=== PATIENT | male | born 1955 | race Caucasian/White ===

== ENCOUNTER 2019-02-28 06:03 | Inpatient (IN) | payer MEDICARE ==
[2019-02-25 14:13] LABS: BASOPHILS # (AUTO) 0.1 (0.0-0.1); BASOPHILS % 1.4 % (0.0-1.0); EOSINOPHILS # (AUTO) 0.3 (0.0-0.4); EOSINOPHILS % 4.5 % (0.0-6.0); HEMATOCRIT 47.1 % (38.2-49.6); HEMOGLOBIN 15.1 g/dL (14.0-18.0); LYMPHOCYTES # (AUTO) 0.9 (1.0-3.2); LYMPHOCYTES % 14.5 % (18.0-39.1); MEAN CORPUSCULAR HGB CONC 32.1 g/dL (31-35); MEAN CORPUSCULAR VOLUME 99.8 fL (81-99); MONOCYTES # (AUTO) 0.6 (0.2-0.8); MONOCYTES % 8.6 % (4.4-11.3); NEUTROPHILS # (AUTO) 4.6 (2.1-6.9); NEUTROPHILS % 70.5 % (38.7-80.0); PLATELET COUNT 136 x10e3/uL (140-360); RED BLOOD COUNT 4.72 x10e6/uL (4.3-5.7); RED CELL DISTRIBUTION WIDTH 15.8 % (11.7-14.4)
[2019-02-25 14:33] LABS: INR 1.03
[2019-02-25 14:34] LABS: PARTIAL THROMBOPLASTIN TIME 30.2 seconds (23.8-35.5)
[2019-02-25 14:41] LABS: ALBUMIN 3.8 g/dL (3.5-5.0); ALBUMIN/GLOBULIN RATIO 0.8 (0.8-2.0); ANION GAP 17.2 mmol/L (8-16); CALCIUM 9.4 mg/dL (8.4-10.2); CREATININE, SERUM 5.4 mg/dL (0.72-1.25); POTASSIUM 4.2 mmol/L (3.5-5.1)
--- NOTE | 2019-02-25 15:17 | Diagnostic Imaging Report ---
EXAMINATION: CHEST 2 VIEWS INDICATION: Pre-operative COMPARISON: None FINDINGS: TUBES and LINES: Left IJ tunneled hemodialysis catheter terminates in the right atrium. LUNGS: The lungs are well-inflated. There are postoperative findings of the left lung with surgical clips overlying areas of interstitial scarring at the left upper lung zone. No focal consolidation or pulmonary edema. PLEURA: Small left pleural effusion. No right pleural effusion. No pneumothorax. HEART AND MEDIASTINUM: The cardiomediastinal silhouette is normal in size and contour. BONES AND SOFT TISSUES: No acute fracture or dislocation. UPPER ABDOMEN: No free air under the diaphragm. Surgical clips overlie the left mid abdomen. IMPRESSION: Postoperative changes of the left lung. Small left pleural effusion. No focal consolidation or pulmonary edema. Signed by: Diana Sanchez MD on 02/25/2019 3:14 PM
--- NOTE | 2019-02-25 16:40 | NUR ---
JUAN VENEGAS RN WITH DR. LAWRENCE'S OFFICE NOTIFIED OF SMALL LEFT PLEURAL EFFUSION CHEST X-RAY RESULT.
[~2019-02-28] VITALS: Ht 175.3 cm; Wt 59.4 kg
[2019-02-28] VITALS (9 sets, daily range): BP systolic 140–189; BP diastolic 67–121
[~2019-02-28 06:03] MED LIST: CARVEDILOL12.5 MG PO; HYDRALAZINE HCL25 MG PO; LISINOPRIL10 MG PO; LYRICA75 MG PO; MELOXICAM7.5 MG PO; METOPROLOL TART25 MG PO; NIFEDIPINE ER30 M1 PO; VITAMIN D350000 UNIT PO
--- OUTSIDE RECORDS SUMMARY | 2019-02-28 06:11 | XMS REPORT | Continuity of Care Document ---
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 Name Role Phone [employer] Information Sensor[employer] Unavailable Unavailable Problems Problem Status Onset Date Classification Date Reported Comments Source UNK Active 01/03/2019 [facility] Pain in right elbow 06/15/2018 12/26/2018 OP[facility] [place]aman[place] M25.521 - PAIN IN RIGHT ELBOW Active 06/08/2018 [facility] [place] OTHER Active 02/15/2018 [facility] VOLUME OVERLOAD Active 02/15/2018 [facility] M62.81 MUSCLE WEAKNESS 02/11/2018 Diagnosis 02/16/2018 [facility] L97.929 NON-PRESSURE CHRONIC ULCER OF UNSPECIFIED PART OF LEFT LOWER LEG WITH UNSPECIFIED SEVERITY 02/09/2018 Diagnosis 02/16/2018 SNF: [facility] [place] [facility] M86.672 OTHER CHRONIC OSTEOMYELITIS, LEFT ANKLE AND FOOT 02/09/2018 Diagnosis 02/16/2018 [facility] E46 UNSPECIFIED PROTEIN-[place]OR[place] MALNUTRITION 02/09/2018 Diagnosis 02/16/2018 [facility] E88.9 METABOLIC DISORDER, UNSPECIFIED 02/09/2018 Diagnosis 02/16/2018 SNF: [facility] AMS Active 02/02/2018 [facility] Acinetobacter1, 2 Active 01/04/2018 Problem 12/26/2018 wound, 01/04/2018 Problem added by Discern Expert. REY Ansari,[facility] VRE5, 6 Active 01/04/2018 Problem 12/26/2018 wound, 01/04/2018 Problem added by Discern Expert[facility] Enterobacter3, 4 Active 01/03/2018 Problem 12/26/2018 wound, 01/03/2018 Problem added by Discern Expert. REY Ansari [place] DIZZINESS Active 01/01/2018 [facility] NEAR SYNCOPE Active 01/01/2018 [facility] ABNORMAL LABS Active 12/12/2017 [facility] CELLULITIS, HYPERKALEMIA Active 12/12/2017 [facility] R27.8 OTHER LACK OF COORDINATION 11/24/2017 Diagnosis 02/16/2018 SNF: [facility] R26.89 OTHER ABNORMALITIES OF GAIT AND MOBILITY 11/24/2017 Diagnosis 02/16/2018 SNF: [facility] Z89.412 ACQUIRED ABSENCE OF LEFT GREAT TOE 11/24/2017 Diagnosis 02/16/2018 SNF: [facility] D63.1 ANEMIA IN CHRONIC KIDNEY DISEASE 11/24/2017 Diagnosis 02/16/2018 SNF: [facility] N04.9 NEPHROTIC SYNDROME WITH UNSPECIFIED MORPHOLOGIC CHANGES 11/24/2017 Diagnosis 02/16/2018 SNF: [facility] L03.115 CELLULITIS OF RIGHT LOWER LIMB 11/24/2017 Diagnosis 02/16/2018 SN[facility]: [facility] M86.172 OTHER ACUTE OSTEOMYELITIS, LEFT ANKLE AND FOOT 11/24/2017 Diagnosis 02/16/2018 SNF: [facility] E08.8 DIABETES MELLITUS DUE TO UNDERLYING CONDITION WITH UNSPECIFIED COMPLICATIONS 09/27/2017 Diagnosis 02/16/2018 SN[facility]: [facility] I73.9 PERIPHERAL VASCULAR DISEASE, UNSPECIFIED 09/27/2017 Diagnosis 02/16/2018 SN[facility]: [facility] I10 ESSENTIAL HYPERTENSION 09/27/2017 Diagnosis 02/16/2018 SN[facility]: [facility] I50.20 UNSPECIFIED SYSTOLIC HEART FAILURE 09/27/2017 Diagnosis 02/16/2018 SN[facility]: [facility] Z99.2 DEPENDENCE ON RENAL DIALYSIS 09/27/2017 Diagnosis 02/16/2018 SN[facility]: [facility] I25.10 ATHEROSCLEROTIC HEART DISEASE OF [place] CORONARY ARTERY WITHOUT ANGINA PECTORIS 09/27/2017 Diagnosis 02/16/2018 SN[facility]: [facility] E11.319 TYPE 2 DIABETES MELLITUS WITH UNSPECIFIED DIABETIC RETINOPATHY WITHOUT MACULAR EDEMA 09/27/2017 Diagnosis 02/16/2018 SN[facility]: [facility] E78.5 HYPERLIPIDEMIA, UNSPECIFIED 09/27/2017 Diagnosis 02/16/2018 SN[facility]: [facility] E13.621 OTHER SPECIFIED DIABETES MELLITUS WITH FOOT ULCER 09/27/2017 Diagnosis 02/16/2018 SNF: [facility] N18.6 END STAGE RENAL DISEASE 09/27/2017 Diagnosis 02/16/2018 SNF: [facility] E11.40 TYPE 2 DIABETES MELLITUS WITH DIABETIC NEUROPATHY, UNSPECIFIED 09/27/2017 Diagnosis 02/16/2018 SNF: [facility] I96 GANGRENE, NOT ELSEWHERE CLASSIFIED 09/27/2017 Diagnosis 02/16/2018 SNF: [facility] A41.9 SEPSIS, UNSPECIFIED ORGANISM 09/27/2017 Diagnosis 12/01/2017 SNF: [facility] Carotid artery disease Active 07/09/2017 Problem 01/19/2018 [facility] History of renal cell cancer Active 07/06/2017 Problem 01/19/2018 [facility] Acute on chronic combined systolic and diastolic CHF, NYHA class 3 Active 07/05/2017 Problem 01/19/2018 [facility] Actinic keratosis Active 01/26/2017 Problem 01/19/2018 [facility] Diabetic toe ulcer Active 04/29/2016 Problem 01/19/2018 [facility] Tinnitus Active 04/29/2016 Problem 01/19/2018 [facility] 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 dysfunction, NYHA class 3 and CKD stage 4 Active 04/28/2016 Problem 01/19/2018 [facility] History of CVA Active 04/25/2016 Problem 01/19/2018 [facility] WEAKNESS Active 04/03/2016 [facility] TIA, HYPERTENSION Active 04/03/2016 [facility] Type 2 diabetes, uncontrolled, with ulcer of toe Active 11/09/2015 Problem 01/19/2018 [facility] 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 Active 08/13/2015 Problem 01/19/2018 [facility] Hyperlipidemia Active 07/16/2015 Problem 01/19/2018 [facility] H/O: urethral stricture Active 07/23/2010 Problem 01/19/2018 [facility] HTN Active 07/23/2010 Problem 01/19/2018 [facility] Syncope and collapse 02/01/2018 [facility] Diabetes Active Problem 12/26/2018 REY Ansari, [place] H/O: stroke Resolved Problem 12/26/2018 REY Ansari,[facility] Hypertension Active Problem 12/26/2018 REY Harrella,[facility] Cancer of kidney Active Problem 12/26/2018 JESICAD Clayton,[facility] Primary cancer of skin of chest Active Problem 12/26/2018 JESICABud SeamanClayton,[facility] Severe protein-calorie malnutrition Active Problem 12/26/2018 REY Anasri,[facility] Autonomic orthostatic hypotension Active Problem 01/19/2018 [facility] Moderate nonproliferative diabetic retinopathy of both eyes associated with type 2 diabetes mellitus Active Problem 01/19/2018 [facility] Right upper extremity numbness Active Problem 01/19/2018 [facility] Proteinuria Active Problem 01/19/2018 [facility] Vitamin D deficiency Active Problem 01/19/2018 [facility] Acute kidney injury superimposed on chronic kidney disease Active Problem 01/19/2018 [facility] Impaired mobility and activities of daily living Active Problem 01/19/2018 [facility] Non compliance w medication regimen Active Problem 01/19/2018 [facility] Stenosis, cervical spine Active Problem 01/19/2018 [facility] CKD stage 3, GFR 30-59 ml/min Active Problem 01/19/2018 [facility] Urinary obstruction Active Problem 01/19/2018 [facility] TRANSIENT CEREBRAL ISCHEMIC ATTACK, UNSP Active [facility] CELLULITIS, UNSPECIFIED Active [facility] HYPERKALEMIA Active [facility] SYNCOPE AND COLLAPSE Active [facility] ALTERED MENTAL STATUS, UNSPECIFIED Active [facility] FLUID OVERLOAD, UNSPECIFIED Active [facility] Medications Medication Details Route Status Patient Instructions Ordering Provider Order Date Source Docusate 100 mg, 1 cap, Route: PO, Drug form: CAP, BID, Dosing Weight 62.273, kg, Start date: 02/16/18 9:00:00 CDT, Duration: 30 day, Stop date: 03/17/18 17:00:00 CDTNotes: (Same as: Colace) (Do Not Crush) Inactive 02/16/2018 [facility] Acetaminophen 325 MG / Hydrocodone Bitartrate 5 MG Oral Tablet 1 tab, Route: PO, Drug Form: TAB, Dosing Weight 62.273, kg, Q4H, PRN Pain Score 4-6, Start date: 02/15/18 23:51:00 CDT, Duration: 30 day, Stop date: 03/17/18 23:50:00 CDTNotes: (Same as: Lolo 325/5) Do not exceed 4gm/day of acetaminophen. No Longer Active 02/16/2018 [facility] Acetaminophen 650 mg, 2 tab, Route: PO, Drug form: TAB, Q4H, Dosing Weight 62.273, kg, PRN Pain 1-3/Temp > 100.4 F, Start date: 02/15/18 23:51:00 CDT, Duration: 30 day, Stop date: 03/17/18 23:50:00 CDTNotes: Do not exceed 4 gm/day. (Same as: Tylenol) No Longer Active 02/16/2018 [facility] Ondansetron 4 mg, 2 mL, Route: IVP, Drug form: INJ, Q6H, Dosing Weight 62.273, kg, PRN Nausea & Vomiting, Start date: 02/15/18 23:51:00 CDT, Duration: 30 day, Stop date: 03/17/18 23:50:00 CDTNotes: (Same as: Zofran) MEDICATION WASTE Product Size: 4 mg Product Wasted: ___ mg No Longer Active 02/16/2018 [facility] Kayexalate 30 gm, 120 mL, Route: PO, Drug form: SUSP, ONCE, Dosing Weight 62.273, kg, Start date: 02/15/18 23:35:00 CDT, Stop date: 02/15/18 23:35:00 CDTNotes: (sodium polystyrene sulfonate 15 gm/60 ml JUSTIN) Sh aguila well before use. (Same as: Kayexalate, SPS) Inactive 02/16/2018 [facility] NIFEdipine 90 mg oral tablet, extended release 90 mg=1 tab, PO, Daily, 0 Refill(s) Active 02/16/2018 [facility] metoprolol tartrate 25 mg oral tablet 25 mg=1 tab, PO, BID, 0 Refill(s) Active 02/16/2018 [facility] Atorvastatin Calcium Tablet 40 MG Give 1 tablet by mouth at bedtime for HLD Oral Active 02/11/2018 SNF: [facility] HydrALAZINE HCl Tablet 50 MG Give 1.5 tablet by mouth three times a day for HTN total 75 ng, hold for SBP less than 110 Oral Active 02/10/2018 SNF: [facility] NIFEdipine ER Osmotic Release Tablet Extended Release 24 Hour 90 MG Give 1 tablet by mouth one time a day for HTN hold for SBP less than 110 Oral Active 02/10/2018 SNF: [facility] Angelito [facility] [place] [facility] Metoprolol Tartrate Tablet 25 MG Give 1 tablet by mouth two times a day for HTN hold for SBP less than 110 or pulse less 60 Oral Active 02/10/2018 SNF: [facility] Aspirin Tablet 81 MG Give 1 tablet by mouth one time a day for prophylactic Oral Active 02/10/2018 [facility] Lis[facility] Tablet 20 MG Give 1.5 tablet by mouth one time a day for HTN hold for SBP less than 110 Oral Active 02/10/2018 SNF: [facility] Nitro[facility] Tablet Sublingual 0.4 MG Give 1 tablet sublingually every 5 minutes as needed for chest pain Sublingual Active 02/10/2018 SNF: [facility] lidocaine 1% 5 mL, Route: IV, Drug Form: INJ, Dosing Weight 58.267, kg, ONCE, Start date: 02/09/18 18:34:00 CDT, Stop date: 02/09/18 18:34:00 CDTNotes: Preservative free. (Same as: Xylocaine MPF) Inactive 02/09/2018 [facility] Lidocaine Hydrochloride 10 MG/ML Injectable Solution 5 mL, Route: IV, Drug Form: INJ, Dosing Weight 58.267, kg, ONCE, Start date: 02/09/18 17:53:00 CDT, Stop date: 02/09/18 17:53:00 CDTNotes: Preservative free. (Same as: Xylocaine MPF) Inactive 02/09/2018 [facility] lidocaine 2% 200 mg, 10 mL, Route: IV, Drug Form: INJ, Dosing Weight 58.267, kg, ONCE, Start date: 02/09/18 17:28:00 CDT, Stop date: 02/09/18 17:28:00 CDTNotes: Syringe (Same as: Xylocaine) Inactive 02/09/2018 [facility] Lidocaine Hydrochloride 10 MG/ML Injectable Solution 2 mL, Route: INTRADERM, Drug Form: INJ, Dosing Weight 58.267, kg, ONCE, Start date: 02/09/18 16:08:00 CDT, Stop date: 02/09/18 16:08:00 CDTNotes: Preservative free. (Same as: Xylocaine MPF) Inactive 02/09/2018 [facility] lisinopril 20 mg oral tablet 30 mg=1.5 tab, PO, Daily, 0 Refill(s) Active 02/09/2018 [facility] Hydralazine Hydrochloride 50 MG Oral Tablet 75 mg=1.5 tab, PO, TID, 0 Refill(s) Active 02/09/2018 [facility] Lisinopril 30 mg, 1.5 tab, Route: PO, Drug form: TAB, Daily, Dosing Weight 58.267, kg, Start date: 02/09/18 9:00:00 CDT, Duration: 30 day, Stop date: 03/10/18 9:00:00 CDTNotes: (Same as: Prinivil, Zestril) Inactive 02/09/2018 [facility] Lisinopril 10 mg, 2 tab, Route: PO, Drug form: TAB, ONCE, Dosing Weight 58.267, kg, Start date: 02/08/18 22:49:00 CDT, Stop date: 02/08/18 22:49:00 CDTNotes: (Same as: Prinivil, Zestril) Inactive 02/09/2018 [facility] Hydralazine Hydrochloride 50 MG Oral Tablet 75 mg, 1.5 tab, Route: PO, Drug form: TAB, TID, Dosing Weight 58.267, kg, Start date: 02/08/18 9:00:00 CDT, Duration: 30 day, Stop date: 03/09/18 17:00:00 CDTNotes: (Same as: Apresoline) May interfere w/enteral feedings Take With Food No Longer Active 02/08/2018 [facility] heparin sodium, porcine 2500 UNT/ML Injectable Solution 5,000 unit, 1 mL, Route: SUB-Q, Drug form: INJ, Q8Hnow, Dosing Weight 58.267, kg, Start date: 02/07/18 21:00:00 CDT, Duration: 30 day, Stop date: 03/09/18 13:00:00 CDTNotes: porcine heparin No Longer Active 02/08/2018 [facility] Labetalol 10 mg, 2 mL, Route: IV, Drug form: INJ, ONCE, Dosing Weight 58.267, kg, Start date: 02/07/18 5:09:00 CDT, Stop date: 02/07/18 5:09:00 CDTNotes: (Same as: Normodyne, Trandate) Push over 2 minutes Give bolus over 2-3 minutes. Inactive 02/07/2018 [facility] Hydralazine 20 mg, 1 mL, Route: IV, Drug form: INJ, ONCE, Dosing Weight 58.267, kg, Start date: 02/07/18 2:46:00 CDT, Stop date: 02/07/18 2:46:00 CDTNotes: (Same as: Apresoline) Push over 5 minutes Inactive 02/07/2018 [facility] *RN* - Restore Hydrogel in CPD *RN* - Restore Hydrogel in CPD, attn, Drug form: MISC, Route: MISC, QSHIFT, 02/07/18 0:00:00 CDT, Duration: 30 day, Stop date: 03/08/18 16:00:00 CDT No Longer Active 02/07/2018 [facility] Restore Hydrogel topical gel 1 appl, Route: TOP, Dosing Weight 58.267, kg, BID, Start date: 02/06/18 17:00:00 CDT, Duration: 30 day, Stop date: 03/08/18 9:00:00 CDT No Longer Active 02/06/2018 [facility] vancomycin + Sodium Chloride 0.9% IV 100 mL 500 mg, Route: IVPB, Q-M-W-F, Start date: 02/05/18 21:00:00 CDT, Duration: 30 day, Stop date: 03/07/18 9:00:00 CDT, ABX Indication: Bone/Joint InfectionNotes: TIME CRITICAL MEDICATION (Same As: Vancocin) For adult patients only: Round to nearest 250 mg per Medical Staff approval No Longer Active 02/06/2018 [facility] Amikin + Sodium Chloride 0.9% IV 100 mL 300 mg, 1.2 mL, Route: IVPB, Drug form: INJ, Q-M-W-F, Start date: 02/05/18 20:00:00 CDT, Duration: 30 day, Stop date: 03/05/18 17:00:00 CDTNotes: TIME CRITICAL MEDICATION (Same as: Amikin) For adult patients only: Round to nearest 50 mg per Medical Staff approval MEDICATION WASTE Product Size: 1000 mg Product Wasted: ___ mg No Longer Active 02/06/2018 [facility] Calcium Gluconate 3 gm, 30 mL, Route: IVPB, PRN, Dosing Weight 58.267, kg, PRN Abnormal Lab Result, For NON-ICU Patients Only., Start date: 02/05/18 18:19:00 CDT, Duration: 30 day, Stop date: 03/07/18 18:18:00 CDTNotes: WASTE: F/P - Sink; E - Municipal Trash Bin No Longer Active 02/05/2018 [facility] Magnesium Oxide 800 mg, 2 tab, Route: PO, Drug form: TAB, PRN, Dosing Weight 58.267, kg, PRN Abnormal Lab Result, For NON-ICU Patients Only., Start date: 02/05/18 18:19:00 CDT, Duration: 30 day, Stop date: 03/07/18 18:18:00 CDTNotes: (Same as: Mag-Ox 400) Magnesium oxide 240fb=677ly elemental magnesium Dose=____mg magnesium oxide (___mg elemental magnesium) No Longer Active 02/05/2018 [facility] Magnesium Sulfate 1 gm, 100 mL, Route: IVPB, Drug form: INJ, PRN, Dosing Weight 58.267, kg, PRN Abnormal Lab Result, For NON-ICU Patients Only., Start date: 02/05/18 18:19:00 CDT, Duration: 30 day, Stop date: 03/07/18 18:18:00 CDTNotes: WASTE: F/P - Sink; E - Municipal Trash Bin No Longer Active 02/05/2018 [facility] sodium phosphate 30 mmol, 10 mL, Route: IVPB, PRN, Dosing Weight 58.267, kg, PRN Abnormal Lab Result, For NON-ICU Patients Only., Start date: 02/05/18 18:19:00 CDT, Duration: 30 day, Stop date: 03/07/18 18:18:00 CDT No Longer Active 02/05/2018 [facility] potassium phosphate 15 mmol, 5 mL, Route: IVPB, PRN, Dosing Weight 58.267, kg, PRN Abnormal Lab Result, For NON-ICU Patients Only., Start date: 02/05/18 18:19:00 CDT, Duration: 30 day, Stop date: 03/07/18 18:18:00 CDTNotes: (Same as: K Phosphate.) 1 mMol phoshate has 1.47 mEq potassium Infuse over 4 hours No Longer Active 02/05/2018 [facility] Potassium Chloride 10 mEq, 5 mL, Route: IVPB, PRN, Dosing Weight 58.267, kg, PRN Abnormal Lab Result, For NON-ICU Patients Only, Start date: 02/05/18 18:19:00 CDT, Duration: 30 day, Stop date: 03/07/18 18:18:00 CDTNotes: MUST be Diluted before use (Same as: KCl) MEDICATION WASTE Product Size: 40 mEq Product Wasted: ___ mEq No Longer Active 02/05/2018 [facility] potassium phosphate-sodium phosphate 250 mg-280 mg-160 mg oral powder for reconstitution 2 pkt, Route: PO, Drug Form: PDR/REC, Dosing Weight 58.267, kg, PRN, PRN Abnormal Lab Result, For NON-ICU Patients Only, Start date: 02/05/18 18:19:00 CDT, Duration: 30 day, Stop date: 03/07/18 18:18:00 CDTNotes: (Same as: Phos-NaK) Each 1.5 gm pkt has 250mg phosphorous. Mix w/2.5oz water and stir. No Longer Active 02/05/2018 [facility] epoetin ruddy 10,000 unit, 1 mL, Route: SUB-Q, Drug form: INJ, Q-M-W-F, Start date: 02/05/18 17:00:00 CDT, Duration: 30 day, Stop date: 03/05/18 17:00:00 CDTNotes: (Same as: Procrit) epoetin ruddy 45739 unit/1 ml VL. For dialysis use only. (Procrit) WASTE: F/P - Red; E -Red MEDICATION WASTE Product Size: 53212 unit Product Wasted: ___ unit No Longer Active 02/05/2018 [facility] NIFEdipine 90 mg oral tablet, extended release 90 mg, 1 tab, Route: PO, Drug form: ERTAB, Daily, Dosing Weight 58.267, kg, Start date: 02/05/18 9:00:00 CDT, Duration: 30 day, Stop date: 03/06/18 9:00:00 CDTNotes: (Same as: Adalat CC,Procardia XL) "Do Not Crush" "Avoid grapefruit and grapefruit juice" No Longer Active 02/05/2018 [facility] Amikacin 250 mg, Route: IV, Dosing Weight 58.267, kg, Q-M-W-F, Start date: 02/05/18 9:00:00 CDT, Duration: 14 day, Stop date: 02/16/18 9:00:00 CDT, Pharmacy to dose No Longer Active 02/05/2018 [facility] cadexomer iodine 0.009 MG/MG Topical Gel [Iodosorb] 1 appl, Route: TOP, Daily, Drug form: GEL, Start date: 02/05/18 9:00:00 CDT, Duration: 30 day, Stop date: 03/06/18 9:00:00 CDTNotes: Same as; Iodosorb FOR EXTERNAL USE ONLY Non-Formulary Drug No Longer Active 02/05/2018 [facility] Lopressor 25 mg, 1 tab, Route: PO, Drug form: TAB, Q12H, Dosing Weight 58.267, kg, Start date: 02/04/18 21:00:00 CDT, Duration: 30 day, Stop date: 03/06/18 9:00:00 CDTNotes: (Same as: Lopressor) No Longer Active 02/05/2018 [facility] atorvastatin 40 mg, 1 tab, Route: PO, Drug form: TAB, Bedtime, Dosing Weight 58.267, kg, Start date: 02/04/18 21:00:00 CDT, Duration: 30 day, Stop date: 03/05/18 21:00:00 CDTNotes: (Same as: Lipitor) No Longer Active 02/05/2018 [facility] Hydralazine 10 mg, 0.5 mL, Route: IV, Drug form: INJ, Q4H, Dosing Weight 58.267, kg, PRN Hypertension, Start date: 02/04/18 18:29:00 CDT, Duration: 30 day, Stop date: 03/06/18 18:28:00 CDTNotes: (Same as: Apresoline) Push over 5 minutes No Longer Active 02/04/2018 [facility] Hydralazine Hydrochloride 50 MG Oral Tablet 50 mg, 1 tab, Route: PO, Drug form: TAB, TID, Dosing Weight 58.267, kg, Start date: 02/04/18 17:00:00 CDT, Duration: 30 day, Stop date: 03/06/18 13:00:00 CDTNotes: (Same as: Apresoline) May interfere w/enteral feedings Take With Food No Longer Active 02/04/2018 [facility] Aspirin 81 MG Enteric Coated Tablet 81 mg, 1 tab, Route: PO, Drug form: ECTAB, Daily, Dosing Weight 58.267, kg, Start date: 02/04/18 14:30:00 CDT, Duration: 30 day, Stop date: 03/06/18 9:00:00 CDTNotes: Do not crush or chew. (Same As: Ecotrin) No Longer Active 02/04/2018 [facility] Lisinopril 20 mg, 1 tab, Route: PO, Drug form: TAB, Daily, Dosing Weight 58.267, kg, Start date: 02/04/18 14:30:00 CDT, Duration: 30 day, Stop date: 03/06/18 9:00:00 CDTNotes: (Same as: Prinivil, Zestril) No Longer Active 02/04/2018 [facility] Nitroglycerin 0.4 MG Sublingual Tablet [Nitrostat] 0.4 mg, 1 tab, Route: SL, Drug form: TAB, Q5Min, Dosing Weight 58.267, kg, PRN Chest Pain, Start date: 02/04/18 13:58:00 CDT, Duration: 30 day, Stop date: 03/06/18 13:57:00 CDTNotes: (Same as:Nitroquick, Nitrostat) "Do Not Crush" Sublingual tablet No Longer Active 02/04/2018 [facility] Hydralazine 10 mg, 0.5 mL, Route: IVP, Drug form: INJ, ONCE, Dosing Weight 58.267, kg, Start date: 02/04/18 6:22:00 CDT, Stop date: 02/04/18 6:22:00 CDTNotes: (Same as: Apresoline) Push over 5 minutes Inactive 02/04/2018 [facility] Hydralazine 10 mg, 0.5 mL, Route: IVP, Drug form: INJ, Q4H, Dosing Weight 58.267, kg, PRN Elevated BP, Start date: 02/04/18 0:26:00 CDT, Duration: 30 day, Stop date: 03/06/18 0:25:00 CDTNotes: (Same as: Dylon wills) Push over 5 minutes Inactive 02/04/2018 [facility] Amikin + Sodium Chloride 0.9% IV 100 mL 450 mg, 9 mL, Route: IV, Drug form: INJ, ONCE, Start date: 02/03/18 17:00:00 CDT, Stop date: 02/03/18 17:00:00 CDTNotes: TIME CRITICAL MEDICATION (Same as: Amikin) For adult patients only: Round to nearest 50 mg per Medical Staff approval Inactive 02/03/2018 [facility] linezolid 600 mg, 300 mL, Route: IVPB, Drug form: SOLN, [id number], Dosing Weight 58.267, kg, Start date: 02/03/18 15:00:00 CDT, Duration: 14 day, Stop date: 02/17/18 6:00:00 CDT, ABX Indication: Bone/Joint Infec tionNotes: (Same as: Zyvox) No Longer Active 02/03/2018 [facility] Unasyn 3 gm, Route: IVPB, [id number], Dosing Weight 58.267, kg, Start date: 02/03/18 15:00:00 CDT, Duration: 30 day, Stop date: 03/05/18 3:00:00 CDTNotes: Dosing based on Ampicillin component (Same as: Unasyn) No Longer Active 02/03/2018 [facility] Aranesp 100 microgram, Route: SUB-Q, Drug form: SOLN, Q7D, Dosing Weight 58.267, kg, Start date: 02/03/18 12:00:00 CDT, Duration: 30 day, Stop date: 03/03/18 9:00:00 CDT Inactive 02/03/2018 [facility] vancomycin + Dextrose 5% in Water IV 250 mL 1 gm, Route: IVPB, Drug form: INJ, ONCE, Start date: 02/03/18 8:00:00 CDT, Stop date: 02/03/18 8:00:00 CDT, ABX Indication: Bone/Joint InfectionNotes: TIME CRITICAL MEDICATION (Same As: Vancocin) Infusion rate 2001 mg: infuse over 2.5 hours For adult patients only: Round to nearest 250 mg per Medical Staff approval MEDICATION WASTE Product Size: 1000 mg Product Wasted: ___ mg Inactive 02/03/2018 [facility] Zosyn + Sodium Chloride 0.9% IV 100 mL 3.375 gm, Route: IVPB, [id number], Dosing Weight 58.267, kg, Start date: 02/03/18 5:30:00 CDT, Duration: 7 day, Stop date: 02/09/18 21:30:00 CDT, ABX Indication: Bone/Joint InfectionNotes: (Same as: Zosyn) Dosing based on Piperacillin component MEDICATION WASTE Product Size: 3375 mg Product Wasted: ___ mg Inactive 02/03/2018 [facility] Vancomycin 1 ea, Route: MISC, ONCALL, Dosing Weight 58.267, kg, Start date: 02/03/18 5:00:00 CDT, Duration: 7 day, Stop date: 02/10/18 4:59:00 CDT, Pharmacy to dose, ABX Indication: Bone/Joint Infection Inactive 02/03/2018 [facility] Zosyn 3.375 gm, Route: IVPB, [id number], Dosing Weight 58.267, kg, Start date: 02/03/18 5:00:00 CDT, Stop date: 02/09/18 21:00:00 CDT, ABX Indication: Bone/Joint InfectionNotes: (Same as: Zosyn) Dosing based on P iperacillin component MEDICATION WASTE Product Size: 3375 mg Product Wasted: ___ mg Inactive 02/03/2018 [facility] Ondansetron 4 mg, 2 mL, Route: IVP, Drug form: INJ, Q6H, Dosing Weight 58.267, kg, PRN Nausea & Vomiting, Start date: 02/02/18 19:52:00 CDT, Duration: 30 day, Stop date: 03/04/18 19:51:00 CDTNotes: (Same as: Zofran) MEDICATION WASTE Product Size: 4 mg Product Wasted: ___ mg No Longer Active 02/03/2018 [facility] Morphine 6 mg, 3 mL, Route: PO, Drug form: SOLN, Q4H, Dosing Weight 58.267, kg, PRN Pain Score 7-10, Start date: 02/02/18 19:52:00 CDT, Stop date: 03/04/18 19:51:00 CDTNotes: (Same as:MORPhine Sulfate) No Longer Active 02/03/2018 [facility] Acetaminophen 650 mg, 2 tab, Route: PO, Drug form: TAB, Q4H, Dosing Weight 58.267, kg, PRN Pain 1-3/Temp > 100.4 F, Start date: 02/02/18 19:52:00 CDT, Duration: 30 day, Stop date: 03/04/18 19:51:00 CDTNotes: Do not exceed 4 gm/day. (Same as: Tylenol) No Longer Active 02/03/2018 [facility] Acetaminophen 325 MG / Hydrocodone Bitartrate 5 MG Oral Tablet 1 tab, Route: PO, Drug Form: TAB, Dosing Weight 58.267, kg, Q4H, PRN Pain Score 4-6, Start date: 02/02/18 19:52:00 CDT, Duration: 30 day, Stop date: 03/04/18 19:51:00 CDTNotes: (Same as: Lolo 325/5) Do not exceed 4gm/day of acetaminophen. No Longer Active 02/03/2018 [facility] Nitroglycerin 0.4 MG Sublingual Tablet [Nitrostat] 0.4 mg=1 tab, SL, Q5Min, PRN Chest Pain, # 25 tab, 0 Refill(s), Pharmacy: [facility]/pharmacy #[id number] Active 01/29/2018 [facility] NIFEdipine 90 mg oral tablet, extended release 90 mg=1 tab, PO, Daily, # 30 tab, 0 Refill(s), Pharmacy: [facility]/pharmacy #[id number] Active 01/29/2018 [facility] Hydralazine 10 mg, 0.5 mL, Route: IVP, Drug form: INJ, Q4H, Dosing Weight 56.449, kg, PRN Hypertension, Start date: 01/26/18 16:56:00 CDT, Duration: 30 day, Stop date: 02/25/18 16:55:00 CDTNotes: (Same as: Hiram glover) Push over 5 minutes No Longer Active 01/26/2018 [facility] Nifedical XL 90 mg, 1 tab, Route: PO, Drug form: ERTAB, Daily, Dosing Weight 56.449, kg, Start date: 01/26/18 9:00:00 CDT, Stop date: 02/24/18 9:00:00 CDTNotes: (Same as: Adalat CC,Procardia XL) "Do Not Crush" "Avoid grapefruit and grapefruit juice" No Longer Active 01/26/2018 [facility] Clonidine 0.1 mg, Route: PO, Drug form: TAB, Q8H, Dosing Weight 56.449, kg, PRN Elevated BP, Start date: 01/25/18 17:18:00 CDT, Duration: 30 day, Stop date: 02/24/18 17:17:00 CDT Inactive 01/25/2018 [facility] Gibson packet 1 pkt, Route: PO, Drug Form: PWDR, Dosing Weight 56.449, kg, BID-Before Meals, Start date: 01/25/18 16:30:00 CDT, Duration: 14 day, Stop date: 02/08/18 7:30:00 CDTNotes: (Same as: Gibson Rico) No Longer Active 01/25/2018 [facility] PHOS-NaK 1 pkt, Route: PO, Drug Form: PDR/REC, Dosing Weight 56.449, kg, QID-Before Meals, Start date: 01/23/18 11:30:00 CDT, Duration: 1 day, Stop date: 01/24/18 7:30:00 CDTNotes: (Same as: Phos-NaK) Each 1.5 gm pkt has 250mg phosphorous. Mix w/2.5oz water and stir. No Longer Active 01/23/2018 [facility] Amlodipine 5 mg, 1 tab, Route: PO, Drug form: TAB, Daily, Dosing Weight 56.449, kg, Start date: 01/23/18 9:45:00 CDT, Duration: 30 day, Stop date: 02/22/18 9:00:00 CDTNotes: (Same as: Norvasc) No Longer Active 01/23/2018 [facility] Calcitriol 0.25 microgram, 1 cap, Route: PO, Drug form: CAP, Daily, Dosing Weight 56.449, kg, Start date: 01/23/18 9:00:00 CDT, Duration: 30 day, Stop date: 02/21/18 9:00:00 CDTNotes: (Same As: Rocaltrol) No Longer Active 01/23/2018 [facility] Folic Acid 1 mg, 1 tab, Route: PO, Drug form: TAB, Daily, Dosing Weight 56.449, kg, Start date: 01/23/18 9:00:00 CDT, Duration: 30 day, Stop date: 02/21/18 9:00:00 CDTNotes: (Same as: Folvite) No Longer Active 01/23/2018 [facility] Magnesium Sulfate 2 gm, 50 mL, Route: IVPB, Drug form: INJ, ONCE, Dosing Weight 56.449, kg, Start date: 01/22/18 17:23:00 CDT, Stop date: 01/22/18 17:23:00 CDTNotes: WASTE: F/P - Sink; E - Municipal Trash Bin Inactive 01/22/2018 [facility] potassium chloride + Sodium Chloride 0.9% IV 95 mL 10 mEq, 5 mL, Route: IVPB, Q1H, Start date: 01/21/18 11:00:00 CDT, Duration: 3 doses or times, Stop date: 01/21/18 13:00:00 CDTNotes: MUST be Diluted before use (Same as: KCl) MEDICATION WASTE Product Size: 40 mEq Product Wasted: ___ mEq Inactive 01/21/2018 [facility] Potassium Chloride 30 mEq, Route: IV, ONCE, Dosing Weight 56.449, kg, Start date: 01/21/18 9:47:00 CDT, Stop date: 01/21/18 9:47:00 CDT Inactive 01/21/2018 [facility] epoetin ruddy 10,000 unit, 1 mL, Route: SUB-Q, Drug form: INJ, Q-M-W-F, Start date: 01/20/18 17:00:00 CDT, Stop date: 02/16/18 17:00:00 CDTNotes: (Same as: Procrit) epoetin ruddy 94571 unit/1 ml VL. For dialysis use only. (Procrit) WASTE: F/P - Red; E -Red MEDICATION WASTE Product Size: 86106 unit Product Wasted: ___ unit No Longer Active 01/20/2018 [facility] darbepoetin ruddy 200 microgram, Route: SUB-Q, Drug form: SOLN, Q7D, Dosing Weight 56.449, kg, Start date: 01/20/18 10:00:00 CDT, Duration: 30 day, Stop date: 02/17/18 9:00:00 CDT Inactive 01/20/2018 [facility] potassium chloride 20 mEq oral tablet, extended release 20 mEq, 1 tab, Route: PO, Drug form: ERTAB, ONCE, Dosing Weight 56.449, kg, Start date: 01/20/18 9:54:00 CDT, Stop date: 01/20/18 9:54:00 CDTNotes: (Same as: K- Dur 20) "Do Not Crush" For patients unable to swallow tablet, dissolve in one half glass of water. Allow about 2 minutes for the tablets to disintegrate. Stir before giving to prepare slurry and administer. Please exclude Patient’s with feeding tube less than 14 Welsh (Dobhoff, J-tube etc) and pediatric and patients. With food and full glass of water Inactive 01/20/2018 [facility] Vitamin B12 500 microgram, 1 tab, Route: PO, Drug form: TAB, Daily, Dosing Weight 56.449, kg, Start date: 01/20/18 9:00:00 CDT, Duration: 30 day, Stop date: 02/18/18 9:00:00 CDTNotes: (Same As: Vitamin B12) No Longer Active 01/20/2018 [facility] Ergocalciferol 50,000 IntlUnit, 1 cap, Route: PO, Drug form: CAP, Daily, Dosing Weight 56.449, kg, Start date: 01/20/18 9:00:00 CDT, Duration: 3 day, Stop date: 01/22/18 9:00:00 CDTNotes: (Same as: Vitamin D) "Do Not Crush" No Longer Active 01/20/2018 [facility] Amikacin 250 mg, 1 mL, Route: IV, Drug form: INJ, Q-M-W-F, Dosing Weight 56.449, kg, Start date: 01/19/18 17:00:00 CDT, Stop date: 01/31/18 17:00:00 CDTNotes: TIME CRITICAL MEDICATION (Same as: Amikin) For adul t patients only: Round to nearest 50 mg per Medical Staff approval MEDICATION WASTE Product Size: 500 mg Product Wasted: ___ mg No Longer Active 01/19/2018 [facility] Thiamine 100 mg, 1 mL, Route: IVP, Drug form: INJ, Daily, Dosing Weight 56.449, kg, Start date: 01/19/18 16:00:00 CDT, Duration: 30 day, Stop date: 02/18/18 9:00:00 CDTNotes: (Same As: Vitamin B1) No Longer Active 01/19/2018 [facility] Nitroglycerin 0.4 MG Sublingual Tablet [Nitrostat] 0.4 mg, 1 tab, Route: SL, Drug form: TAB, Q5Min, Dosing Weight 56.449, kg, PRN Chest Pain, Start date: 01/19/18 12:03:00 CDT, Duration: 3 doses or times, Stop date: Limited # of timesNotes: (Same as:Nitroquick, Nitrostat) "Do Not Crush" Sublingual tablet No Longer Active 01/19/2018 [facility] Terbutaline 0.25 mg, 0.25 mL, Route: SUB-Q, Drug form: INJ, Q6H, Dosing Weight 56.449, kg, PRN Bradycardia, Start date: 01/19/18 12:03:00 CDT, Duration: 30 day, Stop date: 02/18/18 12:02:00 CDTNotes: DO NOT USE IN [employer] ARE[place] (Same As: Brethine) No Longer Active 01/19/2018 [facility] Lopressor 2.5 mg, 2.5 mL, Route: IVP, Drug form: INJ, Q3H, Dosing Weight 56.449, kg, PRN Tachycardia, Start date: 01/19/18 12:03:00 CDT, Duration: 30 day, Stop date: 02/18/18 12:02:00 CDTNotes: (Same as: Lopressor) Push over 2 minutes No Longer Active 01/19/2018 [facility] Morphine 6 mg, 3 mL, Route: PO, Drug form: SOLN, Q4H, Dosing Weight 56.449, kg, PRN Chest Pain, Start date: 01/19/18 12:03:00 CDT, Stop date: 02/18/18 12:02:00 CDTNotes: (Same as:MORPhine Sulfate) No Longer Active 01/19/2018 [facility] Hydralazine 10 mg, 0.5 mL, Route: IV, Drug form: INJ, Q4H, Dosing Weight 56.449, kg, PRN Hypertension, Start date: 01/19/18 12:03:00 CDT, Duration: 30 day, Stop date: 02/18/18 12:02:00 CDTNotes: (Same as: Apresoline) Push over 5 minutes No Longer Active 01/19/2018 [facility] ePHEDrine (ANES) Route: IV, Drug form: INJ, ONCE, Stop date: 01/19/18 10:47:00 CDT Inactive 01/19/2018 [facility] propofol (ANES) Route: IV, Drug form: INJ, ONCE, Stop date: 01/19/18 10:47:00 CDT Inactive 01/19/2018 [facility] norepinephrine (ANES) Route: IV, Drug form: INJ, ONCE, Stop date: 01/19/18 10:47:00 CDT Inactive 01/19/2018 [facility] atropine (ANES) Route: IV, Drug form: INJ, ONCE, Stop date: 01/19/18 10:47:00 CDT Inactive 01/19/2018 [facility] glycopyrrolate (ANES) Route: IV, Drug form: INJ, ONCE, Stop date: 01/19/18 10:47:00 CDT Inactive 01/19/2018 [facility] lidocaine (ANES) Route: IV, Drug form: INJ, ONCE, Stop date: 01/19/18 10:47:00 CDT Inactive 01/19/2018 [facility] midazolam (ANES) Route: IV, Drug form: SOLN, ONCE, Stop date: 01/19/18 10:47:00 CDT Inactive 01/19/2018 [facility] famotidine (ANES) Route: IV, Drug form: INJ, ONCE, Stop date: 01/19/18 10:47:00 CDT Inactive 01/19/2018 [facility] fentaNYL (ANES) Route: IV, Drug form: INJ, ONCE, Stop date: 01/19/18 10:47:00 CDT Inactive 01/19/2018 [facility] Sodium Chloride 0.9% IV 500 mL 500 mL, Rate: 25 ml/hr, Infuse over: 20 hr, Route: IV, Dosing Weight 56.449 kg, Total Volume: 500, Start date: 01/19/18 9:55:00 CDT, Duration: 30 day, Stop date: 02/18/18 9:54:00 CDT, 1.66, m2 Inactive 01/19/2018 [facility] Sodium Chloride 0.9% IV (ANES) 500 mL Route: IV, Total Volume: 500, Start date: 01/19/18 9:41:00 CDT, Stop date: 01/19/18 10:41:00 CDT Inactive 01/19/2018 [facility] Unasyn 3 gm, Route: IVPB, [id number], Dosing Weight 56.449, kg, Start date: 01/18/18 17:00:00 CDT, Duration: 30 day, Stop date: 02/17/18 11:00:00 CDTNotes: Dosing based on Ampicillin component (Same as: Unasyn) No Longer Active 01/18/2018 [facility] Amikacin 400 mg, 1.6 mL, Route: IV, Drug form: INJ, ONCE, Dosing Weight 56.449, kg, Start date: 01/18/18 16:00:00 CDT, Stop date: 01/18/18 16:00:00 CDTNotes: TIME CRITICAL MEDICATION (Same as: Amikin) For ad ult patients only: Round to nearest 50 mg per Medical Staff approval MEDICATION WASTE Product Size: 1000 mg Product Wasted: ___ mg No Longer Active 01/18/2018 [facility] Amikacin 1 ea, Route: MISC, Dosing Weight 56.449, kg, ONCALL, Start date: 01/18/18 15:00:00 CDT, Duration: 1 doses or times, Pharmacy to dose Inactive 01/18/2018 [facility] Dextrose 5% in Water IV 1,000 mL 1,000 mL, Rate: 60 ml/hr, Infuse over: 16.7 hr, Route: IV, Dosing Weight 56.449 kg, Total Volume: 1,000, Start date: 01/18/18 11:41:00 CDT, Duration: 30 day, Stop date: 02/17/18 11:40:00 CDT, 1.66, m2 No Longer Active 01/18/2018 [facility] Geodon 10 mg, Route: IM, Q6H, Dosing Weight 56.449, kg, Start date: 01/18/18 0:00:00 CDT, Duration: 30 day, Stop date: 02/16/18 18:00:00 CDT No Longer Active 01/18/2018 [facility] Geodon 10 mg, Route: IM, Drug form: PDR/INJ, Q6H, Dosing Weight 56.449, kg, PRN Agitation, Start date: 01/17/18 20:19:00 CDT, Duration: 30 day, Stop date: 02/16/18 20:18:00 CDTNotes: Reconstitute with 1.2 ml of sterile water. Final concentration=20 mg/1ml. Maximum 40 mg/24 hours (Same As: Linda). MEDICATION WASTE Product Size: 20 mg Product Wasted: ___ mg No Longer Active 01/18/2018 [facility] Sodium Chloride 0.9% (titrate) 250 mL 250 mL, Rate: To prime line and flush remaining blood products., Dosing Weight 56.449, kg, Route: IV, Total Volume: 250, Priority: Routine, Start Date: 01/17/18 11:38:00 CDT, Duration: 2 day, Stop date: 01/19/18 11:37:00 CDT, Replace Every: 24 hr No Longer Active 01/17/2018 [facility] calcium acetate 667 MG Oral Tablet 2,001 mg, 3 cap, Route: PO, Drug form: CAP, TID-Meals, Dosing Weight 56.449, kg, Start date: 01/14/18 17:00:00 CDT, Duration: 30 day, Stop date: 02/13/18 12:00:00 CDTNotes: Same as Phoslo Gel Cap No Longer Active 01/14/2018 [facility] Risperidone 0.25 mg, 1 tab, Route: PO, Drug form: TAB, BID, Dosing Weight 56.449, kg, Start date: 01/13/18 9:00:00 CDT, Duration: 30 day, Stop date: 02/11/18 17:00:00 CDTNotes: (Same as: Risperdal) No Longer Active 01/13/2018 [facility] Risperidone 0.5 mg, 1 tab, Route: PO, Drug form: TAB, Q6H, Dosing Weight 56.449, kg, PRN Agitation, Start date: 01/13/18 6:23:00 CDT, Duration: 30 day, Stop date: 02/12/18 6:22:00 CDTNotes: (Same as: Risperdal) No Longer Active 01/13/2018 [facility] Ativan 1 mg, 0.5 mL, Route: IV, Drug form: INJ, ONCE, Dosing Weight 56.449, kg, Priority: Routine, Start date: 01/12/18 21:17:00 CDT, Stop date: 01/12/18 21:17:00 CDTNotes: (Same as: Ativan) Inactive 01/13/2018 [facility] Dextrose 5% in Water IV 1,000 mL 1,000 mL, Rate: 40 ml/hr, Infuse over: 25 hr, Route: IV, Dosing Weight 56.449 kg, Total Volume: 1,000, Start date: 01/12/18 17:07:00 CDT, Duration: 30 day, Stop date: 02/11/18 17:06:00 CDT, 1.66, m2 No Longer Active 01/12/2018 [facility] Hydralazine Hydrochloride 25 MG Oral Tablet 37.5 mg, 1.5 tab, Route: PO, Drug form: TAB, Q8H, Dosing Weight 56.449, kg, Start date: 01/12/18 16:00:00 CDT, Stop date: 02/11/18 8:00:00 CDTNotes: (Same as: Apresoline) May interfere w/enteral feedings Take With Food. No Longer Active 01/12/2018 [facility] Seroquel 25 mg, 1 tab, Route: PO, Drug form: TAB, Q6H, Dosing Weight 56.449, kg, PRN Agitation, Start date: 01/11/18 23:41:00 CDT, Duration: 30 day, Stop date: 02/10/18 23:40:00 CDTNotes: (Same as: SEROquel) No Longer Active 01/12/2018 [facility] Acetaminophen 325 MG / Hydrocodone Bitartrate 10 MG Oral Tablet 1 tab, Route: PO, Drug Form: TAB, Dosing Weight 56.449, kg, Q4H, PRN Pain Score 7-10, Start date: 01/09/18 15:51:00 CDT, Stop date: 02/08/18 15:50:00 CDTNotes: Do not exceed 4gm/day of acetaminophen. (Same as: Lolo 325/10) No Longer Active 01/09/2018 [facility] Acetaminophen 325 MG / Hydrocodone Bitartrate 5 MG Oral Tablet 1 tab, Route: PO, Drug Form: TAB, Dosing Weight 56.449, kg, Q4H, PRN Pain Score 4-6, Start date: 01/09/18 15:51:00 CDT, Stop date: 02/08/18 15:50:00 CDTNotes: (Same as: Lolo 325/5) Do not exceed 4gm/day of acetaminophen. No Longer Active 01/09/2018 [facility] Promethazine 6.25 mg, Route: IVPB, ONCE, Dosing Weight 56.449, kg, PRN Nausea & Vomiting, Start date: 01/09/18 15:11:00 CDT Inactive 01/09/2018 [facility] Ondansetron 4 mg, Route: IVP, ONCE, Dosing Weight 56.449, kg, PRN Nausea & Vomiting, Start date: 01/09/18 15:11:00 CDT Inactive 01/09/2018 [facility] Diphenhydramine 12.5 mg, Route: IVP, Drug form: INJ, Q6H, Dosing Weight 56.449, kg, PRN Itching, Start date: 01/09/18 15:11:00 CDT, Duration: 30 day, Stop date: 02/08/18 15:10:00 CDT Inactive 01/09/2018 [facility] Meperidine 12.5 mg, Route: IVP, Q30Min, Dosing Weight 56.449, kg, PRN Other -See Comment, For shivering, Start date: 01/09/18 15:11:00 CDT, Duration: 2 doses or times, Stop date: Limited # of times Inactive 01/09/2018 [facility] Fentanyl 25 microgram, Route: IVP, Q5Min, Dosing Weight 56.449, kg, PRN Pain Score 4-6, Priority: Routine, Start date: 01/09/18 15:11:00 CDT, Duration: 4 doses or times, Stop date: Limited # of times Inactive 01/09/2018 [facility] Albuterol 0.83 MG/ML Inhalant Solution 2.49 mg, Route: NEB, Q20Min, Dosing Weight 56.449, kg, PRN Wheezing, Priority: STAT, Start date: 01/09/18 15:11:00 CDT, Duration: 30 day, Stop date: 02/08/18 15:10:00 CDT Inactive 01/09/2018 [facility] Naloxone 0.4 mg, Route: IVP, Q2MIN, Dosing Weight 56.449, kg, PRN Narcotic Reversal, Start date: 01/09/18 15:11:00 CDT, Duration: 8 doses or times, Stop date: Limited # of times Inactive 01/09/2018 [facility] Flumazenil 0.2 mg, Route: IVP, PRN, Dosing Weight 56.449, kg, PRN Benzodiazepine Reversal, Initial dose, Start date: 01/09/18 15:11:00 CDT, Duration: 30 day, Stop date: 02/08/18 15:10:00 CDT Inactive 01/09/2018 [facility] Calcium Chloride 0.0014 MEQ/ML / Potassium Chloride 0.004 MEQ/ML / Sodium Chloride 0.103 MEQ/ML / Sodium Lactate 0.028 MEQ/ML Injectable Solution 1,000 mL, Rate: 125 ml/hr, Infuse over: 8 hr, Route: IV, Dosing Weight 56.449 kg, Total Volume: 1,000, Start date: 01/09/18 15:11:00 CDT, Duration: 30 day, Stop date: 02/08/18 15:10:00 CDT, 1.66, m2 Inactive 01/09/2018 [facility] esmolol 10 mg, Route: IVP, Q5Min, Dosing Weight 56.449, kg, PRN Other -See Comment, Start date: 01/09/18 15:11:00 CDT, Duration: 5 doses or times, Stop date: Limited # of times Inactive 01/09/2018 [facility] Hydralazine 10 mg, Route: IVP, Q20Min, Dosing Weight 56.449, kg, PRN Elevated BP, Start date: 01/09/18 15:11:00 CDT, Duration: 2 doses or times, Stop date: Limited # of times Inactive 01/09/2018 [facility] Labetalol 10 mg, Route: IVP, Q5Min, Dosing Weight 56.449, kg, PRN Elevated BP, Start date: 01/09/18 15:11:00 CDT, Duration: 5 doses or times, Stop date: Limited # of times Inactive 01/09/2018 [facility] phenylephrine (ANES) Route: IV, Drug form: INJ, ONCE, Stop date: 01/09/18 14:42:00 CDT Inactive 01/09/2018 [facility] fentaNYL (ANES) Route: IV, Drug form: INJ, ONCE, Stop date: 01/09/18 14:27:00 CDT Inactive 01/09/2018 [facility] propofol (ANES) Route: IV, Drug form: INJ, ONCE, Stop date: 01/09/18 14:27:00 CDT Inactive 01/09/2018 [facility] ePHEDrine (ANES) Route: IV, Drug form: INJ, ONCE, Stop date: 01/09/18 14:27:00 CDT Inactive 01/09/2018 [facility] ceFAZolin (ANES) Route: IV, Drug form: INJ, ONCE, Stop date: 01/09/18 14:27:00 CDT Inactive 01/09/2018 [facility] lidocaine (ANES) Route: IV, Drug form: INJ, ONCE, Stop date: 01/09/18 14:27:00 CDT Inactive 01/09/2018 [facility] midazolam (ANES) Route: IV, Drug form: SOLN, ONCE, Stop date: 01/09/18 14:22:00 CDT Inactive 01/09/2018 [facility] Sodium Chloride 0.9% IV (ANES) 500 mL Route: IV, Total Volume: 500, Start date: 01/09/18 13:36:00 CDT, Stop date: 01/09/18 14:36:00 CDT Inactive 01/09/2018 [facility] Sodium Chloride 0.9% (Bolus) IV 500 mL, Route: IV, ONCE, Dosing Weight 56.449 kg, Start date: 01/09/18 11:50:00 CDT, Stop date: 01/09/18 11:50:00 CDT, Bolus Inactive 01/09/2018 [facility] Amlodipine 10 mg, 2 tab, Route: PO, Drug form: TAB, Daily, Dosing Weight 56.449, kg, Start date: 01/08/18 9:00:00 CDT, Duration: 30 day, Stop date: 02/06/18 9:00:00 CDTNotes: (Same as: Stevensonvasc) No Longer Active 01/08/2018 [facility] colistimethate + Sodium Chloride 0.9% IV 100 mL 85 mg, Route: IVPB, [id number], Start date: 01/07/18 20:00:00 CDT, Duration: 30 day, Stop date: 02/05/18 20:00:00 CDT, ABX Indication: Bone/Joint InfectionNotes: (Same As: Coly-Mycin) No Longer Active 01/08/2018 [facility] Amlodipine 5 mg, 1 tab, Route: PO, Drug form: TAB, ONCE, Dosing Weight 56.449, kg, Start date: 01/07/18 19:08:00 CDT, Stop date: 01/07/18 19:08:00 CDTNotes: (Same as: Harishc) Inactive 01/08/2018 [facility] Benadryl 12.5 mg, 0.5 tab, Route: PO, Drug form: TAB, ONCE, Dosing Weight 56.449, kg, PRN Allergic reaction, Start date: 01/07/18 14:31:00 CDT No Longer Active 01/07/2018 [facility] meropenem + Sodium Chloride 0.9% IV 100 mL 500 mg, Route: IVPB, [id number], Start date: 01/06/18 20:00:00 CDT, Duration: 30 day, Stop date: 02/04/18 21:00:00 CDT, ABX Indication: Bone/Joint InfectionNotes: Same as Merrem MEDICATION WASTE Product Size: 500 mg Product Wasted: ___ mg No Longer Active 01/07/2018 [facility] colistimethate + Sodium Chloride 0.9% IV 100 mL 280 mg, Route: IVPB, ONCE, Start date: 01/06/18 19:30:00 CDT, Stop date: 01/06/18 19:30:00 CDT, ABX Indication: Bone/Joint InfectionNotes: (Same As: Coly-Mycin) Inactive 01/07/2018 [facility] colistimethate 150 mg, Route: IVPB, [id number], Dosing Weight 56.449, kg, Start date: 01/06/18 18:00:00 CDT, Duration: 20 day, Stop date: 01/25/18 18:00:00 CDT, ABX Indication: Bone/Joint Infection Inactive 01/06/2018 [facility] meropenem 1,000 mg, Route: IV, Q24H, Dosing Weight 56.449, kg, Start date: 01/06/18 18:00:00 CDT, Duration: 30 day, Stop date: 02/04/18 18:00:00 CDT, ABX Indication: Bone/Joint Infection Inactive 01/06/2018 [facility] NS 500 mL 500 mL, Rate: 50 ml/hr, Infuse over: 10 hr, Route: IV, Dosing Weight 56.449 kg, Total Volume: 500, Start date: 01/06/18 13:31:00 CDT, Duration: 10 hr, Stop date: 01/06/18 23:30:00 CDT, 1.66, m2 Inactive 01/06/2018 [facility] vancomycin + Sodium Chloride 0.9% IV 100 mL 500 mg, Route: IVPB, Q-M-W-F, Start date: 01/05/18 17:00:00 CDT, Duration: 30 day, Stop date: 02/02/18 17:00:00 CDT, ABX Indication: Bone/Joint InfectionNotes: TIME CRITICAL MEDICATION (Same As: Vancocin) For adult patients only: Round to nearest 250 mg per Medical Staff approval Inactive 01/05/2018 [facility] Restore Hydrogel topical gel 1 appl, Route: TOP, Dosing Weight 56.449, kg, BID, Start date: 01/05/18 17:00:00 CDT, Duration: 30 day, Stop date: 02/04/18 9:00:00 CDT No Longer Active 01/05/2018 [facility] Dextrose 50% Syringe 25 gm, 50 mL, Route: IVP, Drug Form: INJ, Dosing Weight 56.449, kg, PRN, PRN Blood Glucose Results, Start date: 01/04/18 22:03:00 CDT, Duration: 30 day, Stop date: 02/03/18 22:02:00 CDT No Longer Active 01/05/2018 [facility] Glucagon 1 mg, Route: IM, Drug form: PDR/INJ, PRN, Dosing Weight 56.449, kg, PRN Blood Glucose Results, Start date: 01/04/18 22:03:00 CDT, Duration: 30 day, Stop date: 02/03/18 22:02:00 CDT No Longer Active 01/05/2018 [facility] Insulin Lispro 9 unit, 0.09 mL, Route: SUB-Q, Drug form: SOLN, TID-Before Meals, Dosing Weight 56.449, kg, PRN Blood Glucose Results, Start date: 01/04/18 22:03:00 CDT, Duration: 30 day, Stop date: 02/03/18 22:02:0 0 CDTNotes: (Same as: Humalog ) Roll in palms of hands gently; Do not shake `vigorously. "Single Patient Use Only " WASTE: F/P - Black; E - Municipal Trash Bin Stable for 28 days at room temperature. Expires in days from Date No Longer Active 01/05/2018 [facility] Gibson packet 1 pkt, Route: PO, Drug Form: PWDR, Dosing Weight 56.449, kg, BID-Before Meals, Start date: 01/04/18 16:30:00 CDT, Duration: 14 day, Stop date: 01/18/18 7:30:00 CDTNotes: (Same as: [place]) No Longer Active 01/04/2018 [facility] phenylephrine (ANES) Route: IV, Drug form: INJ, ONCE, Stop date: 01/04/18 10:20:00 CDT Inactive 01/04[facility]2018 [facility] [facility] scopolamine (ANES) Route: Transdermal, Drug form: ERFILM, ONCE, Stop date: 01/04/18 10:05:00 CDT Inactive 01/04/2018 [facility] propofol (ANES) Route: IV, Drug form: INJ, ONCE, Stop date: 01/04/18 9:55:00 CDT Inactive 01/04/2018 [facility] fentaNYL (ANES) Route: IV, Drug form: INJ, ONCE, Stop date: 01/04/18 9:55:00 CDT Inactive 01/04/2018 [facility] midazolam (ANES) Route: IV, Drug form: SOLN, ONCE, Stop date: 01/04/18 9:55:00 CDT Inactive 01/04/2018 [facility] NS 500 mL 500 mL, Rate: 25 ml/hr, Infuse over: 20 hr, Route: IV, Dosing Weight 56.449 kg, Total Volume: 500, Start date: 01/04/18 9:36:00 CDT, Duration: 30 day, Stop date: 02/03/18 9:35:00 CDT, 1.66, m2 No Longer Active 01/04/2018 [facility] Sodium Chloride 0.9% IV (ANES) 500 mL Route: IV, Total Volume: 500, Start date: 01/04/18 9:08:00 CDT, Stop date: 01/04/18 10:08:00 CDT Inactive 01/04/2018 [facility] heparin 5,000 unit, 1 mL, Route: SUB-Q, Drug form: INJ, Q8H, Dosing Weight 56.449, kg, Start date: 01/04/18 0:00:00 CDT, Duration: 30 day, Stop date: 02/02/18 16:00:00 CDTNotes: porcine heparin No Longer Active 01/04/2018 [facility] Aspirin 81 MG Enteric Coated Tablet 81 mg, 1 tab, Route: PO, Drug form: ECTAB, Daily, Dosing Weight 56.449, kg, Start date: 01/03/18 17:25:00 CDT, Duration: 30 day, Stop date: 03/04/18 9:00:00 CDTNotes: Do not crush or chew. (Same As: Ecotrin) No Longer Active 01/03/2018 [facility] vancomycin + Dextrose 5% in Water IV 250 mL 750 mg, Route: IVPB, ONCE, Start date: 01/03/18 17:00:00 CDT, Stop date: 01/03/18 17:00:00 CDT, ABX Indication: Bone/Joint InfectionNotes: TIME CRITICAL MEDICATION (Same As: Vancocin) Infusion rate 2001 mg: infuse over 2.5 hours For adult patients only: Round to nearest 250 mg per Medical Staff approval MEDICATION WASTE Product Size: 1000 mg Product Wasted: ___ mg Inactive 01/03/2018 [facility] Zosyn 3.375 gm, Route: IVPB, Drug form: PDR/INJ, [id number], Dosing Weight 56.449, kg, CrCl Inactive 01/03/2018 [facility] Vancomycin 1 ea, Route: MISC, ONCALL, Dosing Weight 56.449, kg, Start date: 01/03/18 13:00:00 CDT, Duration: 30 day, Stop date: 02/02/18 12:59:00 CDT, Pharmacy to dose, ABX Indication: Skin/Soft Tissue Infection Inactive 01/03/2018 [facility] Amlodipine 5 mg, 1 tab, Route: PO, Drug form: TAB, Daily, Dosing Weight 56.449, kg, Start date: 01/03/18 12:30:00 CDT, Duration: 30 day, Stop date: 02/02/18 9:00:00 CDTNotes: (Same as: Norvasc) No Longer Active 01/03/2018 [facility] Lisinopril 40 mg, 2 tab, Route: PO, Drug form: TAB, Daily, Dosing Weight 56.449, kg, Start date: 01/03/18 9:00:00 CDT, Duration: 30 day, Stop date: 03/03/18 9:00:00 CDTNotes: (Same as: Prinivil, Zestril) No Longer Active 01/03/2018 [facility] metoprolol tartrate 25 mg, 1 tab, Route: PO, Drug form: TAB, Q12H, Dosing Weight 56.449, kg, Start date: 01/02/18 21:00:00 CDT, Duration: 30 day, Stop date: 02/01/18 9:00:00 CDTNotes: (Same as: Lopressor) No Longer Active 01/03/2018 [facility] atorvastatin 40 mg, 1 tab, Route: PO, Drug form: TAB, Bedtime, Dosing Weight 56.449, kg, Start date: 01/02/18 21:00:00 CDT, Duration: 30 day, Stop date: 03/02/18 21:00:00 CDTNotes: (Same as: Lipitor) No Longer Active 01/03/2018 [facility] Hydralazine Hydrochloride 50 MG Oral Tablet 50 mg, 1 tab, Route: PO, Drug form: TAB, TID, Dosing Weight 56.449, kg, Start date: 01/02/18 17:26:00 CDT, Duration: 30 day, Stop date: 02/01/18 17:00:00 CDTNotes: (Same as: Apresoline) May interfere w/enteral feedings Take With Food No Longer Active 01/02/2018 [facility] Insulin Lispro 3 unit, 0.03 mL, Route: SUB-Q, Drug form: SOLN, Bedtime, Dosing Weight 56.449, kg, PRN Blood Glucose Results, Start date: 01/02/18 17:10:00 CDT, Duration: 30 day, Stop date: 03/03/18 17:09:00 CDTNotes: (Same as: Humalog ) Roll in palms of hands gently; Do not shake `vigorously. "Single Patient Use Only " WASTE: F/P - Black; E - [facility]ash [facility] Stable for 28 days at room temperature. Expires in days from Date No Longer Active 01/02/2018 [facility] Dextrose 50% Syringe 12.5 gm, 25 mL, Route: IVP, Drug Form: INJ, Dosing Weight 56.449, kg, PRN, PRN Blood Glucose Results, Start date: 01/02/18 17:10:00 CDT, Duration: 30 day, Stop date: 02/01/18 17:09:00 CDT No Longer Active 01/02/2018 [facility] Glucagon 1 mg, Route: IM, Drug form: PDR/INJ, PRN, Dosing Weight 56.449, kg, PRN Blood Glucose Results, Start date: 01/02/18 17:10:00 CDT, Duration: 30 day, Stop date: 02/01/18 17:09:00 CDT No Longer Active 01/02/2018 [facility] Acetaminophen 650 mg, 2 tab, Route: PO, Drug form: TAB, Q4H, Dosing Weight 59.659, kg, PRN Pain 1-3/Temp > 100.4 F, Start date: 01/02/18 4:25:00 CDT, Duration: 30 day, Stop date: 03/03/18 4:24:00 CDTNotes: Do not exceed 4 gm/day. (Same as: Tylenol) No Longer Active 01/02/2018 [facility] Ondansetron 4 mg, 1 tab, Route: PO, Drug form: TAB, Q6H, Dosing Weight 59.659, kg, PRN Nausea & Vomiting, Start date: 01/02/18 4:25:00 CDT, Duration: 30 day, Stop date: 03/03/18 4:24:00 CDTNotes: (Same as: Zofran) No Longer Active 01/02/2018 [facility] Meclizine 50 mg, 2 tab, Route: PO, Drug form: TAB, ONCE, Dosing Weight 59.659, kg, Priority: STAT, Start date: 01/02/18 2:18:00 CDT, Stop date: 01/02/18 2:18:00 CDTNotes: (Same as: Antivert) Inactive 01/02/2018 [facility] Saline Flush 0.9% 10 mL, Route: IVP, Drug Form: INJ, Dosing Weight 59.659, kg, PRN, PRN Line Flush, Start date: 01/02/18 1:37:00 CDT, Duration: 30 day, Stop date: 02/01/18 1:36:00 CDTNotes: (Same as: BD Posiflush) Inactive 01/02/2018 [facility] NS (Bolus) IV 500 mL, 500 ml/hr, Infuse Over: 1 hr, Route: IV, 500, Drug form: INJ, ONCE, Priority: STAT, Dosing Weight 59.659 kg, Start date: 01/02/18 1:34:00 CDT, Stop date: 01/02/18 1:34:00 CDT Inactive 01/02/2018 [facility] Saline Flush 0.9% 10 mL, Route: IVP, Drug Form: INJ, Dosing Weight 59.659, kg, PRN, PRN Line Flush, Start date: 01/02/18 1:33:00 CDT, Duration: 30 day, Stop date: 02/01/18 1:32:00 CDTNotes: (Same as: BD Posiflush) Inactive 01/02/2018 [facility] Hydralazine Hydrochloride 50 MG Oral Tablet 50 mg=1 tab, PO, TID, Hold if SBP is less than 110 mmhg, # 90 tab, 3 Refill(s), [id number]2017 [facility] metoprolol tartrate 25 mg oral tablet 25 mg=1 tab, PO, BID, # 60 tab, 0 Refill(s), [id number] 12/21/2017 [facility] lisinopril 20 mg oral tablet 20 mg=1 tab, PO, Daily, # 30 tab, 0 Refill(s), [id number] 12/21/2017 [facility] Levofloxacin 500 MG Oral Tablet [Levaquin] 500 mg=1 tab, PO, Q48H, X 14 day, # 7 tab, 0 Refill(s), [id number] 12[facility]21/2017 [facility] Metronidazole 500 MG Oral Tablet 500 mg=1 tab, PO, ABXQ8H, X 14 day, # 42 tab, 0 Refill(s), [id number] 12/21/2017 [facility] Cathflo Activase 2 mg injection 2 mg, 2 mL, Route: INJ, Drug form: INJ, ONCE, Dosing Weight 59.659, kg, Start date: 12/21/17 9:30:00 CDT, Stop date: 12/21/17 9:30:00 CDT, Occluded CVAD >/=7 FrenchNotes: "Syringe for catheter clearance or interventional radiology use. Reconstitute each vial of Cathflo Activase with 2.2 ml Sterile Water resulting in a 1 mg/ml solution. (Same as: Activase) MEDICATION WASTE Product Size: 2 mg Product Wasted: ___ mg Inactive 12/21/2017 [facility] Cathflo Activase 2 mg injection 2 mg, 2 mL, Route: DIALYSIS, Drug form: INJ, ONCE, Dosing Weight 59.659, kg, Start date: 12/21/17 9:23:00 CDT, Stop date: 12/21/17 9:23:00 CDTNotes: "Syringe for catheter clearance or interventional radiology use. Reconstitute each vial of Cathflo Activase with 2.2 ml Sterile Water resulting in a 1 mg/ml solution. (Same as: Activase) MEDICATION WASTE Product Size: 2 mg Product Wasted: ___ mg Inactive 12/21/2017 [facility] vancomycin + Sodium Chloride 0.9% IV 250 mL 1,000 mg, Route: IVPB, Q-, Start date: 12/19/17 17:00:00 CDT, Duration: 30 day, Stop date: 01/16/18 17:00:00 CDT, ABX Indication: Skin/Soft Tissue InfectionNotes: TIME CRITICAL MEDICATION (Same As: Vancocin) Infusion rate 2001 mg: infuse over 2.5 hours For adult patients only: Round to nearest 250 mg per Medical Staff approval MEDICATION WASTE Product Size: 1000 mg Product Wasted: ___ mg Inactive 12/19/2017 [facility] Gibson packet 1 pkt, Route: PO, Drug Form: PWDR, Dosing Weight 59.659, kg, BID-Before Meals, Start date: 12/19/17 16:30:00 CDT, Duration: 14 day, Stop date: 01/02/18 7:30:00 CDTNotes: (Same as: Gibson Floyd) No Longer Active 12/19/2017 [facility] Flagyl 500 mg, 1 tab, Route: PO, Drug form: TAB, ABXQ8H, Dosing Weight 59.659, kg, Start date: 12/19/17 15:00:00 CDT, Duration: 14 day, Stop date: 01/02/18 7:00:00 CDT, ABX Indication: Skin/Soft Tissue Infecti onNotes: (Same as: Flagyl) Take with food/ avoid alcohol No Longer Active 12/19/2017 [facility] Glucagon 1 mg, Route: IM, PRN, Dosing Weight 59.659, kg, PRN Blood Glucose Results, Start date: 12/18/17 21:14:00 CDT, Duration: 30 day, Stop date: 01/17/18 21:13:00 CDT Inactive 12/19/2017 [facility] Dextrose 50% Syringe 50 mL, Route: IVP, Dosing Weight 59.659, kg, PRN, PRN Blood Glucose Results, Start date: 12/18/17 21:14:00 CDT, Duration: 30 day, Stop date: 01/17/18 21:13:00 CDT Inactive 12/19/2017 [facility] Insulin Lispro 4 unit, 0.04 mL, Route: SUB-Q, Drug form: SOLN, Bedtime, Dosing Weight 59.659, kg, PRN Blood Glucose Results, Start date: 12/18/17 21:14:00 CDT, Duration: 30 day, Stop date: 01/17/18 21:13:00 CDTNotes: (Same as: Humalog ) Roll in palms of hands gently; Do not shake `vigorously. "Single Patient Use Only " WASTE: F/P - Black; E - [facility] Trash Bin Stable for 28 days at room temperature. Expires in days from Date No Longer Active 12/19/2017 [facility] ondansetron (ANES) Route: IV, Drug form: INJ, ONCE, Stop date: 12/18/17 15:56:00 CDT Inactive 12/18/2017 [facility] midazolam (ANES) Route: IV, Drug form: SOLN, ONCE, Stop date: 12/18/17 15:56:00 CDT Inactive 12/18/2017 [facility] lidocaine (ANES) Route: IV, Drug form: INJ, ONCE, Stop date: 12/18/17 15:56:00 CDT Inactive 12/18/2017 [facility] fentaNYL (ANES) Route: IV, Drug form: INJ, ONCE, Stop date: 12/18/17 15:56:00 CDT Inactive 12/18/2017 [facility] propofol (ANES) Route: IV, Drug form: INJ, ONCE, Stop date: 12/18/17 15:56:00 CDT Inactive 12/18/2017 [facility] sodium chloride (ANES) 10 mL Route: IV, Drug Form: INJ, Start date: 12/18/17 15:06:00 CDT, Stop date: 12/18/17 16:06:00 CDT Inactive 12/18/2017 [facility] Albuterol 0.833 MG/ML / Ipratropium [place] 0.167 MG/ML Inhalant Solution 3 mL, Route: NEB, Dosing Weight 59.659, kg, ONCE, STAT, Start date: 12/18/17 15:06:00 CDT, Stop date: 12/18/17 15:06:00 CDT Inactive 12/18/2017 [facility] Sodium Chloride 0.9% IV 500 mL 500 mL, Rate: 25 ml/hr, Infuse over: 20 hr, Route: IV, Dosing Weight 59.659 kg, Total Volume: 500, Start date: 12/18/17 15:06:00 CDT, Duration: 30 day, Stop date: 01/17/18 15:05:00 CDT, 1.72, m2 Inactive 12/18/2017 [facility] vancomycin + Dextrose 5% in Water IV 250 mL 750 mg, Route: IVPB, Q--Sa, Start date: 12/16/17 17:00:00 CDT, Duration: 30 day, Stop date: 01/13/18 17:00:00 CDT, ABX Indication: Bone/Joint InfectionNotes: TIME CRITICAL MEDICATION (Same As: Vancocin) Infusion rate 2001 mg: infuse over 2.5 hours For adult patients only: Round to nearest 250 mg per Medical Staff approval MEDICATION WASTE Product Size: 1000 mg Product Wasted: ___ mg No Longer Active 12/16/2017 [facility] Ondansetron 4 mg, Route: IVP, ONCE, Dosing Weight 59.659, kg, PRN Nausea & Vomiting, Start date: 12/15/17 11:50:00 CDT Inactive 12/15/2017 [facility] Naloxone 0.4 mg, Route: IVP, Q2MIN, Dosing Weight 59.659, kg, PRN Narcotic Reversal, Start date: 12/15/17 11:50:00 CDT, Duration: 8 doses or times, Stop date: Limited # of times Inactive 12/15/2017 [facility] Oxycodone 5 mg, Route: PO, Drug form: TAB, Q4H, Dosing Weight 59.659, kg, PRN Pain Score 4-6, Start date: 12/15/17 11:50:00 CDT, Duration: 30 day, Stop date: 01/14/18 11:49:00 CDT Inactive 12/15/2017 [facility] Metoprolol 1 mg, Route: IVP, Q5Min, Dosing Weight 59.659, kg, PRN Other -See Comment, Start date: 12/15/17 11:50:00 CDT, Duration: 5 doses or times, Stop date: Limited # of times Inactive 12/15/2017 [facility] Flumazenil 0.2 mg, Route: IVP, PRN, Dosing Weight 59.659, kg, PRN Benzodiazepine Reversal, Initial dose, Start date: 12/15/17 11:50:00 CDT, Duration: 30 day, Stop date: 01/14/18 11:49:00 CDT Inactive 12/15/2017 [facility] Fentanyl 25 microgram, Route: IVP, Q5Min, Dosing Weight 59.659, kg, PRN Pain Score 4-6, Priority: Routine, Start date: 12/15/17 11:50:00 CDT, Duration: 4 doses or times, Stop date: Limited # of times Inactive 12/15/2017 [facility] protamine (ANES) Route: IV, Drug form: INJ, ONCE, Stop date: 12/15/17 11:36:00 CDT Inactive 12/15/2017 [facility] normal saline 0.9% IV 1,000 mL 1,000 mL, Rate: 100 ml/hr, Infuse over: 10 hr, Route: IV, Dosing Weight 59.659 kg, Total Volume: 1,000, Start date: 12/15/17 11:31:00 CDT, Duration: 30 day, Stop date: 01/14/18 11:30:00 CDT, 1.72, m2 No Longer Active 12/15/2017 [facility] Hydromorphone 2 mg, 1 tab, Route: PO, Drug form: TAB, Q4H, Dosing Weight 59.659, kg, PRN Pain Score 7-10, Start date: 12/15/17 11:31:00 CDT, Stop date: 01/14/18 11:30:00 CDTNotes: (Same as: Dilaudid) No Longer Active 12/15/2017 [facility] Acetaminophen 325 MG / Hydrocodone Bitartrate 5 MG Oral Tablet 1 tab, Route: PO, Drug Form: TAB, Dosing Weight 59.659, kg, Q4H, PRN Pain Score 4-6, Start date: 12/15/17 11:31:00 CDT, Duration: 30 day, Stop date: 01/14/18 11:30:00 CDTNotes: (Same as: Lolo 325/5) Do not exceed 4gm/day of acetaminophen. No Longer Active 12/15/2017 [facility] Acetaminophen 325 MG / Hydrocodone Bitartrate 10 MG Oral Tablet 2 tab, Route: PO, Drug Form: TAB, Dosing Weight 59.659, kg, Q4H, PRN Pain Score 7-10, Start date: 12/15/17 11:31:00 CDT, Duration: 30 day, Stop date: 01/14/18 11:30:00 CDTNotes: Do not exceed 4gm/day of acetaminophen. (Same as: Lolo 325/10) No Longer Active 12/15/2017 [facility] Calcium Chloride 0.0014 MEQ/ML / Potassium Chloride 0.004 MEQ/ML / Sodium Chloride 0.103 MEQ/ML / Sodium Lactate 0.028 MEQ/ML Injectable Solution 1,000 mL, Rate: 100 ml/hr, Infuse over: 10 hr, Route: IV, Dosing Weight 59.659 kg, Total Volume: 1,000, Start date: 12/15/17 11:31:00 CDT, Duration: 30 day, Stop date: 01/14/18 11:30:00 CDT, 1.72, m2 No Longer Active 12/15/2017 [facility] ondansetron (ANES) Route: IV, Drug form: INJ, ONCE, Stop date: 12/15/17 11:30:00 CDT Inactive 12/15/2017 [facility] metoclopramide (ANES) Route: IV, Drug form: INJ, ONCE, Stop date: 12/15/17 11:25:00 CDT Inactive 12/15/2017 [facility] midazolam (ANES) Route: IV, Drug form: SOLN, ONCE, Stop date: 12/15/17 11:25:00 CDT Inactive 12/15/2017 [facility] fentaNYL (ANES) Route: IV, Drug form: INJ, ONCE, Stop date: 12/15/17 11:25:00 CDT Inactive 12/15/2017 [facility] 72 HR Scopolamine 0.0139 MG/HR Transdermal Patch 1 patch, Route: TOP, Drug Form: ERFILM, Dosing Weight 59.659, kg, ONCE, Start date: 12/15/17 11:01:00 CDT, Stop date: 12/15/17 11:01:00 CDT Inactive 12/15/2017 [facility] Sodium Chloride 0.9% IV 500 mL 500 mL, Rate: 25 ml/hr, Infuse over: 20 hr, Route: IV, Dosing Weight 59.659 kg, Total Volume: 500, Start date: 12/15/17 10:46:00 CDT, Duration: 1 day, Stop date: 12/16/17 10:45:00 CDT, 1.72, m2 No Longer Active 12/15/2017 [facility] Sodium Chloride 0.9% IV (ANES) 500 mL Route: IV, Total Volume: 500, Start date: 12/15/17 10:40:00 CDT, Stop date: 12/15/17 11:40:00 CDT Inactive 12/15/2017 [facility] cadexomer iodine 0.009 MG/MG Topical Gel [Iodosorb] 1 appl, Route: TOP, Daily, Drug form: GEL, Start date: 12/14/17 9:00:00 CDT, Duration: 30 day, Stop date: 01/12/18 9:00:00 CDTNotes: Same as; Iodosorb FOR EXTERNAL USE ONLY Non-Formulary Drug No Longer Active 12/14/2017 [facility] Sodium Chloride 0.9% (titrate) 250 mL 250 mL, Rate: To prime line and flush remaining blood products., Dosing Weight 59.659, kg, Route: IV, Total Volume: 250, Priority: Routine, Start Date: 12/14/17 7:13:00 CDT, Duration: 1 day, Stop date: 12/15/17 7:12:00 CDT, Replace Every: 24 hr No Longer Active 12/14/2017 [facility] cefepime 1 gm, Route: IVPB, [id number], Dosing Weight 59.659, kg, (CrCl 10 - 29 ml/min), Start date: 12/13/17 23:00:00 CDT, Duration: 10 day, Stop date: 12/22/17 23:00:00 CDT, ABX Indication: Bone/Joint InfectionNotes: (Same As: Maxipime) MEDICATION WASTE Product Size: 1000 mg Product Wasted: ___ mg No Longer Active 12/14/2017 [facility] Clindamycin 900 mg, 50 mL, Route: IVPB, Drug form: INJ, [id number], Dosing Weight 59.659, kg, Start date: 12/13/17 23:00:00 CDT, Duration: 14 day, Stop date: 12/27/17 12:00:00 CDT, ABX Indication: Skin/Soft Tissue I nfection No Longer Active 12/14/2017 [facility] Maxipime + sterile water 10 mL 1 gm, Route: IV, ONCE, Start date: 12/13/17 22:21:00 CDT, Stop date: 12/13/17 22:21:00 CDT, ABX Indication: Bone/Joint InfectionNotes: (Same As: Maxipime) MEDICATION WASTE Product Size: 1000 mg Product Wasted: ___ mg No Longer Active 12/14/2017 [facility] vancomycin + Sodium Chloride 0.9% IV 100 mL 500 mg, Route: IVPB, Q-, Start date: 12/13/17 17:00:00 CDT, Stop date: 01/11/18 17:00:00 CDT, ABX Indication: Skin/Soft Tissue InfectionNotes: TIME CRITICAL MEDICATION (Same As: Vancocin) For adult patients only: Round to nearest 250 mg per Medical Staff approval No Longer Active 12/13/2017 [facility] Epogen 10,000 unit, 1 mL, Route: IV, Drug form: INJ, Q-Sa, Dosing Weight 59.659, kg, Start date: 12/13/17 17:00:00 CDT, Stop date: 01/11/18 17:00:00 CDTNotes: (Same as: Procrit) epoetin ruddy 95551 unit/1 ml VL. For dialysis use only. (Procrit) WASTE: F/P - Red; E -Red MEDICATION WASTE Product Size: 20453 unit Product Wasted: ___ unit No Longer Active 12/13/2017 [facility] Lisinopril 20 mg, 1 tab, Route: PO, Drug form: TAB, Daily, Dosing Weight 61.364, kg, Start date: 12/13/17 9:00:00 CDT, Duration: 30 day, Stop date: 01/11/18 9:00:00 CDTNotes: (Same as: Prinivil, Zestril) No Longer Active 12/13/2017 [facility] Zosyn 3.375 gm, Route: IVPB, [id number], Dosing Weight 61.364, kg, CrCl Notes: (Same as: Zosyn) Dosing based on Piperacillin component MEDICATION WASTE Product Size: 3375 mg Product Wasted: ___ mg Inactive 12/13/2017 [facility] heparin 5,000 unit, 1 mL, Route: SUB-Q, Drug form: INJ, Q8H, Dosing Weight 61.364, kg, Start date: 12/13/17 0:00:00 CDT, Duration: 30 day, Stop date: 01/11/18 16:00:00 CDTNotes: porcine heparin No Longer Active 12/13/2017 [facility] Vancomycin 1 ea, Route: MISC, ONCALL, Dosing Weight 61.364, kg, Start date: 12/12/17 23:00:00 CDT, Duration: 7 day, Stop date: 12/19/17 22:59:00 CDT, Pharmacy to dose, ABX Indication: Skin/Soft Tissue Infection Inactive 12/13/2017 [facility] vancomycin + Dextrose 5% in Water IV 250 mL 750 mg, Route: IVPB, ONCE, Start date: 12/12/17 23:00:00 CDT, Stop date: 12/12/17 23:00:00 CDT, ABX Indication: Skin/Soft Tissue InfectionNotes: TIME CRITICAL MEDICATION (Same As: Vancocin) Infusion rate 2001 mg: infuse over 2.5 hours For adult patients only: Round to nearest 250 mg per Medical Staff approval MEDICATION WASTE Product Size: 1000 mg Product Wasted: ___ mg No Longer Active 12/13/2017 [facility] Insulin Lispro 4 unit, 0.04 mL, Route: SUB-Q, Drug form: SOLN, TID-Before Meals, Dosing Weight 61.364, kg, PRN Blood Glucose Results, Start date: 12/12/17 22:10:00 CDT, Duration: 30 day, Stop date: 01/11/18 22:09:0 0 CDTNotes: (Same as: Humalog ) Roll in palms of hands gently; Do not shake `vigorously. "Single Patient Use Only " WASTE: F/P - Black; E - [facility] Trash Bin Stable for 28 days at room temperature. Expires in days from Date No Longer Active 12/13/2017 [facility] Glucagon 1 mg, Route: IM, Drug form: PDR/INJ, PRN, Dosing Weight 61.364, kg, PRN Blood Glucose Results, Start date: 12/12/17 22:10:00 CDT, Duration: 30 day, Stop date: 01/11/18 22:09:00 CDT No Longer Active 12/13/2017 [facility] Dextrose 50% Syringe 12.5 gm, 25 mL, Route: IVP, Drug Form: INJ, Dosing Weight 61.364, kg, PRN, PRN Blood Glucose Results, Start date: 12/12/17 22:10:00 CDT, Duration: 30 day, Stop date: 01/11/18 22:09:00 CDT No Longer Active 12/13/2017 [facility] metoprolol tartrate 25 mg, 1 tab, Route: PO, Drug form: TAB, Q12H, Dosing Weight 61.364, kg, Priority: NOW, Start date: 12/12/17 22:08:00 CDT, Duration: 30 day, Stop date: 01/11/18 21:00:00 CDTNotes: (Same as: Lopressor) No Longer Active 12/13/2017 [facility] Vasotec 2.5 mg, 2 mL, Route: IVP, Drug form: INJ, Q6H, Dosing Weight 61.364, kg, PRN Hypertension, Start date: 12/12/17 22:07:00 CDT, Duration: 30 day, Stop date: 01/11/18 22:06:00 CDTNotes: (Same as: Vasotec-IV) No Longer Active 12/13/2017 [facility] Hydralazine 10 mg, 0.5 mL, Route: IV, Drug form: INJ, Q4H, Dosing Weight 61.364, kg, PRN Hypertension, Start date: 12/12/17 22:07:00 CDT, Duration: 30 day, Stop date: 01/11/18 22:06:00 CDTNotes: (Same as: Apresoline) Push over 5 minutes No Longer Active 12/13/2017 [facility] mannitol 25% intravenous solution 12.5 gm, 50 mL, Route: IV, Drug form: INJ, ONCALL, Start date: 12/12/17 22:00:00 CDT, Duration: 12 hr, Stop date: 12/13/17 9:59:00 CDTNotes: (Same as: Osmitrol) Infuse through 5 micron or smaller filter WASTE: F/P - Sink; E - [facility] Trash Bin Inactive 12/13/2017 [facility] Mannitol 25 gm, Route: IVPB, ONCE, Dosing Weight 61.364, kg, Start date: 12/12/17 21:18:00 CDT, Stop date: 12/12/17 21:18:00 CDT Inactive 12/13/2017 [facility] Dextrose 50% Syringe 25 gm, 50 mL, Route: IVP, Drug Form: INJ, Dosing Weight 61.364, kg, ONCE, STAT, Start date: 12/12/17 19:06:00 CDT, Stop date: 12/12/17 19:06:00 CDT Inactive 12/13/2017 [facility] Insulin regular 5 unit, 0.05 mL, Route: IVP, Drug form: INJ, ONCE, Dosing Weight 61.364, kg, Priority: STAT, Start date: 12/12/17 19:06:00 CDT, Stop date: 12/12/17 19:06:00 CDTNotes: (Same as: Humulin R and NovoLIN R) WASTE: F/P - Black; E - Municipal Trash Bin (Do not shake) Inactive 12/13/2017 [facility] Calcium Gluconate 1 gm, 10 mL, Route: IVPB, ONCE, Dosing Weight 61.364, kg, Priority: STAT, Start date: 12/12/17 19:06:00 CDT, Stop date: 12/12/17 19:06:00 CDTNotes: WASTE: F/P - Sink; E - [facility] Trash Bin Inactive 12/13/2017 [facility] Furosemide 40 mg, 4 mL, Route: IVP, Drug form: INJ, ONCE, Dosing Weight 61.364, kg, Priority: STAT, Start date: 12/12/17 19:06:00 CDT, Stop date: 12/12/17 19:06:00 CDTNotes: (Same as: Lasix) MEDICATION WASTE Product Size: 40 mg Product Wasted: ___ mg Inactive 12/13/2017 [facility] Albuterol 0.83 MG/ML Inhalant Solution 20 mg, Route: NEB, ONCE, Dosing Weight 61.364, kg, Priority: STAT, Start date: 12/12/17 19:06:00 CDT, Stop date: 12/12/17 19:06:00 CDT Inactive 12/13/2017 [facility] Sodium Bicarbonate 50 mEq, 50 mL, Route: IVP, Drug form: INJ, ONCE, Dosing Weight 61.364, kg, Priority: STAT, Start date: 12/12/17 19:06:00 CDT, Stop date: 12/12/17 19:06:00 CDTNotes: (sodium bicarb 8.4% (1 mEq/ml) 50 ml syringe) Inactive 12/13/2017 [facility] Sodium polystyrene sulfonate 15 gm, 60 mL, Route: PO, Drug form: SUSP, ONCE, Dosing Weight 61.364, kg, Priority: STAT, Start date: 12/12/17 19:06:00 CDT, Stop date: 12/12/17 19:06:00 CDTNotes: (sodium polystyrene sulfonate 15 gm/60 ml JUSTIN) Shake well before use. (Same as: Kayexalate, SPS) Inactive 12/13/2017 [facility] Saline Flush 0.9% 10 mL, Route: IVP, Drug Form: INJ, Dosing Weight 61.364, kg, PRN, PRN Line Flush, Start date: 12/12/17 19:06:00 CDT, Duration: 30 day, Stop date: 01/11/18 19:05:00 CDTNotes: (Same as: BD Posiflush) No Longer Active 12/13/2017 [facility] Zosyn 3.375 gm, Route: IVPB, ONCE, Dosing Weight 61.364, kg, Priority: STAT, Start date: 12/12/17 18:46:00 CDT, Stop date: 12/12/17 18:46:00 CDT, ABX Indication: Skin/Soft Tissue InfectionNotes: (Same as: Zosyn) Dosing based on Piperacillin component MEDICATION WASTE Product Size: 3375 mg Product Wasted: ___ mg Inactive 12/12/2017 [facility] Vancomycin 1,000 mg, Route: IVPB, ONCE, Dosing Weight 61.364, kg, Priority: STAT, Start date: 12/12/17 18:46:00 CDT, Stop date: 12/12/17 18:46:00 CDT, ABX Indication: Skin/Soft Tissue InfectionNotes: TIME CRITICAL MEDICATION (Same As: Vancocin) Infusion rate 2001 mg: infuse over 2.5 hours For adult patients only: Round to nearest 250 mg per Medical Staff approval MEDICATION WASTE Product Size: 1000 mg Product Wasted: ___ mg Inactive 12/12/2017 [facility] Hydralazine 20 mg, 1 mL, Route: IVP, Drug form: INJ, ONCE, Dosing Weight 61.364, kg, Priority: STAT, Start date: 12/12/17 18:46:00 CDT, Stop date: 12/12/17 18:46:00 CDTNotes: (Same as: Apresoline) Push over 5 minutes Inactive 12/12/2017 [facility] Nifediac CC Tablet Extended Release 24 Hour 60 MG Give 1 tablet by mouth one time a day for htn hold for sbp less than 110 and or HR less than 60 Oral Active 11/25/2017 [facility] Iron Tablet 325 (65 Fe) MG Give 1 tablet by mouth one time a day for anemia Oral Active 11/25/2017 [facility] Losartan Potassium Tablet 50 MG Give 1 tablet by mouth one time a day for htn hold for SBP less than 110 and or HR less than 60 Oral Active 11/25/2017 [facility] Aspirin Tablet 81 MG Give 1 tablet by mouth one time a day for afib Oral Active 11/25/2017 [facility] Plavix Tablet 75 MG Give 1 tablet by mouth one time a day for afib Oral Active 11/25/2017 [facility] Pepcid Tablet 20 MG Give 1 tablet by mouth one time a day for gerd Oral Active 11/25/2017 [facility] Lasix Tablet 40 MG Give 1 tablet by mouth two times a day for edema Oral Active 11/25/2017 [facility] Levemir FlexPen Solution Pen-injector 100 UNIT/ML Inject 10 unit subcutaneously two times a day for dm Subcutaneous Active 11/25/2017 [facility] Atorvastatin Calcium Tablet 40 MG Give 1 tablet by mouth at bedtime for hld Oral Active 11/25/2017 [facility] Coreg Tablet 12.5 MG Give 1 tablet by mouth every 12 hours for htn hold for SBP less than 110 and or HR less than 60 Oral Active 11/25/2017 [facility] Zyvox Tablet 600 MG Give 1 tablet by mouth every 12 hours for gangrene Oral Active 11/25/2017 [facility] HydrALAZINE HCl Tablet 25 MG Give 1 tablet by mouth every 6 hours for htn Hold for SBP less than 110 and or HR less than 60 Oral Active 11/24/2017 [facility] Magnesium Oxide Tablet 400 MG Give 1 tablet by mouth two times a day for supplement Oral Active 11/24/2017 [facility] LORazepam Tablet 0.5 MG Give 1 tablet by mouth two times a day for anxiety hold for sedation Oral Active 11/24/2017 [facility] Sevelamer HCl Tablet 800 MG Give 1 tablet by mouth three times a day for supplement Oral Active 11/24/2017 [facility] Heparin Sodium (Porcine) Solution 5000 UNIT/ML Inject 1 ml subcutaneously every 8 hours for prophylactic Injection Active 11/24/2017 [facility] NovoLOG Mix 70/30 FlexPen Suspension Pen-injector (70-30) 100 UNIT/ML Inject as per sliding scale: if 200 - 250=2 unit; 251 - 300=4 unit; 301 - 350=6 unit; 351 - 400=8 unit, subcutaneously four times a day for dm Subcutaneous Active 11/24/2017 [facility] CloNIDine HCl Tablet 0.1 MG Give 1 tablet by mouth every 6 hours as needed for htn Give for SBP greater than 160 Oral Active 11/24/2017 [facility] Lolo Tablet 10-325 MG Give 1 tablet by mouth every 6 hours as needed for pain Oral Active 11/24/2017 [facility] Vancomycin HCl Solution Use 750 mg intravenously one time a day every Mon, Wed, Fri for sepsis until 10/09/2017 23:59 Give MWF, check trough after third dose Intravenous Active 10/06/2017 [facility] Levemir FlexPen Solution Pen-injector 100 UNIT/ML Inject 8 unit subcutaneously every 12 hours for DM Subcutaneous Active 10/03/2017 [facility] Aspirin EC Tablet Delayed Release 81 MG Give 1 tablet by mouth one time a day for Preventative Oral Active 09/29/2017 [facility] Vancomycin HCl Solution Use 750 mg intravenously one time a day every Mon, Wed, Fri for sepsis for 8 Days Give MWF, check trough after third dose Intravenous Active 09/29/2017 [facility] Polyethylene Glycol 3350 Kit Give 17 gram by mouth one time a day for constipation Oral Active 09/28/2017 [facility] Famotidine Tablet 20 MG Give 1 tablet by mouth one time a day for GERD Oral Active 09/28/2017 [facility] Amiodarone HCl Tablet 400 MG Give 1 tablet by mouth one time a day for afib Oral Active 09/28/2017 [facility] Furosemide Tablet 20 MG Give 1 tablet by mouth one time a day for CHF Oral Active 09/28/2017 [facility] Ferrous Sulfate Tablet 325 (65 Fe) MG Give 1 tablet by mouth one time a day for supplement Oral Active 09/28/2017 [facility] Aspirin Tablet 81 MG Give 1 tablet by mouth one time a day for prophylactic DE Oral Inactive 09/28/2017 [facility] Cadexomer Iodine Gel 0.9 % Apply to Bilateral feet topically one time a day for wounds External Active 09/28/2017 [facility] Silver Sulfadiazine Cream 1 % Apply to bilat feet topically one time a day for wounds External Active 09/28/2017 [facility] Sevelamer HCl Tablet 800 MG Give 1 tablet by mouth three times a day for dialysis give with meals Oral Active 09/28/2017 [facility] HydrALAZINE HCl Tablet 50 MG Give 1 tablet by mouth every 8 hours for HTN Hold if SBP is less than 110 and HR less than 60 Oral Active 09/28/2017 [facility] Senna-Docusate Sodium Tablet 8.6-50 MG Give 1 tablet by mouth at bedtime for constipation Oral Active 09/28/2017 [facility] NovoLOG FlexPen Solution Pen-injector 100 UNIT/ML Inject as per sliding scale: if 70 - 150=0 units s/q; 151 - 200=2 units s/q; 201 - 250=4 units s/q; 251 - 300=6 units s/q; 301 - 350=8 units s/q; 351 - 400=10 units s/q; 401 - 450=12 units s/q and call M.D., subcutaneously before meals and at bedtime for DM Subcutaneous Active 09/28/2017 [facility] Atorvastatin Calcium Tablet 40 MG Give 1 tablet by mouth at bedtime for HLD Oral Active 09/28/2017 [facility] Nifedical XL Tablet Extended Release 24 Hour 30 MG Give 1 tablet by mouth every 12 hours for HTN Hold if SBP is less than 110 and HR less than 60 Oral Active 09/28/2017 [facility] Carvedilol Tablet 12.5 MG Give 1 tablet by mouth every 12 hours for HTN Hold if SBP is less than 110 and HR less than 60 Oral Active 09/28/2017 [facility] Levemir FlexPen Solution Pen-injector 100 UNIT/ML Inject 6 unit subcutaneously every 12 hours for DM Subcutaneous Active 09/28/2017 [facility] Heparin Sodium (Porcine) Solution 5000 UNIT/ML Inject 1 ml subcutaneously every 12 hours for blood thinner for 7 Days Injection Active 09/28/2017 [facility] Piperacillin Sod-Tazobactam So Solution Reconstituted 3.375 (3-0.375) GM Use 1 vial intravenously every 12 hours for sepsis for 8 Days Intravenous Active 09/28/2017 [facility] Blood-Glucose Meter Precision Xtra Glucometer Use as directed.. Active 07/12/2017 [facility] Blood Sugar Diagnostic Strips Precision Xtra Test Strips Use 2 times weekly (once per day on Mon,Thurs) to test blood sugar. Active 07/12/2017 [facility] Lancets 28 Gauge Use 2 times weekly as directed. Active 07/12/2017 [facility] Aspirin 81 Mg Chewable Tablet Chew and swallow 1 tablet by mouth daily. Active 07/12/2017 [facility] Atorvastatin 40 Mg Tablet Take 2 tablets by mouth at bedtime nightly. Oral Active 07/12/2017 [facility] Hydralazine 25 Mg Tablet Take 1 tablet by mouth 3 times daily. Oral Active 07/12/2017 [facility] Tamsulosin 0.4 Mg Capsule Take 1 capsule by mouth daily for 30 days. Oral No Longer Active 07/12/2017 [facility] Isosorbide Mononitrate Er 30 Mg Tablet,Extended Release 24 Hr Take 1 tablet by mouth every morning for 30 days. Oral No Longer Active 07/12/2017 [facility] Ferrous Sulfate 325 Mg (65 Mg Iron) Tablet Take 1 tablet by mouth daily for 30 days. Oral No Longer Active 07/12/2017 [facility] Ascorbic Acid (Vitamin C) 250 Mg Tablet Take 1 tablet by mouth daily for 30 days. Oral No Longer Active 07/12/2017 [facility] Carvedilol 25 Mg Tablet Take 1 tablet by mouth 2 times daily for 30 days. Oral No Longer Active 07/12/2017 [facility] Bumetanide 1 Mg Tablet Take 1 tablet by mouth 2 times daily. Oral Active 07/12/2017 [facility] Furosemide 40 Mg Tablet Lasix 40 Mg Tablet Take 1 tablet by mouth daily for 7 days. Oral Inactive 05/31/2017 [facility] Clotrimazole 1 % Topical Solution Apply 1-2 drops to affected nails 2 times a day. Use a nail file to keep nails thin. Treatment may take up to 1 year. Active 04/18/2017 [facility] Benzonatate 100 Mg Capsule Tessalon Perles 100 Mg Capsule Take 1 capsule by mouth 3 times daily as needed for up to 7 days for Cough. Oral No Longer Active 03/27/2017 [facility] Atorvastatin 40 Mg Tablet Take 1 tablet by mouth at bedtime nightly. Oral No Longer Active 02/21/2017 [facility] insulin NPH (NOVOLIN N, HUMULIN N) 100 unit/mL injection Inject 10 units in the morning and 20 units in the evening. Active 02/21/2017 [facility] Insulin Syringe-Needle U-100 1/2 Ml 30 Gauge X 5/16" Ultra Comfort Insulin Syringe 1/2 Ml 30 Gauge X 5/16" Use to inject medication 2 times daily. Use a new syringe each time. Subcutaneous Active 02/21/2017 [facility] Novolog Flexpen U-100 Insulin Aspart 100 Unit/Ml Subcutaneous Twice daily under skin if sugars 201-250 - Inject 2 units ; if sugars 251- 300 - Inject 4 unit; if sugars 301-350 - Inject 6 units; If sugars 351-500 - inject 8 units; >500 call clinic. No Longer Active 01/26/2017 [facility] insulin detemir (LEVEMIR FLEXTOUCH) 100 unit/mL (3 mL) Pen Inject 5 Units under the skin daily for 184 days. Subcutaneous No Longer Active 01/26/2017 [facility] pen needle, diabetic (NOVOFINE) 30 gauge x 1/3" needles Inject under the skin 4 times daily Use as directed. Subcutaneous Inactive 01/26/2017 [facility] Hydralazine 25 Mg Tablet Take 3 tablets by mouth 3 times daily. Oral No Longer Active 01/26/2017 [facility] Carvedilol 25 Mg Tablet Coreg 25 Mg Tablet Take 1 tablet by mouth 2 times daily (with meals) Oral No Longer Active 01/26/2017 [facility] Ondansetron Hcl 4 Mg Tablet Zofran 4 Mg Tablet Take 1 tablet by mouth every 8 hours as needed for up to 7 days for Nausea. Oral No Longer Active 01/26/2017 [facility] Dexilant 30 Mg Capsule, Delayed Release Take 1 capsule by mouth daily. Oral Active 01/26/2017 [facility] Carvedilol 25 Mg Tablet Coreg 25 Mg Tablet Take 1 tablet by mouth 2 times daily (with meals) for 90 days. Oral No Longer Active 12/16/2016 [facility] esomeprazole (NEXIUM) 40 mg packet Take 1 Packet by mouth every morning (before breakfast). Oral No Longer Active 11/24/2016 [facility] Hydralazine 25 Mg Tablet Take 2 tablets by mouth 4 times daily. Oral No Longer Active 11/24/2016 [facility] insulin NPH (NOVOLIN N, HUMULIN N) 100 unit/mL injection Inject 12 Units under the skin every morning for 90 days. Subcutaneous No Longer Active 11/24/2016 [facility] Tramadol 50 Mg Tablet Take 1 tablet by mouth 4 times daily as needed for Pain. Oral No Longer Active 11/24/2016 [facility] Amlodipine 10 Mg Tablet Norvasc 10 Mg Tablet Take 1 tablet by mouth daily. Oral No Longer Active 11/24/2016 [facility] Aspirin 81 Mg Chewable Tablet Chew and swallow 1 tablet by mouth daily. No Longer Active 11/24/2016 [facility] Atorvastatin 40 Mg Tablet Take 1 tablet by mouth at bedtime nightly. Oral No Longer Active 11/24/2016 [facility] Blood Sugar Diagnostic Strips Use 3 times daily (before meals). Active 11/24/2016 [facility] Insulin Syringe-Needle U-100 1/2 Ml 28 Gauge Use as Directed.. No Longer Active 11/24/2016 [facility] Lancets 28 Gauge by MISCELLANEOUS route 3 times daily. Active 11/24/2016 [facility] Blood-Glucose Meter Use as directed.. Active 11/24/2016 [facility] Cholecalciferol (Vitamin D3) 1,000 Unit Tablet Take 2 tablets by mouth daily. Oral Active 11/24/2016 [facility] atorvastatin 40 mg oral tablet 40 mg=1 tab, PO, Bedtime, # 30 tab, 0 Refill(s) Active 04/05/2016 [facility] Aspirin 81 MG Enteric Coated Tablet 81 mg=1 tab, PO, Daily, # 30 tab, 0 Refill(s) Active 04/05/2016 [facility] lisinopril 20 mg oral tablet 20 mg=1 tab, PO, Daily, # 30 tab, 0 Refill(s) Active 04/05/2016 [facility] metoprolol tartrate 25 mg oral tablet 25 mg=1 tab, PO, BID, # 60 tab, 0 Refill(s) Active 04/05/2016 [facility] metoprolol tartrate 25 mg oral tablet 25 mg=1 tab, PO, BID, # 180 tab, 0 Refill(s) Inactive 04/05/2016 [facility] lisinopril 20 mg oral tablet 20 mg=1 tab, PO, Daily, # 30 tab, 0 Refill(s) Inactive 04/05/2016 [facility] atorvastatin 40 mg, 1 tab, Route: PO, Drug form: TAB, Bedtime, Dosing Weight 68.636, kg, Start date: 04/04/16 21:00:00 CDT, Duration: 30 day, Stop date: 05/03/16 21:00:00 CDTNotes: (Same as: Lipitor) No Longer Active 04/05/2016 [facility] Lopressor 25 mg, 1 tab, Route: PO, Drug form: TAB, Q12H, Dosing Weight 68.636, kg, Start date: 04/04/16 21:00:00 CDT, Duration: 30 day, Stop date: 05/04/16 9:00:00 CDTNotes: (Same as: Lopressor) No Longer Active 04/05/2016 [facility] Clonidine 0.1 mg, 1 tab, Route: PO, Drug form: TAB, Q8H, Dosing Weight 68.636, kg, PRN Hypertension, Start date: 04/04/16 16:27:00 CDT, Duration: 30 day, Stop date: 05/04/16 16:26:00 CDTNotes: (Same As: Catapres) No Longer Active 04/04/2016 [facility] Saline Flush 0.9% 10 ml, Route: IVP, Drug Form: INJ, Dosing Weight 69.545, kg, Q12H, Start date: 04/04/16 9:00:00 CDT, Duration: 30 day, Stop date: 05/03/16 21:00:00 CDTNotes: (Same as: BD Posiflush) No Longer Active 04/04/2016 [facility] Aspirin 81 MG Enteric Coated Tablet 81 mg, 1 tab, Route: PO, Drug form: ECTAB, Daily, Dosing Weight 69.545, kg, Start date: 04/04/16 9:00:00 CDT, Duration: 30 day, Stop date: 05/03/16 9:00:00 CDTNotes: Do not crush or chew. (Same As: Ecotrin) No Longer Active 04/04/2016 [facility] Famotidine 20 mg, 1 tab, Route: PO, Drug form: TAB, Q12H, Dosing Weight 69.545, kg, Start date: 04/04/16 9:00:00 CDT, Duration: 30 day, Stop date: 05/03/16 21:00:00 CDTNotes: (Same as: Pepcid) No Longer Active 04/04/2016 [facility] Insulin, Aspart, Human 8 unit, 0.08 mL, Route: SUB-Q, Drug form: SOLN, TID-Before Meals, Dosing Weight 69.545, kg, PRN Blood Glucose Results, Start date: 04/04/16 1:15:00 CDT, Duration: 30 day, Stop date: 05/04/16 1:14:00 CDTNotes: Roll in palms of hands gently; Do not shake vigorously. (Same as: NovoLOG) "single patient use only" WASTE: F/P - Black; E - Municipal Trash Bin Stable for 28 days at room temperature. Expires in days from Date No Longer Active 04/04/2016 [facility] Glucagon 1 mg, Route: IM, Drug form: PDR/INJ, PRN, Dosing Weight 69.545, kg, PRN Blood Glucose Results, Start date: 04/04/16 1:15:00 CDT, Duration: 30 day, Stop date: 05/04/16 1:14:00 CDT No Longer Active 04/04/2016 [facility] Dextrose 50% Syringe 25 gm, 50 mL, Route: IVP, Drug Form: INJ, Dosing Weight 69.545, kg, PRN, PRN Blood Glucose Results, Start date: 04/04/16 1:15:00 CDT, Duration: 30 day, Stop date: 05/04/16 1:14:00 CDT No Longer Active 04/04/2016 [facility] Saline Flush 0.9% 10 ml, Route: IVP, Drug Form: INJ, Dosing Weight 69.545, kg, PRN, PRN Line Flush, Start date: 04/04/16 1:15:00 CDT, Duration: 30 day, Stop date: 05/04/16 1:14:00 CDTNotes: (Same as: BD Posiflush) No Longer Active 04/04/2016 [facility] Labetalol 10 mg, 2 mL, Route: IVP, Drug form: INJ, Q10Min, Dosing Weight 69.545, kg, PRN Hypertension, For SBP > 180 mmHg and/or DBP > 105 mmHg, Priority: Routine, Start date: 04/04/16 1:15:00 CDT, Duration: 30 day, Stop date: 05/04/16 1:14:00 CDTNotes: (Same as: Normodyne, Trandate) Push over 2 minutes Give bolus over 2-3 minutes. No Longer Active 04/04/2016 [facility] Morphine 2 mg, 1 mL, Route: IVP, Drug form: INJ, Q6H, Dosing Weight 69.545, kg, PRN Pain Score 6-10, Start date: 04/04/16 1:15:00 CDT, Duration: 30 day, Stop date: 05/04/16 1:14:00 CDTNotes: (Same as:MORPhine Sulfate) No Longer Active 04/04/2016 [facility] Aspirin 324 mg, Route: CHEW, Drug form: CHEWTAB, ONCE, Dosing Weight 69.545, kg, Priority: STAT, Start date: 04/04/16 0:04:00 CDT, Stop date: 04/04/16 0:04:00 CDT Inactive 04/04/2016 [facility] Nitroglycerin 0.02 MG/MG Topical Ointment 0.5 inch, Route: TOP, Drug Form: OINT, Dosing Weight 69.545, kg, ONCE, STAT, Start date: 04/03/16 22:30:00 CDT, Stop date: 04/03/16 22:30:00 CDTNotes: 1 gram is approximately 1 inch of nitroglycerin ointment (20 mg NTG per gram) (Same as:Nitro-Bid) Inactive 04/04/2016 [facility] Hydralazine 20 mg, 1 mL, Route: IVP, Drug form: INJ, ONCE, Dosing Weight 69.545, kg, Priority: STAT, Start date: 04/03/16 19:39:00 CDT, Stop date: 04/03/16 19:39:00 CDTNotes: (Same as: Apresoline) Push over 5 minutes Inactive 04/04/2016 [facility] Saline Flush 0.9% 10 mL, Route: IVP, Drug Form: INJ, Dosing Weight 69.545, kg, PRN, PRN Line Flush, Start date: 04/03/16 19:39:00 CDT, Duration: 30 day, Stop date: 05/03/16 19:38:00 CDTNotes: (Same as: BD Posiflush) No Longer Active 04/04/2016 [facility] Allergies, Adverse Reactions, Alerts Substance Category Reaction Severity Reaction type Status Date Reported Comments Source No Known Medication Allergies Assertion Drug allergy REY Ansari Immunizations Immunization Date Given Site Status Last Updated Comments Source tuberculin skin test; purified protein derivative solution, intradermal 02/10/2018 [facility]: [facility] influenza, high dose seasonal, preservative-free 09/28/2017 Not Given SNF: [facility] pneumococcal conjugate vaccine, 13 valent 09/28/2017 Not Given SNF: [facility] tuberculin skin test; purified protein derivative solution, intradermal 09/27/2017 [facility]: [facility] Influenza Vaccine 07/12/2017 Not Given Deferred: Patient Refused [facility] Herpes Zoster Vaccine In Clinic 02/21/2017 [facility] PNEUMOCOCCAL 23-VALPS VACCINE 25 MCG/0.5 ML INJECTION 10/03/2016 [facility] Pneumococcal 13-valent conj 0.5 mL injection 08/13/2015 Not Given Deferred: Patient already had this immunization - [facility] Tetanus Toxoid <Unspecified> 02/21/2014 [facility] PPV 23 (Pneumococcal Polysaccharide 23 Valent) 02/28/2012 [facility] TDap (Tetanus Toxoid, Reduced Diphtheria Toxoid And Acellular Pertussis, Absorbed) 02/28/2012 [facility] Results Order Name Results Value Reference Range Date Interpretation Comments Source IMMUNOLOGY Hep Bs Ag Negative *NA* (02/16/18 7:40 AM) Negative 02/16/2018 [facility] CHEM PANEL eGFR 9 02/16/2018 Result Comment: The eGFR is calculated using the CKD-EPI formula. In most young, healthy individuals the eGFR will be >90 mL/min/1.73m2. The eGFR declines with age. An eGFR of 60-89 may be normal in some populations, particularly the elderly, for whom the CKD-EPI formula has not been extensively validated. Use of the eGFR is not recommended in the following populations:

Individuals with unstable creatinine concentrations, including patients and those with serious co-morbid conditions.

Patients with extremes in muscle mass or diet.

The data above are obtained from the National Kidney Disease Education Program (NKDEP) which additionally recommends that when the eGFR is used in patients with extremes of body mass index for purposes of drug dosing, the eGFR should be multiplied by the estimated BMI. [facility] CHEM PANEL Albumin Lvl 2.3 3.5 - 5.0 02/16/2018 [facility] CHEM PANEL Bili Total 0.3 0.2 - 1.3 02/16/2018 [facility] CHEM PANEL Alk Phos 120 39 - 136 02/16/2018 [facility] CHEM PANEL AST 20 0 - 37 02/16/2018 [facility] CHEM PANEL ALT 17 0 - 65 02/16/2018 [facility] CHEM PANEL Creatinine Lvl 6.32 0.50 - 1.40 02/16/2018 [facility] CHEM PANEL Sodium Lvl 146 135 - 145 02/16/2018 [facility] CHEM PANEL Potassium Lvl 5.6 3.5 - 5.1 02/16/2018 [facility] CHEM PANEL Chloride Lvl 110 95 - 109 02/16/2018 [facility] CHEM PANEL CO2 27 24 - 32 02/16/2018 [facility] CHEM PANEL Calcium Lvl 8.6 8.5 - 10.5 02/16/2018 [facility] CHEM PANEL Total Protein 6.5 6.4 - 8.4 02/16/2018 [facility] CHEM PANEL BUN 40 7 - 22 02/16/2018 [facility] CHEM PANEL Glucose Lvl 183 70 - 99 02/16/2018 [facility] CHEM PANEL B/C Ratio 6 6 - 25 02/16/2018 [facility] CHEM PANEL AGAP 14.6 10.0 - 20.0 02/16/2018 [facility] CHEM PANEL A/G Ratio 0.5 0.7 - 1.6 02/16/2018 [facility] CHEM PANEL Globulin 4.2 2.7 - 4.2 02/16/2018 [facility] [facility] HEM[facility]Y MCH 29.3 27.0 - 31.0 02/16/2018 [facility] HEMATOLOGY MCV 91.2 80.0 - 94.0 02/16/2018 [facility] HEMATOLOGY Platelet 210 133 - 450 02/16/2018 [facility] HEMATOLOGY RDW 20.9 11.5 - 14.5 02/16/2018 [facility] HEMATOLOGY MCHC 32.1 32.0 - 36.0 02/16/2018 [facility] HEMATOLOGY WBC 11.0 3.7 - 10.4 02/16/2018 [facility] HEMATOLOGY MPV 8.9 7.4 - 10.4 02/16/2018 [facility] HEMATOLOGY RBC 2.92 4.70 - 6.10 02/16/2018 [facility] HEMATOLOGY Hct 26.7 42.0 - 54.0 02/16/2018 [facility] HEMATOLOGY Hgb 8.6 14.0 - 18.0 02/16/2018 [facility] HEMATOLOGY Lymphocytes # 1.3 1.0 - 5.5 02/16/2018 [facility] HEMATOLOGY Basophils # 0.2 0.0 - 0.2 02/16/2018 [facility] HEMATOLOGY Eosinophils # 0.9 0.0 - 0.5 02/16/2018 [facility] HEMATOLOGY Monocytes # 1.6 0.0 - 0.8 02/16/2018 [facility] HEMATOLOGY Monocytes 14.4 2.0 - 12.0 02/16/2018 [facility] HEMATOLOGY Basophils 1.7 0.0 - 1.0 02/16/2018 [facility] HEMATOLOGY Eosinophils 8.0 0.0 - 4.0 02/16/2018 [facility] Segs-Bands # 7.0 1.5 - 8.1 02/16/2018 [facility] Lymphocytes 11.9 20.0 - 40.0 02/16/2018 [facility] Segs 64.0 45.0 - 75.0 02/16/2018 [facility] CARDIAC ENZYMES BNP 1652 <=100 pg/mL 02/15/2018 [facility] CHEM PANEL Magnesium Lvl 2.3 1.8 - 2.4 02/15/2018 [facility] CHEM PANEL Phosphorus 5.6 2.5 - 4.5 02/15/2018 [facility] CHEM PANEL eGFR 9 02/15/2018 Result Comment: The eGFR is calculated using the CKD-EPI formula. In most young, healthy individuals the eGFR will be >90 mL/min/1.73m2. The eGFR declines with age. An eGFR of 60-89 may be normal in some populations, particularly the elderly, for whom the CKD-EPI formula has not been extensively validated. Use of the eGFR is not recommended in the following populations:

Individuals with unstable creatinine concentrations, including patients and those with serious co-morbid conditions.

Patients with extremes in muscle mass or diet.

The data above are obtained from the National Kidney Disease Education Program (NKDEP) which additionally recommends that when the eGFR is used in patients with extremes of body mass index for purposes of drug dosing, the eGFR should be multiplied by the estimated BMI. [facility] CHEM PANEL CO2 26 24 - 32 02/15/2018 [facility] CHEM PANEL Calcium Lvl 8.7 8.5 - 10.5 02/15/2018 [facility] CHEM PANEL Albumin Lvl 2.6 3.5 - 5.0 02/15/2018 [facility] CHEM PANEL ALT 15 0 - 65 02/15/2018 [facility] CHEM PANEL Total Protein 7.2 6.4 - 8.4 02/15/2018 [facility] CHEM PANEL AST 23 0 - 37 02/15/2018 [facility] CHEM PANEL Alk Phos 146 39 - 136 02/15/2018 [facility] CHEM PANEL Bili Total 0.3 0.2 - 1.3 02/15/2018 [facility] CHEM PANEL Potassium Lvl 5.5 3.5 - 5.1 02/15/2018 [facility] CHEM PANEL Chloride Lvl 107 95 - 109 02/15/2018 [facility] CHEM PANEL Glucose Lvl 157 70 - 99 02/15/2018 [facility] CHEM PANEL BUN 39 7 - 22 02/15/2018 [facility] CHEM PANEL Creatinine Lvl 6.36 0.50 - 1.40 02/15/2018 [facility] CHEM PANEL Sodium Lvl 142 135 - 145 02/15/2018 [facility] CHEM PANEL B/C Ratio 6 6 - 25 02/15/2018 [facility] CHEM PANEL A/G Ratio 0.6 0.7 - 1.6 02/15/2018 [facility] CHEM PANEL AGAP 14.5 10.0 - 20.0 02/15/2018 [facility] CHEM PANEL Globulin 4.6 2.7 - 4.2 02/15/2018 [facility] HEMATOLOGY Eosinophils 5.6 0.0 - 4.0 02/15/2018 [facility] HEMATOLOGY Basophils 1.6 0.0 - 1.0 02/15/2018 [facility] HEMATOLOGY Eosinophils # 0.7 0.0 - 0.5 02/15/2018 [facility] HEMATOLOGY Basophils # 0.2 0.0 - 0.2 02/15/2018 [facility] HEMATOLOGY Lymphocytes # 1.9 1.0 - 5.5 02/15/2018 [facility] HEMATOLOGY Monocytes # 1.7 0.0 - 0.8 02/15/2018 [facility] HEMATOLOGY Monocytes 12.9 2.0 - 12.0 02/15/2018 [facility] HEMATOLOGY Lymphocytes 14.1 20.0 - 40.0 02/15/2018 [facility] HEMATOLOGY Segs-Bands # 8.7 1.5 - 8.1 02/15/2018 [facility] Segs 65.8 45.0 - 75.0 02/15/2018 [facility] MCHC 32.3 32.0 - 36.0 02/15/2018 [facility] MPV 8.9 7.4 - 10.4 02/15/2018 [facility] RDW 20.9 11.5 - 14.5 02/15/2018 [facility] Platelet 231 133 - 450 02/15/2018 [facility] Hct 28.8 42.0 - 54.0 02/15/2018 [facility] Hgb 9.3 14.0 - 18.0 02/15/2018 [facility] RBC 3.14 4.70 - 6.10 02/15/2018 [facility] MCV 91.8 80.0 - 94.0 02/15/2018 [facility] MCH 29.7 27.0 - 31.0 02/15/2018 [facility] WBC 13.2 3.7 - 10.4 02/15/2018 [facility] Blood sugar Blood sugar 148 02/13/2018 [facility]: [facility] TOXICOLOGY Amikacin Lvl 10.6 02/09/2018 [facility] ELECTROLYTES AGAP 13.6 10.0 - 20.0 02/09/2018 [facility] ELECTROLYTES CO2 28 24 - 32 02/09/2018 [facility] ELECTROLYTES Chloride Lvl 107 95 - 109 02/09/2018 [facility] ELECTROLYTES Calcium Lvl 8.2 8.5 - 10.5 02/09/2018 [facility] ELECTROLYTES Sodium Lvl 145 135 - 145 02/09/2018 [facility] ELECTROLYTES Creatinine Lvl 3.84 0.50 - 1.40 02/09/2018 [facility] ELECTROLYTES BUN 13 7 - 22 02/09/2018 [facility] ELECTROLYTES Potassium Lvl 3.6 3.5 - 5.1 02/09/2018 [facility] ELECTROLYTES Glucose Lvl 88 70 - 99 02/09/2018 [facility] ELECTROLYTES eGFR 16 02/09/2018 Result Comment: The eGFR is calculated using the CKD-EPI formula. In most young, healthy individuals the eGFR will be >90 mL/min/1.73m2. The eGFR declines with age. An eGFR of 60-89 may be normal in some populations, particularly the elderly, for whom the CKD-EPI formula has not been extensively validated. Use of the eGFR is not recommended in the following populations:

Individuals with unstable creatinine concentrations, including patients and those with serious co-morbid conditions.

Patients with extremes in muscle mass or diet.

The data above are obtained from the National Kidney Disease Education Program (NKDEP) which additionally recommends that when the eGFR is used in patients with extremes of body mass index for purposes of drug dosing, the eGFR should be multiplied by the estimated BMI. [facility] CHEM PANEL eGFR 21 02/08/2018 Result Comment: The eGFR is calculated using the CKD-EPI formula. In most young, healthy individuals the eGFR will be >90 mL/min/1.73m2. The eGFR declines with age. An eGFR of 60-89 may be normal in some populations, particularly the elderly, for whom the CKD-EPI formula has not been extensively validated. Use of the eGFR is not recommended in the following populations:

Individuals with unstable creatinine concentrations, including patients and those with serious co-morbid conditions.

Patients with extremes in muscle mass or diet.

The data above are obtained from the National Kidney Disease Education Program (NKDEP) which additionally recommends that when the eGFR is used in patients with extremes of body mass index for purposes of drug dosing, the eGFR should be multiplied by the estimated BMI. [facility] CHEM PANEL Sodium Lvl 141 135 - 145 02/08/2018 [facility] CHEM PANEL CO2 29 24 - 32 02/08/2018 [facility] CHEM PANEL BUN 7 7 - 22 02/08/2018 [facility] CHEM PANEL Glucose Lvl 117 70 - 99 02/08/2018 [facility] CHEM PANEL Calcium Lvl 8.6 8.5 - 10.5 02/08/2018 [facility] CHEM PANEL AGAP 9.6 10.0 - 20.0 02/08/2018 [facility] CHEM PANEL Potassium Lvl 3.6 3.5 - 5.1 02/08/2018 [facility] CHEM PANEL Creatinine Lvl 3.06 0.50 - 1.40 02/08/2018 [facility] CHEM PANEL Chloride Lvl 106 95 - 109 02/08/2018 [facility] HEMATOLOGY Lymphocytes # 1.9 1.0 - 5.5 02/08/2018 [facility] HEMATOLOGY Segs-Bands # 8.7 1.5 - 8.1 02/08/2018 [facility] HEMATOLOGY Basophils 1.0 0.0 - 1.0 02/08/2018 [facility] Basophils # 0.1 0.0 - 0.2 02/08/2018 [facility] HEMATOLOGY Monocytes # 1.8 0.0 - 0.8 02/08/2018 [facility] Eosinophils # 0.6 0.0 - 0.5 02/08/2018 [facility] Eosinophils 4.6 0.0 - 4.0 02/08/2018 [facility] Monocytes 13.3 2.0 - 12.0 02/08/2018 [facility] Segs 66.4 45.0 - 75.0 02/08/2018 [facility] Lymphocytes 14.7 20.0 - 40.0 02/08/2018 [facility] Hct 28.8 42.0 - 54.0 02/08/2018 [facility] MCV 90.2 80.0 - 94.0 02/08/2018 [facility] MCHC 31.6 32.0 - 36.0 02/08/2018 [facility] RDW 21.9 11.5 - 14.5 02/08/2018 [facility] MCH 28.5 27.0 - 31.0 02/08/2018 [facility] Platelet 177 133 - 450 02/08/2018 [facility] MPV 9.5 7.4 - 10.4 02/08/2018 [facility] WBC 13.1 3.7 - 10.4 02/08/2018 [facility] RBC 3.19 4.70 - 6.10 02/08/2018 [facility] Hgb 9.1 14.0 - 18.0 02/08/2018 [facility] CHEM PANEL Glucose Lvl 84 70 - 99 02/07/2018 [facility] CHEM PANEL eGFR 45 02/07/2018 Result Comment: The eGFR is calculated using the CKD-EPI formula. In most young, healthy individuals the eGFR will be >90 mL/min/1.73m2. The eGFR declines with age. An eGFR of 60-89 may be normal in some populations, particularly the elderly, for whom the CKD-EPI formula has not been extensively validated. Use of the eGFR is not recommended in the following populations:

Individuals with unstable creatinine concentrations, including patients and those with serious co-morbid conditions.

Patients with extremes in muscle mass or diet.

The data above are obtained from the National Kidney Disease Education Program (NKDEP) which additionally recommends that when the eGFR is used in patients with extremes of body mass index for purposes of drug dosing, the eGFR should be multiplied by the estimated BMI. [facility] CHEM PANEL CO2 30 24 - 32 02/07/2018 [facility] CHEM PANEL BUN 5 7 - 22 02/07/2018 [facility] CHEM PANEL Calcium Lvl 7.7 8.5 - 10.5 02/07/2018 [facility] CHEM PANEL Creatinine Lvl 1.61 0.50 - 1.40 02/07/2018 [facility] CHEM PANEL Sodium Lvl 144 135 - 145 02/07/2018 [facility] CHEM PANEL Potassium Lvl 3.8 3.5 - 5.1 02/07/2018 [facility] CHEM PANEL Chloride Lvl 106 95 - 109 02/07/2018 [facility] CHEM PANEL AGAP 11.8 10.0 - 20.0 02/07/2018 [facility] TOXICOLOGY Amikacin Lvl 4.6 02/07/2018 [facility] IMMUNOLOGY Hep Bs Ag Negative *NA* (02/05/18 6:37 AM) Negative 02/05/2018 [facility] TOXICOLOGY Amikacin Lvl 11.4 02/05/2018 [facility] Gram Stain Report No Wbc'S Or Organisms Seen 02/05/2018 [facility] Culture: Wound/Abscess w/Gram Stain No Growth 02/05/2018 [facility] RDW 20.8 11.5 - 14.5 02/04/2018 [facility] Platelet 145 133 - 450 02/04/2018 [facility] MPV 9.3 7.4 - 10.4 02/04/2018 [facility] Hct 28.4 42.0 - 54.0 02/04/2018 [facility] MCV 88.4 80.0 - 94.0 02/04/2018 [facility] MCH 28.4 27.0 - 31.0 02/04/2018 [facility] MCHC 32.1 32.0 - 36.0 02/04/2018 [facility] WBC 19.7 3.7 - 10.4 02/04/2018 [facility] RBC 3.21 4.70 - 6.10 02/04/2018 [facility] Hgb 9.1 14.0 - 18.0 02/04/2018 [facility] Lymphocytes # 1.9 1.0 - 5.5 02/04/2018 [facility] HEMATOLOGY Eosinophils 3.9 0.0 - 4.0 02/04/2018 [facility] HEMATOLOGY Basophils 1.2 0.0 - 1.0 02/04/2018 [facility] HEMATOLOGY Segs-Bands # 15.0 1.5 - 8.1 02/04/2018 [facility] HEMATOLOGY Monocytes # 1.8 0.0 - 0.8 02/04/2018 [facility] HEMATOLOGY Eosinophils # 0.8 0.0 - 0.5 02/04/2018 [facility] HEMATOLOGY Basophils # 0.2 0.0 - 0.2 02/04/2018 [facility] Anisocyte 1+ *ABN* (02/04/18 4:49 AM) None Seen 02/04/2018 [facility] Lymphocytes 9.6 20.0 - 40.0 02/04/2018 [facility] Segs 76.3 45.0 - 75.0 02/04/2018 [facility] Monocytes 9.0 2.0 - 12.0 02/04/2018 [facility] Plt Morph Normal (02/04/18 4:49 AM) 02/04/2018 [facility] RBC Morph See Note (02/04/18 4:49 AM) 02/04/2018 [facility] HEMATOLOGY Sed Rate 68 0 - 15 02/03/2018 [facility] IMMUNOLOGY C-REACTIVE PROTEIN 19.1 <=2.9 mg/L 02/03/2018 [facility] CHEM PANEL ALT 8 0 - 65 02/03/2018 [facility] CHEM PANEL Albumin Lvl 2.3 3.5 - 5.0 02/03/2018 [facility] CHEM PANEL AST 13 0 - 37 02/03/2018 [facility] CHEM PANEL Total Protein 6.7 6.4 - 8.4 02/03/2018 [facility] CHEM PANEL Alk Phos 100 39 - 136 02/03/2018 [facility] CHEM PANEL Bili Total 0.2 0.2 - 1.3 02/03/2018 [facility] CHEM PANEL A/G Ratio 0.5 0.7 - 1.6 02/03/2018 [facility] CHEM PANEL B/C Ratio 4 6 - 25 02/03/2018 [facility] CHEM PANEL Globulin 4.4 2.7 - 4.2 02/03/2018 [facility] MCHC 32.2 32.0 - 36.0 02/03/2018 [facility] HEMATOLOGY Platelet 100 133 - 450 02/03/2018 [facility] MPV 10.0 7.4 - 10.4 02/03/2018 [facility] RDW 16.7 11.5 - 14.5 02/03/2018 [facility] MCH 28.8 27.0 - 31.0 02/03/2018 [facility] WBC 19.2 3.7 - 10.4 02/03/2018 [facility] RBC 2.99 4.70 - 6.10 02/03/2018 [facility] Hgb 8.6 14.0 - 18.0 02/03/2018 [facility] Hct 26.7 42.0 - 54.0 02/03/2018 [facility] MCV 89.2 80.0 - 94.0 02/03/2018 [facility] Monocytes # 1.3 0.0 - 0.8 02/03/2018 [facility] Lymphocytes # 1.2 1.0 - 5.5 02/03/2018 [facility] Segs-Bands # 16.6 1.5 - 8.1 02/03/2018 [facility] Basophils 0.4 0.0 - 1.0 02/03/2018 [facility] Eosinophils 0.1 0.0 - 4.0 02/03/2018 [facility] Monocytes 6.9 2.0 - 12.0 02/03/2018 [facility] Lymphocytes 6.1 20.0 - 40.0 02/03/2018 [facility] Segs 86.5 45.0 - 75.0 02/03/2018 [facility] Basophils # 0.1 0.0 - 0.2 02/03/2018 [facility] CHEM PANEL Phosphorus 3.8 2.5 - 4.5 01/29/2018 [facility] CHEM PANEL Magnesium Lvl 1.9 1.8 - 2.4 01/29/2018 [facility] CHEM PANEL eGFR 16 01/29/2018 Result Comment: The eGFR is calculated using the CKD-EPI formula. In most young, healthy individuals the eGFR will be >90 mL/min/1.73m2. The eGFR declines with age. An eGFR of 60-89 may be normal in some populations, particularly the elderly, for whom the CKD-EPI formula has not been extensively validated. Use of the eGFR is not recommended in the following populations:

Individuals with unstable creatinine concentrations, including patients and those with serious co-morbid conditions.

Patients with extremes in muscle mass or diet.

The data above are obtained from the National Kidney Disease Education Program (NKDEP) which additionally recommends that when the eGFR is used in patients with extremes of body mass index for purposes of drug dosing, the eGFR should be multiplied by the estimated BMI. [facility] CHEM PANEL Chloride Lvl 97 95 - 109 01/29/2018 [facility] CHEM PANEL Calcium Lvl 11.5 8.5 - 10.5 01/29/2018 [facility] CHEM PANEL CO2 28 24 - 32 01/29/2018 [facility] CHEM PANEL BUN 19 7 - 22 01/29/2018 [facility] CHEM PANEL Sodium Lvl 132 135 - 145 01/29/2018 [facility] CHEM PANEL Glucose Lvl 101 70 - 99 01/29/2018 [facility] CHEM PANEL Creatinine Lvl 3.88 0.50 - 1.40 01/29/2018 [facility] CHEM PANEL Potassium Lvl 3.7 3.5 - 5.1 01/29/2018 [facility] CHEM PANEL AGAP 10.7 10.0 - 20.0 01/29/2018 [facility] HEMATOLOGY Basophils # 0.1 0.0 - 0.2 01/29/2018 [facility] HEMATOLOGY Eosinophils # 1.2 0.0 - 0.5 01/29/2018 [facility] Monocytes # 1.8 0.0 - 0.8 01/29/2018 [facility] Lymphocytes # 1.7 1.0 - 5.5 01/29/2018 [facility] Segs-Bands # 9.8 1.5 - 8.1 01/29/2018 [facility] Eosinophils 8.1 0.0 - 4.0 01/29/2018 [facility] Basophils 1.0 0.0 - 1.0 01/29/2018 [facility] Monocytes 12.3 2.0 - 12.0 01/29/2018 [facility] Lymphocytes 11.8 20.0 - 40.0 01/29/2018 [facility] Segs 66.8 45.0 - 75.0 01/29/2018 [facility] Platelet 129 133 - 450 01/29/2018 [facility] RDW 15.9 11.5 - 14.5 01/29/2018 [facility] MPV 10.2 7.4 - 10.4 01/29/2018 [facility] MCHC 32.5 32.0 - 36.0 01/29/2018 [facility] HEMATOLOGY Hgb 9.3 14.0 - 18.0 01/29/2018 [facility] HEMATOLOGY MCH 28.1 27.0 - 31.0 01/29/2018 [facility] HEMATOLOGY MCV 86.4 80.0 - 94.0 01/29/2018 [facility] HEMATOLOGY Hct 28.7 42.0 - 54.0 01/29/2018 [facility] HEMATOLOGY RBC 3.33 4.70 - 6.10 01/29/2018 [facility] HEMATOLOGY WBC 14.7 3.7 - 10.4 01/29/2018 [facility] TOXICOLOGY Amikacin Lvl 7.0 01/29/2018 [facility] MPV 10.0 7.4 - 10.4 01/27/2018 [facility] RDW 15.9 11.5 - 14.5 01/27/2018 [facility] Platelet 92 133 - 450 01/27/2018 [facility] MCV 86.9 80.0 - 94.0 01/27/2018 [facility] MCHC 33.5 32.0 - 36.0 01/27/2018 [facility] RBC 3.17 4.70 - 6.10 01/27/2018 [facility] Hgb 9.2 14.0 - 18.0 01/27/2018 [facility] MCH 29.1 27.0 - 31.0 01/27/2018 [facility] WBC 11.0 3.7 - 10.4 01/27/2018 [facility] Hct 27.5 42.0 - 54.0 01/27/2018 [facility] Monocytes 13.6 2.0 - 12.0 01/27/2018 [facility] HEMATOLOGY Eosinophils 12.3 0.0 - 4.0 01/27/2018 [facility] HEMATOLOGY Monocytes # 1.5 0.0 - 0.8 01/27/2018 [facility] HEMATOLOGY Eosinophils # 1.4 0.0 - 0.5 01/27/2018 [facility] HEMATOLOGY Basophils # 0.1 0.0 - 0.2 01/27/2018 [facility] Lymphocytes 15.2 20.0 - 40.0 01/27/2018 [facility] HEMATOLOGY Segs 57.6 45.0 - 75.0 01/27/2018 [facility] Segs-Bands # 6.3 1.5 - 8.1 01/27/2018 [facility] Basophils 1.3 0.0 - 1.0 01/27/2018 [facility] HEMATOLOGY Lymphocytes # 1.7 1.0 - 5.5 01/27/2018 [facility] CHEM PANEL eGFR 27 01/25/2018 Result Comment: The eGFR is calculated using the CKD-EPI formula. In most young, healthy individuals the eGFR will be >90 mL/min/1.73m2. The eGFR declines with age. An eGFR of 60-89 may be normal in some populations, particularly the elderly, for whom the CKD-EPI formula has not been extensively validated. Use of the eGFR is not recommended in the following populations:

Individuals with unstable creatinine concentrations, including patients and those with serious co-morbid conditions.

Patients with extremes in muscle mass or diet.

The data above are obtained from the National Kidney Disease Education Program (NKDEP) which additionally recommends that when the eGFR is used in patients with extremes of body mass index for purposes of drug dosing, the eGFR should be multiplied by the estimated BMI. [facility] CHEM PANEL Chloride Lvl 100 95 - 109 01/25/2018 [facility] CHEM PANEL CO2 30 24 - 32 01/25/2018 [facility] CHEM PANEL Calcium Lvl 10.4 8.5 - 10.5 01/25/2018 [facility] CHEM PANEL BUN 5 7 - 22 01/25/2018 [facility] CHEM PANEL Creatinine Lvl 2.44 0.50 - 1.40 01/25/2018 [facility] CHEM PANEL Glucose Lvl 87 70 - 99 01/25/2018 [facility] CHEM PANEL Sodium Lvl 135 135 - 145 01/25/2018 [facility] CHEM PANEL Potassium Lvl 3.3 3.5 - 5.1 01/25/2018 [facility] CHEM PANEL AGAP 8.3 10.0 - 20.0 01/25/2018 [facility] HEMATOLOGY Segs 61.1 45.0 - 75.0 01/25/2018 [facility] HEMATOLOGY Lymphocytes 14.9 20.0 - 40.0 01/25/2018 [facility] HEMATOLOGY Eosinophils # 1.3 0.0 - 0.5 01/25/2018 [facility] HEMATOLOGY Basophils # 0.1 0.0 - 0.2 01/25/2018 [facility] HEMATOLOGY Monocytes 11.0 2.0 - 12.0 01/25/2018 [facility] HEMATOLOGY Basophils 1.1 0.0 - 1.0 01/25/2018 [facility] HEMATOLOGY Eosinophils 11.9 0.0 - 4.0 01/25/2018 [facility] Segs-Bands # 6.9 1.5 - 8.1 01/25/2018 [facility] Monocytes # 1.2 0.0 - 0.8 01/25/2018 [facility] Lymphocytes # 1.7 1.0 - 5.5 01/25/2018 [facility] RBC Morph Normal (01/25/18 6:52 AM) 01/25/2018 [facility] Plt Morph Normal (01/25/18 6:52 AM) 01/25/2018 [facility] MPV 9.6 7.4 - 10.4 01/25/2018 [facility] Platelet 89 133 - 450 01/25/2018 [facility] Hgb 9.1 14.0 - 18.0 01/25/2018 [facility] RBC 3.23 4.70 - 6.10 01/25/2018 [facility] WBC 11.2 3.7 - 10.4 01/25/2018 [facility] MCH 28.1 27.0 - 31.0 01/25/2018 [facility] RDW 15.9 11.5 - 14.5 01/25/2018 [facility] MCHC 32.8 32.0 - 36.0 01/25/2018 [facility] MCV 85.7 80.0 - 94.0 01/25/2018 [facility] Hct 27.7 42.0 - 54.0 01/25/2018 [facility] CHEM PANEL Phosphorus 1.3 2.5 - 4.5 01/24/2018 [facility] CHEM PANEL Magnesium Lvl 1.9 1.8 - 2.4 01/24/2018 [facility] CHEM PANEL eGFR 56 01/24/2018 Result Comment: The eGFR is calculated using the CKD-EPI formula. In most young, healthy individuals the eGFR will be >90 mL/min/1.73m2. The eGFR declines with age. An eGFR of 60-89 may be normal in some populations, particularly the elderly, for whom the CKD-EPI formula has not been extensively validated. Use of the eGFR is not recommended in the following populations:

Individuals with unstable creatinine concentrations, including patients and those with serious co-morbid conditions.

Patients with extremes in muscle mass or diet.

The data above are obtained from the National Kidney Disease Education Program (NKDEP) which additionally recommends that when the eGFR is used in patients with extremes of body mass index for purposes of drug dosing, the eGFR should be multiplied by the estimated BMI. [facility] CHEM PANEL Chloride Lvl 104 95 - 109 01/24/2018 [facility] CHEM PANEL CO2 30 24 - 32 01/24/2018 [facility] CHEM PANEL BUN 2 7 - 22 01/24/2018 [facility] CHEM PANEL Sodium Lvl 142 135 - 145 01/24/2018 [facility] CHEM PANEL Creatinine Lvl 1.35 0.50 - 1.40 01/24/2018 [facility] CHEM PANEL Potassium Lvl 3.0 3.5 - 5.1 01/24/2018 Result Comment: Critical Result(s) called to georgina johnson 01/24/2018 06:30 byjw. Read back OK. [facility] CHEM PANEL Glucose Lvl 87 70 - 99 01/24/2018 [facility] CHEM PANEL AGAP 11.0 10.0 - 20.0 01/24/2018 [facility] CHEM PANEL Calcium Lvl 9.4 8.5 - 10.5 01/24/2018 [facility] CHEM PANEL Albumin Lvl 2.2 3.5 - 5.0 01/23/2018 [facility] CHEM PANEL Phosphorus 1.6 2.5 - 4.5 01/23/2018 [facility] CHEM PANEL Magnesium Lvl 1.7 1.8 - 2.4 01/22/2018 [facility] CHEM PANEL Alk Phos 108 39 - 136 01/22/2018 [facility] CHEM PANEL Bili Total 0.4 0.2 - 1.3 01/22/2018 [facility] CHEM PANEL A/G Ratio 0.6 0.7 - 1.6 01/22/2018 [facility] CHEM PANEL ALT 11 0 - 65 01/22/2018 [facility] CHEM PANEL AST 17 0 - 37 01/22/2018 [facility] CHEM PANEL Globulin 3.6 2.7 - 4.2 01/22/2018 [facility] CHEM PANEL B/C Ratio 4 6 - 25 01/22/2018 [facility] CHEM PANEL Total Protein 5.9 6.4 - 8.4 01/22/2018 [facility] CHEM PANEL Albumin Lvl 2.3 3.5 - 5.0 01/22/2018 [facility] CHEM PANEL Lipase Lvl 39 73 - 393 01/22/2018 [facility] PARATHYROID PROFILE PTH Intact 9.0 18.4 - 80.1 01/22/2018 [facility] TOXICOLOGY Amikacin Lvl 5.9 01/22/2018 [facility] HEMATOLOGY Bands 14.0 0.0 - 11.0 01/21/2018 [facility] HEMATOLOGY Plt Morph Normal (01/21/18 1:32 PM) 01/21/2018 [facility] HEMATOLOGY RBC Morph Normal (01/21/18 1:32 PM) 01/21/2018 [facility] ANEMIA STUDY Folate Lvl 3.3 >=3.0 ng/mL 01/21/2018 [facility] ANEMIA STUDY Vitamin B12 Lvl >2000 254 - 1320 01/21/2018 [facility] ANEMIA STUDY Iron 41 45 - 160 01/21/2018 [facility] ANEMIA STUDY TIBC 166 228 - 428 01/21/2018 [facility] ANEMIA STUDY % Satur Fe 25 12 - 57 01/21/2018 [facility] ANEMIA STUDY UIBC 125 110 - 370 01/21/2018 [facility] ANEMIA STUDY Ferritin Lvl 589 22 - 275 01/21/2018 [facility] CHEM PANEL B/C Ratio 3 6 - 25 01/21/2018 [facility] CHEM PANEL Total Protein 6.1 6.4 - 8.4 01/21/2018 [facility] CHEM PANEL Bili Total 0.9 0.2 - 1.3 01/21/2018 [facility] CHEM PANEL Alk Phos 93 39 - 136 01/21/2018 [facility] CHEM PANEL Globulin 3.7 2.7 - 4.2 01/21/2018 [facility] CHEM PANEL Albumin Lvl 2.4 3.5 - 5.0 01/21/2018 [facility] CHEM PANEL AST 17 0 - 37 01/21/2018 [facility] CHEM PANEL ALT 8 0 - 65 01/21/2018 [facility] CHEM PANEL A/G Ratio 0.6 0.7 - 1.6 01/21/2018 [facility] CHEM PANEL Lipase Lvl 31 73 - 393 01/21/2018 [facility] HEMATOLOGY Fibrinogen Lvl 404 230 - 510 01/21/2018 [facility] HEMATOLOGY Retic Auto 0.7 0.5 - 1.5 01/21/2018 [facility] HEMATOLOGY Heparin Ab(GARRISON) Negative 1 (01/20/18 3:50 PM) Negative 01/20/2018 Result Comment: This assay detects heparin antibodies of IgG isotype. Antibodies of other isotypes have been reported to cause heparin-induced thrombocytopenia. Therefore, if there is a strong clinical suspicion of HIT, additional study with a serotonin release assay is recommented. [facility] HEMATOLOGY Pat Od Value 0.209 01/20/2018 [facility] HEMATOLOGY Pos CO Value 0.400 01/20/2018 [facility] IMMUNOLOGY Haptoglobin 132 16 - 200 01/20/2018 [facility] BLOOD BANK RESULTS RBC product Product available 1 (01/20/18 6:59 AM) 01/20/2018 Result Comment: 01/20/2018 07:52 [id number]
Called to Jose E Daniels at 01/20/2018 07:46 by Ross Meredith. [facility] ANEMIA STUDY TRANSFERRIN 72 212 - 360 01/20/2018 [facility] CHEM PANEL Lipase Lvl 41 73 - 393 01/20/2018 [facility] CHEM PANEL Bili Total 0.3 0.2 - 1.3 01/20/2018 [facility] CHEM PANEL Bili Direct 0.1 0.0 - 0.3 01/20/2018 [facility] CHEM PANEL Globulin 3.2 2.7 - 4.2 01/20/2018 [facility] CHEM PANEL A/G Ratio 0.8 0.7 - 1.6 01/20/2018 [facility] CHEM PANEL Bili Indirect 0.2 0.0 - 1.0 01/20/2018 [facility] CHEM PANEL Total Protein 5.7 6.4 - 8.4 01/20/2018 [facility] CHEM PANEL ALT 9 0 - 65 01/20/2018 [facility] CHEM PANEL AST 19 0 - 37 01/20/2018 [facility] CHEM PANEL Alk Phos 69 39 - 136 01/20/2018 [facility] CARDIAC ENZYMES BNP 815 <=100 pg/mL 01/19/2018 [facility] CHEM PANEL Amylase Lvl 14 25 - 115 01/19/2018 [facility] CHEM PANEL Uric Acid 3.0 3.8 - 8.0 01/19/2018 [facility] CHEM PANEL Vitamin D, 25-OH, Total 9.4 30.0 - 100.0 01/19/2018 [facility] CHEM PANEL VITAMIN B1 (THIAMINE) WHOLE BLOOD 79.2 66.5 - 200.0 01/19/2018 Result Comment:
This test was developed and its performance characteristics
determined by [facility]. It has not been cleared or
approved by the Food and Drug Administration.
Performed At: [facility]
[address] [place] [address] [phone]
Jennifer Vinson MD Ph:[phone] [facility] HEMATOLOGY Sed Rate 81 0 - 15 01/19/2018 [facility] IMMUNOLOGY Homocyst Tot 9.2 3.7 - 13.9 01/19/2018 [facility] IMMUNOLOGY Hep Bs Ag Negative *NA* (01/19/18 1:38 PM) Negative 01/19/2018 [facility] LIPIDS HDL 18 >=61 mg/dL 01/19/2018 [facility] LIPIDS Chol 84 <=199 mg/dL 01/19/2018 [facility] LIPIDS Trig 108 <=149 mg/dL 01/19/2018 [facility] LIPIDS CHD Risk 4.67 4.00 - 7.30 01/19/2018 [facility] LIPIDS LDL (Calculated) 44 <=99 mg/dL 01/19/2018 [facility] LIPIDS VLDL 22 01/19/2018 [facility] SPECIAL CHEMISTRY Hgb A1C 5.9 <=5.6 % 01/19/2018 [facility] BLOOD BANK RESULTS Antibody Scrn Negative (01/17/18 3:39 PM) 01/17/2018 [facility] BLOOD BANK RESULTS ABO/Rh O POS 01/17/2018 [facility] BLOOD BANK RESULTS RBC product Product available (01/17/18 11:38 AM) 01/17/2018 [facility] ANEMIA STUDY Ferritin Lvl 520 22 - 275 01/15/2018 [facility] CARDIAC ENZYMES Total CK 57 12 - 191 01/15/2018 [facility] CARDIAC ENZYMES Troponin-I <0.02 0.00 - 0.40 01/15/2018 [facility] CARDIAC ENZYMES CK MB Index 2.5 0.0 - 2.5 01/15/2018 [facility] CARDIAC ENZYMES CK MB 1.9 0.5 - 3.6 01/15/2018 [facility] CARDIAC ENZYMES Total CK 77 12 - 191 01/15/2018 [facility] CARDIAC ENZYMES Troponin-I 0.02 0.00 - 0.40 01/15/2018 [facility] BLOOD BANK RESULTS Antibody Scrn Negative (01/08/18 5:14 PM) 01/08/2018 [facility] BLOOD BANK RESULTS ABO/Rh O POS 01/08/2018 [facility] HEMATOLOGY INR 1.07 0.85 - 1.17 01/08/2018 [facility] HEMATOLOGY PT 13.9 12.0 - 14.7 01/08/2018 [facility] HEMATOLOGY Plt Morph Normal (01/08/18 4:02 AM) 01/08/2018 [facility] HEMATOLOGY RBC Morph Normal (01/08/18 4:02 AM) 01/08/2018 [facility] Culture: Anaerobic No Anaerobes Isolated 01/04/2018 [facility] Gram Stain Report Rare WBC's No Organisms Seen 01/04/2018 [facility] Culture: Wound/Abscess w/Gram Stain Few Enterobacter cloacae Few Acinetobacter baumannii Refer To Culture # [id number] collected 01-03-18 For Identification And Susceptibility Results 01/04/2018 [facility] Culture: Anaerobic No Anaerobes Isolated 01/04/2018 [facility] Gram Stain Report No Wbc'S Or Organisms Seen 01/04/2018 [facility] Culture: Wound/Abscess w/Gram Stain Many Enterobacter cloacae Many Acinetobacter baumannii Refer To Culture # [id number] collected 01-03-18 For Identification And Susceptibility Results 01/04/2018 [facility] SPECIAL CHEMISTRY Hgb A1C 6.9 <=5.6 % 01/04/2018 [facility] AMPICILLIN:SUSC:PT:ISOLATE:ORDQN:FERNANDO Gram Stain Report No Wbc'S Or Organisms Seen 01/04/2018 [facility] AMPICILLIN:SUSC:PT:ISOLATE:ORDQN:FERNANDO Culture: Wound/Abscess w/Gram Stain Rare Enterobacter cloacae Rare Acinetobacter baumannii Refer To Culture # [id number] collected: 01/03/2018 For Susceptibility Results . Rare Vancomycin Resistant Enterococcus Few Staphylococcus Species, Not S. aureus 01/04/2018 [facility] AMPICILLIN:SUSC:PT:ISOLATE:ORDQN:FERNANDO Vancomycin Resistant Enterococcus Vancomycin Resistant Enterococcus 01/04/2018 [facility] LEVOFLOXACIN:SUSC:PT:ISOLATE:ORDQN:FERNANDO Gram Stain Report No Wbc'S Or Organisms Seen 01/04/2018 [facility] LEVOFLOXACIN:SUSC:PT:ISOLATE:ORDQN:FERNANDO Culture: Wound/Abscess w/Gram Stain Many Acinetobacter baumannii , Multi-drug Resistant Organism Moderate Enterobacter cloacae , Multi-drug Resistant Organism 01/04/2018 [facility] LEVOFLOXACIN:SUSC:PT:ISOLATE:ORDQN:FERNANDO Enterobacter cloacae Enterobacter cloacae 01/04/2018 [facility] LEVOFLOXACIN:SUSC:PT:ISOLATE:ORDQN:FERNANDO Acinetobacter baumannii Acinetobacter baumannii 01/04/2018 [facility] IMMUNOLOGY Hep Bs Ag Negative *NA* (01/03/18 9:10 AM) Negative 01/03/2018 [facility] CHEM PANEL B/C Ratio 8 6 - 25 01/03/2018 [facility] CARDIAC ENZYMES CK MB Index 8.4 0.0 - 2.5 01/02/2018 [facility] CARDIAC ENZYMES CK MB Index 9.3 0.0 - 2.5 01/02/2018 [facility] CARDIAC ENZYMES Troponin-I <0.02 0.00 - 0.40 01/02/2018 [facility] CARDIAC ENZYMES CK MB 5.0 0.5 - 3.6 01/02/2018 [facility] CARDIAC ENZYMES Total CK 54 12 - 191 01/02/2018 [facility] CARDIAC ENZYMES BNP 1078 <=100 pg/mL 01/02/2018 [facility] CARDIAC ENZYMES CK MB 4.9 0.5 - 3.6 01/02/2018 [facility] CARDIAC ENZYMES Troponin-I <0.02 0.00 - 0.40 01/02/2018 [facility] CARDIAC ENZYMES Total CK 58 12 - 191 01/02/2018 [facility] CHEM PANEL Lactic Acid Lvl 1.2 0.5 - 2.2 01/02/2018 [facility] HEMATOLOGY PTT 33.7 22.9 - 35.8 01/02/2018 [facility] HEMATOLOGY INR 1.11 0.85 - 1.17 01/02/2018 [facility] HEMATOLOGY PT 14.3 12.0 - 14.7 01/02/2018 [facility] ELECTROLYTES AGAP 13.1 10.0 - 20.0 12/21/2017 [facility] ELECTROLYTES Creatinine Lvl 4.75 0.50 - 1.40 12/21/2017 [facility] ELECTROLYTES BUN 53 7 - 22 12/21/2017 [facility] ELECTROLYTES Glucose Lvl 156 70 - 99 12/21/2017 [facility] ELECTROLYTES Sodium Lvl 133 135 - 145 12/21/2017 [facility] ELECTROLYTES Potassium Lvl 4.1 3.5 - 5.1 12/21/2017 [facility] ELECTROLYTES eGFR 12 12/21/2017 Result Comment: The eGFR is calculated using the CKD-EPI formula. In most young, healthy individuals the eGFR will be >90 mL/min/1.73m2. The eGFR declines with age. An eGFR of 60-89 may be normal in some populations, particularly the elderly, for whom the CKD-EPI formula has not been extensively validated. Use of the eGFR is not recommended in the following populations:

Individuals with unstable creatinine concentrations, including patients and those with serious co-morbid conditions.

Patients with extremes in muscle mass or diet.

The data above are obtained from the National Kidney Disease Education Program (NKDEP) which additionally recommends that when the eGFR is used in patients with extremes of body mass index for purposes of drug dosing, the eGFR should be multiplied by the estimated BMI. [facility] ELECTROLYTES Calcium Lvl 8.1 8.5 - 10.5 12/21/2017 [facility] ELECTROLYTES CO2 27 24 - 32 12/21/2017 [facility] ELECTROLYTES Chloride Lvl 97 95 - 109 12/21/2017 [facility] HEMATOLOGY Basophils # 0.1 0.0 - 0.2 12/21/2017 [facility] HEMATOLOGY Monocytes # 2.5 0.0 - 0.8 12/21/2017 [facility] HEMATOLOGY Segs-Bands # 9.2 1.5 - 8.1 12/21/2017 [facility] HEMATOLOGY Basophils 0.8 0.0 - 1.0 12/21/2017 [facility] HEMATOLOGY Segs 66.2 45.0 - 75.0 12/21/2017 [facility] Lymphocytes 11.9 20.0 - 40.0 12/21/2017 [facility] HEMATOLOGY Eosinophils 2.8 0.0 - 4.0 12/21/2017 [facility] Monocytes 18.3 2.0 - 12.0 12/21/2017 [facility] Eosinophils # 0.4 0.0 - 0.5 12/21/2017 [facility] Lymphocytes # 1.7 1.0 - 5.5 12/21/2017 [facility] MCHC 32.7 32.0 - 36.0 12/21/2017 [facility] RDW 16.1 11.5 - 14.5 12/21/2017 [facility] MCV 87.1 80.0 - 94.0 12/21/2017 [facility] Hct 31.0 42.0 - 54.0 12/21/2017 [facility] Platelet 215 133 - 450 12/21/2017 [facility] MCH 28.5 27.0 - 31.0 12/21/2017 [facility] MPV 8.4 7.4 - 10.4 12/21/2017 [facility] WBC 13.9 3.7 - 10.4 12/21/2017 [facility] Hgb 10.1 14.0 - 18.0 12/21/2017 [facility] RBC 3.55 4.70 - 6.10 12/21/2017 [facility] RDW 15.2 11.5 - 14.5 12/20/2017 [facility] Platelet 218 133 - 450 12/20/2017 [facility] MPV 8.3 7.4 - 10.4 12/20/2017 [facility] Hgb 10.2 14.0 - 18.0 12/20/2017 [facility] Hct 30.9 42.0 - 54.0 12/20/2017 [facility] MCH 28.5 27.0 - 31.0 12/20/2017 [facility] MCHC 32.9 32.0 - 36.0 12/20/2017 [facility] MCV 86.7 80.0 - 94.0 12/20/2017 [facility] WBC 17.7 3.7 - 10.4 12/20/2017 [facility] RBC 3.56 4.70 - 6.10 12/20/2017 [facility] HEMATOLOGY Eosinophils # 0.3 0.0 - 0.5 12/20/2017 [facility] HEMATOLOGY Basophils # 0.1 0.0 - 0.2 12/20/2017 [facility] HEMATOLOGY Monocytes 17.5 2.0 - 12.0 12/20/2017 [facility] HEMATOLOGY Segs 71.8 45.0 - 75.0 12/20/2017 [facility] Lymphocytes 8.1 20.0 - 40.0 12/20/2017 [facility] Eosinophils 1.9 0.0 - 4.0 12/20/2017 [facility] HEMATOLOGY Basophils 0.7 0.0 - 1.0 12/20/2017 [facility] Monocytes # 3.1 0.0 - 0.8 12/20/2017 [facility] Segs-Bands # 12.7 1.5 - 8.1 12/20/2017 [facility] Lymphocytes # 1.4 1.0 - 5.5 12/20/2017 [facility] ELECTROLYTES AGAP 13.2 10.0 - 20.0 12/19/2017 [facility] ELECTROLYTES eGFR 17 12/19/2017 Result Comment: The eGFR is calculated using the CKD-EPI formula. In most young, healthy individuals the eGFR will be >90 mL/min/1.73m2. The eGFR declines with age. An eGFR of 60-89 may be normal in some populations, particularly the elderly, for whom the CKD-EPI formula has not been extensively validated. Use of the eGFR is not recommended in the following populations:

Individuals with unstable creatinine concentrations, including patients and those with serious co-morbid conditions.

Patients with extremes in muscle mass or diet.

The data above are obtained from the National Kidney Disease Education Program (NKDEP) which additionally recommends that when the eGFR is used in patients with extremes of body mass index for purposes of drug dosing, the eGFR should be multiplied by the estimated BMI. [facility] ELECTROLYTES Calcium Lvl 7.7 8.5 - 10.5 12/19/2017 [facility] ELECTROLYTES CO2 29 24 - 32 12/19/2017 [facility] ELECTROLYTES BUN 23 7 - 22 12/19/2017 [facility] ELECTROLYTES Glucose Lvl 117 70 - 99 12/19/2017 [facility] ELECTROLYTES Creatinine Lvl 3.69 0.50 - 1.40 12/19/2017 [facility] ELECTROLYTES Chloride Lvl 98 95 - 109 12/19/2017 [facility] ELECTROLYTES Sodium Lvl 137 135 - 145 12/19/2017 [facility] ELECTROLYTES Potassium Lvl 3.2 3.5 - 5.1 12/19/2017 [facility] HEMATOLOGY Eosinophils 2.0 0.0 - 4.0 12/19/2017 [facility] HEMATOLOGY Segs-Bands # 12.8 1.5 - 8.1 12/19/2017 [facility] HEMATOLOGY Basophils 0.7 0.0 - 1.0 12/19/2017 [facility] HEMATOLOGY Eosinophils # 0.3 0.0 - 0.5 12/19/2017 [facility] Monocytes # 1.5 0.0 - 0.8 12/19/2017 [facility] Lymphocytes # 0.7 1.0 - 5.5 12/19/2017 [facility] Basophils # 0.1 0.0 - 0.2 12/19/2017 [facility] HEMATOLOGY Segs 82.8 45.0 - 75.0 12/19/2017 [facility] Lymphocytes 4.8 20.0 - 40.0 12/19/2017 [facility] HEMATOLOGY Monocytes 9.7 2.0 - 12.0 12/19/2017 [facility] Platelet 215 133 - 450 12/19/2017 [facility] RDW 15.5 11.5 - 14.5 12/19/2017 [facility] MPV 8.1 7.4 - 10.4 12/19/2017 [facility] RBC 3.17 4.70 - 6.10 12/19/2017 [facility] HEMATOLOGY WBC 15.5 3.7 - 10.4 12/19/2017 [facility] HEMATOLOGY MCHC 33.5 32.0 - 36.0 12/19/2017 [facility] HEMATOLOGY MCH 29.1 27.0 - 31.0 12/19/2017 [facility] HEMATOLOGY Hgb 9.2 14.0 - 18.0 12/19/2017 [facility] HEMATOLOGY Hct 27.5 42.0 - 54.0 12/19/2017 [facility] HEMATOLOGY MCV 86.8 80.0 - 94.0 12/19/2017 [facility] ELECTROLYTES Potassium Lvl 3.7 3.5 - 5.1 12/18/2017 [facility] TOXICOLOGY Vanco Lvl 16.3 12/18/2017 [facility] CHEM PANEL Magnesium Lvl 2.1 1.8 - 2.4 12/17/2017 [facility] CHEM PANEL eGFR 17 12/17/2017 Result Comment: The eGFR is calculated using the CKD-EPI formula. In most young, healthy individuals the eGFR will be >90 mL/min/1.73m2. The eGFR declines with age. An eGFR of 60-89 may be normal in some populations, particularly the elderly, for whom the CKD-EPI formula has not been extensively validated. Use of the eGFR is not recommended in the following populations:

Individuals with unstable creatinine concentrations, including patients and those with serious co-morbid conditions.

Patients with extremes in muscle mass or diet.

The data above are obtained from the National Kidney Disease Education Program (NKDEP) which additionally recommends that when the eGFR is used in patients with extremes of body mass index for purposes of drug dosing, the eGFR should be multiplied by the estimated BMI. [facility] CHEM PANEL Glucose Lvl 189 70 - 99 12/17/2017 [facility] CHEM PANEL Creatinine Lvl 3.53 0.50 - 1.40 12/17/2017 [facility] CHEM PANEL Sodium Lvl 134 135 - 145 12/17/2017 [facility] CHEM PANEL BUN 19 7 - 22 12/17/2017 [facility] CHEM PANEL CO2 28 24 - 32 12/17/2017 [facility] CHEM PANEL Chloride Lvl 98 95 - 109 12/17/2017 [facility] CHEM PANEL Calcium Lvl 7.5 8.5 - 10.5 12/17/2017 [facility] CHEM PANEL AGAP 12.1 10.0 - 20.0 12/17/2017 [facility] CHEM PANEL Magnesium Lvl 2.0 1.8 - 2.4 12/15/2017 [facility] CHEM PANEL Bili Total 0.7 0.2 - 1.3 12/15/2017 [facility] CHEM PANEL Alk Phos 105 39 - 136 12/15/2017 [facility] CHEM PANEL AST 7 0 - 37 12/15/2017 [facility] CHEM PANEL ALT 10 0 - 65 12/15/2017 [facility] CHEM PANEL Globulin 4.6 2.7 - 4.2 12/15/2017 [facility] CHEM PANEL A/G Ratio 0.5 0.7 - 1.6 12/15/2017 [facility] CHEM PANEL B/C Ratio 7 6 - 25 12/15/2017 [facility] CHEM PANEL Albumin Lvl 2.2 3.5 - 5.0 12/15/2017 [facility] CHEM PANEL Total Protein 6.8 6.4 - 8.4 12/15/2017 [facility] TOXICOLOGY Vanco Lvl 12.6 12/15/2017 [facility] ENDOCRINOLOGY S Preg Negative *NA* (12/14/17 4:55 PM) Negative 12/14/2017 [facility] HEMATOLOGY INR 1.15 0.85 - 1.17 12/14/2017 [facility] HEMATOLOGY PT 14.7 12.0 - 14.7 12/14/2017 [facility] HEMATOLOGY PTT 32.9 22.9 - 35.8 12/14/2017 [facility] BLOOD BANK RESULTS Antibody Scrn Negative (12/14/17 9:05 AM) 12/14/2017 [facility] BLOOD BANK RESULTS ABO/Rh O POS 12/14/2017 [facility] BLOOD BANK RESULTS RBC product Product available 1 (12/14/17 7:12 AM) 12/14/2017 Result Comment: 12/14/2017 11:11 [id number]
Spoke to Ross Murphy. 12/14/2017 11:11 MORSE [facility] CHEM PANEL Albumin Lvl 2.0 3.5 - 5.0 12/14/2017 [facility] CHEM PANEL B/C Ratio 9 6 - 25 12/14/2017 [facility] CHEM PANEL Total Protein 6.2 6.4 - 8.4 12/14/2017 [facility] CHEM PANEL Bili Total 0.4 0.2 - 1.3 12/14/2017 [facility] CHEM PANEL ALT 11 0 - 65 12/14/2017 [facility] CHEM PANEL AST 6 0 - 37 12/14/2017 [facility] CHEM PANEL A/G Ratio 0.5 0.7 - 1.6 12/14/2017 [facility] CHEM PANEL Alk Phos 95 39 - 136 12/14/2017 [facility] CHEM PANEL Globulin 4.2 2.7 - 4.2 12/14/2017 [facility] CHEM PANEL Phosphorus 3.8 2.5 - 4.5 12/13/2017 [facility] CHEM PANEL Magnesium Lvl 1.6 1.8 - 2.4 12/13/2017 [facility] CHEM PANEL ALT 13 0 - 65 12/13/2017 [facility] CHEM PANEL Alk Phos 98 39 - 136 12/13/2017 [facility] CHEM PANEL Bili Total 0.5 0.2 - 1.3 12/13/2017 [facility] CHEM PANEL AST 10 0 - 37 12/13/2017 [facility] CHEM PANEL Total Protein 6.5 6.4 - 8.4 12/13/2017 [facility] CHEM PANEL B/C Ratio 10 6 - 25 12/13/2017 [facility] CHEM PANEL Globulin 4.2 2.7 - 4.2 12/13/2017 [facility] CHEM PANEL Albumin Lvl 2.3 3.5 - 5.0 12/13/2017 [facility] CHEM PANEL A/G Ratio 0.5 0.7 - 1.6 12/13/2017 [facility] IMMUNOLOGY Hep Bs Ag Negative *NA* (12/12/17 11:30 PM) Negative 12/13/2017 [facility] CHEM PANEL Lactic Acid Lvl 1.2 0.5 - 2.2 12/12/2017 [facility] CARDIAC ENZYMES Troponin-I <0.02 0.00 - 0.40 12/12/2017 [facility] CARDIAC ENZYMES Total CK 81 12 - 191 12/12/2017 [facility] CARDIAC ENZYMES BNP 1591 <=100 pg/mL 12/12/2017 [facility] CHEM PANEL Phosphorus 6.6 2.5 - 4.5 12/12/2017 [facility] CHEM PANEL Bili Indirect 0.3 0.0 - 1.0 12/12/2017 [facility] CHEM PANEL Bili Direct 0.2 0.0 - 0.3 12/12/2017 [facility] HEMATOLOGY INR 1.17 0.85 - 1.17 12/12/2017 [facility] HEMATOLOGY PT 15.0 12.0 - 14.7 12/12/2017 [facility] HEMATOLOGY PTT 33.7 22.9 - 35.8 12/12/2017 [facility] Blood sugar Blood sugar 170 11/30/2017 [facility]: [facility] - [facility] Blood sugar Blood sugar 170 11/30/2017 [facility]: [facility] Blood sugar Blood sugar 99 11/30/2017 [facility]: [facility] Blood sugar Blood sugar 99 11/30/2017 [facility]: [facility] Blood sugar Blood sugar 135 11/30/2017 [facility]: [facility] Blood sugar Blood sugar 135 11/30/2017 [facility]: [facility] Blood sugar Blood sugar 243 11/29/2017 [facility]: [facility] Blood sugar Blood sugar 243 11/29/2017 [facility]: [facility] [place] Blood sugar Blood sugar 156 11/29/2017 [facility]: [facility] [place] Blood sugar Blood sugar 156 11/29/2017 [facility]: [facility] [place] Blood sugar Blood sugar 180 11/29/2017 [facility]: [facility] [place] Blood sugar Blood sugar 180 11/29/2017 [facility]: [facility] [place] Blood sugar Blood sugar 141 11/28/2017 [facility]: [facility] [place] Blood sugar Blood sugar 141 11/28/2017 [facility]: [facility] [place] Blood sugar Blood sugar 79 11/28/2017 [facility]: [facility] [place] Blood sugar Blood sugar 79 11/28/2017 [facility]: [facility] Blood sugar Blood sugar 190 11/27/2017 [facility]: [facility] [place] Blood sugar Blood sugar 190 11/27/2017 [facility]: [facility] Blood sugar Blood sugar 108 11/27/2017 [facility]: [facility] Blood sugar Blood sugar 108 11/27/2017 [facility]: [facility] [place] Blood sugar Blood sugar 139 11/27/2017 [facility]: [facility] [place] Blood sugar Blood sugar 139 11/27/2017 [facility]: [facility] [place] Blood sugar Blood sugar 134 11/26/2017 [facility]: [facility] Blood sugar Blood sugar 134 11/26/2017 [facility]: [facility] [place] Blood sugar Blood sugar 134 11/26/2017 [facility]: [facility] [place] Blood sugar Blood sugar 134 11/26/2017 [facility]: [facility] [place] Blood sugar Blood sugar 115 11/26/2017 [facility]: [facility] [place] Blood sugar Blood sugar 115 11/26/2017 [facility]: [facility] [place] Blood sugar Blood sugar 167 11/26/2017 [facility]: [facility] [place] Blood sugar Blood sugar 167 11/26/2017 [facility]: [facility] [place] Blood sugar Blood sugar 154 11/25/2017 [facility]: [facility] [place] Blood sugar Blood sugar 154 11/25/2017 [facility]: [facility] [place] Blood sugar Blood sugar 107 11/25/2017 [facility]: [facility] [place] Blood sugar Blood sugar 107 11/25/2017 [facility]: [facility] [place] Blood sugar Blood sugar 132 11/25/2017 [facility]: [facility] [place] Blood sugar Blood sugar 132 11/25/2017 [facility]: [facility] [place] Blood sugar Blood sugar 170 11/25/2017 [facility]: [facility] [place] Blood sugar Blood sugar 150 11/25/2017 [facility]: [facility] [place] Blood sugar Blood sugar 170 11/25/2017 [facility]: [facility] [place] Blood sugar Blood sugar 150 11/25/2017 [facility]: [facility] [place] Blood sugar Blood sugar 123 11/24/2017 [facility]: [facility] [place] Blood sugar Blood sugar 123 11/24/2017 [facility]: [facility] [place] Blood sugar Blood sugar 220 10/11/2017 [facility]: [facility] [place] Blood sugar Blood sugar 103 10/11/2017 [facility]: [facility] [place] Blood sugar Blood sugar 94 10/11/2017 [facility]: [facility] [place] Blood sugar Blood sugar 259 10/11/2017 [facility]: [facility] [place] Blood sugar Blood sugar 259 10/11/2017 [facility]: [facility] [place] Blood sugar Blood sugar 174 10/10/2017 [facility]: [facility] [place] Blood sugar Blood sugar 193 10/10/2017 [facility]: [facility] [place] Blood sugar Blood sugar 209 10/10/2017 [facility]: [facility] [place] Blood sugar Blood sugar 209 10/10/2017 [facility]: [facility] [place] Blood sugar Blood sugar 218 10/09/2017 [facility]: [facility] [place] Blood sugar Blood sugar 197 10/09/2017 [facility]: [facility] [place] Blood sugar Blood sugar 143 10/09/2017 [facility]: [facility] [place] Blood sugar Blood sugar 143 10/09/2017 [facility]: [facility] [place] Blood sugar Blood sugar 109 10/09/2017 [facility]: [facility] [place] Blood sugar Blood sugar 109 10/09/2017 [facility]: [facility] [place] Blood sugar Blood sugar 166 10/08/2017 SN[facility]: [facility] [place] Blood sugar Blood sugar 153 10/08/2017 [facility]: [facility] [place] Blood sugar Blood sugar 122 10/08/2017 SN[facility]: [facility] [place] Blood sugar Blood sugar 122 10/08/2017 [facility]: [facility] [place] Blood sugar Blood sugar 117 10/07/2017 [facility]: [facility] [place] Blood sugar Blood sugar 143 10/07/2017 [facility]: [facility] [place] Blood sugar Blood sugar 211 10/07/2017 [facility]: [facility] [place] Blood sugar Blood sugar 211 10/07/2017 [facility]: [facility] [place] Blood sugar Blood sugar 294 10/06/2017 [facility]: [facility] [place] Blood sugar Blood sugar 194 10/06/2017 [facility]: [facility] [place] Blood sugar Blood sugar 110 10/06/2017 [facility]: [facility] [place] Blood sugar Blood sugar 110 10/06/2017 [facility]: [facility] [place] Blood sugar Blood sugar 150 10/06/2017 [facility]: [facility] [place] Blood sugar Blood sugar 99 10/06/2017 [facility]: [facility] [place] Blood sugar Blood sugar 99 10/06/2017 [facility]: [facility] [place] Blood sugar Blood sugar 167 10/05/2017 [facility]: [facility] [place] Blood sugar Blood sugar 167 10/05/2017 [facility]: [facility] [place] Blood sugar Blood sugar 189 10/05/2017 [facility]: [facility] [place] Blood sugar Blood sugar 189 10/05/2017 [facility]: [facility] [place] Blood sugar Blood sugar 252 10/04/2017 [facility]: [facility] [place] Blood sugar Blood sugar 141 10/04/2017 [facility]: [facility] [place] Blood sugar Blood sugar 219 10/04/2017 [facility]: [facility] [place] Blood sugar Blood sugar 219 10/04/2017 [facility]: [facility] [place] Blood sugar Blood sugar 161 10/04/2017 [facility]: [facility] [place] Blood sugar Blood sugar 167 10/04/2017 [facility]: [facility] [place] Blood sugar Blood sugar 73 10/03/2017 SN[facility]: [facility] [place] Blood sugar Blood sugar 209 10/03/2017 [facility]: [facility] [place] Blood sugar Blood sugar 209 10/03/2017 [facility]: [facility] [place] Blood sugar Blood sugar 272 10/03/2017 [facility]: [facility] [place] Blood sugar Blood sugar 272 10/03/2017 [facility]: [facility] [place] Blood sugar Blood sugar 243 10/02/2017 [facility]: [facility] [place] Blood sugar Blood sugar 213 10/02/2017 [facility]: [facility] [place] Blood sugar Blood sugar 241 10/02/2017 [facility]: [facility] [place] Blood sugar Blood sugar 198 10/02/2017 [facility]: [facility] [place] Blood sugar Blood sugar 175 10/01/2017 [facility]: [facility] [place] Blood sugar Blood sugar 122 10/01/2017 [facility]: [facility] [place] Blood sugar Blood sugar 99 10/01/2017 [facility]: [facility] [place] Blood sugar Blood sugar 218 10/01/2017 [facility]: [facility] [place] Blood sugar Blood sugar 94 09/30/2017 [facility]: [facility] Blood sugar Blood sugar 145 09/30/2017 [facility]: [facility] Blood sugar Blood sugar 222 09/30/2017 [facility]: [facility] Blood sugar Blood sugar 173 09/29/2017 [facility]: [facility] Blood sugar Blood sugar 143 09/29/2017 [facility]: [facility] Blood sugar Blood sugar 174 09/29/2017 [facility]: [facility] Blood sugar Blood sugar 111 09/28/2017 [facility]: [facility] Blood sugar Blood sugar 215 09/28/2017 [facility]: [facility] GLUCOSE POC Glucose POC 118 74 - 106 07/12/2017 High [facility] GLUCOSE POC Lab Interpretation Abnormal 07/12/2017 [facility] BASIC METABOLIC PANEL CO2 27 21 - 32 07/12/2017 [facility] BASIC METABOLIC PANEL Chloride 103 98 - 107 07/12/2017 [facility] BASIC METABOLIC PANEL Potassium 4.1 3.5 - 5.1 07/12/2017 [facility] BASIC METABOLIC PANEL Sodium 139 136 - 145 07/12/2017 [facility] BASIC METABOLIC PANEL Glucose 131 70 - 99 07/12/2017 High [facility] BASIC METABOLIC PANEL Urea Nitrogen 81 7 - 18 07/12/2017 High [facility] BASIC METABOLIC PANEL Creatinine 3.91 0.6 - 1.3 07/12/2017 High [facility] BASIC METABOLIC PANEL Anion Gap 9 07/12/2017 [facility] BASIC METABOLIC PANEL Calcium 8.0 8.5 - 10.2 07/12/2017 Low [facility] BASIC METABOLIC PANEL GFR, Estimated 16 mL/min/1.73 m2 07/12/2017 [facility] BASIC METABOLIC PANEL GFR, Estim, Afr-Am 19 mL/min/1.73 m2 07/12/2017 [facility] BASIC METABOLIC PANEL Lab Interpretation Abnormal 07/12/2017 [facility] CBC/DIFF WBC 9.9 4.5 - 12 07/11/2017 [facility] CBC/DIFF RBC 3.82 M/uL 4.60 - 6.20 07/11/2017 Low [facility] CBC/DIFF Hemoglobin 11.3 14 - 18 07/11/2017 Low [facility] CBC/DIFF Hematocrit 36.6 40 - 54 07/11/2017 [facility] CBC/DIFF MCV 96 82 - 92 07/11/[address] [facility] CBC/DIFF MCH 29.6 27 - 31 07/11/2017 [facility] CBC/DIFF MCHC 30.9 32 - 36 07/11/2017 [facility] CBC/DIFF RDW 47.1 35.1 - 43.9 07/11/[address] [facility] CBC/DIFF Platelet 179 150 - 400 07/11/2017 [facility] CBC/DIFF Mean Platelet Volume 11.2 9.4 - 12.4 07/11/2017 [facility] CBC/DIFF Percent NRBC 0.0 07/11/2017 [facility] CBC/DIFF Absolute NRBC 0.00 07/11/2017 [facility] CBC/DIFF Neutrophil 70.9 34 - 67.9 07/11/[address] [facility] CBC/DIFF Lymphocyte 11.8 21.8 - 50 07/11/2017 [facility] CBC/DIFF Monocyte 14.9 5.3 - 12 07/11/[address] [facility] CBC/DIFF Eosinophil 1.6 0.8 - 5 07/11/2017 [facility] CBC/DIFF Basophil 0.3 0.2 - 1.2 07/11/2017 [facility] CBC/DIFF Pct Immat Gran 0.5 0.0 - 0.5 07/11/2017 [facility] CBC/DIFF Neutrophil, Abs 7.03 1.78 - 5.36 07/11/[address] [facility] CBC/DIFF Lymphocyte, Abs 1.17 1.32 - 3.57 07/11/2017 [facility] CBC/DIFF Monocyte, Abs 1.48 0.3 - 0.82 07/11/[address] [facility] CBC/DIFF Eosinophil, Abs 0.16 0.04 - 0.54 07/11/2017 [facility] CBC/DIFF Basophil, Abs 0.03 0.01 - 0.08 07/11/2017 [facility] CBC/DIFF Absol Immat Gran 0.05 0 - 0.03 07/11/[address] [facility] CBC/DIFF Lab Interpretation Abnormal 07/11/2017 [facility] COMPREHENSIVE METABOLIC PANEL(DBIL NOT INCLUDED) Albumin 2.4 3.4 - 5 07/11/2017 [facility] COMPREHENSIVE METABOLIC PANEL(DBIL NOT INCLUDED) Calcium 7.8 8.5 - 10.2 07/11/2017 [facility] COMPREHENSIVE METABOLIC PANEL(DBIL NOT INCLUDED) CO2 30 21 - 32 07/11/2017 [facility] COMPREHENSIVE METABOLIC PANEL(DBIL NOT INCLUDED) Chloride 102 98 - 107 07/11/2017 [facility] COMPREHENSIVE METABOLIC PANEL(DBIL NOT INCLUDED) Creatinine 4.05 0.6 - 1.3 07/11/2017 High [facility] COMPREHENSIVE METABOLIC PANEL(DBIL NOT INCLUDED) Glucose 108 70 - 99 07/11/2017 High [facility] COMPREHENSIVE METABOLIC PANEL(DBIL NOT INCLUDED) Alk Phos 112 45 - 117 07/11/2017 [facility] COMPREHENSIVE METABOLIC PANEL(DBIL NOT INCLUDED) Potassium 4.8 3.5 - 5.1 07/11/2017 [facility] COMPREHENSIVE METABOLIC PANEL(DBIL NOT INCLUDED) Sodium 138 136 - 145 07/11/2017 [facility] COMPREHENSIVE METABOLIC PANEL(DBIL NOT INCLUDED) ALT 24 12 - 78 07/11/2017 [facility] COMPREHENSIVE METABOLIC PANEL(DBIL NOT INCLUDED) AST 19 15 - 37 07/11/2017 [facility] COMPREHENSIVE METABOLIC PANEL(DBIL NOT INCLUDED) Urea Nitrogen 66 7 - 18 07/11/2017 High [facility] COMPREHENSIVE METABOLIC PANEL(DBIL NOT INCLUDED) T Bilirubin 0.4 0.2 - 1 07/11/2017 [facility] COMPREHENSIVE METABOLIC PANEL(DBIL NOT INCLUDED) T Protein 5.5 6.4 - 8.2 07/11/2017 Low [facility] COMPREHENSIVE METABOLIC PANEL(DBIL NOT INCLUDED) GFR, Estimated 15 mL/min/1.73 m2 07/11/2017 [facility] COMPREHENSIVE METABOLIC PANEL(DBIL NOT INCLUDED) GFR, Estim, Afr-Am 18 mL/min/1.73 m2 07/11/2017 [facility] COMPREHENSIVE METABOLIC PANEL(DBIL NOT INCLUDED) Anion Gap 6 07/11/2017 [facility] COMPREHENSIVE METABOLIC PANEL(DBIL NOT INCLUDED) Lab Interpretation Abnormal 07/11/2017 [facility] CRP, HIGH SENS CRP, high sens 0.835 0 - 0.3 07/11/[address] [facility] CRP, HIGH SENS Lab Interpretation Abnormal 07/11/2017 [facility] MAGNESIUM Magnesium 2.2 1.8 - 2.4 07/11/2017 [facility] PHOSPHORUS Phosphorus 5.1 2.5 - 4.9 07/11/[address] [facility] PHOSPHORUS Lab Interpretation Abnormal 07/11/2017 [facility] SED RATE Sed Rate 31 mm/Hr <20 07/11/[address] [facility] SED RATE Lab Interpretation Abnormal 07/11/2017 [facility] INTACT PTH Intact PTH 140.50 8.7 - 77.1 07/10/[address] [facility] INTACT PTH Lab Interpretation Abnormal 07/10/2017 [facility] LIVER PROFILE T Protein 5.1 6.4 - 8.2 07/10/2017 Low [facility] LIVER PROFILE Albumin 2.3 3.4 - 5 07/10/2017 Low [facility] LIVER PROFILE T Bilirubin 0.4 0.2 - 1 07/10/2017 [facility] LIVER PROFILE Alk Phos 116 45 - 117 07/10/2017 [facility] LIVER PROFILE AST 15 15 - 37 07/10/2017 [facility] LIVER PROFILE ALT 24 12 - 78 07/10/2017 [facility] LIVER PROFILE D Bilirubin 0.1 0 - 0.2 07/10/2017 [facility] LIVER PROFILE Lab Interpretation Abnormal 07/10/2017 [facility] PT/INR/PTT PT 14.2 Seconds 11.8 - 15.0 07/10/2017 [facility] PT/INR/PTT INR 1.1 SUGGESTED THERAPEUTIC RANGES: INR 2.0-3.0 for MODERATE INTENSITY ANTICOAGULATION INR 2.5-3.5 for HIGH INTENSITY ANTICOAGULATION 07/10/2017 [facility] PT/INR/PTT PTT 35.2 Seconds 23.6 - 36.4 07/10/2017 [facility] VIT D, 25-HYDROXY Vit D, 25-Hydroxy 11.4 30 - 100 07/10/2017 Low Vitamin D deficiency has been defined by the [employer] and
Endocrine Society guideline as a level of serum 25-OH Vitamin D less than 20
ng/mL. The Endocrine Society further defines Vitamin D insufficiency as a
level between 21 and 29 ng/mL and sufficiency as a level between 30 and 100
ng/mL.

[facility] VIT D, 25-HYDROXY Lab Interpretation Abnormal 07/10/2017 [facility] RETIC COUNT Retic Count 1.1 0.5 - 1.8 07/10/2017 [facility] RETIC COUNT Immature Retic 7.7 2.3 - 13.4 07/10/2017 [facility] RETIC COUNT Ret Hgb Equivalent 34.00 30.8 - 36.6 07/10/2017 [facility] RETIC COUNT Absolute Retic 0.04 M/uL 0.03 - 0.10 07/10/2017 [facility] ELECTROPH, 24HR UR Volume 900 07/09/2017 [facility] ELECTROPH, 24HR UR Protein, Ur 2.29 g/day 07/09/2017 [facility] ELECTROPH, 24HR UR Comment Electronically signed out by: Jamila Mujica,PhD./[id number] (note) Interpretation:Marked proteinuria, no Bence Ohara protein. 07/09/2017 [facility] T PROT, TIMED UR T Prot (Period) 24 hrs 07/09/2017 [facility] T PROT, TIMED UR T Prot (Volume) 900 07/09/2017 [facility] T PROT, TIMED UR T Prot, Ur 2.539 07/09/2017 [facility] T PROT, TIMED UR T Prot(Calculated) 2285.1 mg/24 Hr 07/09/2017 [facility] FERRITIN Ferritin 51.20 26 - 388 07/09/2017 [facility] IRON PROFILE Iron 37 65 - 175 07/09/2017 Low [facility] IRON PROFILE TIBC 246 250 - 450 07/09/2017 Low [facility] IRON PROFILE % Iron Sat 15 07/09/2017 [facility] IRON PROFILE Lab Interpretation Abnormal 07/09/2017 [facility] T PROT/CREA RATIO,UR Creatinine, Ur 47.1 07/08/2017 [facility] T PROT/CREA RATIO,UR T Prot, Ur 2.314 07/08/2017 [facility] T PROT/CREA RATIO,UR T Prot/Crea Ratio,Ur 4.91 0.0 - 0.5 07/08/2017 High [facility] T PROT/CREA RATIO,UR Lab Interpretation Abnormal 07/08/2017 [facility] KARI KARI Screen Negative NEG 07/08/2017 [facility] COMPLEMENT C3 Complement C3 134.0 90 - 180 07/08/2017 [facility] COMPLEMENT C4 Complement C4 27.2 10 - 40 07/08/2017 [facility] ELECTROPH, BLD Protein 5.0 07/08/2017 [facility] ELECTROPH, BLD Comment Electronically signed out by: Jamila Mujica,PhD./[id number] (note) INTERPRETATION: There is a decrease in albumin and serum protein levels. This suggests hemodilution, generalized malnutrition, and a protein losing state or a redistribution of body water. 07/08/2017 [facility] FREE KAPPA & LAMBDA LIGHT CHAINS, SERUM Free [place] Lt Ch 80.6 Reference range: 3.3 to 19.4 Unit: mg/L 07/08/2017 High [facility] FREE KAPPA & LAMBDA LIGHT CHAINS, SERUM Free Lambda Lt Ch 45.4 Reference range: 5.7 to 26.3 Unit: mg/L 07/08/[address] [facility] FREE KAPPA & LAMBDA LIGHT CHAINS, SERUM [place]/Lambda Ratio 1.78 Reference range: 0.26 to 1.65 07/08/2017 High [facility] FREE KAPPA & LAMBDA LIGHT CHAINS, SERUM Lab Interpretation Abnormal 07/08/2017 [facility] HIV-1/HIV-2 ROUTINE SCREENING HIV-1/HIV-2 Negative NEG 07/08/2017 [facility] NEUTROPHILE AB MPO-ANCA (note) MPO: < 9.0 Test performed atLab [facility] MPO Reference Interval: 0.0 - 9.0 U/ml IU/mL 07/08/2017 [facility] NEUTROPHILE AB PR3-ANCA (note) PR3: <3.5 Test performedatLab [facility] PR3 Reference Interval 0.0 - 3.5 U/ ml IU/mL 07/08/2017 [facility] DUPLEX DOPPLER ABD/PEL VASCULAR STUDY, COMPLETE <p>IMPRESSION:</p><p>1.Mildly increased bilateral renal resistive indices, right greater</p><p>than left, with no increased velocities to suggest renal arterial</p><p>stenosis.</p><p>2.Increased echogenicity of the kidneys can be seen with medical renal</p><p>disease.</p><p>3.Bilateral moderate pleural effusions are present.</p><p> </p><p> </p><p> </p><p>Dictated By: Joseph Burleson MD, 07/07/2017 10:48 AM</p><p> </p><p>I have reviewed the study and agree with the findings in this report.</p><p> </p><p>Signed By: Meghann Peres MD, 07/07/2017 11:02 AM</p><p> </p> IMPRESSION:1.Mildly increased bilateral renal resistive indices, right greaterthan left, with no increased velocities to suggest renal arterialstenosis.2.Increased echogenicity of the kidneys can be seen with medical renaldisease.3.Bilateral moderate pleural effusions are present. Dictated By: Joseph Burleson MD, 07/07/2017 10:48 AM I have reviewed the study and agree with the findings in this report. Signed By: Meghann Peres MD, 07/07/2017 11:02 AM 07/07/2017 [facility] DUPLEX DOPPLER ABD/PEL VASCULAR STUDY, COMPLETE <p>EXAM: US RENAL WITH DOPPLER</p><p> </p><p>DATE: 07/07/2017 9:59 AM</p><p> </p><p& amp;gt;INDICATION: evaluate kidneys in setting of worsening function. </p><p> </p><p>ADDITIONAL INFORMATION: Status post left upper pole partial n ephrectomy.</p><p> </p><p>COMPARISON: Renal ultrasound 11/23/2016, CT abdomen pelvis 07/06/2017</p><p> </p><p>TECHNIQUE: Multiplanar grayscale, color Doppler and spectral Doppler</p><p>ultrasound of the kidneysand urinary bladder.</p><p> </p><p>FINDINGS:</p><p> </p><p>Right kidney:</p><p>Size: 11.5 x 4.4 x 6.7 cm.</p><p>Hydronephrosis: None.</p><p>Echogenicity: Mildly hyperechoic.</p><p>Calculi: None.</p><p>Cysts/Masses: None.</p><p> </p><p>Left kidney:</p><p>Size: 10.0 x 5.4 x 5.0 cm.</p><p>Hydronephrosis: None.</p><p>Echogenicity: Mildly hyperechoic.</p><p>Calculi: None.</p><p>Cysts/Masses: None.</p><p> </p><p>Bladder: Normal.</p><p> </p><p>Right Main Renal Artery: Patent. No elevated velocities. RI 0.82 </p><p>Right RA:Aorta Ratio: Normal. </p><p> </p><p>Right Intrarenal/Arcuate Arteries: Patent. Mild parvus et tardus.</p><p>Right Superior RI: 0.8 </p><p>Right Middle RI: 0.8 </p><p>Right Inferior RI: 0.7 </p><p> </p><p>Left Main Renal Artery: Patent. No elevated velocities. RI 0.84</p><p>Left RA:Aorta Ratio: Normal. </p><p> </p><p>Left Intrarenal/Arcuate Arteries: Patent. Mild parvus et tardus.</p><p>Left Superior RI: 0.72 </p><p>Left Middle RI: 0.74 </p><p>Left Inferior RI: 0.74 </p><p> </p><p>Main Renal Veins: Patent.</p><p> </p><p>Free fluid: Moderate bilateral pleural effusions are present</p><p> </p><p>Other: None.</p><p> </p> EXAM: US RENAL WITH DOPPLER DATE: 07/07/2017 9:59 AM INDICATION: evaluate kidneys in setting of worsening function. ADDITIONAL INFORMATION: Status post left upper pole partial nephrectomy. COMPARISON: Renal ultrasound 11/23/2016, CT abdomen pelvis 07/06/2017 TECHNIQUE: Multiplanar grayscale, color Doppler and spectral Dopplerultrasound of the kidneysand urinary bladder. FINDINGS: Right kidney:Size: 11.5 x 4.4 x 6.7 cm.Hydronephrosis: None.Echogenicity: Mildly hyperechoic.Calculi: None.Cysts/Masses: None. Left kidney:Size: 10.0 x 5.4 x 5.0 cm.Hydronephrosis: None.Echogenicity: Mildly hyperechoic.Calculi: None.Cysts/Masses: None. Bladder: Normal. Right Main Renal Artery: Patent. No elevated velocities. RI 0.82Right RA:Aorta Ratio: Normal. Right Intrarenal/Arcuate Arteries: Patent. Mild parvus et tardus.Right Superior RI: 0.8 Right Middle RI: 0.8 Right Inferior RI: 0.7 Left Main Renal Artery: Patent. No elevated velocities. RI 0.84Left RA:Aorta Ratio: Normal. Left Intrarenal/Arcuate Arteries: Patent. Mild parvus et tardus.Left Superior RI: 0.72 Left Middle RI: 0.74 Left Inferior RI: 0.74 Main Renal Veins: Patent. Free fluid: Moderate bilateral pleural effusions are present Other: None. 07/07/2017 [facility] DUPLEX DOPPLER ABD/PEL VASCULAR STUDY, COMPLETE <p styleCode="header">Interface, Rad/Mammog In - 07/07/2017 11:06 AM [employer]</p><p><span>EXAM: US RENAL WITH DOPPLER</span>

<span>DATE: 07/07/2017 9:59 AM</span>
<span> </span>
<span>INDICATION: evaluate kidneys in setting of worsening function. </span>
<span> </span>
<span>ADDITIONAL INFORMATION: Status post left upper pole partial nephrectomy.</span>

<span>COMPARISON: Renal ultrasound 11/23/2016, CT abdomen pelvis 07/06/2017</span>
<span> </span>
<span>TECHNIQUE: Multiplanar grayscale, color Doppler and spectral Doppler</span>
<span>ultrasound of the kidneys and urinary bladder.</span>

<span>FINDINGS:</span>

<span>Right kidney:</span>
<span>Size: 11.5 x 4.4 x 6.7 cm.</span><br/&g t;<span>Hydronephrosis: None.</span>
<span>Echogenicity: Mildly hyperechoic.</span>
<span>Calculi: None.</span>
<span>Cysts/Masses: None.</span>

<span>Left kidney:</span>
<span>Size: 10.0 x 5.4 x 5.0 cm.</span>
<span>Hydronephrosis: None.</span>
<span&gt ;Echogenicity: Mildly hyperechoic.</span>
<span>Calculi: None.</span>
<span>Cysts/Masses: None.</span>

<span>Bladder: Normal.</span>

<span>Right Main Renal Artery: Patent. No elevated velocities. RI 0.82</span>
<span>Right RA:Aorta Ratio: Normal. </span>

<span>Right Intrarenal/Arcuate Arteries: Patent. Mild parvus et tardus.</span>
<span>Right Superior RI: 0.8 </span>
<span>Right Middle RI: 0.8 </span>
<span>Right Inferior RI: 0.7 </span>

<span>Left Main Renal Artery: Patent. No elevated velocities. RI 0.84</span>
<span>Left RA:Aorta Ratio: Normal. </span>

<span>Left Intrarenal/Arcuate Arteries: Patent. Mild parvus et tardus.</span>
<span>Left Superior RI: 0.72 </span>
<span>Left Middle RI: 0.74 </span>
<span>Left Inferior RI: 0.74 </span>

<span>Main Renal Veins: Patent.</span>

<span>Free fluid: Moderate bilateral pleural effusions are present</span>
< br/><span>Other: None.</span>

<span>IMPRESSION</span>
<span>IMPRESSION :</span>
<span>1. Mildly increased bilateral renal resistive indices, right greater</span>
<span>than left, with no increased velocities to suggest renal arterial</span>
<span>stenosis.</span>
<span>2. Increased echoge nicity of the kidneys can be seen with medical renal</span>
<span>disease.</span>
<span>3. Bilateral moderate pleural effusions are present.</span>

<span>Dictated By: Joseph Burleson MD, 07/07/2017 10:48 AM</span>

<span>I have reviewed the study and agree with the findings in this report.</span>
<br/& gt;<span>Signed By: Meghann Peres MD, 07/07/2017 11:02 AM</span>
</p> Interface, Rad/Mammog In - 07/07/2017 11:06 AM CSTEXAM: US RENAL WITH DOPPLER DATE: 07/07/2017 9:59 AM INDICATION: evaluate kidneys in setting of worsening function. ADDITIONAL INFORMATION: Status post left upper pole partial nephrectomy. COMPARISON: Renal ultrasound 11/23/2016, CT abdomen pelvis 07/06/2017 TECHNIQUE: Multiplanar grayscale, color Doppler and spectral Doppler ultrasound of the kidneys and urinary bladder. FINDINGS: Right kidney: Size: 11.5 x 4.4 x 6.7 cm. Hydronephrosis: None. Echogenicity: Mildly hyperechoic. Calculi: None. Cysts/Masses: None. Left kidney: Size: 10.0 x 5.4 x 5.0 cm. Hydronephrosis: None. Echogenicity: Mildly hyperechoic. Calculi: None. Cysts/Masses: None. Bladder: Normal. Right Main Renal Artery: Patent. No elevated velocities. RI 0.82 Right RA:Aorta Ratio: Normal. Right Intrarenal/Arcuate Arteries: Patent. Mild parvus et tardus. Right Superior RI: 0.8 Right Middle RI: 0.8 Right Inferior RI: 0.7 Left Main Renal Artery: Patent. No elevated velocities. RI 0.84 Left RA:Aorta Ratio: Normal. Left Intrarenal/Arcuate Arteries: Patent. Mild parvus et tardus. Left Superior RI: 0.72 Left Middle RI: 0.74 Left Inferior RI: 0.74 Main Renal Veins: Patent. Free fluid: Moderate bilateral pleural effusions are present Other: None. IMPRESSION IMPRESSION: 1. Mildly increased bilateral renal resistive indices, right greater than left, with no increased velocities to suggest renal arterial stenosis. 2. Increased echogenicity of the kidneys can be seen with medical renal disease. 3. Bilateral moderate pleural effusions are present. Dictated By: Joseph Burleson MD, 07/07/2017 10:48 AM I have reviewed the study and agree with the findings in this report. Signed By: Meghann Peres MD, 07/07/2017 11:02 AM 07/07/2017 [facility] FREE T4 Free T4 1.02 0.89 - 1.76 07/06/2017 [facility] TSH TSH 3.16 uIU/mL 0.36 - 3.74 07/06/2017 [facility] TRANSTHORACIC ECHO (TTE) TRANSTHORACIC ECHO (TTE) Transthoracic Echo Report DINESH DIAZ Age:62 Gender: M :1955 Exam Date: 07/05/2017 07:14 Exam Location: [facility] Echo Ordering Phys: DENI OTOOLE V Referring Phys:[id number] Reading Phys:Mateo Deras MD Fellow Phys: Fellow Phys: Information Technology Account Manager: Tegan Morris Reason For Exam: Indications:pleural effusion, BLE edema, compliant on bp-meds/lasix ICD-9 Codes: Exam Type: Transthoracic Echo Procedure CPT:84962 Addtional CPT: Ht (in): 69 BSA: 1.93HR: 80 Rhythm: Sinus rhythm Wt (lb): 168BP: 207/ 119 Technical Quality: Adequate History: MEASUREMENTS(Male / Female) Normal Values 2D ECHO LV Diastolic Diameter PLAX5.3 cm4.2 - 5.9 / 3.9 - 5.3 cm LV Systolic Diameter PLAX 4.4 cm2.1 - 4.0 cm LV Fractional Shortening PLAX 16.8 %25 - 46% IVS Diastolic Thickness 1.2 cm IVS Systolic Thickness1.5 cm LVPW Diastolic Thickness1.1 cm LVPW Systolic Thickness 1.5 cm LV Relative Wall Thickness0.45 LVOT Diameter 2.2 cm Aortic Root Diameter3.7 cm LV Diastolic Volume MOD BP148 cm 67 - 155 / 56 - 104 cm LV Systolic Volume MOD BP 105 cm 22 - 58 / 19 - 49 cm LV Ejection Fraction MOD BP 29.4 %>=55% LV Stroke Volume MOD BP 43.5 cm LV Cardiac Output MOD BP5029 cm/min LV Cardiac Index MOD BP 1799 cm/minm LA Volume 68.5 cm18 - 58 / 22 - 52 cm DOPPLER AV Peak Ypynoezi233 cm/s AV Peak Gradient7.9 mmHg AV Mean Phmiikkv98.7 cm/s AV Mean Gradient4 mmHg AV Velocity Time Integral 26.7 cm LVOT Peak Uucylnim729 cm/s LVOT Peak Gradient4.7 mmHg LVOT Mean Osvglfnj84.1 cm/s LVOT Mean Gradient2 mmHg LVOT Velocity Time Integral 18.9 cm LVOT Stroke Jajwfb51.4 cm AV Area Cont Eq vti 2.6 cm AV Area Cont Eq pk2.9 cm Mitral E Point Velocity 118 cm/s Mitral A Point Velocity 84 cm/s Mitral E to A Ratio 1.4 MV Deceleration [place] 711 cm/s MV Deceleration Frbx094 ms PV Peak Alyysoes48.7 cm/s PV Peak Gradient1.9 mmHg LV E' Lateral Velocity6.1 cm/s Mitral E to LV E' Lateral Ratio 19.4 LV E' Septal Velocity 5.7 cm/s Mitral E to LV E' Septal Ratio20.8 FINDINGS Left Ventricle Mild left ventricular dilatation. Left ventricular wall thickness mildly increased with eccentric left ventricular hypertrophy. LV mass index 127 g/m2. Severely reduced global left ventricular systolic function. Left ventricular ejection fraction is 25-29%. Severe global hypokinesis. Impaired relaxation, increased LV filling pressures (grade 2 diastolic dysfunction). Right Ventricle The right ventricle is normal in size and systolic function. TAPSE=2.5 cm. Right Atrium The right atrium is normal in size. Left Atrium The left atrium is mildly dilated. EVELIN=35 ml/m2. IAS Mitral Valve Apical tethering of the mitral valve leaflets, consistent with secondary (functional) regurgitation, no significant stenosis or prolapse. There is mild mitral regurgitation. Aortic Valve Aortic valve is trileaflet, mildly thickened, opens well. There is no aortic stenosis. There is no aortic regurgitation. Tricuspid Valve Structurally normal tricuspid valve without significant stenosis. There is trace tricuspid regurgitation.Insufficient TR jet to estimate pulmonary artery systolic pressure. Pulmonic Valve Pulmonic valve not well visualized. No significant stenosis. There is trace pulmonic regurgitation. Pericardium There is a trivial pericardial effusion.Large left pleural effusion and ascites is noted. Aorta Normal aortic root for body surface area. IVC The inferior vena cava is normal in size with less than than 50% respiratory change in dimension, consistent with RA pressure 5-10 mmHg. CONCLUSIONS Mild left ventricular dilatation, evidence of eccentric left ventricular hypertrophy. Severely reduced global left ventricular systolic function, ejection fraction is 25-29% with global hypokinesis. Impaired relaxation, increased LV filling pressures (grade 2 diastolic dysfunction). The right ventricle is normal in size and systolic function. The left atrium is mildly dilated. There is mild mitral regurgitation, likely secondary (functional). Aortic valve is trileaflet, mildly thickened, opens well, without significant stenosis or regurgitation. Insufficient TR jet to estimate pulmonary artery systolic pressure. There is a trivial pericardial effusion, large left pleural effusion and ascites is noted. No other significant abnormalities noted. Compared to the prior study dated04/27/2016, there is a significant decrease of systolic function, LV filling pressures are increased, pleural effusion and ascites are noted. Of note, there is no evidence of aortic root dilatation in the present study. Mateo Deras MD (Electronically Signed) Final Date:05 July 2017 10:05 2D ECHO LV Diastolic Diameter PLAX5.3 cm4.2 - 5.9 / 3.9 - 5.3 cm LV Systolic Diameter PLAX 4.4 cm2.1 - 4.0 cm LV Fractional Shortening PLAX 16.8 %25 - 46% IVS Diastolic Thickness 1.2 cm IVS Systolic Thickness1.5 cm LVPW Diastolic Thickness1.1 cm LVPW Systolic Thickness 1.5 cm LV Relative Wall Thickness0.45 LVOT Diameter 2.2 cm Aortic Root Diameter3.7 cm LV Diastolic Volume MOD BP148 cm 67 - 155 / 56 - 104 cm LV Systolic Volume MOD BP 105 cm 22 - 58 / 19 - 49 cm LV Ejection Fraction MOD BP 29.4 %>=55% LV Stroke Volume MOD BP 43.5 cm LV Cardiac Output MOD DU7913 cm/min LV Cardiac Index MOD BP 1799 cm/minm LA Volume 68.5 cm18 - 58 / 22 - 52 cm DOPPLER AV Peak Upafddbi210 cm/s AV Peak Gradient7.9 mmHg AV Mean Yynmibjv13.7 cm/s AV Mean Gradient4 mmHg AV Velocity Time Integral 26.7 cm LVOT Peak Vgsokbty372 cm/s LVOT Peak Gradient4.7 mmHg LVOT Mean Ymudcedf58.1 cm/s LVOT Mean Gradient2 mmHg LVOT Velocity Time Integral 18.9 cm LVOT Stroke Eooagg63.4 cm AV Area Cont Eq vti 2.6 cm AV Area Cont Eq pk2.9 cm Mitral E Point Velocity 118 cm/s Mitral A Point Velocity 84 cm/s Mitral E to A Ratio 1.4 MV Deceleration [place] 711 cm/s MV Deceleration Pjex213 ms PV Peak Djtwdviv25.7 cm/s PV Peak Gradient1.9 mmHg LV E' Lateral Velocity6.1 cm/s Mitral E to LV E' Lateral Ratio 19.4 LV E' Septal Velocity 5.7 cm/s Mitral E to LV E' Septal Ratio20.8 07/05/2017 [facility] FOLIC ACID Folic Acid 8.3 5.39 - 24 07/05/2017 [facility] HEMOGLOBIN A1C Hemoglobin A1c 8.5 4.3 - 6.1 07/05/2017 High [facility] HEMOGLOBIN A1C Est Average Gluc 197.3 07/05/2017 [facility] HEMOGLOBIN A1C Lab Interpretation Abnormal 07/05/2017 [facility] HEPATITIS PANEL HCV IgG Negative NEG 07/05/2017 [facility] HEPATITIS PANEL HBsAg Negative NEG 07/05/2017 [facility] HEPATITIS PANEL HAV, IgM Negative NEG 07/05/2017 [facility] HEPATITIS PANEL HBcAb, IgM Negative NEG 07/05/2017 [facility] VITAMIN B12 Vitamin B12 732 211 - 911 07/05/2017 [facility] DUPLEX DOPPLER LOWER EXTREMITY VENOUS, BILATERAL <p>IMPRESSION:</p><p>1.No deep venous thrombosis (DVT) of the right or left lower</p><p>extremity.</p><p>2.Bilateral lower extremity superficial soft tissue edema.</p><p> </p><p>This EPIC radiology report is a preliminary resident dictation until</p><p>finalized by an attending.Changes to this preliminary report may occur</p><p>in an additional preliminary or finalized version.</p><p> </p><p>Dictated By: Steven Elliott MD, 07/05/2017 3:56 AM</p><p> </p><p>I have reviewed the study and agree with the findings in this report.</p><p> </p><p>Signed By: Mervin Mendoza MD, 07/05/2017 4:30 AM</p><p> </p> IMPRESSION:1.No deep venous thrombosis (DVT) of the right or left lowerextremity.2.Bilateral lower extremity superficial soft tissue edema. This [facility] radiology report is a preliminary resident dictation untilfinalized by an attending.Changes to this preliminary report may occurin an additional preliminary or finalized version. Dictated By: Steven Elliott MD, 07/05/2017 3:56 AM I have reviewed the study and agree with the findings in this report. Signed By: Mervin Mendoza MD, 07/05/2017 4:30 AM 07/05/2017 [facility] DUPLEX DOPPLER LOWER EXTREMITY VENOUS, BILATERAL <p>EXAM: US BILATERAL LOWER EXTREMITY VENOUS DOPPLER</p><p> </p><p>DATE: 07/05/2017 3:41 AM</p><p> </p><p>INDICATION: Bilateral lower extremity edema, left greater than right. </p><p> </p><p>COMPARISON: None.</p><p> </p><p>TECHNIQUE: Multiplanar grayscale, color Doppler and spectral Doppler</p><p>ultrasound of the bilateral lower extremity veins. </p><p> </p><p>FINDINGS: </p><p> </p><p>Right Thigh Veins:</p><p>Common Femoral: Patent. </p><p>Femoral (SFV): Patent. </p><p>Popliteal: Patent. </p><p>Proximal Greater Saphenous: Patent. </p><p>Deep Femoral Veins: Patent. </p><p> </p><p>Left Thigh Veins:</p><p&gt ;Common Femoral: Patent. </p><p>Femoral (SFV): Patent. </p><p>Popliteal: Patent. </p><p>Proximal Greater Saphenous: Patent. </p><p>Deep Femoral Veins: Patent. </p><p> </p><p>Other: Bilateral lower extremity superficial soft tissue edema .</p><p> </p> EXAM: US BILATERAL LOWER EXTREMITY VENOUS DOPPLER DATE: 07/05/2017 3:41 AM INDICATION: Bilateral lower extremity edema, left greater than right. COMPARISON: None. TECHNIQUE: Multiplanar grayscale, color Doppler and spectral Dopplerultrasound of the bilateral lower extremity veins. FINDINGS: Right Thigh Veins:Common Femoral: Patent. Femoral (SFV): Patent. Popliteal: Patent. Proximal Greater Saphenous: Patent. Deep Femoral Veins: Patent. Left Thigh Veins:Common Femoral: Patent. Femoral (SFV): Patent. Popliteal: Patent. Proximal Greater Saphenous: Patent. Deep Femoral Veins: Patent. Other: Bilateral lower extremity superficial soft tissue edema. 07/05/2017 [facility] DUPLEX DOPPLER LOWER EXTREMITY VENOUS, BILATERAL <p styleCode="header">Interface, Rad/Mammog In - 07/05/2017 4:34 AM REFUGE WORKER</p><p><span>EXAM: US BILATERAL LOWER EXTREMITY VENOUS DOPPLER</span>

<span>DATE: 07/05/2017 3:41 AM</span>
<span> </span>
<span>INDICATION: Bilateral lower extremity edema, left greater than right. </span>

<span>COMPARISON: None.< /span>
<span> </span>
<span>TECHNIQUE: Multiplanar grayscale, color Doppler and spectral Doppler</span>
<span>ultrasound of the bilateral lower extremity veins. </span>

<span>FINDINGS: </span>

<span>Right Thigh Veins:</span>
<span>Common Femoral: Patent. </span>
<span>Femoral (SFV): Patent. </span>
<span>Popliteal: Patent. </span>
<span>Proximal Greater Saphenous: Patent. </span>
<span>Deep Femoral Veins: Patent. </span>

<span>Left Thigh Veins:</span>
<span>Common Femoral: Patent. </span>
<span>Femoral (SFV): Patent. </span>
<span>Popliteal: Patent. </span>
<span>Proximal Greater Saphenous: Patent. </span>
<span>Deep F emoral Veins: Patent. </span>

<span>Other: Bilateral lower extremity superficial soft tissue edema.</span><br/&g t;
<span>IMPRESSION</span>
<span>IMPRESSION:</span>
<span>1. No deep venous thrombosis (DVT) of the right or left lower</span>
<span>extremity.</span>
<span>2. Bilateral lower extremity superficial soft tissue edema.</span>

<span>This [facility] radiology report is a preliminary resident dictation until</span>
<span>finalized by an attending. Changes to this preliminary report may occur</span>
<span>in an additional preliminary or finalized version.</span>

<span>Dictated By: Steven Elliott MD, 07/05/2017 3:56 AM</span>

<span>I have reviewed the study and agree with the findings in this report.</span>

<span>Signed By: Mervin Mendoza MD, 07/05/2017 4:30 AM</span>
</p> Jason, Rad/Mammog In - 07/05/2017 4:34 AM CSTEXAM: US BILATERAL LOWER EXTREMITY VENOUS DOPPLER DATE: 07/05/2017 3:41 AM INDICATION: Bilateral lower extremity edema, left greater than right. COMPARISON: None. TECHNIQUE: Multiplanar grayscale, color Doppler and spectral Doppler ultrasound of the bilateral lower extremity veins. FINDINGS: Right Thigh Veins: Common Femoral: Patent. Femoral (SFV): Patent. Popliteal: Patent. Proximal Greater Saphenous: Patent. Deep Femoral Veins: Patent. Left Thigh Veins: Common Femoral: Patent. Femoral (SFV): Patent. Popliteal: Patent. Proximal Greater Saphenous: Patent. Deep Femoral Veins: Patent. Other: Bilateral lower extremity superficial soft tissue edema. IMPRESSION IMPRESSION: 1. No deep venous thrombosis (DVT) of the right or left lower extremity. 2. Bilateral lower extremity superficial soft tissue edema. This [facility] radiology report is a preliminary resident dictation until finalized by an attending. Changes to this preliminary report may occur in an additional preliminary or finalized version. Dictated By: Steven Elliott MD, 07/05/2017 3:56 AM I have reviewed the study and agree with the findings in this report. Signed By: Mervin Mendoza MD, 07/05/2017 4:30 AM 07/05/2017 [facility] 12 LEAD EKG 12 LEAD EKG FOR CHP [facility] Test Date:2017-07-04 Pat Name: DINESH DIAZDepartment: : Gender: MTechnician: [id number] :1955 Requested By: Order Number:Winston EVANS: Ruben Grant Measurements IntervalsAxis Rate: 78 P:15 ME: 160QRS:25 QRSD: 112T:203 QT: 379 QTc:434 Interpretive Statements SINUS RHYTHM MODERATE INTRAVENTRICULAR CONDUCTION DELAY POSSIBLE ANTEROSEPTAL INFARCTION, INDETERMINATE AGE NONSPECIFIC T WAVE ABNORMALITY POOR R WAVE PROGRESSION ABNORMAL ECG Electronically Signed On 07-05-17 19:07:02 REFUGE WORKER by Ruben Grant 07/04/2017 [facility] POC CO2 POC 23 21 - 32 07/04/2017 Physician Notified [facility] POC Chloride POC 107 98 - 107 07/04/2017 [facility] POC Potassium POC 4.6 3.5 - 5.1 07/04/2017 [facility] POC Sodium POC 142 136 - 145 07/04/2017 [facility] POC Glucose POC 310 74 - 106 07/04/2017 [facility] POC Urea Nitrogen POC 41 7 - 18 07/04/2017 [facility] POC Creatinine POC 3.4 0.6 - 1.3 07/04/2017 [facility] POC Calcium Ionized POC 1.09 1.15 - 1.29 07/04/2017 Low [facility] POC Hemoglobin POC 14.6 14 - 18 07/04/2017 [facility] POC Hematocrit POC 43.0 40 - 54 07/04/2017 [facility] POC GFR, Estimated 18 mL/min/1.73 m2 07/04/2017 [facility] POC GFR, Estim, Afr-Am 22 mL/min/1.73 m2 07/04/2017 [facility] POC Lab Interpretation Abnormal 07/04/2017 [facility] TROPONIN I POC Troponin POC 0.04 0 - 0.08 07/04/2017 [facility] B NATRIURETIC PEPT B Natriuretic Pept 4625 0 - 100 07/04/2017 High [facility] B NATRIURETIC PEPT Lab Interpretation Abnormal 07/04/2017 [facility] UA CHEMISTRIES Color Yellow 07/04/2017 [facility] UA CHEMISTRIES Clarity Clear 07/04/2017 [facility] UA CHEMISTRIES Spec [place] 1.021 1.001 - 1.035 07/04/2017 [facility] UA CHEMISTRIES pH 6.0 5 - 8 07/04/2017 [facility] UA CHEMISTRIES Protein 3+ NEG 07/04/2017 Abnormal [facility] UA CHEMISTRIES Glucose 3+ NEG 07/04/2017 Abnormal [facility] UA CHEMISTRIES Ketone Negative NEG 07/04/2017 [facility] UA CHEMISTRIES Bilirubin Negative NEG 07/04/2017 [facility] UA CHEMISTRIES Nitrate Negative NEG 07/04/2017 [facility] UA CHEMISTRIES Urobilinogen <1.0 0.2 - 1 07/04/2017 [facility] UA CHEMISTRIES Leukocyte Negative NEG 07/04/2017 [facility] UA CHEMISTRIES Blood 1+ NEG 07/04/2017 Abnormal [facility] UA CHEMISTRIES RBC 9 /HPF 0 - 4 07/04/2017 High [facility] UA CHEMISTRIES WBC 8 /HPF 0 - 5 07/04/2017 High [facility] UA CHEMISTRIES Bacteria Few 07/04/2017 [facility] UA CHEMISTRIES Hyaline Cast 3 /LPF 07/04/2017 [facility] UA CHEMISTRIES Granular Cast 1 /LPF 07/04/2017 [facility] UA CHEMISTRIES Lab Interpretation Abnormal 07/04/2017 [facility] DIABETIC FOOT EXAM <p>Nena Gongora, NADINE 03/27/2017 10:20 AM</p><p>Diabetic Foot Exam was performed at 03/27/2017 10:09 AM.Right foot </p><p>sensation is reduced, right foot pulses are normal, right foot appearance </p><p>is abnormal (large callous lateral plantar surface ).Left foot sensation </p><p>is reduced,left foot pulses are normal,left foot appearance is normal. </p><p> </p><p> </p><p> </p> Nena Gongora NP 03/27/2017 10:20 AMDiabetic Foot Exam was performed at 03/27/2017 10:09 AM.Right foot sensation is reduced, right foot pulses are normal, right foot appearance is abnormal (large callous lateral plantar surface ).Left foot sensation is reduced,left foot pulses are normal,left foot appearance is normal. 03/27/2017 [facility] POC GROUP A STREP SCREEN Group A Strep POC neg Neg 03/27/2017 [facility] POC GROUP A STREP SCREEN GAS (Contr) pass Pass 03/27/2017 [facility] CHEM PANEL eGFR 46 04/05/2016 Result Comment: The eGFR is calculated using the CKD-EPI formula. In most young, healthy individuals the eGFR will be >90 mL/min/1.73m2. The eGFR declines with age. An eGFR of 60-89 may be normal in some populations, particularly the elderly, for whom the CKD-EPI formula has not been extensively validated. Use of the eGFR is not recommended in the following populations:

Individuals with unstable creatinine concentrations, including patients and those with serious co-morbid conditions.

Patients with extremes in muscle mass or diet.

The data above are obtained from the National Kidney Disease Education Program (NKDEP) which additionally recommends that when the eGFR is used in patients with extremes of body mass index for purposes of drug dosing, the eGFR should be multiplied by the estimated BMI. [facility] CHEM PANEL Glucose Lvl 270 70 - 99 04/05/2016 [facility] CHEM PANEL Creatinine Lvl 1.61 0.50 - 1.40 04/05/2016 [facility] CHEM PANEL BUN 33 7 - 22 04/05/2016 [facility] CHEM PANEL Calcium Lvl 8.3 8.5 - 10.5 04/05/2016 [facility] CHEM PANEL Chloride Lvl 104 95 - 109 04/05/2016 [facility] CHEM PANEL Potassium Lvl 4.3 3.5 - 5.1 04/05/2016 [facility] CHEM PANEL AGAP 11.3 10.0 - 20.0 04/05/2016 [facility] CHEM PANEL CO2 27 24 - 32 04/05/2016 [facility] CHEM PANEL Sodium Lvl 138 135 - 145 04/05/2016 [facility] HEMATOLOGY Basophils # 0.1 0.0 - 0.2 04/05/2016 [facility] HEMATOLOGY Eosinophils # 0.2 0.0 - 0.5 04/05/2016 [facility] HEMATOLOGY Segs 60.6 45.0 - 75.0 04/05/2016 [facility] HEMATOLOGY Lymphocytes 25.1 20.0 - 40.0 04/05/2016 [facility] HEMATOLOGY Monocytes 10.0 2.0 - 12.0 04/05/2016 [facility] HEMATOLOGY Eosinophils 3.6 0.0 - 4.0 04/05/2016 [facility] HEMATOLOGY Basophils 0.7 0.0 - 1.0 04/05/2016 [facility] HEMATOLOGY Segs-Bands # 4.2 1.5 - 8.1 04/05/2016 [facility] HEMATOLOGY Lymphocytes # 1.7 1.0 - 5.5 04/05/2016 [facility] HEMATOLOGY Monocytes # 0.7 0.0 - 0.8 04/05/2016 [facility] HEMATOLOGY MCHC 33.2 32.0 - 36.0 04/05/2016 [facility] HEMATOLOGY RDW 13.8 11.5 - 14.5 04/05/2016 [facility] HEMATOLOGY Platelet 187 133 - 450 04/05/2016 [facility] HEMATOLOGY MCV 85.7 80.0 - 94.0 04/05/2016 [facility] HEMATOLOGY MCH 28.4 27.0 - 31.0 04/05/2016 [facility] HEMATOLOGY MPV 7.8 7.4 - 10.4 04/05/2016 [facility] HEMATOLOGY WBC 7.0 3.7 - 10.4 04/05/2016 [facility] HEMATOLOGY Hgb 12.0 14.0 - 18.0 04/05/2016 [facility] HEMATOLOGY RBC 4.22 4.70 - 6.10 04/05/2016 [facility] HEMATOLOGY Hct 36.2 42.0 - 54.0 04/05/2016 [facility] CHEM PANEL Globulin 3.3 2.7 - 4.2 04/04/2016 [facility] CHEM PANEL A/G Ratio 1.0 0.7 - 1.6 04/04/2016 [facility] CHEM PANEL B/C Ratio 19 6 - 25 04/04/2016 [facility] CHEM PANEL AGAP 12.0 10.0 - 20.0 04/04/2016 [facility] CHEM PANEL eGFR 49 04/04/2016 Result Comment: The eGFR is calculated using the CKD-EPI formula. In most young, healthy individuals the eGFR will be >90 mL/min/1.73m2. The eGFR declines with age. An eGFR of 60-89 may be normal in some populations, particularly the elderly, for whom the CKD-EPI formula has not been extensively validated. Use of the eGFR is not recommended in the following populations:

Individuals with unstable creatinine concentrations, including patients and those with serious co-morbid conditions.

Patients with extremes in muscle mass or diet.

The data above are obtained from the National Kidney Disease Education Program (NKDEP) which additionally recommends that when the eGFR is used in patients with extremes of body mass index for purposes of drug dosing, the eGFR should be multiplied by the estimated BMI. [facility] CHEM PANEL Glucose Lvl 106 70 - 99 04/04/2016 [facility] CHEM PANEL BUN 29 7 - 22 04/04/2016 [facility] CHEM PANEL Creatinine Lvl 1.52 0.50 - 1.40 04/04/2016 [facility] CHEM PANEL Sodium Lvl 139 135 - 145 04/04/2016 [facility] CHEM PANEL Potassium Lvl 4.0 3.5 - 5.1 04/04/2016 [facility] CHEM PANEL Chloride Lvl 105 95 - 109 04/04/2016 [facility] CHEM PANEL CO2 26 24 - 32 04/04/2016 [facility] CHEM PANEL Calcium Lvl 8.8 8.5 - 10.5 04/04/2016 [facility] CHEM PANEL Total Protein 6.6 6.4 - 8.4 04/04/2016 [facility] CHEM PANEL ALT 14 0 - 65 04/04/2016 [facility] CHEM PANEL Albumin Lvl 3.3 3.5 - 5.0 04/04/2016 [facility] CHEM PANEL AST 12 0 - 37 04/04/2016 [facility] CHEM PANEL Alk Phos 69 39 - 136 04/04/2016 [facility] CHEM PANEL Bili Total 0.4 0.2 - 1.3 04/04/2016 [facility] HEMATOLOGY WBC 10.5 3.7 - 10.4 04/04/2016 [facility] HEMATOLOGY MPV 7.3 7.4 - 10.4 04/04/2016 [facility] HEMATOLOGY Platelet 210 133 - 450 04/04/2016 [facility] HEMATOLOGY MCHC 33.7 32.0 - 36.0 04/04/2016 [facility] HEMATOLOGY RDW 13.7 11.5 - 14.5 04/04/2016 [facility] HEMATOLOGY MCV 84.2 80.0 - 94.0 04/04/2016 [facility] HEMATOLOGY Hgb 12.2 14.0 - 18.0 04/04/2016 [facility] HEMATOLOGY Hct 36.2 42.0 - 54.0 04/04/2016 [facility] HEMATOLOGY MCH 28.4 27.0 - 31.0 04/04/2016 [facility] HEMATOLOGY RBC 4.30 4.70 - 6.10 04/04/2016 [facility] HEMATOLOGY Lymphocytes 18.8 20.0 - 40.0 04/04/2016 [facility] HEMATOLOGY Segs 72.2 45.0 - 75.0 04/04/2016 [facility] HEMATOLOGY Monocytes 6.9 2.0 - 12.0 04/04/2016 [facility] HEMATOLOGY Lymphocytes # 2.0 1.0 - 5.5 04/04/2016 [facility] HEMATOLOGY Eosinophils # 0.2 0.0 - 0.5 04/04/2016 [facility] HEMATOLOGY Segs-Bands # 7.6 1.5 - 8.1 04/04/2016 [facility] HEMATOLOGY Monocytes # 0.7 0.0 - 0.8 04/04/2016 [facility] HEMATOLOGY Basophils 0.3 0.0 - 1.0 04/04/2016 [facility] HEMATOLOGY Eosinophils 1.8 0.0 - 4.0 04/04/2016 [facility] LIPIDS CHD Risk 6.65 4.00 - 7.30 04/04/2016 [facility] LIPIDS VLDL 51 04/04/2016 [facility] LIPIDS LDL (Calculated) 124 <=99 mg/dL 04/04/2016 [facility] LIPIDS HDL 31 >=61 mg/dL 04/04/2016 [facility] LIPIDS Trig 254 <=149 mg/dL 04/04/2016 [facility] LIPIDS Chol 206 <=199 mg/dL 04/04/2016 [facility] SPECIAL CHEMISTRY Hgb A1C 7.6 <=5.6 % 04/04/2016 [facility] DRUG SCREEN UDS Note See Note *NA* (04/03/16 10:57 PM) 04/04/2016 [facility] DRUG SCREEN U Opiate Scr Negative *NA* (04/03/16 10:57 PM) Negative 04/04/2016 [facility] DRUG SCREEN U Cannab Scr Negative *NA* (04/03/16 10:57 PM) Negative 04/04/2016 [facility] DRUG SCREEN U Cocaine Scr Negative *NA* (04/03/16 10:57 PM) Negative 04/04/2016 [facility] DRUG SCREEN U Benzodia Scr Negative *NA* (04/03/16 10:57 PM) Negative 04/04/2016 [facility] DRUG SCREEN U Phencyc Scr Negative *NA* (04/03/16 10:57 PM) Negative 04/04/2016 [facility] DRUG SCREEN U Brittney Scr Negative *NA* (04/03/16 10:57 PM) Negative 04/04/2016 [facility] DRUG SCREEN U Amph Scr Negative *NA* (04/03/16 10:57 PM) Negative 04/04/2016 [facility] URINE AND STOOL UA Urobilinogen <=1.0 mg/dL 0.1 - 1.0 04/04/2016 [facility] URINE AND STOOL UA Blood Negative (04/03/16 10:57 PM) Negative 04/04/2016 [facility] URINE AND STOOL UA Leuk Est Negative (04/03/16 10:57 PM) Negative 04/04/2016 [facility] URINE AND STOOL UA Nitrite Negative (04/03/16 10:57 PM) Negative 04/04/2016 [facility] URINE AND STOOL UA WBC 1 0 - 5 04/04/2016 [facility] URINE AND STOOL UA Sq Epi Occasional /LPF Few /LPF 04/04/2016 [facility] URINE AND STOOL UA Hyal Cast 2 0 - 2 04/04/2016 [facility] URINE AND STOOL UA RBC 6 0 - 2 04/04/2016 [facility] URINE AND STOOL UA Ketones Negative mg/dL Negative mg/dL 04/04/2016 [facility] URINE AND STOOL UA Bili Negative *NA* (04/03/16 10:57 PM) Negative 04/04/2016 [facility] URINE AND STOOL UA Glucose 150 mg/dL Negative mg/dL 04/04/2016 [facility] URINE AND STOOL UA Color Ltyellow 04/04/2016 [facility] URINE AND STOOL UA Turbidity Clear (04/03/16 10:57 PM) Clear 04/04/2016 [facility] URINE AND STOOL UA Spec Grav 1.017 <=1.030 04/04/2016 [facility] URINE AND STOOL UA Protein 100 mg/dL Negative mg/dL 04/04/2016 [facility] URINE AND STOOL UA pH 6.0 5.0 - 8.0 04/04/2016 [facility] CARDIAC ENZYMES Troponin-I <0.02 0.00 - 0.40 04/04/2016 [facility] CARDIAC ENZYMES CK MB 3.3 0.5 - 3.6 04/04/2016 [facility] CARDIAC ENZYMES Total CK 74 12 - 191 04/04/2016 [facility] CARDIAC ENZYMES CK MB Index 4.5 0.0 - 2.5 04/04/2016 [facility] CHEM PANEL eGFR 45 04/04/2016 Result Comment: The eGFR is calculated using the CKD-EPI formula. In most young, healthy individuals the eGFR will be >90 mL/min/1.73m2. The eGFR declines with age. An eGFR of 60-89 may be normal in some populations, particularly the elderly, for whom the CKD-EPI formula has not been extensively validated. Use of the eGFR is not recommended in the following populations:

Individuals with unstable creatinine concentrations, including patients and those with serious co-morbid conditions.

Patients with extremes in muscle mass or diet.

The data above are obtained from the National Kidney Disease Education Program (NKDEP) which additionally recommends that when the eGFR is used in patients with extremes of body mass index for purposes of drug dosing, the eGFR should be multiplied by the estimated BMI. [facility] CHEM PANEL Total Protein 6.9 6.4 - 8.4 04/04/2016 [facility] CHEM PANEL AGAP 12.2 10.0 - 20.0 04/04/2016 [facility] CHEM PANEL A/G Ratio 1.0 0.7 - 1.6 04/04/2016 [facility] CHEM PANEL B/C Ratio 20 6 - 25 04/04/2016 [facility] CHEM PANEL Globulin 3.5 2.7 - 4.2 04/04/2016 [facility] CHEM PANEL Bili Total 0.5 0.2 - 1.3 04/04/2016 [facility] CHEM PANEL Albumin Lvl 3.4 3.5 - 5.0 04/04/2016 [facility] CHEM PANEL ALT 15 0 - 65 04/04/2016 [facility] CHEM PANEL Alk Phos 75 39 - 136 04/04/2016 [facility] CHEM PANEL AST 10 0 - 37 04/04/2016 [facility] CHEM PANEL Calcium Lvl 8.5 8.5 - 10.5 04/04/2016 [facility] CHEM PANEL Chloride Lvl 105 95 - 109 04/04/2016 [facility] CHEM PANEL CO2 26 24 - 32 04/04/2016 [facility] CHEM PANEL Sodium Lvl 139 135 - 145 04/04/2016 [facility] CHEM PANEL Potassium Lvl 4.2 3.5 - 5.1 04/04/2016 [facility] CHEM PANEL BUN 32 7 - 22 04/04/2016 [facility] CHEM PANEL Creatinine Lvl 1.63 0.50 - 1.40 04/04/2016 [facility] CHEM PANEL Glucose Lvl 129 70 - 99 04/04/2016 [facility] HEMATOLOGY PTT 26.6 22.9 - 35.8 04/04/2016 [facility] HEMATOLOGY INR 0.99 0.85 - 1.17 04/04/2016 [facility] HEMATOLOGY PT 13.4 12.0 - 14.7 04/04/2016 [facility] MCH 28.3 27.0 - 31.0 04/04/2016 [facility] HEMATOLOGY MCHC 33.6 32.0 - 36.0 04/04/2016 [facility] HEMATOLOGY RDW 13.4 11.5 - 14.5 04/04/2016 [facility] HEMATOLOGY MPV 7.4 7.4 - 10.4 04/04/2016 [facility] HEMATOLOGY Platelet 195 133 - 450 04/04/2016 [facility] HEMATOLOGY WBC 13.0 3.7 - 10.4 04/04/2016 [facility] HEMATOLOGY RBC 4.37 4.70 - 6.10 04/04/2016 [facility] HEMATOLOGY Hgb 12.4 14.0 - 18.0 04/04/2016 [facility] HEMATOLOGY Hct 36.8 42.0 - 54.0 04/04/2016 [facility] HEMATOLOGY MCV 84.3 80.0 - 94.0 04/04/2016 [facility] HEMATOLOGY Eosinophils # 0.3 0.0 - 0.5 04/04/2016 [facility] HEMATOLOGY Monocytes # 0.8 0.0 - 0.8 04/04/2016 [facility] HEMATOLOGY Basophils # 0.1 0.0 - 0.2 04/04/2016 [facility] HEMATOLOGY Lymphocytes # 1.5 1.0 - 5.5 04/04/2016 [facility] HEMATOLOGY Lymphocytes 11.7 20.0 - 40.0 04/04/2016 [facility] HEMATOLOGY Eosinophils 2.2 0.0 - 4.0 04/04/2016 [facility] HEMATOLOGY Monocytes 6.4 2.0 - 12.0 04/04/2016 [facility] Segs-Bands # 10.3 1.5 - 8.1 04/04/2016 [facility] HEMATOLOGY Basophils 0.4 0.0 - 1.0 04/04/2016 [facility] HEMATOLOGY Segs 79.3 45.0 - 75.0 04/04/2016 [facility] Pathology Reports No Data Provided for This Section Diagnostic Reports Report Value Date Source Elbow 3 views DX HISTORY: - M25.521 Pain in right elbow TECHNIQUE: AP, lateral, and oblique views of the right elbow. COMPARISON: None available. FINDINGS: Normal mineralization and anatomic alignment of the bones without fracture or dislocation. [id number] osteoarthritic degenerative changes are present with at least one ossific body seen. There is no joint space effusion. Atherosclerotic vascular calcification is present. IMPRESSION: Degenerative change as above. No acute osseous injury. [id number] 06/08/2018 [facility] Chest 1view DX EXAM: XR CHEST 1 VIEW DATE: 02/15/2018 6:06 PM CDT INDICATION: - sob COMPARISON: 01/19/2018 TECHNIQUE: AP chest. FINDINGS: Lines, tubes and hardware: Left IJ central line is again seen with tip overlying the right atrium. Lungs and pleura: The right lung is again clear. There is interval haziness throughout the left lung with moderate left-sided pleural effusion. Surgical clips are again seen in the left axilla Heart and mediastinum: The heart size is normal for technique. The mediastinal contours are normal. Pulmonary vascularity is normal. IMPRESSION: Interval development of hazy opacity throughout the left lung with layering moderate effusion. Underlying infectious process cannot be completely excluded. SL: [id number] 02/15/2018 [facility] Foot 3 views bilateral DX Bilateral feet 2 views each: There has been interval amputation of the left 5th digit through the mid metatarsal shaft since 01/02/2018, and further amputation through the proximal shaft of the previously amputated left 1st metatarsal. Bandages overlying the operative sites are noted. Soft tissue ulcers are seen in the right heel and lateral to the right 5th MP joint. I could not rule out a small linear foreign body in the subcutaneous soft tissues of the right heel, versus artifact related to an overlying bandage. No fractures or acute osteomyelitis are demonstrated in either foot. Small vessel arterial calcifications are again noted. [id number] 02/05/2018 [facility] Chest 1view DX Patient Name: DINESH DIAZ : 1955 Age: 62 years, Male MR: [id number] Study: Chest 1view DX 01/19/2018 10:37 AM CDT Examination: Chest, AP. Indication: Line placement. Clinical information: - line placement. Comparison: Portable chest 01/09/2018 Findings: Lines/tubes: Left internal jugular tunneled central venous catheter is present with the tip projecting over the expected region of the right atrium. Right subclavian line is present with the tip projecting over the expected region of the superior vena cava. Heart: Normal cardiac silhouette. Vessels: The pulmonary vasculature is within normal limits. Atherosclerotic calcifications of the aortic arch. Mediastinum: No mediastinal or hilar mass or lymphadenopathy. Lungs: No parenchymal mass. No focal consolidation. Pleura: No pleural effusion. No pneumothorax. Soft tissues: Surgical clips project over the left shoulder. No axillary mass or lymphadenopathy. Bones: No acute osseous abnormality. Degenerative changes of the thoracic spine. IMPRESSION: No acute radiographic abnormality. SL: [id number] 01/19/2018 [facility] Chest 1 v for Placement DX Patient Name: DINESH DIAZ : 1955; Age: 62 years Male MR: [id number] Study: Chest 1 v for Placement DX Order Time: 01/09/2018 3:13 PM CDT Clinical Indication: Line Placement - Chest 1 view for line placement. COMPARISON: January 02, 2018 FINDINGS: Views: 1 SUPPORT LINES: Left central line tip is in the superior vena cava right atrial junction. LUNGS: There is normal lung volume. There are no suspicious interstitial/airspace opacities. There are no pleural effusions. There is no pneumothorax. The pulmonary vasculature is normal. Left upper hemithorax theodore. Left upper quadrant theodore. MEDIASTINUM: The cardiac silhouette is normal. The trachea is midline. BONES: There are no clinically significant osseous abnormalities noted. IMPRESSION: No radiographic evidence of acute pulmonary disease. SL: [id number] 01/09/2018 [facility] Foot 3 views bilateral DX PROCEDURE: Bilateral feet, 3 views each Clinical Indication: - ulcers. Bilateral foot ulcers Comparison: 12/12/2017 FINDINGS: LEFT: 3 views of the left foot were obtained utilizing portable equipment.. The images are judged to be of reasonable diagnostic quality. Soft tissue defect medial forefoot contiguous with surgical margin of the first metatarsal. Permeative bone loss is evident. Advanced bone destruction of the distal fifth metatarsal with overlying soft tissue loss. Additional permeative bone loss of the fifth toe phalanges not excluded. Interval amputation of the second toe. The second metatarsal head appears smooth. Extensive vascular calcifications noted. No subcutaneous gas. RIGHT: No fracture, dislocation or other acute skeletal abnormality. Moderate degenerative change of the first metatarsophalangeal joint. Slight mottled appearance of soft tissues lateral plantar forefoot. No subcutaneous gas. Extensive vascular calcifications. IMPRESSION: 1. LEFT: Active osteomyelitis surgical margin first metatarsal and distal fifth metatarsal. 2. RIGHT: Soft tissue ulcer/swelling lateral forefoot. No radiographic evidence for active osteomyelitis. SL: [id number] 01/02/2018 [facility] Brain wo contrast CT ADDENDUM: I have reviewed the head CT and agree with the previously described findings and impression. Clinical Indication: Dizziness and nausea with hypotension Comparison: 04/03/2016 TECHNIQUE: CT images were obtained from the foramen magnum to the vertex without the use of intravenous contrast on a multidetector CT. Coronal and sagittal reconstructions were obtained. CT radiation dose DLP: 901.26 mGy-cm FINDINGS: BRAIN PARENCHYMA: There are normal xavier-white interfaces, sulci and gyri. There are no focal mass lesions on this noncontrast head CT. There is no mass effect, midline shift or edema. There are no intra-axial or extra-axial fluid collections, intraventricular or intraparenchymal hemorrhage. The pineal, sellar, brainstem, cerebellum and skull base regions appear unremarkable. VENTRICLES: The lateral ventricles, third and fourth ventricles appear unremarkable. The basilar cisterns are normal. ORBITS, MASTOIDS AND PARANASAL SINUSES: The visualized orbits are unremarkable. The paranasal sinuses are unremarkable. The mastoid air cells are clear. SKULL: There are no osseous abnormalities. There is no soft tissue swelling noted. If there is further concern for intracranial pathology or acute stroke, MRI of the brain may be performed for complete assessment. IMPRESSION: Unremarkable noncontrast head CT with no mass, hemorrhage or subacute stroke. SL: [id number] 01/02/2018 [facility] Chest 1view DX Clinical Indication: - dizzy Comparison: 12/12/2017 FINDINGS: Single frontal radiograph of the chest is performed. Left-sided internal jugular dialysis catheter is unchanged in position. Heart size is within normal limits. Mediastinal contours are unremarkable. Lungs are clear without infiltrate or mass. No pleural effusion or pneumothorax. Left axillary region surgical clips. Partially visualized cervical spine fusion hardware. IMPRESSION: 1. No radiographic evidence for acute process in the chest. SL: [id number] 01/02/2018 [facility] CVC insert non-tunnel age 5+ yrs VR CENTRAL LINE PLACEMENT: HISTORY: Gangrene of the right foot. Central venous access is needed for antibiotics. The patient has an existing left jugular dialysis PermCath. PROCEDURE: Preliminary ultrasound of the right internal jugular vein showed the vessel to be occluded distally, however the jugulosubclavian confluence below the occlusion was patent with normal valvular motion demonstrated. A large patent and compressible right external jugular vein draining into the confluence was also demonstrated. Using maximum barrier sterile Seldinger technique, local anesthetic and ultrasound guidance, the right jugulosubclavian confluence was accessed with a micropuncture set. A J-guidewire was then placed following which the micropuncture sheath was removed and a 7 Welsh triple lumen central line placed and positioned under fluoroscopy with its tip at the cavoatrial junction. The catheter ports were then aspirated with good blood return, flushed and capped. The catheter hub was then fastened to the skin with a StatLoc device. The patient tolerated the procedure well without complications and was transferred back to his hospital room in stable condition. Spot imaging of the guidance procedures was done.The fluoroscopic time was 0.3 minutes (1 mGy). 12/19/2017 [facility] Ext Lower Arterial bilat w pressure US Please refer to heart lab report, located under Vascular in [facility]ARE4. 12/14/2017 [facility] Foot series DX Study: Right foot, 3 views Clinical Indication: - open right foot ulcer with infection, evaluate osteo; Comparison: None FINDINGS: Soft tissue gas is noted within the 2nd digit. There is destruction of the distal portion of the 2nd digit proximal phalanx with apparent subluxation at the proximal interphalangeal joint. There is also partial destruction of the 5th metatarsal head and possibly the base of the 5th proximal phalanx with an adjacent soft tissue ulcer. The great toe and right toe metatarsal have previously been amputated. The soft tissues are quite edematous. Extensive vascular calcifications are noted. SL: [id number] 12/12/2017 [facility] Chest 1view DX Clinical Indication: - dyspnea. Comparison: Chest radiograph 04/03/2016 Findings: Frontal view of the chest was obtained. Leads overlie the chest. Left tunneled line tip projects over the SVC. Electrocardiogram leads overlie the chest. The cardiac silhouette is at the upper limits of normal in size. There is no lobar consolidation, effusion or edema. No pneumothorax. No acute osseous abnormality. IMPRESSION: No acute cardiopulmonary abnormality. SL: [id number] 12/12/2017 [facility] XRAY CHEST 2 VIEWS IMPRESSION: Moderate left pleural effusion with left basilar atelectatic changes.Interval resolution of the previously seen small right pleural effusion. Signed By: Meghann Peres MD, 07/09/2017 1 1:13 AM EXAM: XR CHEST 2 VIEWS DATE: 07/09/2017 10:59 AM . INDICATION: decreased breath sounds LLL; f/u effusion COMPARISON: 07/04/2017 TECHNIQUE:PAand lateral chest radiographs DISCUSSION: There is moderate left pleural effusion with left basilar atelectaticchanges. No right pleural effusion. Upper lungs are clear. Surgicalclips in the left axillary and upper chest region. No pneumothorax. Thecardiomediastinal silhouette is grossly unremarkable. Interface, Rad/Mammog In - 07/09/2017 11:18 AM [employer] EXAM: XR CHEST 2 VIEWS DATE: 07/09/2017 10:59 AM . INDICATION: decreased breath sounds LLL; f/u effusion COMPARISON: 07/04/2017 TECHNIQUE: PA and lateral chest radiographs DISCUSSION: There is moderate left pleural effusion with left basilar atelectatic changes. No right pleural effusion. Upper lungs are clear. Surgical clips in the left axillary and upper chest region. No pneumothorax. The cardiomediastinal silhouette is grossly unremarkable. IMPRESSION IMPRESSION: Moderate left pleural effusion with left basilar atelectatic changes. Interval resolution of the previously seen small right pleural effusion. Signed By: Meghann Peres MD, 07/09/2017 11:13 AM 07/09/2017 [facility] U/S RENAL IMPRESSION:1.Mildly increased bilateral renal resistive indices, right greaterthan left, with no increased velocities to suggest renal arterialstenosis.2.Increased echogenicity of the kidneys can be seen with medical renaldisease.3.Bilateral moderate pleural effusions are present. Dictated By: Joseph Burleson MD, 07/07/2017 10:48 AM I have reviewed the study and agree with the findings in this report. Signed By: Meghann Peres MD, 07/07/2017 11:02 AM EXAM: US RENAL WITH DOPPLER DATE: 07/07/2017 9:59 AM INDICATION: evaluate kidneys in setting of worsening function. ADDITIONAL INFORMATION: Status post left upper pole partial nephrectomy. COMPARISON: Renal ultrasound 11/23/2016, CT abdomen pelvis 07/06/2017 TECHNIQUE: Multiplanar grayscale, color Doppler and spectral Dopplerultrasound of the kidneysand urinary bladder. FINDINGS: Right kidney:Size: 11.5 x 4.4 x 6.7 cm.Hydronephrosis: None.Echogenicity: Mildly hyperechoic.Calculi: None.Cysts/Masses: None. Left kidney:Size: 10.0 x 5.4 x 5.0 cm.Hydronephrosis: None.Echogenicity: Mildly hyperechoic.Calculi: None.Cysts/Masses: None. Bladder: Normal. Right Main Renal Artery: Patent. No elevated velocities. RI 0.82Right RA:Aorta Ratio: Normal. Right Intrarenal/Arcuate Arteries: Patent. Mild parvus et tardus.Right Superior RI: 0.8 Right Middle RI: 0.8 Right Inferior RI: 0.7 Left Main Renal Artery: Patent. No elevated velocities. RI 0.84Left RA:Aorta Ratio: Normal. Left Intrarenal/Arcuate Arteries: Patent. Mild parvus et tardus.Left Superior RI: 0.72 Left Middle RI: 0.74 Left Inferior RI: 0.74 Main Renal Veins: Patent. Free fluid: Moderate bilateral pleural effusions are present Other: None. Interface, Rad/Mammog In - 07/07/2017 11:06 AM CSTEXAM: US RENAL WITH DOPPLER DATE: 07/07/2017 9:59 AM INDICATION: evaluate kidneys in setting of worsening function. ADDITIONAL INFORMATION: Status post left upper pole partial nephrectomy. COMPARISON: Renal ultrasound 11/23/2016, CT abdomen pelvis 07/06/2017 TECHNIQUE: Multiplanar grayscale, color Doppler and spectral Doppler ultrasound of the kidneys and urinary bladder. FINDINGS: Right kidney: Size: 11.5 x 4.4 x 6.7 cm. Hydronephrosis: None. Echogenicity: Mildly hyperechoic. Calculi: None. Cysts/Masses: None. Left kidney: Size: 10.0 x 5.4 x 5.0 cm. Hydronephrosis: None. Echogenicity: Mildly hyperechoic. Calculi: None. Cysts/Masses: None. Bladder: Normal. Right Main Renal Artery: Patent. No elevated velocities. RI 0.82 Right RA:Aorta Ratio: Normal. Right Intrarenal/Arcuate Arteries: Patent. Mild parvus et tardus. Right Superior RI: 0.8 Right Middle RI: 0.8 Right Inferior RI: 0.7 Left Main Renal Artery: Patent. No elevated velocities. RI 0.84 Left RA:Aorta Ratio: Normal. Left Intrarenal/Arcuate Arteries: Patent. Mild parvus et tardus. Left Superior RI: 0.72 Left Middle RI: 0.74 Left Inferior RI: 0.74 Main Renal Veins: Patent. Free fluid: Moderate bilateral pleural effusions are present Other: None. IMPRESSION IMPRESSION: 1. Mildly increased bilateral renal resistive indices, right greater than left, with no increased velocities to suggest renal arterial stenosis. 2. Increased echogenicity of the kidneys can be seen with medical renal disease. 3. Bilateral moderate pleural effusions are present. Dictated By: Joseph Burleson MD, 07/07/2017 10:48 AM I have reviewed the study and agree with the findings in this report. Signed By: Meghann Peres MD, 07/07/2017 11:02 AM 07/07/2017 [facility] COMPUTED TOMOGRAPHY ABDOMEN AND PELVIS WITHOUT CONTRAST Addendum by Home Hernández MD on 07/07/2017 9:20 AMADDENDUM: Please note the patient has developed new splenichypodensities since the prior study, which likely represent multifocalinfarcts. Signed By: Home Hernández M.D., 07/07/2017 9:20 AM IMPRESSION: 1.No acute abdominal or pelvic abnormality.2.Moderate distention of the urinary bladder with wall thickening andtrabeculation/diverticula suggesting sequelae of chronic outletobstruction. Decompression may be indicated.3.Moderately distended fluid-filled stomach may relate togastroparesis.4.Moderate bilateral pleural effusions and anasarca suggestive ofvolume overload.5.Stable post surgical changes of partial left nephrectomy.6.Stable nonspecific sclerotic foci in the skeleton.7.Cardiomegaly and extensive coronary artery and aorticatherosclerotic disease. Signed By: Home Hernández M.D., 07/07/2017 9:11 AM EXAM:CT ABDOMEN AND PELVIS WITHOUT CONTRAST DATE: 07/06/2017 4:14 PM INDICATION: hx of RCC s/p L partial nephrectomy in setting of decliningrenal function. ADDITIONAL INFORMATION: None. TECHNIQUE:CT abdomen and pelvis performed without IV contrast.Multiplanar sagittal and coronal reformats were performed. COMPARISON: CT 01/27/2017 DISCUSSION:Please note that evaluation of solid organs and vasculature is limitedwithout intravenous contrast. Visualized lower thorax: Moderate bilateral pleural effusions withbasilar atelectatic changes. There is mild cardiomegaly with extensivecoronary artery calcification. Liver: Normal density and contour.No obvious hepatic masses allowing forlimitations without intravenous contrast.. Biliary system:No evidence of biliary ductal dilation.The common bileduct is not dilated. Gallbladder: Grossly unremarkable. Adrenals:Normal. Spleen:Multifocal new areas of hypoattenuation in the superior and midaspect of the spleen suggestive of splenic infarcts. Pancreas:Mildly atrophic without other focal abnormality. Stomach and duodenum:Stomach is moderately distended with fluid. Noduodenal diverticula. Kidneys:No obvious mass or hydronephrosis.Postoperative changes ofpartial left nephrectomy are unchanged. Bladder:Moderately distended with wall thickening and trabeculationsuggesting chronic bladder outlet obstruction. Pelvis: Prostate is atrophic.No pelvic lymphadenopathy. GI tract:Normal caliber without evidence of obstruction.The appendixhas a normal appearance. Lymph nodes:No adenopathy is seen. V essels:Moderate aortoiliac atherosclerotic change. Peritoneum/retroperitoneum:No free air or ascites. No organized fluidcollections. Soft tissues:Anasarca. Regional skeleton:No osseous destructive lesions. Stable 1.6 cmsclerotic focus in the left ilium. Additional smaller sclerotic foci inthe skeleton also appear unchanged. Interface, Rad/Mammog In - 07/07/2017 9:15 AM CSTEXAM: CT ABDOMEN AND PELVIS WITHOUT CONTRAST DATE: 07/06/2017 4:14 PM INDICATION: hx of RCC s/p L partial nephrectomy in setting of declining renal function. ADDITIONAL INFORMATION: None. TECHNIQUE: CT abdomen and pelvis performed without IV contrast. Multiplanar sagittal and coronal reformats were performed. COMPARISON: CT 01/27/2017 DISCUSSION: Please note that evaluation of solid organs and vasculature is limited without intravenous contrast. Visualized lower thorax: Moderate bilateral pleural effusions with basilar atelectatic changes. There is mild cardiomegaly with extensive coronary artery calcification. Liver: Normal density and contour.No obvious hepatic masses allowing for limitations without intravenous contrast.. Biliary system:No evidence of biliary ductal dilation.The common bile duct is not dilated. Gallbladder: Grossly unremarkable. Adrenals: Normal. Spleen: Multifocal new areas of hypoattenuation in the superior and mid aspect of the spleen suggestive of splenic infarcts. Pancreas: Mildly atrophic without other focal abnormality. Stomach and duodenum:Stomach is moderately distended with fluid. No duodenal diverticula. Kidneys: No obvious mass or hydronephrosis. Postoperative changes of partial left nephrectomy are unchanged. Bladder:Moderately distended with wall thickening and trabeculation suggesting chronic bladder outlet obstruction. Pelvis: Prostate is atrophic.No pelvic lymphadenopathy. GI tract: Normal caliber without evidence of obstruction.The appendix has a normal appearance. Lymph nodes: No adenopathy is seen. Vessels: Moderate aortoiliac atherosclerotic change. Peritoneum/retroperitoneum:No free air or ascites. No organized fluid collections. Soft tissues: Anasarca. Regional skeleton: No osseous destructive lesions. Stable 1.6 cm sclerotic focus in the left ilium. Additional smaller sclerotic foci in the skeleton also appear unchanged. IMPRESSION IMPRESSION: 1. No acute abdominal or pelvic abnormality. 2. Moderate distention of the urinary bladder with wall thickening and trabeculation/diverticula suggesting sequelae of chronic outlet obstruction. Decompression may be indicated. 3. Moderately distended fluid-filled stomach may relate to gastroparesis. 4. Moderate bilateral pleural effusions and anasarca suggestive of volume overload. 5. Stable post surgical changes of partial left nephrectomy. 6. Stable nonspecific sclerotic foci in the skeleton. 7. Cardiomegaly and extensive coronary artery and aortic atherosclerotic disease. Signed By: Home Hernández M.D., 07/07/2017 9:11 AM 07/06/2017 [facility] XRAY SPINE CER 2-3 AP- LAT- ODONTOID IMPRESSION:1. Status post posterior cervical fusion with 2 rods and interpedicularscrews from C3 to C6. 2. No evidence of hardware failure or loosening. Dictated By: Go David MD, 02/06/2017 8:51 AM I have reviewed the study and agree with the findings in this report. Signed By: Jose Garvin MD, 02/06/2017 9:47 AM XRAY SPINE CER 2-3 AP- LAT- ODONTOID - 3 view(s) HISTORY:s/p C 3-6 posterior cervical fusion, decompression COMPARISON: Cervical spine x-ray on 11/10/2016 DISCUSSION: Bone:On the lateral view, the skull base to C7 is visualized.Straightening of the normal cervical lordosisSurgical fixation of C3-C6. No evidence of hardware loosening orfailure. Multiple surgical clips in the left lateral neck.Visualized portions of the odontoid process are unremarkable. Discs:The disc spaces are well maintained. Joints:Moderate to severe degenerative changes of the right- sided uncovertebraljoints. Interface, Rad/Mammog In - 02/06/2017 9:52 AM CDT XRAY SPINE CER 2-3 AP- LAT- ODONTOID - 3 view(s) HISTORY: s/p C 3-6 posterior cervical fusion, decompression COMPARISON: Cervical spine x-ray on 11/10/2016 DISCUSSION: Bone: On the lateral view, the skull base to C7 is visualized. Straightening of the normal cervical lordosis Surgical fixation of C3-C6. No evidence of hardware loosening or failure. Multiple surgical clips in the left lateral neck. Visualized portions of the odontoid process are unremarkable. Discs: The disc spaces are well maintained. Joints: Moderate to severe degenerative changes of the right-sided uncovertebral joints. IMPRESSION: 1. Status post posterior cervical fusion with 2 rods and interpedicular screws from C3 to C6. 2. No evidence of hardware failure or loosening. Dictated By: Go David MD, 02/06/2017 8:51 AM I have reviewed the study and agree with the findings in this report. Signed By: Jose Garvin MD, 02/06/2017 9:47 AM 02/03/2017 [facility] Carotid artery Doppler bilat US EXAM: Ultrasound carotid HISTORY: Acute cerebral accident COMPARISON: None TECHNIQUE: Xavier-scale, color Doppler and spectral Doppler of the carotid arteries was performed. Any reported ICA stenoses indirectly reference the distal internal carotid diameter as the denominator for the stenosis measurement, utilizing consensus panel criteria. FINDINGS: RIGHT: Plaque along the common carotid artery, carotid bulb and proximal internal carotid artery. ICA PSV 131 cm/sec CCA PSV 110 cm/sec ICA/CCA ratio 1.6 Vertebral flow is antegrade. External carotid artery is patent. LEFT: Plaque along the common carotid artery, carotid bulb and proximal internal carotid artery. ICA PSV 56 cm/sec CCA PSV 83 cm/sec ICA/CCA ratio 0.7 Vertebral flow is antegrade. External carotid artery is patent. IMPRESSION: 1. 50-69% stenosis of the proximal right internal carotid artery. 2. Patent left carotid arteries without hemodynamically significant stenosis seen. SL: USPARE-PC 04/04/2016 [facility] Brain wo contrast MRI Patient Name: DINESH DIAZ : 1955; Age: 60 years Male MR: [id number] Study: Brain wo contrast MRI 04/04/2016 1:15 AM CDT Clinical Indication: Weakness. right sided arm and leg weakness. COMPARISON: Computed axial tomography scan 04/03/2016. TECHNIQUE: MRI of the brain is performed without gadolinium contrast. Multiplanar T1, T2, FLAIR and diffusion weighted imaging are submitted. Full and complete exam was performed. FINDINGS: BRAIN PARENCHYMA: There is mild generalized cortical atrophy. Moderate nonspecific periventricular white matter foci of increased T2 and FLAIR signal are seen, likely related to small vessel disease. There is no mass effect or midline shift. There are no extra-axial fluid collections. The corpus callosum appears normal. There is no diffusion weighted imaging or ADC map abnormality to suggest acute/subacute ischemia. There is no magnetic susceptibility to suggest recent or remote intracranial hemorrhage. FLAIR signal abnormality limits assessment for hemorrhage. Small area of susceptibility artifact in the left medial temporal lobe seen best in a area of blooming on series 9 image 12. CEREBELLOPONTINE REGIONS AND SKULL BASE: The cerebellopontine angles appear normal. The skull base, craniocervical junction, and brainstem are normal. The optic chiasm is normal. The sella and pineal regions are normal. VENTRICLES: The ventricles are normal in size and configuration. The basilar cisterns are normal. VESSELS: The expected intracranial flow voids are present. ORBITS, VISUALIZED PARANASAL SINUSES AND MASTOIDS: The visualized orbits are normal. Mild ethmoid sinus, frontal sinus, maxillary sinus mucosal thickening. The mastoid air cells are clear. IMPRESSION: 1. No acute intracranial abnormality without acute stroke, acute hemorrhage or mass. 2. Generalized brain parenchymal atrophy with associated nonspecific periventricular white matter disease changes/small vessel disease. 3. Small area of susceptibility artifact in the left medial temporal lobe may represent a focus of chronic hemorrhage or cavernous angioma. 3 to four-month follow-up magnetic resonance imaging with gadolinium is recommended to document stability. SL: [id number] 04/04/2016 [facility] Brain wo contrast CT I have reviewed this examination and I concur. Patient Name: DINESH DIAZ : 1955; Age: 60 years y/o Male MR: [id number] Study: Brain wo contrast CT 04/03/2016 8:37 PM CDT Clinical Indication: Weakness; Comparison: None TECHNIQUE: CT images were obtained from the foramen magnum to the vertex without the use of intravenous contrast on a multidetector CT. Coronal and sagittal reconstructions were obtained. FINDINGS: BRAIN PARENCHYMA: There are normal xavier-white interfaces. No evidence for subarachnoid, intraparenchymal or intraventricular hemorrhage. No significant extra-axial fluid collection, mass effect or shift. No evidence for an acute infarction. No mass lesions identified about the brain. VENTRICLES: Ventricles and sulci are within normal limits for the patient's age. ORBITS, MASTOIDS AND PARANASAL SINUSES: The visualized orbits and paranasal sinuses are unremarkable. The mastoid air cells are clear. SKULL: There are no osseous abnormalities. If there is further concern for intracranial pathology or acute stroke, MRI of the brain may be performed for complete assessment. IMPRESSION: Unremarkable noncontrast head CT. SL: KAYCEE 04/03/2016 [facility] Chest 1view DX Patient Name: DINESH DIAZ : 1955; Age: 60 years y/o Male MR: [id number] Study: Chest 1view DX 04/03/2016 7:39 PM CDT Ordering Physician: Clinical Indication: Chest pain; Comparison: None 1 view chest Lungs are clear. Cardiomediastinal silhouette normal. There is no pleural effusion or pneumothorax. No osseous abnormalities. IMPRESSION: No acute finding. SL: KAYCEE 04/03/2016 [facility] Consultation Notes No Data Provided for This Section Discharge Summaries No Data Provided for This Section History and Physicals No Data Provided for This Section Vital Signs Vital Sign Value Date Comments Source Systolic (mm Hg) 169 02/16/2018 [facility] Diastolic (mm Hg) 68 02/16/2018 [facility] Temperature Oral (F) 97.5 F 02/16/2018 [facility] Heart Rate 73 02/16/2018 [facility] Respitory Rate 18 02/16/2018 [facility] Systolic (mm Hg) 110 02/16/2018 [facility] Diastolic (mm Hg) 94 02/16/2018 [facility] Respitory Rate 17 02/16/2018 [facility] Temperature Oral (F) 98.5 F 02/16/2018 [facility] Heart Rate 75 02/16/2018 [facility] Temperature Oral (F) 97.6 F 02/16/2018 [facility] Systolic (mm Hg) 145 02/16/2018 [facility] Diastolic (mm Hg) 82 02/16/2018 [facility] Respitory Rate 16 02/16/2018 [facility] Heart Rate 62 02/16/2018 [facility] BMI Calculated 20.27 02/16/2018 [facility] Height 175.26 cm 02/16/2018 [facility] Weight 62.273 02/16/2018 [facility] Systolic (mm Hg) 127 02/16/2018 SNF: [facility] Diastolic (mm Hg) 79 02/16/2018 SNF: [facility] Systolic (mm Hg) 125 02/15/2018 SNF: [facility] Diastolic (mm Hg) 80 02/15/2018 SNF: [facility] Heart Rate 64 {beats}/min 02/15/2018 SNF: [facility] Systolic (mm Hg) 122 02/15/2018 SNF: [facility] Diastolic (mm Hg) 88 02/15/2018 SNF: [facility] Systolic (mm Hg) 118 02/15/2018 [facility] Diastolic (mm Hg) 83 02/15/2018 [facility]: [facility] Systolic (mm Hg) 128 02/15/2018 [facility]: [facility] Diastolic (mm Hg) 60 02/15/2018 [facility]: [facility] Heart Rate 83 {beats}/min 02/15/2018 [facility]F: [facility] Respitory Rate 20 02/14/2018 [facility]: [facility] Systolic (mm Hg) 122 02/14/2018 [facility]: [facility] Diastolic (mm Hg) 65 02/14/2018 SNF: [facility] Temperature Oral (F) 96.9 F 02/14/2018 SNF: [facility] Heart Rate 76 {beats}/min 02/14/2018 [facility]: [facility] Systolic (mm Hg) 121 02/14/2018 [facility]: [facility] Diastolic (mm Hg) 67 02/14/2018 [facility]: [facility] Heart Rate 67 {beats}/min 02/14/2018 [facility]: [facility] Systolic (mm Hg) 115 02/14/2018 [facility]: [facility] Diastolic (mm Hg) 80 02/14/2018 [facility]: [facility] Systolic (mm Hg) 118 02/14/2018 [facility]: [facility] Diastolic (mm Hg) 85 02/14/2018 [facility]: [facility] Systolic (mm Hg) 134 02/14/2018 [facility]: [facility] Diastolic (mm Hg) 65 02/14/2018 [facility]: [facility] Systolic (mm Hg) 175 02/13/2018 SN[facility]: [facility] Diastolic (mm Hg) 60 02/13/2018 SNF: [facility] Heart Rate 73 {beats}/min 02/13/2018 [facility]: [facility] Systolic (mm Hg) 175 02/13/2018 [facility]: [facility] Diastolic (mm Hg) 60 02/13/2018 [facility]: [facility] Weight 125.6 02/13/2018 [facility]: [facility] Height 69 02/13/2018 [facility]: [facility] Heart Rate 67 {beats}/min 02/13/2018 [facility]: [facility] Systolic (mm Hg) 162 02/13/2018 [facility]: [facility] Diastolic (mm Hg) 91 02/13/2018 [facility]: [facility] Heart Rate 66 {beats}/min 02/12/2018 [facility]: [facility] Systolic (mm Hg) 158 02/12/2018 [facility]: [facility] Diastolic (mm Hg) 84 02/12/2018 [facility]: [facility] Respitory Rate 20 02/12/2018 [facility]: [facility] Systolic (mm Hg) 127 02/12/2018 [facility]: [facility] Diastolic (mm Hg) 79 02/12/2018 [facility]: [facility] Temperature Oral (F) 98.7 F 02/12/2018 [facility]: [facility] Heart Rate 87 {beats}/min 02/12/2018 [facility]: [facility] Respitory Rate 18 02/12/2018 SNF: [facility] Temperature Oral (F) 98.8 F 02/12/2018 [facility]: [facility] Systolic (mm Hg) 121 02/12/2018 [facility]: [facility] Diastolic (mm Hg) 60 02/12/2018 [facility]: [facility] Heart Rate 76 {beats}/min 02/12/2018 [facility]: [facility] Systolic (mm Hg) 122 02/11/2018 [facility]: [facility] Diastolic (mm Hg) 74 02/11/2018 [facility]: [facility] Heart Rate 64 {beats}/min 02/11/2018 [facility]: [facility] Systolic (mm Hg) 122 02/11/2018 [facility]: [facility] Diastolic (mm Hg) 74 02/11/2018 [facility]: [facility] Systolic (mm Hg) 155 02/11/2018 [facility]: [facility] Diastolic (mm Hg) 87 02/11/2018 [facility]: [facility] Heart Rate 64 {beats}/min 02/11/2018 [facility]: [facility] Systolic (mm Hg) 150 02/11/2018 [facility]: [facility] Diastolic (mm Hg) 89 02/11/2018 [facility]: [facility] Systolic (mm Hg) 147 02/10/2018 [facility]: [facility] Diastolic (mm Hg) 94 02/10/2018 [facility]: [facility] Heart Rate 72 {beats}/min 02/10/2018 [facility]: [facility] Systolic (mm Hg) 143 02/10/2018 [facility]: [facility] Diastolic (mm Hg) 84 02/10/2018 [facility]: [facility] Temperature Oral (F) 98.8 F 02/10/2018 [facility]: [facility] Heart Rate 84 {beats}/min 02/10/2018 [facility]: [facility] Respitory Rate 20 02/10/2018 [facility]: [facility] Systolic (mm Hg) 139 02/10/2018 [facility]: [facility] Diastolic (mm Hg) 62 02/10/2018 [facility]: [facility] Respitory Rate 18 02/10/2018 [facility] Systolic (mm Hg) 165 02/10/2018 [facility] Diastolic (mm Hg) 75 02/10/2018 [facility] Heart Rate 70 02/10/2018 [facility] Heart Rate 75 02/10/2018 [facility] Temperature Oral (F) 97.5 F 02/10/2018 [facility] Systolic (mm Hg) 176 02/10/2018 [facility] Diastolic (mm Hg) 70 02/10/2018 [facility] Respitory Rate 18 02/10/2018 [facility] Systolic (mm Hg) 172 02/09/2018 [facility] Diastolic (mm Hg) 70 02/09/2018 [facility] Heart Rate 68 02/09/2018 [facility] Respitory Rate 18 02/09/2018 [facility] Temperature Oral (F) 98.8 F 02/09/2018 [facility] Temperature Oral (F) 98.0 F 02/09/2018 [facility] BMI Calculated 18.97 02/02/2018 [facility] Height 175.26 cm 02/02/2018 [facility] Weight 58.267 02/02/2018 [facility] Temperature Oral (F) 97.4 F 01/29/2018 [facility] Heart Rate 76 01/29/2018 [facility] Systolic (mm Hg) 181 01/29/2018 [facility] Diastolic (mm Hg) 80 01/29/2018 [facility] Respitory Rate 18 01/29/2018 [facility] Temperature Oral (F) 97.4 F 01/29/2018 [facility] Respitory Rate 19 01/29/2018 [facility] Heart Rate 74 01/29/2018 [facility] Systolic (mm Hg) 167 01/29/2018 [facility] Diastolic (mm Hg) 70 01/29/2018 [facility] Heart Rate 64 01/29/2018 [facility] Systolic (mm Hg) 105 01/29/2018 [facility] Diastolic (mm Hg) 55 01/29/2018 [facility] Respitory Rate 18 01/29/2018 [facility] Temperature Oral (F) 97.8 F 01/29/2018 [facility] Height 175.26 cm 01/03/2018 [facility] BMI Calculated 18.38 01/02/2018 [facility] Height 175.26 cm 01/02/2018 [facility] Weight 56.449 01/02/2018 [facility] Systolic (mm Hg) 170 12/21/2017 [facility] Diastolic (mm Hg) 85 12/21/2017 [facility] Respitory Rate 18 12/21/2017 [facility] Heart Rate 70 12/21/2017 [facility] Temperature Oral (F) 97.7 F 12/21/2017 [facility] Temperature Oral (F) 98.6 F 12/21/2017 [facility] Heart Rate 69 12/21/2017 [facility] Systolic (mm Hg) 172 12/21/2017 [facility] Diastolic (mm Hg) 86 12/21/2017 [facility] Respitory Rate 18 12/21/2017 [facility] Heart Rate 65 12/21/2017 [facility] Systolic (mm Hg) 170 12/21/2017 [facility] Diastolic (mm Hg) 80 12/21/2017 [facility] Respitory Rate 18 12/21/2017 [facility] Temperature Oral (F) 98.4 F 12/21/2017 [facility] BMI Calculated 18.87 12/13/2017 [facility] Height 177.8 cm 12/13/2017 [facility] Weight 59.659 12/13/2017 [facility] Weight 61.364 12/12/2017 [facility] Height 177.8 cm 12/12/2017 [facility] BMI Calculated 19.41 12/12/2017 [facility] Systolic (mm Hg) 144 11/30/2017 SNF: [facility] Diastolic (mm Hg) 74 11/30/2017 [facility]F: [facility] Heart Rate 63 {beats}/min 11/30/2017 [facility]: [facility] Systolic (mm Hg) 149 11/30/2017 [facility]: [facility] Diastolic (mm Hg) 84 11/30/2017 [facility]: [facility] Heart Rate 66 {beats}/min 11/30/2017 [facility]: [facility] Systolic (mm Hg) 138 11/29/2017 [facility]: [facility] Diastolic (mm Hg) 72 11/29/2017 [facility]: [facility] Heart Rate 61 {beats}/min 11/29/2017 [facility]: [facility] Systolic (mm Hg) 144 11/28/2017 [facility]: [facility] Diastolic (mm Hg) 68 11/28/2017 [facility]: [facility] Heart Rate 60 {beats}/min 11/28/2017 [facility]: [facility] Respitory Rate 20 11/28/2017 [facility]: [facility] Systolic (mm Hg) 152 11/28/2017 [facility]: [facility] Diastolic (mm Hg) 76 11/28/2017 [facility]: [facility] Temperature Oral (F) 97.6 F 11/28/2017 [facility]: [facility] Heart Rate 74 {beats}/min 11/28/2017 [facility]: [facility] Respitory Rate 20 11/28/2017 [facility]: [facility] Systolic (mm Hg) 152 11/28/2017 [facility]: [facility] Diastolic (mm Hg) 76 11/28/2017 [facility]: [facility] Temperature Oral (F) 97.6 F 11/28/2017 [facility]: [facility] Heart Rate 74 {beats}/min 11/28/2017 [facility]: [facility] Systolic (mm Hg) 181 11/28/2017 SN[facility]: [facility] Diastolic (mm Hg) 93 11/28/2017 [facility]: [facility] Heart Rate 72 {beats}/min 11/28/2017 [facility]: [facility] Systolic (mm Hg) 208 11/27/2017 SN[facility]: [facility] Diastolic (mm Hg) 82 11/27/2017 SN[facility]: [facility] Heart Rate 80 {beats}/min 11/27/2017 [facility]: [facility] Systolic (mm Hg) 146 11/27/2017 [facility]: [facility] Diastolic (mm Hg) 76 11/27/2017 [facility]: [facility] Heart Rate 65 {beats}/min 11/27/2017 [facility]: [facility] Systolic (mm Hg) 160 11/26/2017 [facility]: [facility] Diastolic (mm Hg) 78 11/26/2017 [facility]: [facility] Heart Rate 63 {beats}/min 11/26/2017 [facility]: [facility] Systolic (mm Hg) 132 11/26/2017 [facility]: [facility] Diastolic (mm Hg) 78 11/26/2017 [facility]: [facility] Heart Rate 70 {beats}/min 11/26/2017 [facility]: [facility] Systolic (mm Hg) 158 11/25/2017 SN[facility]: [facility] Diastolic (mm Hg) 78 11/25/2017 [facility]: [facility] Heart Rate 68 {beats}/min 11/25/2017 [facility]: [facility] Respitory Rate 18 11/25/2017 [facility]: [facility] Systolic (mm Hg) 121 11/25/2017 [facility]: [facility] Diastolic (mm Hg) 65 11/25/2017 [facility] [facility] [place] Temperature Oral (F) 98.8 F 11/25/2017 [facility]: [facility] [place] Heart Rate 77 {beats}/min 11/25/2017 [facility]: [facility] [place] Respitory Rate 20 11/25/2017 SN[facility]: [facility] [place] Systolic (mm Hg) 143 11/25/2017 SN[facility]: [facility] [place] Diastolic (mm Hg) 76 11/25/2017 SN[facility]: [facility] [place] Temperature Oral (F) 97.7 F 11/25/2017 SN[facility]: [facility] [place] Heart Rate 80 {beats}/min 11/25/2017 [facility]: [facility] [place] Systolic (mm Hg) 177 11/25/2017 [facility]: [facility] [place] Diastolic (mm Hg) 73 11/25/2017 [facility]: [facility] [place] Heart Rate 79 {beats}/min 11/25/2017 [facility]: [facility] [place] Weight 127 11/24/2017 [facility]: [facility] [place] Systolic (mm Hg) 136 10/11/2017 [facility]: [facility] [place] Diastolic (mm Hg) 66 10/11/2017 [facility]: [facility] [place] Heart Rate 64 {beats}/min 10/11/2017 [facility]: [facility] [place] Systolic (mm Hg) 143 10/11/2017 [facility]: [facility] [place] Diastolic (mm Hg) 67 10/11/2017 SN[facility]: [facility] [place] Temperature Oral (F) 98.8 F 10/11/2017 SN[facility]: [facility] [place] Heart Rate 67 {beats}/min 10/11/2017 [facility]: [facility] [place] Systolic (mm Hg) 141 10/11/2017 SN[facility]: [facility] [place] Diastolic (mm Hg) 62 10/11/2017 [facility]: [facility] [place] Heart Rate 60 {beats}/min 10/11/2017 [facility]: [facility] [place] Systolic (mm Hg) 130 10/10/2017 [facility]: [facility] [place] Diastolic (mm Hg) 64 10/10/2017 [facility]: [facility] [place] Heart Rate 66 {beats}/min 10/10/2017 [facility]: [facility] [place] Systolic (mm Hg) 143 10/10/2017 [facility]: [facility] [place] Diastolic (mm Hg) 69 10/10/2017 [facility]: [facility] [place] Heart Rate 60 {beats}/min 10/10/2017 [facility]: [facility] [place] Systolic (mm Hg) 127 10/09/2017 SN[facility]: [facility] [place] Diastolic (mm Hg) 60 10/09/2017 [facility]: [facility] [place] Heart Rate 62 {beats}/min 10/09/2017 [facility]: [facility] [place] Systolic (mm Hg) 123 10/09/2017 [facility]: [facility] [place] Diastolic (mm Hg) 74 10/09/2017 [facility]: [facility] [place] Heart Rate 69 {beats}/min 10/09/2017 [facility]: [facility] [place] Systolic (mm Hg) 160 10/08/2017 SN[facility]: [facility] [place] Diastolic (mm Hg) 70 10/08/2017 [facility]: [facility] [place] Heart Rate 60 {beats}/min 10/08/2017 [facility]: [facility] [place] Systolic (mm Hg) 142 10/07/2017 SN[facility]: [facility] [place] Diastolic (mm Hg) 80 10/07/2017 [facility]: [facility] [place] Temperature Oral (F) 98.4 F 10/07/2017 [facility]: [facility] [place] Heart Rate 65 {beats}/min 10/07/2017 [facility]: [facility] [place] Systolic (mm Hg) 160 10/07/2017 SN[facility]: [facility] [place] Diastolic (mm Hg) 84 10/07/2017 [facility]: [facility] [place] Heart Rate 60 {beats}/min 10/07/2017 [facility]: [facility] [place] Systolic (mm Hg) 160 10/07/2017 [facility]: [facility] [place] Diastolic (mm Hg) 73 10/07/2017 [facility]: [facility] [place] Heart Rate 60 {beats}/min 10/07/2017 [facility]: [facility] [place] Respitory Rate 18 10/06/2017 [facility]: [facility] [place] Systolic (mm Hg) 132 10/06/2017 [facility]: [facility] [place] Diastolic (mm Hg) 76 10/06/2017 [facility]: [facility] [place] Temperature Oral (F) 98.7 F 10/06/2017 [facility]: [facility] [place] Heart Rate 76 {beats}/min 10/06/2017 [facility]: [facility] [place] Respitory Rate 18 10/05/2017 [facility]: [facility] [place] Temperature Oral (F) 98.3 F 10/05/2017 [facility]: [facility] [place] Systolic (mm Hg) 143 10/05/2017 [facility]: [facility] [place] Diastolic (mm Hg) 60 10/05/2017 [facility]: [facility] [place] Heart Rate 60 {beats}/min 10/05/2017 [facility]: [facility] [place] Heart Rate 60 {beats}/min 10/05/2017 [facility]: [facility] [place] Systolic (mm Hg) 153 10/05/2017 [facility]: [facility] [place] Diastolic (mm Hg) 74 10/05/2017 [facility]: [facility] [place] Heart Rate 64 {beats}/min 10/05/2017 [facility]: [facility] [place] Weight 137.3 10/04/2017 SN[facility]: [facility] [place] Height 69 10/04/2017 [facility]: [facility] [place] Systolic (mm Hg) 170 10/04/2017 [facility]: [facility] [place] Diastolic (mm Hg) 70 10/04/2017 [facility]: [facility] [place] Heart Rate 62 {beats}/min 10/04/2017 [facility]: [facility] [place] Respitory Rate 18 10/03/2017 [facility]: [facility] [place] Systolic (mm Hg) 116 10/03/2017 [facility]: [facility] [place] Diastolic (mm Hg) 52 10/03/2017 SN[facility]: [facility] [place] Temperature Oral (F) 98.7 F 10/03/2017 SN[facility]: [facility] [place] Heart Rate 62 {beats}/min 10/03/2017 [facility]: [facility] [place] Heart Rate 58 {beats}/min 10/03/2017 [facility]: [facility] [place] Systolic (mm Hg) 155 10/03/2017 [facility]: [facility] [place] Diastolic (mm Hg) 67 10/03/2017 [facility]: [facility] [place] Heart Rate 61 {beats}/min 10/03/2017 [facility]: [facility] [place] Systolic (mm Hg) 118 10/02/2017 [facility]: [facility] [place] Diastolic (mm Hg) 96 10/02/2017 [facility]: [facility] [place] Heart Rate 60 {beats}/min 10/02/2017 [facility]: [facility] [place] Systolic (mm Hg) 123 10/01/2017 SN[facility]: [facility] [place] Diastolic (mm Hg) 6 10/01/2017 [facility]: [facility] [place] Heart Rate 60 {beats}/min 10/01/2017 SN[facility]: [facility] [place] Systolic (mm Hg) 130 09/30/2017 SN[facility]: [facility] [place] Diastolic (mm Hg) 58 09/30/2017 [facility]: [facility] [place] Temperature Oral (F) 98.4 F 09/30/2017 SN[facility]: [facility] [place] Temperature Oral (F) 98.3 F 09/30/2017 [facility]: [facility] [place] Systolic (mm Hg) 125 09/30/2017 SN[facility]: [facility] [place] Diastolic (mm Hg) 60 09/30/2017 SN[facility]: [facility] [place] Heart Rate 60 {beats}/min 09/30/2017 [facility]: [facility] [place] Heart Rate 60 {beats}/min 09/30/2017 [facility]: [facility] [place] Systolic (mm Hg) 125 09/30/2017 [facility]: [facility] [place] Diastolic (mm Hg) 60 09/30/2017 [facility]: [facility] [place] Heart Rate 60 {beats}/min 09/30/2017 SN[facility]: [facility] [place] Systolic (mm Hg) 136 09/29/2017 SN[facility]: [facility] [place] Diastolic (mm Hg) 60 09/29/2017 [facility]: [facility] [place] Heart Rate 54 {beats}/min 09/29/2017 [facility]: [facility] [place] Systolic (mm Hg) 198 09/29/2017 [facility]: [facility] [place] Diastolic (mm Hg) 78 09/29/2017 [facility]: [facility] [place] Heart Rate 60 {beats}/min 09/29/2017 [facility]: [facility] [place] Weight 137.3 09/28/2017 [facility]: [facility] [place] Height 69 09/28/2017 SN[facility]: [facility] [place] Respitory Rate 18 09/28/2017 SN[facility]: [facility] [place] Temperature Oral (F) 99.1 F 09/28/2017 SN[facility]: [facility] [place] Heart Rate 60 {beats}/min 09/28/2017 [facility]: [facility] [place] Systolic (mm Hg) 181 09/28/2017 [facility]: [facility] [place] Diastolic (mm Hg) 74 09/28/2017 [facility]: [facility] [place] Heart Rate 60 {beats}/min 09/28/2017 [facility]: [facility] [place] Systolic (mm Hg) 139 09/27/2017 SN[facility]: [facility] [place] Diastolic (mm Hg) 78 09/27/2017 [facility]: [facility] [place] Temperature Oral (F) 98.1 F 09/27/2017 SN[facility]: [facility] [place] Heart Rate 56 {beats}/min 09/27/2017 SN[facility]: [facility] [place] Respitory Rate 18 09/27/2017 [facility]: [facility] [place] Height 69 09/07/2017 SN[facility]: [facility] [place] Weight 137.3 09/07/2017 SN[facility]: [facility] [place] Systolic (mm Hg) 133 07/12/2017 [facility] Diastolic (mm Hg) 81 07/12/2017 [facility] Heart Rate 57 07/12/2017 [facility] Temperature Oral (F) 36.56 Zhanna 07/12/2017 [facility] Respitory Rate 20 07/12/2017 [facility] Weight 73.392 07/12/2017 [facility] BMI Calculated 23.89 07/12/2017 [facility] Height 175.3 cm 07/05/2017 [facility] Systolic (mm Hg) 160 04/05/2016 [facility] Diastolic (mm Hg) 91 04/05/2016 [facility] Systolic (mm Hg) 183 04/05/2016 [facility] Diastolic (mm Hg) 80 04/05/2016 [facility] Temperature Oral (F) 97.4 F 04/05/2016 [facility] Heart Rate 54 04/05/2016 [facility] Respitory Rate 16 04/05/2016 [facility] Respitory Rate 16 04/05/2016 [facility] Heart Rate 60 04/05/2016 [facility] Respitory Rate 16 04/05/2016 [facility] Systolic (mm Hg) 174 04/05/2016 [facility] Diastolic (mm Hg) 91 04/05/2016 [facility] Temperature Oral (F) 97.8 F 04/05/2016 [facility] Temperature Oral (F) 97.4 F 04/05/2016 [facility] Heart Rate 57 04/05/2016 [facility] Weight 68.636 04/04/2016 [facility] Height 175.26 cm 04/04/2016 [facility] BMI Calculated 22.35 04/04/2016 [facility] Weight 69.545 04/04/2016 [facility] BMI Calculated 22.32 04/04/2016 [facility] Height 176.53 cm 04/04/2016 [facility] Encounters Location Location Details Encounter Type Encounter Number Reason For Visit Attending Provider ADM Date DC Date Status Source [facility] Inpatient [id number] Ирина Traoremakeda 04/04/2016 04/05/2016 [facility] [place] [facility] [id number] 01/26/2017 [facility] [place] Office Visit [id number] Inadequately controlled diabetes mellitus Retinopathy Essential hypertension CKD (chronic kidney disease) stage 3, GFR 30-59 ml/min Anemia, unspecified Screening for colorectal cancer Nausea and vomiting, intractability of vomiting not specified, unspecified vomiting type Gastroesophageal reflux disease, esophagitis presence not specified Actinic keratosis Mason Laws MD 01/26/2017 01/26/2017 [facility] [place] [facility] Visit [id number] 01/27/[address] [facility] [address] Scan [facility] Encounter [id number] Nausea and vomiting, intractability of vomiting not specified, unspecified vomiting type Mason Laws MD 01/27/2017 01/28/2017 [facility] Ophthalmology/Optometry [place] Office Visit [id number] Moderate nonproliferative diabetic retinopathy of both eyes associated with type 2 diabetes mellitus, macular edema presence unspecified Hypertensive retinopathy, bilateral Combined forms of age-related cataract of both eyes Refractive error Lien Simmons OD 01/30/2017 01/30/2017 [facility] Neurosurgery Clinic Office Visit [id number] S/P cervical spinal fusion Alberto Madrid MD 02/03/2017 02/03/2017 [facility] Diagnostic Radiology Hospital Encounter [id number] S/P cervical spinal fusion Mason Laws MD 02/03/2017 02/04/2017 [facility] [place] [facility] Visit [id number] 02/21/2017 [facility] [place] Office Visit [id number] Thalamic infarct, acute Essential hypertension CKD (chronic kidney disease) stage 3, GFR 30-59 ml/min Papillary adenocarcinoma of left kidney Encounter to discuss test results Type 2 diabetes mellitus with complication, with long-term current use of insulin Screening for colon cancer Immunization due Anemia of chronic disease PVD (peripheral vascular disease) Foot ulcer due to secondary DM Dupuytren's contracture of both hands Tessie Arias MD 02/21/2017 02/21/2017 [facility] Physical Medicine & Rehab ([id number]) Office Visit [id number] Risa Carter MD 03/03/2017 03/03/2017 [facility] Dental [place] Office Visit [id number] Visit for dental examination Radha Salas DDS 03/03/2017 03/03/2017 [facility] Same Day Same Day [id number] Cough Shortness of breath Acute pharyngitis, unspecified etiology Type 2 diabetes mellitus with complication, with long-term current use of insulin Nena Gongora NP 03/27/2017 03/27/2017 [facility] Emergency Center ([id number]) [facility] Emergency [id number] Cough Pleural effusion Prabhakar Diop MD 03/27/2017 03/27/2017 [facility] [place] [facility] Visit [id number] 04/18/2017 [facility] Podiatry [place] Office Visit [id number] Callus Onychomycosis Diabetes mellitus type 2 with neurological manifestations Mason Laws MD 04/18/2017 04/18/2017 [facility] GI LAB Service [facility] Telephone [id number] Callie Sheppard 05/09/2017 [facility] Ophthalmology Office Visit [id number] Moderate nonproliferative diabetic retinopathy of both eyes associated with type 2 diabetes mellitus, macular edema presence unspecified Combined forms of age-related cataract of both eyes Rita East Physician 05/10/2017 05/10/2017 [facility] Ophthalmology Nurse Only [id number] Haily Ahumada 05/10/2017 05/10/2017 [facility] [place] Clinical Case Mgt [id number] Ligia Parada RN 05/25/2017 [facility] Emergency Center ([id number]) [facility] Emergency [id number] SOB (shortness of breath) CKD (chronic kidney disease) stage 3, GFR 30-59 ml/min Elif Taylor MD 05/31/2017 05/31/2017 [facility] [place] [facility] Visit [id number] 06/01/2017 [facility] Neurosurgery Clinic Office Visit [id number] Alberto Madrid MD 06/02/2017 06/02/[address] Obs [facility] Hospital Encounter [id number] CKD (chronic kidney disease) stage 3, GFR 30-59 ml/min History of renal cell cancer Acute on chronic combined systolic and diastolic CHF, NYHA class 3 SOB (shortness of breath) Squamous cell carcinoma of skin of trunk Thalamic infarct, acute Type 2 diabetes, uncontrolled, with cellulitis of foot Essential hypertension H/O: urethral stricture 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 Tahmina Villeda Fellow() 07/04/2017 07/12/2017 [facility] [place] Telephone [id number] Domenica Ren 07/13/2017 [facility] [place] Telephone [id number] Madeline Talley 07/14/2017 [facility] [place] [facility] Visit [id number] 07/14/2017 [facility] [place] [facility] Visit [id number] 08/01/2017 [facility] [place] [facility] Visit [id number] 08/02/2017 [facility] [place] [facility] Visit [id number] 08/03/2017 [facility] [place] [facility] Visit [id number] 08/04/2017 [facility] Neurosurgery Clinic Office Visit [id number] Alberto Madrid MD 08/11/2017 08/11/2017 [facility]iology [facility] [place] Office Visit [id number] Mateo Deras MD 10/03/2017 10/03/2017 [facility] Inpatient [id number] Zachary Greenwood 12/12/2017 12/22/2017 [facility] Inpatient [id number] Alcira Nwoha 01/02/2018 01/30/2018 [facility] Inpatient [id number] Nikky Fernandez 02/02/2018 02/10/2018 [facility] Observation [id number] Thomas Krunal 02/15/2018 02/17/2018 [facility] [place] [facility] [id number] Ayush Park 06/08/2018 06/09/2018 [facility] [place] Procedures Procedure Code Date Perfomer Comments Source Insertion of renal artery stent<sup>1</sup> [id number] left neck [place] Partial excision of kidney [id number] [facility] Insertion of renal artery stent<sup>1</sup> [id number] left neck [facility] Partial excision of kidney [id number] [facility] Assessment and Plan Assessment and Plan Date Source Extracted from:Title: [facility] Hospitalist Service Discharge Summary Author: Gorge Goetz MD Date: 02/16/18 [facility] Hospitalist Service Discharge Summary PATIENT NAME:DINESH DIAZ ATTENDING: GORGE DURBIN JR, MD ADMISSION DATE: 02/15/2018 15:57 DISCHARGE DATE:02/16/2018 17:05 DISCHARGE DIAGNOSIS: Fluid overload, unspecified (E87.70) CONSULTING PHYSICIANS/SERVICES: Mk Walters MD Office: Service: Nephrology DISCHARGE CONDITION: Fair HISTORY OF PRESENT ILLNESS: Please see admission history and physical for presenting details HOSPITAL COURSE: The patient was admitted to the hospital from fdc facility as following his last discharge from the hospitalhe was supposed to receive hemodialysis [facility] however he was discharged from that facility. The nursing facility made attempts to secure hemodialysis at other facilities however this was not possible therefore he was admitted for hemodialysis. He underwent hemodialysis while in the hospital and was doing well thereafter. Social work was able to secure a chair time for dialysis, however this would not be until 02/21/18 in [place]. The patient was specifically instructed to avoid foods rich in potassium and not intake excessive hydration. He was eager to be discharged and in agreement with the plan. He was specifically instructed that in the event he felt unwell, short of breath, developed palpitations or chest pain, that he should seek immediate medical attention. I saw and examined the patient on day of discharge. The patient was discharged in fair condition, with appropriate followup and appropriate medications. DISCHARGE INSTRUCTIONS: Please notify your physician if any of the following occur: Bleeding, Fever, Nausea, Pain, Shortness of breath, Signs of infection, Swelling Activity: Activity as tolerated, No strenuous activity DISCHARGE DIET: Home Diet: Diet Renal 80,2,2,1 (pro, sod, pot, phos) DISCHARGE MEDICATIONS: PLEASE SEE R FOR DETAILS PERTAINING TO DISCHARGE MEDICATIONS DISCHARGE FOLLOWUP: Outpatient [facility], Appointment is scheduled, within: Monday02/21/18, reason: Continued hemodialysis A total of 34 minutes was spent planning discharge which included bedside counseling. Extracted from:Title: Clinical Document Author: Mk Walters MD Date: 02/16/18 Nephrology Note Mk Walters MD [facility] Subjective: Patient seen and examine don HD. Doing well. No new complains. Vitals Tmp(F) Pulse BP RR SpO2 FIO2 02/16 11:50 97.5 73 169/68 18 96 --- 02/16 11:09 98.5 75 110/94 17 97 --- 02/16 10:59 97.6 --- ----- -- --- --- 02/16 06:40 98.7 62 145/82 16 --- --- 02/16 03:25 97.8 64 157/76 18 97 --- 24 Hr Tmax: 98.7F (37.06c) at 02/16 06:40 Vital Signs are the last 5 in the past 48 hours. I&O Record In Out Bal 02/16 24hr Tot 0 1300 -1300 07/12 24hr Tot 120 0 120 Labs (Last four charted values) WBC H 11.0 (FEB 16) H 13.2 (FEB 15) Hgb L 8.6 (FEB 16) L 9.3 (FEB 15) Hct L 26.7 (FEB 16) L 28.8 (FEB 15) Plt 210 (FEB 16) 231 (FEB 15) Na H 146 (FEB 16) 142 (FEB 15) K H 5.6 (FEB 16) H 5.5 (FEB 15) CO2 27 (FEB 16) 26 (FEB 15) Cl H 110 (FEB 16) 107 (FEB 15) Cr H 6.32 (FEB 16) H 6.36 (FEB 15) BUN H 40 (FEB 16) H 39 (FEB 15) Glucose Random H 183 (FEB 16) H 157 (FEB 15) Mg 2.3 (FEB 15) Phos H 5.6 (FEB 15) Ca 8.6 (FEB 16) 8.7 (FEB 15) Scheduled Meds (1): 02/16/18 docusate 100 mg PO BID Unscheduled Meds: None Examination: HEENT; Unremarkable Neck: No Jugular Distension. Chest: CTA Cardiovascular: Regular rate and rhythem, Normal heart sounds and no murmurs. Abdomen: Soft, Non tender non distended. BS Normoactive. Extremeties: No edema. Leg ulcers are healing well. WHITE SPOOLER: Non focal. Assessment: Anemia ESRD DM2 PAD Infected foot ulcers Metabolic bone disease Hyperkalemia. Encephalopathy. Now resolved. Plan: - HD on MWF schedule but missed the dialysis. - Seen on HD. Tolerating well. Extracted from:Title: General Admission H&P * Author: Thomas Hector MD Date: 02/15/18 Impression and Plan Patient is 62-year-old male history of diabetes previous CVA and end-stage renal disease who presents after missing 2 dialysis sessions. 1. End-stage renal disease patient is in need of hemodialysis will consult nephrology to evaluate patient We will consult case management to arrange for outpatient hemodialysis as he lost his previous chair time 2. Hypertension we will resume his previous home therapy 3. Hyperlipidemia we will resume his Lipitor 4. Moderate protein calorie malnutrition albumin level is 2.6 will have dietary evaluate patient 5. Hyperkalemia potassium is 5.5 will give patient 1 dose of Kayexalate he will also receive hemodialysis on tomorrow 6. Diabetes mellitus we will resume his previous home therapy will place him on insulin MPP 7. Will place in observation status 02/17/2018 [place] Extracted from:Title: Clinical Document Author: Nikky Fernandez MD Date: 02/09/18 Discharge Summary Name: Dinesh Diaz Admission Date: 02/02/18 Discharge Date: 02/09/18 Diagnoses: Left foot gangrene, cellulitis, OM Bilateral necrotic foot ulcerations peripheral arterial disease ESRD DM 2 acute encephalopathy Procedures: Hemodialysis HPI: 62-year-old male patient who has multiple medical issues. He has been admitted on many occasions on account of left lower extremity osteomyelitis, status post amputation of a couple of toes. He has a history of a chronic left lower extremity nonhealing wound, end-stage renal disease on dialysis, is diabetic, hypertensive and also malnourished. He came into the emergency room and he was admitted for continuity of care. He was recently admitted and discharged on 01/30/2018. At that time, he was evaluated for an episode of near syncope and he was found to have osteomyelitis with gangrene of the toe on the left foot. ID was consulted. The patient was put on antibiotics; however, he was discharged back to the fdc facility and this patient has been readmitted because of issues with care. -- per Dr. Duenas [facility] course: # Bilateral foot necrotic ulcers and cellulitis vs OM - hx of cultures with enterobacter, acinetobacter, VRE - ID Dr. Stevenson - podiatry Dr. Alvarez - blood and wound cx - negative Patient received 5 days of amikacin, unasyn, and zyvox while inhouse. After repeat review on patient's antibiotics during previous admission, patient completed a full 21 course of antibiotics and did not require antibiotics on discharge. PT/OT recommended SNF and he was discharged to [facility]. # ESRD, anemia of chronic disease - Dr. Walters - HD MWF - continued epo with HD # HTN - increased hydralazine to 75 mg TID and lisinopril to 30 mg Qd - continued lopressor and nifedipine # PVD s/p angiogram and left toe amputations in 12/2017 - continued asa/statin Discharge condition: stable Physical Exam Gen: awake,NAD HEENT: NC/AT, EOMI, oropharynx clear Pulm: CTAB, no wheezing or crackles Cardiac: RRR, no m/r/g Abd: +BS, soft, NT, ND Ext: wound dressings c/d/i bilaterally, 3 toe amputations left foot, no edema of legs Neuro: no focal deficits Skin: No rashes or lesions Discharge therapy: Medications: see med rec Diet: renal Activity: as tolerates Follow up: Dr. Stevenson (ID), Dr. Alvarez (podiatry), PCP within 1-2 weeks Nikky Fernandez MD [facility] Hospitalist Extracted from:Title: Progress Note * Author: Nikky Fernandez MD Date: 02/08/18 Impression and Plan # Bilateral foot necrotic ulcers and cellulitis vs OM - hx of cultures with enterobacter, acinetobacter, VRE - ID Dr. Stevenson - podiatry Dr. Alvarez - wound care following - blood and wound cx - ngtd - PT/OT - pending SNF placement - per SW, SNF will accept with IV zyvox - per ID, now will only need 2 more days of IV abx after review of prior admission abx. Will f/u with SW # ESRD, anemia of chronic disease - Dr. Walters - HD MWF - continue epo # HTN - increased hydralazine to 75 mg TID - continue lopressor, and nifedipine - will increase lisinopril as BP still uncontrolled # PVD s/p angiogram and left toe amputations in 12/2017 - continue asa/statin DVT ppx: heparin Code: full Nikky Fernandez MD [facility] Hospitalist Extracted from:Title: Podiatry Consult Author: Reyna Palomo DPM Date: 02/03/18 Impression and Plan pressure ulcer right heel chronic foot ulcer right great toe PVD will order 3 views xrays b/l foot will also order wound cultures right foot start application of iodosorb gel and protective dressing to b/l foot wound offload heel with protective boots IV abx per ID pain control we will continue to follow Thank you for Consult Dr. Alvarez will resume care on Monday02/10/2018 [facility] Extracted from:Title: Clinical Document Author: Ludwig Jefferson MD Date: 01/29/18 Psychiatry Progress Note. LDUWIG JEFFERSON M.D. Board Certified in Adult and Geriatric Psychiatry. Patient seen, Events noted. SUBJECTIVE : Feels better OBJECTIVE : He is alert,awake, calm and cooperative, he denies s.e of meds. He is not agitated or combative. Allergies: NKDA Labs (Last four charted values) WBC H 14.7 (RAYMUNDO 25) H 11.0 (RAYMUNDO 23) H 11.2 (RAYMUNDO 21) H 13.7 (RAYMUNDO 20) Hgb L 9.3 (RAYMUNDO 25) L 9.2 (RAYMUNDO 23) L 9.1 (RAYMUNDO 21) L 9.4 (RAYMUNDO 20) Hct L 28.7 (RAYMUNDO 25) L 27.5 (RAYMUNDO 23) L 27.7 (RAYMUNDO 21) L 28.5 (RAYMUNDO 20) Plt L 129 (RAYMUNDO 25) L 92 (RAYMUNDO 23) L 89 (RAYMUNDO 21) L 82 (RAYMUNDO 20) Na L 132 (RAYMUNDO 25) 135 (RAYMUNDO 21) 142 (RAYMUNDO 20) 140 (RAYMUNDO 19) K 3.7 (RAYMUNDO 25) L 3.3 (RAYMUNDO 21) C 3.0 (RAYMUNDO 20) 3.6 (RAYMUNDO 19) CO2 28 (RAYMUNDO 25) 30 (RAYMUNDO 21) 30 (RAYMUNDO 20) 27 (RAYMUNDO 19) Cl 97 (RAYMUNDO 25) 100 (RAYMUNDO 21) 104 (RAYMUNDO 20) 105 (RAYMUNDO 19) Cr H 3.88 (RAYMUNDO 25) H 2.44 (RAYMUNDO 21) 1.35 (RAYMUNDO 20) H 2.15 (RAYMUNDO 19) BUN 19 (RAYMUNDO 25) L 5 (RAYMUNDO 21) L 2 (RAYMUNDO 20) L 5 (RAYMUNDO 19) Glucose Random H 101 (RAYMUNDO 25) 87 (RAYMUNDO 21) 87 (RAYMUNDO 20) 98 (RAYMUNDO 19) Mg 1.9 (RAYMUNDO 25) 1.9 (RAYMUNDO 20) L 1.7 (RAYMUNDO 18) 1.9 (RAYMUNDO 15) Phos 3.8 (RAYMUNDO 25) C 1.3 (RAYMUNDO 20) L 1.6 (RAYMUNDO 19) 4.3 (RAYMUNDO 15) Ca H 11.5 (JAN 25) 10.4 (RAYMUNDO 21) 9.4 (RAYMUNDO 20) 9.5 (RAYMUNDO 19) PT 13.9 (JAN 08) 14.3 (JANUARY 02) INR 1.07 (JAN 08) 1.11 (JANUARY 02) PTT 33.7 (JANUARY 02) Troponin <0.02 (JAN 11) 0.02 (JAN 14) <0.02 (JANUARY 02) <0.02 (JANUARY 02) CK MB 1.9 (JAN 14) H 5.0 (JANUARY 02) H 4.9 (JANUARY 02) Total CK 57 (JAN 15) 77 (JAN 14) 58 (JANUARY 02) 54 (JANUARY 02) MENTAL STATUS EXAM: He is alert, awake, cooperative, mood better, 0 x 3. ASSESSMENT: Delirium due to multiple etiologies, likely causes infectious/metabolic. IMPROVING. PLAN: He is doing better, making progress. OK to d/c from psychiatric stand point N 01/30/2018 Gregorio Extracted from:Title: Clinical Document Author: Mk Walters MD Date: 12/21/17 Nephrology Note Mk Walters MD FACP FASN Subjective: Patient seen and examined. Doing well. On HD. Vitals Tmp(F) Pulse BP RR SpO2 FIO2 12/21 08:29 98.1 67 181/80 18 96 --- 12/21 02:49 98.5 65 197/86 -- 97 --- 12/20 23:16 98.9 66 186/79 -- 96 --- 12/20 20:33 98.9 69 193/85 -- 95 --- 12/20 15:51 98.8 67 196/89 18 --- --- 24 Hr Tmax: 98.9F (37.17c) at 12/20 23:16 Vital Signs are the last 5 in the past 48 hours. I&O Record In Out Bal 12/20 24hr Tot 1302 [id number] 12/19 24hr Tot 611 [id number] Labs (Last four charted values) WBC H 13.9 (DECEMBER 21) H 17.7 (DECEMBER 20) H 15.5 (DECEMBER 19) H 15.6 (DECEMBER 17) Hgb L 10.1 (DECEMBER 21) L 10.2 (DECEMBER 20) L 9.2 (DECEMBER 19) L 9.9 (DECEMBER 17) Hct L 31.0 (DECEMBER 21) L 30.9 (DECEMBER 20) L 27.5 (DECEMBER 19) L 29.6 (DECEMBER 17) Plt 215 (DECEMBER 21) 218 (DECEMBER 20) 215 (DECEMBER 19) 277 (DECEMBER 17) Na L 133 (DECEMBER 21) 137 (DECEMBER 19) L 134 (DECEMBER 17) L 132 (DECEMBER 16) K 4.1 (DECEMBER 21) L 3.2 (DECEMBER 19) 3.7 (DECEMBER 18) 4.1 (DECEMBER 17) CO2 27 (DECEMBER 21) 29 (DECEMBER 19) 28 (DECEMBER 17) 29 (DECEMBER 16) Cl 97 (DECEMBER 21) 98 (DECEMBER 19) 98 (DECEMBER 17) 97 (DECEMBER 16) Cr H 4.75 (DECEMBER 21) H 3.69 (DECEMBER 19) H 3.53 (DECEMBER 17) H 4.49 (DECEMBER 16) BUN H 53 (DECEMBER 21) H 23 (DECEMBER 19) 19 (DECEMBER 17) H 31 (DECEMBER 16) Glucose Random H 156 (DECEMBER 21) H 117 (DECEMBER 19) H 189 (DECEMBER 17) H 182 (DECEMBER 16) Mg 2.1 (DECEMBER 17) 2.0 (DECEMBER 15) L 1.6 (DECEMBER 13) 2.0 (DECEMBER 12) Phos 3.8 (DECEMBER 13) H 6.6 (DECEMBER 12) Ca L 8.1 (DECEMBER 21) L 7.7 (DECEMBER 19) L 7.5 (DECEMBER 17) L 7.5 (DECEMBER 16) PT 14.7 (DECEMBER 14) H 15.0 (DECEMBER 12) INR 1.15 (DECEMBER 14) 1.17 (DECEMBER 12) PTT 32.9 (DECEMBER 14) 33.7 (DECEMBER 12) Troponin <0.02 (DECEMBER 12) Total CK 81 (DECEMBER 12) Scheduled Meds (8): 12/14/17 cadexomer-iodine topical (Iodosorb 0.9% topical gel) 1 appl TOP Daily 12/13/17 cefepime + Sodium Chloride 0.9% IV 100 mL 1 gm IVPB [id number] 25 ml/hr 12/13/17 epoetin ruddy (Epogen (ESRD)) 10,000 unit IV Q---Sa 12/13/17 heparin 5,000 unit SUB-Q Q8H 12/13/17 lisinopril 20 mg PO Daily 12/12/17 metoprolol (metoprolol tartrate) 25 mg PO Q12H 12/19/17 metroNIDAZOLE (Flagyl) 500 mg PO ABXQ8H 12/19/17 nutritional supplement (Gibson packet) 1 pkt PO BID-Before Meals Unscheduled Meds: None Examination: HEENT; Unremarkable Neck: No Jugular Distension. Chest: CTA Cardiovascular: Regular rate and rhythem, Normal heart sounds and no murmurs. Abdomen: Soft, Non tender non distended. BS Normoactive. Extremeties: No edema. Has left 2nd toe removed. WHITE SPOOLER: Non focal. Assessment: 1. ESRD On HD on TTS schedule. 2. Hyperkalemia: Resolved. 3. Non compliance to dialysis treatment and medication. 4. PAD 5. Gangrene of the toes. Second big toe removed. 6. Cellulitis. Now the sepsis is improving and the white coumt is improving. Plan: Continue IV antibiotics and placement to a dialysis unit and a fdc. Will follow. Patient seen in the dialysis unit. Addendum by Mk Walters MD on 12/21/2017 09:29 Patient has poor flow in the catheter. Will instill CathFlow and try to dialyze him. Will also get Dr. Cheatham to get a tunnelled catheter. Extracted from:Title: Clinical Document Author: Jay Cheatham MD Date: 12/15/17 PATIENT ENCOUNTER: [id number] DATE OF : 1955 DATE OF SURGERY: 12/15/2017 PREOPERATIVE DIAGNOSIS: Peripheral arterial disease with bilateral forefoot gangrene POSTOPERATIVE DIAGNOSIS: Peripheral arterial disease with bilateral forefoot gangrene PROCEDURES: 1. Ultrasound guided right common femoral artery access 2. Abdominal aortic angiogram 3. Selective left lower extremity angiogram with catheter placed in left external iliac artery 4. Drug-coated balloon angioplasty of left popliteal artery 5. Right lower extremity angiogram 6. Closure of femoral access site using Angio-Seal SURGEON: Dr. Jay Cheatham. ASSISTING SURGEON: Dr. Xavier Tompkins ANESTHESIA: Local with monitored anesthesia care ESTIMATED BLOOD LOSS: 100 ML. INDICATIONS FOR PROCEDURE: This is a 62 years old male who has end-stage renal disease and advanced gangrene bilateral forefeet. Angiogram and revascularization is indicated. The risks benefits and options were discussed with patient in detail who appropriately consented to proceed with angiogram and revascularization if possible. PROCEDURE IN DETAIL: Informed consent was obtained. Patient was transferred to the operating room. Patient was was made comfortable in a supine position Monitored anesthesia care was provided. Following the routine sterile preparation of both groins, the right groin was anesthetized by using 2% lidocaine. The femoral artery was then accessed under ultrasound guidance and a 5 Welsh arterial sheath was placed. Omni Flush catheter was then placed in the abdominal aorta and abdominal aortic angiogram was obtained. Subsequently Omni Flush catheter was placed in the left common iliac artery and then left external iliac artery, left iliac artery angiogram was obtained. Left lower extremity selective runoff was then obtained by obtaining femoral artery angiogram popliteal artery angiogram and tibial artery angiogram and pedal angiogram via the catheter placed in the left external iliac artery. The right lower extremity angiogram runoff was obtained through the sheath in a retrograde fashion. Diagnostic abdominal aortic angiogram findings: 1. The infrarenal abdominal aorta is patent 2. Right renal artery is patent 3. Left renal artery is patent 4. Right Common iliac artery is patent 5. Right External iliac artery is patent 6. Right Internal iliac artery is patent 7. Left Common iliac artery is patent 8. Left External iliac artery is patent 9. Left Internal iliac is patent Right lower extremity angiogram: 1. The right common femoral artery is patent 2. The right profunda femoris artery is patent 3. The right superficial femoral artery has calcification but is patent. 4. The right popliteal artery is patent 5. The right anterior tibial artery is occluded 6. The right posterior tibial artery is patent and the dominant runoff. There is mild stenosis in the proximal posterior tibial artery 7. The right peroneal artery is patent 8. The right dorsalis pedis artery is occluded 9. The right plantar artery is patent Left lower extremity angiogram: 1. The left common femoral artery is patent 2. The left profunda femoris arteries patent 3. The left superficial femoral artery is patent 4. The left popliteal artery is patent in P1 P2 and P3. Above the knee popliteal artery has 70% stenosis 5. The left anterior tibial artery is patent, there is a previously placed left anterior tibial artery stent which is patent 6. The left posterior tibial artery occludes in the mid calf 7. The left peroneal artery is patent 8. The left dorsalis pedis is patent but has multifocal stenoses 9. The left plantar artery is occluded Intervention: Based on the angiogram revascularization of left lower extremity by balloon angioplasty of the left popliteal artery is indicated. Therefore, systemic heparin was administered. A 6 Welsh arterial sheath was placed in the right femoral artery (destination sheath). Predilation left using a 5 x 60 balloon was performed in the [id number] popliteal artery. The balloon angioplasty resulted in resolution of 70% stenosis to residual 30% stenosis. Post angioplasty popliteal artery was treated with 5x120 mm DCB for 3 mins. Extracted from:Title: Clinical Document Author: Jay Cheatham MD Date: 12/14/17 VASCULAR SURGERY CONSULT NOTE Jay Cheatham MD FACS DATE OF CONSULT: 12/14/2017 DATE OF : 1955 REFERRING PHYSICIAN:Dr Julien REASON FOR THE CONSULT: Bilateral lower extremity gangrene and peripheral arterial disease HISTORY OF PRESENT ILLNES This is a 62 years old patient was noncompliant and has end-stage renal disease. He has missed his hemodialysis also. Patient developed gangrene in both of his lower extremities and his been treated at [facility]. He reports that his last angiogram was in September and does not remember the findings are intervention of this procedure. He reports that his gangrene has worsened since that time. He denies fever chills nausea vomiting. REVIEW OF SYSTEM: RESPIRATORY: No cough, no dyspnea CARDIOVASCULAR: No chest pain or pressure. No palpitations GASTROINTESTINAL: No dysphagia, odynophagia, bright blood per rectum, heartburn, diarrhea or constipation. No nausea, vomiting, or hemetemesis MUSCULOSKELETAL: No myalgias, arthralgias, joint swelling. NEUROLOGICAL: No vertigo or disturbance of balance or coordination.No motor or sensory complaints. No headache.No amaurosis fugax, no TIAs GENITOURINARY: No dysuria, urgency or urinary frequency. No incontinence. ALLERGIES: Allergies (1) Active Reaction NKDA None documented MEDICATION LIST: Scheduled Meds (8): 12/14/17 cadexomer-iodine topical (Iodosorb 0.9% topical gel) 1 appl TOP Daily 12/13/17 cefepime + Sodium Chloride 0.9% IV 100 mL 1 gm IVPB [id number] 25 ml/hr 12/13/17 clindamycin 900 mg IVPB ABXQ8H 100 ml/hr 12/13/17 epoetin ruddy (Epogen (ESRD)) 10,000 unit IV Q---12/13/17 heparin 5,000 unit SUB-Q Q8H 12/13/17 lisinopril 20 mg PO Daily 12/12/17 metoprolol (metoprolol tartrate) 25 mg PO Q12H 05/09/18 vancomycin + Sodium Chloride 0.9% IV 100 mL 500 mg IVPB Q-- 100 ml/hr PAST MEDICAL HISTORY H/O: stroke PAST SURGICAL HISTORY: Insertion of renal artery stent Partial excision of kidney SOCIAL HISTORY: Alcohol Details: Current, Type Beer. Last use: yesterday.; Comment(s): 4 beers a week Tobacco Details: Use: Never smoker. Tobacco smoke exposure: None. Did the Patient Smoke Cigarettes Anytime During the Last 365 Days? No. Cessation Counseling Provided? No. Substance Abuse Details: Use: None. PHYSICAL EXAM: Vitals Tmp(F) Pulse BP RR SpO2 FIO2 12/14 15:57 98.3 --- 176/73 18 96 --- 12/14 13:28 98.3 --- 171/73 20 98 --- 12/14 13:05 97.5 70 165/79 18 --- --- 12/14 08:45 97.3 73 163/86 19 --- --- 12/14 08:15 98.7 76 147/76 20 98 --- 24 Hr Tmax: 98.8F (37.11c) at 12/13 20:26 Vital Signs are the last 5 in the past 48 hours. HEAD AND NECK: Normocephalic atraumatic EYES: Extraocular muscles intact CHEST: Clear to auscultation CARDIAC: Regular rate rhythm ABDOMEN: Soft nontender VASCULAR EXAM: Palpable femoral pulses FOOT: Gangrene of right great toe and medial lateral aspect of the foot and also the calcaneum, gangrene of left first and second toe and lateral foot LABORATORY DATA: Labs (Last four charted values) WBC H 14.1 (DECEMBER 14) H 18.3 (DECEMBER 13) H 18.2 (DECEMBER 12) Hgb L 7.2 (DECEMBER 14) L 7.6 (DECEMBER 13) L 8.4 (DECEMBER 12) Hct L 21.7 (DECEMBER 14) L 23.5 (DECEMBER 13) L 25.9 (DECEMBER 12) Plt 323 (DECEMBER 14) 332 (DECEMBER 13) 408 (DECEMBER 12) Na 135 (DECEMBER 14) 139 (DECEMBER 13) L 134 (DECEMBER 13) L 131 (DECEMBER 12) K 3.8 (DECEMBER 14) 3.8 (DECEMBER 13) C 3.0 (DECEMBER 13) C >10.0 (DECEMBER 12) CO2 31 (DECEMBER 14) 31 (DECEMBER 13) 29 (DECEMBER 13) L 16 (DECEMBER 12) Cl 96 (DECEMBER 14) 98 (DECEMBER 13) 98 (DECEMBER 13) 102 (DECEMBER 12) Cr H 5.09 (DECEMBER 14) H 4.03 (DECEMBER 13) H 3.50 (DECEMBER 13) H 8.02 (DECEMBER 12) BUN H 46 (DECEMBER 14) H 38 (DECEMBER 13) H 34 (DECEMBER 13) H 103 (DECEMBER 12) Glucose Random H 121 (DECEMBER 14) H 132 (DECEMBER 13) H 192 (DECEMBER 13) 97 (DECEMBER 12) Mg L 1.6 (DECEMBER 13) 2.0 (DECEMBER 12) Phos 3.8 (DECEMBER 13) H 6.6 (DECEMBER 12) Ca L 7.4 (DECEMBER 14) L 8.0 (DECEMBER 13) L 7.6 (DECEMBER 13) C <5.0 (DECEMBER 12) PT H 15.0 (DECEMBER 12) INR 1.17 (DECEMBER 12) PTT 33.7 (DECEMBER 12) Troponin <0.02 (DECEMBER 12) Total CK 81 (DECEMBER 12) RADIOLOGIC AND VASCULAR IMAGING: Arterial Doppler study revealed noncompressible vessels at the ankle and waveforms suggestive of moderate arterial insufficiency. Right toe pressure is adequate at 150 to left toe pressure could not be obtained. ASSESSMENT AND PLAN: 62 years old noncompliant patient who has end-stage renal disease and hyperkalemia he also presents with extensive gangrene. The arterial Doppler study do not suggest severe or critical limb ischemia however presence of this extensive gangrene and presence of calcified vessels may lead to falsely negative arterial Doppler study. I discussed with him and we will proceed with angiogram to evaluate the perfusion prior to proceeding with proximal foot amputations. Extracted from:Title: Hyperkalemia Author: Alfreda Meier DO Date: 12/12/17 Critical Care Medicine Chief complaint: Hyperkalemia History of present illness: 62 y.o male with a h/o ESRd on HD, HTN, and DM presnted to the ER for a wound check. He recently had an amputation of his left large toe at [place]. He states that he has not been on antibiotics or wound care recently. He felt too sick to drive to dialysis in the last week and a half. His schedule is usually M/W/F. Found to be hypertensive with a potassium of 10 in the ER. Medical managament of hyperkalemia has been initiated. Nephro plans for stat HD. IV abx have been started. Past medical history: ESRD, HTN, DM Past family history: Father: Stroke; Type 1 diabetes mellitus Mother: Fainting Surgical history: Insertion of renal artery stent Partial excision of kidney Social history: Alcohol Details: Current, Type Beer. Last use: yesterday.; Comment(s): 4 beers a week Tobacco Details: Use: Never smoker. Tobacco smoke exposure: None. Did the Patient Smoke Cigarettes Anytime During the Last 365 Days? No. Cessation Counseling Provided? No. Substance Abuse Details: Use: None. Medications: Medication List Active Medications Ordered mannitol: 12.5 gm, 50 mL, 50 ml/hr, IV, ONCALL. mannitol: 12.5 gm, 50 mL, 50 ml/hr, IV, ONCALL. sodium chloride: 10 mL, IVP, PRN, PRN: Line Flush. vancomycin + Dextrose 5% in Water IV 250 mL: 1,000 mg, 250 ml/hr, IVPB, ONCE. Prescribed aspirin: 81 mg, 1 tab, PO, Daily, 30 tab, 0 Refill(s). atorvastatin: 40 mg, 1 tab, PO, Bedtime, 30 tab, 0 Refill(s). lisinopril: 20 mg, 1 tab, PO, Daily, 30 tab, 0 Refill(s). metoprolol: 25 mg, 1 tab, PO, BID, 60 tab, 0 Refill(s). Medications Inactivated in the Last 72 Hours albuterol: 20 mg, NEB, ONCE. albuterol: 19.92 mg, 24 mL, PYXIS, ONCE. calcium gluconate: 1 gm, 50 mL, PYXIS, ONCE. calcium gluconate + Sodium Chloride 0.9% IV 50 mL: 1 gm, 10 mL, 120 ml/hr, IVPB, ONCE. Dextrose 50% in Water IV: 25 gm, 50 mL, IVP, ONCE. Dextrose 50% in Water IV: 50 gm, 100 mL, PYXIS, ONCE. furosemide: 40 mg, 4 mL, IVP, ONCE. furosemide: 40 mg, 4 mL, PYXIS, ONCE. heparin: 10,000 unit, 10 mL, PYXIS, ONCE. hydrALAZINE: 20 mg, 1 mL, IVP, ONCE. hydrALAZINE: 20 mg, 1 mL, PYXIS, ONCE. Insulin regular: 5 unit, 0.05 mL, IVP, ONCE. Insulin regular: 100 unit, 1 mL, PYXIS, ONCE. mannitol: 25 gm, 100 mL, PYXIS, ONCE. mannitol: 25 gm, IVPB, ONCE. piperacillin-tazobactam: 3.375 gm, PYXIS, ONCE. piperacillin-tazobactam + Sodium Chloride 0.9% IV 100 mL: 3.375 gm, 200 ml/hr, IVPB, ONCE. sodium bicarbonate: 50 mEq, 50 mL, IVP, ONCE. sodium bicarbonate: 50 mEq, 50 mL, PYXIS, ONCE. Sodium Chloride 0.9% IV: 100 mL, PYXIS, ONCE. sodium polystyrene sulfonate: 15 gm, 60 mL, PO, ONCE. sodium polystyrene sulfonate: 15 gm, 60 mL, PYXIS, ONCE. Review of systems: General: No fevers chills, weight loss, weakness. HEENT: No blurring of vision, sore throat, nasal congestion, epistaxis, tinnitus. Cardiovascular: No palpitations, chest pain, syncope/near syncope, dyspnea on exertion, paroxysmal nocturnal dyspnea Respiratory: No shortness of breath, cough, pain with respiration, hemoptysis Gastrointestinal: Normal appetite, no hematemesis, vomiting, bloody stool, abdominal pain, diarrhea Genitourinary: No frequency, urgency, nocturia, hematuria or dysuria. Musculoskeletal: No arthralgias or myalgias. Dermatology: No swelling, bruising, contusions,abrasions, lymphangitis. Infected surgical wound left foot Neurology: Dizzy No headache, neck pain, numbness or tingling of the extremities. or weakness. Endocrine: No history of thyroid, diabetes or adrenal problems. Hematologic: No bleeding, petechiae,bruising. Allergy: No asthma, urticaria. Psychiatric: No confusion or depression Physical Exam Vitals Tmp(F) Pulse BP RR SpO2 FIO2 12/12 21:22 ---- 106 130/94 17 98 --- 12/12 20:30 ---- 105 136/66 12 97 --- 12/12 19:37 98.2 82 204/96 18 98 --- 12/12 19:28 ---- --- ----- 16 98 21% 12/12 18:40 ---- 87 201/99 15 100 --- 24 Hr Tmax: 98.2F (36.78c) at 12/12 19:37 Vital Signs are the last 5 in the past 48 hours. Gen: mild distress HEENT: protecting airway Neuro: alert and oriented, nonlateralizing, no motor or sensory deficits Cardio: S1S2 reg, no murmurs Pulm: CTAB Abd: soft, normal bowel sounds Derm: purulent drainage L foot Ext: no edema, no cyanosis, no limb ischemia Labs (Last four charted values) WBC H 18.2 (DECEMBER 12) Hgb L 8.4 (DECEMBER 12) Hct L 25.9 (DECEMBER 12) Plt 408 (DECEMBER 12) Na L 131 (DECEMBER 12) K C >10.0 (DECEMBER 12) CO2 L 16 (DECEMBER 12) Cl 102 (DECEMBER 12) Cr H 8.02 (DECEMBER 12) BUN H 103 (DECEMBER 12) Glucose Random 97 (DECEMBER 12) Mg 2.0 (DECEMBER 12) Phos H 6.6 (DECEMBER 12) Ca C <5.0 (DECEMBER 12) PT H 15.0 (DECEMBER 12) INR 1.17 (DECEMBER 12) PTT 33.7 (DECEMBER 12) Troponin <0.02 (DECEMBER 12) Total CK 81 (DECEMBER 12) Impression: 1. Hyperkalemia 2. Metabolic acidosis 3. Infected stump L foot 4. ESRD on HD 5. Accelerated HTN 6. DM Plan: - ICU care - stat HD - prn IV push antihypertensives - cont abx - podiatry consultation - xray foot to r/u osteomyelitis - BS goal < 200 - prophylactic measures CCM time exclusive of procedures is: 34 min Time was spent in reviewing, laboratory and radiographic data, in direct management of patient at bedside as well as coordination. Requires critical care due to the acute impairment of vital organ systems and a high probability of imminent and life threatening deterioration. 12/22/2017 [facility] Extracted from:Title: Clinical Document Author: Lynda Espinosa MD Date: 04/05/16 Progress Note - Daily [facility] Completed: Mar, 12:13 by Lynda Espinosa MD RM: 228 - 1P, SE C2C DINESH DIAZ 60y (: 1955) M Attending: Ирина Lo MD Service: Internal Medicine Reason for Admission: TIA, HYPERTENSION Working DRG: None Documented Code status: None Specified=FULL CODE Current diet: Isolation: None Documented Allergies: NKDA SUBJECTIVE He feels well. No weakness, numbness, slurred speech, vision change, headache, chest pain, dizziness, shortness of breath, nausea, or chest pain. OBJECTIVE 24hr Labs 04/05 0818 Glucose POC 228 H 04/05 0423 Glucose Lvl 270 H BUN 33 H Creatinine Lvl 1.61 H Sodium Lvl 138 Potassium Lvl 4.3 Chloride Lvl 104 CO2 27 AGAP 11.3 Calcium Lvl 8.3 L eGFR 46 WBC 7.0 RBC 4.22 L Hgb 12.0 L Hct 36.2 L MCV 85.7 MCH 28.4 MCHC 33.2 RDW 13.8 Platelet 187 MPV 7.8 Segs 60.6 Monocytes 10.0 Lymphocytes 25.1 Eosinophils 3.6 Basophils 0.7 Segs-Bands # 4.2 Lymphocytes # 1.7 Monocytes # 0.7 Eosinophils # 0.2 Basophils # 0.1 04/04 2118 Glucose POC 219 H 04/04 1738 Glucose POC 191 H 04/04 1257 Glucose POC 174 H Brizuela still necessary (Yes/No): Line still necessary (Yes/No): Vitals Tmp(F) Pulse BP RR SpO2 FIO2 04/05 09:40 ---- --- ----- 16 100 21% 04/05 08:14 97.8 60 174/91 16 99 --- 04/05 03:34 97.4 57 161/75 18 97 --- 04/05 00:34 ---- 62 164/96 18 --- --- 08/29 23:16 98.2 65 189/89 18 97 --- 24 Hr Tmax: 98.2F (36.78c) at 04/04 23:16 Vital Signs are the last 5 in the past 48 hours. Date Wt(kg) Wt(lb) Ht(cm) Ht(in) Method 04/04 68.64 151.00 175.26 69.00 Measured 04/03 (initial) 69.55 153.00 Estimated 04/03 176.53 69.50 Stated I&O Record In Out Bal 04/05 24hr Tot 10 0 10 04/04 24hr Tot 20 0 20 Medications (17) Active Scheduled Meds (5): 04/04/16 aspirin (aspirin 81 mg tablet, enteric coated) 81 mg PO Daily 04/04/16 atorvastatin 40 mg PO Bedtime 04/04/16 famotidine 20 mg PO Q12H 04/04/16 metoprolol (Lopressor) 25 mg PO Q12H 04/04/16 sodium chloride (Saline Flush 0.9%) 10 ml IVP Q12H Unscheduled Meds: None PRN Meds (12): 04/04/16 Dextrose 50% in Water IV (Dextrose 50% Syringe) 12.5 gm IVP PRN 04/04/16 Dextrose 50% in Water IV (Dextrose 50% Syringe) 25 gm IVP PRN 04/04/16 cloNIDine 0.1 mg PO Q8H 04/04/16 glucagon 1 mg IM PRN 04/04/16 insulin aspart 2 unit SUB-Q TID-Before Meals 04/04/16 insulin aspart 4 unit SUB-Q TID-Before Meals 04/04/16 insulin aspart 6 unit SUB-Q TID-Before Meals 04/04/16 insulin aspart 8 unit SUB-Q TID-Before Meals 04/04/16 insulin aspart 10 unit SUB-Q TID-Before Meals 04/04/16 labetalol 10 mg IVP Q10Min 04/04/16 morphine Sulfate 2 mg IVP Q6H 04/04/16 sodium chloride (Saline Flush 0.9%) 10 ml IVP PRN One Time Meds: None Continuous Infusions: None EXAM GEN - NAD HEENT - NC/AT. MMM. OP clear Ext - no c/c/e Skin - no rash Neuro: Mental status: Alert and oriented x3. Language intact. Follows all commands CN: PERRL, EOMI, no droop, facial sensation is normal Motor: 5/5 throughout Sensory: intact to LTx4 Cerebellar: intact ftn, hts Abnormal movements: none Assessment 1. TIA 2. DMT2 - uncontrolled 3. HTN - uncontrolled 4. HLD 5. Cavernous angioma 6. CKD Plan continue aspirin and statin discussed importance of dietary modification and BP control no therapy needs follow up echo - if no major abnormlaities, he can be discharged from the neuro standpoint with close neuro follow up in 2 weeks 04/05/2016 [facility] Plan of Care Plan of Care Date Source DM MICROALBUMIN URINE SCRN (YEARLY) 07/11/2018 [facility] DM HGBA1C (YEARLY) 07/05/2018 [facility] DM RETINAL EXAM (YEARLY) 05/10/2018 [facility] DM FOOT EXAM (YEARLY) 03/27/2018 [facility] COLORECTAL CANCER SCRN ANNUAL (FIT/FOBT) AGE 50 TO 75 2005 [facility] Social History Social History Date Source Smoking StatusStart DateEnd Date Unknown if ever smoked 02/16/2018 7:55:15 02/04/2018 SNF: [facility] Tobacco UseTypesPacks/DayYears UsedDate Never Smoker Smokeless Tobacco: Never Used Tobacco Cessation: Counseling Given: Yes Alcohol UseDrinks/Weekoz/WeekComments Yes 10 Cans of beer 5.0 6 pack of beer a week Sex Assigned at BirthDate Recorded Not on file 07/07/2017 [facility] Social History TypeResponse Substance Abuse Use: None. Alcohol Past, Type Beer. Last use: yesterday.1 Smoking Status Never smoker; Exposure to Tobacco Smoke None; Cigarette Smoking Last 365 Days No; Reg Smoking Cessation Counseling No entered on: 02/15/18 14 beers a week 04/04/2016 [facility] Social [facility] TypeResponse Substance Abuse Use: None. Alcohol Past, Type Beer. Last use: yesterday.1 Smoking Status Never smoker; Exposure to Tobacco Smoke None; Cigarette Smoking Last 365 Days No; Reg Smoking Cessation Counseling No entered on: 02/15/18 14 beers a week 04/04/2016 [facility] Family History Value Date Source Medical HistoryRelationNameComments Diabetes Father Arthritis Mother Diabetes Mother Heart Mother Hypertension Mother Alcohol/Drug Sister RelationNameStatusComments Father Mother Sister 01/19/2018 [facility] Advance Directives Order Name Results Value Date Source Advance Directives Advance Directives Cardiopulmonary Resuscitation 02/15/2018 SN[facility]: [facility] Advance Directives Advance Directives Cardiopulmonary Resuscitation 12/01/2017 SNF: [facility] Jennifer Opdyke [facility] Advance Directives Advance Directives Cardiopulmonary Resuscitation 11/30/2017 SNF: [facility] Functional Status No Data Provided for This Section
--- OUTSIDE RECORDS SUMMARY | 2019-02-28 06:12 | XMS REPORT | Summary of Care ---
Author Author [facility] Organization [facility] Address Unknown Phone Unavailable Encounter HQ Richard(FIN) [id number] Date(s): 01/02/18 - 01/29/18 [facility] [address] [place] [address]- [phone] Encounter Diagnosis Syncope and collapse (Final) - Discharge Disposition: Home or Self Care Attending Physician: Alcira Plummer MD Admitting Physician: Alcira Plummer MD Vital Signs 1 2 3 Most recent to oldest [Reference Range]: 175.26 cm (01/03/18 9:29 AM) 175.26 cm (01/02/18 5:28 AM) Height 58.295 kg (01/28/18 5:00 AM) 61.318 kg (01/22/18 4:27 AM) 60.909 kg (01/21/18 1:45 PM) Current Weight 97.4 DegF (01/29/18 3:15 PM) 97.4 DegF (01/29/18 11:44 AM) 97.8 DegF (01/29/18 7:30 AM) Temperature Oral [96.4-99.1 DegF] 181/80 mmHg *HI* (01/29/18 3:15 PM) 167/70 mmHg *HI* (01/29/18 11:44 AM) 105/55 mmHg (01/29/18 11:15 AM) Blood Pressure [90-140/60-90 mmHg] 18 BRMIN (01/29/18 3:15 PM) 19 BRMIN (01/29/18 11:44 AM) 18 BRMIN (01/29/18 11:15 AM) Respiratory Rate [14-20 BRMIN] 76 bpm (01/29/18 3:15 PM) 74 bpm (01/29/18 11:44 AM) 64 bpm (01/29/18 11:15 AM) Peripheral Pulse Rate [60-100 bpm] 56.449 kg (01/02/18 5:28 AM) Weight 18.38 m2 (01/02/18 5:28 AM) Body Mass Index Problem List Condition Effective Dates Status Health Status Informant Acinetobacter(Confir 01/04/18 Active med)1, 2 Diabetes(Confirmed) Active Enterobacter(Confirm 01/03/18 Active ed)3, 4 H/O: Resolved stroke(Confirmed) Hypertension(Confirm Active ed) Cancer of Active kidney(Confirmed) Primary cancer of Active skin of chest(Confirmed) Severe Active Chronic ; protein-calorie malnutrition(Confirm ed) VRE(Confirmed)5, 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 3wound, 01/03/2018 4Problem added by Discern Expert. 5wound, 01/04/2018 6Problem added by Discern Expert. Allergies, Adverse Reactions, Alerts Substance Reaction Severity Status NKDA Active Medications acetaminophen 650 mg, 2 tab, Route: PO, Drug form: TAB, Q4H, Dosing Weight 59.659, kg, PRN Roger n 1-3/Temp > 100.4 F, Start date: 01/02/18 4:25:00 CDT, Duration: 30 day, Stop date: 03/03/18 4:24:00 CDT Notes: Do not exceed 4 gm/day. (Same as: Tylenol) Start Date: 01/02/18 Stop Date: 01/29/18 Status: Discontinued acetaminophen-hydrocodone 325 mg-10 mg oral tablet 1 tab, Route: PO, Drug Form: TAB, Dosing Weight 56.449, kg, Q4H, PRN Pain Score 7-10, Start date: 01/09/18 15:51:00 CDT, Stop date: 02/08/18 15:50:00 CDT Notes: Do not exceed 4gm/day of acetaminophen. (Same as: [place] 325/10) Start Date: 01/09/18 Stop Date: 01/29/18 Status: Discontinued acetaminophen-hydrocodone 325 mg-5 mg oral tablet 1 tab, Route: PO, Drug Form: TAB, Dosing Weight 56.449, kg, Q4H, PRN Pain Score 4-6, Start date: 01/09/18 15:51:00 CDT, Stop date: 02/08/18 15:50:00 CDT Notes: (Same as: [place] 325/5) Do not exceed 4gm/day of acetaminophen. Start Date: 01/09/18 Stop Date: 01/29/18 Status: Discontinued amikacin + Sodium Chloride 0.9% IV 100 mL 400 mg, 1.6 mL, Route: IV, Drug form: INJ, ONCE, Dosing Weight 56.449, kg, Start date: 01/18/18 16:00:00 CDT, Stop date: 01/18/18 16:00:00 CDT Notes: TIME CRITICAL MEDICATION(Same as: Amikin)For adult patients only: Round t o nearest 50 mg per Medical Staff approval MEDICATION WASTE Product Size : 1000 mgProduct Wasted: ___ mg Start Date: 01/18/18 Stop Date: 01/19/18 Status: Completed amikacin + Sodium Chloride 0.9% IV 100 mL 250 mg, 1 mL, Route: IV, Drug form: INJ, Q-M-W-F, Dosing Weight 56.449, kg, Star t date: 01/19/18 17:00:00 CDT, Stop date: 01/31/18 17:00:00 CDT Notes: TIME CRITICAL MEDICATION(Same as: Amikin)For adult patients only: Round t o nearest 50 mg per Medical Staff approval MEDICATION WASTE Product Size : 500 mgProduct Wasted: ___ mg Start Date: 01/19/18 Stop Date: 01/29/18 Status: Discontinued Amikacin Pharmacy Dosing 1 ea, Route: MISC, Dosing Weight 56.449, kg, ONCALL, Start date: 01/18/18 15:00: 00 CDT, Duration: 1 doses or times, Pharmacy to dose Start Date: 01/18/18 Stop Date: 01/18/18 Status: Discontinued amLODIPine 5 mg, 1 tab, Route: PO, Drug form: TAB, Daily, Dosing Weight 56.449, kg, Start d ate: 01/23/18 9:45:00 CDT, Duration: 30 day, Stop date: 02/22/18 9:00:00 CDT Notes: (Same as: Norvasc) Start Date: 01/23/18 Stop Date: 01/25/18 Status: Discontinued amLODIPine 5 mg, 1 tab, Route: PO, Drug form: TAB, ONCE, Dosing Weight 56.449, kg, Start da te: 01/07/18 19:08:00 CDT, Stop date: 01/07/18 19:08:00 CDT Notes: (Same as: Matt) Start Date: 01/07/18 Stop Date: 01/07/18 Status: Completed amLODIPine 10 mg, 2 tab, Route: PO, Drug form: TAB, Daily, Dosing Weight 56.449, kg, Start date: 01/08/18 9:00:00 CDT, Duration: 30 day, Stop date: 02/06/18 9:00:00 CDT Notes: (Same as: Matt) Start Date: 01/08/18 Stop Date: 01/10/18 Status: Discontinued amLODIPine 5 mg, 1 tab, Route: PO, Drug form: TAB, Daily, Dosing Weight 56.449, kg, Start d ate: 01/03/18 12:30:00 CDT, Duration: 30 day, Stop date: 02/02/18 9:00:00 CDT Notes: (Same as: Matt) Start Date: 01/03/18 Stop Date: 01/07/18 Status: Discontinued ANES albuterol 0.083% inhalation solution 2.49 mg, Route: NEB, Q20Min, Dosing Weight 56.449, kg, PRN Wheezing, Priority: S TAT, Start date: 01/09/18 15:11:00 CDT, Duration: 30 day, Stop date: 02/08/18 15 :10:00 CDT Start Date: 01/09/18 Stop Date: 01/09/18 Status: Discontinued ANES diphenhydrAMINE 12.5 mg, Route: IVP, Drug form: INJ, Q6H, Dosing Weight 56.449, kg, PRN Itching, Start date: 01/09/18 15:11:00 CDT, Duration: 30 day, Stop date: 02/08/18 15:10: 00 CDT Start Date: 01/09/18 Stop Date: 01/09/18 Status: Discontinued ANES esmolol 10 mg, Route: IVP, Q5Min, Dosing Weight 56.449, kg, PRN Other -See Comment, Star t date: 01/09/18 15:11:00 CDT, Duration: 5 doses or times, Stop date: Limited # of times Start Date: 01/09/18 Stop Date: 01/09/18 Status: Discontinued ANES fentaNYL 25 microgram, Route: IVP, Q5Min, Dosing Weight 56.449, kg, PRN Pain Score 4-6, P riority: Routine, Start date: 01/09/18 15:11:00 CDT, Duration: 4 doses or times, Stop date: Limited # of times Start Date: 01/09/18 Stop Date: 01/09/18 Status: Discontinued ANES fentaNYL 50 microgram, Route: IVP, Q5Min, Dosing Weight 56.449, kg, PRN Pain Score 7-10, Priority: Routine, Start date: 01/09/18 15:11:00 CDT, Duration: 2 doses or times , Stop date: Limited # of times Start Date: 01/09/18 Stop Date: 01/09/18 Status: Discontinued ANES flumazenil 0.2 mg, Route: IVP, PRN, Dosing Weight 56.449, kg, PRN Benzodiazepine Reversal, Initial dose, Start date: 01/09/18 15:11:00 CDT, Duration: 30 day, Stop date: 15:10:00 CDT Start Date: 01/09/18 Stop Date: 01/09/18 Status: Discontinued ANES hydrALAZINE 10 mg, Route: IVP, Q20Min, Dosing Weight 56.449, kg, PRN Elevated BP, Start date : 01/09/18 15:11:00 CDT, Duration: 2 doses or times, Stop date: Limited # of henny es Start Date: 01/09/18 Stop Date: 01/09/18 Status: Discontinued ANES labetalol 10 mg, Route: IVP, Q5Min, Dosing Weight 56.449, kg, PRN Elevated BP, Start date: 01/09/18 15:11:00 CDT, Duration: 5 doses or times, Stop date: Limited # of times Start Date: 01/09/18 Stop Date: 01/09/18 Status: Discontinued ANES meperidine 12.5 mg, Route: IVP, Q30Min, Dosing Weight 56.449, kg, PRN Other -See Comment, F or shivering, Start date: 01/09/18 15:11:00 CDT, Duration: 2 doses or times, Sto p date: Limited # of times Start Date: 01/09/18 Stop Date: 01/09/18 Status: Discontinued ANES naloxone 0.4 mg, Route: IVP, Q2MIN, Dosing Weight 56.449, kg, PRN Narcotic Reversal, Star t date: 01/09/18 15:11:00 CDT, Duration: 8 doses or times, Stop date: Limited # of times Start Date: 01/09/18 Stop Date: 01/09/18 Status: Discontinued ANES ondansetron 4 mg, Route: IVP, ONCE, Dosing Weight 56.449, kg, PRN Nausea & Vomiting, Start date: 01/09/18 15:11:00 CDT Start Date: 01/09/18 Stop Date: 01/09/18 Status: Discontinued ANES promethazine 6.25 mg, Route: IVPB, ONCE, Dosing Weight 56.449, kg, PRN Nausea & Vomiting, Start date: 01/09/18 15:11:00 CDT Start Date: 01/09/18 Stop Date: 01/09/18 Status: Discontinued aspirin 81 mg tablet, enteric coated 81 mg, 1 tab, Route: PO, Drug form: ECTAB, Daily, Dosing Weight 56.449, kg, Star t date: 01/03/18 17:25:00 CDT, Duration: 30 day, Stop date: 03/04/18 9:00:00 CDT Notes: Do not crush or chew.(Same As: Ecotrin) Start Date: 01/03/18 Stop Date: 01/29/18 Status: Discontinued Ativan 1 mg, 0.5 mL, Route: IV, Drug form: INJ, ONCE, Dosing Weight 56.449, kg, Priorit y: Routine, Start date: 01/12/18 21:17:00 CDT, Stop date: 01/12/18 21:17:00 CDT Notes: (Same as: Ativan) Start Date: 01/12/18 Stop Date: 01/12/18 Status: Completed atorvastatin 40 mg, 1 tab, Route: PO, Drug form: TAB, Bedtime, Dosing Weight 56.449, kg, Star t date: 01/02/18 21:00:00 CDT, Duration: 30 day, Stop date: 03/02/18 21:00:00 CD T Notes: (Same as: Lipitor) Start Date: 01/02/18 Stop Date: 01/29/18 Status: Discontinued atropine (ANES) Route: IV, Drug form: INJ, ONCE, Stop date: 01/19/18 10:47:00 CDT Start Date: 01/19/18 Stop Date: 01/19/18 Status: Completed Benadryl 12.5 mg, 0.5 tab, Route: PO, Drug form: TAB, ONCE, Dosing Weight 56.449, kg, PRN Allergic reaction, Start date: 01/07/18 14:31:00 CDT Start Date: 01/07/18 Stop Date: 01/29/18 Status: Discontinued calcitriol 0.25 microgram, 1 cap, Route: PO, Drug form: CAP, Daily, Dosing Weight 56.449, k g, Start date: 01/23/18 9:00:00 CDT, Duration: 30 day, Stop date: 02/21/18 9:00: 00 CDT Notes: (Same As: Rocaltrol) Start Date: 01/23/18 Stop Date: 01/29/18 Status: Discontinued calcium acetate 667 mg oral tablet 2,001 mg, 3 cap, Route: PO, Drug form: CAP, TID-Meals, Dosing Weight 56.449, kg, Start date: 01/14/18 17:00:00 CDT, Duration: 30 day, Stop date: 02/13/18 12:00: 00 CDT Notes: Same as Phoslo Gel Cap Start Date: 01/14/18 Stop Date: 01/29/18 Status: Discontinued ceFAZolin (ANES) Route: IV, Drug form: INJ, ONCE, Stop date: 01/09/18 14:27:00 CDT Start Date: 01/09/18 Stop Date: 01/09/18 Status: Completed cloNIDine 0.1 mg, Route: PO, Drug form: TAB, Q8H, Dosing Weight 56.449, kg, PRN Elevated B P, Start date: 01/25/18 17:18:00 CDT, Duration: 30 day, Stop date: 02/24/18 17:1 7:00 CDT Start Date: 01/25/18 Stop Date: 01/25/18 Status: Discontinued colistimethate 150 mg, Route: IVPB, [id number], Dosing Weight 56.449, kg, Start date: 01/06/18 18: 00:00 CDT, Duration: 20 day, Stop date: 01/25/18 18:00:00 CDT, ABX Indication: B one/Joint Infection Start Date: 01/06/18 Stop Date: 01/06/18 Status: Deleted colistimethate + Sodium Chloride 0.9% IV 100 mL 85 mg, Route: IVPB, [id number], Start date: 01/07/18 20:00:00 CDT, Duration: 30 day , Stop date: 02/05/18 20:00:00 CDT, ABX Indication: Bone/Joint Infection Notes: (Same As: Coly-Mycin) Start Date: 01/07/18 Stop Date: 01/18/18 Status: Discontinued colistimethate + Sodium Chloride 0.9% IV 100 mL 280 mg, Route: IVPB, ONCE, Start date: 01/06/18 19:30:00 CDT, Stop date: 8 19:30:00 CDT, ABX Indication: Bone/Joint Infection Notes: (Same As: Coly-Mycin) Start Date: 01/06/18 Stop Date: 01/06/18 Status: Completed darbepoetin ruddy 200 microgram, Route: SUB-Q, Drug form: SOLN, Q7D, Dosing Weight 56.449, kg, Sta rt date: 01/20/18 10:00:00 CDT, Duration: 30 day, Stop date: 02/17/18 9:00:00 CD T Start Date: 01/20/18 Stop Date: 01/20/18 Status: Deleted Dextrose 5% in Water IV 1,000 mL 1,000 mL, Rate: 60 ml/hr, Infuse over: 16.7 hr, Route: IV, Dosing Weight 56.449 kg, Total Volume: 1,000, Start date: 01/18/18 11:41:00 CDT, Duration: 30 day, St op date: 02/17/18 11:40:00 CDT, 1.66, m2 Start Date: 01/18/18 Stop Date: 01/29/18 Status: Discontinued Dextrose 5% in Water IV 1,000 mL 1,000 mL, Rate: 40 ml/hr, Infuse over: 25 hr, Route: IV, Dosing Weight 56.449 kg , Total Volume: 1,000, Start date: 01/12/18 17:07:00 CDT, Duration: 30 day, Stop date: 02/11/18 17:06:00 CDT, 1.66, m2 Start Date: 01/12/18 Stop Date: 01/18/18 Status: Discontinued Dextrose 50% Syringe 12.5 gm, 25 mL, Route: IVP, Drug Form: INJ, Dosing Weight 56.449, kg, PRN, PRN B lood Glucose Results, Start date: 01/02/18 17:10:00 CDT, Duration: 30 day, Stop date: 02/01/18 17:09:00 CDT Start Date: 01/02/18 Stop Date: 01/04/18 Status: Discontinued Dextrose 50% Syringe 25 gm, 50 mL, Route: IVP, Drug Form: INJ, Dosing Weight 56.449, kg, PRN, PRN Blo od Glucose Results, Start date: 01/02/18 17:10:00 CDT, Duration: 30 day, Stop da te: 02/01/18 17:09:00 CDT Start Date: 01/02/18 Stop Date: 01/04/18 Status: Discontinued Dextrose 50% Syringe 25 gm, 50 mL, Route: IVP, Drug Form: INJ, Dosing Weight 56.449, kg, PRN, PRN Blo od Glucose Results, Start date: 01/04/18 22:03:00 CDT, Duration: 30 day, Stop da te: 02/03/18 22:02:00 CDT Start Date: 01/04/18 Stop Date: 01/29/18 Status: Discontinued Dextrose 50% Syringe 12.5 gm, 25 mL, Route: IVP, Drug Form: INJ, Dosing Weight 56.449, kg, PRN, PRN B lood Glucose Results, Start date: 01/04/18 22:03:00 CDT, Duration: 30 day, Stop date: 02/03/18 22:02:00 CDT Start Date: 01/04/18 Stop Date: 01/29/18 Status: Discontinued ePHEDrine (ANES) Route: IV, Drug form: INJ, ONCE, Stop date: 01/19/18 10:47:00 CDT Start Date: 01/19/18 Stop Date: 01/19/18 Status: Completed ePHEDrine (ANES) Route: IV, Drug form: INJ, ONCE, Stop date: 01/09/18 14:27:00 CDT Start Date: 01/09/18 Stop Date: 01/09/18 Status: Completed epoetin ruddy 10,000 unit, 1 mL, Route: SUB-Q, Drug form: INJ, Q-M-W-F, Start date: 01/20/18 1 7:00:00 CDT, Stop date: 02/16/18 17:00:00 CDT Notes: (Same as: Procrit) epoetin ruddy 16965 unit/1 ml VL.For dialysis use only. (Procrit)WASTE: F/P - Red; E -Red MEDICATION WASTE Product Size: 40330 unitProduct Wasted: ___ unit Start Date: 01/20/18 Stop Date: 01/29/18 Status: Discontinued ergocalciferol 50,000 IntlUnit, 1 cap, Route: PO, Drug form: CAP, Daily, Dosing Weight 56.449, kg, Start date: 01/20/18 9:00:00 CDT, Duration: 3 day, Stop date: 01/22/18 9:00: 00 CDT Notes: (Same as: Vitamin D) "Do Not Crush" Start Date: 01/20/18 Stop Date: 01/22/18 Status: Completed famotidine (ANES) Route: IV, Drug form: INJ, ONCE, Stop date: 01/19/18 10:47:00 CDT Start Date: 01/19/18 Stop Date: 01/19/18 Status: Completed fentaNYL (ANES) Route: IV, Drug form: INJ, ONCE, Stop date: 01/09/18 14:27:00 CDT Start Date: 01/09/18 Stop Date: 01/09/18 Status: Completed fentaNYL (ANES) Route: IV, Drug form: INJ, ONCE, Stop date: 01/19/18 10:47:00 CDT Start Date: 01/19/18 Stop Date: 01/19/18 Status: Completed fentaNYL (ANES) Route: IV, Drug form: INJ, ONCE, Stop date: 01/04/18 9:55:00 CDT Start Date: 01/04/18 Stop Date: 01/04/18 Status: Completed folic acid 1 mg, 1 tab, Route: PO, Drug form: TAB, Daily, Dosing Weight 56.449, kg, Start d ate: 01/23/18 9:00:00 CDT, Duration: 30 day, Stop date: 02/21/18 9:00:00 CDT Notes: (Same as: Folvite) Start Date: 01/23/18 Stop Date: 01/29/18 Status: Discontinued Geodon 10 mg, Route: IM, Drug form: PDR/INJ, Q6H, Dosing Weight 56.449, kg, PRN Agitati on, Start date: 01/17/18 20:19:00 CDT, Duration: 30 day, Stop date: 02/16/18 20: 18:00 CDT Notes: Reconstitute with 1.2 ml of sterile water. Final concentration=20 mg/1ml . Maximum 40 mg/24 hours (Same As: Geodon). MEDICATION WASTE Pr oduct Size: 20 mgProduct Wasted: ___ mg Start Date: 01/17/18 Stop Date: 01/29/18 Status: Discontinued Geodon 10 mg, Route: IM, Q6H, Dosing Weight 56.449, kg, Start date: 01/18/18 0:00:00 CD T, Duration: 30 day, Stop date: 02/16/18 18:00:00 CDT Start Date: 01/18/18 Stop Date: 01/17/18 Status: Canceled glucagon 1 mg, Route: IM, Drug form: PDR/INJ, PRN, Dosing Weight 56.449, kg, PRN Blood Gl ucose Results, Start date: 01/02/18 17:10:00 CDT, Duration: 30 day, Stop date: 0 02/01/18 17:09:00 CDT Start Date: 01/02/18 Stop Date: 01/04/18 Status: Discontinued glucagon 1 mg, Route: IM, Drug form: PDR/INJ, PRN, Dosing Weight 56.449, kg, PRN Blood Gl ucose Results, Start date: 01/04/18 22:03:00 CDT, Duration: 30 day, Stop date: 0 02/03/18 22:02:00 CDT Start Date: 01/04/18 Stop Date: 01/29/18 Status: Discontinued glycopyrrolate (ANES) Route: IV, Drug form: INJ, ONCE, Stop date: 01/19/18 10:47:00 CDT Start Date: 01/19/18 Stop Date: 01/19/18 Status: Completed heparin 5,000 unit, 1 mL, Route: SUB-Q, Drug form: INJ, Q8H, Dosing Weight 56.449, kg, S tart date: 01/04/18 0:00:00 CDT, Duration: 30 day, Stop date: 02/02/18 16:00:00 CDT Notes: porcine heparin Start Date: 01/04/18 Stop Date: 01/20/18 Status: Discontinued hydrALAZINE 10 mg, 0.5 mL, Route: IVP, Drug form: INJ, Q4H, Dosing Weight 56.449, kg, PRN Hy pertension, Start date: 01/26/18 16:56:00 CDT, Duration: 30 day, Stop date: 02/05 09/24 16:55:00 CDT Notes: (Same as: Apresoline)Push over 5 minutes Start Date: 01/26/18 Stop Date: 01/29/18 Status: Discontinued hydrALAZINE 10 mg, 0.5 mL, Route: IV, Drug form: INJ, Q4H, Dosing Weight 56.449, kg, PRN Hyp ertension, Start date: 01/19/18 12:03:00 CDT, Duration: 30 day, Stop date: 02/18 12:02:00 CDT Notes: (Same as: Apresoline)Push over 5 minutes Start Date: 01/19/18 Stop Date: 01/26/18 Status: Voided With Results hydrALAZINE 25 mg oral tablet 37.5 mg, 1.5 tab, Route: PO, Drug form: TAB, Q8H, Dosing Weight 56.449, kg, Star t date: 01/12/18 16:00:00 CDT, Stop date: 02/11/18 8:00:00 CDT Notes: (Same as: Apresoline) May interfere w/enteral feedings Take With Food. Start Date: 01/12/18 Stop Date: 01/29/18 Status: Discontinued hydrALAZINE 50 mg oral tablet 50 mg, 1 tab, Route: PO, Drug form: TAB, TID, Dosing Weight 56.449, kg, Start da te: 01/02/18 17:26:00 CDT, Duration: 30 day, Stop date: 02/01/18 17:00:00 CDT Notes: (Same as: Apresoline) May interfere w/enteral feedings Take With Food Start Date: 01/02/18 Stop Date: 01/10/18 Status: Discontinued insulin lispro 3 unit, 0.03 mL, Route: SUB-Q, Drug form: SOLN, Bedtime, Dosing Weight 56.449, k g, PRN Blood Glucose Results, Start date: 01/02/18 17:10:00 CDT, Duration: 30 da y, Stop date: 03/03/18 17:09:00 CDT Notes: (Same as: Humalog ) Roll in palms of hands gently; Do not shake `vigorou sly. "Single Patient Use Only " WASTE: F/P - Black; E - [facility] [employer] [address] able for 28 days at room temperature.Expires in days from Da te Start Date: 01/02/18 Stop Date: 01/29/18 Status: Discontinued insulin lispro 2 unit, 0.02 mL, Route: SUB-Q, Drug form: SOLN, Bedtime, Dosing Weight 56.449, k g, PRN Blood Glucose Results, Start date: 01/02/18 17:10:00 CDT, Duration: 30 da y, Stop date: 03/03/18 17:09:00 CDT Notes: (Same as: Humalog ) Roll in palms of hands gently; Do not shake `vigorou sly. "Single Patient Use Only " WASTE: F/P - Black; E - [facility] [address] able for 28 days at room temperature.Expires in days from Da te Start Date: 01/02/18 Stop Date: 01/29/18 Status: Discontinued insulin lispro 1 unit, 0.01 mL, Route: SUB-Q, Drug form: SOLN, Bedtime, Dosing Weight 56.449, k g, PRN Blood Glucose Results, Start date: 01/02/18 17:10:00 CDT, Duration: 30 da y, Stop date: 03/03/18 17:09:00 CDT Notes: (Same as: Humalog ) Roll in palms of hands gently; Do not shake `vigorou sly. "Single Patient Use Only " WASTE: F/P - Black; E - [facility] [address] able for 28 days at room temperature.Expires in days from Da te Start Date: 01/02/18 Stop Date: 01/29/18 Status: Discontinued insulin lispro 4 unit, 0.04 mL, Route: SUB-Q, Drug form: SOLN, Bedtime, Dosing Weight 56.449, k g, PRN Blood Glucose Results, Start date: 01/02/18 17:10:00 CDT, Duration: 30 da y, Stop date: 03/03/18 17:09:00 CDT Notes: (Same as: Humalog ) Roll in palms of hands gently; Do not shake `vigorou sly. "Single Patient Use Only " WASTE: F/P - Black; E - [facility] [address] able for 28 days at room temperature.Expires in days from Da te Start Date: 01/02/18 Stop Date: 01/29/18 Status: Discontinued insulin lispro 6 unit, 0.06 mL, Route: SUB-Q, Drug form: SOLN, TID-Before Meals, Dosing Weight 56.449, kg, PRN Blood Glucose Results, Start date: 01/02/18 17:10:00 CDT, Durati on: 30 day, Stop date: 02/01/18 17:09:00 CDT Notes: (Same as: Humalog ) Roll in palms of hands gently; Do not shake `vigorou sly. "Single Patient Use Only " WASTE: F/P - Black; E - [facility] [address] able for 28 days at room temperature.Expires in days from Da te Start Date: 01/02/18 Stop Date: 01/04/18 Status: Discontinued insulin lispro 8 unit, 0.08 mL, Route: SUB-Q, Drug form: SOLN, TID-Before Meals, Dosing Weight 56.449, kg, PRN Blood Glucose Results, Start date: 01/02/18 17:10:00 CDT, Durati on: 30 day, Stop date: 02/01/18 17:09:00 CDT Notes: (Same as: Humalog ) Roll in palms of hands gently; Do not shake `vigorou sly. "Single Patient Use Only " WASTE: F/P - Black; E - [facility] [address] able for 28 days at room temperature.Expires in days from Da te Start Date: 01/02/18 Stop Date: 01/04/18 Status: Discontinued insulin lispro 10 unit, 0.1 mL, Route: SUB-Q, Drug form: SOLN, TID-Before Meals, Dosing Weight 56.449, kg, PRN Blood Glucose Results, Start date: 01/02/18 17:10:00 CDT, Durati on: 30 day, Stop date: 02/01/18 17:09:00 CDT Notes: (Same as: Humalog ) Roll in palms of hands gently; Do not shake `vigorou sly. "Single Patient Use Only " WASTE: F/P - Black; E - [facility] [address] able for 28 days at room temperature.Expires in days from Da te Start Date: 01/02/18 Stop Date: 01/04/18 Status: Discontinued insulin lispro 2 unit, 0.02 mL, Route: SUB-Q, Drug form: SOLN, TID-Before Meals, Dosing Weight 56.449, kg, PRN Blood Glucose Results, Start date: 01/02/18 17:10:00 CDT, Durati on: 30 day, Stop date: 02/01/18 17:09:00 CDT Notes: (Same as: Humalog ) Roll in palms of hands gently; Do not shake `vigorou sly. "Single Patient Use Only " WASTE: F/P - Black; E - [facility] [address] able for 28 days at room temperature.Expires in days from Da te Start Date: 01/02/18 Stop Date: 01/04/18 Status: Discontinued insulin lispro 4 unit, 0.04 mL, Route: SUB-Q, Drug form: SOLN, TID-Before Meals, Dosing Weight 56.449, kg, PRN Blood Glucose Results, Start date: 01/02/18 17:10:00 CDT, Durati on: 30 day, Stop date: 02/01/18 17:09:00 CDT Notes: (Same as: Humalog ) Roll in palms of hands gently; Do not shake `vigorou sly. "Single Patient Use Only " WASTE: F/P - Black; E - [facility] [address] able for 28 days at room temperature.Expires in days from Da te Start Date: 01/02/18 Stop Date: 01/04/18 Status: Discontinued insulin lispro 9 unit, 0.09 mL, Route: SUB-Q, Drug form: SOLN, TID-Before Meals, Dosing Weight 56.449, kg, PRN Blood Glucose Results, Start date: 01/04/18 22:03:00 CDT, Durati on: 30 day, Stop date: 02/03/18 22:02:00 CDT Notes: (Same as: Humalog ) Roll in palms of hands gently; Do not shake `vigorou sly. "Single Patient Use Only " WASTE: F/P - Black; E - [facility] [address] able for 28 days at room temperature.Expires in days from Da te Start Date: 01/04/18 Stop Date: 01/29/18 Status: Discontinued insulin lispro 15 unit, 0.15 mL, Route: SUB-Q, Drug form: SOLN, TID-Before Meals, Dosing Weight 56.449, kg, PRN Blood Glucose Results, Start date: 01/04/18 22:03:00 CDT, Durat ion: 30 day, Stop date: 02/03/18 22:02:00 CDT Notes: (Same as: Humalog ) Roll in palms of hands gently; Do not shake `vigorou sly. "Single Patient Use Only " WASTE: F/P - Black; E - [facility] able for 28 days at room temperature.Expires in days from Da te Start Date: 01/04/18 Stop Date: 01/29/18 Status: Discontinued insulin lispro 12 unit, 0.12 mL, Route: SUB-Q, Drug form: SOLN, TID-Before Meals, Dosing Weight 56.449, kg, PRN Blood Glucose Results, Start date: 01/04/18 22:03:00 CDT, Durat ion: 30 day, Stop date: 02/03/18 22:02:00 CDT Notes: (Same as: Humalog ) Roll in palms of hands gently; Do not shake `vigorou sly. "Single Patient Use Only " WASTE: F/P - Black; E - [facility] able for 28 days at room temperature.Expires in days from Da te Start Date: 01/04/18 Stop Date: 01/29/18 Status: Discontinued insulin lispro 6 unit, 0.06 mL, Route: SUB-Q, Drug form: SOLN, TID-Before Meals, Dosing Weight 56.449, kg, PRN Blood Glucose Results, Start date: 01/04/18 22:03:00 CDT, Durati on: 30 day, Stop date: 02/03/18 22:02:00 CDT Notes: (Same as: Humalog ) Roll in palms of hands gently; Do not shake `vigorou sly. "Single Patient Use Only " WASTE: F/P - Black; E - [facility] able for 28 days at room temperature.Expires in days from Da te Start Date: 01/04/18 Stop Date: 01/29/18 Status: Discontinued insulin lispro 3 unit, 0.03 mL, Route: SUB-Q, Drug form: SOLN, TID-Before Meals, Dosing Weight 56.449, kg, PRN Blood Glucose Results, Start date: 01/04/18 22:03:00 CDT, Durati on: 30 day, Stop date: 02/03/18 22:02:00 CDT Notes: (Same as: Humalog ) Roll in palms of hands gently; Do not shake `vigorou sly. "Single Patient Use Only " WASTE: F/P - Black; E - Municipal Trash Bin St able for 28 days at room temperature.Expires in days from Da te Start Date: 01/04/18 Stop Date: 01/29/18 Status: Discontinued Gibson packet 1 pkt, Route: PO, Drug Form: PWDR, Dosing Weight 56.449, kg, BID-Before Meals, S tart date: 01/04/18 16:30:00 CDT, Duration: 14 day, Stop date: 01/18/18 7:30:00 CDT Notes: (Same as: Gibson Rico) Start Date: 01/04/18 Stop Date: 01/09/18 Status: Discontinued Gibson packet 1 pkt, Route: PO, Drug Form: PWDR, Dosing Weight 56.449, kg, BID-Before Meals, S tart date: 01/25/18 16:30:00 CDT, Duration: 14 day, Stop date: 02/08/18 7:30:00 CDT Notes: (Same as: Gibson Rico) Start Date: 01/25/18 Stop Date: 01/29/18 Status: Discontinued Lactated Ringers Injection IV 1,000 mL 1,000 mL, Rate: 125 ml/hr, Infuse over: 8 hr, Route: IV, Dosing Weight 56.449 kg , Total Volume: 1,000, Start date: 01/09/18 15:11:00 CDT, Duration: 30 day, Stop date: 02/08/18 15:10:00 CDT, 1.66, m2 Start Date: 01/09/18 Stop Date: 01/09/18 Status: Discontinued lidocaine (ANES) Route: IV, Drug form: INJ, ONCE, Stop date: 01/19/18 10:47:00 CDT Start Date: 01/19/18 Stop Date: 01/19/18 Status: Completed lidocaine (ANES) Route: IV, Drug form: INJ, ONCE, Stop date: 01/09/18 14:27:00 CDT Start Date: 01/09/18 Stop Date: 01/09/18 Status: Completed lisinopril 40 mg, 2 tab, Route: PO, Drug form: TAB, Daily, Dosing Weight 56.449, kg, Start date: 01/03/18 9:00:00 CDT, Duration: 30 day, Stop date: 03/03/18 9:00:00 CDT Notes: (Same as: Prinivil, Zestril) Start Date: 01/03/18 Stop Date: 01/29/18 Status: Discontinued Lopressor 2.5 mg, 2.5 mL, Route: IVP, Drug form: INJ, Q3H, Dosing Weight 56.449, kg, PRN T achycardia, Start date: 01/19/18 12:03:00 CDT, Duration: 30 day, Stop date: 02/04 12/22 12:02:00 CDT Notes: (Same as: Lopressor)Push over 2 minutes Start Date: 01/19/18 Stop Date: 01/29/18 Status: Discontinued magnesium sulfate 2 gm in Water 50 ml 2 gm, 50 mL, Route: IVPB, Drug form: INJ, ONCE, Dosing Weight 56.449, kg, Start date: 01/22/18 17:23:00 CDT, Stop date: 01/22/18 17:23:00 CDT Notes: WASTE: F/P - Sink; E - Municipal Trash Bin Start Date: 01/22/18 Stop Date: 01/22/18 Status: Completed meclizine 50 mg, 2 tab, Route: PO, Drug form: TAB, ONCE, Dosing Weight 59.659, kg, Priorit y: STAT, Start date: 01/02/18 2:18:00 CDT, Stop date: 01/02/18 2:18:00 CDT Notes: (Same as: Antivert) Start Date: 01/02/18 Stop Date: 01/02/18 Status: Completed meropenem 1,000 mg, Route: IV, Q24H, Dosing Weight 56.449, kg, Start date: 01/06/18 18:00: 00 CDT, Duration: 30 day, Stop date: 02/04/18 18:00:00 CDT, ABX Indication: Bone /Joint Infection Start Date: 01/06/18 Stop Date: 01/06/18 Status: Deleted meropenem + Sodium Chloride 0.9% IV 100 mL 500 mg, Route: IVPB, [id number], Start date: 01/06/18 20:00:00 CDT, Duration: 30 da y, Stop date: 02/04/18 21:00:00 CDT, ABX Indication: Bone/Joint Infection Notes: Same as Merrem MEDICATION WASTE Product Size: 500 mgProduct Wast ed: ___ mg Start Date: 01/06/18 Stop Date: 01/18/18 Status: Discontinued metoprolol tartrate 25 mg, 1 tab, Route: PO, Drug form: TAB, Q12H, Dosing Weight 56.449, kg, Start d ate: 01/02/18 21:00:00 CDT, Duration: 30 day, Stop date: 02/01/18 9:00:00 CDT Notes: (Same as: Lopressor) Start Date: 01/02/18 Stop Date: 01/25/18 Status: Voided With Results midazolam (ANES) Route: IV, Drug form: SOLN, ONCE, Stop date: 01/09/18 14:22:00 CDT Start Date: 01/09/18 Stop Date: 01/09/18 Status: Completed midazolam (ANES) Route: IV, Drug form: SOLN, ONCE, Stop date: 01/19/18 10:47:00 CDT Start Date: 01/19/18 Stop Date: 01/19/18 Status: Deleted midazolam (ANES) Route: IV, Drug form: SOLN, ONCE, Stop date: 01/04/18 9:55:00 CDT Start Date: 01/04/18 Stop Date: 01/04/18 Status: Completed morphine Sulfate 6 mg, 3 mL, Route: PO, Drug form: SOLN, Q4H, Dosing Weight 56.449, kg, PRN Chest Pain, Start date: 01/19/18 12:03:00 CDT, Stop date: 02/18/18 12:02:00 CDT Notes: (Same as:MORPhine Sulfate) Start Date: 01/19/18 Stop Date: 01/29/18 Status: Discontinued Nifedical XL 90 mg, 1 tab, Route: PO, Drug form: ERTAB, Daily, Dosing Weight 56.449, kg, Star t date: 01/26/18 9:00:00 CDT, Stop date: 02/24/18 9:00:00 CDT Notes: (Same as: Adalat CC,Procardia XL)"Do Not Crush" "Avoid grapefruit and gr apefruit juice" Start Date: 01/26/18 Stop Date: 01/29/18 Status: Discontinued NIFEdipine 90 mg oral tablet, extended release 90 mg=1 tab, PO, Daily, # 30 tab, 0 Refill(s), Pharmacy: [facility]/pharmacy #[id number] Start Date: 01/29/18 Stop Date: 02/28/18 Status: Ordered Nitrostat 0.4 mg sublingual tablet 0.4 mg, 1 tab, Route: SL, Drug form: TAB, Q5Min, Dosing Weight 56.449, kg, PRN C hest Pain, Start date: 01/19/18 12:03:00 CDT, Duration: 3 doses or times, Stop d ate: Limited # of times Notes: (Same as:Nitroquick, Nitrostat)"Do Not Crush" Sublingual tablet Start Date: 01/19/18 Stop Date: 01/29/18 Status: Discontinued Nitrostat 0.4 mg sublingual tablet 0.4 mg=1 tab, SL, Q5Min, PRN Chest Pain, # 25 tab, 0 Refill(s), Pharmacy: [facility] #[id number] Start Date: 01/29/18 Status: Ordered norepinephrine (ANES) Route: IV, Drug form: INJ, ONCE, Stop date: 01/19/18 10:47:00 CDT Start Date: 01/19/18 Stop Date: 01/19/18 Status: Completed NS (Bolus) IV 500 mL, 500 ml/hr, Infuse Over: 1 hr, Route: IV, 500, Drug form: INJ, ONCE, Prio rity: STAT, Dosing Weight 59.659 kg, Start date: 01/02/18 1:34:00 CDT, Stop date : 01/02/18 1:34:00 CDT Start Date: 01/02/18 Stop Date: 01/02/18 Status: Completed NS 500 mL 500 mL, Rate: 50 ml/hr, Infuse over: 10 hr, Route: IV, Dosing Weight 56.449 kg, Total Volume: 500, Start date: 01/06/18 13:31:00 CDT, Duration: 10 hr, Stop date : 01/06/18 23:30:00 CDT, 1.66, m2 Start Date: 01/06/18 Stop Date: 01/06/18 Status: Completed NS 500 mL 500 mL, Rate: 25 ml/hr, Infuse over: 20 hr, Route: IV, Dosing Weight 56.449 kg, Total Volume: 500, Start date: 01/04/18 9:36:00 CDT, Duration: 30 day, Stop date : 02/03/18 9:35:00 CDT, 1.66, m2 Start Date: 01/04/18 Stop Date: 01/06/18 Status: Discontinued ondansetron 4 mg, 1 tab, Route: PO, Drug form: TAB, Q6H, Dosing Weight 59.659, kg, PRN Nause a & Vomiting, Start date: 01/02/18 4:25:00 CDT, Duration: 30 day, Stop date: 03/03/18 4:24:00 CDT Notes: (Same as: Zofran) Start Date: 01/02/18 Stop Date: 01/29/18 Status: Discontinued phenylephrine (ANES) Route: IV, Drug form: INJ, ONCE, Stop date: 01/04/18 10:20:00 CDT Start Date: 01/04/18 Stop Date: 01/04/18 Status: Completed phenylephrine (ANES) Route: IV, Drug form: INJ, ONCE, Stop date: 01/09/18 14:42:00 CDT Start Date: 01/09/18 Stop Date: 01/09/18 Status: Completed PHOS-NaK 1 pkt, Route: PO, Drug Form: PDR/REC, Dosing Weight 56.449, kg, QID-Before Meals , Start date: 01/23/18 11:30:00 CDT, Duration: 1 day, Stop date: 01/24/18 7:30:0 0 CDT Notes: (Same as: Phos-NaK) Each 1.5 gm pkt has 250mg phosphorous. Mix w/2.5oz w ater and stir. Start Date: 01/23/18 Stop Date: 01/24/18 Status: Completed potassium chloride 30 mEq, Route: IV, ONCE, Dosing Weight 56.449, kg, Start date: 01/21/18 9:47:00 CDT, Stop date: 01/21/18 9:47:00 CDT Start Date: 01/21/18 Stop Date: 01/21/18 Status: Deleted potassium chloride + Sodium Chloride 0.9% IV 95 mL 10 mEq, 5 mL, Route: IVPB, Q1H, Start date: 01/21/18 11:00:00 CDT, Duration: 3 d oses or times, Stop date: 01/21/18 13:00:00 CDT Notes: MUST be Diluted before use(Same as: KCl) MEDICATION WASTE Product Size: 40 mEqProduct Wasted: ___ mEq Start Date: 01/21/18 Stop Date: 01/21/18 Status: Completed potassium chloride 20 mEq oral tablet, extended release 20 mEq, 1 tab, Route: PO, Drug form: ERTAB, ONCE, Dosing Weight 56.449, kg, Star t date: 01/20/18 9:54:00 CDT, Stop date: 01/20/18 9:54:00 CDT Notes: (Same as: K-Dur 20)"Do Not Crush"For patients unable to swallow tablet, d issolve in one half glass of water. Allow about 2 minutes for the tablets to dis integrate. Stir before giving to prepare slurry and administer.Please exclude Pa tients with feeding tube less than 14 Brazilian (Dobhoff, J-tube etc) and pediat serene and patients. With food and full glass of water Start Date: 01/20/18 Stop Date: 01/20/18 Status: Completed propofol (ANES) Route: IV, Drug form: INJ, ONCE, Stop date: 01/19/18 10:47:00 CDT Start Date: 01/19/18 Stop Date: 01/19/18 Status: Completed propofol (ANES) Route: IV, Drug form: INJ, ONCE, Stop date: 01/09/18 14:27:00 CDT Start Date: 01/09/18 Stop Date: 01/09/18 Status: Completed propofol (ANES) Route: IV, Drug form: INJ, ONCE, Stop date: 01/04/18 9:55:00 CDT Start Date: 01/04/18 Stop Date: 01/04/18 Status: Completed Restore Hydrogel topical gel 1 appl, Route: TOP, Dosing Weight 56.449, kg, BID, Start date: 01/05/18 17:00:00 CDT, Duration: 30 day, Stop date: 02/04/18 9:00:00 CDT Start Date: 01/05/18 Stop Date: 01/29/18 Status: Discontinued risperiDONE 0.5 mg, 1 tab, Route: PO, Drug form: TAB, Q6H, Dosing Weight 56.449, kg, PRN Damaris tation, Start date: 01/13/18 6:23:00 CDT, Duration: 30 day, Stop date: 02/12/18 6:22:00 CDT Notes: (Same as: Risperdal) Start Date: 01/13/18 Stop Date: 01/29/18 Status: Discontinued risperiDONE 0.25 mg, 1 tab, Route: PO, Drug form: TAB, BID, Dosing Weight 56.449, kg, Start date: 01/13/18 9:00:00 CDT, Duration: 30 day, Stop date: 02/11/18 17:00:00 CDT Notes: (Same as: Risperdal) Start Date: 01/13/18 Stop Date: 01/23/18 Status: Discontinued Saline Flush 0.9% 10 mL, Route: IVP, Drug Form: INJ, Dosing Weight 59.659, kg, PRN, PRN Line Flush , Start date: 01/02/18 1:33:00 CDT, Duration: 30 day, Stop date: 02/01/18 1:32:0 0 CDT Notes: (Same as: BD Posiflush) Start Date: 01/02/18 Stop Date: 01/02/18 Status: Discontinued Saline Flush 0.9% 10 mL, Route: IVP, Drug Form: INJ, Dosing Weight 59.659, kg, PRN, PRN Line Flush , Start date: 01/02/18 1:37:00 CDT, Duration: 30 day, Stop date: 02/01/18 1:36:0 0 CDT Notes: (Same as: BD Posiflush) Start Date: 01/02/18 Stop Date: 01/02/18 Status: Discontinued scopolamine (ANES) Route: Transdermal, Drug form: ERFILM, ONCE, Stop date: 01/04/18 10:05:00 CDT Start Date: 01/04/18 Stop Date: 01/04/18 Status: Completed SEROquel 25 mg, 1 tab, Route: PO, Drug form: TAB, Q6H, Dosing Weight 56.449, kg, PRN Agit ation, Start date: 01/11/18 23:41:00 CDT, Duration: 30 day, Stop date: 02/10/18 23:40:00 CDT Notes: (Same as: SEROquel) Start Date: 01/11/18 Stop Date: 01/13/18 Status: Discontinued Sodium Chloride 0.9% (Bolus) IV 500 mL, Route: IV, ONCE, Dosing Weight 56.449 kg, Start date: 01/09/18 11:50:00 CDT, Stop date: 01/09/18 11:50:00 CDT, Bolus Start Date: 01/09/18 Stop Date: 01/09/18 Status: Completed Sodium Chloride 0.9% (titrate) 250 mL 250 mL, Rate: To prime line and flush remaining blood products., Dosing Weight 5 6.449, kg, Route: IV, Total Volume: 250, Priority: Routine, Start Date: 01/17/18 11:38:00 CDT, Duration: 2 day, Stop date: 01/19/18 11:37:00 CDT, Replace Every: 24 hr Start Date: 01/17/18 Stop Date: 01/19/18 Status: Completed Sodium Chloride 0.9% IV (ANES) 500 mL Route: IV, Total Volume: 500, Start date: 01/19/18 9:41:00 CDT, Stop date: 01/19 10:41:00 CDT Start Date: 01/19/18 Stop Date: 01/19/18 Status: Completed Sodium Chloride 0.9% IV (ANES) 500 mL Route: IV, Total Volume: 500, Start date: 01/04/18 9:08:00 CDT, Stop date: 01/04 10:08:00 CDT Start Date: 01/04/18 Stop Date: 01/04/18 Status: Completed Sodium Chloride 0.9% IV (ANES) 500 mL Route: IV, Total Volume: 500, Start date: 01/09/18 13:36:00 CDT, Stop date: 12/22 14:36:00 CDT Start Date: 01/09/18 Stop Date: 01/09/18 Status: Completed Sodium Chloride 0.9% IV 500 mL 500 mL, Rate: 25 ml/hr, Infuse over: 20 hr, Route: IV, Dosing Weight 56.449 kg, Total Volume: 500, Start date: 01/19/18 9:55:00 CDT, Duration: 30 day, Stop date : 02/18/18 9:54:00 CDT, 1.66, m2 Start Date: 01/19/18 Stop Date: 01/19/18 Status: Discontinued terbutaline 0.25 mg, 0.25 mL, Route: SUB-Q, Drug form: INJ, Q6H, Dosing Weight 56.449, kg, P RN Bradycardia, Start date: 01/19/18 12:03:00 CDT, Duration: 30 day, Stop date: 02/18/18 12:02:00 CDT Notes: DO NOT USE IN SU[employer]VISOR [employer]IN[employer] AREA(Same As: Nita) Start Date: 01/19/18 Stop Date: 01/29/18 Status: Discontinued thiamine 100 mg, 1 mL, Route: IVP, Drug form: INJ, Daily, Dosing Weight 56.449, kg, Start date: 01/19/18 16:00:00 CDT, Duration: 30 day, Stop date: 02/18/18 9:00:00 CDT Notes: (Same As: Vitamin B1) Start Date: 01/19/18 Stop Date: 01/29/18 Status: Discontinued Unasyn + Sodium Chloride 0.9% IV 100 mL 3 gm, Route: IVPB, [id number], Dosing Weight 56.449, kg, Start date: 01/18/18 17:00 :00 CDT, Duration: 30 day, Stop date: 02/17/18 11:00:00 CDT Notes: Dosing based on Ampicillin component (Same as: Unasyn) Start Date: 01/18/18 Stop Date: 01/29/18 Status: Discontinued vancomycin + Dextrose 5% in Water IV 250 mL 750 mg, Route: IVPB, ONCE, Start date: 01/03/18 17:00:00 CDT, Stop date: 8 17:00:00 CDT, ABX Indication: Bone/Joint Infection Notes: TIME CRITICAL MEDICATION(Same As: Vancocin)Infusion rate< 1000 mg: infuse over 1 [id number] - 1500 mg: infuse over 1.5 [id number] - 2000 mg: infuse over 2 hours> 2001 mg: infuse over 2.5 hoursFor adult patients only: Round to nearest 250 mg per Medical Staff approval MEDICATION WASTE Product Size: 1000 mgProduct Wasted: ___ mg Start Date: 01/03/18 Stop Date: 01/03/18 Status: Completed vancomycin + Sodium Chloride 0.9% IV 100 mL 500 mg, Route: IVPB, [id number], Start date: 01/05/18 17:00:00 CDT, Duration: 30 da y, Stop date: 02/02/18 17:00:00 CDT, ABX Indication: Bone/Joint Infection Notes: TIME CRITICAL MEDICATION(Same As: Vancocin)For adult patients only: Round to nearest 250 mg per Medical Staff approval Start Date: 01/05/18 Stop Date: 01/05/18 Status: Discontinued Vancomycin Pharmacy Dosing 1 ea, Route: MISC, ONCALL, Dosing Weight 56.449, kg, Start date: 01/03/18 13:00: 00 CDT, Duration: 30 day, Stop date: 02/02/18 12:59:00 CDT, Pharmacy to dose, AB X Indication: Skin/Soft Tissue Infection Start Date: 01/03/18 Stop Date: 01/03/18 Status: Canceled Vitamin B12 500 microgram, 1 tab, Route: PO, Drug form: TAB, Daily, Dosing Weight 56.449, kg , Start date: 01/20/18 9:00:00 CDT, Duration: 30 day, Stop date: 02/18/18 9:00:0 0 CDT Notes: (Same As: Vitamin B12) Start Date: 01/20/18 Stop Date: 01/29/18 Status: Discontinued Zosyn 3.375 gm, Route: IVPB, Drug form: PDR/INJ, [id number], Dosing Weight 56.449, kg, Cr Cl < 20 ml/min infuse over 4 hours, Start date: 01/03/18 13:00:00 CDT, Duration: 30 day, Stop date: 02/02/18 1:00:00 CDT, ABX Indication: Skin/Soft Tissue Infection Start Date: 01/03/18 Stop Date: 01/03/18 Status: Canceled Zosyn + Sodium Chloride 0.9% IV 100 mL 3.375 mg, Route: IVPB, [id number], Dosing Weight 56.449, kg, CrCl < 20 ml/min infuse over 4 hours, Start date: 01/03/18 13:00:00 CDT, Duration: 30 day, Stop date: 02/01/18 17:00:00 CDT, ABX Indication: Skin/Soft Tissue Infection Notes: (Same as: Zosyn)Dosing based on Piperacillin component MEDICATION WA COLIN Product Size: 3375 mgProduct Wasted: ___ mg Start Date: 01/03/18 Stop Date: 01/06/18 Status: Discontinued Results BLOOD BANK RESULTS Most recent to 4 oldest [Reference Range]: ABO/Rh O POS O POS *Unknown* *Unknown* (01/17/18 3:39 PM) (01/08/18 5:14 PM) Antibody Scrn Negative Negative (01/17/18 3:39 PM) (01/08/18 5:14 PM) RBC product Product available 1 Product available (01/20/18 6:59 AM) (01/17/18 11:38 AM) 1Result Comment: 01/20/2018 07:52 [id number] Called to Jose E Daniels at 01/20/2018 07:46 by Ross Meredith. ELECTROLYTES Most recent to 1 2 3 4 oldest [Reference Range]: Sodium Lvl [135-145 132 mEq/L 135 mEq/L 142 mEq/L mEq/L] *LOW* (01/25/18 6:52 AM) (01/24/18 5:19 AM) (01/29/18 5:55 AM) Potassium Lvl 3.7 mEq/L 3.3 mEq/L 3.0 mEq/L 1 [3.5-5.1 mEq/L] (01/29/18 5:55 AM) *LOW* *CRIT* (01/25/18 6:52 AM) (01/24/18 5:19 AM) Chloride Lvl [95-109 97 mEq/L 100 mEq/L 104 mEq/L mEq/L] (01/29/18 5:55 AM) (01/25/18 6:52 AM) (01/24/18 5:19 AM) CO2 [24-32 mEq/L] 28 mEq/L 30 mEq/L 30 mEq/L (01/29/18 5:55 AM) (01/25/18 6:52 AM) (01/24/18 5:19 AM) AGAP [10.0-20.0 10.7 mEq/L 8.3 mEq/L 11.0 mEq/L mEq/L] (01/29/18 5:55 AM) *LOW* (01/24/18:19 AM) (01/25/18 6:52 AM) 1Result Comment: Critical Result(s) called to georgina jensen_ at 01/24/2018 06:30 byjw. Read back OK. CHEM PANEL Most recent to 1 2 3 4 oldest [Reference Range]: Creatinine Lvl 3.88 mg/dL 2.44 mg/dL 1.35 mg/dL [0.50-1.40 mg/dL] *HI* *HI* (01/24/18 5:19 AM) (01/29/18 5:55 AM) (01/25/18 6:52 AM) eGFR 16 mL/min/1.73m2 1 27 mL/min/1.73m2 2 56 mL/min/1.73m2 3 *NA* *NA* *NA* (01/29/18 5:55 AM) (01/25/18 6:52 AM) (01/24/18 5:19 AM) BUN [7-22 mg/dL] 19 mg/dL 5 mg/dL 2 mg/dL (01/29/18 5:55 AM) *LOW* *LOW* (01/25/18 6:52 AM) (01/24/18 5:19 AM) B/C Ratio [6-25] 4 3 8 *LOW* *LOW* (01/03/18 4:26 AM) (01/22/18 5:37 AM) (01/21/18 5:12 AM) Glucose Lvl [70-99 101 mg/dL 87 mg/dL 87 mg/dL mg/dL] *HI* (01/25/18 6:52 AM) (01/24/18 5:19 AM) (01/29/18 5:55 AM) Uric Acid [3.8-8.0 3.0 mg/dL mg/dL] *LOW* (01/19/18 1:38 PM) Total Protein 5.9 g/dL 6.1 g/dL 5.7 g/dL [6.4-8.4 g/dL] *LOW* *LOW* *LOW* (01/22/18 5:37 AM) (01/21/18 5:12 AM) (01/20/18 5:18 AM) Albumin Lvl [3.5-5.0 2.2 g/dL 2.3 g/dL 2.4 g/dL g/dL] *LOW* *LOW* *LOW* (01/23/18 4:17 AM) (01/22/18 5:37 AM) (01/21/18 5:12 AM) Globulin [2.7-4.2 3.6 g/dL 3.7 g/dL 3.2 g/dL g/dL] (01/22/18 5:37 AM) (01/21/18 5:12 AM) (01/20/18 5:18 AM) A/G Ratio [0.7-1.6] 0.6 0.6 0.8 *LOW* *LOW* (01/20/18 5:18 AM) (01/22/18 5:37 AM) (01/21/18 5:12 AM) Calcium Lvl 11.5 mg/dL 10.4 mg/dL 9.4 mg/dL [8.5-10.5 mg/dL] *HI* (01/25/18 6:52 AM) (01/24/18 5:19 AM) (01/29/18 5:55 AM) Phosphorus [2.5-4.5 3.8 mg/dL 1.3 mg/dL 1.6 mg/dL mg/dL] (01/29/18 5:55 AM) *CRIT* *LOW* (01/24/18 5:19 AM) (01/23/18 4:17 AM) Magnesium Lvl 1.9 mg/dL 1.9 mg/dL 1.7 mg/dL [1.8-2.4 mg/dL] (01/29/18 5:55 AM) (01/24/18 5:19 AM) *LOW* (01/22/18 5:37 AM) ALT [0-65 unit/L] 11 unit/L 8 unit/L 9 unit/L (01/22/18 5:37 AM) (01/21/18 5:12 AM) (01/20/18 5:18 AM) AST [0-37 unit/L] 17 unit/L 17 unit/L 19 unit/L (01/22/18 5:37 AM) (01/21/18 5:12 AM) (01/20/18 5:18 AM) Alk Phos [39-136 108 unit/L 93 unit/L 69 unit/L unit/L] (01/22/18 5:37 AM) (01/21/18 5:12 AM) (01/20/18 5:18 AM) Bili Total [0.2-1.3 0.4 mg/dL 0.9 mg/dL 0.3 mg/dL mg/dL] (01/22/18 5:37 AM) (01/21/18 5:12 AM) (01/20/18 5:18 AM) Bili Direct [0.0-0.3 0.1 mg/dL mg/dL] (01/20/18 5:18 AM) Bili Indirect 0.2 mg/dL [0.0-1.0 mg/dL] (01/20/18 5:18 AM) Amylase Lvl [25-115 14 unit/L unit/L] *LOW* (01/19/18 1:38 PM) Lipase Lvl [73-393 39 unit/L 31 unit/L 41 unit/L unit/L] *LOW* *LOW* *LOW* (01/22/18 5:37 AM) (01/21/18 5:12 AM) (01/20/18 5:18 AM) Lactic Acid Lvl 1.2 mMol/L [0.5-2.2 mMol/L] (01/02/18 1:51 AM) Vitamin B1 79.2 nMol/L 4 [66.5-200.0 nMol/L] *NA* (01/19/18 1:38 PM) Vitamin D, 25-OH, 9.4 ng/mL Total [30.0-100.0 *LOW* ng/mL] (01/19/18 1:38 PM) 1Result Comment: The eGFR is calculated using the [...] from the National Kidney Disease Education Program ( NKDEP) which additionally recommends that when the eGFR is used in patients with extremes of body mass index for purposes of drug dosing, the eGFR should be mul tiplied by the estimated BMI. 2Result Comment: The eGFR is calculated using the [...] from the National Kidney Disease Education Program ( NKDEP) which additionally recommends that when the eGFR is used in patients with extremes of body mass index for purposes of drug dosing, the eGFR should be mul tiplied by the estimated BMI. 3Result Comment: The eGFR is calculated using the [...] from the National Kidney Disease Education Program ( NKDEP) which additionally recommends that when the eGFR is used in patients with extremes of body mass index for purposes of drug dosing, the eGFR should be mul tiplied by the estimated BMI. 4Result Comment: This test was developed and its performance characteristics determined by [facility]. It has not been cleared or approved by the Food and Drug Administration. Performed At: [address] [id number] Jennifer Vinson MD Ph:[phone] CARDIAC ENZYMES Most recent to 1 2 3 4 oldest [Reference Range]: Total CK [12-191 57 unit/L 77 unit/L 54 unit/L 58 unit/L unit/L] (01/15/18 8:10 AM) (01/14/18 11:21 PM) (01/02/18 1:51 AM) (01/02/18 1:51 AM) CK MB [0.5-3.6 1.9 ng/mL 5.0 ng/mL 4.9 ng/mL ng/mL] (01/14/18 11:21 PM) *HI* *HI* (01/02/18 1:51 AM) (01/02/18 1:51 AM) CK MB Index 2.5 8.4 9.3 [0.0-2.5] (01/14/18 11:21 PM) *HI* *HI* (01/02/18 1:51 AM) (01/02/18 1:51 AM) Troponin-I <0.02 ng/mL 0.02 ng/mL <0.02 ng/mL <0.02 ng/mL [0.00-0.40 ng/mL] (01/15/18 8:10 AM) (01/14/18 11:21 PM) (01/02/18 1:51 AM) (01/02/18 1:51 AM) BNP [<=100 pg/mL] 815 pg/mL 1078 pg/mL *HI* *HI* (01/19/18 1:38 PM) (01/02/18 1:51 AM) LIPIDS Most recent to 1 2 3 4 oldest [Reference Range]: CHD Risk [4.00-7.30] 4.67 (01/19/18 1:38 PM) Chol [<=199 mg/dL] 84 mg/dL (01/19/18 1:38 PM) Trig [<=149 mg/dL] 108 mg/dL (01/19/18 1:38 PM) HDL [>=61 mg/dL] 18 mg/dL *LOW* (01/19/18 1:38 PM) LDL (Calculated) 44 mg/dL [<=99 mg/dL] (01/19/18 1:38 PM) VLDL 22 *NA* (01/19/18 1:38 PM) SPECIAL CHEMISTRY Most recent to 1 2 3 4 oldest [Reference Range]: Hgb A1C [<=5.6 %] 5.9 % 6.9 % *HI* *HI* (01/19/18 1:38 PM) (01/04/18 6:13 AM) ANEMIA STUDY Most recent to 1 2 3 4 oldest [Reference Range]: Iron [45-160 ug/dl] 41 ug/dl *LOW* (01/21/18 5:12 AM) Ferritin Lvl [22-275 589 ng/mL 520 ng/mL ng/mL] *HI* *HI* (01/21/18 5:12 AM) (01/15/18 8:10 AM) % Satur Fe [12-57 %] 25 % (01/21/18 5:12 AM) UIBC [110-370 ug/dl] 125 ug/dl (01/21/18 5:12 AM) Vitamin B12 Lvl >2000 pg/mL [254-1320 pg/mL] *HI* (01/21/18 5:12 AM) Folate Lvl [>=3.0 3.3 ng/mL ng/mL] (01/21/18 5:12 AM) TIBC [228-428 ug/dl] 166 ug/dl *LOW* (01/21/18 5:12 AM) Transferrin [212-360 72 mg/dL mg/dL] *LOW* (01/20/18 5:18 AM) PARATHYROID PROFILE Most recent to 1 2 3 4 oldest [Reference Range]: PTH Intact 9.0 pg/mL [18.4-80.1 pg/mL] *LOW* (01/22/18 5:37 AM) TOXICOLOGY Most recent to 1 2 3 4 oldest [Reference Range]: Amikacin Lvl 7.0 ug/ml 5.9 ug/ml *NA* *NA* (01/29/18 5:55 AM) (01/22/18 5:37 AM) IMMUNOLOGY Most recent to 1 3 4 oldest [Reference Range]: Haptoglobin [16-200 132 mg/dL mg/dL] (01/20/18 3:50 PM) Homocyst Tot 9.2 uMol/L [3.7-13.9 uMol/L] (01/19/18 1:38 PM) Hep Bs Ag [Negative] Negative Negative *NA* *NA* (01/19/18 1:38 PM) (01/03/18 9:10 AM) HEMATOLOGY Most recent to 1 2 3 4 oldest [Reference Range]: WBC [3.7-10.4 K/CMM] 14.7 K/CMM 11.0 K/CMM 11.2 K/CMM *HI* *HI* *HI* (01/29/18 5:55 AM) (01/27/18 5:13 AM) (01/25/18 6:52 AM) RBC [4.70-6.10 3.33 M/CMM 3.17 M/CMM 3.23 M/CMM M/CMM] *LOW* *LOW* *LOW* (01/29/18 5:55 AM) (01/27/18 5:13 AM) (01/25/18 6:52 AM) Hgb [14.0-18.0 g/dL] 9.3 g/dL 9.2 g/dL 9.1 g/dL *LOW* *LOW* *LOW* (01/29/18 5:55 AM) (01/27/18 5:13 AM) (01/25/18 6:52 AM) Hct [42.0-54.0 %] 28.7 % 27.5 % 27.7 % *LOW* *LOW* *LOW* (01/29/18 5:55 AM) (01/27/18 5:13 AM) (01/25/18 6:52 AM) MCV [80.0-94.0 fL] 86.4 fL 86.9 fL 85.7 fL (01/29/18 5:55 AM) (01/27/18 5:13 AM) (01/25/18 6:52 AM) MCH [27.0-31.0 pg] 28.1 pg 29.1 pg 28.1 pg (01/29/18 5:55 AM) (01/27/18 5:13 AM) (01/25/18 6:52 AM) MCHC [32.0-36.0 32.5 g/dL 33.5 g/dL 32.8 g/dL g/dL] (01/29/18 5:55 AM) (01/27/18 5:13 AM) (01/25/18 6:52 AM) RDW [11.5-14.5 %] 15.9 % 15.9 % 15.9 % *HI* *HI* *HI* (01/29/18 5:55 AM) (01/27/18 5:13 AM) (01/25/18 6:52 AM) MPV [7.4-10.4 fL] 10.2 fL 10.0 fL 9.6 fL (01/29/18 5:55 AM) (01/27/18 5:13 AM) (01/25/18 6:52 AM) Platelet [133-450 129 K/CMM 92 K/CMM 89 K/CMM K/CMM] *LOW* *LOW* *LOW* (01/29/18 5:55 AM) (01/27/18 5:13 AM) (01/25/18 6:52 AM) Segs [45.0-75.0 %] 66.8 % 57.6 % 61.1 % (01/29/18 5:55 AM) (01/27/18 5:13 AM) (01/25/18 6:52 AM) Bands [0.0-11.0 %] 14.0 % *HI* (01/21/18 1:32 PM) Lymphocytes 11.8 % 15.2 % 14.9 % [20.0-40.0 %] *LOW* *LOW* *LOW* (01/29/18 5:55 AM) (01/27/18 5:13 AM) (01/25/18 6:52 AM) Monocytes [2.0-12.0 12.3 % 13.6 % 11.0 % %] *HI* *HI* (01/25/18 6:52 AM) (01/29/18 5:55 AM) (01/27/18 5:13 AM) Eosinophils [0.0-4.0 8.1 % 12.3 % 11.9 % %] *HI* *HI* *HI* (01/29/18 5:55 AM) (01/27/18 5:13 AM) (01/25/18 6:52 AM) Basophils [0.0-1.0 1.0 % 1.3 % 1.1 % %] (01/29/18 5:55 AM) *HI* *HI* (01/27/18 5:13 AM) (01/25/18 6:52 AM) Segs-Bands # 9.8 K/CMM 6.3 K/CMM 6.9 K/CMM [1.5-8.1 K/CMM] *HI* (01/27/18 5:13 AM) (01/25/18 6:52 AM) (01/29/18 5:55 AM) Lymphocytes # 1.7 K/CMM 1.7 K/CMM 1.7 K/CMM [1.0-5.5 K/CMM] (01/29/18 5:55 AM) (01/27/18 5:13 AM) (01/25/18 6:52 AM) Monocytes # [0.0-0.8 1.8 K/CMM 1.5 K/CMM 1.2 K/CMM K/CMM] *HI* *HI* *HI* (01/29/18 5:55 AM) (01/27/18 5:13 AM) (01/25/18 6:52 AM) Eosinophils # 1.2 K/CMM 1.4 K/CMM 1.3 K/CMM [0.0-0.5 K/CMM] *HI* *HI* *HI* (01/29/18 5:55 AM) (01/27/18 5:13 AM) (01/25/18 6:52 AM) Basophils # [0.0-0.2 0.1 K/CMM 0.1 K/CMM 0.1 K/CMM K/CMM] (01/29/18 5:55 AM) (01/27/18 5:13 AM) (01/25/18 6:52 AM) RBC Morph Normal Normal Normal (01/25/18 6:52 AM) (01/21/18 1:32 PM) (01/08/18 4:02 AM) Plt Morph Normal Normal Normal (01/25/18 6:52 AM) (01/21/18 1:32 PM) (01/08/18 4:02 AM) Sed Rate [0-15 81 mm/hr mm/hr] *HI* (01/19/18 1:38 PM) Retic Auto [0.5-1.5 0.7 % %] (01/21/18 5:12 AM) PT [12.0-14.7 13.9 seconds 14.3 seconds seconds] (01/08/18 5:14 PM) (01/02/18 1:51 AM) INR [0.85-1.17] 1.07 1.11 (01/08/18 5:14 PM) (01/02/18 1:51 AM) Fibrinogen Lvl 404 mg/dL [230-510 mg/dL] (01/21/18 5:12 AM) PTT [22.9-35.8 33.7 seconds seconds] (01/02/18 1:51 AM) Heparin Ab(GARRISON) Negative 1 [Negative] (01/20/18 3:50 PM) Pat Od Value .209 *NA* (01/20/18 3:50 PM) Pos CO Value .400 *NA* (01/20/18 3:50 PM) 1Result Comment: This assay detects heparin antibodies of IgG isotype. Antibodies of other isotypes have been reported to cause heparin-induced thrombocytopenia. Therefore, if there is a strong clinical suspicion of HIT, additional study with a serotonin release assay is recommented. Microbiology Reports TEST: Culture: Anaerobic STATUS: Auth (Verified) BODY SITE: Left Foot SOURCE: Wound, Non Surgical COLLECTED DATE/TIME: 01/04/18 9:44 AM FINAL REPORT No Anaerobes Isolated TEST: Culture: Wound/Abscess w/Gram Stain STATUS: Auth (Verified) BODY SITE: Left Foot SOURCE: Wound, Non Surgical COLLECTED DATE/TIME: 01/04/18 9:44 AM FINAL REPORT Few Enterobacter cloacae Few Acinetobacter baumannii Refer To Culture # [id number] collected 01-03-18 For Identification And Susceptibility Results STAIN REPORT Rare WBC's No Organisms Seen TEST: Culture: Anaerobic STATUS: Auth (Verified) BODY SITE: Right Foot SOURCE: Wound, Non Surgical COLLECTED DATE/TIME: 01/04/18 9:39 AM FINAL REPORT No Anaerobes Isolated TEST: Culture: Wound/Abscess w/Gram Stain STATUS: Auth (Verified) BODY SITE: Right Foot SOURCE: Wound, Non Surgical COLLECTED DATE/TIME: 01/04/18 9:39 AM FINAL REPORT Many Enterobacter cloacae Many Acinetobacter baumannii Refer To Culture # [id number] collected 01-03-18 For Identification And Susceptibility Results STAIN REPORT No Wbc'S Or Organisms Seen TEST: Culture: Wound/Abscess w/Gram Stain STATUS: Auth (Verified) BODY SITE: Right Foot SOURCE: Wound, Non Surgical COLLECTED DATE/TIME: 01/03/18 8:53 PM FINAL REPORT Rare Enterobacter cloacae Rare Acinetobacter baumannii Refer To Culture # [id number] collected: 01/03/2018 For Susceptibility Results . Rare Vancomycin Resistant Enterococcus Few Staphylococcus Species, Not S. aureus STAIN REPORT No Wbc'S Or Organisms Seen ORGANISM:Vancomycin Resistant Enterococcus TEST: Culture: Wound/Abscess w/Gram Stain STATUS: Auth (Verified) BODY SITE: Left Foot SOURCE: Wound, Non Surgical COLLECTED DATE/TIME: 01/03/18 8:53 PM FINAL REPORT Many Acinetobacter baumannii , Multi-drug Resistant Organism Moderate Enterobacter cloacae , Multi-drug Resistant Organism STAIN REPORT No Wbc'S Or Organisms Seen ORGANISM:Acinetobacter baumannii ORGANISM:Enterobacter cloacae Immunizations No data available for this section Procedures Procedure Date Related Diagnosis Body Site Status Insertion of renal artery stent1 Completed Partial excision of kidney Completed 1left neck Social History Social History Type Response Substance Abuse Use: None. Alcohol Current, Type Beer. Last use: yesterday.1 Smoking Status Never smoker; Exposure to Tobacco Smoke None; Cigarette Smoking Last 365 Days No; Reg Smoking Cessation Counseling No entered on: 01/02/18 14 beers a week Assessment and Plan Extracted from: Title: Clinical Document Author: Ludwig Jefferson MD Date: 01/29/18 Psychiatry Progress Note. LUDWIG JEFFERSON M.D. Board Certified in Adult and Geriatric Psychiatry. Patient seen, Events noted. SUBJECTIVE : Feels better OBJECTIVE : He is alert,awake, calm and cooperative, he denies s.e of meds. He is not agitated or combative. Allergies: NKDA Labs (Last four charted values) WBC H 14.7(RAYMUNDO 25)H 11.0(RAYMUNDO 23)H 11.2(RAYMUNDO 21)H 13.7(RAYMUNDO 20) Hgb L 9.3(RAYMUNDO 25)L 9.2(RAYMUNDO 23)L 9.1(RAYMUNDO 21)L 9.4(RAYMUNDO 20) Hct L 28.7(RAYMUNDO 25)L 27.5(RAYMUNDO 23)L 27.7(RAYMUNDO 21)L 28.5(RAYMUNDO 20) Plt L 129(RAYMUNDO 25)L 92(RAYMUNDO 23)L 89(RAYMUNDO 21)L 82(RAYMUNDO 20) Na L 132(RAYMUNDO 25)135(RAYMUNDO 21)142(RAYMUNDO 20)140(RAYMUNDO 19) K 3.7(RAYMUNDO 25)L 3.3(RAYMUNDO 21)C 3.0(RAYMUNDO 20)3.6(RAYMUNDO 19) CO2 28(RAYMUNDO 25)30(RAYMUNDO 21)30(RAYMUNDO 20)27(RAYMUNDO 19) Cl 97(RAYMUNDO 25)100(RAYMUNDO 21)104(RAYMUNDO 20)105(RAYMUNDO 19) Cr H 3.88(RAYMUNDO 25)H 2.44(RAYMUNDO 21)1.35(RAYMUNDO 20)H 2.15(RAYMUNDO 19) BUN 19(RAYMUNDO 25)L 5(RAYMUNDO 21)L 2(RAYMUNDO 20)L 5(RAYMUNDO 19) Glucose Random H 101(RAYMUNDO 25)87(JAN 25)87(JAN 24)98(JAN 23) Mg 1.9(JAN 29)1.9(JAN 24)L 1.7(JAN 18)1.9(JAN 19) Phos 3.8(JAN 29)C 1.3(JAN 24)L 1.6(JAN 23)4.3(JAN 19) Ca H 11.5(JAN 29)10.4(JAN 25)9.4(JAN 24)9.5(JAN 23) PT 13.9(JAN 08)14.3(JANUARY 02) INR 1.07(JAN 08)1.11(JANUARY 02) PTT 33.7(JANUARY 02) Troponin <0.02(JAN 15)0.02(JAN 14)<0.02(JANUARY 02)<0.02(JANUARY 02) CK MB 1.9(JAN 14)H 5.0(JANUARY 02)H 4.9(JANUARY 02) Total CK 57(JAN 15)77(JAN 14)58(JANUARY 02)54(JANUARY 02) MENTAL STATUS EXAM: He is alert, awake, cooperative, mood better, 0 x 3. ASSESSMENT: Delirium due to multiple etiologies, likely causes infectious/metabolic. IMPROVING. PLAN: He is doing better, making progress. OK to d/c from psychiatric stand point N
--- OUTSIDE RECORDS SUMMARY | 2019-02-28 06:12 | XMS REPORT | Summary of Care ---
Author Author [facility] Organization [facility] Address Unknown Phone Unavailable Encounter GRACE Ramos(RADHA) [id number] Date(s): 02/02/18 - 02/09/18 [facility] [address] [place] [address]- Discharge Disposition: Usp Facility Attending Physician: Nikky Fernandez MD Admitting Physician: Nikky Fernandez MD Vital Signs 1 2 3 Most recent to oldest [Reference Range]: 175.26 cm (02/02/18 6:04 PM) Height 97.5 DegF (02/09/18 7:23 PM) 98.8 DegF (02/09/18 5:05 PM) 98.0 DegF (02/09/18 3:16 PM) Temperature Oral [96.4-99.1 DegF] 165/75 mmHg *HI* (02/09/18 8:00 PM) 176/70 mmHg *HI* (02/09/18 7:23 PM) 172/70 mmHg *HI* (02/09/18 5:05 PM) Blood Pressure [90-140/60-90 mmHg] 18 BRMIN (02/09/18 8:00 PM) 18 BRMIN (02/09/18 7:23 PM) 18 BRMIN (02/09/18 5:05 PM) Respiratory Rate [14-20 BRMIN] 70 bpm (02/09/18 8:00 PM) 75 bpm (02/09/18 7:23 PM) 68 bpm (02/09/18 5:05 PM) Peripheral Pulse Rate [60-100 bpm] 58.267 kg (02/02/18 6:04 PM) Weight 18.97 m2 (02/02/18 6:04 PM) Body Mass Index Problem List Condition Effective [...] Substance Reaction Severity Status NKDA Active Medications *RN* - Restore Hydrogel in CPD *RN* - Restore Hydrogel in CPD, attn, Drug form: MISC, Route: MISC, QSHIFT, 11/22 0:00:00 CDT, Duration: 30 day, Stop date: 03/08/18 16:00:00 CDT Start Date: 02/07/18 Stop Date: 02/08/18 Status: Discontinued acetaminophen 650 mg, 2 tab, Route: PO, Drug form: TAB, Q4H, Dosing Weight 58.267, kg, PRN Roger n 1-3/Temp > 100.4 F, Start date: 02/02/18 19:52:00 CDT, Duration: 30 day, Stop date: 03/04/18 19:51:00 CDT Notes: Do not exceed 4 gm/day. (Same as: Tylenol) Start Date: 02/02/18 Stop Date: 02/09/18 Status: Discontinued acetaminophen-hydrocodone 325 mg-5 mg oral tablet 1 tab, Route: PO, Drug Form: TAB, Dosing Weight 58.267, kg, Q4H, PRN Pain Score 4-6, Start date: 02/02/18 19:52:00 CDT, Duration: 30 day, Stop date: 03/04/18 19 :51:00 CDT Notes: (Same as: [place] 325/5) Do not exceed 4gm/day of acetaminophen. Start Date: 02/02/18 Stop Date: 02/09/18 Status: Discontinued Amikacin Pharmacy Dosing 250 mg, Route: IV, Dosing Weight 58.267, kg, Q-M-W-F, Start date: 02/05/18 9:00: 00 CDT, Duration: 14 day, Stop date: 02/16/18 9:00:00 CDT, Pharmacy to dose Start Date: 02/05/18 Stop Date: 02/03/18 Status: Deleted Amikin + Sodium Chloride 0.9% IV 100 mL 450 mg, 9 mL, Route: IV, Drug form: INJ, ONCE, Start date: 02/03/18 17:00:00 CDT , Stop date: 02/03/18 17:00:00 CDT Notes: TIME CRITICAL MEDICATION(Same as: Amikin)For adult patients only: Round t o nearest 50 mg per Medical Staff approval Start Date: 02/03/18 Stop Date: 02/03/18 Status: Completed Amikin + Sodium Chloride 0.9% IV 100 mL 300 mg, 1.2 mL, Route: IVPB, Drug form: INJ, Q-M-W-F, Start date: 02/05/18 20:00 :00 CDT, Duration: 30 day, Stop date: 03/05/18 17:00:00 CDT Notes: TIME CRITICAL MEDICATION(Same as: Amikin)For adult patients only: Round t o nearest 50 mg per Medical Staff approval MEDICATION WASTE Product Size : 1000 mgProduct Wasted: ___ mg Start Date: 02/05/18 Stop Date: 02/09/18 Status: Discontinued Aranesp 100 microgram, Route: SUB-Q, Drug form: SOLN, Q7D, Dosing Weight 58.267, kg, Sta rt date: 02/03/18 12:00:00 CDT, Duration: 30 day, Stop date: 03/03/18 9:00:00 CD T Start Date: 02/03/18 Stop Date: 02/03/18 Status: Deleted aspirin 81 mg tablet, enteric coated 81 mg, 1 tab, Route: PO, Drug form: ECTAB, Daily, Dosing Weight 58.267, kg, Star t date: 02/04/18 14:30:00 CDT, Duration: 30 day, Stop date: 03/06/18 9:00:00 CDT Notes: Do not crush or chew.(Same As: Ecotrin) Start Date: 02/04/18 Stop Date: 02/09/18 Status: Discontinued atorvastatin 40 mg, 1 tab, Route: PO, Drug form: TAB, Bedtime, Dosing Weight 58.267, kg, Star t date: 02/04/18 21:00:00 CDT, Duration: 30 day, Stop date: 03/05/18 21:00:00 CD T Notes: (Same as: Lipitor) Start Date: 02/04/18 Stop Date: 02/09/18 Status: Discontinued calcium gluconate + Sodium Chloride 0.9% IV 120 mL 3 gm, 30 mL, Route: IVPB, PRN, Dosing Weight 58.267, kg, PRN Abnormal Lab Result , For NON-ICU Patients Only., Start date: 02/05/18 18:19:00 CDT, Duration: 30 da y, Stop date: 03/07/18 18:18:00 CDT Notes: WASTE: F/P - Sink; E - Municipal Trash Bin Start Date: 02/05/18 Stop Date: 02/09/18 Status: Discontinued calcium gluconate + Sodium Chloride 0.9% IV 80 mL 2 gm, 20 mL, Route: IVPB, PRN, Dosing Weight 58.267, kg, PRN Abnormal Lab Result , For NON-ICU Patients Only., Start date: 02/05/18 18:19:00 CDT, Duration: 30 da y, Stop date: 03/07/18 18:18:00 CDT Notes: WASTE: F/P - Sink; E - Municipal Trash Bin Start Date: 02/05/18 Stop Date: 02/09/18 Status: Discontinued epoetin ruddy 10,000 unit, 1 mL, Route: SUB-Q, Drug form: INJ, Q-M-W-F, Start date: 02/05/18 1 7:00:00 CDT, Duration: 30 day, Stop date: 03/05/18 17:00:00 CDT Notes: (Same as: Procrit) epoetin ruddy 77610 unit/1 ml VL.For dialysis use only. (Procrit)WASTE: F/P - Red; E -Red MEDICATION WASTE Product Size: 74094 unitProduct Wasted: ___ unit Start Date: 02/05/18 Stop Date: 02/09/18 Status: Discontinued heparin 5000 units/mL injectable solution 5,000 unit, 1 mL, Route: SUB-Q, Drug form: INJ, Q8Hnow, Dosing Weight 58.267, kg , Start date: 02/07/18 21:00:00 CDT, Duration: 30 day, Stop date: 03/09/18 13:00 :00 CDT Notes: porcine heparin Start Date: 02/07/18 Stop Date: 02/09/18 Status: Discontinued hydrALAZINE 10 mg, 0.5 mL, Route: IV, Drug form: INJ, Q4H, Dosing Weight 58.267, kg, PRN Hyp ertension, Start date: 02/04/18 18:29:00 CDT, Duration: 30 day, Stop date: 03/06 18:28:00 CDT Notes: (Same as: Apresoline)Push over 5 minutes Start Date: 02/04/18 Stop Date: 02/09/18 Status: Discontinued hydrALAZINE 20 mg, 1 mL, Route: IV, Drug form: INJ, ONCE, Dosing Weight 58.267, kg, Start da te: 02/07/18 2:46:00 CDT, Stop date: 02/07/18 2:46:00 CDT Notes: (Same as: Apresoline)Push over 5 minutes Start Date: 02/07/18 Stop Date: 02/07/18 Status: Completed hydrALAZINE 10 mg, 0.5 mL, Route: IVP, Drug form: INJ, ONCE, Dosing Weight 58.267, kg, Start date: 02/04/18 6:22:00 CDT, Stop date: 02/04/18 6:22:00 CDT Notes: (Same as: Apresoline)Push over 5 minutes Start Date: 02/04/18 Stop Date: 02/04/18 Status: Completed hydrALAZINE 10 mg, 0.5 mL, Route: IVP, Drug form: INJ, Q4H, Dosing Weight 58.267, kg, PRN El evated BP, Start date: 02/04/18 0:26:00 CDT, Duration: 30 day, Stop date: 0:25:00 CDT Notes: (Same as: Apresoline)Push over 5 minutes Start Date: 02/04/18 Stop Date: 02/04/18 Status: Voided With Results hydrALAZINE 50 mg oral tablet 50 mg, 1 tab, Route: PO, Drug form: TAB, TID, Dosing Weight 58.267, kg, Start da te: 02/04/18 17:00:00 CDT, Duration: 30 day, Stop date: 03/06/18 13:00:00 CDT Notes: (Same as: Apresoline) May interfere w/enteral feedings Take With Food Start Date: 02/04/18 Stop Date: 02/07/18 Status: Discontinued hydrALAZINE 50 mg oral tablet 75 mg=1.5 tab, PO, TID, 0 Refill(s) Start Date: 02/09/18 Status: Ordered hydrALAZINE 50 mg oral tablet 75 mg, 1.5 tab, Route: PO, Drug form: TAB, TID, Dosing Weight 58.267, kg, Start date: 02/08/18 9:00:00 CDT, Duration: 30 day, Stop date: 03/09/18 17:00:00 CDT Notes: (Same as: Apresoline) May interfere w/enteral feedings Take With Food Start Date: 02/08/18 Stop Date: 02/09/18 Status: Discontinued Iodosorb 0.9% topical gel 1 appl, Route: TOP, Daily, Drug form: GEL, Start date: 02/05/18 9:00:00 CDT, Dur ation: 30 day, Stop date: 03/06/18 9:00:00 CDT Notes: Same as; IodosorbFOR EXTERNAL USE ONLY Non-Formulary Drug Start Date: 02/05/18 Stop Date: 02/09/18 Status: Discontinued labetalol 10 mg, 2 mL, Route: IV, Drug form: INJ, ONCE, Dosing Weight 58.267, kg, Start da te: 02/07/18 5:09:00 CDT, Stop date: 02/07/18 5:09:00 CDT Notes: (Same as: Normodyne, Trandate)Push over 2 minutes Give bolus over 2-3 mi nutes. Start Date: 02/07/18 Stop Date: 02/07/18 Status: Completed lidocaine 1% 5 mL, Route: IV, Drug Form: INJ, Dosing Weight 58.267, kg, ONCE, Start date: 01/22 17:53:00 CDT, Stop date: 02/09/18 17:53:00 CDT Notes: Preservative free. (Same as: Xylocaine MPF) Start Date: 02/09/18 Stop Date: 02/09/18 Status: Deleted lidocaine 1% 2 mL, Route: INTRADERM, Drug Form: INJ, Dosing Weight 58.267, kg, ONCE, Start da te: 02/09/18 16:08:00 CDT, Stop date: 02/09/18 16:08:00 CDT Notes: Preservative free. (Same as: Xylocaine MPF) Start Date: 02/09/18 Stop Date: 02/09/18 Status: Deleted lidocaine 1% 5 mL, Route: IV, Drug Form: INJ, Dosing Weight 58.267, kg, ONCE, Start date: 01/22 18:34:00 CDT, Stop date: 02/09/18 18:34:00 CDT Notes: Preservative free. (Same as: Xylocaine MPF) Start Date: 02/09/18 Stop Date: 02/09/18 Status: Completed lidocaine 2% 200 mg, 10 mL, Route: IV, Drug Form: INJ, Dosing Weight 58.267, kg, ONCE, Start date: 02/09/18 17:28:00 CDT, Stop date: 02/09/18 17:28:00 CDT Notes: Syringe (Same as: Xylocaine) Start Date: 02/09/18 Stop Date: 02/09/18 Status: Deleted linezolid 600 mg, 300 mL, Route: IVPB, Drug form: SOLN, [id number], Dosing Weight 58.267, kg, Start date: 02/03/18 15:00:00 CDT, Duration: 14 day, Stop date: 02/17/18 6:00:00 CDT, ABX Indication: Bone/Joint Infection Notes: (Same as: Zyvox) Start Date: 02/03/18 Stop Date: 02/09/18 Status: Discontinued lisinopril 20 mg, 1 tab, Route: PO, Drug form: TAB, Daily, Dosing Weight 58.267, kg, Start date: 02/04/18 14:30:00 CDT, Duration: 30 day, Stop date: 03/06/18 9:00:00 CDT Notes: (Same as: Tom Zestril) Start Date: 02/04/18 Stop Date: 02/08/18 Status: Discontinued lisinopril 10 mg, 2 tab, Route: PO, Drug form: TAB, ONCE, Dosing Weight 58.267, kg, Start d ate: 02/08/18 22:49:00 CDT, Stop date: 02/08/18 22:49:00 CDT Notes: (Same as: ivil Zestril) Start Date: 02/08/18 Stop Date: 02/08/18 Status: Completed lisinopril 30 mg, 1.5 tab, Route: PO, Drug form: TAB, Daily, Dosing Weight 58.267, kg, Star t date: 02/09/18 9:00:00 CDT, Duration: 30 day, Stop date: 03/10/18 9:00:00 CDT Notes: (Same as: ivil, Zestril) Start Date: 02/09/18 Stop Date: 02/09/18 Status: Discontinued lisinopril 20 mg oral tablet 30 mg=1.5 tab, PO, Daily, 0 Refill(s) Start Date: 02/09/18 Status: Ordered Lopressor 25 mg, 1 tab, Route: PO, Drug form: TAB, Q12H, Dosing Weight 58.267, kg, Start d ate: 02/04/18 21:00:00 CDT, Duration: 30 day, Stop date: 03/06/18 9:00:00 CDT Notes: (Same as: Lopressor) Start Date: 02/04/18 Stop Date: 02/09/18 Status: Discontinued magnesium oxide 800 mg, 2 tab, Route: PO, Drug form: TAB, PRN, Dosing Weight 58.267, kg, PRN Abn ormal Lab Result, For NON-ICU Patients Only., Start date: 02/05/18 18:19:00 CDT, Duration: 30 day, Stop date: 03/07/18 18:18:00 CDT Notes: (Same as: Mag-Ox 400)Magnesium oxide [id number] elemental magnesiumDose= ____mg magnesium oxide (___mg elemental magnesium) Start Date: 02/05/18 Stop Date: 02/09/18 Status: Discontinued magnesium sulfate 1 gm, 100 mL, Route: IVPB, Drug form: INJ, PRN, Dosing Weight 58.267, kg, PRN Ab normal Lab Result, For NON-ICU Patients Only., Start date: 02/05/18 18:19:00 CDT , Duration: 30 day, Stop date: 03/07/18 18:18:00 CDT Notes: WASTE: F/P - Sink; E - Municipal Trash Bin Start Date: 02/05/18 Stop Date: 02/09/18 Status: Discontinued magnesium sulfate 2 gm, 50 mL, Route: IVPB, Drug form: INJ, PRN, Dosing Weight 58.267, kg, PRN Abn ormal Lab Result, For NON-ICU Patients Only., Start date: 02/05/18 18:19:00 CDT, Duration: 30 day, Stop date: 03/07/18 18:18:00 CDT Notes: WASTE: F/P - Sink; E - Municipal Trash Bin Start Date: 02/05/18 Stop Date: 02/09/18 Status: Discontinued morphine Sulfate 6 mg, 3 mL, Route: PO, Drug form: SOLN, Q4H, Dosing Weight 58.267, kg, PRN Pain Score 7-10, Start date: 02/02/18 19:52:00 CDT, Stop date: 03/04/18 19:51:00 CDT Notes: (Same as:MORPhine Sulfate) Start Date: 02/02/18 Stop Date: 02/09/18 Status: Discontinued NIFEdipine 90 mg oral tablet, extended release 90 mg, 1 tab, Route: PO, Drug form: ERTAB, Daily, Dosing Weight 58.267, kg, Star t date: 02/05/18 9:00:00 CDT, Duration: 30 day, Stop date: 03/06/18 9:00:00 CDT Notes: (Same as: Adalat CC,Procardia XL)"Do Not Crush" "Avoid grapefruit and gr apefruit juice" Start Date: 02/05/18 Stop Date: 02/09/18 Status: Discontinued Nitrostat 0.4 mg sublingual tablet 0.4 mg, 1 tab, Route: SL, Drug form: TAB, Q5Min, Dosing Weight 58.267, kg, PRN C hest Pain, Start date: 02/04/18 13:58:00 CDT, Duration: 30 day, Stop date: 03/06 13:57:00 CDT Notes: (Same as:Nitroquick, Nitrostat)"Do Not Crush" Sublingual tablet Start Date: 02/04/18 Stop Date: 02/09/18 Status: Discontinued ondansetron 4 mg, 2 mL, Route: IVP, Drug form: INJ, Q6H, Dosing Weight 58.267, kg, PRN Nause a & Vomiting, Start date: 02/02/18 19:52:00 CDT, Duration: 30 day, Stop date: 03/04/18 19:51:00 CDT Notes: (Same as: Abena) MEDICATION WASTE Product Size: 4 mgProduct Was wero: ___ mg Start Date: 02/02/18 Stop Date: 02/09/18 Status: Discontinued potassium chloride 20 mEq, 1 tab, Route: PO, Drug form: ERTAB, PRN, Dosing Weight 58.267, kg, PRN A bnormal Lab Result, For NON-ICU Patients Only, Start date: 02/05/18 18:19:00 CDT , Duration: 30 day, Stop date: 03/07/18 18:18:00 CDT Notes: (Same as: K-Dur 20)"Do Not Crush"For patients unable to swallow tablet, d issolve in one half glass of water. Allow about 2 minutes for the tablets to dis integrate. Stir before giving to prepare slurry and administer.Please exclude Pa tients with feeding tube less than 14 Spanish (Dobhoff, J-tube etc) and pediat serene and patients. With food and full glass of water Start Date: 02/05/18 Stop Date: 02/09/18 Status: Discontinued potassium chloride 20 mEq, 15 mL, Route: NJ, Drug form: LIQ, PRN, Dosing Weight 58.267, kg, PRN Abn ormal Lab Result, For NON-ICU Patients Only, Start date: 02/05/18 18:19:00 CDT, Duration: 30 day, Stop date: 03/07/18 18:18:00 CDT Notes: (Same as: Potassium Chloride) Start Date: 02/05/18 Stop Date: 02/09/18 Status: Discontinued potassium chloride + Sodium Chloride 0.9% IV 95 mL 10 mEq, 5 mL, Route: IVPB, PRN, Dosing Weight 58.267, kg, PRN Abnormal Lab Resul t, For NON-ICU Patients Only, Start date: 02/05/18 18:19:00 CDT, Duration: 30 da y, Stop date: 03/07/18 18:18:00 CDT Notes: MUST be Diluted before use(Same as: KCl) MEDICATION WASTE Product Size: 40 mEqProduct Wasted: ___ mEq Start Date: 02/05/18 Stop Date: 02/09/18 Status: Discontinued potassium phosphate + Sodium Chloride 0.9% IV 250 mL 15 mmol, 5 mL, Route: IVPB, PRN, Dosing Weight 58.267, kg, PRN Abnormal Lab Resu lt, For NON-ICU Patients Only., Start date: 02/05/18 18:19:00 CDT, Duration: 30 day, Stop date: 03/07/18 18:18:00 CDT Notes: (Same as: K Phosphate.) 1 mMol phoshate has 1.47 mEq potassium Infuse o tabatha 4 hours Start Date: 02/05/18 Stop Date: 02/09/18 Status: Discontinued potassium phosphate + Sodium Chloride 0.9% IV 250 mL 30 mmol, 10 mL, Route: IVPB, PRN, Dosing Weight 58.267, kg, PRN Abnormal Lab Res ult, For NON-ICU Patients Only., Start date: 02/05/18 18:19:00 CDT, Duration: 30 day, Stop date: 03/07/18 18:18:00 CDT Notes: (Same as: K Phosphate.) 1 mMol phoshate has 1.47 mEq potassium Infuse o tabatha 4 hours Start Date: 02/05/18 Stop Date: 02/09/18 Status: Discontinued potassium phosphate-sodium phosphate 250 mg-280 mg-160 mg oral powder for recons titution 2 pkt, Route: PO, Drug Form: PDR/REC, Dosing Weight 58.267, kg, PRN, PRN Abnorma l Lab Result, For NON-ICU Patients Only, Start date: 02/05/18 18:19:00 CDT, Dura tion: 30 day, Stop date: 03/07/18 18:18:00 CDT Notes: (Same as: Phos-NaK) Each 1.5 gm pkt has 250mg phosphorous. Mix w/2.5oz w ater and stir. Start Date: 02/05/18 Stop Date: 02/09/18 Status: Discontinued Restore Hydrogel topical gel 1 appl, Route: TOP, Dosing Weight 58.267, kg, BID, Start date: 02/06/18 17:00:00 CDT, Duration: 30 day, Stop date: 03/08/18 9:00:00 CDT Start Date: 02/06/18 Stop Date: 02/08/18 Status: Discontinued sodium phosphate + Dextrose 5% in Water IV 250 mL 30 mmol, 10 mL, Route: IVPB, PRN, Dosing Weight 58.267, kg, PRN Abnormal Lab Res ult, For NON-ICU Patients Only., Start date: 02/05/18 18:19:00 CDT, Duration: 30 day, Stop date: 03/07/18 18:18:00 CDT Start Date: 02/05/18 Stop Date: 02/09/18 Status: Discontinued sodium phosphate + Dextrose 5% in Water IV 250 mL 15 mmol, 5 mL, Route: IVPB, PRN, Dosing Weight 58.267, kg, PRN Abnormal Lab Resu lt, For NON-ICU Patients Only., Start date: 02/05/18 18:19:00 CDT, Duration: 30 day, Stop date: 03/07/18 18:18:00 CDT Start Date: 02/05/18 Stop Date: 02/09/18 Status: Discontinued Unasyn + Sodium Chloride 0.9% IV 100 mL 3 gm, Route: IVPB, [id number], Dosing Weight 58.267, kg, Start date: 02/03/18 15:00 :00 CDT, Duration: 30 day, Stop date: 03/05/18 3:00:00 CDT Notes: Dosing based on Ampicillin component (Same as: Unasyn) Start Date: 02/03/18 Stop Date: 02/09/18 Status: Discontinued vancomycin + Dextrose 5% in Water IV 250 mL 1 gm, Route: IVPB, Drug form: INJ, ONCE, Start date: 02/03/18 8:00:00 CDT, Stop date: 02/03/18 8:00:00 CDT, ABX Indication: Bone/Joint Infection Notes: TIME CRITICAL MEDICATION(Same As: Vancocin)Infusion rate< 1000 mg: infuse over 1 [id number] - 1500 mg: infuse over 1.5 [id number] - 2000 mg: infuse over 2 hours> 2001 mg: infuse over 2.5 hoursFor adult patients only: Round to nearest 250 mg per Medical Staff approval MEDICATION WASTE Product Size: 1000 mgProduct Wasted: ___ mg Start Date: 02/03/18 Stop Date: 02/03/18 Status: Completed vancomycin + Sodium Chloride 0.9% IV 100 mL 500 mg, Route: IVPB, Q-M-W-F, Start date: 02/05/18 21:00:00 CDT, Duration: 30 da y, Stop date: 03/07/18 9:00:00 CDT, ABX Indication: Bone/Joint Infection Notes: TIME CRITICAL MEDICATION(Same As: Vancocin)For adult patients only: Round to nearest 250 mg per Medical Staff approval Start Date: 02/05/18 Stop Date: 02/03/18 Status: Canceled Vancomycin Pharmacy Dosing 1 ea, Route: MISC, ONCALL, Dosing Weight 58.267, kg, Start date: 02/03/18 5:00:0 0 CDT, Duration: 7 day, Stop date: 02/10/18 4:59:00 CDT, Pharmacy to dose, ABX I ndication: Bone/Joint Infection Start Date: 02/03/18 Stop Date: 02/03/18 Status: Completed Zosyn + Sodium Chloride 0.9% IV 100 mL 3.375 gm, Route: IVPB, [id number], Dosing Weight 58.267, kg, Start date: 02/03/18 5: 00:00 CDT, Stop date: 02/09/18 21:00:00 CDT, ABX Indication: Bone/Joint Infectio n Notes: (Same as: Zosyn)Dosing based on Piperacillin component MEDICATION WA COLIN Product Size: 3375 mgProduct Wasted: ___ mg Start Date: 02/03/18 Stop Date: 02/03/18 Status: Discontinued Zosyn + Sodium Chloride 0.9% IV 100 mL 3.375 gm, Route: IVPB, [id number], Dosing Weight 58.267, kg, Start date: 02/03/18 5: 30:00 CDT, Duration: 7 day, Stop date: 02/09/18 21:30:00 CDT, ABX Indication: Trey ne/Joint Infection Notes: (Same as: Zosyn)Dosing based on Piperacillin component MEDICATION WA COLIN Product Size: 3375 mgProduct Wasted: ___ mg Start Date: 02/03/18 Stop Date: 02/03/18 Status: Discontinued Results ELECTROLYTES 1 2 3 Most recent to oldest [Reference Range]: 145 mEq/L (02/09/18 5:29 AM) 141 mEq/L (02/08/18 6:42 AM) 144 mEq/L (02/07/18 8:59 AM) Sodium Lvl [135-145 mEq/L] 3.6 mEq/L (02/09/18 5:29 AM) 3.6 mEq/L (02/08/18 6:42 AM) 3.8 mEq/L (02/07/18 8:59 AM) Potassium Lvl [3.5-5.1 mEq/L] 107 mEq/L (02/09/18 5:29 AM) 106 mEq/L (02/08/18 6:42 AM) 106 mEq/L (02/07/18 8:59 AM) Chloride Lvl [95-109 mEq/L] 28 mEq/L (02/09/18 5:29 AM) 29 mEq/L (02/08/18 6:42 AM) 30 mEq/L (02/07/18 8:59 AM) CO2 [24-32 mEq/L] 13.6 mEq/L (02/09/18 5:29 AM) 9.6 mEq/L *LOW* (02/08/18 6:42 AM) 11.8 mEq/L (02/07/18 8:59 AM) AGAP [10.0-20.0 mEq/L] CHEM PANEL 1 2 3 Most recent to oldest [Reference Range]: 3.84 mg/dL *HI* (02/09/18 5:29 AM) 3.06 mg/dL *HI* (02/08/18 6:42 AM) 1.61 mg/dL *HI* (02/07/18 8:59 AM) Creatinine Lvl [0.50-1.40 mg/dL] 16 mL/min/1.73m2 1 *NA* (02/09/18 5:29 AM) 21 mL/min/1.73m2 2 *NA* (02/08/18 6:42 AM) 45 mL/min/1.73m2 3 *NA* (02/07/18 8:59 AM) eGFR 13 mg/dL (02/09/18 5:29 AM) 7 mg/dL (02/08/18 6:42 AM) 5 mg/dL *LOW* (02/07/18 8:59 AM) BUN [7-22 mg/dL] 4 *LOW* (02/02/18 8:03 PM) B/C Ratio [6-25] 88 mg/dL (02/09/18 5:29 AM) 117 mg/dL *HI* (02/08/18 6:42 AM) 84 mg/dL (02/07/18 8:59 AM) Glucose Lvl [70-99 mg/dL] 6.7 g/dL (02/02/18 8:03 PM) Total Protein [6.4-8.4 g/dL] 2.3 g/dL *LOW* (02/02/18 8:03 PM) Albumin Lvl [3.5-5.0 g/dL] 4.4 g/dL *HI* (02/02/18 8:03 PM) Globulin [2.7-4.2 g/dL] 0.5 *LOW* (02/02/18 8:03 PM) A/G Ratio [0.7-1.6] 8.2 mg/dL *LOW* (02/09/18 5:29 AM) 8.6 mg/dL (02/08/18 6:42 AM) 7.7 mg/dL *LOW* (02/07/18 8:59 AM) Calcium Lvl [8.5-10.5 mg/dL] 8 unit/L (02/02/18 8:03 PM) ALT [0-65 unit/L] 13 unit/L (02/02/18 8:03 PM) AST [0-37 unit/L] 100 unit/L (02/02/18 8:03 PM) Alk Phos [39-136 unit/L] 0.2 mg/dL (02/02/18 8:03 PM) Bili Total [0.2-1.3 mg/dL] 1Result Comment: The eGFR is calculated using [...] be mul tiplied by the estimated BMI. TOXICOLOGY 1 2 3 Most recent to oldest [Reference Range]: 10.6 ug/ml *NA* (02/09/18 8:40 AM) 4.6 ug/ml *NA* (02/07/18 8:59 AM) 11.4 ug/ml *NA* (02/05/18 6:37 AM) Amikacin Lvl IMMUNOLOGY 1 2 3 Most recent to oldest [Reference Range]: 19.1 mg/L *HI* (02/03/18 2:47 PM) CRP [<=2.9 mg/L] Negative *NA* (02/05/18 6:37 AM) Hep Bs Ag [Negative] HEMATOLOGY 1 2 3 Most recent to oldest [Reference Range]: 13.1 K/CMM *HI* (02/08/18 6:42 AM) 19.7 K/CMM *HI* (02/04/18 4:49 AM) 19.2 K/CMM *HI* (02/02/18 8:03 PM) WBC [3.7-10.4 K/CMM] 3.19 M/CMM *LOW* (02/08/18 6:42 AM) 3.21 M/CMM *LOW* (02/04/18 4:49 AM) 2.99 M/CMM *LOW* (02/02/18 8:03 PM) RBC [4.70-6.10 M/CMM] 9.1 g/dL *LOW* (02/08/18 6:42 AM) 9.1 g/dL *LOW* (02/04/18 4:49 AM) 8.6 g/dL *LOW* (02/02/18 8:03 PM) Hgb [14.0-18.0 g/dL] 28.8 % *LOW* (02/08/18 6:42 AM) 28.4 % *LOW* (02/04/18 4:49 AM) 26.7 % *LOW* (02/02/18 8:03 PM) Hct [42.0-54.0 %] 90.2 fL (02/08/18 6:42 AM) 88.4 fL (02/04/18 4:49 AM) 89.2 fL (02/02/18 8:03 PM) MCV [80.0-94.0 fL] 28.5 pg (02/08/18 6:42 AM) 28.4 pg (02/04/18 4:49 AM) 28.8 pg (02/02/18 8:03 PM) MCH [27.0-31.0 pg] 31.6 g/dL *LOW* (02/08/18 6:42 AM) 32.1 g/dL (02/04/18 4:49 AM) 32.2 g/dL (02/02/18 8:03 PM) MCHC [32.0-36.0 g/dL] 21.9 % *HI* (02/08/18 6:42 AM) 20.8 % *HI* (02/04/18 4:49 AM) 16.7 % *HI* (02/02/18 8:03 PM) RDW [11.5-14.5 %] 9.5 fL (02/08/18 6:42 AM) 9.3 fL (02/04/18 4:49 AM) 10.0 fL (02/02/18 8:03 PM) MPV [7.4-10.4 fL] 177 K/CMM (02/08/18 6:42 AM) 145 K/CMM (02/04/18 4:49 AM) 100 K/CMM *LOW* (02/02/18 8:03 PM) Platelet [133-450 K/CMM] 66.4 % (02/08/18 6:42 AM) 76.3 % *HI* (02/04/18 4:49 AM) 86.5 % *HI* (02/02/18 8:03 PM) Segs [45.0-75.0 %] 14.7 % *LOW* (02/08/18 6:42 AM) 9.6 % *LOW* (02/04/18 4:49 AM) 6.1 % *LOW* (02/02/18 8:03 PM) Lymphocytes [20.0-40.0 %] 13.3 % *HI* (02/08/18 6:42 AM) 9.0 % (02/04/18 4:49 AM) 6.9 % (02/02/18 8:03 PM) Monocytes [2.0-12.0 %] 4.6 % *HI* (02/08/18 6:42 AM) 3.9 % (02/04/18 4:49 AM) 0.1 % (02/02/18 8:03 PM) Eosinophils [0.0-4.0 %] 1.0 % (02/08/18 6:42 AM) 1.2 % *HI* (02/04/18 4:49 AM) 0.4 % (02/02/18 8:03 PM) Basophils [0.0-1.0 %] 8.7 K/CMM *HI* (02/08/18 6:42 AM) 15.0 K/CMM *HI* (02/04/18 4:49 AM) 16.6 K/CMM *HI* (02/02/18 8:03 PM) Segs-Bands # [1.5-8.1 K/CMM] 1.9 K/CMM (02/08/18 6:42 AM) 1.9 K/CMM (02/04/18 4:49 AM) 1.2 K/CMM (02/02/18 8:03 PM) Lymphocytes # [1.0-5.5 K/CMM] 1.8 K/CMM *HI* (02/08/18 6:42 AM) 1.8 K/CMM *HI* (02/04/18 4:49 AM) 1.3 K/CMM *HI* (02/02/18 8:03 PM) Monocytes # [0.0-0.8 K/CMM] 0.6 K/CMM *HI* (02/08/18 6:42 AM) 0.8 K/CMM *HI* (02/04/18 4:49 AM) Eosinophils # [0.0-0.5 K/CMM] 0.1 K/CMM (02/08/18 6:42 AM) 0.2 K/CMM (02/04/18 4:49 AM) 0.1 K/CMM (02/02/18 8:03 PM) Basophils # [0.0-0.2 K/CMM] See Note (02/04/18 4:49 AM) RBC Morph 1+ *ABN* (02/04/18 4:49 AM) Anisocyte [None Seen] Normal (02/04/18 4:49 AM) Plt Morph 68 mm/hr *HI* (02/03/18 2:47 PM) Sed Rate [0-15 mm/hr] Microbiology Reports TEST: Culture: Wound/Abscess w/Gram Stain STATUS: Auth (Verified) BODY SITE: Foot SOURCE: Wound, Non Surgical COLLECTED DATE/TIME: 02/05/18 6:36 AM FINAL REPORT No Growth STAIN REPORT No Wbc'S Or Organisms Seen Immunizations No data available for this section Procedures Procedure Date Related Diagnosis Body Site Status Insertion of renal artery stent1 Completed Partial excision of kidney Completed 1left neck Social History Social History Type Response Substance Abuse Use: None. Alcohol Past, Type Beer. Last use: yesterday.1 Smoking Status Never smoker; Exposure to Tobacco Smoke None; Cigarette Smoking Last 365 Days No; Reg Smoking Cessation Counseling No entered on: 02/02/18 14 beers a week Assessment and Plan Extracted from: Title: Clinical Document Author: Nikky Fernandez MD Date: [...] however, [facility] and this patient has been readmitted because of issues with care. -- per Dr. [facility] course: # Bilateral foot necrotic ulcers [...] recommended SNF and he was discharged to [facility]. # ESRD, anemia of chronic disease - [...] PCP within 1-2 weeks Nikky Fernandez MD [facility] Hospitalist Extracted from: Title: Progress Note * Author: Nikky Fernandez MD [...] ppx: heparin Code: full Nikky Fernandez MD [facility] Hospitalist Extracted from: Title: Podiatry Consult Author: Reyna Palomo DPM Date: [...] Consult Dr. Alvarez will resume care on Monday
--- OUTSIDE RECORDS SUMMARY | 2019-02-28 06:12 | XMS REPORT | Summary of Care ---
Author Author [facility] Organization [facility] Address Unknown Phone Unavailable Encounter GRACE Ramos(RADHA) [id number] Date(s): 12/12/17 - 12/21/17 [facility] [address] [place] [address]- Discharge Disposition: Home or Self Care Attending Physician: Zachary Greenwood MD Admitting Physician: Zachary Greenwood MD Vital Signs 1 2 3 Most recent to oldest [Reference Range]: 177.8 cm (12/13/17 5:44 AM) 177.8 cm (12/12/17 2:14 PM) Height 97.7 DegF (12/21/17 4:30 PM) 98.6 DegF (12/21/17 11:45 AM) 98.4 DegF (12/21/17 8:50 AM) Temperature Oral [96.4-99.1 DegF] 170/85 mmHg *HI* (12/21/17 4:30 PM) 172/86 mmHg *HI* (12/21/17 11:45 AM) 170/80 mmHg *HI* (12/21/17 8:50 AM) Blood Pressure [90-140/60-90 mmHg] 18 BRMIN (12/21/17 4:30 PM) 18 BRMIN (12/21/17 11:45 AM) 18 BRMIN (12/21/17 8:50 AM) Respiratory Rate [14-20 BRMIN] 70 bpm (12/21/17 4:30 PM) 69 bpm (12/21/17 11:45 AM) 65 bpm (12/21/17 8:50 AM) Peripheral Pulse Rate [60-100 bpm] 59.659 kg (12/13/17 5:44 AM) 61.364 kg (12/12/17 2:14 PM) Weight 18.87 m2 (12/13/17 5:44 AM) 19.41 m2 (12/12/17 2:14 PM) Body Mass Index Problem List Condition Effective Dates Status Health Status Informant Diabetes(Confirmed) Active H/O: Resolved stroke(Confirmed) Hypertension(Confirm Active ed) Cancer of Active kidney(Confirmed) Primary cancer of Active skin of chest(Confirmed) Allergies, Adverse Reactions, Alerts Substance Reaction Severity Status NKDA Active Medications acetaminophen-hydrocodone 325 mg-10 mg oral tablet 2 tab, Route: PO, Drug Form: TAB, Dosing Weight 59.659, kg, Q4H, PRN Pain Score 7-10, Start date: 12/15/17 11:31:00 CDT, Duration: 30 day, Stop date: 01/14/18 1 1:30:00 CDT Notes: Do not exceed 4gm/day of acetaminophen. (Same as: [place] 325/10) Start Date: 12/15/17 Stop Date: 12/21/17 Status: Discontinued acetaminophen-hydrocodone 325 mg-5 mg oral tablet 1 tab, Route: PO, Drug Form: TAB, Dosing Weight 59.659, kg, Q4H, PRN Pain Score 4-6, Start date: 12/15/17 11:31:00 CDT, Duration: 30 day, Stop date: 01/14/18 11 :30:00 CDT Notes: (Same as: [place] 325/5) Do not exceed 4gm/day of acetaminophen. Start Date: 12/15/17 Stop Date: 12/21/17 Status: Discontinued albuterol 0.083% inhalation solution 20 mg, Route: NEB, ONCE, Dosing Weight 61.364, kg, Priority: STAT, Start date: 0 12/12/17 19:06:00 CDT, Stop date: 12/12/17 19:06:00 CDT Start Date: 12/12/17 Stop Date: 12/12/17 Status: Completed albuterol-ipratropium 2.5-0.5 mg inhalation solution 3 mL, Route: NEB, Dosing Weight 59.659, kg, ONCE, STAT, Start date: 12/18/17 15: 06:00 CDT, Stop date: 12/18/17 15:06:00 CDT Start Date: 12/18/17 Stop Date: 12/18/17 Status: Discontinued ANES fentaNYL 25 microgram, Route: IVP, Q5Min, Dosing Weight 59.659, kg, PRN Pain Score 4-6, P riority: Routine, Start date: 12/15/17 11:50:00 CDT, Duration: 4 doses or times, Stop date: Limited # of times Start Date: 12/15/17 Stop Date: 12/15/17 Status: Discontinued ANES flumazenil 0.2 mg, Route: IVP, PRN, Dosing Weight 59.659, kg, PRN Benzodiazepine Reversal, Initial dose, Start date: 12/15/17 11:50:00 CDT, Duration: 30 day, Stop date: 11:49:00 CDT Start Date: 12/15/17 Stop Date: 12/15/17 Status: Discontinued ANES metoprolol 1 mg, Route: IVP, Q5Min, Dosing Weight 59.659, kg, PRN Other -See Comment, Start date: 12/15/17 11:50:00 CDT, Duration: 5 doses or times, Stop date: Limited # of times Start Date: 12/15/17 Stop Date: 12/15/17 Status: Discontinued ANES naloxone 0.4 mg, Route: IVP, Q2MIN, Dosing Weight 59.659, kg, PRN Narcotic Reversal, Star t date: 12/15/17 11:50:00 CDT, Duration: 8 doses or times, Stop date: Limited # of times Start Date: 12/15/17 Stop Date: 12/15/17 Status: Discontinued ANES ondansetron 4 mg, Route: IVP, ONCE, Dosing Weight 59.659, kg, PRN Nausea & Vomiting, Start date: 12/15/17 11:50:00 CDT Start Date: 12/15/17 Stop Date: 12/15/17 Status: Completed ANES oxyCODONE 5 mg, Route: PO, Drug form: TAB, Q4H, Dosing Weight 59.659, kg, PRN Pain Score 4 -6, Start date: 12/15/17 11:50:00 CDT, Duration: 30 day, Stop date: 01/14/18 11: 49:00 CDT Start Date: 12/15/17 Stop Date: 12/15/17 Status: Discontinued calcium gluconate + Sodium Chloride 0.9% IV 50 mL 1 gm, 10 mL, Route: IVPB, ONCE, Dosing Weight 61.364, kg, Priority: STAT, Start date: 12/12/17 19:06:00 CDT, Stop date: 12/12/17 19:06:00 CDT Notes: WASTE: F/P - Sink; E - Municipal Trash Bin Start Date: 12/12/17 Stop Date: 12/12/17 Status: Completed Cathflo Activase 2 mg injection 2 mg, 2 mL, Route: INJ, Drug form: INJ, ONCE, Dosing Weight 59.659, kg, Start da te: 12/21/17 9:30:00 CDT, Stop date: 12/21/17 9:30:00 CDT, Occluded CVAD >/=7 [place] Notes: "Syringe for catheter clearance or interventional radiology use.Reconstit grindstone each vial of Cathflo Activase with 2.2 ml Sterile Water resulting in a 1 mg/ ml solution. (Same as: Activase) MEDICATION WASTE Product Size: 2 mgProd uct Wasted: ___ mg Start Date: 12/21/17 Stop Date: 12/21/17 Status: Completed Cathflo Activase 2 mg injection 2 mg, 2 mL, Route: DIALYSIS, Drug form: INJ, ONCE, Dosing Weight 59.659, kg, Sta rt date: 12/21/17 9:23:00 CDT, Stop date: 12/21/17 9:23:00 CDT Notes: "Syringe for catheter clearance or interventional radiology use.Reconstit grindstone each vial of Cathflo Activase with 2.2 ml Sterile Water resulting in a 1 mg/ ml solution. (Same as: Activase) MEDICATION WASTE Product Size: 2 mgProd uct Wasted: ___ mg Start Date: 12/21/17 Stop Date: 12/21/17 Status: Completed cefepime + Sodium Chloride 0.9% IV 100 mL 1 gm, Route: IVPB, [id number], Dosing Weight 59.659, kg, (CrCl 10 - 29 ml/min), Sta rt date: 12/13/17 23:00:00 CDT, Duration: 10 day, Stop date: 12/22/17 23:00:00 C DT, ABX Indication: Bone/Joint Infection Notes: (Same As: Maxipime) MEDICATION WASTE Product Size: 1000 mgProduc t Wasted: ___ mg Start Date: 12/13/17 Stop Date: 12/21/17 Status: Discontinued clindamycin 900 mg, 50 mL, Route: IVPB, Drug form: INJ, [id number], Dosing Weight 59.659, kg, St art date: 12/13/17 23:00:00 CDT, Duration: 14 day, Stop date: 12/27/17 12:00:00 CDT, ABX Indication: Skin/Soft Tissue Infection Start Date: 12/13/17 Stop Date: 12/19/17 Status: Discontinued Dextrose 50% Syringe 50 mL, Route: IVP, Dosing Weight 59.659, kg, PRN, PRN Blood Glucose Results, Sta rt date: 12/18/17 21:14:00 CDT, Duration: 30 day, Stop date: 01/17/18 21:13:00 C DT Start Date: 12/18/17 Stop Date: 12/18/17 Status: Deleted Dextrose 50% Syringe 25 mL, Route: IVP, Dosing Weight 59.659, kg, PRN, PRN Blood Glucose Results, Sta rt date: 12/18/17 21:14:00 CDT, Duration: 30 day, Stop date: 01/17/18 21:13:00 C DT Start Date: 12/18/17 Stop Date: 12/18/17 Status: Deleted Dextrose 50% Syringe 12.5 gm, 25 mL, Route: IVP, Drug Form: INJ, Dosing Weight 61.364, kg, PRN, PRN B lood Glucose Results, Start date: 12/12/17 22:10:00 CDT, Duration: 30 day, Stop date: 01/11/18 22:09:00 CDT Start Date: 12/12/17 Stop Date: 12/21/17 Status: Discontinued Dextrose 50% Syringe 25 gm, 50 mL, Route: IVP, Drug Form: INJ, Dosing Weight 61.364, kg, PRN, PRN Blo od Glucose Results, Start date: 12/12/17 22:10:00 CDT, Duration: 30 day, Stop da te: 01/11/18 22:09:00 CDT Start Date: 12/12/17 Stop Date: 12/21/17 Status: Discontinued Dextrose 50% Syringe 25 gm, 50 mL, Route: IVP, Drug Form: INJ, Dosing Weight 61.364, kg, ONCE, STAT, Start date: 12/12/17 19:06:00 CDT, Stop date: 12/12/17 19:06:00 CDT Start Date: 12/12/17 Stop Date: 12/12/17 Status: Completed Epogen (ESRD) 10,000 unit, 1 mL, Route: IV, Drug form: INJ, Q---Sa, Dosing Weight 59.659, kg, Start date: 12/13/17 17:00:00 CDT, Stop date: 01/11/18 17:00:00 CDT Notes: (Same as: Procrit) epoetin ruddy 26956 unit/1 ml VL.For dialysis use only. (Procrit)WASTE: F/P - Red; E -Red MEDICATION WASTE Product Size: 98186 unitProduct Wasted: ___ unit Start Date: 12/13/17 Stop Date: 12/21/17 Status: Discontinued fentaNYL (ANES) Route: IV, Drug form: INJ, ONCE, Stop date: 12/15/17 11:25:00 CDT Start Date: 12/15/17 Stop Date: 12/15/17 Status: Completed fentaNYL (ANES) Route: IV, Drug form: INJ, ONCE, Stop date: 12/18/17 15:56:00 CDT Start Date: 12/18/17 Stop Date: 12/18/17 Status: Completed Flagyl 500 mg, 1 tab, Route: PO, Drug form: TAB, ABXQ8H, Dosing Weight 59.659, kg, Star t date: 12/19/17 15:00:00 CDT, Duration: 14 day, Stop date: 01/02/18 7:00:00 CDT , ABX Indication: Skin/Soft Tissue Infection Notes: (Same as: Flagyl) Take with food/ avoid alcohol Start Date: 12/19/17 Stop Date: 12/21/17 Status: Discontinued furosemide 40 mg, 4 mL, Route: IVP, Drug form: INJ, ONCE, Dosing Weight 61.364, kg, Priorit y: STAT, Start date: 12/12/17 19:06:00 CDT, Stop date: 12/12/17 19:06:00 CDT Notes: (Same as: Lasix) MEDICATION WASTE Product Size: 40 mgProduct Was wero: ___ mg Start Date: 12/12/17 Stop Date: 12/12/17 Status: Completed glucagon 1 mg, Route: IM, PRN, Dosing Weight 59.659, kg, PRN Blood Glucose Results, Start date: 12/18/17 21:14:00 CDT, Duration: 30 day, Stop date: 01/17/18 21:13:00 CDT Start Date: 12/18/17 Stop Date: 12/18/17 Status: Deleted glucagon 1 mg, Route: IM, Drug form: PDR/INJ, PRN, Dosing Weight 61.364, kg, PRN Blood Gl ucose Results, Start date: 12/12/17 22:10:00 CDT, Duration: 30 day, Stop date: 0 01/11/18 22:09:00 CDT Start Date: 12/12/17 Stop Date: 12/21/17 Status: Discontinued heparin 5,000 unit, 1 mL, Route: SUB-Q, Drug form: INJ, Q8H, Dosing Weight 61.364, kg, S tart date: 12/13/17 0:00:00 CDT, Duration: 30 day, Stop date: 01/11/18 16:00:00 CDT Notes: porcine heparin Start Date: 12/13/17 Stop Date: 12/21/17 Status: Discontinued hydrALAZINE 20 mg, 1 mL, Route: IVP, Drug form: INJ, ONCE, Dosing Weight 61.364, kg, Priorit y: STAT, Start date: 12/12/17 18:46:00 CDT, Stop date: 12/12/17 18:46:00 CDT Notes: (Same as: Apresoline)Push over 5 minutes Start Date: 12/12/17 Stop Date: 12/12/17 Status: Completed hydrALAZINE 10 mg, 0.5 mL, Route: IV, Drug form: INJ, Q4H, Dosing Weight 61.364, kg, PRN Hyp ertension, Start date: 12/12/17 22:07:00 CDT, Duration: 30 day, Stop date: 01/11 22:06:00 CDT Notes: (Same as: Apresoline)Push over 5 minutes Start Date: 12/12/17 Stop Date: 12/21/17 Status: Discontinued hydrALAZINE 50 mg oral tablet 50 mg=1 tab, PO, TID, Hold if SBP is less than 110 mmhg, # 90 tab, 3 Refill(s), Pharmacy: [facility]/pharmacy #[id number] Start Date: 12/21/17 Stop Date: 04/20/18 Status: Ordered hydromorphone 2 mg, 1 tab, Route: PO, Drug form: TAB, Q4H, Dosing Weight 59.659, kg, PRN Pain Score 7-10, Start date: 12/15/17 11:31:00 CDT, Stop date: 01/14/18 11:30:00 CDT Notes: (Same as: Dilaudid) Start Date: 12/15/17 Stop Date: 12/21/17 Status: Discontinued hydromorphone 1 mg, 0.5 tab, Route: PO, Drug form: TAB, Q4H, Dosing Weight 59.659, kg, PRN Roger n Score 4-6, Start date: 12/15/17 11:31:00 CDT, Stop date: 01/14/18 11:30:00 CDT Notes: (Same as: Dilaudid) Start Date: 12/15/17 Stop Date: 12/21/17 Status: Discontinued insulin lispro 4 unit, 0.04 mL, Route: SUB-Q, Drug form: SOLN, Bedtime, Dosing Weight 59.659, k g, PRN Blood Glucose Results, Start date: 12/18/17 21:14:00 CDT, Duration: 30 da y, Stop date: 01/17/18 21:13:00 CDT Notes: (Same as: Humalog ) Roll in palms of hands gently; Do not shake `vigorou sly. "Single Patient Use Only " WASTE: F/P - Black; E - Municipal Trash Bin St able for 28 days at room temperature.Expires in days from Da te Start Date: 12/18/17 Stop Date: 12/21/17 Status: Discontinued insulin lispro 3 unit, 0.03 mL, Route: SUB-Q, Drug form: SOLN, Bedtime, Dosing Weight 59.659, k g, PRN Blood Glucose Results, Start date: 12/18/17 21:14:00 CDT, Duration: 30 da y, Stop date: 01/17/18 21:13:00 CDT Notes: (Same as: Humalog ) Roll in palms of hands gently; Do not shake `vigorou sly. "Single Patient Use Only " WASTE: F/P - Black; E - Municipal Trash [facility] St able for 28 days at room temperature.Expires in days from Da te Start Date: 12/18/17 Stop Date: 12/21/17 Status: Discontinued insulin lispro 2 unit, 0.02 mL, Route: SUB-Q, Drug form: SOLN, Bedtime, Dosing Weight 59.659, k g, PRN Blood Glucose Results, Start date: 12/18/17 21:14:00 CDT, Duration: 30 da y, Stop date: 01/17/18 21:13:00 CDT Notes: (Same as: Humalog ) Roll in palms of hands gently; Do not shake `vigorou sly. "Single Patient Use Only " WASTE: F/P - Black; E - [facility] Trash [facility] St able for 28 days at room temperature.Expires in days from Da te Start Date: 12/18/17 Stop Date: 12/21/17 Status: Discontinued insulin lispro 1 unit, 0.01 mL, Route: SUB-Q, Drug form: SOLN, Bedtime, Dosing Weight 59.659, k g, PRN Blood Glucose Results, Start date: 12/18/17 21:14:00 CDT, Duration: 30 da y, Stop date: 01/17/18 21:13:00 CDT Notes: (Same as: Humalog ) Roll in palms of hands gently; Do not shake `vigorou sly. "Single Patient Use Only " WASTE: F/P - Black; E - [facility] Trash [facility] St able for 28 days at room temperature.Expires in days from Da te Start Date: 12/18/17 Stop Date: 12/21/17 Status: Discontinued insulin lispro 4 unit, 0.04 mL, Route: SUB-Q, Drug form: SOLN, TID-Before Meals, Dosing Weight 61.364, kg, PRN Blood Glucose Results, Start date: 12/12/17 22:10:00 CDT, Durati on: 30 day, Stop date: 01/11/18 22:09:00 CDT Notes: (Same as: Humalog ) Roll in palms of hands gently; Do not shake `vigorou sly. "Single Patient Use Only " WASTE: F/P - Black; E - [facility] Trash [facility] St able for 28 days at room temperature.Expires in days from Da te Start Date: 12/12/17 Stop Date: 12/21/17 Status: Discontinued insulin lispro 5 unit, 0.05 mL, Route: SUB-Q, Drug form: SOLN, TID-Before Meals, Dosing Weight 61.364, kg, PRN Blood Glucose Results, Start date: 12/12/17 22:10:00 CDT, Durati on: 30 day, Stop date: 01/11/18 22:09:00 CDT Notes: (Same as: Humalog ) Roll in palms of hands gently; Do not shake `vigorou sly. "Single Patient Use Only " WASTE: F/P - Black; E - [facility] Trash [facility] St able for 28 days at room temperature.Expires in days from Da te Start Date: 12/12/17 Stop Date: 12/21/17 Status: Discontinued insulin lispro 2 unit, 0.02 mL, Route: SUB-Q, Drug form: SOLN, TID-Before Meals, Dosing Weight 61.364, kg, PRN Blood Glucose Results, Start date: 12/12/17 22:10:00 CDT, Durati on: 30 day, Stop date: 01/11/18 22:09:00 CDT Notes: (Same as: Humalog ) Roll in palms of hands gently; Do not shake `vigorou sly. "Single Patient Use Only " WASTE: F/P - Black; E - Municipal Trash [address] St able for 28 days at room temperature.Expires in days from Da te Start Date: 12/12/17 Stop Date: 12/21/17 Status: Discontinued insulin lispro 3 unit, 0.03 mL, Route: SUB-Q, Drug form: SOLN, TID-Before Meals, Dosing Weight 61.364, kg, PRN Blood Glucose Results, Start date: 12/12/17 22:10:00 CDT, Durati on: 30 day, Stop date: 01/11/18 22:09:00 CDT Notes: (Same as: Humalog ) Roll in palms of hands gently; Do not shake `vigorou sly. "Single Patient Use Only " WASTE: F/P - Black; E - [facility] Tr[address] St able for 28 days at room temperature.Expires in days from Da te Start Date: 12/12/17 Stop Date: 12/21/17 Status: Discontinued insulin lispro 1 unit, 0.01 mL, Route: SUB-Q, Drug form: SOLN, TID-Before Meals, Dosing Weight 61.364, kg, PRN Blood Glucose Results, Start date: 12/12/17 22:10:00 CDT, Durati on: 30 day, Stop date: 01/11/18 22:09:00 CDT Notes: (Same as: Humalog ) Roll in palms of hands gently; Do not shake `vigorou sly. "Single Patient Use Only " WASTE: F/P - Black; E - Municipal Trash [address] St able for 28 days at room temperature.Expires in days from Da te Start Date: 12/12/17 Stop Date: 12/21/17 Status: Discontinued Insulin regular 5 unit, 0.05 mL, Route: IVP, Drug form: INJ, ONCE, Dosing Weight 61.364, kg, Mary ority: STAT, Start date: 12/12/17 19:06:00 CDT, Stop date: 12/12/17 19:06:00 CDT Notes: (Same as: Humulin R and NovoLIN R)WASTE: F/P - Black; E - Municipal Trash Bin (Do not shake) Start Date: 12/12/17 Stop Date: 12/12/17 Status: Completed Iodosorb 0.9% topical gel 1 appl, Route: TOP, Daily, Drug form: GEL, Start date: 12/14/17 9:00:00 CDT, Dur ation: 30 day, Stop date: 01/12/18 9:00:00 CDT Notes: Same as; IodosorbFOR EXTERNAL USE ONLY Non-Formulary Drug Start Date: 12/14/17 Stop Date: 12/21/17 Status: Discontinued Gibson packet 1 pkt, Route: PO, Drug Form: PWDR, Dosing Weight 59.659, kg, BID-Before Meals, S tart date: 12/19/17 16:30:00 CDT, Duration: 14 day, Stop date: 01/02/18 7:30:00 CDT Notes: (Same as: Gibson Rico) Start Date: 12/19/17 Stop Date: 12/21/17 Status: Discontinued Lactated Ringers Injection IV 1,000 mL 1,000 mL, Rate: 100 ml/hr, Infuse over: 10 hr, Route: IV, Dosing Weight 59.659 k g, Total Volume: 1,000, Start date: 12/15/17 11:31:00 CDT, Duration: 30 day, Sto p date: 01/14/18 11:30:00 CDT, 1.72, m2 Start Date: 12/15/17 Stop Date: 12/19/17 Status: Discontinued Levaquin 500 mg oral tablet 500 mg=1 tab, PO, Q48H, X 14 day, # 7 tab, 0 Refill(s), Pharmacy: [facility]/pharmacy # [id number] Start Date: 12/21/17 Stop Date: 01/04/18 Status: Ordered lidocaine (ANES) Route: IV, Drug form: INJ, ONCE, Stop date: 12/18/17 15:56:00 CDT Start Date: 12/18/17 Stop Date: 12/18/17 Status: Completed lisinopril 20 mg, 1 tab, Route: PO, Drug form: TAB, Daily, Dosing Weight 61.364, kg, Start date: 12/13/17 9:00:00 CDT, Duration: 30 day, Stop date: 01/11/18 9:00:00 CDT Notes: (Same as: Prinivil, Zestril) Start Date: 12/13/17 Stop Date: 12/21/17 Status: Discontinued lisinopril 20 mg oral tablet 20 mg=1 tab, PO, Daily, # 30 tab, 0 Refill(s), Pharmacy: [facility]/pharmacy #[id number] Start Date: 12/21/17 Status: Ordered mannitol 25 gm, Route: IVPB, ONCE, Dosing Weight 61.364, kg, Start date: 12/12/17 21:18:0 0 CDT, Stop date: 12/12/17 21:18:00 CDT Start Date: 12/12/17 Stop Date: 12/12/17 Status: Deleted mannitol 25% intravenous solution 12.5 gm, 50 mL, Route: IV, Drug form: INJ, ONCALL, Start date: 12/12/17 22:00:00 CDT, Duration: 12 hr, Stop date: 12/13/17 9:59:00 CDT Notes: (Same as: Osmitrol) Infuse through 5 micron or smaller filter WASTE: F/P - Sink; E - Municipal Trash Bin Start Date: 12/12/17 Stop Date: 12/12/17 Status: Completed mannitol 25% intravenous solution 12.5 gm, 50 mL, Route: IV, Drug form: INJ, ONCALL, Start date: 12/12/17 22:00:00 CDT, Duration: 12 hr, Stop date: 12/13/17 9:59:00 CDT Notes: (Same as: Osmitrol) Infuse through 5 micron or smaller filter WASTE: F/P - Sink; E - Municipal Trash Bin Start Date: 12/12/17 Stop Date: 12/13/17 Status: Completed Maxipime + sterile water 10 mL 1 gm, Route: IV, ONCE, Start date: 12/13/17 22:21:00 CDT, Stop date: 12/13/17 22 :21:00 CDT, ABX Indication: Bone/Joint Infection Notes: (Same As: Maxipime) MEDICATION WASTE Product Size: 1000 mgProduc t Wasted: ___ mg Start Date: 12/13/17 Stop Date: 12/14/17 Status: Completed metoclopramide (ANES) Route: IV, Drug form: INJ, ONCE, Stop date: 12/15/17 11:25:00 CDT Start Date: 12/15/17 Stop Date: 12/15/17 Status: Completed metoprolol tartrate 25 mg, 1 tab, Route: PO, Drug form: TAB, Q12H, Dosing Weight 61.364, kg, Priorit y: NOW, Start date: 12/12/17 22:08:00 CDT, Duration: 30 day, Stop date: 01/11/18 21:00:00 CDT Notes: (Same as: Lopressor) Start Date: 12/12/17 Stop Date: 12/21/17 Status: Discontinued metoprolol tartrate 25 mg oral tablet 25 mg=1 tab, PO, BID, # 60 tab, 0 Refill(s), Pharmacy: [facility]/pharmacy #[id number] Start Date: 12/21/17 Status: Ordered metroNIDAZOLE 500 mg oral tablet 500 mg=1 tab, PO, ABXQ8H, X 14 day, # 42 tab, 0 Refill(s), Pharmacy: [facility]/pharmac y #[id number] Start Date: 12/21/17 Stop Date: 01/04/18 Status: Ordered midazolam (ANES) Route: IV, Drug form: SOLN, ONCE, Stop date: 12/15/17 11:25:00 CDT Start Date: 12/15/17 Stop Date: 12/15/17 Status: Completed midazolam (ANES) Route: IV, Drug form: SOLN, ONCE, Stop date: 12/18/17 15:56:00 CDT Start Date: 12/18/17 Stop Date: 12/18/17 Status: Completed normal saline 0.9% IV 1,000 mL 1,000 mL, Rate: 100 ml/hr, Infuse over: 10 hr, Route: IV, Dosing Weight 59.659 k g, Total Volume: 1,000, Start date: 12/15/17 11:31:00 CDT, Duration: 30 day, Sto p date: 01/14/18 11:30:00 CDT, 1.72, m2 Start Date: 12/15/17 Stop Date: 12/19/17 Status: Discontinued ondansetron (ANES) Route: IV, Drug form: INJ, ONCE, Stop date: 12/18/17 15:56:00 CDT Start Date: 12/18/17 Stop Date: 12/18/17 Status: Completed ondansetron (ANES) Route: IV, Drug form: INJ, ONCE, Stop date: 12/15/17 11:30:00 CDT Start Date: 12/15/17 Stop Date: 12/15/17 Status: Completed propofol (ANES) Route: IV, Drug form: INJ, ONCE, Stop date: 12/18/17 15:56:00 CDT Start Date: 12/18/17 Stop Date: 12/18/17 Status: Completed protamine (ANES) Route: IV, Drug form: INJ, ONCE, Stop date: 12/15/17 11:36:00 CDT Start Date: 12/15/17 Stop Date: 12/15/17 Status: Completed Saline Flush 0.9% 10 mL, Route: IVP, Drug Form: INJ, Dosing Weight 61.364, kg, PRN, PRN Line Flush , Start date: 12/12/17 19:06:00 CDT, Duration: 30 day, Stop date: 01/11/18 19:05 :00 CDT Notes: (Same as: BD Posiflush) Start Date: 12/12/17 Stop Date: 12/21/17 Status: Discontinued scopolamine 1.5 mg transdermal film 1 patch, Route: TOP, Drug Form: ERFILM, Dosing Weight 59.659, kg, ONCE, Start da te: 12/15/17 11:01:00 CDT, Stop date: 12/15/17 11:01:00 CDT Start Date: 12/15/17 Stop Date: 12/15/17 Status: Completed sodium bicarbonate 50 mEq, 50 mL, Route: IVP, Drug form: INJ, ONCE, Dosing Weight 61.364, kg, Prior ity: STAT, Start date: 12/12/17 19:06:00 CDT, Stop date: 12/12/17 19:06:00 CDT Notes: (sodium bicarb 8.4% (1 mEq/ml) 50 ml syringe) Start Date: 12/12/17 Stop Date: 12/12/17 Status: Completed sodium chloride (ANES) 10 mL Route: IV, Drug Form: INJ, Start date: 12/18/17 15:06:00 CDT, Stop date: 8 16:06:00 CDT Start Date: 12/18/17 Stop Date: 12/18/17 Status: Completed Sodium Chloride 0.9% (titrate) 250 mL 250 mL, Rate: To prime line and flush remaining blood products., Dosing Weight 5 9.659, kg, Route: IV, Total Volume: 250, Priority: Routine, Start Date: 12/14/17 7:13:00 CDT, Duration: 1 day, Stop date: 12/15/17 7:12:00 CDT, Replace Every: 24 hr Start Date: 12/14/17 Stop Date: 12/15/17 Status: Completed Sodium Chloride 0.9% IV (ANES) 500 mL Route: IV, Total Volume: 500, Start date: 12/15/17 10:40:00 CDT, Stop date: 12/05 08/24 11:40:00 CDT Start Date: 12/15/17 Stop Date: 12/15/17 Status: Completed Sodium Chloride 0.9% IV 500 mL 500 mL, Rate: 25 ml/hr, Infuse over: 20 hr, Route: IV, Dosing Weight 59.659 kg, Total Volume: 500, Start date: 12/18/17 15:06:00 CDT, Duration: 30 day, Stop nghia e: 01/17/18 15:05:00 CDT, 1.72, m2 Start Date: 12/18/17 Stop Date: 12/18/17 Status: Discontinued Sodium Chloride 0.9% IV 500 mL 500 mL, Rate: 25 ml/hr, Infuse over: 20 hr, Route: IV, Dosing Weight 59.659 kg, Total Volume: 500, Start date: 12/15/17 10:46:00 CDT, Duration: 1 day, Stop date : 12/16/17 10:45:00 CDT, 1.72, m2 Start Date: 12/15/17 Stop Date: 12/16/17 Status: Completed sodium polystyrene sulfonate 15 gm, 60 mL, Route: PO, Drug form: SUSP, ONCE, Dosing Weight 61.364, kg, Priori ty: STAT, Start date: 12/12/17 19:06:00 CDT, Stop date: 12/12/17 19:06:00 CDT Notes: (sodium polystyrene sulfonate 15 gm/60 ml JUSTIN) Shake well before use. (Same as: Kayexalate, SPS) Start Date: 12/12/17 Stop Date: 12/12/17 Status: Completed vancomycin + Dextrose 5% in Water IV 250 mL 1,000 mg, Route: IVPB, ONCE, Dosing Weight 61.364, kg, Priority: STAT, Start nghia e: 12/12/17 18:46:00 CDT, Stop date: 12/12/17 18:46:00 CDT, ABX Indication: Skin /Soft Tissue Infection Notes: TIME CRITICAL MEDICATION(Same As: Vancocin)Infusion rate< 1000 mg: infuse over 1 [id number] - 1500 mg: infuse over 1.5 [id number] - 2000 mg: infuse over 2 hours> 2001 mg: infuse over 2.5 hoursFor adult patients only: Round to nearest 250 mg per Medical Staff approval MEDICATION WASTE Product Size: 1000 mgProduct Wasted: ___ mg Start Date: 12/12/17 Stop Date: 12/12/17 Status: Discontinued vancomycin + Dextrose 5% in Water IV 250 mL 750 mg, Route: IVPB, , Start date: 12/16/17 17:00:00 CDT, Duration: 30 day, Stop date: 01/13/18 17:00:00 CDT, ABX Indication: Bone/Joint Infection Notes: TIME CRITICAL MEDICATION(Same As: Vancocin)Infusion rate< 1000 mg: infuse over 1 [id number] - 1500 mg: infuse over 1.5 [id number] - 2000 mg: infuse over 2 hours> 2001 mg: infuse over 2.5 hoursFor adult patients only: Round to nearest 250 mg per Medical Staff approval MEDICATION WASTE Product Size: 1000 mgProduct Wasted: ___ mg Start Date: 12/16/17 Stop Date: 12/18/17 Status: Discontinued vancomycin + Dextrose 5% in Water IV 250 mL 750 mg, Route: IVPB, ONCE, Start date: 12/12/17 23:00:00 CDT, Stop date: 8 23:00:00 CDT, ABX Indication: Skin/Soft Tissue Infection Notes: TIME CRITICAL MEDICATION(Same As: Vancocin)Infusion rate< 1000 mg: infuse over 1 [id number] - 1500 mg: infuse over 1.5 [id number] - 2000 mg: infuse over 2 hours> 2001 mg: infuse over 2.5 hoursFor adult patients only: Round to nearest 250 mg per Medical Staff approval MEDICATION WASTE Product Size: 1000 mgProduct Wasted: ___ mg Start Date: 12/12/17 Stop Date: 12/13/17 Status: Completed vancomycin + Sodium Chloride 0.9% IV 100 mL 500 mg, Route: IVPB, , Start date: 12/13/17 17:00:00 CDT, Stop date: 01/11/18 17:00:00 CDT, ABX Indication: Skin/Soft Tissue Infection Notes: TIME CRITICAL MEDICATION(Same As: Vancocin)For adult patients only: Round to nearest 250 mg per Medical Staff approval Start Date: 12/13/17 Stop Date: 12/15/17 Status: Discontinued vancomycin + Sodium Chloride 0.9% IV 250 mL 1,000 mg, Route: IVPB, , Start date: 12/19/17 17:00:00 CDT, Duration: 30 day, Stop date: 01/16/18 17:00:00 CDT, ABX Indication: Skin/Soft Tissue Infec tion Notes: TIME CRITICAL MEDICATION(Same As: Vancocin)Infusion rate< 1000 mg: infuse over 1 [id number] - 1500 mg: infuse over 1.5 [id number] - 2000 mg: infuse over 2 hours> 2001 mg: infuse over 2.5 hoursFor adult patients only: Round to nearest 250 mg per Medical Staff approval MEDICATION WASTE Product Size: 1000 mgProduct Wasted: ___ mg Start Date: 12/19/17 Stop Date: 12/19/17 Status: Canceled Vancomycin Pharmacy Dosing 1 ea, Route: MISC, ONCALL, Dosing Weight 61.364, kg, Start date: 12/12/17 23:00: 00 CDT, Duration: 7 day, Stop date: 12/19/17 22:59:00 CDT, Pharmacy to dose, ABX Indication: Skin/Soft Tissue Infection Start Date: 12/12/17 Stop Date: 12/12/17 Status: Deleted Vasotec 2.5 mg, 2 mL, Route: IVP, Drug form: INJ, Q6H, Dosing Weight 61.364, kg, PRN Hyp ertension, Start date: 12/12/17 22:07:00 CDT, Duration: 30 day, Stop date: 01/11 22:06:00 CDT Notes: (Same as: Vasotec-IV) Start Date: 12/12/17 Stop Date: 12/21/17 Status: Discontinued Zosyn + Sodium Chloride 0.9% IV 100 mL 3.375 gm, Route: IVPB, ONCE, Dosing Weight 61.364, kg, Priority: STAT, Start nghia e: 12/12/17 18:46:00 CDT, Stop date: 12/12/17 18:46:00 CDT, ABX Indication: Skin /Soft Tissue Infection Notes: (Same as: Zosyn)Dosing based on Piperacillin component MEDICATION WA COLIN Product Size: 3375 mgProduct Wasted: ___ mg Start Date: 12/12/17 Stop Date: 12/12/17 Status: Completed Zosyn + Sodium Chloride 0.9% IV 100 mL 3.375 gm, Route: IVPB, [id number], Dosing Weight 61.364, kg, CrCl < 20 ml/min infuse over 4 hours, Start date: 12/13/17 8:00:00 CDT, Duration: 7 day, Stop date: 12/19/17 20:00:00 CDT, ABX Indication: Skin/Soft Tissue Infection Notes: (Same as: Zosyn)Dosing based on Piperacillin component MEDICATION WA COLIN Product Size: 3375 mgProduct Wasted: ___ mg Start Date: 12/13/17 Stop Date: 12/13/17 Status: Discontinued Results BLOOD BANK RESULTS 1 2 3 Most recent to oldest [Reference Range]: O POS *Unknown* (12/14/17 9:05 AM) ABO/Rh Negative (12/14/17 9:05 AM) Antibody Scrn Product available 1 (12/14/17 7:12 AM) RBC product 1Result Comment: 12/14/2017 11:11 [id number] Spoke to Ross Murphy. 12/14/2017 11:11 MORSE ELECTROLYTES 1 2 3 Most recent to oldest [Reference Range]: 133 mEq/L *LOW* (12/21/17 5:50 AM) 137 mEq/L (12/19/17 7:47 AM) 134 mEq/L *LOW* (12/17/17 6:01 AM) Sodium Lvl [135-145 mEq/L] 4.1 mEq/L (12/21/17 5:50 AM) 3.2 mEq/L *LOW* (12/19/17 7:47 AM) 3.7 mEq/L (12/18/17 7:01 AM) Potassium Lvl [3.5-5.1 mEq/L] 97 mEq/L (12/21/17 5:50 AM) 98 mEq/L (12/19/17 7:47 AM) 98 mEq/L (12/17/17 6:01 AM) Chloride Lvl [95-109 mEq/L] 27 mEq/L (12/21/17 5:50 AM) 29 mEq/L (12/19/17 7:47 AM) 28 mEq/L (12/17/17 6:01 AM) CO2 [24-32 mEq/L] 13.1 mEq/L (12/21/17 5:50 AM) 13.2 mEq/L (12/19/17 7:47 AM) 12.1 mEq/L (12/17/17 6:01 AM) AGAP [10.0-20.0 mEq/L] CHEM PANEL 1 2 3 Most recent to oldest [Reference Range]: 4.75 mg/dL *HI* (12/21/17 5:50 AM) 3.69 mg/dL *HI* (12/19/17 7:47 AM) 3.53 mg/dL *HI* (12/17/17 6:01 AM) Creatinine Lvl [0.50-1.40 mg/dL] 12 mL/min/1.73m2 1 *NA* (12/21/17 5:50 AM) 17 mL/min/1.73m2 2 *NA* (12/19/17 7:47 AM) 17 mL/min/1.73m2 3 *NA* (12/17/17 6:01 AM) eGFR 53 mg/dL *HI* (12/21/17 5:50 AM) 23 mg/dL *HI* (12/19/17 7:47 AM) 19 mg/dL (12/17/17 6:01 AM) BUN [7-22 mg/dL] 7 (12/15/17 6:54 AM) 9 (12/14/17 5:28 AM) 10 (12/13/17 3:43 AM) B/C Ratio [6-25] 156 mg/dL *HI* (12/21/17 5:50 AM) 117 mg/dL *HI* (12/19/17 7:47 AM) 189 mg/dL *HI* (12/17/17 6:01 AM) Glucose Lvl [70-99 mg/dL] 6.8 g/dL (12/15/17 6:54 AM) 6.2 g/dL *LOW* (12/14/17 5:28 AM) 6.5 g/dL (12/13/17 3:43 AM) Total Protein [6.4-8.4 g/dL] 2.2 g/dL *LOW* (12/15/17 6:54 AM) 2.0 g/dL *LOW* (12/14/17 5:28 AM) 2.3 g/dL *LOW* (12/13/17 3:43 AM) Albumin Lvl [3.5-5.0 g/dL] 4.6 g/dL *HI* (12/15/17 6:54 AM) 4.2 g/dL (12/14/17 5:28 AM) 4.2 g/dL (12/13/17 3:43 AM) Globulin [2.7-4.2 g/dL] 0.5 *LOW* (12/15/17 6:54 AM) 0.5 *LOW* (12/14/17 5:28 AM) 0.5 *LOW* (12/13/17 3:43 AM) A/G Ratio [0.7-1.6] 8.1 mg/dL *LOW* (12/21/17 5:50 AM) 7.7 mg/dL *LOW* (12/19/17 7:47 AM) 7.5 mg/dL *LOW* (12/17/17 6:01 AM) Calcium Lvl [8.5-10.5 mg/dL] 3.8 mg/dL (12/13/17 3:43 AM) 6.6 mg/dL *HI* (12/12/17 4:44 PM) Phosphorus [2.5-4.5 mg/dL] 2.1 mg/dL (12/17/17 6:01 AM) 2.0 mg/dL (12/15/17 6:54 AM) 1.6 mg/dL *LOW* (12/13/17 3:43 AM) Magnesium Lvl [1.8-2.4 mg/dL] 10 unit/L (12/15/17 6:54 AM) 11 unit/L (12/14/17 5:28 AM) 13 unit/L (12/13/17 3:43 AM) ALT [0-65 unit/L] 7 unit/L (12/15/17 6:54 AM) 6 unit/L (12/14/17 5:28 AM) 10 unit/L (12/13/17 3:43 AM) AST [0-37 unit/L] 105 unit/L (12/15/17 6:54 AM) 95 unit/L (12/14/17 5:28 AM) 98 unit/L (12/13/17 3:43 AM) Alk Phos [39-136 unit/L] 0.7 mg/dL (12/15/17 6:54 AM) 0.4 mg/dL (12/14/17 5:28 AM) 0.5 mg/dL (12/13/17 3:43 AM) Bili Total [0.2-1.3 mg/dL] 0.2 mg/dL (12/12/17 4:44 PM) Bili Direct [0.0-0.3 mg/dL] 0.3 mg/dL (12/12/17 4:44 PM) Bili Indirect [0.0-1.0 mg/dL] 1.2 mMol/L (12/12/17 6:59 PM) Lactic Acid Lvl [0.5-2.2 mMol/L] 1Result Comment: The eGFR is calculated using [...] be mul tiplied by the estimated BMI. CARDIAC ENZYMES 1 2 3 Most recent to oldest [Reference Range]: 81 unit/L (12/12/17 4:44 PM) Total CK [12-191 unit/L] <0.02 ng/mL (12/12/17 4:44 PM) Troponin-I [0.00-0.40 ng/mL] 1591 pg/mL *HI* (12/12/17 4:44 PM) BNP [<=100 pg/mL] TOXICOLOGY 1 2 3 Most recent to oldest [Reference Range]: 16.3 ug/ml *NA* (12/18/17 3:50 AM) 12.6 ug/ml *NA* (12/15/17 6:54 AM) Vanco Lvl ENDOCRINOLOGY 1 2 3 Most recent to oldest [Reference Range]: Negative *NA* (12/14/17 4:55 PM) S Preg [Negative] IMMUNOLOGY 1 2 3 Most recent to oldest [Reference Range]: Negative *NA* (12/12/17 11:30 PM) Hep Bs Ag [Negative] HEMATOLOGY 1 2 3 Most recent to oldest [Reference Range]: 13.9 K/CMM *HI* (12/21/17 5:50 AM) 17.7 K/CMM *HI* (12/20/17 5:25 AM) 15.5 K/CMM *HI* (12/19/17 7:47 AM) WBC [3.7-10.4 K/CMM] 3.55 M/CMM *LOW* (12/21/17 5:50 AM) 3.56 M/CMM *LOW* (12/20/17 5:25 AM) 3.17 M/CMM *LOW* (12/19/17 7:47 AM) RBC [4.70-6.10 M/CMM] 10.1 g/dL *LOW* (12/21/17 5:50 AM) 10.2 g/dL *LOW* (12/20/17 5:25 AM) 9.2 g/dL *LOW* (12/19/17 7:47 AM) Hgb [14.0-18.0 g/dL] 31.0 % *LOW* (12/21/17 5:50 AM) 30.9 % *LOW* (12/20/17 5:25 AM) 27.5 % *LOW* (12/19/17 7:47 AM) Hct [42.0-54.0 %] 87.1 fL (12/21/17 5:50 AM) 86.7 fL (12/20/17 5:25 AM) 86.8 fL (12/19/17 7:47 AM) MCV [80.0-94.0 fL] 28.5 pg (12/21/17 5:50 AM) 28.5 pg (12/20/17 5:25 AM) 29.1 pg (12/19/17 7:47 AM) MCH [27.0-31.0 pg] 32.7 g/dL (12/21/17 5:50 AM) 32.9 g/dL (12/20/17 5:25 AM) 33.5 g/dL (12/19/17 7:47 AM) MCHC [32.0-36.0 g/dL] 16.1 % *HI* (12/21/17 5:50 AM) 15.2 % *HI* (12/20/17 5:25 AM) 15.5 % *HI* (12/19/17 7:47 AM) RDW [11.5-14.5 %] 8.4 fL (12/21/17 5:50 AM) 8.3 fL (12/20/17 5:25 AM) 8.1 fL (12/19/17 7:47 AM) MPV [7.4-10.4 fL] 215 K/CMM (12/21/17 5:50 AM) 218 K/CMM (12/20/17 5:25 AM) 215 K/CMM (12/19/17 7:47 AM) Platelet [133-450 K/CMM] 66.2 % (12/21/17 5:50 AM) 71.8 % (12/20/17 5:25 AM) 82.8 % *HI* (12/19/17 7:47 AM) Segs [45.0-75.0 %] 11.9 % *LOW* (12/21/17 5:50 AM) 8.1 % *LOW* (12/20/17 5:25 AM) 4.8 % *LOW* (12/19/17 7:47 AM) Lymphocytes [20.0-40.0 %] 18.3 % *HI* (12/21/17 5:50 AM) 17.5 % *HI* (12/20/17 5:25 AM) 9.7 % (12/19/17 7:47 AM) Monocytes [2.0-12.0 %] 2.8 % (12/21/17 5:50 AM) 1.9 % (12/20/17 5:25 AM) 2.0 % (12/19/17 7:47 AM) Eosinophils [0.0-4.0 %] 0.8 % (12/21/17 5:50 AM) 0.7 % (12/20/17 5:25 AM) 0.7 % (12/19/17 7:47 AM) Basophils [0.0-1.0 %] 9.2 K/CMM *HI* (12/21/17 5:50 AM) 12.7 K/CMM *HI* (12/20/17 5:25 AM) 12.8 K/CMM *HI* (12/19/17 7:47 AM) Segs-Bands # [1.5-8.1 K/CMM] 1.7 K/CMM (12/21/17 5:50 AM) 1.4 K/CMM (12/20/17 5:25 AM) 0.7 K/CMM *LOW* (12/19/17 7:47 AM) Lymphocytes # [1.0-5.5 K/CMM] 2.5 K/CMM *HI* (12/21/17 5:50 AM) 3.1 K/CMM *HI* (12/20/17 5:25 AM) 1.5 K/CMM *HI* (12/19/17 7:47 AM) Monocytes # [0.0-0.8 K/CMM] 0.4 K/CMM (12/21/17 5:50 AM) 0.3 K/CMM (12/20/17 5:25 AM) 0.3 K/CMM (12/19/17 7:47 AM) Eosinophils # [0.0-0.5 K/CMM] 0.1 K/CMM (12/21/17 5:50 AM) 0.1 K/CMM (12/20/17 5:25 AM) 0.1 K/CMM (12/19/17 7:47 AM) Basophils # [0.0-0.2 K/CMM] 14.7 seconds (12/14/17 4:55 PM) 15.0 seconds *HI* (12/12/17 4:44 PM) PT [12.0-14.7 seconds] 1.15 (12/14/17 4:55 PM) 1.17 (12/12/17 4:44 PM) INR [0.85-1.17] 32.9 seconds (12/14/17 4:55 PM) 33.7 seconds (12/12/17 4:44 PM) PTT [22.9-35.8 seconds] Immunizations No data available for this section [...] Reg Smoking Cessation Counseling No entered on: 12/12/17 14 beers a week Assessment and Plan Extracted from: Title: Clinical Document Author: Mk Walters MD Date: 12/21/17 Nephrology Note Mk Walters MD FACP FASN Subjective: Patient seen and examined. Doing well. On HD. VitalsTmp(F)[id number] 12/21 08:2998.382729/396401--- 12/21 02:4998.264951/86--97--- 12/20 23:1698.704855/79--96--- 12/20 20:3398.823779/85--95--- 12/20 15:5198.967262/8918------ 24 Hr Tmax: 98.9F (37.17c) at 12/20 23:16Vital Signs are the last 5 in the past 48 hours. I&ORecordInOutBal 1624hr Tot 1302 475 826 1524hr Tot [id number] [id number] Labs (Last four charted values) WBC H 13.9(DECEMBER 21)H 17.7(DECEMBER 20)H 15.5(DECEMBER 19)H 15.6(DECEMBER 17) Hgb L 10.1(DECEMBER 21)L 10.2(DECEMBER 20)L 9.2(DECEMBER 19)L 9.9(DECEMBER 17) Hct L 31.0(DECEMBER 21)L 30.9(DECEMBER 20)L 27.5(DECEMBER 19)L 29.6(DECEMBER 17) Plt 215(DECEMBER 21)218(DECEMBER 20)215(DECEMBER 19)277(DECEMBER 17) Na L 133(DECEMBER 21)137(DECEMBER 19)L 134(DECEMBER 17)L 132(DECEMBER 16) K 4.1(DECEMBER 21)L 3.2(DECEMBER 19)3.7(DECEMBER 18)4.1(DECEMBER 17) CO2 27(DECEMBER 21)29(DECEMBER 19)28(DECEMBER 17)29(DECEMBER 16) Cl 97(DECEMBER 21)98(DECEMBER 19)98(DECEMBER 17)97(DECEMBER 16) Cr H 4.75(DECEMBER 21)H 3.69(DECEMBER 19)H 3.53(DECEMBER 17)H 4.49(DECEMBER 16) BUN H 53(DECEMBER 21)H 23(DECEMBER 19)19(DECEMBER 17)H 31(DECEMBER 16) Glucose Random H 156(DECEMBER 21)H 117(DECEMBER 19)H 189(DECEMBER 17)H 182(DECEMBER 16) Mg 2.1(DECEMBER 17)2.0(DECEMBER 15)L 1.6(DECEMBER 13)2.0(DECEMBER 12) Phos 3.8(DECEMBER 13)H 6.6(DECEMBER 12) Ca L 8.1(DECEMBER 21)L 7.7(DECEMBER 19)L 7.5(DECEMBER 17)L 7.5(DECEMBER 16) PT 14.7(DECEMBER 14)H 15.0(DECEMBER 12) INR 1.15(DECEMBER 14)1.17(DECEMBER 12) PTT 32.9(DECEMBER 14)33.7(DECEMBER 12) Troponin <0.02(DECEMBER 12) Total CK 81(DECEMBER 12) Scheduled Meds (8): 12/14/17 cadexomer-iodine topical (Iodosorb 0.9% topical gel) 1 appl TOP Daily 12/13/17 cefepime + Sodium Chloride 0.9% IV 100 mL 1 gm IVPB [id number] 25 ml/hr 12/13/17 epoetin ruddy (Epogen (ESRD)) [...] No edema. Has left 2nd toe removed. EDGER HAND: Non focal. Assessment: 1. ESRD On HD on TTS schedule. 2. Hyperkalemia: Resolved. 3. Non compliance to dialysis treatment and medication. 4. PAD 5. Gangrene of the toes. Second big toe removed. 6. Cellulitis. Now the sepsis is improving and the white coumt is improving. Plan: Continue IV antibiotics and placement to a dialysis unit and a group home. Will follow. Patient seen in the dialysis unit. Addendum Patient has poor flow in the catheter. Will instill CathFlow and try to dialyze him. Will by also get Dr. Cheatham to get a tunnelled catheter. Mk Walters MD on 12/21/2017 09:29 Extracted from: Title: Clinical Document Author: Jay Cheatham MD Date: 12/15/17 PATIENT ENCOUNTER: [id number] DATE OF : 1955 DATE OF SURGERY: [...] accessed under ultrasound guidance and a 5 [place] arterial sheath was placed. Omni Flush catheter [...] Therefore, systemic heparin was administered. A 6 [place] arterial sheath was placed in the right femoral artery (destination sheath). Predilation left using a 5 x 60 balloon was performed in the kihqv-awd-roya popliteal artery. The balloon angioplasty resulted in resolution of 70% stenosis to residual 30% stenosis. Post angioplasty popliteal artery was treated with 5x120 mm DCB for 3 mins. Extracted from: Title: Clinical Document Author: Jay Cheatham MD Date: 12/14/17 VASCULAR SURGERY CONSULT NOTE Jay Cheatham MD [facility] DATE OF CONSULT: 12/14/2017 DATE OF : 1955 REFERRING PHYSICIAN:Dr Julien REASON FOR THE CONSULT: Bilateral lower extremity gangrene and peripheral arterial disease HISTORY OF PRESENT ILLNES This is a 62 years old patient was noncompliant and has end-stage renal disease. He has missed his hemodialysis also. Patient developed gangrene in both of his lower extremities and his been treated at [facility]. He reports that his last angiogram [...] urinary frequency. No incontinence. ALLERGIES: Allergies (1) ActiveReaction NKDANone documented MEDICATION LIST: Scheduled Meds (8): 12/14/17 cadexomer-iodine topical (Iodosorb 0.9% topical gel) 1 appl TOP Daily 12/13/17 cefepime + Sodium Chloride 0.9% IV 100 mL 1 gm IVPB [id number] 25 ml/hr 12/13/17 clindamycin 900 mg IVPB [id number] 100 ml/hr 12/13/17 epoetin ruddy (Epogen (ESRD)) 10,000 unit IV Q--Sa 12/13/17 heparin 5,000 unit SUB-Q Q8H 12/13/17 lisinopril 20 mg PO Daily 12/12/17 metoprolol (metoprolol tartrate) 25 mg PO Q12H 12/13/17 vancomycin + Sodium Chloride 0.9% IV 100 mL 500 mg IVPB Q- 100 ml/hr PAST MEDICAL HISTORY H/O: stroke [...] Substance Abuse Details: Use: None. PHYSICAL EXAM: VitalsTmp(F)[id number] 12/14 15:5798.3---176/[id number]--- 12/14 13:2898.3---171/921406--- 12/14 13:0597.281084/7918------ 12/14 08:4597.011085/8619------ 12/14 08:1598.223843/234571--- 24 Hr Tmax: 98.8F (37.11c) at 12/13 20:26Vital Signs are the last 5 in the [...] Labs (Last four charted values) WBC H 14.1(DECEMBER 14)H 18.3(DECEMBER 13)H 18.2(DECEMBER 12) Hgb L 7.2(DECEMBER 14)L 7.6(DECEMBER 13)L 8.4(DECEMBER 12) Hct L 21.7(DECEMBER 14)L 23.5(DECEMBER 13)L 25.9(DECEMBER 12) Plt 323(DECEMBER 14)332(DECEMBER 13)408(DECEMBER 12) Na 135(DECEMBER 14)139(DECEMBER 13)L 134(DECEMBER 13)L 131(DECEMBER 12) K 3.8(DECEMBER 14)3.8(DECEMBER 13)C 3.0(DECEMBER 13)C >10.0(DECEMBER 12) CO2 31(DECEMBER 14)31(DECEMBER 13)29(DECEMBER 13)L 16(DECEMBER 12) Cl 96(DECEMBER 14)98(DECEMBER 13)98(DECEMBER 13)102(DECEMBER 12) Cr H 5.09(DECEMBER 14)H 4.03(DECEMBER 13)H 3.50(DECEMBER 13)H 8.02(DECEMBER 12) BUN H 46(DECEMBER 14)H 38(DECEMBER 13)H 34(DECEMBER 13)H 103(DECEMBER 12) Glucose Random H 121(DECEMBER 14)H 132(DECEMBER 13)H 192(DECEMBER 13)97(DECEMBER 12) Mg L 1.6(DECEMBER 13)2.0(DECEMBER 12) Phos 3.8(DECEMBER 13)H 6.6(DECEMBER 12) Ca L 7.4(DECEMBER 14)L 8.0(DECEMBER 13)L 7.6(DECEMBER 13)C <5.0(DECEMBER 12) PT H 15.0(DECEMBER 12) INR 1.17(DECEMBER 12) PTT 33.7(DECEMBER 12) Troponin <0.02(DECEMBER 12) Total CK 81(DECEMBER 12) RADIOLOGIC AND VASCULAR IMAGING: Arterial Doppler [...] to proceeding with proximal foot amputations. Extracted from: Title: Hyperkalemia Author: Alfreda Meier DO Date: 12/12/17 Critical Care Medicine Chief complaint: Hyperkalemia History of present illness: 62 y.o male with a h/o ESRd on HD, HTN, and DM presnted to the ER for a wound check. He recently had an amputation of his left large toe at [place]. He states that he has not been on antibiotics or wound care recently. He felt too sick to drive to dialysis in the last week and a half. His schedule is usually M/W/F. Found to be hypertensive with a potassium of 10 in the ER. Medical managament of hyper kalemia has been initiated. Nephro plans for stat [...] Psychiatric: No confusion or depression Physical Exam VitalsTmp(F)[id number] 12/12 21:22----[id number]--- 12/12 20:30----[id number]--- 12/12 19:3798.452163/960401--- 12/12 19:28 1698 21% 12/12 18:40----[id number]--- 24 Hr Tmax: 98.2F (36.78c) at 12/12 19:37Vital Signs are the last 5 in the past 48 hours. Gen: mild distress HEENT: protecting airway Neuro: alert and oriented, nonlateralizing, no motor or sensory deficits Cardio: S1S2 reg, no murmurs Pulm: CTAB Abd: soft, normal bowel sounds Derm: purulent drainage L foot Ext: no edema, no cyanosis, no limb ischemia Labs (Last four charted values) WBC H 18.2(DECEMBER 12) Hgb L 8.4(DECEMBER 12) Hct L 25.9(DECEMBER 12) Plt 408(DECEMBER 12) Na L 131(DECEMBER 12) K C >10.0(DECEMBER 12) CO2 L 16(DECEMBER 12) Cl 102(DECEMBER 12) Cr H 8.02(DECEMBER 12) BUN H 103(DECEMBER 12) Glucose Random 97(DECEMBER 12) Mg 2.0(DECEMBER 12) Phos H 6.6(DECEMBER 12) Ca C <5.0(DECEMBER 12) PT H 15.0(DECEMBER 12) INR 1.17(DECEMBER 12) PTT 33.7(DECEMBER 12) Troponin <0.02(DECEMBER 12) Total CK 81(DECEMBER 12) Impression: 1. Hyperkalemia 2. Metabolic acidosis [...]
--- OUTSIDE RECORDS SUMMARY | 2019-02-28 06:13 | XMS REPORT | Summary of Care ---
Author Author [facility] Organization [facility] Address Unknown Phone Unavailable Encounter GRACE Ramos(RADHA) [id number] Date(s): 04/03/16 - 04/05/16 [facility] [address] [place] [address]- Discharge Disposition: Home or Self Care Attending Physician: Ирина Lo MD Admitting Physician: Ирина Lo MD Vital Signs 1 2 3 Most recent to oldest [Reference Range]: 175.26 cm (04/04/16 1:19 AM) 176.53 cm (04/03/16 7:07 PM) Height 68.324 kg (04/04/16 1:26 AM) Current Weight 97.4 DegF (04/05/16 11:26 AM) 97.8 DegF (04/05/16 8:14 AM) 97.4 DegF (04/05/16 3:34 AM) Temperature Oral [96.4-99.1 DegF] 160/91 mmHg *HI* (04/05/16 1:02 PM) 183/80 mmHg *HI* (04/05/16 11:26 AM) 174/91 mmHg *HI* (04/05/16 8:14 AM) Blood Pressure [90-140/60-90 mmHg] 16 BRMIN (04/05/16 11:26 AM) 16 BRMIN (04/05/16 9:40 AM) 16 BRMIN (04/05/16 8:14 AM) Respiratory Rate [14-20 BRMIN] 54 bpm *LOW* (04/05/16 11:26 AM) 60 bpm (04/05/16 8:14 AM) 57 bpm *LOW* (04/05/16 3:34 AM) Peripheral Pulse Rate [60-100 bpm] 68.636 kg (04/04/16 1:19 AM) 69.545 kg (04/03/16 7:07 PM) Weight 22.35 m2 (04/04/16 1:19 AM) 22.32 m2 (04/03/16 7:07 PM) Body Mass Index Problem List Condition Effective Dates Status Health Status Informant Diabetes(Confirmed) Active H/O: Resolved stroke(Confirmed) Hypertension(Confirm Active ed) Cancer of Active kidney(Confirmed) Primary cancer of Active skin of chest(Confirmed) Allergies, Adverse Reactions, Alerts Substance Reaction Severity Status NKDA Active Medications aspirin 324 mg, Route: CHEW, Drug form: CHEWTAB, ONCE, Dosing Weight 69.545, kg, Priorit y: STAT, Start date: 04/04/16 0:04:00 CDT, Stop date: 04/04/16 0:04:00 CDT Start Date: 04/04/16 Stop Date: 04/04/16 Status: Completed aspirin 81 mg tablet, enteric coated 81 mg, 1 tab, Route: PO, Drug form: ECTAB, Daily, Dosing Weight 69.545, kg, Star t date: 04/04/16 9:00:00 CDT, Duration: 30 day, Stop date: 05/03/16 9:00:00 CDT Notes: Do not crush or chew.(Same As: Ecotrin) Start Date: 04/04/16 Stop Date: 04/05/16 Status: Discontinued aspirin 81 mg tablet, enteric coated 81 mg=1 tab, PO, Daily, # 30 tab, 0 Refill(s) Start Date: 04/05/16 Status: Ordered atorvastatin 40 mg, 1 tab, Route: PO, Drug form: TAB, Bedtime, Dosing Weight 68.636, kg, Star t date: 04/04/16 21:00:00 CDT, Duration: 30 day, Stop date: 05/03/16 21:00:00 CD T Notes: (Same as: Lipitor) Start Date: 04/04/16 Stop Date: 04/05/16 Status: Discontinued atorvastatin 40 mg oral tablet 40 mg=1 tab, PO, Bedtime, # 30 tab, 0 Refill(s) Start Date: 04/05/16 Status: Ordered cloNIDine 0.1 mg, 1 tab, Route: PO, Drug form: TAB, Q8H, Dosing Weight 68.636, kg, PRN Hyp ertension, Start date: 04/04/16 16:27:00 CDT, Duration: 30 day, Stop date: 05/04 16:26:00 CDT Notes: (Same As: Catapres) Start Date: 04/04/16 Stop Date: 04/05/16 Status: Discontinued Dextrose 50% Syringe 25 gm, 50 mL, Route: IVP, Drug Form: INJ, Dosing Weight 69.545, kg, PRN, PRN Blo od Glucose Results, Start date: 04/04/16 1:15:00 CDT, Duration: 30 day, Stop nghia e: 05/04/16 1:14:00 CDT Start Date: 04/04/16 Stop Date: 04/05/16 Status: Discontinued Dextrose 50% Syringe 12.5 gm, 25 mL, Route: IVP, Drug Form: INJ, Dosing Weight 69.545, kg, PRN, PRN B lood Glucose Results, Start date: 04/04/16 1:15:00 CDT, Duration: 30 day, Stop d ate: 05/04/16 1:14:00 CDT Start Date: 04/04/16 Stop Date: 04/05/16 Status: Discontinued famotidine 20 mg, 1 tab, Route: PO, Drug form: TAB, Q12H, Dosing Weight 69.545, kg, Start d ate: 04/04/16 9:00:00 CDT, Duration: 30 day, Stop date: 05/03/16 21:00:00 CDT Notes: (Same as: Pepcid) Start Date: 04/04/16 Stop Date: 04/05/16 Status: Discontinued glucagon 1 mg, Route: IM, Drug form: PDR/INJ, PRN, Dosing Weight 69.545, kg, PRN Blood Gl ucose Results, Start date: 04/04/16 1:15:00 CDT, Duration: 30 day, Stop date: 1:14:00 CDT Start Date: 04/04/16 Stop Date: 04/05/16 Status: Discontinued hydrALAZINE 20 mg, 1 mL, Route: IVP, Drug form: INJ, ONCE, Dosing Weight 69.545, kg, Priorit y: STAT, Start date: 04/03/16 19:39:00 CDT, Stop date: 04/03/16 19:39:00 CDT Notes: (Same as: Apresoline)Push over 5 minutes Start Date: 04/03/16 Stop Date: 04/03/16 Status: Completed insulin aspart 8 unit, 0.08 mL, Route: SUB-Q, Drug form: SOLN, TID-Before Meals, Dosing Weight 69.545, kg, PRN Blood Glucose Results, Start date: 04/04/16 1:15:00 CDT, Duratio n: 30 day, Stop date: 05/04/16 1:14:00 CDT Notes: Roll in palms of hands gently; Do not shake vigorously. (Same as: Paola Ko)"single patient use only"WASTE: F/P - Black; E - Municipal Trash Bin Stable f or 28 days at room temperature.Expires in days from Date Start Date: 04/04/16 Stop Date: 04/05/16 Status: Discontinued insulin aspart 6 unit, 0.06 mL, Route: SUB-Q, Drug form: SOLN, TID-Before Meals, Dosing Weight 69.545, kg, PRN Blood Glucose Results, Start date: 04/04/16 1:15:00 CDT, Duratio n: 30 day, Stop date: 05/04/16 1:14:00 CDT Notes: Roll in palms of hands gently; Do not shake vigorously. (Same as: Paola Ko)"single patient use only"WASTE: F/P - Black; E - Municipal Trash Bin Stable f or 28 days at room temperature.Expires in days from Date Start Date: 04/04/16 Stop Date: 04/05/16 Status: Discontinued insulin aspart 10 unit, 0.1 mL, Route: SUB-Q, Drug form: SOLN, TID-Before Meals, Dosing Weight 69.545, kg, PRN Blood Glucose Results, Start date: 04/04/16 1:15:00 CDT, Duratio n: 30 day, Stop date: 05/04/16 1:14:00 CDT Notes: Roll in palms of hands gently; Do not shake vigorously. (Same as: NovoCORRINA Ko)"single patient use only"WASTE: F/P - Black; E - Municipal Trash Bin Stable f or 28 days at room temperature.Expires in days from Date Start Date: 04/04/16 Stop Date: 04/05/16 Status: Discontinued insulin aspart 4 unit, 0.04 mL, Route: SUB-Q, Drug form: SOLN, TID-Before Meals, Dosing Weight 69.545, kg, PRN Blood Glucose Results, Start date: 04/04/16 1:15:00 CDT, Duratio n: 30 day, Stop date: 05/04/16 1:14:00 CDT Notes: Roll in palms of hands gently; Do not shake vigorously. (Same as: NovoCORRINA Ko)"single patient use only"WASTE: F/P - Black; E - Municipal Trash Bin Stable f or 28 days at room temperature.Expires in days from Date Start Date: 04/04/16 Stop Date: 04/05/16 Status: Discontinued insulin aspart 2 unit, 0.02 mL, Route: SUB-Q, Drug form: SOLN, TID-Before Meals, Dosing Weight 69.545, kg, PRN Blood Glucose Results, Start date: 04/04/16 1:15:00 CDT, Duratio n: 30 day, Stop date: 05/04/16 1:14:00 CDT Notes: Roll in palms of hands gently; Do not shake vigorously. (Same as: NovoCORRINA G)"single patient use only"WASTE: F/P - Black; E - Municipal Trash Bin Stable f or 28 days at room temperature.Expires in days from Date Start Date: 04/04/16 Stop Date: 04/05/16 Status: Discontinued labetalol 10 mg, 2 mL, Route: IVP, Drug form: INJ, Q10Min, Dosing Weight 69.545, kg, PRN H ypertension, For SBP > 180 mmHg and/or DBP > 105 mmHg, Priority: Routine, Start date: 04/04/16 1:15:00 CDT, Duration: 30 day, Stop date: 05/04/16 1:14:00 CDT Notes: (Same as: Normodyne, Trandate)Push over 2 minutes Give bolus over 2-3 mi nutes. Start Date: 04/04/16 Stop Date: 04/05/16 Status: Discontinued lisinopril 20 mg oral tablet 20 mg=1 tab, PO, Daily, # 30 tab, 0 Refill(s) Start Date: 04/05/16 Stop Date: 04/05/16 Status: Discontinued lisinopril 20 mg oral tablet 20 mg=1 tab, PO, Daily, # 30 tab, 0 Refill(s) Start Date: 04/05/16 Status: Ordered Lopressor 25 mg, 1 tab, Route: PO, Drug form: TAB, Q12H, Dosing Weight 68.636, kg, Start d ate: 04/04/16 21:00:00 CDT, Duration: 30 day, Stop date: 05/04/16 9:00:00 CDT Notes: (Same as: Lopressor) Start Date: 04/04/16 Stop Date: 04/05/16 Status: Discontinued metoprolol tartrate 25 mg oral tablet 25 mg=1 tab, PO, BID, # 180 tab, 0 Refill(s) Start Date: 04/05/16 Stop Date: 04/05/16 Status: Discontinued metoprolol tartrate 25 mg oral tablet 25 mg=1 tab, PO, BID, # 60 tab, 0 Refill(s) Start Date: 04/05/16 Status: Ordered morphine Sulfate 2 mg, 1 mL, Route: IVP, Drug form: INJ, Q6H, Dosing Weight 69.545, kg, PRN Pain Score 6-10, Start date: 04/04/16 1:15:00 CDT, Duration: 30 day, Stop date: 05/04 1:14:00 CDT Notes: (Same as:MORPhine Sulfate) Start Date: 04/04/16 Stop Date: 04/05/16 Status: Discontinued nitroglycerin 2% ointment 0.5 inch, Route: TOP, Drug Form: OINT, Dosing Weight 69.545, kg, ONCE, STAT, Sta rt date: 04/03/16 22:30:00 CDT, Stop date: 04/03/16 22:30:00 CDT Notes: 1 gram is approximately 1 inch of nitroglycerin ointment (20 mg NTG pe r gram) (Same as:Nitro-Bid) Start Date: 04/03/16 Stop Date: 04/03/16 Status: Completed Saline Flush 0.9% 10 ml, Route: IVP, Drug Form: INJ, Dosing Weight 69.545, kg, PRN, PRN Line Flush , Start date: 04/04/16 1:15:00 CDT, Duration: 30 day, Stop date: 05/04/16 1:14:0 0 CDT Notes: (Same as: BD Posiflush) Start Date: 04/04/16 Stop Date: 04/05/16 Status: Discontinued Saline Flush 0.9% 10 ml, Route: IVP, Drug Form: INJ, Dosing Weight 69.545, kg, Q12H, Start date: 0 04/04/16 9:00:00 CDT, Duration: 30 day, Stop date: 05/03/16 21:00:00 CDT Notes: (Same as: BD Posiflush) Start Date: 04/04/16 Stop Date: 04/05/16 Status: Discontinued Saline Flush 0.9% 10 mL, Route: IVP, Drug Form: INJ, Dosing Weight 69.545, kg, PRN, PRN Line Flush , Start date: 04/03/16 19:39:00 CDT, Duration: 30 day, Stop date: 05/03/16 19:38 :00 CDT Notes: (Same as: BD Posiflush) Start Date: 04/03/16 Stop Date: 04/04/16 Status: Discontinued Results ELECTROLYTES 1 2 3 Most recent to oldest [Reference Range]: 138 mEq/L (04/05/16 4:23 AM) 139 mEq/L (04/04/16 6:40 AM) 139 mEq/L (04/03/16 8:12 PM) Sodium Lvl [135-145 mEq/L] 4.3 mEq/L (04/05/16 4:23 AM) 4.0 mEq/L (04/04/16 6:40 AM) 4.2 mEq/L (04/03/16 8:12 PM) Potassium Lvl [3.5-5.1 mEq/L] 104 mEq/L (04/05/16 4:23 AM) 105 mEq/L (04/04/16 6:40 AM) 105 mEq/L (04/03/16 8:12 PM) Chloride Lvl [95-109 mEq/L] 27 mEq/L (04/05/16 4:23 AM) 26 mEq/L (04/04/16 6:40 AM) 26 mEq/L (04/03/16 8:12 PM) CO2 [24-32 mEq/L] 11.3 mEq/L (04/05/16 4:23 AM) 12.0 mEq/L (04/04/16 6:40 AM) 12.2 mEq/L (04/03/16 8:12 PM) AGAP [10.0-20.0 mEq/L] CHEM PANEL 1 2 3 Most recent to oldest [Reference Range]: 1.61 mg/dL *HI* (04/05/16 4:23 AM) 1.52 mg/dL *HI* (04/04/16 6:40 AM) 1.63 mg/dL *HI* (04/03/16 8:12 PM) Creatinine Lvl [0.50-1.40 mg/dL] 46 mL/min/1.73m2 1 *NA* (04/05/16 4:23 AM) 49 mL/min/1.73m2 2 *NA* (04/04/16 6:40 AM) 45 mL/min/1.73m2 3 *NA* (04/03/16 8:12 PM) eGFR 33 mg/dL *HI* (04/05/16 4:23 AM) 29 mg/dL *HI* (04/04/16 6:40 AM) 32 mg/dL *HI* (04/03/16 8:12 PM) BUN [7-22 mg/dL] 19 (04/04/16 6:40 AM) 20 (04/03/16 8:12 PM) B/C Ratio [6-25] 270 mg/dL *HI* (04/05/16 4:23 AM) 106 mg/dL *HI* (04/04/16 6:40 AM) 129 mg/dL *HI* (04/03/16 8:12 PM) Glucose Lvl [70-99 mg/dL] 6.6 g/dL (04/04/16 6:40 AM) 6.9 g/dL (04/03/16 8:12 PM) Total Protein [6.4-8.4 g/dL] 3.3 g/dL *LOW* (04/04/16 6:40 AM) 3.4 g/dL *LOW* (04/03/16 8:12 PM) Albumin Lvl [3.5-5.0 g/dL] 3.3 g/dL (04/04/16 6:40 AM) 3.5 g/dL (04/03/16 8:12 PM) Globulin [2.7-4.2 g/dL] 1.0 (04/04/16 6:40 AM) 1.0 (04/03/16 8:12 PM) A/G Ratio [0.7-1.6] 8.3 mg/dL *LOW* (04/05/16 4:23 AM) 8.8 mg/dL (04/04/16 6:40 AM) 8.5 mg/dL (04/03/16 8:12 PM) Calcium Lvl [8.5-10.5 mg/dL] 14 unit/L (04/04/16 6:40 AM) 15 unit/L (04/03/16 8:12 PM) ALT [0-65 unit/L] 12 unit/L (04/04/16 6:40 AM) 10 unit/L (04/03/16 8:12 PM) AST [0-37 unit/L] 69 unit/L (04/04/16 6:40 AM) 75 unit/L (04/03/16 8:12 PM) Alk Phos [39-136 unit/L] 0.4 mg/dL (04/04/16 6:40 AM) 0.5 mg/dL (04/03/16 8:12 PM) Bili Total [0.2-1.3 mg/dL] 1Result Comment: [...] 3 Most recent to oldest [Reference Range]: 74 unit/L (04/03/16 8:12 PM) Total CK [12-191 unit/L] 3.3 ng/mL (04/03/16 8:12 PM) CK MB [0.5-3.6 ng/mL] 4.5 *HI* (04/03/16 8:12 PM) CK MB Index [0.0-2.5] <0.02 ng/mL (04/03/16 8:12 PM) Troponin-I [0.00-0.40 ng/mL] LIPIDS 1 2 3 Most recent to oldest [Reference Range]: 6.65 (04/04/16 6:40 AM) CHD Risk [4.00-7.30] 206 mg/dL *HI* (04/04/16 6:40 AM) Chol [<=199 mg/dL] 254 mg/dL *HI* (04/04/16 6:40 AM) Trig [<=149 mg/dL] 31 mg/dL *LOW* (04/04/16 6:40 AM) HDL [>=61 mg/dL] 124 mg/dL *HI* (04/04/16 6:40 AM) LDL (Calculated) [<=99 mg/dL] 51 *NA* (04/04/16 6:40 AM) VLDL SPECIAL CHEMISTRY 1 2 3 Most recent to oldest [Reference Range]: 7.6 % *HI* (04/04/16 6:40 AM) Hgb A1C [<=5.6 %] DRUG SCREEN 1 2 3 Most recent to oldest [Reference Range]: Negative *NA* (04/03/16 10:57 PM) U Amph Scr [Negative] Negative *NA* (04/03/16 10:57 PM) U Brittney Scr [Negative] Negative *NA* (04/03/16 10:57 PM) U Benzodia Scr [Negative] Negative *NA* (04/03/16 10:57 PM) U Cocaine Scr [Negative] Negative *NA* (04/03/16 10:57 PM) U Opiate Scr [Negative] Negative *NA* (04/03/16 10:57 PM) U Phencyc Scr [Negative] Negative *NA* (04/03/16 10:57 PM) U Cannab Scr [Negative] See Note *NA* (04/03/16 10:57 PM) UDS Note URINE AND STOOL 1 2 3 Most recent to oldest [Reference Range]: Clear (04/03/16 10:57 PM) UA Turbidity [Clear] Ltyellow *NA* (04/03/16 10:57 PM) UA Color 6.0 (04/03/16 10:57 PM) UA pH [5.0-8.0] 1.017 (04/03/16 10:57 PM) UA Spec Grav [<=1.030] 150 mg/dL *ABN* (04/03/16 10:57 PM) UA Glucose [Negative mg/dL] Negative (04/03/16 10:57 PM) UA Blood [Negative] Negative mg/dL *NA* (04/03/16 10:57 PM) UA Ketones [Negative mg/dL] 100 mg/dL *ABN* (04/03/16 10:57 PM) UA Protein [Negative mg/dL] <=1.0 mg/dL *NA* (04/03/16 10:57 PM) UA Urobilinogen [0.1-1.0 mg/dL] Negative *NA* (04/03/16 10:57 PM) UA Bili [Negative] Negative (04/03/16 10:57 PM) UA Leuk Est [Negative] Negative (04/03/16 10:57 PM) UA Nitrite [Negative] 1 /HPF (04/03/16 10:57 PM) UA WBC [0-5 /HPF] 6 /HPF *HI* (04/03/16 10:57 PM) UA RBC [0-2 /HPF] Occasional /LPF *NA* (04/03/16 10:57 PM) UA Sq Epi [Few /LPF] 2 /LPF (04/03/16 10:57 PM) UA Hyal Cast [0-2 /LPF] HEMATOLOGY 1 2 3 Most recent to oldest [Reference Range]: 7.0 K/CMM (04/05/16 4:23 AM) 10.5 K/CMM *HI* (04/04/16 6:40 AM) 13.0 K/CMM *HI* (04/03/16 8:12 PM) WBC [3.7-10.4 K/CMM] 4.22 M/CMM *LOW* (04/05/16 4:23 AM) 4.30 M/CMM *LOW* (04/04/16 6:40 AM) 4.37 M/CMM *LOW* (8/28/16 8:12 PM) RBC [4.70-6.10 M/CMM] 12.0 g/dL *LOW* (04/05/16 4:23 AM) 12.2 g/dL *LOW* (04/04/16 6:40 AM) 12.4 g/dL *LOW* (04/03/16 8:12 PM) Hgb [14.0-18.0 g/dL] 36.2 % *LOW* (04/05/16 4:23 AM) 36.2 % *LOW* (04/04/16 6:40 AM) 36.8 % *LOW* (04/03/16 8:12 PM) Hct [42.0-54.0 %] 85.7 fL (04/05/16 4:23 AM) 84.2 fL (04/04/16 6:40 AM) 84.3 fL (04/03/16 8:12 PM) MCV [80.0-94.0 fL] 28.4 pg (04/05/16 4:23 AM) 28.4 pg (04/04/16 6:40 AM) 28.3 pg (04/03/16 8:12 PM) MCH [27.0-31.0 pg] 33.2 g/dL (04/05/16 4:23 AM) 33.7 g/dL (04/04/16 6:40 AM) 33.6 g/dL (04/03/16 8:12 PM) MCHC [32.0-36.0 g/dL] 13.8 % (04/05/16 4:23 AM) 13.7 % (04/04/16 6:40 AM) 13.4 % (04/03/16 8:12 PM) RDW [11.5-14.5 %] 187 K/CMM (04/05/16 4:23 AM) 210 K/CMM (04/04/16 6:40 AM) 195 K/CMM (04/03/16 8:12 PM) Platelet [133-450 K/CMM] 7.8 fL (04/05/16 4:23 AM) 7.3 fL *LOW* (04/04/16 6:40 AM) 7.4 fL (04/03/16 8:12 PM) MPV [7.4-10.4 fL] 60.6 % (04/05/16 4:23 AM) 72.2 % (04/04/16 6:40 AM) 79.3 % *HI* (04/03/16 8:12 PM) Segs [45.0-75.0 %] 25.1 % (04/05/16 4:23 AM) 18.8 % *LOW* (04/04/16 6:40 AM) 11.7 % *LOW* (04/03/16 8:12 PM) Lymphocytes [20.0-40.0 %] 10.0 % (04/05/16 4:23 AM) 6.9 % (04/04/16 6:40 AM) 6.4 % (04/03/16 8:12 PM) Monocytes [2.0-12.0 %] 3.6 % (04/05/16 4:23 AM) 1.8 % (04/04/16 6:40 AM) 2.2 % (04/03/16 8:12 PM) Eosinophils [0.0-4.0 %] 0.7 % (04/05/16 4:23 AM) 0.3 % (04/04/16 6:40 AM) 0.4 % (04/03/16 8:12 PM) Basophils [0.0-1.0 %] 4.2 K/CMM (04/05/16 4:23 AM) 7.6 K/CMM (04/04/16 6:40 AM) 10.3 K/CMM *HI* (04/03/16 8:12 PM) Segs-Bands # [1.5-8.1 K/CMM] 1.7 K/CMM (04/05/16 4:23 AM) 2.0 K/CMM (04/04/16 6:40 AM) 1.5 K/CMM (04/03/16 8:12 PM) Lymphocytes # [1.0-5.5 K/CMM] 0.7 K/CMM (04/05/16 4:23 AM) 0.7 K/CMM (04/04/16 6:40 AM) 0.8 K/CMM (04/03/16 8:12 PM) Monocytes # [0.0-0.8 K/CMM] 0.2 K/CMM (04/05/16 4:23 AM) 0.2 K/CMM (04/04/16 6:40 AM) 0.3 K/CMM (04/03/16 8:12 PM) Eosinophils # [0.0-0.5 K/CMM] 0.1 K/CMM (04/05/16 4:23 AM) 0.1 K/CMM (04/03/16 8:12 PM) Basophils # [0.0-0.2 K/CMM] 13.4 seconds (04/03/16 8:12 PM) PT [12.0-14.7 seconds] 0.99 (04/03/16 8:12 PM) INR [0.85-1.17] 26.6 seconds (04/03/16 8:12 PM) PTT [22.9-35.8 seconds] Immunizations No data available for this section Procedures Procedure Date Related Diagnosis Body Site Insertion of renal artery stent1 Partial excision of kidney 1left neck Social History Social History Type Response Substance Abuse Use: None. Alcohol Current, Type Beer. Last use: yesterday.1 Smoking Status Never smoker; Exposure to Tobacco Smoke None; Cigarette Smoking Last 365 Days No; Reg Smoking Cessation Counseling No 14 beers a week Assessment and Plan Extracted from: Title: Clinical Document Author: Lynda Espinosa MD Date: 04/05/16 Progress Note - Daily [facility] Completed: Mar, 12:13 by Lynda Espinosa MD RM: [id number] - 1P, [id number], JAMES [id number] (: 1955) M Attending: Ирина Lo MDPhone: Service: Internal Medicine Reason for Admission: TIA, HYPERTENSION Working DRG: None Documented Code status: None Specified=FULL CODECurrent diet: Isolation: None Documented Allergies: NKDA SUBJECTIVE He feels well. No weakness, numbness, slurred speech, vision change, headache, chest pain, dizziness, shortness of breath, nausea, or chest pain. OBJECTIVE 24hr Labs 04/05 0818 Glucose [id number] H 04/05 0423 Glucose Zqo408 H BUN33 H Creatinine Lvl1.61 H Sodium Kbc072 Potassium Lvl4.3 Chloride Udz491 CO227 AGAP11.3 Calcium Lvl8.3 L eGFR46 WBC7.0 RBC4.22 L Hgb12.0 L Hct36.2 L MCV85.7 MCH28.4 MCHC33.2 RDW13.8 Jphyvbwm454 MPV7.8 Segs60.6 Lvshodulq41.0 Gdlgjpmsvnh30.1 Eosinophils3.6 Basophils0.7 Segs-Bands #4.2 Lymphocytes #1.7 Monocytes #0.7 Eosinophils #0.2 Basophils #0.1 04/04 2118 Glucose MFQ373 H 04/04 1738 Glucose UUX676 H 04/04 1257 Glucose AZE479 H Brizuela still necessary (Yes/No): Line still necessary (Yes/No): VitalsTmp(F)[id number] 04/05 09:40 59240 21% 04/05 08:1497.069345/731957--- 04/05 03:3497.279773/807396--- 04/05 00:34----19403/9618------ 04/04 23:1698.173761/474330--- 24 Hr Tmax: 98.2F (36.78c) at 04/04 23:16Vital Signs are the last 5 in the past 48 hours. DateWt(kg)Wt(lb)Ht(cm)Ht(in)Method 04/04 68.64 151.39020.26 69.00Measured 04/03 (initial) 69.55 153.00Estimated 76.53 69.50Stated I&ORecordInOutBal 03/3024hr Tot 10 0 10 03/2924hr Tot 20 0 20 Medications (17) Active [...]
--- OUTSIDE RECORDS SUMMARY | 2019-02-28 06:13 | XMS REPORT | Summary of Care ---
Author Author [facility] [place] Organization [facility] [place] Address Unknown Phone Unavailable Encounter [facility] Richard(FIN) [id number] Date(s): 06/08/18 - 06/08/18 [facility] [place] [address] [place] [address] [phone] Encounter Diagnosis Pain in right elbow (Final) - 06/14/18 Discharge Disposition: Home or Self Care Attending Physician: Ayush Park MD Referring Physician: Ayush Park MD Vital Signs No data available for this section Problem List Condition Effective Dates Status Health [...] by Discern Expert. Allergies, Adverse Reactions, Alerts No Known Medication Allergies Medications No data available for this section Results No data available for this section Immunizations No data available for this section [...] entered on: 02/15/18 14 beers a week Assessment and Plan No data available for this section
--- OUTSIDE RECORDS SUMMARY | 2019-02-28 06:13 | XMS REPORT | Summary of Care ---
Author Author [facility] Organization [facility] Address Unknown Phone Unavailable Encounter GRACE Ramos(RADHA) [id number] Date(s): 02/15/18 - 02/16/18 [facility] [address] [place] [address]- [phone] Discharge Disposition: Home or Self Care Attending Physician: Thomas Hector MD Admitting Physician: Thomas Hector MD Vital Signs 1 2 3 Most recent to oldest [Reference Range]: 175.26 cm (02/15/18 9:05 PM) Height 97.5 DegF (02/16/18 11:50 AM) 98.5 DegF (02/16/18 11:09 AM) 97.6 DegF (02/16/18 10:59 AM) Temperature Oral [96.4-99.1 DegF] 169/68 mmHg *HI* (02/16/18 11:50 AM) 110/94 mmHg (02/16/18 11:09 AM) 145/82 mmHg *HI* (02/16/18 6:40 AM) Blood Pressure [90-140/60-90 mmHg] 18 BRMIN (02/16/18 11:50 AM) 17 BRMIN (02/16/18 11:09 AM) 16 BRMIN (02/16/18 6:40 AM) Respiratory Rate [14-20 BRMIN] 73 bpm (02/16/18 11:50 AM) 75 bpm (02/16/18 11:09 AM) 62 bpm (02/16/18 6:40 AM) Peripheral Pulse Rate [60-100 bpm] 62.273 kg (02/15/18 9:05 PM) Weight 20.27 m2 (02/15/18 9:05 PM) Body Mass Index Problem List Condition [...] TAB, Q4H, Dosing Weight 62.273, kg, PRN Roger n 1-3/Temp > 100.4 F, Start date: 02/15/18 23:51:00 CDT, Duration: 30 day, Stop date: 03/17/18 23:50:00 CDT Notes: Do not exceed 4 gm/day. (Same as: Tylenol) Start Date: 02/15/18 Stop Date: 02/16/18 Status: Discontinued acetaminophen-hydrocodone 325 mg-5 mg oral tablet 1 tab, Route: PO, Drug Form: TAB, Dosing Weight 62.273, kg, Q4H, PRN Pain Score 4-6, Start date: 02/15/18 23:51:00 CDT, Duration: 30 day, Stop date: 03/17/18 23 :50:00 CDT Notes: (Same as: [place] 325/5) Do not exceed 4gm/day of acetaminophen. Start Date: 02/15/18 Stop Date: 02/16/18 Status: Discontinued docusate 100 mg, 1 cap, Route: PO, Drug form: CAP, BID, Dosing Weight 62.273, kg, Start d ate: 02/16/18 9:00:00 CDT, Duration: 30 day, Stop date: 03/17/18 17:00:00 CDT Notes: (Same as: Colace) (Do Not Crush) Start Date: 02/16/18 Stop Date: 02/16/18 Status: Discontinued Kayexalate 30 gm, 120 mL, Route: PO, Drug form: SUSP, ONCE, Dosing Weight 62.273, kg, Start date: 02/15/18 23:35:00 CDT, Stop date: 02/15/18 23:35:00 CDT Notes: (sodium polystyrene sulfonate 15 gm/60 ml JUSTIN) Shake well before use. (Same as: Kayexalate, SPS) Start Date: 02/15/18 Stop Date: 02/15/18 Status: Completed metoprolol tartrate 25 mg oral tablet 25 mg=1 tab, PO, BID, 0 Refill(s) Start Date: 02/15/18 Status: Ordered NIFEdipine 90 mg oral tablet, extended release 90 mg=1 tab, PO, Daily, 0 Refill(s) Start Date: 02/15/18 Status: Ordered ondansetron 4 mg, 2 mL, Route: IVP, Drug form: INJ, Q6H, Dosing Weight 62.273, kg, PRN Nause a & Vomiting, Start date: 02/15/18 23:51:00 CDT, Duration: 30 day, Stop date: 03/17/18 23:50:00 CDT Notes: (Same as: Abena) MEDICATION WASTE Product Size: 4 mgProduct Was wero: ___ mg Start Date: 02/15/18 Stop Date: 02/16/18 Status: Discontinued Results ELECTROLYTES Most recent to 1 2 oldest [Reference Range]: Sodium Lvl [135-145 146 mEq/L 142 mEq/L mEq/L] *HI* (02/15/18 4:32 PM) (02/16/18 4:19 AM) Potassium Lvl 5.6 mEq/L 5.5 mEq/L [3.5-5.1 mEq/L] *HI* *HI* (02/16/18 4:19 AM) (02/15/18 4:32 PM) Chloride Lvl [95-109 110 mEq/L 107 mEq/L mEq/L] *HI* (02/15/18 4:32 PM) (02/16/18 4:19 AM) CO2 [24-32 mEq/L] 27 mEq/L 26 mEq/L (02/16/18 4:19 AM) (02/15/18 4:32 PM) AGAP [10.0-20.0 14.6 mEq/L 14.5 mEq/L mEq/L] (02/16/18 4:19 AM) (02/15/18 4:32 PM) CHEM PANEL Most recent to 1 2 oldest [Reference Range]: Creatinine Lvl 6.32 mg/dL 6.36 mg/dL [0.50-1.40 mg/dL] *HI* *HI* (02/16/18 4:19 AM) (02/15/18 4:32 PM) eGFR 9 mL/min/1.73m2 1 9 mL/min/1.73m2 2 *NA* *NA* (02/16/18 4:19 AM) (02/15/18 4:32 PM) BUN [7-22 mg/dL] 40 mg/dL 39 mg/dL *HI* *HI* (02/16/18 4:19 AM) (02/15/18 4:32 PM) B/C Ratio [6-25] 6 6 (02/16/18 4:19 AM) (02/15/18 4:32 PM) Glucose Lvl [70-99 183 mg/dL 157 mg/dL mg/dL] *HI* *HI* (02/16/18 4:19 AM) (02/15/18 4:32 PM) Total Protein 6.5 g/dL 7.2 g/dL [6.4-8.4 g/dL] (02/16/18 4:19 AM) (02/15/18 4:32 PM) Albumin Lvl [3.5-5.0 2.3 g/dL 2.6 g/dL g/dL] *LOW* *LOW* (02/16/18 4:19 AM) (02/15/18 4:32 PM) Globulin [2.7-4.2 4.2 g/dL 4.6 g/dL g/dL] (02/16/18 4:19 AM) *HI* (02/15/18 4:32 PM) A/G Ratio [0.7-1.6] 0.5 0.6 *LOW* *LOW* (02/16/18 4:19 AM) (02/15/18 4:32 PM) Calcium Lvl 8.6 mg/dL 8.7 mg/dL [8.5-10.5 mg/dL] (02/16/18 4:19 AM) (02/15/18 4:32 PM) Phosphorus [2.5-4.5 5.6 mg/dL mg/dL] *HI* (02/15/18 4:32 PM) Magnesium Lvl 2.3 mg/dL [1.8-2.4 mg/dL] (02/15/18 4:32 PM) ALT [0-65 unit/L] 17 unit/L 15 unit/L (02/16/18 4:19 AM) (02/15/18 4:32 PM) AST [0-37 unit/L] 20 unit/L 23 unit/L (02/16/18 4:19 AM) (02/15/18 4:32 PM) Alk Phos [39-136 120 unit/L 146 unit/L unit/L] (02/16/18 4:19 AM) *HI* (02/15/18 4:32 PM) Bili Total [0.2-1.3 0.3 mg/dL 0.3 mg/dL mg/dL] (02/16/18 4:19 AM) (02/15/18 4:32 PM) 1Result Comment: The eGFR is calculated [...] tiplied by the estimated BMI. CARDIAC ENZYMES Most recent to 1 2 oldest [Reference Range]: BNP [<=100 pg/mL] 1652 pg/mL *HI* (02/15/18 6:31 PM) IMMUNOLOGY Most recent to 1 2 oldest [Reference Range]: Hep Bs Ag [Negative] Negative *NA* (02/16/18 7:40 AM) HEMATOLOGY Most recent to 1 2 oldest [Reference Range]: WBC [3.7-10.4 K/CMM] 11.0 K/CMM 13.2 K/CMM *HI* *HI* (02/16/18 4:19 AM) (02/15/18 4:32 PM) RBC [4.70-6.10 2.92 M/CMM 3.14 M/CMM M/CMM] *LOW* *LOW* (02/16/18 4:19 AM) (02/15/18 4:32 PM) Hgb [14.0-18.0 g/dL] 8.6 g/dL 9.3 g/dL *LOW* *LOW* (02/16/18 4:19 AM) (02/15/18 4:32 PM) Hct [42.0-54.0 %] 26.7 % 28.8 % *LOW* *LOW* (02/16/18 4:19 AM) (02/15/18 4:32 PM) MCV [80.0-94.0 fL] 91.2 fL 91.8 fL (02/16/18 4:19 AM) (02/15/18 4:32 PM) MCH [27.0-31.0 pg] 29.3 pg 29.7 pg (02/16/18 4:19 AM) (02/15/18 4:32 PM) MCHC [32.0-36.0 32.1 g/dL 32.3 g/dL g/dL] (02/16/18 4:19 AM) (02/15/18 4:32 PM) RDW [11.5-14.5 %] 20.9 % 20.9 % *HI* *HI* (02/16/18 4:19 AM) (02/15/18 4:32 PM) MPV [7.4-10.4 fL] 8.9 fL 8.9 fL (02/16/18 4:19 AM) (02/15/18 4:32 PM) Platelet [133-450 210 K/CMM 231 K/CMM K/CMM] (02/16/18 4:19 AM) (02/15/18 4:32 PM) Segs [45.0-75.0 %] 64.0 % 65.8 % (02/16/18 4:19 AM) (02/15/18 4:32 PM) Lymphocytes 11.9 % 14.1 % [20.0-40.0 %] *LOW* *LOW* (02/16/18 4:19 AM) (02/15/18 4:32 PM) Monocytes [2.0-12.0 14.4 % 12.9 % %] *HI* *HI* (02/16/18 4:19 AM) (02/15/18 4:32 PM) Eosinophils [0.0-4.0 8.0 % 5.6 % %] *HI* *HI* (02/16/18 4:19 AM) (02/15/18 4:32 PM) Basophils [0.0-1.0 1.7 % 1.6 % %] *HI* *HI* (02/16/18 4:19 AM) (02/15/18 4:32 PM) Segs-Bands # 7.0 K/CMM 8.7 K/CMM [1.5-8.1 K/CMM] (02/16/18 4:19 AM) *HI* (02/15/18 4:32 PM) Lymphocytes # 1.3 K/CMM 1.9 K/CMM [1.0-5.5 K/CMM] (02/16/18 4:19 AM) (02/15/18 4:32 PM) Monocytes # [0.0-0.8 1.6 K/CMM 1.7 K/CMM K/CMM] *HI* *HI* (02/16/18 4:19 AM) (02/15/18 4:32 PM) Eosinophils # 0.9 K/CMM 0.7 K/CMM [0.0-0.5 K/CMM] *HI* *HI* (02/16/18 4:19 AM) (02/15/18 4:32 PM) Basophils # [0.0-0.2 0.2 K/CMM 0.2 K/CMM K/CMM] (02/16/18 4:19 AM) (02/15/18 4:32 PM) Immunizations No data available for this section [...] week Assessment and Plan Extracted from: Title: [facility] Author: Gorge Goetz MD Date: 02/16/18 Hospitalist Service Discharge Summary [facility] Hospitalist Service Discharge Summary PATIENT NAME:DINESH DIAZ ATTENDING: GORGE DURBIN JR, MD ADMISSION DATE: 02/15/2018 15:57 DISCHARGE DATE:02/16/2018 17:05 DISCHARGE DIAGNOSIS: Fluid overload, unspecified (E87.70) CONSULTING PHYSICIANS/SERVICES: Mk Walters MDOffice: Service: Nephrology DISCHARGE CONDITION: Fair HISTORY OF PRESENT ILLNESS: Please see admission history and physical for presenting details HOSPITAL COURSE: The patient was admitted to the hospital from care home facility as [facility] The nursing facility made attempts to secure hemodialysis at other facilities however this was not possible therefore he was admitted for hemodialysis. He underwent hemodialysis while in the hospital and was doing well thereafter. Social work was able to secure a chair time for dialysis, however this would not be until 02/21/18 in [place]. 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 Extracted from: Title: Clinical Document Author: Mk Walters MD Date: 02/16/18 Nephrology Note Mk aWlters MD FACP FASN Subjective: Patient seen and examine don HD. Doing well. No new complains. VitalsTmp(F)[id number] 02/16 11:[id number]--- 02/16 11:0998.308270/833205--- 02/16 10:5997.6 02/16 06:4098.244579/8216------ 02/16 03:2597.355821/736189--- 24 Hr Tmax: 98.7F (37.06c) at 02/16 06:40Vital Signs are the last 5 in the past 48 hours. I&ORecordInOutBal 07/1324hr Tot 0 [id number] 07/1224hr Tot 120 0 120 Labs (Last four charted values) WBC H 11.0(FEB 16)H 13.2(FEB 15) Hgb L 8.6(FEB 16)L 9.3(FEB 15) Hct L 26.7(FEB 16)L 28.8(FEB 15) Plt 210(FEB 16)231(FEB 15) Na H 146(FEB 16)142(FEB 15) K H 5.6(FEB 16)H 5.5(FEB 15) CO2 27(FEB 16)26(FEB 15) Cl H 110(FEB 16)107(FEB 15) Cr H 6.32(FEB 16)H 6.36(FEB 15) BUN H 40(FEB 16)H 39(FEB 15) Glucose Random H 183(FEB 16)H 157(FEB 15) Mg 2.3(FEB 15) Phos H 5.6(FEB 15) Ca 8.6(FEB 16)8.7(FEB 15) Scheduled Meds (1): 02/16/18 docusate 100 mg PO BID Unscheduled Meds: None Examination: HEENT; Unremarkable Neck: No Jugular Distension. Chest: CTA Cardiovascular: Regular rate and rhythem, Normal heart sounds and no murmurs. Abdomen: Soft, Non tender non distended. BS Normoactive. Extremeties: No edema. Leg ulcers are healing well. 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 Assessment: Anemia ESRD DM2 PAD Infected foot ulcers Metabolic bone disease Hyperkalemia. Encephalopathy. Now resolved. Plan: - HD on MWF schedule but missed the dialysis. - Seen on HD. Tolerating well. Extracted from: Title: General Admission H&P * Author: Thomas Hector [...]
--- OUTSIDE RECORDS SUMMARY | 2019-02-28 06:13 | XMS REPORT ---
Author Author Jenna Cardenas Organization Unknown Address [address] Phone Unavailable Care Team Providers Care [employer] Worker Name Role Phone Dr. Angel Limon Jr. Unavailable Unavailable Advance directives Directive Description Status Cardiopulmonary Resuscitation CPR Current and Verified Allergies Type Substance Reaction Status propensity to adverse reactions No active allergies found for Resident Problems Problem Effective Dates Problem Status M86.172 OTHER ACUTE OSTEOMYELITIS, LEFT ANKLE AND FOOT 11/24/2017 Active A41.9 SEPSIS, UNSPECIFIED ORGANISM 09/27/2017 Inactive L03.115 CELLULITIS OF RIGHT LOWER LIMB 11/24/2017 Active I96 GANGRENE, NOT ELSEWHERE CLASSIFIED 09/27/2017 Active Z89.412 ACQUIRED ABSENCE OF LEFT GREAT TOE 11/24/2017 Active D63.1 ANEMIA IN CHRONIC KIDNEY DISEASE 11/24/2017 Active M62.81 MUSCLE WEAKNESS (GENERALIZED) 11/25/2017 Active M62.81 MUSCLE WEAKNESS (GENERALIZED) 09/28/2017 Inactive R27.8 OTHER LACK OF COORDINATION 09/27/2017 Inactive N04.9 NEPHROTIC SYNDROME WITH UNSPECIFIED MORPHOLOGIC CHANGES 11/24/2017 Active E13.621 OTHER SPECIFIED DIABETES MELLITUS WITH FOOT ULCER 09/27/2017 Active E08.8 DIABETES MELLITUS DUE TO UNDERLYING CONDITION WITH UNSPECIFIED COMPLICATIONS 09/27/2017 Active N18.6 END STAGE RENAL DISEASE 09/27/2017 Active E11.40 TYPE 2 DIABETES MELLITUS WITH DIABETIC NEUROPATHY, UNSPECIFIED 09/27/2017 Active I10 ESSENTIAL (PRIMARY) HYPERTENSION 09/27/2017 Active Z99.2 DEPENDENCE ON RENAL DIALYSIS 09/27/2017 Active I73.9 PERIPHERAL VASCULAR DISEASE, UNSPECIFIED 09/27/2017 Active I50.20 UNSPECIFIED SYSTOLIC (CONGESTIVE) HEART FAILURE 09/27/2017 Active I25.10 ATHEROSCLEROTIC HEART DISEASE OF [place] CORONARY ARTERY WITHOUT ANGINA PECTORIS 09/27/2017 Active E11.319 TYPE 2 DIABETES MELLITUS WITH UNSPECIFIED DIABETIC RETINOPATHY WITHOUT MACULAR EDEMA 09/27/2017 Active E78.5 HYPERLIPIDEMIA, UNSPECIFIED 09/27/2017 Active Medications Medication Dose Form Route Sig Text Dates Status Magnesium Oxide Tablet 400 MG 1 tablet Tablet Oral Give 1 tablet by mouth two times a day for supplement 11/24/2017 17:00:00 Nifediac CC Tablet Extended Release 24 Hour 60 MG 1 tablet Tablet Extended Release 24 Hour Oral Give 1 tablet by mouth one time a day for htn hold for sbp less than 110 and or HR less than 60 11/25/2017 9:00:00 Atorvastatin Calcium Tablet 40 MG 1 tablet Tablet Oral Give 1 tablet by mouth at bedtime for hld 11/24/2017 21:00:00 NovoLOG Mix 70/30 FlexPen Suspension Pen-injector (70-30) 100 UNIT/ML Suspension Pen-injector Subcutaneous Inject as per sliding scale: if 200 - 250=2 unit; 251 - 300=4 unit; 301 - 350=6 unit; 351 - 400=8 unit, subcutaneously four times a day for dm 11/24/2017 16:00:00 LORazepam Tablet 0.5 MG 1 tablet Tablet Oral Give 1 tablet by mouth two times a day for anxiety hold for sedation 11/24/2017 17:00:00 11/27/2017 14:30:00 Aborted CloNIDine HCl Tablet 0.1 MG 1 tablet Tablet Oral Give 1 tablet by mouth every 6 hours as needed for htn Give for SBP greater than 160 11/24/2017 13:30:00 Iron Tablet 325 (65 Fe) MG 1 tablet Tablet Oral Give 1 tablet by mouth one time a day for anemia 11/25/2017 9:00:00 Levemir FlexPen Solution Pen-injector 100 UNIT/ML 10 unit Solution Pen-injector Subcutaneous Inject 10 unit subcutaneously two times a day for dm 11/25/2017 6:30:00 Losartan Potassium Tablet 50 MG 1 tablet Tablet Oral Give 1 tablet by mouth one time a day for htn hold for SBP less than 110 and or HR less than 60 11/25/2017 9:00:00 HydrALAZINE HCl Tablet 25 MG 1 tablet Tablet Oral Give 1 tablet by mouth every 6 hours for htn Hold for SBP less than 110 and or HR less than 60 11/24/2017 19:00:00 [place] Tablet 10-325 MG 1 tablet Tablet Oral Give 1 tablet by mouth every 6 hours as needed for pain 11/24/2017 13:15:00 Lasix Tablet 40 MG 1 tablet Tablet Oral Give 1 tablet by mouth two times a day for edema 11/25/2017 7:00:00 Coreg Tablet 12.5 MG 1 tablet Tablet Oral Give 1 tablet by mouth every 12 hours for htn hold for SBP less than 110 and or HR less than 60 11/24/2017 21:00:00 Zyvox Tablet 600 MG 1 tablet Tablet Oral Give 1 tablet by mouth every 12 hours for gangrene 11/24/2017 21:00:00 Aspirin Tablet 81 MG 1 tablet Tablet Oral Give 1 tablet by mouth one time a day for afib 11/25/2017 9:00:00 Plavix Tablet 75 MG 1 tablet Tablet Oral Give 1 tablet by mouth one time a day for afib 11/25/2017 9:00:00 Pepcid Tablet 20 MG 1 tablet Tablet Oral Give 1 tablet by mouth one time a day for gerd 11/25/2017 9:00:00 Sevelamer HCl Tablet 800 MG 1 tablet Tablet Oral Give 1 tablet by mouth three times a day for supplement 11/24/2017 17:00:00 Heparin Sodium (Porcine) Solution 5000 UNIT/ML 1 ml Solution Injection Inject 1 ml subcutaneously every 8 hours for prophylactic 11/24/2017 17:00:00 11/27/2017 14:47:00 Aborted Levemir FlexPen Solution Pen-injector 100 UNIT/ML 6 unit Solution Pen-injector Subcutaneous Inject 6 unit subcutaneously every 12 hours for DM 09/27/2017 21:00:00 10/02/2017 12:18:00 Aborted Sevelamer HCl Tablet 800 MG 1 tablet Tablet Oral Give 1 tablet by mouth three times a day for dialysis give with meals 09/28/2017 8:00:00 11/24/2017 11:45:00 Aborted Amiodarone HCl Tablet 400 MG 1 tablet Tablet Oral Give 1 tablet by mouth one time a day for afib 09/28/2017 9:00:00 11/24/2017 11:45:00 Aborted NovoLOG FlexPen Solution Pen-injector 100 UNIT/ML Solution Pen-injector Subcutaneous Inject as per sliding scale: if 70 - 150=0 units s/q; 151 - 200=2 units s/q; 201 - 250=4 units s/q; 251 - 300=6 units s/q; 301 - 350=8 units s/q; 351 - 400=10 units s/q; 401 - 450=12 units s/q and call M.D., subcutaneously before meals and at bedtime for DM 09/27/2017 21:00:00 11/24/2017 11:45:00 Aborted Atorvastatin Calcium Tablet 40 MG 1 tablet Tablet Oral Give 1 tablet by mouth at bedtime for HLD 09/27/2017 21:00:00 11/24/2017 11:45:00 Aborted Furosemide Tablet 20 MG 1 tablet Tablet Oral Give 1 tablet by mouth one time a day for CHF 09/28/2017 9:00:00 11/24/2017 11:45:00 Aborted Ferrous Sulfate Tablet 325 (65 Fe) MG 1 tablet Tablet Oral Give 1 tablet by mouth one time a day for supplement 09/28/2017 9:00:00 11/24/2017 11:45:00 Aborted Aspirin Tablet 81 MG 1 tablet Tablet Oral Give 1 tablet by mouth one time a day for prophylactic AR 09/28/2017 9:00:00 09/28/2017 9:18:00 Aborted HydrALAZINE HCl Tablet 50 MG 1 tablet Tablet Oral Give 1 tablet by mouth every 8 hours for HTN Hold if SBP is less than 110 and HR less than 60 09/28/2017 1:00:00 11/24/2017 11:45:00 Aborted Nifedical XL Tablet Extended Release 24 Hour 30 MG 1 tablet Tablet Extended Release 24 Hour Oral Give 1 tablet by mouth every 12 hours for HTN Hold if SBP is less than 110 and HR less than 60 09/27/2017 21:00:00 11/24/2017 11:45:00 Aborted Carvedilol Tablet 12.5 MG 1 tablet Tablet Oral Give 1 tablet by mouth every 12 hours for HTN Hold if SBP is less than 110 and HR less than 60 09/27/2017 21:00:00 11/24/2017 11:45:00 Aborted Cadexomer Iodine Gel 0.9 % Gel External Apply to Bilateral feet topically one time a day for wounds 09/28/2017 9:00:00 09/29/2017 12:01:00 Aborted Polyethylene Glycol 3350 Kit 17 gram Kit Oral Give 17 gram by mouth one time a day for constipation 09/28/2017 9:00:00 11/24/2017 11:45:00 Aborted Senna-Docusate Sodium Tablet 8.6-50 MG 1 tablet Tablet Oral Give 1 tablet by mouth at bedtime for constipation 09/27/2017 21:00:00 11/24/2017 11:45:00 Aborted Famotidine Tablet 20 MG 1 tablet Tablet Oral Give 1 tablet by mouth one time a day for GERD 09/28/2017 9:00:00 11/24/2017 11:45:00 Aborted Silver Sulfadiazine Cream 1 % Cream External Apply to bilat feet topically one time a day for wounds 09/28/2017 9:00:00 09/29/2017 12:00:00 Aborted Aspirin EC Tablet Delayed Release 81 MG 1 tablet Tablet Delayed Release Oral Give 1 tablet by mouth one time a day for Preventative 09/29/2017 9:00:00 11/24/2017 11:45:00 Aborted Levemir FlexPen Solution Pen-injector 100 UNIT/ML 8 unit Solution Pen-injector Subcutaneous Inject 8 unit subcutaneously every 12 hours for DM 10/02/2017 21:00:00 11/24/2017 11:45:00 Aborted Heparin Sodium (Porcine) Solution 5000 UNIT/ML 1 ml Solution Injection Inject 1 ml subcutaneously every 12 hours for blood thinner for 7 Days 09/27/2017 21:00:00 10/04/2017 8:12:00 Aborted Piperacillin Sod-Tazobactam So Solution Reconstituted 3.375 (3-0.375) GM 1 vial Solution Reconstituted Intravenous Use 1 vial intravenously every 12 hours for sepsis for 8 Days 09/27/2017 21:00:00 10/05/2017 20:59:00 Completed Vancomycin HCl Solution 750 mg Solution Intravenous Use 750 mg intravenously one time a day every Mon, Mon, Fri for sepsis for 8 Days Give MWF, check trough after third dose 09/29/2017 9:00:00 10/04/2017 21:25:00 Aborted Vancomycin HCl Solution 750 mg Solution Intravenous Use 750 mg intravenously one time a day every Mon, Wed, Fri for sepsis until 10/09/2017 23:59 Give MWF, check trough after third dose 10/06/2017 9:00:00 10/09/2017 23:59:00 Completed Results Date Test Result Interpretation Reference Range Status Notes Blood sugar 09/07/2017 Blood sugar mmol/L 09/28/2017 1:32:24 Blood sugar 215.0 mmol/L 09/28/2017 7:47:17 Blood sugar 111.0 mmol/L 09/29/2017 8:21:00 Blood sugar 174.0 mmol/L 09/29/2017 13:43:55 Blood sugar 143.0 mmol/L 09/29/2017 16:23:57 Blood sugar 173.0 mmol/L 09/29/2017 21:15:23 Blood sugar 222.0 mmol/L 09/30/2017 8:17:51 Blood sugar 145.0 mmol/L 09/30/2017 18:29:02 Blood sugar 94.0 mmol/L 09/30/2017 20:29:01 Blood sugar 218.0 mmol/L 10/01/2017 7:10:00 Blood sugar 99.0 mmol/L 10/01/2017 15:58:41 Blood sugar 122.0 mmol/L 10/01/2017 17:57:45 Blood sugar 175.0 mmol/L 10/01/2017 22:05:21 Blood sugar 198.0 mmol/L 10/02/2017 8:31:28 Blood sugar 241.0 mmol/L 10/02/2017 12:07:13 Blood sugar 213.0 mmol/L 10/02/2017 18:40:54 Blood sugar 243.0 mmol/L 10/02/2017 22:14:12 Blood sugar 272.0 mmol/L 10/02/2017 22:14:27 Blood sugar 272.0 mmol/L 10/03/2017 8:25:41 Blood sugar 209.0 mmol/L 10/03/2017 8:26:09 Blood sugar 209.0 mmol/L 10/03/2017 17:54:53 Blood sugar 73.0 mmol/L 10/03/2017 21:21:44 Blood sugar 167.0 mmol/L 10/03/2017 21:22:30 Blood sugar 161.0 mmol/L 10/04/2017 8:03:24 Blood sugar 219.0 mmol/L 10/04/2017 10:49:37 Blood sugar 219.0 mmol/L 10/04/2017 16:07:18 Blood sugar 141.0 mmol/L 10/04/2017 17:50:50 Blood sugar 252.0 mmol/L 10/04/2017 21:19:56 Blood sugar 189.0 mmol/L 10/04/2017 21:20:12 Blood sugar 189.0 mmol/L 10/05/2017 12:36:58 Blood sugar 167.0 mmol/L 10/05/2017 12:37:20 Blood sugar 167.0 mmol/L 10/05/2017 21:05:07 Blood sugar 150.0 mmol/L 10/05/2017 21:05:30 Blood sugar 99.0 mmol/L 10/05/2017 21:05:48 Blood sugar 99.0 mmol/L 10/06/2017 8:43:20 Blood sugar 110.0 mmol/L 10/06/2017 8:43:45 Blood sugar 110.0 mmol/L 10/06/2017 11:48:57 Blood sugar 194.0 mmol/L 10/06/2017 18:07:07 Blood sugar 294.0 mmol/L 10/06/2017 20:31:04 Blood sugar 211.0 mmol/L 10/06/2017 20:31:18 Blood sugar 211.0 mmol/L 10/07/2017 8:02:03 Blood sugar 143.0 mmol/L 10/07/2017 17:02:47 Blood sugar 117.0 mmol/L 10/07/2017 22:08:27 Blood sugar 122.0 mmol/L 10/07/2017 22:08:41 Blood sugar 122.0 mmol/L 10/08/2017 8:11:44 Blood sugar 153.0 mmol/L 10/08/2017 19:24:43 Blood sugar 166.0 mmol/L 10/08/2017 21:03:19 Blood sugar 109.0 mmol/L 10/08/2017 21:03:40 Blood sugar 109.0 mmol/L 10/09/2017 8:28:12 Blood sugar 143.0 mmol/L 10/09/2017 8:29:31 Blood sugar 143.0 mmol/L 10/09/2017 13:01:00 Blood sugar 197.0 mmol/L 10/09/2017 18:01:04 Blood sugar 218.0 mmol/L 10/09/2017 22:09:57 Blood sugar 209.0 mmol/L 10/09/2017 22:10:14 Blood sugar 209.0 mmol/L 10/10/2017 7:43:36 Blood sugar 193.0 mmol/L 10/10/2017 18:15:25 Blood sugar 174.0 mmol/L 10/10/2017 22:29:26 Blood sugar 259.0 mmol/L 10/10/2017 22:29:38 Blood sugar 259.0 mmol/L 10/11/2017 8:15:01 Blood sugar 94.0 mmol/L 10/11/2017 10:18:30 Blood sugar 103.0 mmol/L 10/11/2017 13:39:21 Blood sugar 220.0 mmol/L 11/24/2017 12:26:37 Blood sugar 123.0 mmol/L 11/24/2017 21:11:20 Blood sugar 170.0 mmol/L 11/24/2017 21:11:46 Blood sugar 150.0 mmol/L 11/25/2017 8:26:16 Blood sugar 132.0 mmol/L 11/25/2017 12:46:20 Blood sugar 107.0 mmol/L 11/25/2017 17:09:18 Blood sugar 154.0 mmol/L 11/25/2017 21:45:39 Blood sugar 167.0 mmol/L 11/26/2017 7:40:13 Blood sugar 115.0 mmol/L 11/26/2017 12:01:28 Blood sugar 134.0 mmol/L 11/26/2017 17:04:02 Blood sugar 134.0 mmol/L 11/26/2017 20:47:01 Blood sugar 139.0 mmol/L 11/27/2017 8:17:35 Blood sugar 108.0 mmol/L 11/27/2017 12:27:47 Blood sugar 190.0 mmol/L 11/28/2017 7:48:27 Blood sugar 79.0 mmol/L 11/28/2017 17:38:23 Blood sugar 141.0 mmol/L 11/28/2017 21:24:40 Blood sugar 180.0 mmol/L 11/29/2017 8:02:54 Blood sugar 156.0 mmol/L 11/29/2017 17:15:58 Blood sugar 243.0 mmol/L 11/29/2017 22:22:11 Blood sugar 135.0 mmol/L 11/30/2017 6:30:00 Blood sugar 99.0 mmol/L 11/30/2017 11:00:00 Blood sugar 170.0 mmol/L Vital signs Description Observation Date BODY HEIGHT (MEASURED) 69.0 [in_i] 09/07/2017 BODY WEIGHT (MEASURED) 137.3 [lb_av] 09/07/2017 INTRAVASCULAR SYSTOLIC 139.0 mm[Hg] 09/27/2017 17:20:00 INTRAVASCULAR DIASTOLIC 78.0 mm[Hg] 09/27/2017 17:20:00 BODY TEMPERATURE 98.1 [degF] 09/27/2017 17:20:00 HEART BEAT 56.0 {beats}/min 09/27/2017 17:20:00 RESPIRATION RATE 18.0 /min 09/27/2017 17:20:00 PAIN LEVEL 3.0 {score} 09/28/2017 1:32:53 PAIN LEVEL 3.0 {score} 09/28/2017 1:33:04 PAIN LEVEL 0.0 {score} 09/28/2017 6:59:53 INTRAVASCULAR SYSTOLIC 181.0 mm[Hg] 09/28/2017 10:22:02 INTRAVASCULAR DIASTOLIC 74.0 mm[Hg] 09/28/2017 10:22:02 HEART BEAT 60.0 {beats}/min 09/28/2017 10:22:02 RESPIRATION RATE 18.0 /min 09/28/2017 11:11:09 BODY TEMPERATURE 99.1 [degF] 09/28/2017 11:11:09 HEART BEAT 60.0 {beats}/min 09/28/2017 11:11:09 PAIN LEVEL 0.0 {score} 09/28/2017 11:11:41 BODY WEIGHT (MEASURED) 137.3 [lb_av] 09/28/2017 15:40:00 BODY HEIGHT (MEASURED) 69.0 [in_i] 09/28/2017 15:40:00 INTRAVASCULAR SYSTOLIC 198.0 mm[Hg] 09/28/2017 20:25:49 INTRAVASCULAR DIASTOLIC 78.0 mm[Hg] 09/28/2017 20:25:49 HEART BEAT 60.0 {beats}/min 09/28/2017 20:25:49 INTRAVASCULAR SYSTOLIC 136.0 mm[Hg] 09/29/2017 9:01:57 INTRAVASCULAR DIASTOLIC 60.0 mm[Hg] 09/29/2017 9:01:57 HEART BEAT 54.0 {beats}/min 09/29/2017 9:01:57 PAIN LEVEL 0.0 {score} 09/29/2017 10:00:07 PAIN LEVEL 0.0 {score} 09/29/2017 14:58:42 INTRAVASCULAR SYSTOLIC 125.0 mm[Hg] 09/30/2017 10:39:39 INTRAVASCULAR DIASTOLIC 60.0 mm[Hg] 09/30/2017 10:39:39 HEART BEAT 60.0 {beats}/min 09/30/2017 10:39:39 HEART BEAT 60.0 {beats}/min 09/30/2017 10:46:45 INTRAVASCULAR SYSTOLIC 125.0 mm[Hg] 09/30/2017 10:47:00 INTRAVASCULAR DIASTOLIC 60.0 mm[Hg] 09/30/2017 10:47:00 HEART BEAT 60.0 {beats}/min 09/30/2017 10:47:00 BODY TEMPERATURE 98.3 [degF] 09/30/2017 10:49:43 INTRAVASCULAR SYSTOLIC 130.0 mm[Hg] 09/30/2017 19:27:16 INTRAVASCULAR DIASTOLIC 58.0 mm[Hg] 09/30/2017 19:27:16 BODY TEMPERATURE 98.4 [degF] 09/30/2017 19:27:16 INTRAVASCULAR SYSTOLIC 123.0 mm[Hg] 10/01/2017 9:42:50 INTRAVASCULAR DIASTOLIC 6.0 mm[Hg] 10/01/2017 9:42:50 HEART BEAT 60.0 {beats}/min 10/01/2017 9:42:50 PAIN LEVEL 0.0 {score} 10/01/2017 16:37:20 PAIN LEVEL 0.0 {score} 10/02/2017 8:48:28 INTRAVASCULAR SYSTOLIC 118.0 mm[Hg] 10/02/2017 10:37:38 INTRAVASCULAR DIASTOLIC 96.0 mm[Hg] 10/02/2017 10:37:38 HEART BEAT 60.0 {beats}/min 10/02/2017 10:37:38 PAIN LEVEL 0.0 {score} 10/02/2017 12:04:37 INTRAVASCULAR SYSTOLIC 155.0 mm[Hg] 10/02/2017 21:06:58 INTRAVASCULAR DIASTOLIC 67.0 mm[Hg] 10/02/2017 21:06:58 HEART BEAT 61.0 {beats}/min 10/02/2017 21:06:58 PAIN LEVEL 0.0 {score} 10/02/2017 22:04:35 PAIN LEVEL 0.0 {score} 10/03/2017 6:38:18 HEART BEAT 58.0 {beats}/min 10/03/2017 10:19:19 RESPIRATION RATE 18.0 /min 10/03/2017 11:28:38 INTRAVASCULAR SYSTOLIC 116.0 mm[Hg] 10/03/2017 11:28:38 INTRAVASCULAR DIASTOLIC 52.0 mm[Hg] 10/03/2017 11:28:38 BODY TEMPERATURE 98.7 [degF] 10/03/2017 11:28:38 HEART BEAT 62.0 {beats}/min 10/03/2017 11:28:38 INTRAVASCULAR SYSTOLIC 170.0 mm[Hg] 10/03/2017 20:35:09 INTRAVASCULAR DIASTOLIC 70.0 mm[Hg] 10/03/2017 20:35:09 HEART BEAT 62.0 {beats}/min 10/03/2017 20:35:09 PAIN LEVEL 0.0 {score} 10/03/2017 20:57:21 PAIN LEVEL 0.0 {score} 10/04/2017 10:18:01 BODY WEIGHT (MEASURED) 137.3 [lb_av] 10/04/2017 15:39:00 BODY HEIGHT (MEASURED) 69.0 [in_i] 10/04/2017 15:39:00 PAIN LEVEL 0.0 {score} 10/04/2017 18:05:17 INTRAVASCULAR SYSTOLIC 153.0 mm[Hg] 10/04/2017 20:47:01 INTRAVASCULAR DIASTOLIC 74.0 mm[Hg] 10/04/2017 20:47:01 HEART BEAT 64.0 {beats}/min 10/04/2017 20:47:01 HEART BEAT 60.0 {beats}/min 10/05/2017 9:30:04 INTRAVASCULAR SYSTOLIC 143.0 mm[Hg] 10/05/2017 9:30:22 INTRAVASCULAR DIASTOLIC 60.0 mm[Hg] 10/05/2017 9:30:22 HEART BEAT 60.0 {beats}/min 10/05/2017 9:30:22 RESPIRATION RATE 18.0 /min 10/05/2017 12:38:12 BODY TEMPERATURE 98.3 [degF] 10/05/2017 12:38:12 PAIN LEVEL 0.0 {score} 10/05/2017 12:38:39 RESPIRATION RATE 18.0 /min 10/05/2017 21:04:39 INTRAVASCULAR SYSTOLIC 132.0 mm[Hg] 10/05/2017 21:04:39 INTRAVASCULAR DIASTOLIC 76.0 mm[Hg] 10/05/2017 21:04:39 BODY TEMPERATURE 98.7 [degF] 10/05/2017 21:04:39 HEART BEAT 76.0 {beats}/min 10/05/2017 21:04:39 PAIN LEVEL 0.0 {score} 10/05/2017 21:06:20 PAIN LEVEL 0.0 {score} 10/06/2017 17:37:59 INTRAVASCULAR SYSTOLIC 160.0 mm[Hg] 10/06/2017 20:36:04 INTRAVASCULAR DIASTOLIC 73.0 mm[Hg] 10/06/2017 20:36:04 HEART BEAT 60.0 {beats}/min 10/06/2017 20:36:04 PAIN LEVEL 0.0 {score} 10/07/2017 1:46:09 PAIN LEVEL 0.0 {score} 10/07/2017 10:19:13 PAIN LEVEL 0.0 {score} 10/07/2017 10:19:38 PAIN LEVEL 0.0 {score} 10/07/2017 10:20:14 INTRAVASCULAR SYSTOLIC 160.0 mm[Hg] 10/07/2017 10:36:57 INTRAVASCULAR DIASTOLIC 84.0 mm[Hg] 10/07/2017 10:36:57 HEART BEAT 60.0 {beats}/min 10/07/2017 10:36:57 INTRAVASCULAR SYSTOLIC 142.0 mm[Hg] 10/07/2017 19:42:27 INTRAVASCULAR DIASTOLIC 80.0 mm[Hg] 10/07/2017 19:42:27 BODY TEMPERATURE 98.4 [degF] 10/07/2017 19:42:27 HEART BEAT 65.0 {beats}/min 10/07/2017 19:42:27 INTRAVASCULAR SYSTOLIC 160.0 mm[Hg] 10/07/2017 22:12:20 INTRAVASCULAR DIASTOLIC 70.0 mm[Hg] 10/07/2017 22:12:20 HEART BEAT 60.0 {beats}/min 10/07/2017 22:12:20 PAIN LEVEL 0.0 {score} 10/08/2017 0:19:09 INTRAVASCULAR SYSTOLIC 123.0 mm[Hg] 10/08/2017 20:57:20 INTRAVASCULAR DIASTOLIC 74.0 mm[Hg] 10/08/2017 20:57:20 HEART BEAT 69.0 {beats}/min 10/08/2017 20:57:20 PAIN LEVEL 0.0 {score} 10/09/2017 8:29:55 INTRAVASCULAR SYSTOLIC 127.0 mm[Hg] 10/09/2017 10:05:45 INTRAVASCULAR DIASTOLIC 60.0 mm[Hg] 10/09/2017 10:05:45 HEART BEAT 62.0 {beats}/min 10/09/2017 10:05:45 PAIN LEVEL 0.0 {score} 10/09/2017 18:02:51 INTRAVASCULAR SYSTOLIC 143.0 mm[Hg] 10/09/2017 21:00:58 INTRAVASCULAR DIASTOLIC 69.0 mm[Hg] 10/09/2017 21:00:58 HEART BEAT 60.0 {beats}/min 10/09/2017 21:00:58 INTRAVASCULAR SYSTOLIC 130.0 mm[Hg] 10/10/2017 3:16:34 INTRAVASCULAR DIASTOLIC 64.0 mm[Hg] 10/10/2017 3:16:34 HEART BEAT 66.0 {beats}/min 10/10/2017 3:16:34 PAIN LEVEL 0.0 {score} 10/10/2017 18:21:52 INTRAVASCULAR SYSTOLIC 141.0 mm[Hg] 10/10/2017 20:45:14 INTRAVASCULAR DIASTOLIC 62.0 mm[Hg] 10/10/2017 20:45:14 HEART BEAT 60.0 {beats}/min 10/10/2017 20:45:14 INTRAVASCULAR SYSTOLIC 143.0 mm[Hg] 10/10/2017 22:29:53 INTRAVASCULAR DIASTOLIC 67.0 mm[Hg] 10/10/2017 22:29:53 BODY TEMPERATURE 98.8 [degF] 10/10/2017 22:29:53 HEART BEAT 67.0 {beats}/min 10/10/2017 22:29:53 INTRAVASCULAR SYSTOLIC 136.0 mm[Hg] 10/11/2017 2:06:06 INTRAVASCULAR DIASTOLIC 66.0 mm[Hg] 10/11/2017 2:06:06 HEART BEAT 64.0 {beats}/min 10/11/2017 2:06:06 PAIN LEVEL 0.0 {score} 10/11/2017 13:39:39 BODY WEIGHT (MEASURED) 127.0 [lb_av] 11/24/2017 12:45:00 PAIN LEVEL 0.0 {score} 11/24/2017 14:16:41 INTRAVASCULAR SYSTOLIC 177.0 mm[Hg] 11/24/2017 20:14:48 INTRAVASCULAR DIASTOLIC 73.0 mm[Hg] 11/24/2017 20:14:48 HEART BEAT 79.0 {beats}/min 11/24/2017 20:14:48 PAIN LEVEL 0.0 {score} 11/24/2017 21:12:25 RESPIRATION RATE 20.0 /min 11/24/2017 21:12:35 INTRAVASCULAR SYSTOLIC 143.0 mm[Hg] 11/24/2017 21:12:35 INTRAVASCULAR DIASTOLIC 76.0 mm[Hg] 11/24/2017 21:12:35 BODY TEMPERATURE 97.7 [degF] 11/24/2017 21:12:35 HEART BEAT 80.0 {beats}/min 11/24/2017 21:12:35 RESPIRATION RATE 18.0 /min 11/24/2017 21:13:03 INTRAVASCULAR SYSTOLIC 121.0 mm[Hg] 11/24/2017 21:13:03 INTRAVASCULAR DIASTOLIC 65.0 mm[Hg] 11/24/2017 21:13:03 BODY TEMPERATURE 98.8 [degF] 11/24/2017 21:13:03 HEART BEAT 77.0 {beats}/min 11/24/2017 21:13:03 PAIN LEVEL 0.0 {score} 11/25/2017 4:21:29 INTRAVASCULAR SYSTOLIC 158.0 mm[Hg] 11/25/2017 8:53:25 INTRAVASCULAR DIASTOLIC 78.0 mm[Hg] 11/25/2017 8:53:25 HEART BEAT 68.0 {beats}/min 11/25/2017 8:53:25 INTRAVASCULAR SYSTOLIC 132.0 mm[Hg] 11/25/2017 20:04:43 INTRAVASCULAR DIASTOLIC 78.0 mm[Hg] 11/25/2017 20:04:43 HEART BEAT 70.0 {beats}/min 11/25/2017 20:04:43 PAIN LEVEL 0.0 {score} 11/25/2017 23:46:26 INTRAVASCULAR SYSTOLIC 160.0 mm[Hg] 11/26/2017 10:07:47 INTRAVASCULAR DIASTOLIC 78.0 mm[Hg] 11/26/2017 10:07:47 HEART BEAT 63.0 {beats}/min 11/26/2017 10:07:47 INTRAVASCULAR SYSTOLIC 146.0 mm[Hg] 11/26/2017 21:34:17 INTRAVASCULAR DIASTOLIC 76.0 mm[Hg] 11/26/2017 21:34:17 HEART BEAT 65.0 {beats}/min 11/26/2017 21:34:17 PAIN LEVEL 0.0 {score} 11/27/2017 8:09:46 INTRAVASCULAR SYSTOLIC 208.0 mm[Hg] 11/27/2017 11:52:49 INTRAVASCULAR DIASTOLIC 82.0 mm[Hg] 11/27/2017 11:52:49 HEART BEAT 80.0 {beats}/min 11/27/2017 11:52:49 PAIN LEVEL 0.0 {score} 11/27/2017 15:04:56 PAIN LEVEL 0.0 {score} 11/27/2017 18:18:08 INTRAVASCULAR SYSTOLIC 181.0 mm[Hg] 11/27/2017 20:36:44 INTRAVASCULAR DIASTOLIC 93.0 mm[Hg] 11/27/2017 20:36:44 HEART BEAT 72.0 {beats}/min 11/27/2017 20:36:44 RESPIRATION RATE 20.0 /min 11/27/2017 20:52:24 INTRAVASCULAR SYSTOLIC 152.0 mm[Hg] 11/27/2017 20:52:24 INTRAVASCULAR DIASTOLIC 76.0 mm[Hg] 11/27/2017 20:52:24 BODY TEMPERATURE 97.6 [degF] 11/27/2017 20:52:24 HEART BEAT 74.0 {beats}/min 11/27/2017 20:52:24 RESPIRATION RATE 20.0 /min 11/27/2017 20:53:43 INTRAVASCULAR SYSTOLIC 152.0 mm[Hg] 11/27/2017 20:53:43 INTRAVASCULAR DIASTOLIC 76.0 mm[Hg] 11/27/2017 20:53:43 BODY TEMPERATURE 97.6 [degF] 11/27/2017 20:53:43 HEART BEAT 74.0 {beats}/min 11/27/2017 20:53:43 INTRAVASCULAR SYSTOLIC 144.0 mm[Hg] 11/28/2017 10:41:49 INTRAVASCULAR DIASTOLIC 68.0 mm[Hg] 11/28/2017 10:41:49 HEART BEAT 60.0 {beats}/min 11/28/2017 10:41:49 PAIN LEVEL 0.0 {score} 11/28/2017 17:42:01 PAIN LEVEL 0.0 {score} 11/28/2017 17:42:29 INTRAVASCULAR SYSTOLIC 138.0 mm[Hg] 11/28/2017 20:55:13 INTRAVASCULAR DIASTOLIC 72.0 mm[Hg] 11/28/2017 20:55:13 HEART BEAT 61.0 {beats}/min 11/28/2017 20:55:13 PAIN LEVEL 0.0 {score} 11/29/2017 15:02:49 PAIN LEVEL 0.0 {score} 11/29/2017 15:04:01 INTRAVASCULAR SYSTOLIC 149.0 mm[Hg] 11/29/2017 20:04:21 INTRAVASCULAR DIASTOLIC 84.0 mm[Hg] 11/29/2017 20:04:21 HEART BEAT 66.0 {beats}/min 11/29/2017 20:04:21 PAIN LEVEL 0.0 {score} 11/30/2017 5:44:54 PAIN LEVEL 0.0 {score} 11/30/2017 6:44:18 INTRAVASCULAR SYSTOLIC 144.0 mm[Hg] 11/30/2017 8:37:45 INTRAVASCULAR DIASTOLIC 74.0 mm[Hg] 11/30/2017 8:37:45 HEART BEAT 63.0 {beats}/min 11/30/2017 8:37:45 Immunizations Vaccine Date Status Reason influenza, high dose seasonal, preservative-free 09/28/2017 Refused Resident Refused pneumococcal conjugate vaccine, 13 valent 09/28/2017 Refused Resident Refused tuberculin skin test; purified protein derivative solution, intradermal 09/27/2017 17:30:00 Completed Social History Smoking Status Start Date End Date Unknown if ever smoked 12/01/2017 6:41:17
--- OUTSIDE RECORDS SUMMARY | 2019-02-28 06:14 | XMS REPORT ---
Author Author [facility] Address Unknown Phone Unavailable Care Team Providers Care Manager Coding Name Role Phone ROBERTH LAWRENCE Unavailable Unavailable Payers Payer Name Policy Type Policy Number Effective Date Expiration Date Problems This patient has no known problems. Allergies, Adverse Reactions, Alerts Allergy Name Allergy Type Status Severity Reaction(s) Onset Date Inactive Date Treating Clinician Comments No Known Allergies DA Active U 2018-03-28 00:00:00 Medications This patient has no known medications. Encounters Start Date/Time End Date/Time Encounter Type Admission Type Attending Clinicians Care Facility Care Department Encounter ID 2017-07-05 02:45:07 Inpatient [facility] [id number] 2016-11-15 14:14:00 Inpatient [facility] [id number] 2016-11-13 11:02:26 Inpatient [facility] [id number] 2016-11-12 09:23:22 Inpatient [facility] [id number] 2016-11-11 00:00:00 Inpatient [facility] [id number] 2016-11-10 17:49:09 Inpatient [facility] [id number] 2016-11-10 08:13:17 Inpatient [facility] [id number] 2016-11-10 00:00:00 Inpatient [facility] [id number] 2016-11-09 18:12:31 Inpatient [facility] [id number] 2016-11-09 16:46:32 Inpatient [facility] [id number] 2016-11-09 00:00:00 Inpatient [facility] [id number] 2019-01-22 09:00:00 2019-01-22 09:00:00 Outpatient [id number] 2017-10-03 00:00:00 2017-10-03 00:00:00 Outpatient [facility] [id number] 2017-09-27 00:00:00 2017-09-27 00:00:00 Outpatient [facility] [id number] 2017-09-11 00:00:00 2017-09-11 00:00:00 Outpatient [facility] [id number] 2017-08-30 00:00:00 2017-08-30 00:00:00 Outpatient [facility] [id number] 2017-08-11 00:00:00 2017-08-11 00:00:00 Outpatient [facility] [id number] 2017-08-11 00:00:00 2017-08-11 00:00:00 Outpatient [facility] [id number] 2017-07-28 00:00:00 2017-07-28 00:00:00 Outpatient [facility] [id number] 2017-07-21 00:00:00 2017-07-21 00:00:00 Outpatient [facility] [id number] 2017-07-09 10:58:57 2017-07-09 00:00:00 Inpatient [facility] [id number] 2017-07-07 08:07:30 2017-07-07 00:00:00 Inpatient [facility] [id number] 2017-07-06 16:04:19 2017-07-06 00:00:00 Inpatient [facility] [id number] 2017-07-05 06:37:54 2017-07-05 00:00:00 Inpatient [facility] [id number] 2017-07-04 13:48:25 2017-07-04 13:48:25 Inpatient [facility] [id number] 2017-07-04 11:30:24 2017-07-04 11:30:24 Emergency [facility] [id number] 2017-06-13 00:00:00 2017-06-13 00:00:00 Outpatient [facility] [id number] 2017-06-05 00:00:00 2017-06-05 00:00:00 Outpatient [facility] [id number] 2017-06-02 00:00:00 2017-06-02 00:00:00 Outpatient [facility] [id number] 2017-05-31 12:40:40 2017-05-31 12:40:40 Emergency [facility] [id number] 2017-05-31 11:48:46 2017-05-31 11:48:46 Emergency [facility] [id number] 2017-05-31 00:00:00 2017-05-31 00:00:00 Outpatient [facility] [id number] 2017-05-29 00:00:00 2017-05-29 00:00:00 Outpatient [facility] [id number] 2017-05-25 00:00:00 2017-05-25 00:00:00 Outpatient [facility] [id number] 2017-05-10 16:03:17 2017-05-10 16:03:17 Outpatient [facility] [id number] 2017-05-10 12:10:24 2017-05-10 12:10:24 Outpatient [facility] [id number] 2017-04-18 08:29:18 2017-04-18 08:29:18 Outpatient [facility] [id number] 2017-04-05 00:00:00 2017-04-05 00:00:00 Outpatient [facility] [id number] 2017-03-27 11:40:45 2017-03-27 11:40:45 Emergency [facility] [id number] 2017-03-27 11:24:16 2017-03-27 11:24:16 Emergency [facility] [id number] 2017-03-27 00:00:00 2017-03-27 00:00:00 Outpatient [facility] [id number] 2017-03-03 14:47:49 2017-03-03 14:47:49 Outpatient [facility] [id number] 2017-03-03 00:00:00 2017-03-03 00:00:00 Outpatient [facility] [id number] 2017-03-01 00:00:00 2017-03-01 00:00:00 Outpatient [facility] [id number] 2017-02-23 13:12:14 2017-02-23 13:12:14 Outpatient [facility] [id number] 2017-02-22 00:00:00 2017-02-22 00:00:00 Outpatient [facility] [id number] 2017-02-21 08:19:16 2017-02-21 08:19:16 Outpatient [facility] [id number] 2017-02-06 00:00:00 2017-02-06 00:00:00 Outpatient [facility] [id number] 2017-02-03 16:09:48 2017-02-03 16:09:48 Outpatient [facility] [id number] 2017-02-03 13:55:27 2017-02-03 13:55:27 Outpatient [facility] [id number] 2017-01-30 12:47:12 2017-01-30 12:47:12 Outpatient [facility] [id number] 2017-01-27 15:48:25 2017-01-27 15:48:25 Outpatient [facility] [id number] 2017-01-26 15:21:19 2017-01-26 15:21:19 Outpatient [facility] [id number] 2017-01-26 14:02:52 2017-01-26 14:02:52 Outpatient [facility] [id number] 2017-01-06 00:00:00 2017-01-06 00:00:00 Outpatient [facility] [id number] 2017-01-04 13:07:23 2017-01-04 13:07:23 Outpatient [facility] [id number] 2016-12-22 00:00:00 2016-12-22 00:00:00 Outpatient [facility] [id number] 2016-12-16 11:00:40 2016-12-16 11:00:40 Outpatient [facility] [id number] Results Test Description Test Time Test Comments Text Results Atomic Results Result Comments CHEST 2 VIEWS 2019-02-25 15:11:00 [place] [id number] Patient Name: DINESH DIAZ MR #: [id number] : 1955 Age/Sex: 63/M Req #: [id number] Adm Physician: Ordered by: ROBERTH LAWRENCE MD Report #: [id number] Location: [facility] Room/Bed: Procedure: [id number] DX/CHEST 2 VIEWS Exam Date: 02/25/19 Exam Time: 1410 REPORT STATUS: Signed EXAMINATION: CHEST 2 VIEWS INDICATION: Pre-operative COMPARISON: None FINDINGS: TUBES and LINES: Left IJ tunneled hemodialysis catheter terminates in the right atrium. LUNGS: The lungs are well-inflated. There are postoperative findings of the left lung with surgical clips overlying areas of interstitial scarring at the left upper lung zone. No focal consolidation or pulmonary edema. PLEURA: Small left pleural effusion. No right pleural effusion. No pneumothorax. HEART AND MEDIASTINUM: The cardiomediastinal silhouette is normal in size and contour. BONES AND SOFT TISSUES: No acute fracture or dislocation. UPPER ABDOMEN: No free air under the diaphragm. Surgical clips overlie the left mid abdomen. IMPRESSION: Postoperative changes of the left lung. Small left pleural effusion. No focal consolidation or pulmonary edema. Signed by: Jefferson Ward MD on 02/25/2019 3:14 PM Dictated By: JEFFERSON WARD MD Transcribed By: MARGARET SULLIVAN on 02/25/192 COPY TO: ROBERTH LAWRENCE MD - NM BONE 3 PHASE 2018-09-04 12:25:00 FAX: Reyna Park DPM [phone] [place]: St: REG FAX: Ayush Casillas MD [phone] Name: DINESH DIAZ [facility] : 1955 Age/S: 63/M [address] [facility] Unit #: [id number] Loc: [place] [address] Phys: Reyna Palomo DPM Acct: [id number] Dis Date: Status: REG CLI PHONE #: [phone] Exam Date: 09/04/2018 1115 FAX #: [phone] Reason: M86.672 EXAMS: CPT CODE: [id number] NM BONE 3 PHASE 27108 HISTORY: M86.672. Limited triple phase focal bone scan of both feet: 24.1 mCi of technetium 99m HDP. Images obtained at 3 seconds, 3 minutes and 3 hours postinjection of both feet. COMPARISON: Bilateral feet from October 30, 2017 and left side from March 28, 2018. Area of intense uptake on all 3 phases in the medial margin distal 1st metatarsal bone region. Intense uptake as well along the transmetatarsal resection on the left side. These findings suggest osteomyelitis. IMPRESSION: FINDINGS suspicious for osteomyelitis along the right distal 1st metatarsal bone region and along the transme tatarsal resection on the left side. at 5722 Reported and signed by: Zacarias Miguel M.D. CC: Reyna Palomo DPM; Ayush Park MD Technologist: ENVA MODI Trnscrd Date/Time/By: 09/04/2018 (0844) : By: [email or web address] Orig Print D/T: S: 09/04/2018 (9070) PAGE 1 Signed Report GLUBED 2018-08-23 15:29:00 GLUBED (test code=GLUBED) 136 mg/dL 74-106 Performed by certified sole leather cutting machine operator at [facility] [id number] 13:17:00 RUN DATE: 04/06/18 [place] - Lab PAGE 1 RUN TIME: 1317 Specimen Inqui ry RUN USER: INTERFACE PATIENT: DINESH DIAZ ACCT #: V [id number] LOC: [facility] U #: [id number] AGE/SX: 62/M ROOM: [facility] RE03/28/18[facility] DR: Dinesh Mensah MD : 55 BED: A DIS: STATUS: ADM IN TLOC: SPEC #: [id number] RECD: 04/03/18 STATUS: SOU RE #: [id number] DONNA: 04/03/[address] [facility] [address]: Ruth Jensen PM ENTERED: 04/03/18 SP TYPE: BONE OTHR DR: Mk Campos MD, Sarita DPMORDERED: GROSS COPIES TO: Mk Walters MD [address] [facility] [address] [place] [address] NEW FAX NO PROVIDED 2011 Ruth Jensen DPM [id number] [address] PROCEDURES: GROSS (04/06/18-1246) TISSUES: LEFT FOOT - FORE FOOT BONE BX CLINICAL HISTORY COLLECTION DATE: 04/03/18 [facility] FINAL DIAGNOSIS Left forefoot, transmetatarsal amputation: SKIN WITH ULCERATION, EXTENSIVE GANGRENOUS NECROSIS AND ABSCESS FORMATION, THIRD AND FOURTH DIGITS UNDERLYING BONE WITH NECROSIS AND ACU TE INFLAMMATION CONSISTENT WITH ACUTE OSTEOMYELITIS BONY MARGINS, NO OSTEOMYELITIS IDENTIFIED STEPHANIE/sm [place] [address] CONTINUED ON NEXT PAGE RUN DATE: 04/06/18 [facility] PAGE 2 RUN TIME: 1317 Specimen Inquiry RUN USER: INTERFACE SPEC #: [id number] PATIENT: DINESH DIAZ #[id number] (Continue d) MACROSCOPIC The specimen is received in formalin la beled with the patient's name and identified as "bone bx L foot". It consists of a left transmetatarsal amputation. The first, second, and fifth digits diallo ve been previously amputated. Sutures are present at the site. The third and fourth digits are present. The third digit is blackened and hardened. The fourth digit contains a toenail that measures 1.2 X 1.0 cm. There is a large area of ulceration that is also blackened and necrotic appearing on the bottom of the foot that measures 5.5 cm in greatest diameter. The specimen measures 6.0 cm from third distal toe digit to proximal resection margin, 8.5 cm from medial to lateral, and 3.8 cm in A/P diameter. The first, second, third, and fourth bony digit resection margins are identified. Soft tissue is submitted in cassette (1A). Underlying bone from the third metatarsal digit is submitte d in cassette (1B). The specimen will be placed in decalcification solution p rior to further sectioning. Section code: 1A- gangrenous areas from thi rd toe digit, bottom of fourth toe digit, and ulceration at the sole of the fo ot; 1B- sections of metatarsal bone from third digit for decalcification; 1C- sections of bone from the third third metatarsal bone; 1D- bony margin of four th digit en face; 1E- bony margin of third and second digit; 1F- bony margin o f 1st digit. GROSS PERFORMED AT [facility] [address] [place] [address] [phone])[phone] MICRO SCOPIC MICROSCOPIC PERFORMED AT [facility] All of the stains, i ncluding any controls performed, stain appropriately. [facility] [address] [place] [address] [phone])[phone] PERFORMING SITE Diagnosis performed at: [facility], [place] [address] [place] [address] CONTINUED ON NEXT PAGE RUN DATE: 04/06/18 [place] - Lab PAGE 3 RUN TI ME: 1317 Specimen Inquiry RUN USER : INTERFACE --SPEC #: [id number] PATIENT: DINESH DIAZ #[id number] (Continued) Signed SIGNATURE ON FILE O Opal Eddy 04/06/18 1317 END OF REPORT
--- OUTSIDE RECORDS SUMMARY | 2019-02-28 06:14 | XMS REPORT | Clinical Summary ---
Author Author [facility] Organization [facility] Address Unknown Phone Unavailable Care Team Providers Care Retail Mortgage Banker Name Role Phone Mason Laws MD PCP Allergies No Known Allergies Current Medications Prescription Sig. Disp. Refills Start End Date Status Date blood glucose test Use 3 times daily (before 100 Each 11/25/19 Active stripsIndications: Type 2 meals). 17 diabetes, uncontrolled, with ulcer of toe lancets 28 by MISCELLANEOUS route 3 100 Each 11/25/19 Active gaugeIndications: Type 2 times daily. 17 diabetes, uncontrolled, with cellulitis of foot blood glucose Use as directed.. 1 Kit 0 11/25/19 Active meterIndications: Type 2 17 diabetes, uncontrolled, with cellulitis of foot Cholecalciferol, Vitamin Take 2 tablets by mouth 60 tablet 0 11/25/19 Active D3, 1,000 unit daily. 17 TabIndications: Vitamin D deficiency pen needle, diabetic Inject under the skin 3 3 Box 6 01/27/20 Active (NOVOFINE) 30 gauge x times daily Use as 17 1/3" needlesIndications: directed. Inadequately controlled diabetes mellitus dexlansoprazole Take 1 capsule by mouth 90 capsule 1 01/27/20 Active (DEXILANT) 30 mg delayed daily. 17 release capsuleIndications: Nausea and vomiting, intractability of vomiting not specified, unspecified vomiting type, Gastroesophageal reflux disease, esophagitis presence not specified insulin NPH (NOVOLIN N, Inject 10 units in the 30 mL 02/22/20 Active HUMULIN N) 100 unit/mL morning and 20 units in 17 injectionIndications: the evening. Type 2 diabetes mellitus with complication, with long-term current use of insulin INSULIN SYRINGE 0.5mL Use to inject medication 100 Each 1 07/18/20 Active 30GX5/16" (MONOJECT 2 times daily. Use a new 17 ULTRACOMFORT INSULIN SYR syringe each time. 0.5ML 30GX5/16") syringe-needleIndications : Type 2 diabetes mellitus with complication, with long-term current use of insulin clotrimazole (LOTRIMIN) 1 Apply 1-2 drops to 30 mL 3 04/18/20 Active % external affected nails 2 times a 17 solutionIndications: day. Use a nail file to Onychomycosis keep nails thin. Treatment may take up to 1 year. blood glucose meter Use as directed.. 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 17 tabletIndications: Squamous cell carcinoma of skin of trunk atorvastatin (LIPITOR) 40 Take 2 tablets by mouth 90 tablet 1 07/12/20 Active mg tabletIndications: at bedtime nightly. 17 Type 2 diabetes, uncontrolled, with cellulitis of foot hydrALAZINE (APRESOLINE) Take 1 tablet by mouth 3 240 tablet 1 07/12/20 Active 25 mg tabletIndications: times daily. 17 Essential hypertension bumetanide (BUMEX) 1 mg Take 1 tablet by mouth 2 30 tablet 1 07/12/20 Active tabletIndications: CKD times daily. 17 (chronic kidney disease) stage 3, GFR 30-59 ml/min, Acute on chronic combined systolic and diastolic CHF, NYHA class 3 esomeprazole (NEXIUM) 40 Take 1 Packet by mouth 30 Each 0 11/25/19 01/27/20 Discontin mg packetIndications: every morning (before 17 17 ued Gastroesophageal reflux breakfast). disease, esophagitis presence not specified hydrALAZINE (APRESOLINE) Take 2 tablets by mouth 4 240 tablet 1 11/25/19 01/27/20 Discontin 25 mg tabletIndications: times daily. 17 17 ued Essential hypertension insulin NPH (NOVOLIN N, Inject 12 Units under the 20 mL 0 11/25/19 01/27/20 Discontin HUMULIN N) 100 unit/mL skin every morning for 90 17 17 ued injectionIndications: days. Type 2 diabetes, uncontrolled, with ulcer of toe insulin NPH (NOVOLIN N, Inject 7 Units under the 20 mL 0 11/25/19 01/27/20 Discontin HUMULIN N) 100 unit/mL skin every evening. 17 17 ued injectionIndications: Type 2 diabetes, uncontrolled, with ulcer of toe traMADol (ULTRAM) 50 mg Take 1 tablet by mouth 4 30 tablet 0 11/25/19 01/27/20 Discontin tabletIndications: Pain times daily as needed for 17 17 ued Pain. amLODIPine (NORVASC) 10 Take 1 tablet by mouth 30 tablet 1 11/25/19 07/12/20 Discontin mg tabletIndications: daily. 17 17 ued Essential hypertension aspirin (ASPIRIN) 81 mg Chew and swallow 1 tablet 30 tablet 1 11/25/19 07/12/20 Discontin chewable by mouth daily. 17 17 ued tabletIndications: Squamous cell carcinoma of skin of trunk atorvastatin (LIPITOR) 40 Take 1 tablet by mouth at 30 tablet 1 11/25/19 02/22/20 Discontin mg tabletIndications: bedtime nightly. 17 17 ued Thalamic infarct, acute INS SYRINGE/NEEDLE Use as Directed.. 1 Box 1 11/25/19 01/27/20 Discontin .5CC/28G 1/2 mL 28 gauge 17 17 ued syringeIndications: Cervical stenosis of spinal canal carvedilol (COREG) 25 mg Take 1 tablet by mouth 2 60 tablet 3 12/17/19 01/27/20 Discontin tabletIndications: times daily (with meals) 17 17 ued Essential hypertension for 90 days. insulin aspart (NOVOLOG Twice daily under skin 5 Pen 0 01/27/20 02/22/20 Discontin FLEXPEN) 100 unit/mL if sugars 201-250 - 17 17 ued penIndications: Inject 2 units ; if Inadequately controlled sugars 251-300 - Inject 4 diabetes mellitus unit; if sugars 301-350 - Inject 6 units; If sugars 351-500 - inject 8 units; >500 call clinic. insulin detemir (LEVEMIR Inject 5 Units under the 5 Pen 1 01/27/20 02/22/20 Discontin FLEXTOUCH) 100 unit/mL (3 skin daily for 184 days. 17 17 ued mL) PenIndications: Inadequately controlled diabetes mellitus pen needle, diabetic Inject under the skin 4 3 Box 6 01/27/20 01/27/20 Discontin (NOVOFINE) 30 gauge x times daily Use as 17 17 ued 1/3" needlesIndications: directed. Inadequately controlled diabetes mellitus hydrALAZINE (APRESOLINE) Take 3 tablets by mouth 3 240 tablet 1 01/27/20 07/12/20 Discontin 25 mg tabletIndications: times daily. 17 17 ued Essential hypertension carvedilol (COREG) 25 mg Take 1 tablet by mouth 2 180 tablet 1 01/27/20 04/26/20 tabletIndications: times daily (with meals) 17 17 Essential hypertension ondansetron (ZOFRAN) 4 mg Take 1 tablet by mouth 20 tablet 0 01/27/20 02/04/20 tabletIndications: Nausea every 8 hours as needed 17 17 and vomiting, for up to 7 days for intractability of Nausea. vomiting not specified, unspecified vomiting type atorvastatin (LIPITOR) 40 Take 1 tablet by mouth at 90 tablet 1 02/22/20 07/12/20 Discontin mg tabletIndications: bedtime nightly. 17 17 ued Thalamic infarct, acute benzonatate (TESSALON Take 1 capsule by mouth 3 20 capsule 0 03/27/20 04/03/20 PERLES) 100 mg capsule times daily as needed for 17 17 up to 7 days for Cough. furosemide (LASIX) 40 mg Take 1 tablet by mouth 7 tablet 0 05/31/20 05/31/20 Discontin tablet daily for 7 days. 17 17 ued furosemide (LASIX) 40 mg Take 1 tablet by mouth 7 tablet 0 05/31/20 05/31/20 Discontin tablet daily for 7 days. 17 17 ued furosemide (LASIX) 40 mg Take 1 tablet by mouth 7 tablet 0 05/31/20 06/08/20 tablet daily for 7 days. 17 17 tamsulosin (FLOMAX) 0.4 Take 1 capsule by mouth 30 capsule 1 07/12/20 08/11/19 mg extended release daily for 30 days. 17 18 capsuleIndications: CKD (chronic kidney disease) stage 3, GFR 30-59 ml/min, Acute on chronic combined systolic and diastolic CHF, NYHA class 3, H/O: urethral stricture isosorbide mononitrate Take 1 tablet by mouth 30 tablet 1 07/12/20 08/11/19 (IMDUR) 30 mg extended every morning for 30 17 18 release days. tabletIndications: CKD (chronic kidney disease) stage 3, GFR 30-59 ml/min, Acute on chronic combined systolic and diastolic CHF, NYHA class 3, Essential hypertension ferrous sulfate 325 mg Take 1 tablet by mouth 30 tablet 1 07/12/20 08/11/19 (65 mg iron) daily for 30 days. 17 18 tabletIndications: CKD (chronic kidney disease) stage 3, GFR 30-59 ml/min, Acute on chronic combined systolic and diastolic CHF, NYHA class 3 ascorbic acid, vitamin C, Take 1 tablet by mouth 30 tablet 1 07/12/20 08/11/19 250 mg tabletIndications: daily for 30 days. 17 18 CKD (chronic kidney disease) stage 3, GFR 30-59 ml/min, Acute on chronic combined systolic and diastolic CHF, NYHA class 3 carvedilol (COREG) 25 mg Take 1 tablet by mouth 2 60 tablet 1 07/12/20 08/11/19 tabletIndications: CKD times daily for 30 days. 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, NYHA class 3 and CKD stage 4 History of CVA (cerebrovascular accident) 04/25/2016 Type 2 diabetes, uncontrolled, with ulcer of toe 11/09/2015 Uncontrolled type 2 diabetes mellitus with microalbuminuric diabetic 08/13/2015 nephropathy Hyperlipidemia 07/16/2015 H/O: urethral stricture 07/23/2010 HTN (hypertension) 07/23/2010 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 associated with type 2 diabetes mellitus Right upper extremity numbness Proteinuria Vitamin D deficiency Acute kidney injury superimposed on chronic kidney disease Impaired mobility and activities of daily living Non compliance w medication regimen Stenosis, cervical spine CKD (chronic kidney disease) stage 3, GFR 30-59 ml/min Urinary obstruction Resolved Problems Problem Noted Date Resolved Date Anasarca 07/04/2017 07/11/2017 SOB (shortness of breath) 05/31/2017 07/11/2017 Lightheadedness 04/29/2016 07/05/2017 Thalamic infarct, sub-acute 04/27/2016 07/05/2017 Papillary adenocarcinoma of left kidney 04/25/2016 07/05/2017 Moderate nonproliferative retinopathy of both eyes, associated with type 2 08/13/2015 07/05/2017 diabetes mellitus Cellulitis of toe of left foot 08/13/2015 01/26/2017 AK (actinic keratosis) 07/16/2015 07/05/2017 TIA (transient ischemic attack) 10/14/2010 07/05/2017 Squamous cell carcinoma of skin of trunk, left chest 09/29/2010 07/05/2017 Overview: 07/15/10 Biopsy of left chest wall mass; PATH: Invasive squamous carcinoma 08/19/10 Green - [address] noted in axilla, FNA requested; could not be performed; PLAN: image directed biopsy 09/29/10 Tumor Board discussion - no preliminary US of the axilla necessary, can go directly to IR directed bx. 10/01/10 U/S of axilla performed (had been already requested)--normal appearing 1cm LN in axilla. We will defer percutaneous biopsy and plan to perform SLNBx in OR. Light headedness 07/05/2017 Orthostatic hypotension 07/05/2017 Renal cell carcinoma 07/05/2017 Cerebrovascular accident (CVA) 07/05/2017 Pain 07/09/2017 Vertigo 07/09/2017 Encounters Date Type Specialty Care Team Description 10/03/2017 Office Visit Cardiology Frank Deras, NO SHOW ENCOUNTER MD Mateo (Primary Dx) 08/11/2017 Office Visit Neurosurgery Alberto Madrid MD NO SHOW ENCOUNTER (Primary Dx) 08/04/2017 Pharmacy Visit 08/03/2017 Pharmacy Visit 08/02/2017 Pharmacy Visit 08/01/2017 Pharmacy Visit 07/14/2017 Telephone Social Work Madeline Talley Transitional Planning 07/14/2017 Pharmacy Visit 07/13/2017 Telephone Social Work Domenica Ren [facility] (chronic kidney - Encounter Fellow(MD) disease) stage 3, GFR 07/12/2017 Kp Faith MD 30-59 ml/min (Primary Thiago Mayer MD Dx); History of renal cell cancer; Acute on chronic combined systolic and diastolic CHF, NYHA class 3; SOB (shortness of breath); Squamous cell carcinoma of skin of trunk, left chest; Thalamic infarct, sub-acute; Type 2 diabetes, uncontrolled, with cellulitis of foot; Essential hypertension; H/O: urethral stricture 06/02/2017 Office Visit Neurosurgery Alberto Madrid MD NO SHOW ENCOUNTER (Primary Dx) 06/01/2017 Pharmacy Visit 05/31/2017 Emergency Emergency Medicine Elif Taylor MD SOB (shortness of breath) (Primary Dx); CKD (chronic kidney disease) stage 3, GFR 30-59 ml/min 05/25/2017 Clinical Case Social Work Ligia Parada RN Mgt 05/10/2017 Nurse Only Ophthalmology Haily Ahumada 05/10/2017 Office Visit Ophthalmology Rita East, Moderate nonproliferative Physician diabetic retinopathy of both eyes associated with type 2 diabetes mellitus, macular edema presence unspecified (Primary Dx); Combined forms of age-related cataract of both eyes 05/09/2017 Telephone Gastroenterology Callie Sheppard Colon Cancer Screening (Education on FIT completion ) 04/18/2017 Office Visit Podiatry Mason Laws MD Callus (Primary Dx); Ludivina Cooley, DPM Onychomycosis; Diabetes mellitus type 2 with neurological manifestations 04/18/2017 Pharmacy Visit 03/27/2017 Emergency Emergency Medicine Prabhakar Diop MD Cough (Primary Dx); Pleural effusion 03/27/2017 Same Day [facility] eNna Gongora NP Cough (Primary Dx); Shortness of breath; Acute pharyngitis, unspecified etiology; Type 2 diabetes mellitus with complication, with long-term current use of insulin 03/03/2017 Office Visit Dentistry Radha Salas, DDS Visit for dental SeymourNorma clemens, DDS examination (Primary Dx) 03/03/2017 Office Visit Physical Medicine and RaulRisa escamilla MD NO SHOW ENCOUNTER Rehab (Primary Dx) 02/21/2017 Office Visit [facility] Tessie Arias MD Thalamic infarct, sub-acute (Primary Dx); Essential hypertension; CKD (chronic kidney disease) stage 3, GFR 30-59 ml/min; Papillary adenocarcinoma of left kidney; Encounter to discuss test results; Type 2 diabetes mellitus with complication, with long-term current use of insulin; Screening for colon cancer; Immunization due; Anemia of chronic disease; PVD (peripheral vascular disease); Foot ulcer due to secondary DM 02/21/2017 Pharmacy Visit 02/03/2017 [facility] Radiology Mason Laws MD S/P cervical spinal Encounter fusion 02/03/2017 Office Visit Neurosurgery Alberto Madrid MD S/P cervical spinal Misty Peter NP fusion (Primary Dx) 01/30/2017 Office Visit Ophthalmology Iris, Lien, OD Moderate nonproliferative diabetic retinopathy of both eyes associated with type 2 diabetes mellitus, macular edema presence unspecified (Primary Dx); Hypertensive retinopathy, bilateral; Combined forms of age-related cataract of both eyes; Refractive error 01/27/2017 [facility] Radiology Mason Laws MD Nausea and vomiting, Encounter intractability of vomiting not specified, unspecified vomiting type 01/27/2017 Pharmacy Visit 01/26/2017 Office Visit [facility] Mason Laws MD Inadequately controlled Argenis King MD diabetes mellitus (Primary Dx); Retinopathy; Essential hypertension; CKD (chronic kidney disease) stage 3, GFR 30-59 ml/min; Anemia, unspecified; Screening for colorectal cancer; Nausea and vomiting, intractability of vomiting not specified, unspecified vomiting type; Gastroesophageal reflux disease, esophagitis presence not specified; Actinic keratosis 01/26/2017 Pharmacy Visit after 01/18/2017 Immunizations Name Dates Previously Given Next Due Herpes Zoster Vaccine In 02/21/2017 Clinic Influenza Vaccine 07/12/2017 (Deferred: Patient Refused) PNEUMOCOCCAL 23-VALPS 10/03/2016 VACCINE 25 MCG/0.5 ML INJECTION PPV 23 (Pneumococcal 02/28/2012 Polysaccharide 23 Valent) Pneumococcal 13-valent 08/13/2015 (Deferred: Patient already had this conj 0.5 mL injection immunization - [facility]) TDap (Tetanus Toxoid, 02/28/2012 Reduced Diphtheria Toxoid And Acellular Pertussis, Absorbed) Tetanus Toxoid 02/21/2014 <Unspecified> Family History Medical History Relation Name Comments Diabetes Father Arthritis Mother Diabetes Mother Heart Mother Hypertension Mother Alcohol/Drug Sister Relation Name Status Comments Father Mother Sister Social History Tobacco Use Types Packs/Day Years Used Date Never Smoker Smokeless Tobacco: Never Used Tobacco Cessation: Counseling Given: Yes Alcohol Use Drinks/Week oz/Week Comments Yes 10 Cans of 5.0 6 pack of beer a week beer Sex Assigned at Date Recorded Not on file Last Filed Vital Signs Vital Sign Reading Time Taken Blood Pressure 133/81 07/12/2017 8:25 AM NANOSCIENCE TECHNICIAN Pulse 57 07/12/2017 8:25 AM NANOSCIENCE TECHNICIAN Temperature 36.6 C (97.8 F) 07/12/2017 8:25 AM NANOSCIENCE TECHNICIAN Respiratory Rate 20 07/12/2017 8:25 AM NANOSCIENCE TECHNICIAN Oxygen Saturation 95% 07/09/2017 9:32 AM NANOSCIENCE TECHNICIAN Inhaled Oxygen - - Concentration Weight 73.4 kg (161 lb 12.8 oz) 07/12/2017 4:48 AM NANOSCIENCE TECHNICIAN Height 175.3 cm (5' 9") 07/05/2017 4:07 AM NANOSCIENCE TECHNICIAN Body Mass Index 23.89 07/12/2017 4:48 AM NANOSCIENCE TECHNICIAN Plan of Treatment Health Maintenance Due Date Last Done Comments COLORECTAL CANCER SCRN 2005 ANNUAL (FIT/FOBT) AGE 50 TO 75 DM FOOT EXAM (YEARLY) 03/27/2018 03/27/2017 DM RETINAL EXAM (YEARLY) 05/10/2018 05/10/2017, 01/30/2017, 11/01/2016, Additional history exists DM HGBA1C (YEARLY) 07/05/2018 07/05/2017, 01/26/2017, 11/16/2016, Additional history exists DM MICROALBUMIN URINE 07/11/2018 07/11/2017, 07/11/2017, 07/10/2017, SCRN (YEARLY) Additional history exists Implants Implanted Type Area Metal Sorter Device Expiration Model / Identifier Date Serial / Lot Implant Gu Stent Kwart Ureteral 6fr Stent [employer] 06/26/2018 [id number] / X 26cm [id number] - [id number] / Implanted: Qty: 1 on 10/14/2015 by [id number] Estrella Moss MD [employer] White Set Posterior: Implanted: Qty: 1 on 11/10/2016 by Neida Esteves [place], ResidentDE Cervical Dbx Putty, 10cc Posterior: MUSCULOSKELETAL 06/16/2018 [id number] / Implanted: Qty: 1 on 11/10/2016 by Spine, TRANSPLANT FOU [id number] Nyla Carrasquillo [facility] Cervical [id number] / Dbx Putty, 10cc Posterior: MUSCULOSKELETAL 05/03/2018 [id number] / Implanted: Qty: 1 on 11/10/2016 by Spine, TRANSPLANT FOU [id number] Nyla Carrasquillo [facility] Cervical [id number] / Cancellous Chips, 15cc Posterior: MUSCULOSKELETAL 04/23/2019 [id number] / Implanted: Qty: 1 on 11/10/2016 by Spine, TRANSPLANT FOU [id number] Nyla Carrasquillo [facility] Cervical [id number] / Results * GLUCOSE POC (07/12/2017 8:02 AM) Only the most recent of 37 results within the time period is included. Component Value Ref Range Glucose POC 118 (H) 74 - 106 mg/dL Specimen Performing Laboratory [facility] * BASIC METABOLIC PANEL (07/12/2017 6:06 AM) Only the most recent of 7 results within the time period is included. Component Value Ref Range CO2 27 21 - 32 mmol/L Chloride 103 98 - 107 mmol/L Potassium 4.1 3.50 - 5.10 mmol/L Sodium 139 136 - 145 mmol/L Glucose 131 (H) 70 - 99 mg/dL Urea Nitrogen 81 (H) 7 - 18 mg/dL Creatinine 3.91 (H) 0.60 - 1.30 mg/dL Anion Gap 9 Calcium 8.0 (L) 8.50 - 10.20 mg/dL GFR, Estimated 16 mL/min/1.73 m2 GFR, Estim, Afr-Am 19 mL/min/1.73 m2 Specimen Performing Laboratory Blood MISYS * COMPREHENSIVE METABOLIC PANEL(DBIL NOT INCLUDED) (07/11/2017 4:24 AM) Only the most recent of 3 results within the time period is included. Component Value Ref Range Albumin 2.4 (L) 3.4 - 5.0 g/dL Calcium 7.8 (L) 8.50 - 10.20 mg/dL CO2 30 21 - 32 mmol/L Chloride 102 98 - 107 mmol/L Creatinine 4.05 (H) 0.60 - 1.30 mg/dL Glucose 108 (H) 70 - 99 mg/dL Alk Phos 112 45 - 117 U/L Potassium 4.8 3.50 - 5.10 mmol/L Sodium 138 136 - 145 mmol/L ALT 24 12 - 78 U/L AST 19 15 - 37 U/L Urea Nitrogen 66 (H) 7 - 18 mg/dL T Bilirubin 0.4 0.2 - 1.0 mg/dL T Protein 5.5 (L) 6.4 - 8.2 g/dL GFR, Estimated 15 mL/min/1.73 m2 GFR, Estim, Afr-Am 18 mL/min/1.73 m2 Anion Gap 6 Specimen Performing Laboratory Blood MISYS * CRP, HIGH SENS (07/11/2017 4:24 AM) Component Value Ref Range CRP, high sens 0.835 (H) 0.000 - 0.300 mg/dL Specimen Performing Laboratory Blood MISYS * SED RATE (07/11/2017 4:24 AM) Component Value Ref Range Sed Rate 31 (H) <20 mm/Hr Specimen Performing Laboratory Blood [facility]IS[facility] * PHOSPHORUS (07/11/2017 4:24 AM) Only the most recent of 4 results within the time period is included. Component Value Ref Range Phosphorus 5.1 (H) 2.5 - 4.9 mg/dL Specimen Performing Laboratory Blood MISYS * MAGNESIUM (07/11/2017 4:24 AM) Only the most recent of 4 results within the time period is included. Component Value Ref Range Magnesium 2.2 1.8 - 2.4 mg/dL Specimen Performing Laboratory Blood MISYS * CBC/DIFF (07/11/2017 4:24 AM) Only the most recent of 6 results within the time period is included. Component Value Ref Range WBC 9.9 4.5 - 12.0 K/uL RBC 3.82 (L) 4.60 - 6.20 M/uL Hemoglobin 11.3 (L) 14.0 - 18.0 g/dL Hematocrit 36.6 (L) 40.0 - 54.0 % MCV 96 (H) 82 - 92 fL MCH 29.6 27.0 - 31.0 pg MCHC 30.9 (L) 32.0 - 36.0 g/dL RDW 47.1 (H) 35.1 - 43.9 fL Platelet 179 150 - 400 K/uL Mean Platelet Volume 11.2 9.4 - 12.4 fL Percent NRBC 0.0 Absolute NRBC 0.00 Neutrophil 70.9 (H) 34.0 - 67.9 % Lymphocyte 11.8 (L) 21.8 - 50.0 % Monocyte 14.9 (H) 5.3 - 12.0 % Eosinophil 1.6 0.8 - 5.0 % Basophil 0.3 0.2 - 1.2 % Pct Immat Gran 0.5 0.0 - 0.5 Neutrophil, Abs 7.03 (H) 1.78 - 5.36 K/uL Lymphocyte, Abs 1.17 (L) 1.32 - 3.57 K/uL Monocyte, Abs 1.48 (H) 0.30 - 0.82 K/uL Eosinophil, Abs 0.16 0.04 - 0.54 K/uL Basophil, Abs 0.03 0.01 - 0.08 K/uL Absol Immat Gran 0.05 (H) 0.00 - 0.03 K/uL Specimen Performing Laboratory Blood MISYS * VIT D, 25-HYDROXY (07/10/2017 10:00 AM) Component Value Ref Range Vit D, 25-Hydroxy 11.4 (L) 30 - 100 ng/mL Comment: Vitamin D deficiency has been defined by the [place] of Medicine and Endocrine Society guideline as a level of serum 25-OH Vitamin D less than 20 ng/mL. The Endocrine Society further defines Vitamin D insufficiency as a level between 21 and 29 ng/mL and sufficiency as a level between 30 and 100 ng/mL. Specimen Performing Laboratory [facility] * INTACT PTH (07/10/2017 10:00 AM) Component Value Ref Range Intact PTH 140.50 (H) 8.7 - 77.1 pg/mL Specimen Performing Laboratory Blood MISYS * PT/INR/PTT (07/10/2017 10:00 AM) Only the most recent of 2 results within the time period is included. Component Value Ref Range PT 14.2 11.8 - 15.0 Seconds INR 1.1 SUGGESTED THERAPEUTIC RANGES: INR 2.0-3.0 for MODERATE INTENSITY ANTICOAGULATION INR 2.5-3.5 for HIGH INTENSITY ANTICOAGULATION PTT 35.2 23.6 - 36.4 Seconds Specimen Performing Laboratory Blood MISYS * LIVER PROFILE (07/10/2017 10:00 AM) Only the most recent of 2 results within the time period is included. Component Value Ref Range T Protein 5.1 (L) 6.4 - 8.2 g/dL Albumin 2.3 (L) 3.4 - 5.0 g/dL T Bilirubin 0.4 0.2 - 1.0 mg/dL Alk Phos 116 45 - 117 U/L AST 15 15 - 37 U/L ALT 24 12 - 78 U/L D Bilirubin 0.1 0.0 - 0.2 mg/dL Specimen Performing Laboratory Blood MISYS * RETIC COUNT (07/10/2017 5:34 AM) Only the most recent of 2 results within the time period is included. Component Value Ref Range Retic Count 1.1 0.5 - 1.8 % Immature Retic 7.7 2.3 - 13.4 % Ret Hgb Equivalent 34.00 30.8 - 36.6 pg Absolute Retic 0.04 0.03 - 0.10 M/uL Specimen Performing Laboratory Blood MISYS * ELECTROPH, 24HR UR (07/09/2017 10:45 PM) Component Value Ref Range Volume 900 mL Protein, Ur 2.29 g/day Comment Electronically signed out by: Jamila Mujica,[id number] (note) Interpretation:Marked proteinuria, no Bence Ohara protein. Specimen Performing Laboratory Urine MIS[facility] * T PROT, TIMED UR (07/09/2017 10:45 PM) Component Value Ref Range T Prot (Period) 24 hrs T Prot (Volume) 900 mL T Prot, Ur 2.539 g/L T Prot(Calculated) 2,285.1 mg/24 [facility] Specimen Performing Laboratory MISYS * XRAY CHEST 2 VIEWS (07/09/2017 11:12 AM) Only the most recent of 5 results within the time period is included. Specimen Performing Laboratory SMS Impressions IMPRESSION: Moderate left pleural effusion with left basilar atelectatic changes. Interval resolution of the previously seen small right pleural effusion. Signed By: Meghann Peres MD, 07/09/2017 11:13 AM Narrative EXAM: XR CHEST 2 VIEWS DATE: 07/09/2017 10:59 AM . INDICATION: decreased breath sounds LLL; f/u effusion COMPARISON: 07/04/2017 TECHNIQUE:PAand lateral chest radiographs DISCUSSION: There is moderate left pleural effusion with left basilar atelectatic changes. No right pleural effusion. Upper lungs are clear. Surgical clips in the left axillary and upper chest region. No pneumothorax. The cardiomediastinal silhouette is grossly unremarkable. Procedure Note Interface, Rad/Mammog In - 07/09/2017 11:18 AM NANOSCIENCE TECHNICIAN EXAM: XR CHEST 2 VIEWS DATE: 07/09/2017 [...] By: Meghann Peres MD, 07/09/2017 11:13 AM * FERRITIN (07/09/2017 3:50 AM) Only the most recent of 2 results within the time period is included. Component Value Ref Range Ferritin 51.20 26.00 - 388.00 ng/mL Specimen Performing Laboratory MISYS * IRON PROFILE (07/09/2017 3:50 AM) Only the most recent of 2 results within the time period is included. Component Value Ref Range Iron 37 (L) 65 - 175 ug/dL TIBC 246 (L) 250 - 450 ug/dL % Iron Sat 15 % Specimen Performing Laboratory MISYS * T PROT/CREA RATIO,UR (07/08/2017 10:45 PM) Component Value Ref Range Creatinine, Ur 47.1 mg/dL T Prot, Ur 2.314 g/L T Prot/Crea Ratio,Ur 4.91 (H) 0.0 - 0.5 Specimen Performing Laboratory Urine MISYS * HIV-1/HIV-2 ROUTINE SCREENING (07/08/2017 10:30 PM) Only the most recent of 2 results within the time period is included. Component Value Ref Range HIV-1/HIV-2 Negative NEG Specimen Performing Laboratory MISYS * FREE KAPPA & LAMBDA LIGHT CHAINS, SERUM (07/08/2017 10:30 PM) Component Value Ref Range Free [place] Lt Ch 80.6 Reference range: 3.3 to 19.4 Unit: mg/L (H) Free Lambda Lt Ch 45.4 Reference range: 5.7 to 26.3 Unit: mg/L (H) [place]/Lambda Ratio 1.78 Reference range: 0.26 to 1.65 (H) Specimen Performing Laboratory Blood MISYS * NEUTROPHILE AB (07/08/2017 10:30 PM) Component Value Ref Range MPO-ANCA (note) IU/mL MPO: < 9.0 Test performed [facility] MPO Reference Interval: 0.0 - 9.0 U/ml PR3-ANCA (note) IU/mL PR3: <3.5 Test [email or web address] PR3 Reference Interval 0.0 - 3.5 U/ ml Specimen Performing Laboratory Blood MISYS * ELECTROPH, BLD (07/08/2017 10:30 PM) Component Value Ref Range Protein 5.0 g/dL Comment Electronically signed out by: Jamila Mujica,PhD./[id number] (note) INTERPRETATION: There is a decrease in albumin and serum protein levels. This suggests hemodilution, generalized malnutrition, and a protein losing state or a redistribution of body water. Specimen Performing Laboratory Blood MISYS * COMPLEMENT C4 (07/08/2017 10:30 PM) Component Value Ref Range Complement C4 27.2 10.0 - 40.0 mg/dL Specimen Performing Laboratory Blood MISYS * COMPLEMENT C3 (07/08/2017 10:30 PM) Component Value Ref Range Complement C3 134.0 90.0 - 180.0 mg/dL Specimen Performing Laboratory Blood MIS[facility] * KARI (07/08/2017 10:30 PM) Component Value Ref Range KARI Screen Negative NEG Specimen Performing Laboratory Blood M[facility] * DUPLEX DOPPLER ABD/PEL VASCULAR STUDY, COMPLETE (07/07/2017 9:59 AM) Specimen Performing Laboratory SMS Impressions IMPRESSION: 1.Mildly increased bilateral renal resistive indices, right greater than left, with no increased velocities to suggest renal arterial stenosis. 2.Increased echogenicity of the kidneys can be seen with medical renal disease. 3.Bilateral moderate pleural effusions are present. Dictated By: Joseph Burleson MD, 07/07/2017 10:48 AM I have reviewed the study and agree with the findings in this report. Signed By: Meghann Peres MD, 07/07/2017 11:02 AM Narrative EXAM: US RENAL WITH DOPPLER DATE: 07/07/2017 9:59 AM INDICATION: evaluate kidneys in setting of worsening function. ADDITIONAL INFORMATION: Status post left upper pole partial nephrectomy. COMPARISON: Renal ultrasound 11/23/2016, CT abdomen pelvis 07/06/2017 TECHNIQUE: Multiplanar grayscale, color Doppler and spectral Doppler ultrasound of the kidneysand urinary bladder. FINDINGS: Right kidney: Size: 11.5 [...] bilateral pleural effusions are present Other: None. Procedure Note Interface, Rad/Mammog In - 07/07/2017 11:06 AM NANOSCIENCE TECHNICIAN EXAM: US RENAL WITH DOPPLER DATE: 07/07/2017 [...] By: Meghann Peres MD, 07/07/2017 11:02 AM * U/S RENAL (07/07/2017 9:59 AM) Specimen Performing Laboratory SMS Impressions IMPRESSION: 1.Mildly increased bilateral renal resistive indices, right greater than left, with no increased velocities to suggest renal arterial stenosis. 2.Increased echogenicity of the kidneys can be seen with medical renal disease. 3.Bilateral moderate pleural effusions are present. Dictated By: Joseph Burleson MD, 07/07/2017 10:48 AM I have reviewed the study and agree with the findings in this report. Signed By: Meghann Peres MD, 07/07/2017 11:02 AM Narrative EXAM: US RENAL WITH DOPPLER DATE: 07/07/2017 9:59 AM INDICATION: evaluate kidneys in setting of worsening function. ADDITIONAL INFORMATION: Status post left upper pole partial nephrectomy. COMPARISON: Renal ultrasound 11/23/2016, CT abdomen pelvis 07/06/2017 TECHNIQUE: Multiplanar grayscale, color Doppler and spectral Doppler ultrasound of the kidneysand urinary bladder. FINDINGS: Right kidney: Size: 11.5 [...] bilateral pleural effusions are present Other: None. Procedure Note Interface, Rad/Mammog In - 07/07/2017 11:06 AM NANOSCIENCE TECHNICIAN EXAM: US RENAL WITH DOPPLER DATE: 07/07/2017 [...] By: Meghann Peres MD, 07/07/2017 11:02 AM * COMPUTED TOMOGRAPHY ABDOMEN AND PELVIS WITHOUT CONTRAST (07/06/2017 4:14 PM) Only the most recent of 2 results within the time period is included. Specimen Performing Laboratory SMS Addenda Addendum by Home Hernández MD on 07/07/2017 9:20 AM ADDENDUM: Please note the patient has developed new splenic hypodensities since the prior study, which likely represent multifocal infarcts. Signed By: Home Hernández M.D., 07/07/2017 9:20 AM Impressions IMPRESSION: 1.No acute abdominal or pelvic abnormality. 2.Moderate distention of the urinary bladder with wall thickening and trabeculation/diverticula suggesting sequelae of chronic outlet obstruction. Decompression may be indicated. 3.Moderately distended fluid-filled stomach may relate to gastroparesis. 4.Moderate bilateral pleural effusions and anasarca suggestive of volume overload. 5.Stable post surgical changes of partial left nephrectomy. 6.Stable nonspecific sclerotic foci in the skeleton. 7.Cardiomegaly and extensive coronary artery and aortic atherosclerotic disease. Signed By: Home Hernández M.D., 07/07/2017 9:11 AM Narrative EXAM:CT ABDOMEN AND PELVIS WITHOUT CONTRAST DATE: 07/06/2017 4:14 PM INDICATION: hx of RCC s/p L partial nephrectomy in setting of declining renal function. ADDITIONAL INFORMATION: None. TECHNIQUE:CT abdomen and pelvis performed without IV contrast. [...] duct is not dilated. Gallbladder: Grossly unremarkable. Adrenals:Normal. Spleen:Multifocal new areas of hypoattenuation in the superior and mid aspect of the spleen suggestive of splenic infarcts. Pancreas:Mildly atrophic without other focal abnormality. Stomach and duodenum:Stomach is moderately distended with fluid. No duodenal diverticula. Kidneys:No obvious mass or hydronephrosis.Postoperative changes of partial left nephrectomy are unchanged. Bladder:Moderately distended with wall thickening and trabeculation suggesting chronic bladder outlet obstruction. Pelvis: Prostate is atrophic.No pelvic lymphadenopathy. GI tract:Normal caliber without evidence of obstruction.The appendix has a normal appearance. Lymph nodes:No adenopathy is seen. Vessels:Moderate aortoiliac atherosclerotic change. Peritoneum/retroperitoneum:No free air or ascites. No organized fluid collections. Soft tissues:Anasarca. Regional skeleton:No osseous destructive lesions. Stable 1.6 cm sclerotic focus in the left ilium. Additional smaller sclerotic foci in the skeleton also appear unchanged. Procedure Note Interface, Rad/Mammog In - 07/07/2017 9:15 AM NANOSCIENCE TECHNICIAN EXAM: CT ABDOMEN AND PELVIS WITHOUT CONTRAST DATE: [...] By: Home Hernández M.D., 07/07/2017 9:11 AM * TSH (07/06/2017 4:16 AM) Component Value Ref Range TSH 3.16 0.36 - 3.74 uIU/mL Specimen Performing Laboratory Blood MISYS * FREE T4 (07/06/2017 4:16 AM) Component Value Ref Range Free T4 1.02 0.89 - 1.76 ng/dl Specimen Performing Laboratory Blood MISYS * TRANSTHORACIC ECHO (TTE) (07/05/2017 7:14 AM) Component Value Ref Range TRANSTHORACIC ECHO (TTE) Transthoracic Echo Report DINESH DIAZ Age:62 Gender: M :1955 Exam Date: 07/05/2017 07:14 Exam Location: [facility] Echo Ordering Phys: DENI OTOOLE V Referring Phys:[id number] Louise Reading Phys:Mateo Deras MD Fellow Phys: Fellow Phys: Type Casting Machine Operator: Tegan Morris Reason For Exam: Indications:pleural effusion, BLE edema, compliant on bp-meds/lasix ICD-9 Codes: Exam Type: Transthoracic Echo Procedure CPT:52003 Addtional CPT: Ht (in): 69 BSA: 1.93HR: [...] BP 43.5 cm LV Cardiac Output MOD [id number] cm/min LV Cardiac Index MOD BP 1799 cm/minm LA Volume 68.5 cm18 - 58 / 22 - 52 cm DOPPLER AV Peak Hrnellmx141 cm/s AV Peak Gradient7.9 mmHg AV Mean Sfgptybh73.7 cm/s AV Mean Gradient4 mmHg AV Velocity Time Integral 26.7 cm LVOT Peak Jfqikxcl119 cm/s LVOT Peak Gradient4.7 mmHg LVOT Mean Gowsmsdv06.1 cm/s LVOT Mean Gradient2 mmHg LVOT Velocity Time Integral 18.9 cm LVOT Stroke Frwexe55.4 cm AV Area Cont Eq vti 2.6 cm AV Area Cont Eq pk2.9 cm Mitral E Point Velocity 118 cm/s Mitral A Point Velocity 84 cm/s Mitral E to A Ratio 1.4 MV Deceleration [place] 711 cm/s MV Deceleration Gtxt711 ms PV Peak Rwvbfhdt66.7 cm/s PV Peak Gradient1.9 mmHg LV E' [...] BP 43.5 cm LV Cardiac Output MOD [id number] cm/min LV Cardiac Index MOD BP 1799 cm/minm LA Volume 68.5 cm18 - 58 / 22 - 52 cm DOPPLER AV Peak Qmkqvfbw900 cm/s AV Peak Gradient7.9 mmHg AV Mean Rrxiukan83.7 cm/s AV Mean Gradient4 mmHg AV Velocity Time Integral 26.7 cm LVOT Peak Tpptzllu116 cm/s LVOT Peak Gradient4.7 mmHg LVOT Mean Txwemuij07.1 cm/s LVOT Mean Gradient2 mmHg LVOT Velocity Time Integral 18.9 cm LVOT Stroke Ygqaxe51.4 cm AV Area Cont Eq vti 2.6 cm AV Area Cont Eq pk2.9 cm Mitral E Point Velocity 118 cm/s Mitral A Point Velocity 84 cm/s Mitral E to A Ratio 1.4 MV Deceleration [place] 711 cm/s MV Deceleration Orcu432 ms PV Peak Isysssgl64.7 cm/s PV Peak Gradient1.9 mmHg LV E' Lateral Velocity6.1 cm/s Mitral E to LV E' Lateral Ratio 19.4 LV E' Septal Velocity 5.7 cm/s Mitral E to LV E' Septal Ratio20.8 Specimen Performing Laboratory SMS * HEMOGLOBIN A1C (07/05/2017 6:02 AM) Only the most recent of 2 results within the time period is included. Component Value Ref Range Hemoglobin A1c 8.5 (H) 4.3 - 6.1 % Est Average Gluc 197.3 mg/dL Specimen Performing Laboratory Blood MISYS * FOLIC ACID (07/05/2017 6:02 AM) Component Value Ref Range Folic Acid 8.3 5.39 - 24.0 ng/mL Specimen Performing Laboratory Blood MISYS * VITAMIN B12 (07/05/2017 6:02 AM) Component Value Ref Range Vitamin B12 732 211 - 911 pg/mL Specimen Performing Laboratory Blood MISYS * HEPATITIS PANEL (07/05/2017 6:02 AM) Component Value Ref Range HCV IgG Negative NEG HBsAg Negative NEG HAV, IgM Negative NEG HBcAb, IgM Negative NEG Specimen Performing Laboratory Blood MISYS * DUPLEX DOPPLER LOWER EXTREMITY VENOUS, BILATERAL (07/05/2017 3:30 AM) Specimen Performing Laboratory SMS Impressions IMPRESSION: 1.No deep venous thrombosis (DVT) of the right or left lower extremity. 2.Bilateral lower extremity superficial soft tissue edema. This [facility] radiology report is a preliminary resident dictation until finalized by an attending.Changes to this preliminary report may occur in an additional preliminary or finalized version. Dictated By: Steven Elliott MD, 07/05/2017 3:56 AM I have reviewed the study and agree with the findings in this report. Signed By: Mervin Mendoza MD, 07/05/2017 4:30 AM Narrative EXAM: US BILATERAL LOWER EXTREMITY VENOUS DOPPLER [...] Bilateral lower extremity superficial soft tissue edema. Procedure Note Interface, Rad/Mammog In - 07/05/2017 4:34 AM NANOSCIENCE TECHNICIAN EXAM: US BILATERAL LOWER EXTREMITY VENOUS DOPPLER [...] lower extremity superficial soft tissue edema. This [facility] radiology report is a preliminary resident dictation until finalized by an attending. Changes to this preliminary report may occur in an additional preliminary or finalized version. Dictated By: Steven Elliott MD, 07/05/2017 3:56 AM I have reviewed the study and agree with the findings in this report. Signed By: Mervin Mendoza MD, 07/05/2017 4:30 AM * 12 LEAD EKG (07/04/2017 2:10 PM) Only the most recent of 3 results within the time period is included. Component Value Ref Range 12 LEAD EKG FOR [facility] Test Date:2017-07-04 Pat Name: DINESH DIAZDepartment: : Gender: DUSTIN echnician: [id number] :1955 Requested By: Order Number: Reading MD: Ruben Grant Measurements Intervals [place] Rate: 78 P:15 MN: 160QRS :25 QRSD: 112T: 203 QT: 379 QTc:434 Interpretive Statements SINUS RHYTHM MODERATE INTRAVENTRICULAR CONDUCTION DELAY POSSIBLE ANTEROSEPTAL INFARCTION, INDETERMINATE AGE NONSPECIFIC T WAVE ABNORMALITY POOR R WAVE PROGRESSION ABNORMAL ECG Electronically Signed On 07-05-17 19:07:02 NANOSCIENCE TECHNICIAN by Ruben Grant Specimen Performing Laboratory SMS * BMP POC (07/04/2017 1:19 PM) Only the most recent of 2 results within the time period is included. Component Value Ref Range CO2 POC 23Comment: Physician Notified 21 - 32 mmol/L Chloride POC 107 98 - 107 mmol/L Potassium POC 4.6 3.50 - 5.10 mmol/L Sodium POC 142 136 - 145 mmol/L Glucose POC 310 (H) 74 - 106 mg/dL Urea Nitrogen POC 41 (H) 7 - 18 mg/dL Creatinine POC 3.4 (H) 0.6 - 1.3 mg/dL Calcium Ionized POC 1.09 (L) 1.15 - 1.29 mmol/L Hemoglobin POC 14.6 14.0 - 18.0 g/dL Hematocrit POC 43.0 40.0 - 54.0 % GFR, Estimated 18 mL/min/1.73 m2 GFR, Estim, Afr-Am 22 mL/min/1.73 m2 Specimen Performing Laboratory MISYS * TROPONIN I POC (07/04/2017 1:18 PM) Component Value Ref Range Troponin POC 0.04 0.00 - 0.08 ng/mL Specimen Performing Laboratory MISYS * B NATRIURETIC PEPT (07/04/2017 1:15 PM) Component Value Ref Range B Natriuretic Pept 4,625 (H) 0 - 100 pg/mL Specimen Performing Laboratory Blood MISYS * UA CHEMISTRIES (07/04/2017 1:15 PM) Component Value Ref Range Color Yellow Clarity Clear Spec [place] 1.021 1.001 - 1.035 pH 6.0 5 - 8 Protein 3+ (A) NEG Glucose 3+ (A) NEG Ketone Negative NEG Bilirubin Negative NEG Nitrate Negative NEG Urobilinogen <1.0 0.2 - 1.0 EU/dL Leukocyte Negative NEG Blood 1+ (A) NEG RBC 9 (H) 0 - 4 /HPF WBC 8 (H) 0 - 5 /HPF Bacteria Few Hyaline Cast 3 /LPF Granular Cast 1 /LPF Specimen Performing Laboratory Urine MISYS * DIABETIC FOOT EXAM (03/27/2017 10:20 AM) Nena Snowden, NADINE 03/27/2017 10:20 AM Diabetic Foot Exam was performed at 03/27/2017 10:09 AM.Right foot sensation is reduced, right foot pulses are normal, right foot appearance is abnormal (large callous lateral plantar surface ).Left foot sensation is reduced,left foot pulses are normal,left foot appearance is normal. * POC GROUP A STREP SCREEN (03/27/2017) Component Value Ref Range Group A Strep POC neg Neg - Neg GAS (Contr) pass Pass - Pass * XRAY SPINE CER 2-3 AP- LAT- ODONTOID (02/03/2017 4:16 PM) Specimen Performing Laboratory SMS Impressions IMPRESSION: 1. Status post posterior cervical fusion with 2 rods and interpedicular screws from C3 to C6. 2. No evidence of hardware failure or loosening. Dictated By: Go David MD, 02/06/2017 8:51 AM I have reviewed the study and agree with the findings in this report. Signed By: Jose Garvin MD, 02/06/2017 9:47 AM Narrative XRAY SPINE CER 2-3 AP- LAT- ODONTOID [...] degenerative changes of the right-sided uncovertebral joints. Procedure Note Interface, Rad/Mammog In - 02/06/2017 9:52 AM [...] By: Jose Garvin MD, 02/06/2017 9:47 AM after 01/18/2017
[2019-02-28] MEDS ORDERED: MIDAZOLAM HCL 2 MG/2 ML VIAL ONE (10:28)
[2019-02-28] MEDS ORDERED: LIDOCAINE HCL 2% LOCAL 20 ML VIAL ONE (10:28)
[2019-02-28] MEDS ORDERED: FENTANYL CITRATE/PF 100MCG/2 ML INJ ONE (10:28)
[2019-02-28] MEDS ORDERED: HEPARIN SOD/SOD CHLORIDE 2,000 ML ONE (10:29)
[2019-02-28] MEDS ORDERED: SODIUM CHLORIDE 0.9% 1000ML 1,000 ML ONE (10:29)
[2019-02-28] MEDS ORDERED: IOPAMIDOL 370 MG/ML 200 ML INFUS..BTL INJ ONE (10:29)
[2019-02-28] MEDS ORDERED: LABETALOL HCL 20 ML ONE (13:35)
--- NOTE | 2019-02-28 13:41 | NUR ---
[id number] bedside report received from Delbert ZAMBRANO.[facility] DR Mendez no fix Multivessel dz low EF with heart failure.Rt Mynx closure device.Down for 2 additional hours. Md requesting admission for potential surgical evaluation. Alert oriented and appropriate, PERRLA, respirations even and unlabored to room air. Pulses x4 extremities unequal and Doppler only Pedal pulses PT/DP marked. Cap fill brisk < 3 sec. Skin warm and dry integrity appears D/I. IV 20g to left arm iv off saline lock remain intact. Left perma-cath sc dressing intact as Hd access due for Hd in am Pt presents healthy w/o s/s of infiltration or complaint to left arm iv. Abdomen soft and supple. pt offered toileting, denies need to urinate or defecate. No personal affects with patient. No Family Friend Anisha Manzo available at , Pt verbalizes understanding of POC. Dr Mendez spoke with pt twice and organizing admission. RT groin Mynx site w/o hematoma or,oozing.PPx4 with Doppler, grant/lorenzo
--- NOTE | 2019-02-28 14:13 | Operative Report ---
DATE OF PROCEDURE: 02/28/2019 SURGEON: Von Mendez MD PROCEDURE: Left heart catheterization. INDICATIONS: 1. Chronic congestive heart failure, systolic. 2. Coronary artery disease of [place] vessels. ANESTHESIA: Versed, fentanyl, and lidocaine. COMPLICATIONS: None. TECHNIQUE: The patient was draped and prepped in the usual fashion. The area was anesthetized with lidocaine. Standard Seldinger technique was used to place a 6-Prydeinig sheath into the right femoral artery without difficulty. A JL4 catheter was used to selectively engage the left coronary artery. A 3DRC catheter was used to selectively engage the right coronary artery. A pigtail catheter was used to perform a left ventriculogram. There were no complications. Mynx device was used for closure. RESULTS: 1. There is a normal left main trunk. 2. There is a large left anterior descending artery, which gave rise to a medium-sized diagonal branch, was 100% occlusion of the left anterior descending artery immediately after the origin of the diagonal branch. 3. There was a small AV circumflex artery, which gave rise to a medium-sized bifurcating obtuse marginal branch. There was 80% stenosis in the proximal AV circumflex artery and 80% stenosis in the mid AV circumflex artery. 4. There was a large dominant right coronary artery with a 90% stenosis right at the origin of the posterior descending artery. 5. The left ventriculogram demonstrated severe global left ventricular dysfunction with an ejection fraction of 15%. CONCLUSION: The patient has severe global left ventricular dysfunction with an ejection fraction of 15% and severe three-vessel coronary artery disease. Options for revascularization will be discussed with the patient and family. Von Mendez MD [facility]/MODL /[id number]
--- OUTSIDE RECORDS SUMMARY | 2019-02-28 14:29 | XMS REPORT | Continuity of Care Document ---
Author Author [facility] Address Unknown Phone Unavailable Care Team Providers Care Dance Instructor Name Role Phone Encore Alert Information Magic Leap Unavailable Unavailable Problems Problem Status Onset Date Classification Date Reported Comments Source UNK Active 01/03/2019 [facility] Pain in right elbow 06/15/2018 12/26/2018 [facility] M25.521 - PAIN IN RIGHT ELBOW Active 06/08/2018 [facility] OTHER Active 02/15/2018 [facility] VOLUME OVERLOAD Active 02/15/2018 [facility] M62.81 MUSCLE WEAKNESS 02/11/2018 Diagnosis 02/16/2018 [facility] L97.929 NON-PRESSURE CHRONIC ULCER OF UNSPECIFIED PART OF LEFT LOWER LEG WITH UNSPECIFIED SEVERITY 02/09/2018 Diagnosis 02/16/2018 [place] [facility] [place] [facility] M86.672 OTHER CHRONIC OSTEOMYELITIS, LEFT ANKLE AND FOOT 02/09/2018 Diagnosis 02/16/2018 [facility] E46 UNSPECIFIED PROTEIN-[place]OR[place] MALNUTRITION 02/09/2018 Diagnosis 02/16/2018 [facility] E88.9 METABOLIC DISORDER, UNSPECIFIED 02/09/2018 Diagnosis 02/16/2018 SNF: [facility] AMS Active 02/02/2018 [facility] Acinetobacter1, 2 Active 01/04/2018 Problem 12/26/2018 wound, 01/04/2018 Problem added by Discern Expert. REY Ansari,[facility] VRE5, 6 Active 01/04/2018 Problem 12/26/2018 wound, 01/04/2018 [facility] Enterobacter3, 4 Active 01/03/2018 Problem 12/26/2018 wound, 01/03/2018 Problem added by Discern Expert. REY Ansari [place] DIZZINESS Active 01/01/2018 [facility] NEAR SYNCOPE Active 01/01/2018 [facility] ABNORMAL LABS Active 12/12/2017 [facility] CELLULITIS, HYPERKALEMIA Active 12/12/2017 [facility] R27.8 OTHER LACK OF COORDINATION 11/24/2017 Diagnosis 02/16/2018 SN[facility]: [facility] [place] [facility] R26.89 OTHER ABNORMALITIES OF GAIT AND MOBILITY 11/24/2017 Diagnosis 02/16/2018 SNF: [facility] [place] [facility] Z89.412 ACQUIRED ABSENCE OF LEFT GREAT TOE 11/24/2017 Diagnosis 02/16/2018 SNF: [facility] [place] [facility] D63.1 ANEMIA IN CHRONIC KIDNEY DISEASE 11/24/2017 Diagnosis 02/16/2018 SNF: [facility] [place] [facility] N04.9 NEPHROTIC SYNDROME WITH UNSPECIFIED MORPHOLOGIC CHANGES 11/24/2017 Diagnosis 02/16/2018 SNF: [facility] [place] [facility] L03.115 CELLULITIS OF RIGHT LOWER LIMB 11/24/2017 Diagnosis 02/16/2018 SNF: [facility] [place] [facility] M86.172 OTHER ACUTE OSTEOMYELITIS, LEFT ANKLE AND FOOT 11/24/2017 Diagnosis 02/16/2018 SNF: [facility] [facility] E08.8 DIABETES MELLITUS DUE TO UNDERLYING CONDITION WITH UNSPECIFIED COMPLICATIONS 09/27/2017 Diagnosis 02/16/2018 SNF: [facility] [place] [facility] I73.9 PERIPHERAL VASCULAR DISEASE, UNSPECIFIED 09/27/2017 Diagnosis 02/16/2018 SNF: [facility] [facility] I10 ESSENTIAL HYPERTENSION 09/27/2017 Diagnosis 02/16/2018 SNF: [facility] [place] [facility] I50.20 UNSPECIFIED SYSTOLIC HEART FAILURE 09/27/2017 Diagnosis 02/16/2018 SNF: [facility] [place] [facility] Z99.2 DEPENDENCE ON RENAL DIALYSIS 09/27/2017 Diagnosis 02/16/2018 SN[facility]: [facility] [facility] I25.10 ATHEROSCLEROTIC HEART DISEASE OF [place] CORONARY ARTERY WITHOUT ANGINA PECTORIS 09/27/2017 Diagnosis 02/16/2018 SNF: [facility] [place] [facility] E11.319 TYPE 2 DIABETES MELLITUS WITH UNSPECIFIED DIABETIC RETINOPATHY WITHOUT MACULAR EDEMA 09/27/2017 Diagnosis 02/16/2018 SNF: [facility] [facility] E78.5 HYPERLIPIDEMIA, UNSPECIFIED 09/27/2017 Diagnosis 02/16/2018 SNF: [facility] [place] [facility] E13.621 OTHER SPECIFIED DIABETES MELLITUS WITH FOOT ULCER 09/27/2017 Diagnosis 02/16/2018 SNF: [facility] N18.6 END STAGE RENAL DISEASE 09/27/2017 Diagnosis 02/16/2018 SNF: [facility] E11.40 TYPE 2 DIABETES MELLITUS WITH DIABETIC NEUROPATHY, UNSPECIFIED 09/27/2017 Diagnosis 02/16/2018 SNF: [facility] I96 GANGRENE, NOT ELSEWHERE CLASSIFIED 09/27/2017 Diagnosis 02/16/2018 SNF: [facility] A41.9 SEPSIS, UNSPECIFIED ORGANISM 09/27/2017 Diagnosis 12/01/2017 SNF: [facility] Carotid artery disease Active 07/09/2017 Problem 01/19/2018 [facility] History of renal cell cancer Active 07/06/2017 Problem 01/19/2018 [facility] Acute on chronic combined systolic and diastolic CHF, NYHA class 3 Active 07/05/2017 Problem 01/19/2018 [facility] Actinic keratosis Active 01/26/2017 Problem 01/19/2018 [facility] Diabetic toe ulcer Active 04/29/2016 Problem 01/19/2018 [facility] Tinnitus Active 04/29/2016 Problem 01/19/2018 [facility] 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 dysfunction, NYHA class 3 and CKD stage 4 Active 04/28/2016 Problem 01/19/2018 [facility] History of CVA Active 04/25/2016 Problem 01/19/2018 [facility] WEAKNESS Active 04/03/2016 [facility] TIA, HYPERTENSION Active 04/03/2016 [facility] Type 2 diabetes, uncontrolled, with ulcer of toe Active 11/09/2015 Problem 01/19/2018 [facility] 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 Active 08/13/2015 Problem 01/19/2018 [facility] Hyperlipidemia Active 07/16/2015 Problem 01/19/2018 [facility] H/O: urethral stricture Active 07/23/2010 Problem 01/19/2018 [facility] HTN Active 07/23/2010 Problem 01/19/2018 [facility] Syncope and collapse 02/01/2018 [facility] Diabetes Active Problem 12/26/2018 REY Ansari, [place] H/O: stroke Resolved Problem 12/26/2018 REY Ansari,[facility] Hypertension Active Problem 12/26/2018 REY Harrella,[facility] Cancer of kidney Active Problem 12/26/2018 JESICAD Butler,[facility] Primary cancer of skin of chest Active Problem 12/26/2018 JESICABud SeamanButler,[facility] Severe protein-calorie malnutrition Active Problem 12/26/2018 REY Ansari,[facility] Autonomic orthostatic hypotension Active Problem 01/19/2018 [facility] Moderate nonproliferative diabetic retinopathy of both eyes associated with type 2 diabetes mellitus Active Problem 01/19/2018 [facility] Right upper extremity numbness Active Problem 01/19/2018 [facility] Proteinuria Active Problem 01/19/2018 [facility] Vitamin D deficiency Active Problem 01/19/2018 [facility] Acute kidney injury superimposed on chronic kidney disease Active Problem 01/19/2018 [facility] Impaired mobility and activities of daily living Active Problem 01/19/2018 [facility] Non compliance w medication regimen Active Problem 01/19/2018 [facility] Stenosis, cervical spine Active Problem 01/19/2018 [facility] CKD stage 3, GFR 30-59 ml/min Active Problem 01/19/2018 [facility] Urinary obstruction Active Problem 01/19/2018 [facility] TRANSIENT CEREBRAL ISCHEMIC ATTACK, UNSP Active [facility] CELLULITIS, UNSPECIFIED Active [facility] HYPERKALEMIA Active [facility] SYNCOPE AND COLLAPSE Active [facility] ALTERED MENTAL STATUS, UNSPECIFIED Active [facility] FLUID OVERLOAD, UNSPECIFIED Active [facility] Medications Medication Details Route Status Patient Instructions Ordering Provider Order Date Source Docusate 100 mg, 1 cap, Route: PO, Drug form: CAP, BID, Dosing Weight 62.273, kg, Start date: 02/16/18 9:00:00 CDT, Duration: 30 day, Stop date: 03/17/18 17:00:00 CDTNotes: (Same as: Colace) (Do Not Crush) Inactive 02/16/2018 [facility] Acetaminophen 325 MG / Hydrocodone Bitartrate 5 MG Oral Tablet 1 tab, Route: PO, Drug Form: TAB, Dosing Weight 62.273, kg, Q4H, PRN Pain Score 4-6, Start date: 02/15/18 23:51:00 CDT, Duration: 30 day, Stop date: 03/17/18 23:50:00 CDTNotes: (Same as: [place] 325/5) Do not exceed 4gm/day of acetaminophen. No Longer Active 02/16/2018 [facility] Acetaminophen 650 mg, 2 tab, Route: PO, Drug form: TAB, Q4H, Dosing Weight 62.273, kg, PRN Pain 1-3/Temp > 100.4 F, Start date: 02/15/18 23:51:00 CDT, Duration: 30 day, Stop date: 03/17/18 23:50:00 CDTNotes: Do not exceed 4 gm/day. (Same as: Tylenol) No Longer Active 02/16/2018 [facility] Ondansetron 4 mg, 2 mL, Route: IVP, Drug form: INJ, Q6H, Dosing Weight 62.273, kg, PRN Nausea & Vomiting, Start date: 02/15/18 23:51:00 CDT, Duration: 30 day, Stop date: 03/17/18 23:50:00 CDTNotes: (Same as: Zofran) MEDICATION WASTE Product Size: 4 mg Product Wasted: ___ mg No Longer Active 02/16/2018 [facility] Kayexalate 30 gm, 120 mL, Route: PO, Drug form: SUSP, ONCE, Dosing Weight 62.273, kg, Start date: 02/15/18 23:35:00 CDT, Stop date: 02/15/18 23:35:00 CDTNotes: (sodium polystyrene sulfonate 15 gm/60 ml JUSTIN) Sh aguila well before use. (Same as: Kayexalate, SPS) Inactive 02/16/2018 [facility] NIFEdipine 90 mg oral tablet, extended release 90 mg=1 tab, PO, Daily, 0 Refill(s) Active 02/16/2018 [facility] metoprolol tartrate 25 mg oral tablet 25 mg=1 tab, PO, BID, 0 Refill(s) Active 02/16/2018 [facility] Atorvastatin Calcium Tablet 40 MG Give 1 tablet by mouth at bedtime for HLD Oral Active 02/11/2018 SNF: [facility] HydrALAZINE HCl Tablet 50 MG Give 1.5 tablet by mouth three times a day for HTN total 75 ng, hold for SBP less than 110 Oral Active 02/10/2018 SNF: [facility] NIFEdipine ER Osmotic Release Tablet Extended Release 24 Hour 90 MG Give 1 tablet by mouth one time a day for HTN hold for SBP less than 110 Oral Active 02/10/2018 [place] [facility] [place] [facility] Metoprolol Tartrate Tablet 25 MG Give 1 tablet by mouth two times a day for HTN hold for SBP less than 110 or pulse less 60 Oral Active 02/10/2018 SNF: [facility] Aspirin Tablet 81 MG Give 1 tablet by mouth one time a day for prophylactic Oral Active 02/10/2018 [facility] Lisinop[facility] Tablet 20 MG Give 1.5 tablet by mouth one time a day for HTN hold for SBP less than 110 Oral Active 02/10/2018 [place] [facility] Nitroglycerin Tablet Sublingual 0.4 MG Give 1 tablet sublingually every 5 minutes as needed for chest pain Sublingual Active 02/10/2018 SNF: [facility] lidocaine 1% 5 mL, Route: IV, Drug Form: INJ, Dosing Weight 58.267, kg, ONCE, Start date: 02/09/18 18:34:00 CDT, Stop date: 02/09/18 18:34:00 CDTNotes: Preservative free. (Same as: Xylocaine MPF) Inactive 02/09/2018 [facility] Lidocaine Hydrochloride 10 MG/ML Injectable Solution 5 mL, Route: IV, Drug Form: INJ, Dosing Weight 58.267, kg, ONCE, Start date: 02/09/18 17:53:00 CDT, Stop date: 02/09/18 17:53:00 CDTNotes: Preservative free. (Same as: Xylocaine MPF) Inactive 02/09/2018 [facility] lidocaine 2% 200 mg, 10 mL, Route: IV, Drug Form: INJ, Dosing Weight 58.267, kg, ONCE, Start date: 02/09/18 17:28:00 CDT, Stop date: 02/09/18 17:28:00 CDTNotes: Syringe (Same as: Xylocaine) Inactive 02/09/2018 [facility] Lidocaine Hydrochloride 10 MG/ML Injectable Solution 2 mL, Route: INTRADERM, Drug Form: INJ, Dosing Weight 58.267, kg, ONCE, Start date: 02/09/18 16:08:00 CDT, Stop date: 02/09/18 16:08:00 CDTNotes: Preservative free. (Same as: Xylocaine MPF) Inactive 02/09/2018 [facility] lisinopril 20 mg oral tablet 30 mg=1.5 tab, PO, Daily, 0 Refill(s) Active 02/09/2018 [facility] Hydralazine Hydrochloride 50 MG Oral Tablet 75 mg=1.5 tab, PO, TID, 0 Refill(s) Active 02/09/2018 [facility] Lisinopril 30 mg, 1.5 tab, Route: PO, Drug form: TAB, Daily, Dosing Weight 58.267, kg, Start date: 02/09/18 9:00:00 CDT, Duration: 30 day, Stop date: 03/10/18 9:00:00 CDTNotes: (Same as: Prinivil, Zestril) Inactive 02/09/2018 [facility] Lisinopril 10 mg, 2 tab, Route: PO, Drug form: TAB, ONCE, Dosing Weight 58.267, kg, Start date: 02/08/18 22:49:00 CDT, Stop date: 02/08/18 22:49:00 CDTNotes: (Same as: Prinivil, Zestril) Inactive 02/09/2018 [facility] Hydralazine Hydrochloride 50 MG Oral Tablet 75 mg, 1.5 tab, Route: PO, Drug form: TAB, TID, Dosing Weight 58.267, kg, Start date: 02/08/18 9:00:00 CDT, Duration: 30 day, Stop date: 03/09/18 17:00:00 CDTNotes: (Same as: Apresoline) May interfere w/enteral feedings Take With Food No Longer Active 02/08/2018 [facility] heparin sodium, porcine 2500 UNT/ML Injectable Solution 5,000 unit, 1 mL, Route: SUB-Q, Drug form: INJ, Q8Hnow, Dosing Weight 58.267, kg, Start date: 02/07/18 21:00:00 CDT, Duration: 30 day, Stop date: 03/09/18 13:00:00 CDTNotes: porcine heparin No Longer Active 02/08/2018 [facility] Labetalol 10 mg, 2 mL, Route: IV, Drug form: INJ, ONCE, Dosing Weight 58.267, kg, Start date: 02/07/18 5:09:00 CDT, Stop date: 02/07/18 5:09:00 CDTNotes: (Same as: Normodyne, Trandate) Push over 2 minutes Give bolus over 2-3 minutes. Inactive 02/07/2018 [facility] Hydralazine 20 mg, 1 mL, Route: IV, Drug form: INJ, ONCE, Dosing Weight 58.267, kg, Start date: 02/07/18 2:46:00 CDT, Stop date: 02/07/18 2:46:00 CDTNotes: (Same as: Apresoline) Push over 5 minutes Inactive 02/07/2018 [facility] *RN* - Restore Hydrogel in CPD *RN* - Restore Hydrogel in CPD, attn, Drug form: MISC, Route: MISC, QSHIFT, 02/07/18 0:00:00 CDT, Duration: 30 day, Stop date: 03/08/18 16:00:00 CDT No Longer Active 02/07/2018 [facility] Restore Hydrogel topical gel 1 appl, Route: TOP, Dosing Weight 58.267, kg, BID, Start date: 02/06/18 17:00:00 CDT, Duration: 30 day, Stop date: 03/08/18 9:00:00 CDT No Longer Active 02/06/2018 [facility] vancomycin + Sodium Chloride 0.9% IV 100 mL 500 mg, Route: IVPB, Q-M-W-F, Start date: 02/05/18 21:00:00 CDT, Duration: 30 day, Stop date: 03/07/18 9:00:00 CDT, ABX Indication: Bone/Joint InfectionNotes: TIME CRITICAL MEDICATION (Same As: Vancocin) For adult patients only: Round to nearest 250 mg per Medical Staff approval No Longer Active 02/06/2018 [facility] Amikin + Sodium Chloride 0.9% IV [...] Wasted: ___ mg No Longer Active 02/06/2018 [facility] Calcium Gluconate 3 gm, 30 mL, Route: IVPB, PRN, Dosing Weight 58.267, kg, PRN Abnormal Lab Result, For NON-ICU Patients Only., Start date: 02/05/18 18:19:00 CDT, Duration: 30 day, Stop date: 03/07/18 18:18:00 CDTNotes: WASTE: F/P - Sink; E - Municipal Trash Bin No Longer Active 02/05/2018 [facility] Magnesium Oxide 800 mg, 2 tab, Route: PO, Drug form: TAB, PRN, Dosing Weight 58.267, kg, PRN Abnormal Lab Result, For NON-ICU Patients Only., Start date: 02/05/18 18:19:00 CDT, Duration: 30 day, Stop date: 03/07/18 18:18:00 CDTNotes: (Same as: Mag-Ox 400) Magnesium oxide [id number] elemental magnesium Dose=____mg magnesium oxide (___mg elemental magnesium) No Longer Active 02/05/2018 [facility] Magnesium Sulfate 1 gm, 100 mL, Route: IVPB, Drug form: INJ, PRN, Dosing Weight 58.267, kg, PRN Abnormal Lab Result, For NON-ICU Patients Only., Start date: 02/05/18 18:19:00 CDT, Duration: 30 day, Stop date: 03/07/18 18:18:00 CDTNotes: WASTE: F/P - Sink; E - Municipal Trash Bin No Longer Active 02/05/2018 [facility] sodium phosphate 30 mmol, 10 mL, Route: IVPB, PRN, Dosing Weight 58.267, kg, PRN Abnormal Lab Result, For NON-ICU Patients Only., Start date: 02/05/18 18:19:00 CDT, Duration: 30 day, Stop date: 03/07/18 18:18:00 CDT No Longer Active 02/05/2018 [facility] potassium phosphate 15 mmol, 5 mL, Route: IVPB, PRN, Dosing Weight 58.267, kg, PRN Abnormal Lab Result, For NON-ICU Patients Only., Start date: 02/05/18 18:19:00 CDT, Duration: 30 day, Stop date: 03/07/18 18:18:00 CDTNotes: (Same as: K Phosphate.) 1 mMol phoshate has 1.47 mEq potassium Infuse over 4 hours No Longer Active 02/05/2018 [facility] Potassium Chloride 10 mEq, 5 mL, Route: IVPB, PRN, Dosing Weight 58.267, kg, PRN Abnormal Lab Result, For NON-ICU Patients Only, Start date: 02/05/18 18:19:00 CDT, Duration: 30 day, Stop date: 03/07/18 18:18:00 CDTNotes: MUST be Diluted before use (Same as: KCl) MEDICATION WASTE Product Size: 40 mEq Product Wasted: ___ mEq No Longer Active 02/05/2018 [facility] potassium phosphate-sodium phosphate 250 mg-280 mg-160 [...] water and stir. No Longer Active 02/05/2018 [facility] epoetin ruddy 10,000 unit, 1 mL, Route: SUB-Q, Drug form: INJ, Q-M-W-F, Start date: 02/05/18 17:00:00 CDT, Duration: 30 day, Stop date: 03/05/18 17:00:00 CDTNotes: (Same as: Procrit) epoetin ruddy 02493 unit/1 ml VL. For dialysis use only. (Procrit) WASTE: F/P - Red; E -Red MEDICATION WASTE Product Size: 65278 unit Product Wasted: ___ unit No Longer Active 02/05/2018 [facility] NIFEdipine 90 mg oral tablet, extended release 90 mg, 1 tab, Route: PO, Drug form: ERTAB, Daily, Dosing Weight 58.267, kg, Start date: 02/05/18 9:00:00 CDT, Duration: 30 day, Stop date: 03/06/18 9:00:00 CDTNotes: (Same as: Adalat CC,Procardia XL) "Do Not Crush" "Avoid grapefruit and grapefruit juice" No Longer Active 02/05/2018 [facility] Amikacin 250 mg, Route: IV, Dosing Weight 58.267, kg, Q-M-W-F, Start date: 02/05/18 9:00:00 CDT, Duration: 14 day, Stop date: 02/16/18 9:00:00 CDT, Pharmacy to dose No Longer Active 02/05/2018 [facility] cadexomer iodine 0.009 MG/MG Topical Gel [Iodosorb] 1 appl, Route: TOP, Daily, Drug form: GEL, Start date: 02/05/18 9:00:00 CDT, Duration: 30 day, Stop date: 03/06/18 9:00:00 CDTNotes: Same as; Iodosorb FOR EXTERNAL USE ONLY Non-Formulary Drug No Longer Active 02/05/2018 [facility] Lopressor 25 mg, 1 tab, Route: PO, Drug form: TAB, Q12H, Dosing Weight 58.267, kg, Start date: 02/04/18 21:00:00 CDT, Duration: 30 day, Stop date: 03/06/18 9:00:00 CDTNotes: (Same as: Lopressor) No Longer Active 02/05/2018 [facility] atorvastatin 40 mg, 1 tab, Route: PO, Drug form: TAB, Bedtime, Dosing Weight 58.267, kg, Start date: 02/04/18 21:00:00 CDT, Duration: 30 day, Stop date: 03/05/18 21:00:00 CDTNotes: (Same as: Lipitor) No Longer Active 02/05/2018 [facility] Hydralazine 10 mg, 0.5 mL, Route: IV, Drug form: INJ, Q4H, Dosing Weight 58.267, kg, PRN Hypertension, Start date: 02/04/18 18:29:00 CDT, Duration: 30 day, Stop date: 03/06/18 18:28:00 CDTNotes: (Same as: Apresoline) Push over 5 minutes No Longer Active 02/04/2018 [facility] Hydralazine Hydrochloride 50 MG Oral Tablet 50 mg, 1 tab, Route: PO, Drug form: TAB, TID, Dosing Weight 58.267, kg, Start date: 02/04/18 17:00:00 CDT, Duration: 30 day, Stop date: 03/06/18 13:00:00 CDTNotes: (Same as: Apresoline) May interfere w/enteral feedings Take With Food No Longer Active 02/04/2018 [facility] Aspirin 81 MG Enteric Coated Tablet 81 mg, 1 tab, Route: PO, Drug form: ECTAB, Daily, Dosing Weight 58.267, kg, Start date: 02/04/18 14:30:00 CDT, Duration: 30 day, Stop date: 03/06/18 9:00:00 CDTNotes: Do not crush or chew. (Same As: Ecotrin) No Longer Active 02/04/2018 [facility] Lisinopril 20 mg, 1 tab, Route: PO, Drug form: TAB, Daily, Dosing Weight 58.267, kg, Start date: 02/04/18 14:30:00 CDT, Duration: 30 day, Stop date: 03/06/18 9:00:00 CDTNotes: (Same as: Prinivil, Zestril) No Longer Active 02/04/2018 [facility] Nitroglycerin 0.4 MG Sublingual Tablet [Nitrostat] 0.4 mg, 1 tab, Route: SL, Drug form: TAB, Q5Min, Dosing Weight 58.267, kg, PRN Chest Pain, Start date: 02/04/18 13:58:00 CDT, Duration: 30 day, Stop date: 03/06/18 13:57:00 CDTNotes: (Same as:Nitroquick, Nitrostat) "Do Not Crush" Sublingual tablet No Longer Active 02/04/2018 [facility] Hydralazine 10 mg, 0.5 mL, Route: IVP, Drug form: INJ, ONCE, Dosing Weight 58.267, kg, Start date: 02/04/18 6:22:00 CDT, Stop date: 02/04/18 6:22:00 CDTNotes: (Same as: Apresoline) Push over 5 minutes Inactive 02/04/2018 [facility] Hydralazine 10 mg, 0.5 mL, Route: IVP, Drug form: INJ, Q4H, Dosing Weight 58.267, kg, PRN Elevated BP, Start date: 02/04/18 0:26:00 CDT, Duration: 30 day, Stop date: 03/06/18 0:25:00 CDTNotes: (Same as: Dylon wills) Push over 5 minutes Inactive 02/04/2018 [facility] Amikin + Sodium Chloride 0.9% IV 100 mL 450 mg, 9 mL, Route: IV, Drug form: INJ, ONCE, Start date: 02/03/18 17:00:00 CDT, Stop date: 02/03/18 17:00:00 CDTNotes: TIME CRITICAL MEDICATION (Same as: Amikin) For adult patients only: Round to nearest 50 mg per Medical Staff approval Inactive 02/03/2018 [facility] linezolid 600 mg, 300 mL, Route: IVPB, Drug form: SOLN, [id number], Dosing Weight 58.267, kg, Start date: 02/03/18 15:00:00 CDT, Duration: 14 day, Stop date: 02/17/18 6:00:00 CDT, ABX Indication: Bone/Joint Infec tionNotes: (Same as: Zyvox) No Longer Active 02/03/2018 [facility] Unasyn 3 gm, Route: IVPB, [id number], Dosing Weight 58.267, kg, Start date: 02/03/18 15:00:00 CDT, Duration: 30 day, Stop date: 03/05/18 3:00:00 CDTNotes: Dosing based on Ampicillin component (Same as: Unasyn) No Longer Active 02/03/2018 [facility] Aranesp 100 microgram, Route: SUB-Q, Drug form: SOLN, Q7D, Dosing Weight 58.267, kg, Start date: 02/03/18 12:00:00 CDT, Duration: 30 day, Stop date: 03/03/18 9:00:00 CDT Inactive 02/03/2018 [facility] vancomycin + Dextrose 5% in Water [...] mg Product Wasted: ___ mg Inactive 02/03/2018 [facility] Zosyn + Sodium Chloride 0.9% IV 100 mL 3.375 gm, Route: IVPB, [id number], Dosing Weight 58.267, kg, Start date: 02/03/18 5:30:00 CDT, Duration: 7 day, Stop date: 02/09/18 21:30:00 CDT, ABX Indication: Bone/Joint InfectionNotes: (Same as: Zosyn) Dosing based on Piperacillin component MEDICATION WASTE Product Size: 3375 mg Product Wasted: ___ mg Inactive 02/03/2018 [facility] Vancomycin 1 ea, Route: MISC, ONCALL, Dosing Weight 58.267, kg, Start date: 02/03/18 5:00:00 CDT, Duration: 7 day, Stop date: 02/10/18 4:59:00 CDT, Pharmacy to dose, ABX Indication: Bone/Joint Infection Inactive 02/03/2018 [facility] Zosyn 3.375 gm, Route: IVPB, [id number], Dosing Weight 58.267, kg, Start date: 02/03/18 5:00:00 CDT, Stop date: 02/09/18 21:00:00 CDT, ABX Indication: Bone/Joint InfectionNotes: (Same as: Zosyn) Dosing based on P iperacillin component MEDICATION WASTE Product Size: 3375 mg Product Wasted: ___ mg Inactive 02/03/2018 [facility] Ondansetron 4 mg, 2 mL, Route: IVP, Drug form: INJ, Q6H, Dosing Weight 58.267, kg, PRN Nausea & Vomiting, Start date: 02/02/18 19:52:00 CDT, Duration: 30 day, Stop date: 03/04/18 19:51:00 CDTNotes: (Same as: Zofran) MEDICATION WASTE Product Size: 4 mg Product Wasted: ___ mg No Longer Active 02/03/2018 [facility] Morphine 6 mg, 3 mL, Route: PO, Drug form: SOLN, Q4H, Dosing Weight 58.267, kg, PRN Pain Score 7-10, Start date: 02/02/18 19:52:00 CDT, Stop date: 03/04/18 19:51:00 CDTNotes: (Same as:MORPhine Sulfate) No Longer Active 02/03/2018 [facility] Acetaminophen 650 mg, 2 tab, Route: PO, Drug form: TAB, Q4H, Dosing Weight 58.267, kg, PRN Pain 1-3/Temp > 100.4 F, Start date: 02/02/18 19:52:00 CDT, Duration: 30 day, Stop date: 03/04/18 19:51:00 CDTNotes: Do not exceed 4 gm/day. (Same as: Tylenol) No Longer Active 02/03/2018 [facility] Acetaminophen 325 MG / Hydrocodone Bitartrate 5 MG Oral Tablet 1 tab, Route: PO, Drug Form: TAB, Dosing Weight 58.267, kg, Q4H, PRN Pain Score 4-6, Start date: 02/02/18 19:52:00 CDT, Duration: 30 day, Stop date: 03/04/18 19:51:00 CDTNotes: (Same as: [place] 325/5) Do not exceed 4gm/day of acetaminophen. No Longer Active 02/03/2018 [facility] Nitroglycerin 0.4 MG Sublingual Tablet [Nitrostat] 0.4 mg=1 tab, SL, Q5Min, PRN Chest Pain, # 25 tab, 0 Refill(s), Pharmacy: [facility]/pharmacy #[id number] Active 01/29/2018 [facility] NIFEdipine 90 mg oral tablet, extended release 90 mg=1 tab, PO, Daily, # 30 tab, 0 Refill(s), Pharmacy: [facility]/pharmacy #[id number] Active 01/29/2018 [facility] Hydralazine 10 mg, 0.5 mL, Route: IVP, Drug form: INJ, Q4H, Dosing Weight 56.449, kg, PRN Hypertension, Start date: 01/26/18 16:56:00 CDT, Duration: 30 day, Stop date: 02/25/18 16:55:00 CDTNotes: (Same as: Hiram glover) Push over 5 minutes No Longer Active 01/26/2018 [facility] Nifedical XL 90 mg, 1 tab, Route: PO, Drug form: ERTAB, Daily, Dosing Weight 56.449, kg, Start date: 01/26/18 9:00:00 CDT, Stop date: 02/24/18 9:00:00 CDTNotes: (Same as: Adalat CC,Procardia XL) "Do Not Crush" "Avoid grapefruit and grapefruit juice" No Longer Active 01/26/2018 [facility] Clonidine 0.1 mg, Route: PO, Drug form: TAB, Q8H, Dosing Weight 56.449, kg, PRN Elevated BP, Start date: 01/25/18 17:18:00 CDT, Duration: 30 day, Stop date: 02/24/18 17:17:00 CDT Inactive 01/25/2018 [facility] Gibson packet 1 pkt, Route: PO, Drug Form: PWDR, Dosing Weight 56.449, kg, BID-Before Meals, Start date: 01/25/18 16:30:00 CDT, Duration: 14 day, Stop date: 02/08/18 7:30:00 CDTNotes: (Same as: Gibson Rico) No Longer Active 01/25/2018 [facility] PHOS-NaK 1 pkt, Route: PO, Drug Form: PDR/REC, Dosing Weight 56.449, kg, QID-Before Meals, Start date: 01/23/18 11:30:00 CDT, Duration: 1 day, Stop date: 01/24/18 7:30:00 CDTNotes: (Same as: Phos-NaK) Each 1.5 gm pkt has 250mg phosphorous. Mix w/2.5oz water and stir. No Longer Active 01/23/2018 [facility] Amlodipine 5 mg, 1 tab, Route: PO, Drug form: TAB, Daily, Dosing Weight 56.449, kg, Start date: 01/23/18 9:45:00 CDT, Duration: 30 day, Stop date: 02/22/18 9:00:00 CDTNotes: (Same as: Norvasc) No Longer Active 01/23/2018 [facility] Calcitriol 0.25 microgram, 1 cap, Route: PO, Drug form: CAP, Daily, Dosing Weight 56.449, kg, Start date: 01/23/18 9:00:00 CDT, Duration: 30 day, Stop date: 02/21/18 9:00:00 CDTNotes: (Same As: Rocaltrol) No Longer Active 01/23/2018 [facility] Folic Acid 1 mg, 1 tab, Route: PO, Drug form: TAB, Daily, Dosing Weight 56.449, kg, Start date: 01/23/18 9:00:00 CDT, Duration: 30 day, Stop date: 02/21/18 9:00:00 CDTNotes: (Same as: Folvite) No Longer Active 01/23/2018 [facility] Magnesium Sulfate 2 gm, 50 mL, Route: IVPB, Drug form: INJ, ONCE, Dosing Weight 56.449, kg, Start date: 01/22/18 17:23:00 CDT, Stop date: 01/22/18 17:23:00 CDTNotes: WASTE: F/P - Sink; E - Municipal Trash Bin Inactive 01/22/2018 [facility] potassium chloride + Sodium Chloride 0.9% IV 95 mL 10 mEq, 5 mL, Route: IVPB, Q1H, Start date: 01/21/18 11:00:00 CDT, Duration: 3 doses or times, Stop date: 01/21/18 13:00:00 CDTNotes: MUST be Diluted before use (Same as: KCl) MEDICATION WASTE Product Size: 40 mEq Product Wasted: ___ mEq Inactive 01/21/2018 [facility] Potassium Chloride 30 mEq, Route: IV, ONCE, Dosing Weight 56.449, kg, Start date: 01/21/18 9:47:00 CDT, Stop date: 01/21/18 9:47:00 CDT Inactive 01/21/2018 [facility] epoetin ruddy 10,000 unit, 1 mL, Route: SUB-Q, Drug form: INJ, Q-M-W-F, Start date: 01/20/18 17:00:00 CDT, Stop date: 02/16/18 17:00:00 CDTNotes: (Same as: Procrit) epoetin ruddy 41312 unit/1 ml VL. For dialysis use only. (Procrit) WASTE: F/P - Red; E -Red MEDICATION WASTE Product Size: 51026 unit Product Wasted: ___ unit No Longer Active 01/20/2018 [facility] darbepoetin ruddy 200 microgram, Route: SUB-Q, Drug form: SOLN, Q7D, Dosing Weight 56.449, kg, Start date: 01/20/18 10:00:00 CDT, Duration: 30 day, Stop date: 02/17/18 9:00:00 CDT Inactive 01/20/2018 [facility] potassium chloride 20 mEq oral tablet, [...] Patient’s with feeding tube less than 14 [place] (Dobhoff, J-tube etc) and pediatric and patients. With food and full glass of water Inactive 01/20/2018 [facility] Vitamin B12 500 microgram, 1 tab, Route: PO, Drug form: TAB, Daily, Dosing Weight 56.449, kg, Start date: 01/20/18 9:00:00 CDT, Duration: 30 day, Stop date: 02/18/18 9:00:00 CDTNotes: (Same As: Vitamin B12) No Longer Active 01/20/2018 [facility] Ergocalciferol 50,000 IntlUnit, 1 cap, Route: PO, Drug form: CAP, Daily, Dosing Weight 56.449, kg, Start date: 01/20/18 9:00:00 CDT, Duration: 3 day, Stop date: 01/22/18 9:00:00 CDTNotes: (Same as: Vitamin D) "Do Not Crush" No Longer Active 01/20/2018 [facility] Amikacin 250 mg, 1 mL, Route: IV, Drug form: INJ, Q-M-W-F, Dosing Weight 56.449, kg, Start date: 01/19/18 17:00:00 CDT, Stop date: 01/31/18 17:00:00 CDTNotes: TIME CRITICAL MEDICATION (Same as: Amikin) For adul t patients only: Round to nearest 50 mg per Medical Staff approval MEDICATION WASTE Product Size: 500 mg Product Wasted: ___ mg No Longer Active 01/19/2018 [facility] Thiamine 100 mg, 1 mL, Route: IVP, Drug form: INJ, Daily, Dosing Weight 56.449, kg, Start date: 01/19/18 16:00:00 CDT, Duration: 30 day, Stop date: 02/18/18 9:00:00 CDTNotes: (Same As: Vitamin B1) No Longer Active 01/19/2018 [facility] Nitroglycerin 0.4 MG Sublingual Tablet [Nitrostat] 0.4 mg, 1 tab, Route: SL, Drug form: TAB, Q5Min, Dosing Weight 56.449, kg, PRN Chest Pain, Start date: 01/19/18 12:03:00 CDT, Duration: 3 doses or times, Stop date: Limited # of timesNotes: (Same as:Nitroquick, Nitrostat) "Do Not Crush" Sublingual tablet No Longer Active 01/19/2018 [facility] Terbutaline 0.25 mg, 0.25 mL, Route: SUB-Q, Drug form: INJ, Q6H, Dosing Weight 56.449, kg, PRN Bradycardia, Start date: 01/19/18 12:03:00 CDT, Duration: 30 day, Stop date: 02/18/18 12:02:00 CDTNotes: DO NOT USE IN [employer] AREA (Same As: Brethine) No Longer Active 01/19/2018 [facility] Lopressor 2.5 mg, 2.5 mL, Route: IVP, Drug form: INJ, Q3H, Dosing Weight 56.449, kg, PRN Tachycardia, Start date: 01/19/18 12:03:00 CDT, Duration: 30 day, Stop date: 02/18/18 12:02:00 CDTNotes: (Same as: Lopressor) Push over 2 minutes No Longer Active 01/19/2018 [facility] Morphine 6 mg, 3 mL, Route: PO, Drug form: SOLN, Q4H, Dosing Weight 56.449, kg, PRN Chest Pain, Start date: 01/19/18 12:03:00 CDT, Stop date: 02/18/18 12:02:00 CDTNotes: (Same as:MORPhine Sulfate) No Longer Active 01/19/2018 [facility] Hydralazine 10 mg, 0.5 mL, Route: IV, Drug form: INJ, Q4H, Dosing Weight 56.449, kg, PRN Hypertension, Start date: 01/19/18 12:03:00 CDT, Duration: 30 day, Stop date: 02/18/18 12:02:00 CDTNotes: (Same as: Apresoline) Push over 5 minutes No Longer Active 01/19/2018 [facility] ePHEDrine (ANES) Route: IV, Drug form: INJ, ONCE, Stop date: 01/19/18 10:47:00 CDT Inactive 01/19/2018 [facility] propofol (ANES) Route: IV, Drug form: INJ, ONCE, Stop date: 01/19/18 10:47:00 CDT Inactive 01/19/2018 [facility] norepinephrine (ANES) Route: IV, Drug form: INJ, ONCE, Stop date: 01/19/18 10:47:00 CDT Inactive 01/19/2018 [facility] atropine (ANES) Route: IV, Drug form: INJ, ONCE, Stop date: 01/19/18 10:47:00 CDT Inactive 01/19/2018 [facility] glycopyrrolate (ANES) Route: IV, Drug form: INJ, ONCE, Stop date: 01/19/18 10:47:00 CDT Inactive 01/19/2018 [facility] lidocaine (ANES) Route: IV, Drug form: INJ, ONCE, Stop date: 01/19/18 10:47:00 CDT Inactive 01/19/2018 [facility] midazolam (ANES) Route: IV, Drug form: SOLN, ONCE, Stop date: 01/19/18 10:47:00 CDT Inactive 01/19/2018 [facility] famotidine (ANES) Route: IV, Drug form: INJ, ONCE, Stop date: 01/19/18 10:47:00 CDT Inactive 01/19/2018 [facility] fentaNYL (ANES) Route: IV, Drug form: INJ, ONCE, Stop date: 01/19/18 10:47:00 CDT Inactive 01/19/2018 [facility] Sodium Chloride 0.9% IV 500 mL 500 mL, Rate: 25 ml/hr, Infuse over: 20 hr, Route: IV, Dosing Weight 56.449 kg, Total Volume: 500, Start date: 01/19/18 9:55:00 CDT, Duration: 30 day, Stop date: 02/18/18 9:54:00 CDT, 1.66, m2 Inactive 01/19/2018 [facility] Sodium Chloride 0.9% IV (ANES) 500 mL Route: IV, Total Volume: 500, Start date: 01/19/18 9:41:00 CDT, Stop date: 01/19/18 10:41:00 CDT Inactive 01/19/2018 [facility] Unasyn 3 gm, Route: IVPB, [id number], Dosing Weight 56.449, kg, Start date: 01/18/18 17:00:00 CDT, Duration: 30 day, Stop date: 02/17/18 11:00:00 CDTNotes: Dosing based on Ampicillin component (Same as: Unasyn) No Longer Active 01/18/2018 [facility] Amikacin 400 mg, 1.6 mL, Route: IV, Drug form: INJ, ONCE, Dosing Weight 56.449, kg, Start date: 01/18/18 16:00:00 CDT, Stop date: 01/18/18 16:00:00 CDTNotes: TIME CRITICAL MEDICATION (Same as: Amikin) For ad ult patients only: Round to nearest 50 mg per Medical Staff approval MEDICATION WASTE Product Size: 1000 mg Product Wasted: ___ mg No Longer Active 01/18/2018 [facility] Amikacin 1 ea, Route: MISC, Dosing Weight 56.449, kg, ONCALL, Start date: 01/18/18 15:00:00 CDT, Duration: 1 doses or times, Pharmacy to dose Inactive 01/18/2018 [facility] Dextrose 5% in Water IV 1,000 mL 1,000 mL, Rate: 60 ml/hr, Infuse over: 16.7 hr, Route: IV, Dosing Weight 56.449 kg, Total Volume: 1,000, Start date: 01/18/18 11:41:00 CDT, Duration: 30 day, Stop date: 02/17/18 11:40:00 CDT, 1.66, m2 No Longer Active 01/18/2018 [facility] Geodon 10 mg, Route: IM, Q6H, Dosing Weight 56.449, kg, Start date: 01/18/18 0:00:00 CDT, Duration: 30 day, Stop date: 02/16/18 18:00:00 CDT No Longer Active 01/18/2018 [facility] Geodon 10 mg, Route: IM, Drug form: PDR/INJ, Q6H, Dosing Weight 56.449, kg, PRN Agitation, Start date: 01/17/18 20:19:00 CDT, Duration: 30 day, Stop date: 02/16/18 20:18:00 CDTNotes: Reconstitute with 1.2 ml of sterile water. Final concentration=20 mg/1ml. Maximum 40 mg/24 hours (Same As: Linad). MEDICATION WASTE Product Size: 20 mg Product Wasted: ___ mg No Longer Active 01/18/2018 [facility] Sodium Chloride 0.9% (titrate) 250 mL 250 mL, Rate: To prime line and flush remaining blood products., Dosing Weight 56.449, kg, Route: IV, Total Volume: 250, Priority: Routine, Start Date: 01/17/18 11:38:00 CDT, Duration: 2 day, Stop date: 01/19/18 11:37:00 CDT, Replace Every: 24 hr No Longer Active 01/17/2018 [facility] calcium acetate 667 MG Oral Tablet 2,001 mg, 3 cap, Route: PO, Drug form: CAP, TID-Meals, Dosing Weight 56.449, kg, Start date: 01/14/18 17:00:00 CDT, Duration: 30 day, Stop date: 02/13/18 12:00:00 CDTNotes: Same as Phoslo Gel Cap No Longer Active 01/14/2018 [facility] Risperidone 0.25 mg, 1 tab, Route: [...] (Same as: Risperdal) No Longer Active 01/13/2018 [facility] Ativan 1 mg, 0.5 mL, Route: IV, Drug form: INJ, ONCE, Dosing Weight 56.449, kg, Priority: Routine, Start date: 01/12/18 21:17:00 CDT, Stop date: 01/12/18 21:17:00 CDTNotes: (Same as: Ativan) Inactive 01/13/2018 [facility] Dextrose 5% in Water IV 1,000 mL 1,000 mL, Rate: 40 ml/hr, Infuse over: 25 hr, Route: IV, Dosing Weight 56.449 kg, Total Volume: 1,000, Start date: 01/12/18 17:07:00 CDT, Duration: 30 day, Stop date: 02/11/18 17:06:00 CDT, 1.66, m2 No Longer Active 01/12/2018 [facility] Hydralazine Hydrochloride 25 MG Oral Tablet 37.5 mg, 1.5 tab, Route: PO, Drug form: TAB, Q8H, Dosing Weight 56.449, kg, Start date: 01/12/18 16:00:00 CDT, Stop date: 02/11/18 8:00:00 CDTNotes: (Same as: Apresoline) May interfere w/enteral feedings Take With Food. No Longer Active 01/12/2018 [facility] Seroquel 25 mg, 1 tab, Route: PO, Drug form: TAB, Q6H, Dosing Weight 56.449, kg, PRN Agitation, Start date: 01/11/18 23:41:00 CDT, Duration: 30 day, Stop date: 02/10/18 23:40:00 CDTNotes: (Same as: SEROquel) No Longer Active 01/12/2018 [facility] Acetaminophen 325 MG / Hydrocodone Bitartrate 10 MG Oral Tablet 1 tab, Route: PO, Drug Form: TAB, Dosing Weight 56.449, kg, Q4H, PRN Pain Score 7-10, Start date: 01/09/18 15:51:00 CDT, Stop date: 02/08/18 15:50:00 CDTNotes: Do not exceed 4gm/day of acetaminophen. (Same as: [place] 325/10) No Longer Active 01/09/2018 [facility] Acetaminophen 325 MG / Hydrocodone Bitartrate 5 MG Oral Tablet 1 tab, Route: PO, Drug Form: TAB, Dosing Weight 56.449, kg, Q4H, PRN Pain Score 4-6, Start date: 01/09/18 15:51:00 CDT, Stop date: 02/08/18 15:50:00 CDTNotes: (Same as: [place] 325/5) Do not exceed 4gm/day of acetaminophen. No Longer Active 01/09/2018 [facility] Promethazine 6.25 mg, Route: IVPB, ONCE, Dosing Weight 56.449, kg, PRN Nausea & Vomiting, Start date: 01/09/18 15:11:00 CDT Inactive 01/09/2018 [facility] Ondansetron 4 mg, Route: IVP, ONCE, Dosing Weight 56.449, kg, PRN Nausea & Vomiting, Start date: 01/09/18 15:11:00 CDT Inactive 01/09/2018 [facility] Diphenhydramine 12.5 mg, Route: IVP, Drug form: INJ, Q6H, Dosing Weight 56.449, kg, PRN Itching, Start date: 01/09/18 15:11:00 CDT, Duration: 30 day, Stop date: 02/08/18 15:10:00 CDT Inactive 01/09/2018 [facility] Meperidine 12.5 mg, Route: IVP, Q30Min, Dosing Weight 56.449, kg, PRN Other -See Comment, For shivering, Start date: 01/09/18 15:11:00 CDT, Duration: 2 doses or times, Stop date: Limited # of times Inactive 01/09/2018 [facility] Fentanyl 25 microgram, Route: IVP, Q5Min, Dosing Weight 56.449, kg, PRN Pain Score 4-6, Priority: Routine, Start date: 01/09/18 15:11:00 CDT, Duration: 4 doses or times, Stop date: Limited # of times Inactive 01/09/2018 [facility] Albuterol 0.83 MG/ML Inhalant Solution 2.49 mg, Route: NEB, Q20Min, Dosing Weight 56.449, kg, PRN Wheezing, Priority: STAT, Start date: 01/09/18 15:11:00 CDT, Duration: 30 day, Stop date: 02/08/18 15:10:00 CDT Inactive 01/09/2018 [facility] Naloxone 0.4 mg, Route: IVP, Q2MIN, Dosing Weight 56.449, kg, PRN Narcotic Reversal, Start date: 01/09/18 15:11:00 CDT, Duration: 8 doses or times, Stop date: Limited # of times Inactive 01/09/2018 [facility] Flumazenil 0.2 mg, Route: IVP, PRN, Dosing Weight 56.449, kg, PRN Benzodiazepine Reversal, Initial dose, Start date: 01/09/18 15:11:00 CDT, Duration: 30 day, Stop date: 02/08/18 15:10:00 CDT Inactive 01/09/2018 [facility] Calcium Chloride 0.0014 MEQ/ML / Potassium Chloride 0.004 MEQ/ML / Sodium Chloride 0.103 MEQ/ML / Sodium Lactate 0.028 MEQ/ML Injectable Solution 1,000 mL, Rate: 125 ml/hr, Infuse over: 8 hr, Route: IV, Dosing Weight 56.449 kg, Total Volume: 1,000, Start date: 01/09/18 15:11:00 CDT, Duration: 30 day, Stop date: 02/08/18 15:10:00 CDT, 1.66, m2 Inactive 01/09/2018 [facility] esmolol 10 mg, Route: IVP, Q5Min, Dosing Weight 56.449, kg, PRN Other -See Comment, Start date: 01/09/18 15:11:00 CDT, Duration: 5 doses or times, Stop date: Limited # of times Inactive 01/09/2018 [facility] Hydralazine 10 mg, Route: IVP, Q20Min, Dosing Weight 56.449, kg, PRN Elevated BP, Start date: 01/09/18 15:11:00 CDT, Duration: 2 doses or times, Stop date: Limited # of times Inactive 01/09/2018 [facility] Labetalol 10 mg, Route: IVP, Q5Min, Dosing Weight 56.449, kg, PRN Elevated BP, Start date: 01/09/18 15:11:00 CDT, Duration: 5 doses or times, Stop date: Limited # of times Inactive 01/09/2018 [facility] phenylephrine (ANES) Route: IV, Drug form: INJ, ONCE, Stop date: 01/09/18 14:42:00 CDT Inactive 01/09/2018 [facility] fentaNYL (ANES) Route: IV, Drug form: INJ, ONCE, Stop date: 01/09/18 14:27:00 CDT Inactive 01/09/2018 [facility] propofol (ANES) Route: IV, Drug form: INJ, ONCE, Stop date: 01/09/18 14:27:00 CDT Inactive 01/09/2018 [facility] ePHEDrine (ANES) Route: IV, Drug form: INJ, ONCE, Stop date: 01/09/18 14:27:00 CDT Inactive 01/09/2018 [facility] ceFAZolin (ANES) Route: IV, Drug form: INJ, ONCE, Stop date: 01/09/18 14:27:00 CDT Inactive 01/09/2018 [facility] lidocaine (ANES) Route: IV, Drug form: INJ, ONCE, Stop date: 01/09/18 14:27:00 CDT Inactive 01/09/2018 [facility] midazolam (ANES) Route: IV, Drug form: SOLN, ONCE, Stop date: 01/09/18 14:22:00 CDT Inactive 01/09/2018 [facility] Sodium Chloride 0.9% IV (ANES) 500 mL Route: IV, Total Volume: 500, Start date: 01/09/18 13:36:00 CDT, Stop date: 01/09/18 14:36:00 CDT Inactive 01/09/2018 [facility] Sodium Chloride 0.9% (Bolus) IV 500 mL, Route: IV, ONCE, Dosing Weight 56.449 kg, Start date: 01/09/18 11:50:00 CDT, Stop date: 01/09/18 11:50:00 CDT, Bolus Inactive 01/09/2018 [facility] Amlodipine 10 mg, 2 tab, Route: PO, Drug form: TAB, Daily, Dosing Weight 56.449, kg, Start date: 01/08/18 9:00:00 CDT, Duration: 30 day, Stop date: 02/06/18 9:00:00 CDTNotes: (Same as: Stevensonvasc) No Longer Active 01/08/2018 [facility] colistimethate + Sodium Chloride 0.9% IV 100 mL 85 mg, Route: IVPB, [id number], Start date: 01/07/18 20:00:00 CDT, Duration: 30 day, Stop date: 02/05/18 20:00:00 CDT, ABX Indication: Bone/Joint InfectionNotes: (Same As: Coly-Mycin) No Longer Active 01/08/2018 [facility] Amlodipine 5 mg, 1 tab, Route: PO, Drug form: TAB, ONCE, Dosing Weight 56.449, kg, Start date: 01/07/18 19:08:00 CDT, Stop date: 01/07/18 19:08:00 CDTNotes: (Same as: Harishc) Inactive 01/08/2018 [facility] Benadryl 12.5 mg, 0.5 tab, Route: PO, Drug form: TAB, ONCE, Dosing Weight 56.449, kg, PRN Allergic reaction, Start date: 01/07/18 14:31:00 CDT No Longer Active 01/07/2018 [facility] meropenem + Sodium Chloride 0.9% IV 100 mL 500 mg, Route: IVPB, [id number], Start date: 01/06/18 20:00:00 CDT, Duration: 30 day, Stop date: 02/04/18 21:00:00 CDT, ABX Indication: Bone/Joint InfectionNotes: Same as Merrem MEDICATION WASTE Product Size: 500 mg Product Wasted: ___ mg No Longer Active 01/07/2018 [facility] colistimethate + Sodium Chloride 0.9% IV 100 mL 280 mg, Route: IVPB, ONCE, Start date: 01/06/18 19:30:00 CDT, Stop date: 01/06/18 19:30:00 CDT, ABX Indication: Bone/Joint InfectionNotes: (Same As: Coly-Mycin) Inactive 01/07/2018 [facility] colistimethate 150 mg, Route: IVPB, [id number], Dosing Weight 56.449, kg, Start date: 01/06/18 18:00:00 CDT, Duration: 20 day, Stop date: 01/25/18 18:00:00 CDT, ABX Indication: Bone/Joint Infection Inactive 01/06/2018 [facility] meropenem 1,000 mg, Route: IV, Q24H, Dosing Weight 56.449, kg, Start date: 01/06/18 18:00:00 CDT, Duration: 30 day, Stop date: 02/04/18 18:00:00 CDT, ABX Indication: Bone/Joint Infection Inactive 01/06/2018 [facility] NS 500 mL 500 mL, Rate: 50 ml/hr, Infuse over: 10 hr, Route: IV, Dosing Weight 56.449 kg, Total Volume: 500, Start date: 01/06/18 13:31:00 CDT, Duration: 10 hr, Stop date: 01/06/18 23:30:00 CDT, 1.66, m2 Inactive 01/06/2018 [facility] vancomycin + Sodium Chloride 0.9% IV 100 mL 500 mg, Route: IVPB, Q-M-W-F, Start date: 01/05/18 17:00:00 CDT, Duration: 30 day, Stop date: 02/02/18 17:00:00 CDT, ABX Indication: Bone/Joint InfectionNotes: TIME CRITICAL MEDICATION (Same As: Vancocin) For adult patients only: Round to nearest 250 mg per Medical Staff approval Inactive 01/05/2018 [facility] Restore Hydrogel topical gel 1 appl, Route: TOP, Dosing Weight 56.449, kg, BID, Start date: 01/05/18 17:00:00 CDT, Duration: 30 day, Stop date: 02/04/18 9:00:00 CDT No Longer Active 01/05/2018 [facility] Dextrose 50% Syringe 25 gm, 50 mL, Route: IVP, Drug Form: INJ, Dosing Weight 56.449, kg, PRN, PRN Blood Glucose Results, Start date: 01/04/18 22:03:00 CDT, Duration: 30 day, Stop date: 02/03/18 22:02:00 CDT No Longer Active 01/05/2018 [facility] Glucagon 1 mg, Route: IM, Drug form: PDR/INJ, PRN, Dosing Weight 56.449, kg, PRN Blood Glucose Results, Start date: 01/04/18 22:03:00 CDT, Duration: 30 day, Stop date: 02/03/18 22:02:00 CDT No Longer Active 01/05/2018 [facility] Insulin Lispro 9 unit, 0.09 mL, [...] days from Date No Longer Active 01/05/2018 [facility] Gibson packet 1 pkt, Route: PO, Drug Form: PWDR, Dosing Weight 56.449, kg, BID-Before Meals, Start date: 01/04/18 16:30:00 CDT, Duration: 14 day, Stop date: 01/18/18 7:30:00 CDTNotes: (Same as: Gibson Rico) No Longer Active 01/04/2018 [facility] phenylephrine (ANES) Route: IV, Drug form: INJ, ONCE, Stop date: 01/04/18 10:20:00 CDT Inactive 01/04/2018 [facility] scopolamine (ANES) Route: Transdermal, Drug form: ERFILM, ONCE, Stop date: 01/04/18 10:05:00 CDT Inactive 01/04/2018 [facility] propofol (ANES) Route: IV, Drug form: INJ, ONCE, Stop date: 01/04/18 9:55:00 CDT Inactive 01/04/2018 [facility] fentaNYL (ANES) Route: IV, Drug form: INJ, ONCE, Stop date: 01/04/18 9:55:00 CDT Inactive 01/04/2018 [facility] midazolam (ANES) Route: IV, Drug form: SOLN, ONCE, Stop date: 01/04/18 9:55:00 CDT Inactive 01/04/2018 [facility] NS 500 mL 500 mL, Rate: 25 ml/hr, Infuse over: 20 hr, Route: IV, Dosing Weight 56.449 kg, Total Volume: 500, Start date: 01/04/18 9:36:00 CDT, Duration: 30 day, Stop date: 02/03/18 9:35:00 CDT, 1.66, m2 No Longer Active 01/04/2018 [facility] Sodium Chloride 0.9% IV (ANES) 500 mL Route: IV, Total Volume: 500, Start date: 01/04/18 9:08:00 CDT, Stop date: 01/04/18 10:08:00 CDT Inactive 01/04/2018 [facility] heparin 5,000 unit, 1 mL, Route: SUB-Q, Drug form: INJ, Q8H, Dosing Weight 56.449, kg, Start date: 01/04/18 0:00:00 CDT, Duration: 30 day, Stop date: 02/02/18 16:00:00 CDTNotes: porcine heparin No Longer Active 01/04/2018 [facility] Aspirin 81 MG Enteric Coated Tablet 81 mg, 1 tab, Route: PO, Drug form: ECTAB, Daily, Dosing Weight 56.449, kg, Start date: 01/03/18 17:25:00 CDT, Duration: 30 day, Stop date: 03/04/18 9:00:00 CDTNotes: Do not crush or chew. (Same As: Ecotrin) No Longer Active 01/03/2018 [facility] vancomycin + Dextrose 5% in Water [...] mg Product Wasted: ___ mg Inactive 01/03/2018 [facility] Zosyn 3.375 gm, Route: IVPB, Drug form: PDR/INJ, [id number], Dosing Weight 56.449, kg, CrCl Inactive 01/03/2018 [facility] Vancomycin 1 ea, Route: MISC, ONCALL, Dosing Weight 56.449, kg, Start date: 01/03/18 13:00:00 CDT, Duration: 30 day, Stop date: 02/02/18 12:59:00 CDT, Pharmacy to dose, ABX Indication: Skin/Soft Tissue Infection Inactive 01/03/2018 [facility] Amlodipine 5 mg, 1 tab, Route: PO, Drug form: TAB, Daily, Dosing Weight 56.449, kg, Start date: 01/03/18 12:30:00 CDT, Duration: 30 day, Stop date: 02/02/18 9:00:00 CDTNotes: (Same as: Norvasc) No Longer Active 01/03/2018 [facility] Lisinopril 40 mg, 2 tab, Route: PO, Drug form: TAB, Daily, Dosing Weight 56.449, kg, Start date: 01/03/18 9:00:00 CDT, Duration: 30 day, Stop date: 03/03/18 9:00:00 CDTNotes: (Same as: Prinivil, Zestril) No Longer Active 01/03/2018 [facility] metoprolol tartrate 25 mg, 1 tab, Route: PO, Drug form: TAB, Q12H, Dosing Weight 56.449, kg, Start date: 01/02/18 21:00:00 CDT, Duration: 30 day, Stop date: 02/01/18 9:00:00 CDTNotes: (Same as: Lopressor) No Longer Active 01/03/2018 [facility] atorvastatin 40 mg, 1 tab, Route: PO, Drug form: TAB, Bedtime, Dosing Weight 56.449, kg, Start date: 01/02/18 21:00:00 CDT, Duration: 30 day, Stop date: 03/02/18 21:00:00 CDTNotes: (Same as: Lipitor) No Longer Active 01/03/2018 [facility] Hydralazine Hydrochloride 50 MG Oral Tablet 50 mg, 1 tab, Route: PO, Drug form: TAB, TID, Dosing Weight 56.449, kg, Start date: 01/02/18 17:26:00 CDT, Duration: 30 day, Stop date: 02/01/18 17:00:00 CDTNotes: (Same as: Apresoline) May interfere w/enteral feedings Take With Food No Longer Active 01/02/2018 [facility] Insulin Lispro 3 unit, 0.03 mL, Route: SUB-Q, Drug form: SOLN, Bedtime, Dosing Weight 56.449, kg, PRN Blood Glucose Results, Start date: 01/02/18 17:10:00 CDT, Duration: 30 day, Stop date: 03/03/18 17:09:00 CDTNotes: (Same as: Humalog ) Roll in palms of hands gently; Do not shake `vigorously. "Single Patient Use Only " WASTE: F/P - Black; E - m2M [employer] Trash Bin Stable for 28 days at room temperature. Expires in days from Date No Longer Active 01/02/2018 [facility] Dextrose 50% Syringe 12.5 gm, 25 mL, Route: IVP, Drug Form: INJ, Dosing Weight 56.449, kg, PRN, PRN Blood Glucose Results, Start date: 01/02/18 17:10:00 CDT, Duration: 30 day, Stop date: 02/01/18 17:09:00 CDT No Longer Active 01/02/2018 [facility] Glucagon 1 mg, Route: IM, Drug form: PDR/INJ, PRN, Dosing Weight 56.449, kg, PRN Blood Glucose Results, Start date: 01/02/18 17:10:00 CDT, Duration: 30 day, Stop date: 02/01/18 17:09:00 CDT No Longer Active 01/02/2018 [facility] Acetaminophen 650 mg, 2 tab, Route: PO, Drug form: TAB, Q4H, Dosing Weight 59.659, kg, PRN Pain 1-3/Temp > 100.4 F, Start date: 01/02/18 4:25:00 CDT, Duration: 30 day, Stop date: 03/03/18 4:24:00 CDTNotes: Do not exceed 4 gm/day. (Same as: Tylenol) No Longer Active 01/02/2018 [facility] Ondansetron 4 mg, 1 tab, Route: PO, Drug form: TAB, Q6H, Dosing Weight 59.659, kg, PRN Nausea & Vomiting, Start date: 01/02/18 4:25:00 CDT, Duration: 30 day, Stop date: 03/03/18 4:24:00 CDTNotes: (Same as: Zofran) No Longer Active 01/02/2018 [facility] Meclizine 50 mg, 2 tab, Route: PO, Drug form: TAB, ONCE, Dosing Weight 59.659, kg, Priority: STAT, Start date: 01/02/18 2:18:00 CDT, Stop date: 01/02/18 2:18:00 CDTNotes: (Same as: Antivert) Inactive 01/02/2018 [facility] Saline Flush 0.9% 10 mL, Route: IVP, Drug Form: INJ, Dosing Weight 59.659, kg, PRN, PRN Line Flush, Start date: 01/02/18 1:37:00 CDT, Duration: 30 day, Stop date: 02/01/18 1:36:00 CDTNotes: (Same as: BD Posiflush) Inactive 01/02/2018 [facility] NS (Bolus) IV 500 mL, 500 ml/hr, Infuse Over: 1 hr, Route: IV, 500, Drug form: INJ, ONCE, Priority: STAT, Dosing Weight 59.659 kg, Start date: 01/02/18 1:34:00 CDT, Stop date: 01/02/18 1:34:00 CDT Inactive 01/02/2018 [facility] Saline Flush 0.9% 10 mL, Route: IVP, Drug Form: INJ, Dosing Weight 59.659, kg, PRN, PRN Line Flush, Start date: 01/02/18 1:33:00 CDT, Duration: 30 day, Stop date: 02/01/18 1:32:00 CDTNotes: (Same as: BD Posiflush) Inactive 01/02/2018 [facility] Hydralazine Hydrochloride 50 MG Oral Tablet 50 mg=1 tab, PO, TID, Hold if SBP is less than 110 mmhg, # 90 tab, 3 Refill(s), [id number] 12/21/2017 [facility] metoprolol tartrate 25 mg oral tablet 25 mg=1 tab, PO, BID, # 60 tab, 0 Refill(s), [id number] Active 12/21/2017 [facility] lisinopril 20 mg oral tablet 20 mg=1 tab, PO, Daily, # 30 tab, 0 Refill(s), [id number] Active 12/21/2017 [facility] Levofloxacin 500 MG Oral Tablet [Levaquin] 500 mg=1 tab, PO, Q48H, X 14 day, # 7 tab, 0 Refill(s), [id number] Active 12/21/2017 [facility] Metronidazole 500 MG Oral Tablet 500 mg=1 tab, PO, ABXQ8H, X 14 day, # 42 tab, 0 Refill(s), [id number] Active 12/21/2017 [facility] Cathflo Activase 2 mg injection 2 [...] mg Product Wasted: ___ mg Inactive 12/21/2017 [facility] Cathflo Activase 2 mg injection 2 [...] mg Product Wasted: ___ mg Inactive 12/21/2017 [facility] vancomycin + Sodium Chloride 0.9% IV [...] mg Product Wasted: ___ mg Inactive 12/19/2017 [facility] Gibson packet 1 pkt, Route: PO, Drug Form: PWDR, Dosing Weight 59.659, kg, BID-Before Meals, Start date: 12/19/17 16:30:00 CDT, Duration: 14 day, Stop date: 01/02/18 7:30:00 CDTNotes: (Same as: [place]) No Longer Active 12/19/2017 [facility] Flagyl 500 mg, 1 tab, Route: PO, Drug form: TAB, ABXQ8H, Dosing Weight 59.659, kg, Start date: 12/19/17 15:00:00 CDT, Duration: 14 day, Stop date: 01/02/18 7:00:00 CDT, ABX Indication: Skin/Soft Tissue Infecti onNotes: (Same as: Flagyl) Take with food/ avoid alcohol No Longer Active 12/19/2017 [facility] Glucagon 1 mg, Route: IM, PRN, Dosing Weight 59.659, kg, PRN Blood Glucose Results, Start date: 12/18/17 21:14:00 CDT, Duration: 30 day, Stop date: 01/17/18 21:13:00 CDT Inactive 12/19/2017 [facility] Dextrose 50% Syringe 50 mL, Route: IVP, Dosing Weight 59.659, kg, PRN, PRN Blood Glucose Results, Start date: 12/18/17 21:14:00 CDT, Duration: 30 day, Stop date: 01/17/18 21:13:00 CDT Inactive 12/19/2017 [facility] Insulin Lispro 4 unit, 0.04 mL, [...] days from Date No Longer Active 12/19/2017 [facility] ondansetron (ANES) Route: IV, Drug form: INJ, ONCE, Stop date: 12/18/17 15:56:00 CDT Inactive 12/18/2017 [facility] midazolam (ANES) Route: IV, Drug form: SOLN, ONCE, Stop date: 12/18/17 15:56:00 CDT Inactive 12/18/2017 [facility] lidocaine (ANES) Route: IV, Drug form: INJ, ONCE, Stop date: 12/18/17 15:56:00 CDT Inactive 12/18/2017 [facility] fentaNYL (ANES) Route: IV, Drug form: INJ, ONCE, Stop date: 12/18/17 15:56:00 CDT Inactive 12/18/2017 [facility] propofol (ANES) Route: IV, Drug form: INJ, ONCE, Stop date: 12/18/17 15:56:00 CDT Inactive 12/18/2017 [facility] sodium chloride (ANES) 10 mL Route: IV, Drug Form: INJ, Start date: 12/18/17 15:06:00 CDT, Stop date: 12/18/17 16:06:00 CDT Inactive 12/18/2017 [facility] Albuterol 0.833 MG/ML / Ipratropium [place] 0.167 MG/ML Inhalant Solution 3 mL, Route: NEB, Dosing Weight 59.659, kg, ONCE, STAT, Start date: 12/18/17 15:06:00 CDT, Stop date: 12/18/17 15:06:00 CDT Inactive 12/18/2017 [facility] Sodium Chloride 0.9% IV 500 mL 500 mL, Rate: 25 ml/hr, Infuse over: 20 hr, Route: IV, Dosing Weight 59.659 kg, Total Volume: 500, Start date: 12/18/17 15:06:00 CDT, Duration: 30 day, Stop date: 01/17/18 15:05:00 CDT, 1.72, m2 Inactive 12/18/2017 [facility] vancomycin + Dextrose 5% in Water [...] Wasted: ___ mg No Longer Active 12/16/2017 [facility] Ondansetron 4 mg, Route: IVP, ONCE, Dosing Weight 59.659, kg, PRN Nausea & Vomiting, Start date: 12/15/17 11:50:00 CDT Inactive 12/15/2017 [facility] Naloxone 0.4 mg, Route: IVP, Q2MIN, Dosing Weight 59.659, kg, PRN Narcotic Reversal, Start date: 12/15/17 11:50:00 CDT, Duration: 8 doses or times, Stop date: Limited # of times Inactive 12/15/2017 [facility] Oxycodone 5 mg, Route: PO, Drug form: TAB, Q4H, Dosing Weight 59.659, kg, PRN Pain Score 4-6, Start date: 12/15/17 11:50:00 CDT, Duration: 30 day, Stop date: 01/14/18 11:49:00 CDT Inactive 12/15/2017 [facility] Metoprolol 1 mg, Route: IVP, Q5Min, Dosing Weight 59.659, kg, PRN Other -See Comment, Start date: 12/15/17 11:50:00 CDT, Duration: 5 doses or times, Stop date: Limited # of times Inactive 12/15/2017 [facility] Flumazenil 0.2 mg, Route: IVP, PRN, Dosing Weight 59.659, kg, PRN Benzodiazepine Reversal, Initial dose, Start date: 12/15/17 11:50:00 CDT, Duration: 30 day, Stop date: 01/14/18 11:49:00 CDT Inactive 12/15/2017 [facility] Fentanyl 25 microgram, Route: IVP, Q5Min, Dosing Weight 59.659, kg, PRN Pain Score 4-6, Priority: Routine, Start date: 12/15/17 11:50:00 CDT, Duration: 4 doses or times, Stop date: Limited # of times Inactive 12/15/2017 [facility] protamine (ANES) Route: IV, Drug form: INJ, ONCE, Stop date: 12/15/17 11:36:00 CDT Inactive 12/15/2017 [facility] normal saline 0.9% IV 1,000 mL 1,000 mL, Rate: 100 ml/hr, Infuse over: 10 hr, Route: IV, Dosing Weight 59.659 kg, Total Volume: 1,000, Start date: 12/15/17 11:31:00 CDT, Duration: 30 day, Stop date: 01/14/18 11:30:00 CDT, 1.72, m2 No Longer Active 12/15/2017 [facility] Hydromorphone 2 mg, 1 tab, Route: PO, Drug form: TAB, Q4H, Dosing Weight 59.659, kg, PRN Pain Score 7-10, Start date: 12/15/17 11:31:00 CDT, Stop date: 01/14/18 11:30:00 CDTNotes: (Same as: Dilaudid) No Longer Active 12/15/2017 [facility] Acetaminophen 325 MG / Hydrocodone Bitartrate 5 MG Oral Tablet 1 tab, Route: PO, Drug Form: TAB, Dosing Weight 59.659, kg, Q4H, PRN Pain Score 4-6, Start date: 12/15/17 11:31:00 CDT, Duration: 30 day, Stop date: 01/14/18 11:30:00 CDTNotes: (Same as: [place] 325/5) Do not exceed 4gm/day of acetaminophen. No Longer Active 12/15/2017 [facility] Acetaminophen 325 MG / Hydrocodone Bitartrate 10 MG Oral Tablet 2 tab, Route: PO, Drug Form: TAB, Dosing Weight 59.659, kg, Q4H, PRN Pain Score 7-10, Start date: 12/15/17 11:31:00 CDT, Duration: 30 day, Stop date: 01/14/18 11:30:00 CDTNotes: Do not exceed 4gm/day of acetaminophen. (Same as: [place] 325/10) No Longer Active 12/15/2017 [facility] Calcium Chloride 0.0014 MEQ/ML / Potassium Chloride 0.004 MEQ/ML / Sodium Chloride 0.103 MEQ/ML / Sodium Lactate 0.028 MEQ/ML Injectable Solution 1,000 mL, Rate: 100 ml/hr, Infuse over: 10 hr, Route: IV, Dosing Weight 59.659 kg, Total Volume: 1,000, Start date: 12/15/17 11:31:00 CDT, Duration: 30 day, Stop date: 01/14/18 11:30:00 CDT, 1.72, m2 No Longer Active 12/15/2017 [facility] ondansetron (ANES) Route: IV, Drug form: INJ, ONCE, Stop date: 12/15/17 11:30:00 CDT Inactive 12/15/2017 [facility] metoclopramide (ANES) Route: IV, Drug form: INJ, ONCE, Stop date: 12/15/17 11:25:00 CDT Inactive 12/15/2017 [facility] midazolam (ANES) Route: IV, Drug form: SOLN, ONCE, Stop date: 12/15/17 11:25:00 CDT Inactive 12/15/2017 [facility] fentaNYL (ANES) Route: IV, Drug form: INJ, ONCE, Stop date: 12/15/17 11:25:00 CDT Inactive 12/15/2017 [facility] 72 HR Scopolamine 0.0139 MG/HR Transdermal Patch 1 patch, Route: TOP, Drug Form: ERFILM, Dosing Weight 59.659, kg, ONCE, Start date: 12/15/17 11:01:00 CDT, Stop date: 12/15/17 11:01:00 CDT Inactive 12/15/2017 [facility] Sodium Chloride 0.9% IV 500 mL 500 mL, Rate: 25 ml/hr, Infuse over: 20 hr, Route: IV, Dosing Weight 59.659 kg, Total Volume: 500, Start date: 12/15/17 10:46:00 CDT, Duration: 1 day, Stop date: 12/16/17 10:45:00 CDT, 1.72, m2 No Longer Active 12/15/2017 [facility] Sodium Chloride 0.9% IV (ANES) 500 mL Route: IV, Total Volume: 500, Start date: 12/15/17 10:40:00 CDT, Stop date: 12/15/17 11:40:00 CDT Inactive 12/15/2017 [facility] cadexomer iodine 0.009 MG/MG Topical Gel [Iodosorb] 1 appl, Route: TOP, Daily, Drug form: GEL, Start date: 12/14/17 9:00:00 CDT, Duration: 30 day, Stop date: 01/12/18 9:00:00 CDTNotes: Same as; Iodosorb FOR EXTERNAL USE ONLY Non-Formulary Drug No Longer Active 12/14/2017 [facility] Sodium Chloride 0.9% (titrate) 250 mL 250 mL, Rate: To prime line and flush remaining blood products., Dosing Weight 59.659, kg, Route: IV, Total Volume: 250, Priority: Routine, Start Date: 12/14/17 7:13:00 CDT, Duration: 1 day, Stop date: 12/15/17 7:12:00 CDT, Replace Every: 24 hr No Longer Active 12/14/2017 [facility] cefepime 1 gm, Route: IVPB, [id number], Dosing Weight 59.659, kg, (CrCl 10 - 29 ml/min), Start date: 12/13/17 23:00:00 CDT, Duration: 10 day, Stop date: 12/22/17 23:00:00 CDT, ABX Indication: Bone/Joint InfectionNotes: (Same As: Maxipime) MEDICATION WASTE Product Size: 1000 mg Product Wasted: ___ mg No Longer Active 12/14/2017 [facility] Clindamycin 900 mg, 50 mL, Route: IVPB, Drug form: INJ, ABXQ8H, Dosing Weight 59.659, kg, Start date: 12/13/17 23:00:00 CDT, Duration: 14 day, Stop date: 12/27/17 12:00:00 CDT, ABX Indication: Skin/Soft Tissue I nfection No Longer Active 12/14/2017 [facility] Maxipime + sterile water 10 mL 1 gm, Route: IV, ONCE, Start date: 12/13/17 22:21:00 CDT, Stop date: 12/13/17 22:21:00 CDT, ABX Indication: Bone/Joint InfectionNotes: (Same As: Maxipime) MEDICATION WASTE Product Size: 1000 mg Product Wasted: ___ mg No Longer Active 12/14/2017 [facility] vancomycin + Sodium Chloride 0.9% IV 100 mL 500 mg, Route: IVPB, Q-, Start date: 12/13/17 17:00:00 CDT, Stop date: 01/11/18 17:00:00 CDT, ABX Indication: Skin/Soft Tissue InfectionNotes: TIME CRITICAL MEDICATION (Same As: Vancocin) For adult patients only: Round to nearest 250 mg per Medical Staff approval No Longer Active 12/13/2017 [facility] Epogen 10,000 unit, 1 mL, Route: IV, Drug form: INJ, Q-Sa, Dosing Weight 59.659, kg, Start date: 12/13/17 17:00:00 CDT, Stop date: 01/11/18 17:00:00 CDTNotes: (Same as: Procrit) epoetin ruddy 09452 unit/1 ml VL. For dialysis use only. (Procrit) WASTE: F/P - Red; E -Red MEDICATION WASTE Product Size: 99752 unit Product Wasted: ___ unit No Longer Active 12/13/2017 [facility] Lisinopril 20 mg, 1 tab, Route: PO, Drug form: TAB, Daily, Dosing Weight 61.364, kg, Start date: 12/13/17 9:00:00 CDT, Duration: 30 day, Stop date: 01/11/18 9:00:00 CDTNotes: (Same as: Prinivil, Zestril) No Longer Active 12/13/2017 [facility] Zosyn 3.375 gm, Route: IVPB, [id number], Dosing Weight 61.364, kg, CrCl Notes: (Same as: Zosyn) Dosing based on Piperacillin component MEDICATION WASTE Product Size: 3375 mg Product Wasted: ___ mg Inactive 12/13/2017 [facility] heparin 5,000 unit, 1 mL, Route: SUB-Q, Drug form: INJ, Q8H, Dosing Weight 61.364, kg, Start date: 12/13/17 0:00:00 CDT, Duration: 30 day, Stop date: 01/11/18 16:00:00 CDTNotes: porcine heparin No Longer Active 12/13/2017 [facility] Vancomycin 1 ea, Route: MISC, ONCALL, Dosing Weight 61.364, kg, Start date: 12/12/17 23:00:00 CDT, Duration: 7 day, Stop date: 12/19/17 22:59:00 CDT, Pharmacy to dose, ABX Indication: Skin/Soft Tissue Infection Inactive 12/13/2017 [facility] vancomycin + Dextrose 5% in Water [...] Wasted: ___ mg No Longer Active 12/13/2017 [facility] Insulin Lispro 4 unit, 0.04 mL, [...] days from Date No Longer Active 12/13/2017 [facility] Glucagon 1 mg, Route: IM, Drug form: PDR/INJ, PRN, Dosing Weight 61.364, kg, PRN Blood Glucose Results, Start date: 12/12/17 22:10:00 CDT, Duration: 30 day, Stop date: 01/11/18 22:09:00 CDT No Longer Active 12/13/2017 [facility] Dextrose 50% Syringe 12.5 gm, 25 mL, Route: IVP, Drug Form: INJ, Dosing Weight 61.364, kg, PRN, PRN Blood Glucose Results, Start date: 12/12/17 22:10:00 CDT, Duration: 30 day, Stop date: 01/11/18 22:09:00 CDT No Longer Active 12/13/2017 [facility] metoprolol tartrate 25 mg, 1 tab, Route: PO, Drug form: TAB, Q12H, Dosing Weight 61.364, kg, Priority: NOW, Start date: 12/12/17 22:08:00 CDT, Duration: 30 day, Stop date: 01/11/18 21:00:00 CDTNotes: (Same as: Lopressor) No Longer Active 12/13/2017 [facility] Vasotec 2.5 mg, 2 mL, Route: IVP, Drug form: INJ, Q6H, Dosing Weight 61.364, kg, PRN Hypertension, Start date: 12/12/17 22:07:00 CDT, Duration: 30 day, Stop date: 01/11/18 22:06:00 CDTNotes: (Same as: Vasotec-IV) No Longer Active 12/13/2017 [facility] Hydralazine 10 mg, 0.5 mL, Route: IV, Drug form: INJ, Q4H, Dosing Weight 61.364, kg, PRN Hypertension, Start date: 12/12/17 22:07:00 CDT, Duration: 30 day, Stop date: 01/11/18 22:06:00 CDTNotes: (Same as: Apresoline) Push over 5 minutes No Longer Active 12/13/2017 [facility] mannitol 25% intravenous solution 12.5 gm, 50 mL, Route: IV, Drug form: INJ, ONCALL, Start date: 12/12/17 22:00:00 CDT, Duration: 12 hr, Stop date: 12/13/17 9:59:00 CDTNotes: (Same as: Osmitrol) Infuse through 5 micron or smaller filter WASTE: F/P - Sink; E - Municipal Trash Bin Inactive 12/13/2017 [facility] Mannitol 25 gm, Route: IVPB, ONCE, Dosing Weight 61.364, kg, Start date: 12/12/17 21:18:00 CDT, Stop date: 12/12/17 21:18:00 CDT Inactive 12/13/2017 [facility] Dextrose 50% Syringe 25 gm, 50 mL, Route: IVP, Drug Form: INJ, Dosing Weight 61.364, kg, ONCE, STAT, Start date: 12/12/17 19:06:00 CDT, Stop date: 12/12/17 19:06:00 CDT Inactive 12/13/2017 [facility] Insulin regular 5 unit, 0.05 mL, Route: IVP, Drug form: INJ, ONCE, Dosing Weight 61.364, kg, Priority: STAT, Start date: 12/12/17 19:06:00 CDT, Stop date: 12/12/17 19:06:00 CDTNotes: (Same as: Humulin R and NovoLIN R) WASTE: F/P - Black; E - Municipal Trash Bin (Do not shake) Inactive 12/13/2017 [facility] Calcium Gluconate 1 gm, 10 mL, Route: IVPB, ONCE, Dosing Weight 61.364, kg, Priority: STAT, Start date: 12/12/17 19:06:00 CDT, Stop date: 12/12/17 19:06:00 CDTNotes: WASTE: F/P - Sink; E - Municipal Trash Bin Inactive 12/13/2017 [facility] Furosemide 40 mg, 4 mL, Route: IVP, Drug form: INJ, ONCE, Dosing Weight 61.364, kg, Priority: STAT, Start date: 12/12/17 19:06:00 CDT, Stop date: 12/12/17 19:06:00 CDTNotes: (Same as: Lasix) MEDICATION WASTE Product Size: 40 mg Product Wasted: ___ mg Inactive 12/13/2017 [facility] Albuterol 0.83 MG/ML Inhalant Solution 20 mg, Route: NEB, ONCE, Dosing Weight 61.364, kg, Priority: STAT, Start date: 12/12/17 19:06:00 CDT, Stop date: 12/12/17 19:06:00 CDT Inactive 12/13/2017 [facility] Sodium Bicarbonate 50 mEq, 50 mL, Route: IVP, Drug form: INJ, ONCE, Dosing Weight 61.364, kg, Priority: STAT, Start date: 12/12/17 19:06:00 CDT, Stop date: 12/12/17 19:06:00 CDTNotes: (sodium bicarb 8.4% (1 mEq/ml) 50 ml syringe) Inactive 12/13/2017 [facility] Sodium polystyrene sulfonate 15 gm, 60 mL, Route: PO, Drug form: SUSP, ONCE, Dosing Weight 61.364, kg, Priority: STAT, Start date: 12/12/17 19:06:00 CDT, Stop date: 12/12/17 19:06:00 CDTNotes: (sodium polystyrene sulfonate 15 gm/60 ml JUSTIN) Shake well before use. (Same as: Kayexalate, SPS) Inactive 12/13/2017 [facility] Saline Flush 0.9% 10 mL, Route: IVP, Drug Form: INJ, Dosing Weight 61.364, kg, PRN, PRN Line Flush, Start date: 12/12/17 19:06:00 CDT, Duration: 30 day, Stop date: 01/11/18 19:05:00 CDTNotes: (Same as: BD Posiflush) No Longer Active 12/13/2017 [facility] Zosyn 3.375 gm, Route: IVPB, ONCE, Dosing Weight 61.364, kg, Priority: STAT, Start date: 12/12/17 18:46:00 CDT, Stop date: 12/12/17 18:46:00 CDT, ABX Indication: Skin/Soft Tissue InfectionNotes: (Same as: Zosyn) Dosing based on Piperacillin component MEDICATION WASTE Product Size: 3375 mg Product Wasted: ___ mg Inactive 12/12/2017 [facility] Vancomycin 1,000 mg, Route: IVPB, ONCE, [...] mg Product Wasted: ___ mg Inactive 12/12/2017 [facility] Hydralazine 20 mg, 1 mL, Route: IVP, Drug form: INJ, ONCE, Dosing Weight 61.364, kg, Priority: STAT, Start date: 12/12/17 18:46:00 CDT, Stop date: 12/12/17 18:46:00 CDTNotes: (Same as: Apresoline) Push over 5 minutes Inactive 12/12/2017 [facility] Nifediac CC Tablet Extended Release 24 Hour 60 MG Give 1 tablet by mouth one time a day for htn hold for sbp less than 110 and or HR less than 60 Oral Active 11/25/2017 [facility]: [facility] Iron Tablet 325 (65 Fe) MG Give 1 tablet by mouth one time a day for anemia Oral Active 11/25/2017 [facility]: [facility] Losartan Potassium Tablet 50 MG Give 1 tablet by mouth one time a day for htn hold for SBP less than 110 and or HR less than 60 Oral Active 11/25/2017 [facility]: [facility] Aspirin Tablet 81 MG Give 1 tablet by mouth one time a day for afib Oral Active 11/25/2017 [facility]: [facility] Plavix Tablet 75 MG Give 1 tablet by mouth one time a day for afib Oral Active 11/25/2017 [facility]: [facility] Pepcid Tablet 20 MG Give 1 tablet by mouth one time a day for gerd Oral Active 11/25/2017 [facility]: [facility] Lasix Tablet 40 MG Give 1 tablet by mouth two times a day for edema Oral Active 11/25/2017 [facility]: [facility] Levemir FlexPen Solution Pen-injector 100 UNIT/ML Inject 10 unit subcutaneously two times a day for dm Subcutaneous Active 11/25/2017 [facility]: [facility] Atorvastatin Calcium Tablet 40 MG Give 1 tablet by mouth at bedtime for hld Oral Active 11/25/2017 [facility]: [facility] Coreg Tablet 12.5 MG Give 1 tablet by mouth every 12 hours for htn hold for SBP less than 110 and or HR less than 60 Oral Active 11/25/2017 [facility]: [facility] Zyvox Tablet 600 MG Give 1 tablet by mouth every 12 hours for gangrene Oral Active 11/25/2017 [facility]: [facility] HydrALAZINE HCl Tablet 25 MG Give 1 tablet by mouth every 6 hours for htn Hold for SBP less than 110 and or HR less than 60 Oral Active 11/24/2017 [facility]: [facility] Magnesium Oxide Tablet 400 MG Give 1 tablet by mouth two times a day for supplement Oral Active 11/24/2017 [facility]: [facility] LORazepam Tablet 0.5 MG Give 1 tablet by mouth two times a day for anxiety hold for sedation Oral Active 11/24/2017 [facility]: [facility] Sevelamer HCl Tablet 800 MG Give 1 tablet by mouth three times a day for supplement Oral Active 11/24/2017 [facility]: [facility] Heparin Sodium (Porcine) Solution 5000 UNIT/ML Inject 1 ml subcutaneously every 8 hours for prophylactic Injection Active 11/24/2017 [facility]: [facility] NovoLOG Mix 70/30 FlexPen Suspension Pen-injector (70-30) 100 UNIT/ML Inject as per sliding scale: if 200 - 250=2 unit; 251 - 300=4 unit; 301 - 350=6 unit; 351 - 400=8 unit, subcutaneously four times a day for dm Subcutaneous Active 11/24/2017 [facility]: [facility] CloNIDine HCl Tablet 0.1 MG Give 1 tablet by mouth every 6 hours as needed for htn Give for SBP greater than 160 Oral Active 11/24/2017 [facility]: [facility] [place] Tablet 10-325 MG Give 1 tablet by mouth every 6 hours as needed for pain Oral Active 11/24/2017 [facility]: [facility] Vancomycin HCl Solution Use 750 mg intravenously one time a day every Mon, Wed, Fri for sepsis until 10/09/2017 23:59 Give MWF, check trough after third dose Intravenous Active 10/06/2017 [facility]: [facility] Levemir FlexPen Solution Pen-injector 100 UNIT/ML Inject 8 unit subcutaneously every 12 hours for DM Subcutaneous Active 10/03/2017 [facility]: [facility] Aspirin EC Tablet Delayed Release 81 MG Give 1 tablet by mouth one time a day for Preventative Oral Active 09/29/2017 [facility]: [facility] Vancomycin HCl Solution Use 750 mg intravenously one time a day every Mon, Wed, Fri for sepsis for 8 Days Give MWF, check trough after third dose Intravenous Active 09/29/2017 [facility]: [facility] Polyethylene Glycol 3350 Kit Give 17 gram by mouth one time a day for constipation Oral Active 09/28/2017 [facility]: [facility] Famotidine Tablet 20 MG Give 1 tablet by mouth one time a day for GERD Oral Active 09/28/2017 [facility]: [facility] Amiodarone HCl Tablet 400 MG Give 1 tablet by mouth one time a day for afib Oral Active 09/28/2017 [facility]: [facility] Furosemide Tablet 20 MG Give 1 tablet by mouth one time a day for CHF Oral Active 09/28/2017 [facility]: [facility] Ferrous Sulfate Tablet 325 (65 Fe) MG Give 1 tablet by mouth one time a day for supplement Oral Active 09/28/2017 [facility]: [facility] Aspirin Tablet 81 MG Give 1 tablet by mouth one time a day for prophylactic [place] Oral Inactive 09/28/2017 [facility]: [facility] Cadexomer Iodine Gel 0.9 % Apply to Bilateral feet topically one time a day for wounds External Active 09/28/2017 [facility]: [facility] Silver Sulfadiazine Cream 1 % Apply to bilat feet topically one time a day for wounds External Active 09/28/2017 [facility]: [facility] Sevelamer HCl Tablet 800 MG Give 1 tablet by mouth three times a day for dialysis give with meals Oral Active 09/28/2017 [facility]: [facility] HydrALAZINE HCl Tablet 50 MG Give 1 tablet by mouth every 8 hours for HTN Hold if SBP is less than 110 and HR less than 60 Oral Active 09/28/2017 [facility]: [facility] Senna-Docusate Sodium Tablet 8.6-50 MG Give 1 tablet by mouth at bedtime for constipation Oral Active 09/28/2017 [facility]: [facility] NovoLOG FlexPen Solution Pen-injector 100 UNIT/ML Inject [...] DM Subcutaneous Active 09/28/2017 [facility]: [facility] Atorvastatin Calcium Tablet 40 MG Give 1 tablet by mouth at bedtime for HLD Oral Active 09/28/2017 [facility]: [facility] Nifedical XL Tablet Extended Release 24 Hour 30 MG Give 1 tablet by mouth every 12 hours for HTN Hold if SBP is less than 110 and HR less than 60 Oral Active 09/28/2017 [facility]: [facility] Carvedilol Tablet 12.5 MG Give 1 tablet by mouth every 12 hours for HTN Hold if SBP is less than 110 and HR less than 60 Oral Active 09/28/2017 SNF: [facility] Levemir FlexPen Solution Pen-injector 100 UNIT/ML Inject 6 unit subcutaneously every 12 hours for DM Subcutaneous Active 09/28/2017 SNF: [facility] Heparin Sodium (Porcine) Solution 5000 UNIT/ML Inject 1 ml subcutaneously every 12 hours for blood thinner for 7 Days Injection Active 09/28/2017 SNF: [facility] Piperacillin Sod-Tazobactam So Solution Reconstituted 3.375 (3-0.375) GM Use 1 vial intravenously every 12 hours for sepsis for 8 Days Intravenous Active 09/28/2017 SNF: [facility] Blood-Glucose Meter Precision Xtra Glucometer Use as directed.. Active 07/12/2017 [facility] Blood Sugar Diagnostic Strips Precision Xtra Test Strips Use 2 times weekly (once per day on Mon,Thurs) to test blood sugar. Active 07/12/2017 [facility] Lancets 28 Gauge Use 2 times weekly as directed. Active 07/12/2017 [facility] Aspirin 81 Mg Chewable Tablet Chew and swallow 1 tablet by mouth daily. Active 07/12/2017 [facility] Atorvastatin 40 Mg Tablet Take 2 tablets by mouth at bedtime nightly. Oral Active 07/12/2017 [facility] Hydralazine 25 Mg Tablet Take 1 tablet by mouth 3 times daily. Oral Active 07/12/2017 [facility] Tamsulosin 0.4 Mg Capsule Take 1 capsule by mouth daily for 30 days. Oral No Longer Active 07/12/2017 [facility] Isosorbide Mononitrate Er 30 Mg Tablet,Extended Release 24 Hr Take 1 tablet by mouth every morning for 30 days. Oral No Longer Active 07/12/2017 [facility] Ferrous Sulfate 325 Mg (65 Mg Iron) Tablet Take 1 tablet by mouth daily for 30 days. Oral No Longer Active 07/12/2017 [facility] Ascorbic Acid (Vitamin C) 250 Mg Tablet Take 1 tablet by mouth daily for 30 days. Oral No Longer Active 07/12/2017 [facility] Carvedilol 25 Mg Tablet Take 1 tablet by mouth 2 times daily for 30 days. Oral No Longer Active 07/12/2017 [facility] Bumetanide 1 Mg Tablet Take 1 tablet by mouth 2 times daily. Oral Active 07/12/2017 [facility] Furosemide 40 Mg Tablet Lasix 40 Mg Tablet Take 1 tablet by mouth daily for 7 days. Oral Inactive 05/31/2017 [facility] Clotrimazole 1 % Topical Solution Apply 1-2 drops to affected nails 2 times a day. Use a nail file to keep nails thin. Treatment may take up to 1 year. Active 04/18/2017 [facility] Benzonatate 100 Mg Capsule Tessalon Perles 100 Mg Capsule Take 1 capsule by mouth 3 times daily as needed for up to 7 days for Cough. Oral No Longer Active 03/27/2017 [facility] Atorvastatin 40 Mg Tablet Take 1 tablet by mouth at bedtime nightly. Oral No Longer Active 02/21/2017 [facility] insulin NPH (NOVOLIN N, HUMULIN N) 100 unit/mL injection Inject 10 units in the morning and 20 units in the evening. Active 02/21/2017 [facility] Insulin Syringe-Needle U-100 1/2 Ml 30 Gauge X 5/16" Ultra Comfort Insulin Syringe 1/2 Ml 30 Gauge X 5/16" Use to inject medication 2 times daily. Use a new syringe each time. Subcutaneous Active 02/21/2017 [facility] Novolog Flexpen U-100 Insulin Aspart 100 Unit/Ml Subcutaneous Twice daily under skin if sugars 201-250 - Inject 2 units ; if sugars 251- 300 - Inject 4 unit; if sugars 301-350 - Inject 6 units; If sugars 351-500 - inject 8 units; >500 call clinic. No Longer Active 01/26/2017 [facility] insulin detemir (LEVEMIR FLEXTOUCH) 100 unit/mL (3 mL) Pen Inject 5 Units under the skin daily for 184 days. Subcutaneous No Longer Active 01/26/2017 [facility] pen needle, diabetic (NOVOFINE) 30 gauge x 1/3" needles Inject under the skin 4 times daily Use as directed. Subcutaneous Inactive 01/26/2017 [facility] Hydralazine 25 Mg Tablet Take 3 tablets by mouth 3 times daily. Oral No Longer Active 01/26/2017 [facility] Carvedilol 25 Mg Tablet Coreg 25 Mg Tablet Take 1 tablet by mouth 2 times daily (with meals) Oral No Longer Active 01/26/2017 [facility] Ondansetron Hcl 4 Mg Tablet Zofran 4 Mg Tablet Take 1 tablet by mouth every 8 hours as needed for up to 7 days for Nausea. Oral No Longer Active 01/26/2017 [facility] Dexilant 30 Mg Capsule, Delayed Release Take 1 capsule by mouth daily. Oral Active 01/26/2017 [facility] Carvedilol 25 Mg Tablet Coreg 25 Mg Tablet Take 1 tablet by mouth 2 times daily (with meals) for 90 days. Oral No Longer Active 12/16/2016 [facility] esomeprazole (NEXIUM) 40 mg packet Take 1 Packet by mouth every morning (before breakfast). Oral No Longer Active 11/24/2016 [facility] Hydralazine 25 Mg Tablet Take 2 tablets by mouth 4 times daily. Oral No Longer Active 11/24/2016 [facility] insulin NPH (NOVOLIN N, HUMULIN N) 100 unit/mL injection Inject 12 Units under the skin every morning for 90 days. Subcutaneous No Longer Active 11/24/2016 [facility] Tramadol 50 Mg Tablet Take 1 tablet by mouth 4 times daily as needed for Pain. Oral No Longer Active 11/24/2016 [facility] Amlodipine 10 Mg Tablet Norvasc 10 Mg Tablet Take 1 tablet by mouth daily. Oral No Longer Active 11/24/2016 [facility] Aspirin 81 Mg Chewable Tablet Chew and swallow 1 tablet by mouth daily. No Longer Active 11/24/2016 [facility] Atorvastatin 40 Mg Tablet Take 1 tablet by mouth at bedtime nightly. Oral No Longer Active 11/24/2016 [facility] Blood Sugar Diagnostic Strips Use 3 times daily (before meals). Active 11/24/2016 [facility] Insulin Syringe-Needle U-100 1/2 Ml 28 Gauge Use as Directed.. No Longer Active 11/24/2016 [facility] Lancets 28 Gauge by MISCELLANEOUS route 3 times daily. Active 11/24/2016 [facility] Blood-Glucose Meter Use as directed.. Active 11/24/2016 [facility] Cholecalciferol (Vitamin D3) 1,000 Unit Tablet Take 2 tablets by mouth daily. Oral Active 11/24/2016 [facility] atorvastatin 40 mg oral tablet 40 mg=1 tab, PO, Bedtime, # 30 tab, 0 Refill(s) Active 04/05/2016 [facility] Aspirin 81 MG Enteric Coated Tablet 81 mg=1 tab, PO, Daily, # 30 tab, 0 Refill(s) Active 04/05/2016 [facility] lisinopril 20 mg oral tablet 20 mg=1 tab, PO, Daily, # 30 tab, 0 Refill(s) Active 04/05/2016 [facility] metoprolol tartrate 25 mg oral tablet 25 mg=1 tab, PO, BID, # 60 tab, 0 Refill(s) Active 04/05/2016 [facility] metoprolol tartrate 25 mg oral tablet 25 mg=1 tab, PO, BID, # 180 tab, 0 Refill(s) Inactive 04/05/2016 [facility] lisinopril 20 mg oral tablet 20 mg=1 tab, PO, Daily, # 30 tab, 0 Refill(s) Inactive 04/05/2016 [facility] atorvastatin 40 mg, 1 tab, Route: PO, Drug form: TAB, Bedtime, Dosing Weight 68.636, kg, Start date: 04/04/16 21:00:00 CDT, Duration: 30 day, Stop date: 05/03/16 21:00:00 CDTNotes: (Same as: Lipitor) No Longer Active 04/05/2016 [facility] Lopressor 25 mg, 1 tab, Route: PO, Drug form: TAB, Q12H, Dosing Weight 68.636, kg, Start date: 04/04/16 21:00:00 CDT, Duration: 30 day, Stop date: 05/04/16 9:00:00 CDTNotes: (Same as: Lopressor) No Longer Active 04/05/2016 [facility] Clonidine 0.1 mg, 1 tab, Route: PO, Drug form: TAB, Q8H, Dosing Weight 68.636, kg, PRN Hypertension, Start date: 04/04/16 16:27:00 CDT, Duration: 30 day, Stop date: 05/04/16 16:26:00 CDTNotes: (Same As: Catapres) No Longer Active 04/04/2016 [facility] Saline Flush 0.9% 10 ml, Route: IVP, Drug Form: INJ, Dosing Weight 69.545, kg, Q12H, Start date: 04/04/16 9:00:00 CDT, Duration: 30 day, Stop date: 05/03/16 21:00:00 CDTNotes: (Same as: BD Posiflush) No Longer Active 04/04/2016 [facility] Aspirin 81 MG Enteric Coated Tablet 81 mg, 1 tab, Route: PO, Drug form: ECTAB, Daily, Dosing Weight 69.545, kg, Start date: 04/04/16 9:00:00 CDT, Duration: 30 day, Stop date: 05/03/16 9:00:00 CDTNotes: Do not crush or chew. (Same As: Ecotrin) No Longer Active 04/04/2016 [facility] Famotidine 20 mg, 1 tab, Route: PO, Drug form: TAB, Q12H, Dosing Weight 69.545, kg, Start date: 04/04/16 9:00:00 CDT, Duration: 30 day, Stop date: 05/03/16 21:00:00 CDTNotes: (Same as: Pepcid) No Longer Active 04/04/2016 [facility] Insulin, Aspart, Human 8 unit, 0.08 [...] days from Date No Longer Active 04/04/2016 [facility] Glucagon 1 mg, Route: IM, Drug form: PDR/INJ, PRN, Dosing Weight 69.545, kg, PRN Blood Glucose Results, Start date: 04/04/16 1:15:00 CDT, Duration: 30 day, Stop date: 05/04/16 1:14:00 CDT No Longer Active 04/04/2016 [facility] Dextrose 50% Syringe 25 gm, 50 mL, Route: IVP, Drug Form: INJ, Dosing Weight 69.545, kg, PRN, PRN Blood Glucose Results, Start date: 04/04/16 1:15:00 CDT, Duration: 30 day, Stop date: 05/04/16 1:14:00 CDT No Longer Active 04/04/2016 [facility] Saline Flush 0.9% 10 ml, Route: IVP, Drug Form: INJ, Dosing Weight 69.545, kg, PRN, PRN Line Flush, Start date: 04/04/16 1:15:00 CDT, Duration: 30 day, Stop date: 05/04/16 1:14:00 CDTNotes: (Same as: BD Posiflush) No Longer Active 04/04/2016 [facility] Labetalol 10 mg, 2 mL, Route: IVP, Drug form: INJ, Q10Min, Dosing Weight 69.545, kg, PRN Hypertension, For SBP > 180 mmHg and/or DBP > 105 mmHg, Priority: Routine, Start date: 04/04/16 1:15:00 CDT, Duration: 30 day, Stop date: 05/04/16 1:14:00 CDTNotes: (Same as: Normodyne, Trandate) Push over 2 minutes Give bolus over 2-3 minutes. No Longer Active 04/04/2016 [facility] Morphine 2 mg, 1 mL, Route: IVP, Drug form: INJ, Q6H, Dosing Weight 69.545, kg, PRN Pain Score 6-10, Start date: 04/04/16 1:15:00 CDT, Duration: 30 day, Stop date: 05/04/16 1:14:00 CDTNotes: (Same as:MORPhine Sulfate) No Longer Active 04/04/2016 [facility] Aspirin 324 mg, Route: CHEW, Drug form: CHEWTAB, ONCE, Dosing Weight 69.545, kg, Priority: STAT, Start date: 04/04/16 0:04:00 CDT, Stop date: 04/04/16 0:04:00 CDT Inactive 04/04/2016 [facility] Nitroglycerin 0.02 MG/MG Topical Ointment 0.5 inch, Route: TOP, Drug Form: OINT, Dosing Weight 69.545, kg, ONCE, STAT, Start date: 04/03/16 22:30:00 CDT, Stop date: 04/03/16 22:30:00 CDTNotes: 1 gram is approximately 1 inch of nitroglycerin ointment (20 mg NTG per gram) (Same as:Nitro-Bid) Inactive 04/04/2016 [facility] Hydralazine 20 mg, 1 mL, Route: IVP, Drug form: INJ, ONCE, Dosing Weight 69.545, kg, Priority: STAT, Start date: 04/03/16 19:39:00 CDT, Stop date: 04/03/16 19:39:00 CDTNotes: (Same as: Apresoline) Push over 5 minutes Inactive 04/04/2016 [facility] Saline Flush 0.9% 10 mL, Route: IVP, Drug Form: INJ, Dosing Weight 69.545, kg, PRN, PRN Line Flush, Start date: 04/03/16 19:39:00 CDT, Duration: 30 day, Stop date: 05/03/16 19:38:00 CDTNotes: (Same as: BD Posiflush) No Longer Active 04/04/2016 [facility] Allergies, Adverse Reactions, Alerts Substance Category Reaction Severity Reaction type Status Date Reported Comments Source No Known Medication Allergies Assertion Drug allergy REY Ansari Immunizations Immunization Date Given Site Status Last Updated Comments Source tuberculin skin test; purified protein derivative solution, intradermal 02/10/2018 james Ren [facility]: [facility] influenza, high dose seasonal, preservative-free 09/28/2017 Not Given SNF: [facility] pneumococcal conjugate vaccine, 13 valent 09/28/2017 Not Given SNF: [facility] tuberculin skin test; purified protein derivative solution, intradermal 09/27/2017 james Belcher [facility]: [facility] Influenza Vaccine 07/12/2017 Not Given Deferred: Patient Refused [facility] Herpes Zoster Vaccine In Clinic 02/21/2017 [facility] PNEUMOCOCCAL 23-VALPS VACCINE 25 MCG/0.5 ML INJECTION 10/03/2016 [facility] Pneumococcal 13-valent conj 0.5 mL injection 08/13/2015 Not Given Deferred: Patient already had this immunization - [facility] Tetanus Toxoid <Unspecified> 02/21/2014 [facility] PPV 23 (Pneumococcal Polysaccharide 23 Valent) 02/28/2012 [facility] TDap (Tetanus Toxoid, Reduced Diphtheria Toxoid And Acellular Pertussis, Absorbed) 02/28/2012 [facility] Results Order Name Results Value Reference Range Date Interpretation Comments Source IMMUNOLOGY Hep Bs Ag Negative *NA* (02/16/18 7:40 AM) Negative 02/16/2018 [facility] CHEM PANEL eGFR 9 02/16/2018 Result [...] should be multiplied by the estimated BMI. [facility] CHEM PANEL Albumin Lvl 2.3 3.5 - 5.0 02/16/2018 [facility] CHEM PANEL Bili Total 0.3 0.2 - 1.3 02/16/2018 [facility]M PANEL Alk Phos 120 39 - 136 02/16/2018 [facility] CHEM PANEL AST 20 0 - 37 02/16/2018 [facility] CHEM PANEL ALT 17 0 - 65 02/16/2018 [facility] CHEM PANEL Creatinine Lvl 6.32 0.50 - 1.40 02/16/2018 [facility] CHEM PANEL Sodium Lvl 146 135 - 145 02/16/2018 [facility] CHEM PANEL Potassium Lvl 5.6 3.5 - 5.1 02/16/2018 [facility] CHEM PANEL Chloride Lvl 110 95 - 109 02/16/2018 [facility] CHEM PANEL CO2 27 24 - 32 02/16/2018 [facility] CHEM PANEL Calcium Lvl 8.6 8.5 - 10.5 02/16/2018 [facility] CHEM PANEL Total Protein 6.5 6.4 - 8.4 02/16/2018 [facility] CHEM PANEL BUN 40 7 - 22 02/16/2018 [facility] CHEM PANEL Glucose Lvl 183 70 - 99 02/16/2018 [facility] CHEM PANEL B/C Ratio 6 6 - 25 02/16/2018 [facility] CHEM PANEL AGAP 14.6 10.0 - 20.0 02/16/2018 [facility] CHEM PANEL A/G Ratio 0.5 0.7 - 1.6 02/16/2018 [facility] CHEM PANEL Globulin 4.2 2.7 - 4.2 02/16/2018 [facility] HEMATOLOGY MCH 29.3 27.0 - 31.0 02/16/2018 [facility] HEMATOLOGY MCV 91.2 80.0 - 94.0 02/16/2018 [facility] HEMATOLOGY Platelet 210 133 - 450 02/16/2018 [facility] HEMATOLOGY RDW 20.9 11.5 - 14.5 02/16/2018 [facility] HEMATOLOGY MCHC 32.1 32.0 - 36.0 02/16/2018 [facility] HEMATOLOGY WBC 11.0 3.7 - 10.4 02/16/2018 [facility] HEMATOLOGY MPV 8.9 7.4 - 10.4 02/16/2018 [facility] HEMATOLOGY RBC 2.92 4.70 - 6.10 02/16/2018 [facility] HEMATOLOGY Hct 26.7 42.0 - 54.0 02/16/2018 [facility] HEMATOLOGY Hgb 8.6 14.0 - 18.0 02/16/2018 [facility] HEMATOLOGY Lymphocytes # 1.3 1.0 - 5.5 02/16/2018 [facility] HEMATOLOGY Basophils # 0.2 0.0 - 0.2 02/16/2018 [facility] HEMATOLOGY Eosinophils # 0.9 0.0 - 0.5 02/16/2018 [facility] HEMATOLOGY Monocytes # 1.6 0.0 - 0.8 02/16/2018 [facility] HEMATOLOGY Monocytes 14.4 2.0 - 12.0 02/16/2018 [facility] HEMATOLOGY Basophils 1.7 0.0 - 1.0 02/16/2018 [facility] HEMATOLOGY Eosinophils 8.0 0.0 - 4.0 02/16/2018 [facility] Segs-Bands # 7.0 1.5 - 8.1 02/16/2018 [facility] Lymphocytes 11.9 20.0 - 40.0 02/16/2018 [facility] Segs 64.0 45.0 - 75.0 02/16/2018 [facility] CARDIAC ENZYMES BNP 1652 <=100 pg/mL 02/15/2018 [facility] CHEM PANEL Magnesium Lvl 2.3 1.8 - 2.4 02/15/2018 [facility] CHEM PANEL Phosphorus 5.6 2.5 - 4.5 02/15/2018 [facility] CHEM PANEL eGFR 9 02/15/2018 Result [...] HEMATOLOGY Eosinophils 5.6 0.0 - 4.0 02/15/2018 [facility] HEMATOLOGY Basophils 1.6 0.0 - 1.0 02/15/2018 [facility] HEMATOLOGY Eosinophils # 0.7 0.0 - 0.5 02/15/2018 [facility] HEMATOLOGY Basophils # 0.2 0.0 - 0.2 02/15/2018 [facility] HEMATOLOGY Lymphocytes # 1.9 1.0 - 5.5 02/15/2018 [facility] HEMATOLOGY Monocytes # 1.7 0.0 - 0.8 02/15/2018 [facility] HEMATOLOGY Monocytes 12.9 2.0 - 12.0 02/15/2018 [facility] HEMATOLOGY Lymphocytes 14.1 20.0 - 40.0 02/15/2018 [facility] HEMATOLOGY Segs-Bands # 8.7 1.5 - 8.1 02/15/2018 [facility] Segs 65.8 45.0 - 75.0 02/15/2018 [facility] MCHC 32.3 32.0 - 36.0 02/15/2018 [facility] MPV 8.9 7.4 - 10.4 02/15/2018 [facility] RDW 20.9 11.5 - 14.5 02/15/2018 [facility] Platelet 231 133 - 450 02/15/2018 [facility] Hct 28.8 42.0 - 54.0 02/15/2018 [facility] Hgb 9.3 14.0 - 18.0 02/15/2018 [facility] RBC 3.14 4.70 - 6.10 02/15/2018 [facility] MCV 91.8 80.0 - 94.0 02/15/2018 [facility] MCH 29.7 27.0 - 31.0 02/15/2018 [facility] WBC 13.2 3.7 - 10.4 02/15/2018 [facility] Blood sugar Blood sugar 148 02/13/2018 SNF: [facility] TOXICOLOGY Amikacin Lvl 10.6 02/09/2018 [facility] ELECTROLYTES AGAP 13.6 10.0 - 20.0 02/09/2018 [facility] ELECTROLYTES CO2 28 24 - 32 02/09/2018 [facility] ELECTROLYTES Chloride Lvl 107 95 - 109 02/09/2018 [facility] ELECTROLYTES Calcium Lvl 8.2 8.5 - 10.5 02/09/2018 [facility] ELECTROLYTES Sodium Lvl 145 135 - 145 02/09/2018 [facility] ELECTROLYTES Creatinine Lvl 3.84 0.50 - 1.40 02/09/2018 [facility] ELECTROLYTES BUN 13 7 - 22 02/09/2018 [facility] ELECTROLYTES Potassium Lvl 3.6 3.5 - 5.1 02/09/2018 [facility] ELECTROLYTES Glucose Lvl 88 70 - 99 02/09/2018 [facility] ELECTROLYTES eGFR 16 02/09/2018 Result Comment: [...] should be multiplied by the estimated BMI. [facility] CHEM PANEL eGFR 21 02/08/2018 Result [...] should be multiplied by the estimated BMI. [facility] CHEM PANEL Sodium Lvl 141 135 - 145 02/08/2018 [facility] CHEM PANEL CO2 29 24 - 32 02/08/2018 [facility] CHEM PANEL BUN 7 7 - 22 02/08/2018 [facility] CHEM PANEL Glucose Lvl 117 70 - 99 02/08/2018 [facility] CHEM PANEL Calcium Lvl 8.6 8.5 - 10.5 02/08/2018 [facility] CHEM PANEL AGAP 9.6 10.0 - 20.0 02/08/2018 [facility] CHEM PANEL Potassium Lvl 3.6 3.5 - 5.1 02/08/2018 [facility] CHEM PANEL Creatinine Lvl 3.06 0.50 - 1.40 02/08/2018 [facility] CHEM PANEL Chloride Lvl 106 95 - 109 02/08/2018 [facility] HEMATOLOGY Lymphocytes # 1.9 1.0 - 5.5 02/08/2018 [facility] HEMATOLOGY Segs-Bands # 8.7 1.5 - 8.1 02/08/2018 [facility] HEMATOLOGY Basophils 1.0 0.0 - 1.0 02/08/2018 [facility] Basophils # 0.1 0.0 - 0.2 02/08/2018 [facility] HEMATOLOGY Monocytes # 1.8 0.0 - 0.8 02/08/2018 [facility] Eosinophils # 0.6 0.0 - 0.5 02/08/2018 [facility] Eosinophils 4.6 0.0 - 4.0 02/08/2018 [facility] Monocytes 13.3 2.0 - 12.0 02/08/2018 [facility] Segs 66.4 45.0 - 75.0 02/08/2018 [facility] Lymphocytes 14.7 20.0 - 40.0 02/08/2018 [facility] Hct 28.8 42.0 - 54.0 02/08/2018 [facility] MCV 90.2 80.0 - 94.0 02/08/2018 [facility] MCHC 31.6 32.0 - 36.0 02/08/2018 [facility] RDW 21.9 11.5 - 14.5 02/08/2018 [facility] MCH 28.5 27.0 - 31.0 02/08/2018 [facility] Platelet 177 133 - 450 02/08/2018 [facility] MPV 9.5 7.4 - 10.4 02/08/2018 [facility] WBC 13.1 3.7 - 10.4 02/08/2018 [facility] RBC 3.19 4.70 - 6.10 02/08/2018 [facility] Hgb 9.1 14.0 - 18.0 02/08/2018 [facility] CHEM PANEL Glucose Lvl 84 70 - 99 02/07/2018 [facility] CHEM PANEL eGFR 45 02/07/2018 Result [...] should be multiplied by the estimated BMI. [facility] CHEM PANEL CO2 30 24 - 32 02/07/2018 [facility] CHEM PANEL BUN 5 7 - 22 02/07/2018 [facility] CHEM PANEL Calcium Lvl 7.7 8.5 - 10.5 02/07/2018 [facility] CHEM PANEL Creatinine Lvl 1.61 0.50 - 1.40 02/07/2018 [facility] CHEM PANEL Sodium Lvl 144 135 - 145 02/07/2018 [facility] CHEM PANEL Potassium Lvl 3.8 3.5 - 5.1 02/07/2018 [facility] CHEM PANEL Chloride Lvl 106 95 - 109 02/07/2018 [facility] CHEM PANEL AGAP 11.8 10.0 - 20.0 02/07/2018 [facility] TOXICOLOGY Amikacin Lvl 4.6 02/07/2018 [facility] IMMUNOLOGY Hep Bs Ag Negative *NA* (02/05/18 6:37 AM) Negative 02/05/2018 [facility] TOXICOLOGY Amikacin Lvl 11.4 02/05/2018 [facility] Gram Stain Report No Wbc'S Or Organisms Seen 02/05/2018 [facility] Culture: Wound/Abscess w/Gram Stain No Growth 02/05/2018 [facility] RDW 20.8 11.5 - 14.5 02/04/2018 [facility] Platelet 145 133 - 450 02/04/2018 [facility] MPV 9.3 7.4 - 10.4 02/04/2018 [facility] Hct 28.4 42.0 - 54.0 02/04/2018 [facility] MCV 88.4 80.0 - 94.0 02/04/2018 [facility] MCH 28.4 27.0 - 31.0 02/04/2018 [facility] MCHC 32.1 32.0 - 36.0 02/04/2018 [facility] WBC 19.7 3.7 - 10.4 02/04/2018 [facility] RBC 3.21 4.70 - 6.10 02/04/2018 [facility] Hgb 9.1 14.0 - 18.0 02/04/2018 [facility] Lymphocytes # 1.9 1.0 - 5.5 02/04/2018 [facility] HEMATOLOGY Eosinophils 3.9 0.0 - 4.0 02/04/2018 [facility] HEMATOLOGY Basophils 1.2 0.0 - 1.0 02/04/2018 [facility] HEMATOLOGY Segs-Bands # 15.0 1.5 - 8.1 02/04/2018 [facility] HEMATOLOGY Monocytes # 1.8 0.0 - 0.8 02/04/2018 [facility] HEMATOLOGY Eosinophils # 0.8 0.0 - 0.5 02/04/2018 [facility] HEMATOLOGY Basophils # 0.2 0.0 - 0.2 02/04/2018 [facility] Anisocyte 1+ *ABN* (02/04/18 4:49 AM) None Seen 02/04/2018 [facility] Lymphocytes 9.6 20.0 - 40.0 02/04/2018 [facility] Segs 76.3 45.0 - 75.0 02/04/2018 [facility] Monocytes 9.0 2.0 - 12.0 02/04/2018 [facility] Plt Morph Normal (02/04/18 4:49 AM) 02/04/2018 [facility] RBC Morph See Note (02/04/18 4:49 AM) 02/04/2018 [facility] HEMATOLOGY Sed Rate 68 0 - 15 02/03/2018 [facility] IMMUNOLOGY C-REACTIVE PROTEIN 19.1 <=2.9 mg/L 02/03/2018 [facility] CHEM PANEL ALT 8 0 - 65 02/03/2018 [facility] CHEM PANEL Albumin Lvl 2.3 3.5 - 5.0 02/03/2018 [facility] CHEM PANEL AST 13 0 - 37 02/03/2018 [facility] CHEM PANEL Total Protein 6.7 6.4 - 8.4 02/03/2018 [facility] CHEM PANEL Alk Phos 100 39 - 136 02/03/2018 [facility] CHEM PANEL Bili Total 0.2 0.2 - 1.3 02/03/2018 [facility] CHEM PANEL A/G Ratio 0.5 0.7 - 1.6 02/03/2018 [facility] CHEM PANEL B/C Ratio 4 6 - 25 02/03/2018 [facility] CHEM PANEL Globulin 4.4 2.7 - 4.2 02/03/2018 [facility] MCHC 32.2 32.0 - 36.0 02/03/2018 [facility] HEMATOLOGY Platelet 100 133 - 450 02/03/2018 [facility] MPV 10.0 7.4 - 10.4 02/03/2018 [facility] RDW 16.7 11.5 - 14.5 02/03/2018 [facility] MCH 28.8 27.0 - 31.0 02/03/2018 [facility] WBC 19.2 3.7 - 10.4 02/03/2018 [facility] RBC 2.99 4.70 - 6.10 02/03/2018 [facility] Hgb 8.6 14.0 - 18.0 02/03/2018 [facility] Hct 26.7 42.0 - 54.0 02/03/2018 [facility] MCV 89.2 80.0 - 94.0 02/03/2018 [facility] Monocytes # 1.3 0.0 - 0.8 02/03/2018 [facility] Lymphocytes # 1.2 1.0 - 5.5 02/03/2018 [facility] Segs-Bands # 16.6 1.5 - 8.1 02/03/2018 [facility] Basophils 0.4 0.0 - 1.0 02/03/2018 [facility] Eosinophils 0.1 0.0 - 4.0 02/03/2018 [facility] Monocytes 6.9 2.0 - 12.0 02/03/2018 [facility] Lymphocytes 6.1 20.0 - 40.0 02/03/2018 [facility] Segs 86.5 45.0 - 75.0 02/03/2018 [facility] Basophils # 0.1 0.0 - 0.2 02/03/2018 [facility] CHEM PANEL Phosphorus 3.8 2.5 - 4.5 01/29/2018 [facility] CHEM PANEL Magnesium Lvl 1.9 1.8 - 2.4 01/29/2018 [facility] CHEM PANEL eGFR 16 01/29/2018 Result [...] should be multiplied by the estimated BMI. [facility] CHEM PANEL Chloride Lvl 97 95 - 109 01/29/2018 [facility] CHEM PANEL Calcium Lvl 11.5 8.5 - 10.5 01/29/2018 [facility] CHEM PANEL CO2 28 24 - 32 01/29/2018 [facility] CHEM PANEL BUN 19 7 - 22 01/29/2018 [facility] CHEM PANEL Sodium Lvl 132 135 - 145 01/29/2018 [facility] CHEM PANEL Glucose Lvl 101 70 - 99 01/29/2018 [facility] CHEM PANEL Creatinine Lvl 3.88 0.50 - 1.40 01/29/2018 [facility] CHEM PANEL Potassium Lvl 3.7 3.5 - 5.1 01/29/2018 [facility] CHEM PANEL AGAP 10.7 10.0 - 20.0 01/29/2018 [facility] HEMATOLOGY Basophils # 0.1 0.0 - 0.2 01/29/2018 [facility] HEMATOLOGY Eosinophils # 1.2 0.0 - 0.5 01/29/2018 [facility] Monocytes # 1.8 0.0 - 0.8 01/29/2018 [facility] Lymphocytes # 1.7 1.0 - 5.5 01/29/2018 [facility] Segs-Bands # 9.8 1.5 - 8.1 01/29/2018 [facility] Eosinophils 8.1 0.0 - 4.0 01/29/2018 [facility] Basophils 1.0 0.0 - 1.0 01/29/2018 [facility] Monocytes 12.3 2.0 - 12.0 01/29/2018 [facility] Lymphocytes 11.8 20.0 - 40.0 01/29/2018 [facility] Segs 66.8 45.0 - 75.0 01/29/2018 [facility] Platelet 129 133 - 450 01/29/2018 [facility] RDW 15.9 11.5 - 14.5 01/29/2018 [facility] MPV 10.2 7.4 - 10.4 01/29/2018 [facility] MCHC 32.5 32.0 - 36.0 01/29/2018 [facility] HEMATOLOGY Hgb 9.3 14.0 - 18.0 01/29/2018 [facility] HEMATOLOGY MCH 28.1 27.0 - 31.0 01/29/2018 [facility] HEMATOLOGY MCV 86.4 80.0 - 94.0 01/29/2018 [facility] HEMATOLOGY Hct 28.7 42.0 - 54.0 01/29/2018 [facility] HEMATOLOGY RBC 3.33 4.70 - 6.10 01/29/2018 [facility] HEMATOLOGY WBC 14.7 3.7 - 10.4 01/29/2018 [facility] TOXICOLOGY Amikacin Lvl 7.0 01/29/2018 [facility] MPV 10.0 7.4 - 10.4 01/27/2018 [facility] RDW 15.9 11.5 - 14.5 01/27/2018 [facility] Platelet 92 133 - 450 01/27/2018 [facility] MCV 86.9 80.0 - 94.0 01/27/2018 [facility] MCHC 33.5 32.0 - 36.0 01/27/2018 [facility] RBC 3.17 4.70 - 6.10 01/27/2018 [facility] Hgb 9.2 14.0 - 18.0 01/27/2018 [facility] MCH 29.1 27.0 - 31.0 01/27/2018 [facility] WBC 11.0 3.7 - 10.4 01/27/2018 [facility] Hct 27.5 42.0 - 54.0 01/27/2018 [facility] Monocytes 13.6 2.0 - 12.0 01/27/2018 [facility] HEMATOLOGY Eosinophils 12.3 0.0 - 4.0 01/27/2018 [facility] HEMATOLOGY Monocytes # 1.5 0.0 - 0.8 01/27/2018 [facility] HEMATOLOGY Eosinophils # 1.4 0.0 - 0.5 01/27/2018 [facility] HEMATOLOGY Basophils # 0.1 0.0 - 0.2 01/27/2018 [facility] Lymphocytes 15.2 20.0 - 40.0 01/27/2018 [facility] HEMATOLOGY Segs 57.6 45.0 - 75.0 01/27/2018 [facility] Segs-Bands # 6.3 1.5 - 8.1 01/27/2018 [facility] Basophils 1.3 0.0 - 1.0 01/27/2018 [facility] HEMATOLOGY Lymphocytes # 1.7 1.0 - 5.5 01/27/2018 [facility] CHEM PANEL eGFR 27 01/25/2018 Result [...] should be multiplied by the estimated BMI. [facility] CHEM PANEL Chloride Lvl 100 95 - 109 01/25/2018 [facility] CHEM PANEL CO2 30 24 - 32 01/25/2018 [facility] CHEM PANEL Calcium Lvl 10.4 8.5 - 10.5 01/25/2018 [facility] CHEM PANEL BUN 5 7 - 22 01/25/2018 [facility] CHEM PANEL Creatinine Lvl 2.44 0.50 - 1.40 01/25/2018 [facility] CHEM PANEL Glucose Lvl 87 70 - 99 01/25/2018 [facility] CHEM PANEL Sodium Lvl 135 135 - 145 01/25/2018 [facility] CHEM PANEL Potassium Lvl 3.3 3.5 - 5.1 01/25/2018 [facility] CHEM PANEL AGAP 8.3 10.0 - 20.0 01/25/2018 [facility] HEMATOLOGY Segs 61.1 45.0 - 75.0 01/25/2018 [facility] HEMATOLOGY Lymphocytes 14.9 20.0 - 40.0 01/25/2018 [facility] HEMATOLOGY Eosinophils # 1.3 0.0 - 0.5 01/25/2018 [facility] HEMATOLOGY Basophils # 0.1 0.0 - 0.2 01/25/2018 [facility] HEMATOLOGY Monocytes 11.0 2.0 - 12.0 01/25/2018 [facility] HEMATOLOGY Basophils 1.1 0.0 - 1.0 01/25/2018 [facility] HEMATOLOGY Eosinophils 11.9 0.0 - 4.0 01/25/2018 [facility] Segs-Bands # 6.9 1.5 - 8.1 01/25/2018 [facility] Monocytes # 1.2 0.0 - 0.8 01/25/2018 [facility] Lymphocytes # 1.7 1.0 - 5.5 01/25/2018 [facility] RBC Morph Normal (01/25/18 6:52 AM) 01/25/2018 [facility] Plt Morph Normal (01/25/18 6:52 AM) 01/25/2018 [facility] MPV 9.6 7.4 - 10.4 01/25/2018 [facility] Platelet 89 133 - 450 01/25/2018 [facility] Hgb 9.1 14.0 - 18.0 01/25/2018 [facility] RBC 3.23 4.70 - 6.10 01/25/2018 [facility] WBC 11.2 3.7 - 10.4 01/25/2018 [facility] MCH 28.1 27.0 - 31.0 01/25/2018 [facility] RDW 15.9 11.5 - 14.5 01/25/2018 [facility] MCHC 32.8 32.0 - 36.0 01/25/2018 [facility] MCV 85.7 80.0 - 94.0 01/25/2018 [facility] Hct 27.7 42.0 - 54.0 01/25/2018 [facility] CHEM PANEL Phosphorus 1.3 2.5 - 4.5 01/24/2018 [facility] CHEM PANEL Magnesium Lvl 1.9 1.8 - 2.4 01/24/2018 [facility] CHEM PANEL eGFR 56 01/24/2018 Result [...] should be multiplied by the estimated BMI. [facility] CHEM PANEL Chloride Lvl 104 95 - 109 01/24/2018 [facility] CHEM PANEL CO2 30 24 - 32 01/24/2018 [facility] CHEM PANEL BUN 2 7 - 22 01/24/2018 [facility] CHEM PANEL Sodium Lvl 142 135 - 145 01/24/2018 [facility] CHEM PANEL Creatinine Lvl 1.35 0.50 - 1.40 01/24/2018 [facility] CHEM PANEL Potassium Lvl 3.0 3.5 - 5.1 01/24/2018 Result Comment: Critical Result(s) called to georgina johnson 01/24/2018 06:30 byjw. Read back OK. [facility] CHEM PANEL Glucose Lvl 87 70 - 99 01/24/2018 [facility] CHEM PANEL AGAP 11.0 10.0 - 20.0 01/24/2018 [facility] CHEM PANEL Calcium Lvl 9.4 8.5 - 10.5 01/24/2018 [facility] CHEM PANEL Albumin Lvl 2.2 3.5 - 5.0 01/23/2018 [facility] CHEM PANEL Phosphorus 1.6 2.5 - 4.5 01/23/2018 [facility] CHEM PANEL Magnesium Lvl 1.7 1.8 - 2.4 01/22/2018 [facility] CHEM PANEL Alk Phos 108 39 - 136 01/22/2018 [facility] CHEM PANEL Bili Total 0.4 0.2 - 1.3 01/22/2018 [facility] CHEM PANEL A/G Ratio 0.6 0.7 - 1.6 01/22/2018 [facility] CHEM PANEL ALT 11 0 - 65 01/22/2018 [facility] CHEM PANEL AST 17 0 - 37 01/22/2018 [facility] CHEM PANEL Globulin 3.6 2.7 - 4.2 01/22/2018 [facility] CHEM PANEL B/C Ratio 4 6 - 25 01/22/2018 [facility] CHEM PANEL Total Protein 5.9 6.4 - 8.4 01/22/2018 [facility] CHEM PANEL Albumin Lvl 2.3 3.5 - 5.0 01/22/2018 [facility] CHEM PANEL Lipase Lvl 39 73 - 393 01/22/2018 [facility] PARATHYROID PROFILE PTH Intact 9.0 18.4 - 80.1 01/22/2018 [facility] TOXICOLOGY Amikacin Lvl 5.9 01/22/2018 [facility] HEMATOLOGY Bands 14.0 0.0 - 11.0 01/21/2018 [facility] HEMATOLOGY Plt Morph Normal (01/21/18 1:32 PM) 01/21/2018 [facility] HEMATOLOGY RBC Morph Normal (01/21/18 1:32 PM) 01/21/2018 [facility] ANEMIA STUDY Folate Lvl 3.3 >=3.0 ng/mL 01/21/2018 [facility] ANEMIA STUDY Vitamin B12 Lvl >2000 254 - 1320 01/21/2018 [facility] ANEMIA STUDY Iron 41 45 - 160 01/21/2018 [facility] ANEMIA STUDY TIBC 166 228 - 428 01/21/2018 [facility] ANEMIA STUDY % Satur Fe 25 12 - 57 01/21/2018 [facility] ANEMIA STUDY UIBC 125 110 - 370 01/21/2018 [facility] ANEMIA STUDY Ferritin Lvl 589 22 - 275 01/21/2018 [facility] CHEM PANEL B/C Ratio 3 6 - 25 01/21/2018 [facility] CHEM PANEL Total Protein 6.1 6.4 - 8.4 01/21/2018 [facility] CHEM PANEL Bili Total 0.9 0.2 - 1.3 01/21/2018 [facility] CHEM PANEL Alk Phos 93 39 - 136 01/21/2018 [facility] CHEM PANEL Globulin 3.7 2.7 - 4.2 01/21/2018 [facility] CHEM PANEL Albumin Lvl 2.4 3.5 - 5.0 01/21/2018 [facility] CHEM PANEL AST 17 0 - 37 01/21/2018 [facility] CHEM PANEL ALT 8 0 - 65 01/21/2018 [facility] CHEM PANEL A/G Ratio 0.6 0.7 - 1.6 01/21/2018 [facility] CHEM PANEL Lipase Lvl 31 73 - 393 01/21/2018 [facility] HEMATOLOGY Fibrinogen Lvl 404 230 - 510 01/21/2018 [facility] HEMATOLOGY Retic Auto 0.7 0.5 - 1.5 01/21/2018 [facility] HEMATOLOGY Heparin Ab(GARRISON) Negative 1 (01/20/18 3:50 PM) Negative 01/20/2018 Result Comment: This assay detects heparin antibodies of IgG isotype. Antibodies of other isotypes have been reported to cause heparin-induced thrombocytopenia. Therefore, if there is a strong clinical suspicion of HIT, additional study with a serotonin release assay is recommented. [facility] HEMATOLOGY Pat Od Value 0.209 01/20/2018 [facility] HEMATOLOGY Pos CO Value 0.400 01/20/2018 [facility] IMMUNOLOGY Haptoglobin 132 16 - 200 01/20/2018 [facility] BLOOD BANK RESULTS RBC product Product available 1 (01/20/18 6:59 AM) 01/20/2018 Result Comment: 01/20/2018 07:52 [id number]
Called to Jose E Daniels at 01/20/2018 07:46 by Ross Meredith. [facility] ANEMIA STUDY TRANSFERRIN 72 212 - 360 01/20/2018 [facility] CHEM PANEL Lipase Lvl 41 73 - 393 01/20/2018 [facility] CHEM PANEL Bili Total 0.3 0.2 - 1.3 01/20/2018 [facility] CHEM PANEL Bili Direct 0.1 0.0 - 0.3 01/20/2018 [facility] CHEM PANEL Globulin 3.2 2.7 - 4.2 01/20/2018 [facility] CHEM PANEL A/G Ratio 0.8 0.7 - 1.6 01/20/2018 [facility] CHEM PANEL Bili Indirect 0.2 0.0 - 1.0 01/20/2018 [facility] CHEM PANEL Total Protein 5.7 6.4 - 8.4 01/20/2018 [facility] CHEM PANEL ALT 9 0 - 65 01/20/2018 [facility] CHEM PANEL AST 19 0 - 37 01/20/2018 [facility] CHEM PANEL Alk Phos 69 39 - 136 01/20/2018 [facility] CARDIAC ENZYMES BNP 815 <=100 pg/mL 01/19/2018 [facility] CHEM PANEL Amylase Lvl 14 25 - 115 01/19/2018 [facility] CHEM PANEL Uric Acid 3.0 3.8 - 8.0 01/19/2018 [facility] CHEM PANEL Vitamin D, 25-OH, Total 9.4 30.0 - 100.0 01/19/2018 [facility] CHEM PANEL VITAMIN B1 (THIAMINE) WHOLE BLOOD 79.2 66.5 - 200.0 01/19/2018 Result Comment:
This test was developed and its performance characteristics
determined by [employer]. It has not been cleared or
approved by the Food and Drug Administration.
Performed At: [facility]
[address] [place] [address] [id number]
Jennifer Vinson MD Ph:[phone] [facility] HEMATOLOGY Sed Rate 81 0 - 15 01/19/2018 [facility] IMMUNOLOGY Homocyst Tot 9.2 3.7 - 13.9 01/19/2018 [facility] IMMUNOLOGY Hep Bs Ag Negative *NA* (01/19/18 1:38 PM) Negative 01/19/2018 [facility] LIPIDS HDL 18 >=61 mg/dL 01/19/2018 [facility] LIPIDS Chol 84 <=199 mg/dL 01/19/2018 [facility] LIPIDS Trig 108 <=149 mg/dL 01/19/2018 [facility] LIPIDS CHD Risk 4.67 4.00 - 7.30 01/19/2018 [facility] LIPIDS LDL (Calculated) 44 <=99 mg/dL 01/19/2018 [facility] LIPIDS VLDL 22 01/19/2018 [facility] SPECIAL CHEMISTRY Hgb A1C 5.9 <=5.6 % 01/19/2018 [facility] BLOOD BANK RESULTS Antibody Scrn Negative (01/17/18 3:39 PM) 01/17/2018 [facility] BLOOD BANK RESULTS ABO/Rh O POS 01/17/2018 [facility] BLOOD BANK RESULTS RBC product Product available (01/17/18 11:38 AM) 01/17/2018 [facility] ANEMIA STUDY Ferritin Lvl 520 22 - 275 01/15/2018 [facility] CARDIAC ENZYMES Total CK 57 12 - 191 01/15/2018 [facility] CARDIAC ENZYMES Troponin-I <0.02 0.00 - 0.40 01/15/2018 [facility] CARDIAC ENZYMES CK MB Index 2.5 0.0 - 2.5 01/15/2018 [facility] CARDIAC ENZYMES CK MB 1.9 0.5 - 3.6 01/15/2018 [facility] CARDIAC ENZYMES Total CK 77 12 - 191 01/15/2018 [facility] CARDIAC ENZYMES Troponin-I 0.02 0.00 - 0.40 01/15/2018 [facility] BLOOD BANK RESULTS Antibody Scrn Negative (01/08/18 5:14 PM) 01/08/2018 [facility] BLOOD BANK RESULTS ABO/Rh O POS 01/08/2018 [facility] HEMATOLOGY INR 1.07 0.85 - 1.17 01/08/2018 [facility] HEMATOLOGY PT 13.9 12.0 - 14.7 01/08/2018 [facility] HEMATOLOGY Plt Morph Normal (01/08/18 4:02 AM) 01/08/2018 [facility] HEMATOLOGY RBC Morph Normal (01/08/18 4:02 AM) 01/08/2018 [facility] Culture: Anaerobic No Anaerobes Isolated 01/04/2018 [facility] Gram Stain Report Rare WBC's No Organisms Seen 01/04/2018 [facility] Culture: Wound/Abscess w/Gram Stain Few Enterobacter cloacae Few Acinetobacter baumannii Refer To Culture # [id number] collected 01-03-18 For Identification And Susceptibility Results 01/04/2018 [facility] Culture: Anaerobic No Anaerobes Isolated 01/04/2018 [facility] Gram Stain Report No Wbc'S Or Organisms Seen 01/04/2018 [facility] Culture: Wound/Abscess w/Gram Stain Many Enterobacter cloacae Many Acinetobacter baumannii Refer To Culture # [id number] collected 01-03-18 For Identification And Susceptibility Results 01/04/2018 [facility] SPECIAL CHEMISTRY Hgb A1C 6.9 <=5.6 % 01/04/2018 [facility] AMPICILLIN:SUSC:PT:ISOLATE:ORDQN:FERNANDO Gram Stain Report No Wbc'S Or Organisms Seen 01/04/2018 [facility] AMPICILLIN:SUSC:PT:ISOLATE:ORDQN:FERNANDO Culture: Wound/Abscess w/Gram Stain Rare Enterobacter cloacae Rare Acinetobacter baumannii Refer To Culture # [id number] collected: 01/03/2018 For Susceptibility Results . Rare Vancomycin Resistant Enterococcus Few Staphylococcus Species, Not S. aureus 01/04/2018 [facility] AMPICILLIN:SUSC:PT:ISOLATE:ORDQN:FERNANDO Vancomycin Resistant Enterococcus Vancomycin Resistant Enterococcus 01/04/2018 [facility] LEVOFLOXACIN:SUSC:PT:ISOLATE:ORDQN:FERNANDO Gram Stain Report No Wbc'S Or Organisms Seen 01/04/2018 [facility] LEVOFLOXACIN:SUSC:PT:ISOLATE:ORDQN:FERNANDO Culture: Wound/Abscess w/Gram Stain Many Acinetobacter baumannii , Multi-drug Resistant Organism Moderate Enterobacter cloacae , Multi-drug Resistant Organism 01/04/2018 [facility] LEVOFLOXACIN:SUSC:PT:ISOLATE:ORDQN:FERNANDO Enterobacter cloacae Enterobacter cloacae 01/04/2018 [facility] LEVOFLOXACIN:SUSC:PT:ISOLATE:ORDQN:FERNANDO Acinetobacter baumannii Acinetobacter baumannii 01/04/2018 [facility] IMMUNOLOGY Hep Bs Ag Negative *NA* (01/03/18 9:10 AM) Negative 01/03/2018 [facility] CHEM PANEL B/C Ratio 8 6 - 25 01/03/2018 [facility] CARDIAC ENZYMES CK MB Index 8.4 0.0 - 2.5 01/02/2018 [facility] CARDIAC ENZYMES CK MB Index 9.3 0.0 - 2.5 01/02/2018 [facility] CARDIAC ENZYMES Troponin-I <0.02 0.00 - 0.40 01/02/2018 [facility] CARDIAC ENZYMES CK MB 5.0 0.5 - 3.6 01/02/2018 [facility] CARDIAC ENZYMES Total CK 54 12 - 191 01/02/2018 [facility] CARDIAC ENZYMES BNP 1078 <=100 pg/mL 01/02/2018 [facility] CARDIAC ENZYMES CK MB 4.9 0.5 - 3.6 01/02/2018 [facility] CARDIAC ENZYMES Troponin-I <0.02 0.00 - 0.40 01/02/2018 [facility] CARDIAC ENZYMES Total CK 58 12 - 191 01/02/2018 [facility] CHEM PANEL Lactic Acid Lvl 1.2 0.5 - 2.2 01/02/2018 [facility] HEMATOLOGY PTT 33.7 22.9 - 35.8 01/02/2018 [facility] HEMATOLOGY INR 1.11 0.85 - 1.17 01/02/2018 [facility] HEMATOLOGY PT 14.3 12.0 - 14.7 01/02/2018 [facility] ELECTROLYTES AGAP 13.1 10.0 - 20.0 12/21/2017 [facility] ELECTROLYTES Creatinine Lvl 4.75 0.50 - 1.40 12/21/2017 [facility] ELECTROLYTES BUN 53 7 - 22 12/21/2017 [facility] ELECTROLYTES Glucose Lvl 156 70 - 99 12/21/2017 [facility] ELECTROLYTES Sodium Lvl 133 135 - 145 12/21/2017 [facility] ELECTROLYTES Potassium Lvl 4.1 3.5 - 5.1 12/21/2017 [facility] ELECTROLYTES eGFR 12 12/21/2017 Result Comment: [...] should be multiplied by the estimated BMI. [facility] ELECTROLYTES Calcium Lvl 8.1 8.5 - 10.5 12/21/2017 [facility] ELECTROLYTES CO2 27 24 - 32 12/21/2017 [facility] ELECTROLYTES Chloride Lvl 97 95 - 109 12/21/2017 [facility] HEMATOLOGY Basophils # 0.1 0.0 - 0.2 12/21/2017 [facility] HEMATOLOGY Monocytes # 2.5 0.0 - 0.8 12/21/2017 [facility] HEMATOLOGY Segs-Bands # 9.2 1.5 - 8.1 12/21/2017 [facility] HEMATOLOGY Basophils 0.8 0.0 - 1.0 12/21/2017 [facility] HEMATOLOGY Segs 66.2 45.0 - 75.0 12/21/2017 [facility] Lymphocytes 11.9 20.0 - 40.0 12/21/2017 [facility] HEMATOLOGY Eosinophils 2.8 0.0 - 4.0 12/21/2017 [facility] Monocytes 18.3 2.0 - 12.0 12/21/2017 [facility] Eosinophils # 0.4 0.0 - 0.5 12/21/2017 [facility] Lymphocytes # 1.7 1.0 - 5.5 12/21/2017 [facility] MCHC 32.7 32.0 - 36.0 12/21/2017 [facility] RDW 16.1 11.5 - 14.5 12/21/2017 [facility] MCV 87.1 80.0 - 94.0 12/21/2017 [facility] Hct 31.0 42.0 - 54.0 12/21/2017 [facility] Platelet 215 133 - 450 12/21/2017 [facility] MCH 28.5 27.0 - 31.0 12/21/2017 [facility] MPV 8.4 7.4 - 10.4 12/21/2017 [facility] WBC 13.9 3.7 - 10.4 12/21/2017 [facility] Hgb 10.1 14.0 - 18.0 12/21/2017 [facility] RBC 3.55 4.70 - 6.10 12/21/2017 [facility] RDW 15.2 11.5 - 14.5 12/20/2017 [facility] Platelet 218 133 - 450 12/20/2017 [facility] MPV 8.3 7.4 - 10.4 12/20/2017 [facility] Hgb 10.2 14.0 - 18.0 12/20/2017 [facility] Hct 30.9 42.0 - 54.0 12/20/2017 [facility] MCH 28.5 27.0 - 31.0 12/20/2017 [facility] MCHC 32.9 32.0 - 36.0 12/20/2017 [facility] MCV 86.7 80.0 - 94.0 12/20/2017 [facility] WBC 17.7 3.7 - 10.4 12/20/2017 [facility] RBC 3.56 4.70 - 6.10 12/20/2017 [facility] HEMATOLOGY Eosinophils # 0.3 0.0 - 0.5 12/20/2017 [facility] HEMATOLOGY Basophils # 0.1 0.0 - 0.2 12/20/2017 [facility] HEMATOLOGY Monocytes 17.5 2.0 - 12.0 12/20/2017 [facility] HEMATOLOGY Segs 71.8 45.0 - 75.0 12/20/2017 [facility] Lymphocytes 8.1 20.0 - 40.0 12/20/2017 [facility] Eosinophils 1.9 0.0 - 4.0 12/20/2017 [facility] HEMATOLOGY Basophils 0.7 0.0 - 1.0 12/20/2017 [facility] Monocytes # 3.1 0.0 - 0.8 12/20/2017 [facility] Segs-Bands # 12.7 1.5 - 8.1 12/20/2017 [facility] Lymphocytes # 1.4 1.0 - 5.5 12/20/2017 [facility] ELECTROLYTES AGAP 13.2 10.0 - 20.0 12/19/2017 [facility] ELECTROLYTES eGFR 17 12/19/2017 Result Comment: [...] should be multiplied by the estimated BMI. [facility] ELECTROLYTES Calcium Lvl 7.7 8.5 - 10.5 12/19/2017 [facility] ELECTROLYTES CO2 29 24 - 32 12/19/2017 [facility] ELECTROLYTES BUN 23 7 - 22 12/19/2017 [facility] ELECTROLYTES Glucose Lvl 117 70 - 99 12/19/2017 [facility] ELECTROLYTES Creatinine Lvl 3.69 0.50 - 1.40 12/19/2017 [facility] ELECTROLYTES Chloride Lvl 98 95 - 109 12/19/2017 [facility] ELECTROLYTES Sodium Lvl 137 135 - 145 12/19/2017 [facility] ELECTROLYTES Potassium Lvl 3.2 3.5 - 5.1 12/19/2017 [facility] HEMATOLOGY Eosinophils 2.0 0.0 - 4.0 12/19/2017 [facility] HEMATOLOGY Segs-Bands # 12.8 1.5 - 8.1 12/19/2017 [facility] HEMATOLOGY Basophils 0.7 0.0 - 1.0 12/19/2017 [facility] HEMATOLOGY Eosinophils # 0.3 0.0 - 0.5 12/19/2017 [facility] Monocytes # 1.5 0.0 - 0.8 12/19/2017 [facility] Lymphocytes # 0.7 1.0 - 5.5 12/19/2017 [facility] Basophils # 0.1 0.0 - 0.2 12/19/2017 [facility] HEMATOLOGY Segs 82.8 45.0 - 75.0 12/19/2017 [facility] Lymphocytes 4.8 20.0 - 40.0 12/19/2017 [facility] HEMATOLOGY Monocytes 9.7 2.0 - 12.0 12/19/2017 [facility] Platelet 215 133 - 450 12/19/2017 [facility] RDW 15.5 11.5 - 14.5 12/19/2017 [facility] MPV 8.1 7.4 - 10.4 12/19/2017 [facility] RBC 3.17 4.70 - 6.10 12/19/2017 [facility] HEMATOLOGY WBC 15.5 3.7 - 10.4 12/19/2017 [facility] HEMATOLOGY MCHC 33.5 32.0 - 36.0 12/19/2017 [facility] HEMATOLOGY MCH 29.1 27.0 - 31.0 12/19/2017 [facility] HEMATOLOGY Hgb 9.2 14.0 - 18.0 12/19/2017 [facility] HEMATOLOGY Hct 27.5 42.0 - 54.0 12/19/2017 [facility] HEMATOLOGY MCV 86.8 80.0 - 94.0 12/19/2017 [facility] ELECTROLYTES Potassium Lvl 3.7 3.5 - 5.1 12/18/2017 [facility] TOXICOLOGY Vanco Lvl 16.3 12/18/2017 [facility] CHEM PANEL Magnesium Lvl 2.1 1.8 - 2.4 12/17/2017 [facility] CHEM PANEL eGFR 17 12/17/2017 Result [...] should be multiplied by the estimated BMI. [facility] CHEM PANEL Glucose Lvl 189 70 - 99 12/17/2017 [facility] CHEM PANEL Creatinine Lvl 3.53 0.50 - 1.40 12/17/2017 [facility] CHEM PANEL Sodium Lvl 134 135 - 145 12/17/2017 [facility] CHEM PANEL BUN 19 7 - 22 12/17/2017 [facility] CHEM PANEL CO2 28 24 - 32 12/17/2017 [facility] CHEM PANEL Chloride Lvl 98 95 - 109 12/17/2017 [facility] CHEM PANEL Calcium Lvl 7.5 8.5 - 10.5 12/17/2017 [facility] CHEM PANEL AGAP 12.1 10.0 - 20.0 12/17/2017 [facility] CHEM PANEL Magnesium Lvl 2.0 1.8 - 2.4 12/15/2017 [facility] CHEM PANEL Bili Total 0.7 0.2 - 1.3 12/15/2017 [facility] CHEM PANEL Alk Phos 105 39 - 136 12/15/2017 [facility] CHEM PANEL AST 7 0 - 37 12/15/2017 [facility] CHEM PANEL ALT 10 0 - 65 12/15/2017 [facility] CHEM PANEL Globulin 4.6 2.7 - 4.2 12/15/2017 [facility] CHEM PANEL A/G Ratio 0.5 0.7 - 1.6 12/15/2017 [facility] CHEM PANEL B/C Ratio 7 6 - 25 12/15/2017 [facility] CHEM PANEL Albumin Lvl 2.2 3.5 - 5.0 12/15/2017 [facility] CHEM PANEL Total Protein 6.8 6.4 - 8.4 12/15/2017 [facility] TOXICOLOGY Vanco Lvl 12.6 12/15/2017 [facility] ENDOCRINOLOGY S Preg Negative *NA* (12/14/17 4:55 PM) Negative 12/14/2017 [facility] HEMATOLOGY INR 1.15 0.85 - 1.17 12/14/2017 [facility] HEMATOLOGY PT 14.7 12.0 - 14.7 12/14/2017 [facility] HEMATOLOGY PTT 32.9 22.9 - 35.8 12/14/2017 [facility] BLOOD BANK RESULTS Antibody Scrn Negative (12/14/17 9:05 AM) 12/14/2017 [facility] BLOOD BANK RESULTS ABO/Rh O POS 12/14/2017 [facility] BLOOD BANK RESULTS RBC product Product available 1 (12/14/17 7:12 AM) 12/14/2017 Result Comment: 12/14/2017 11:11 [id number]
Spoke to Ross Murphy. 12/14/2017 11:11 MORSE [facility] CHEM PANEL Albumin Lvl 2.0 3.5 - 5.0 12/14/2017 [facility] CHEM PANEL B/C Ratio 9 6 - 25 12/14/2017 [facility] CHEM PANEL Total Protein 6.2 6.4 - 8.4 12/14/2017 [facility] CHEM PANEL Bili Total 0.4 0.2 - 1.3 12/14/2017 [facility] CHEM PANEL ALT 11 0 - 65 12/14/2017 [facility] CHEM PANEL AST 6 0 - 37 12/14/2017 [facility] CHEM PANEL A/G Ratio 0.5 0.7 - 1.6 12/14/2017 [facility] CHEM PANEL Alk Phos 95 39 - 136 12/14/2017 [facility] CHEM PANEL Globulin 4.2 2.7 - 4.2 12/14/2017 [facility] CHEM PANEL Phosphorus 3.8 2.5 - 4.5 12/13/2017 [facility] CHEM PANEL Magnesium Lvl 1.6 1.8 - 2.4 12/13/2017 [facility] CHEM PANEL ALT 13 0 - 65 12/13/2017 [facility] CHEM PANEL Alk Phos 98 39 - 136 12/13/2017 [facility] CHEM PANEL Bili Total 0.5 0.2 - 1.3 12/13/2017 [facility] CHEM PANEL AST 10 0 - 37 12/13/2017 [facility] CHEM PANEL Total Protein 6.5 6.4 - 8.4 12/13/2017 [facility] CHEM PANEL B/C Ratio 10 6 - 25 12/13/2017 [facility] CHEM PANEL Globulin 4.2 2.7 - 4.2 12/13/2017 [facility] CHEM PANEL Albumin Lvl 2.3 3.5 - 5.0 12/13/2017 [facility] CHEM PANEL A/G Ratio 0.5 0.7 - 1.6 12/13/2017 [facility] IMMUNOLOGY Hep Bs Ag Negative *NA* (12/12/17 11:30 PM) Negative 12/13/2017 [facility] CHEM PANEL Lactic Acid Lvl 1.2 0.5 - 2.2 12/12/2017 [facility] CARDIAC ENZYMES Troponin-I <0.02 0.00 - 0.40 12/12/2017 [facility] CARDIAC ENZYMES Total CK 81 12 - 191 12/12/2017 [facility] CARDIAC ENZYMES BNP 1591 <=100 pg/mL 12/12/2017 [facility] CHEM PANEL Phosphorus 6.6 2.5 - 4.5 12/12/2017 [facility] CHEM PANEL Bili Indirect 0.3 0.0 - 1.0 12/12/2017 [facility] CHEM PANEL Bili Direct 0.2 0.0 - 0.3 12/12/2017 [facility] HEMATOLOGY INR 1.17 0.85 - 1.17 12/12/2017 [facility] HEMATOLOGY PT 15.0 12.0 - 14.7 12/12/2017 [facility] HEMATOLOGY PTT 33.7 22.9 - 35.8 12/12/2017 [facility] Blood sugar Blood sugar 170 11/30/2017 [facility]: [facility] [place] Blood sugar Blood sugar 170 11/30/2017 [facility]: [facility] [place] Blood sugar Blood sugar 99 11/30/2017 [facility]: [facility] [place] Blood sugar Blood sugar 99 11/30/2017 [facility]: [facility] [place] Blood sugar Blood sugar 135 11/30/2017 [facility]: [facility] [place] Blood sugar Blood sugar 135 11/30/2017 [facility]: [facility] [place] Blood sugar Blood sugar 243 11/29/2017 [facility]: [facility] [place] Blood sugar Blood sugar 243 11/29/2017 [facility]: [facility] [place] Blood sugar Blood sugar 156 11/29/2017 [facility]: [facility] [place] Blood sugar Blood sugar 156 11/29/2017 [facility]: [facility] [place] Blood sugar Blood sugar 180 11/29/2017 [facility]: [facility] [place] Blood sugar Blood sugar 180 11/29/2017 [facility]: [facility] [place] Blood sugar Blood sugar 141 11/28/2017 [facility]: [facility] [place] Blood sugar Blood sugar 141 11/28/2017 [facility]: [facility] [place] Blood sugar Blood sugar 79 11/28/2017 [facility]: [facility] [place] Blood sugar Blood sugar 79 11/28/2017 [facility]: [facility] [place] Blood sugar Blood sugar 190 11/27/2017 [facility]: [facility] [place] Blood sugar Blood sugar 190 11/27/2017 [facility]: [facility] [place] Blood sugar Blood sugar 108 11/27/2017 [facility]: [facility] [place] Blood sugar Blood sugar 108 11/27/2017 [facility]: [facility] [place] Blood sugar Blood sugar 139 11/27/2017 [facility]: [facility] [place] Blood sugar Blood sugar 139 11/27/2017 [facility]: [facility] [place] Blood sugar Blood sugar 134 11/26/2017 [facility]: [facility] [place] Blood sugar Blood sugar 134 11/26/2017 [facility]: [facility] [place] Blood sugar Blood sugar 134 11/26/2017 [facility]: [facility] [place] Blood sugar Blood sugar 134 11/26/2017 [facility]: [facility] [place] Blood sugar Blood sugar 115 11/26/2017 [facility]: [facility] [place] Blood sugar Blood sugar 115 11/26/2017 [facility]: [facility] [place] Blood sugar Blood sugar 167 11/26/2017 [facility]: [facility] [place] Blood sugar Blood sugar 167 11/26/2017 [facility]: [facility] [place] Blood sugar Blood sugar 154 11/25/2017 [facility]: [facility] [place] Blood sugar Blood sugar 154 11/25/2017 [facility]: [facility] [place] Blood sugar Blood sugar 107 11/25/2017 [facility]: [facility] [place] Blood sugar Blood sugar 107 11/25/2017 [facility]: [facility] [place] Blood sugar Blood sugar 132 11/25/2017 [facility]: [facility] [place] Blood sugar Blood sugar 132 11/25/2017 [facility]: [facility] [place] Blood sugar Blood sugar 170 11/25/2017 [facility]: [facility] [place] Blood sugar Blood sugar 150 11/25/2017 [facility]: [facility] [place] Blood sugar Blood sugar 170 11/25/2017 [facility]: [facility] [place] Blood sugar Blood sugar 150 11/25/2017 [facility]: [facility] [place] Blood sugar Blood sugar 123 11/24/2017 [facility]: [facility] [place] Blood sugar Blood sugar 123 11/24/2017 [facility]: [facility] [place] Blood sugar Blood sugar 220 10/11/2017 [facility]: [facility] [place] Blood sugar Blood sugar 103 10/11/2017 [facility]: [facility] [place] Blood sugar Blood sugar 94 10/11/2017 [facility]: [facility] [place] Blood sugar Blood sugar 259 10/11/2017 [facility]: [facility] [place] Blood sugar Blood sugar 259 10/11/2017 [facility]: [facility] [place] Blood sugar Blood sugar 174 10/10/2017 [facility]: [facility] [place] Blood sugar Blood sugar 193 10/10/2017 [facility]: [facility] [facility] [place] Blood sugar Blood sugar 209 10/10/2017 [facility]: [facility] [facility] [place] Blood sugar Blood sugar 209 10/10/2017 [facility]: [facility] [facility] [place] Blood sugar Blood sugar 218 10/09/2017 [facility]: [facility] [facility] [place] Blood sugar Blood sugar 197 10/09/2017 [facility]: [facility] [place] Blood sugar Blood sugar 143 10/09/2017 [facility]: [facility] [place] Blood sugar Blood sugar 143 10/09/2017 [facility]: [facility] [place] Blood sugar Blood sugar 109 10/09/2017 [facility]: [facility] [place] Blood sugar Blood sugar 109 10/09/2017 [facility]: [facility] [facility] [place] Blood sugar Blood sugar 166 10/08/2017 [facility]: [facility] [facility] [place] Blood sugar Blood sugar 153 10/08/2017 [facility]: [facility] [facility] [place] Blood sugar Blood sugar 122 10/08/2017 [facility]: [facility] [place] Blood sugar Blood sugar 122 10/08/2017 [facility]: [facility] [facility] [place] Blood sugar Blood sugar 117 10/07/2017 [facility]: [facility] [place] Blood sugar Blood sugar 143 10/07/2017 [facility]: [facility] [place] Blood sugar Blood sugar 211 10/07/2017 [facility]: [facility] [place] Blood sugar Blood sugar 211 10/07/2017 [facility]: [facility] [place] Blood sugar Blood sugar 294 10/06/2017 [facility]: [facility] [place] Blood sugar Blood sugar 194 10/06/2017 [facility]: [facility] [place] Blood sugar Blood sugar 110 10/06/2017 [facility]: [facility] [place] Blood sugar Blood sugar 110 10/06/2017 [facility]: [facility] [place] Blood sugar Blood sugar 150 10/06/2017 [facility]: [facility] [place] Blood sugar Blood sugar 99 10/06/2017 [facility]: [facility] [place] Blood sugar Blood sugar 99 10/06/2017 [facility]: [facility] [place] Blood sugar Blood sugar 167 10/05/2017 [facility]: [facility] [place] Blood sugar Blood sugar 167 10/05/2017 [facility]: [facility] [place] Blood sugar Blood sugar 189 10/05/2017 [facility]: [facility] [place] Blood sugar Blood sugar 189 10/05/2017 [facility]: [facility] [place] Blood sugar Blood sugar 252 10/04/2017 [facility]: [facility] [place] Blood sugar Blood sugar 141 10/04/2017 [facility]: [facility] [place] Blood sugar Blood sugar 219 10/04/2017 [facility]: [facility] [place] Blood sugar Blood sugar 219 10/04/2017 [facility]: [facility] [place] Blood sugar Blood sugar 161 10/04/2017 [facility]: [facility] [place] Blood sugar Blood sugar 167 10/04/2017 [facility]: [facility] [place] Blood sugar Blood sugar 73 10/03/2017 [facility]: [facility] [place] Blood sugar Blood sugar 209 10/03/2017 [facility]: [facility] [place] Blood sugar Blood sugar 209 10/03/2017 [facility]: [facility] [place] Blood sugar Blood sugar 272 10/03/2017 [facility]: [facility] [place] Blood sugar Blood sugar 272 10/03/2017 [facility]: [facility] [place] Blood sugar Blood sugar 243 10/02/2017 [facility]: [facility] [place] Blood sugar Blood sugar 213 10/02/2017 [facility]: [facility] [place] Blood sugar Blood sugar 241 10/02/2017 [facility]: [facility] [place] Blood sugar Blood sugar 198 10/02/2017 [facility]: [facility] [place] Blood sugar Blood sugar 175 10/01/2017 [facility]: [facility] [place] Blood sugar Blood sugar 122 10/01/2017 [facility]: [facility] [place] Blood sugar Blood sugar 99 10/01/2017 [facility]: [facility] [place] Blood sugar Blood sugar 218 10/01/2017 [facility]: [facility] [place] Blood sugar Blood sugar 94 09/30/2017 [facility] Blood sugar Blood sugar 145 09/30/2017 [facility]: [facility] Blood sugar Blood sugar 222 09/30/2017 [facility]: [facility] Blood sugar Blood sugar 173 09/29/2017 [facility]: [facility] Blood sugar Blood sugar 143 09/29/2017 [facility]: [facility] Blood sugar Blood sugar 174 09/29/2017 [facility]: [facility] Blood sugar Blood sugar 111 09/28/2017 [facility]: [facility] Blood sugar Blood sugar 215 09/28/2017 [facility]: [facility] GLUCOSE POC Glucose POC 118 74 - 106 07/12/2017 [facility] GLUCOSE POC Lab Interpretation Abnormal 07/12/2017 [facility] BASIC METABOLIC PANEL CO2 27 21 - 32 07/12/2017 [facility] BASIC METABOLIC PANEL Chloride 103 98 - 107 07/12/2017 [facility] BASIC METABOLIC PANEL Potassium 4.1 3.5 - 5.1 07/12/2017 [facility] BASIC METABOLIC PANEL Sodium 139 136 - 145 07/12/2017 [facility] BASIC METABOLIC PANEL Glucose 131 70 - 99 07/12/2017 [facility] BASIC METABOLIC PANEL Urea Nitrogen 81 7 - 18 07/12/2017 [facility] BASIC METABOLIC PANEL Creatinine 3.91 0.6 - 1.3 07/12/2017 [facility] BASIC METABOLIC PANEL Anion Gap 9 07/12/2017 [facility] BASIC METABOLIC PANEL Calcium 8.0 8.5 - 10.2 07/12/2017 [facility] BASIC METABOLIC PANEL GFR, Estimated 16 mL/min/1.73 m2 07/12/2017 [facility] BASIC METABOLIC PANEL GFR, Estim, Afr-Am 19 mL/min/1.73 m2 07/12/2017 [facility] BASIC METABOLIC PANEL Lab Interpretation Abnormal 07/12/2017 [facility] CBC/DIFF WBC 9.9 4.5 - 12 07/11/2017 [facility] CBC/DIFF RBC 3.82 M/uL 4.60 - 6.20 07/11/2017 [facility] CBC/DIFF Hemoglobin 11.3 14 - 18 07/11/2017 [facility] CBC/DIFF Hematocrit 36.6 40 - 54 07/11/2017 [facility] CBC/DIFF MCV 96 82 - 92 07/11/2017 [facility] CBC/DIFF MCH 29.6 27 - 31 07/11/2017 [facility] CBC/DIFF MCHC 30.9 32 - 36 07/11/2017 [facility] CBC/DIFF RDW 47.1 35.1 - 43.9 07/11/2017 [facility] CBC/DIFF Platelet 179 150 - 400 07/11/2017 [facility] CBC/DIFF Mean Platelet Volume 11.2 9.4 - 12.4 07/11/2017 [facility] CBC/DIFF Percent NRBC 0.0 07/11/2017 [facility] CBC/DIFF Absolute NRBC 0.00 07/11/2017 [facility] CBC/DIFF Neutrophil 70.9 34 - 67.9 07/11/2017 [facility] CBC/DIFF Lymphocyte 11.8 21.8 - 50 07/11/2017 [facility] CBC/DIFF Monocyte 14.9 5.3 - 12 07/11/2017 [facility] CBC/DIFF Eosinophil 1.6 0.8 - 5 07/11/2017 [facility] CBC/DIFF Basophil 0.3 0.2 - 1.2 07/11/2017 [facility] CBC/DIFF Pct Immat Gran 0.5 0.0 - 0.5 07/11/2017 [facility] CBC/DIFF Neutrophil, Abs 7.03 1.78 - 5.36 07/11/2017 [facility] CBC/DIFF Lymphocyte, Abs 1.17 1.32 - 3.57 07/11/2017 [facility] CBC/DIFF Monocyte, Abs 1.48 0.3 - 0.82 07/11/2017 [facility] CBC/DIFF Eosinophil, Abs 0.16 0.04 - 0.54 07/11/2017 [facility] CBC/DIFF Basophil, Abs 0.03 0.01 - 0.08 07/11/2017 [facility] CBC/DIFF Absol Immat Gran 0.05 0 - 0.03 07/11/2017 [facility] CBC/DIFF Lab Interpretation Abnormal 07/11/2017 [facility] COMPREHENSIVE METABOLIC PANEL(DBIL NOT INCLUDED) Albumin 2.4 3.4 - 5 07/11/2017 [facility] COMPREHENSIVE METABOLIC PANEL(DBIL NOT INCLUDED) Calcium 7.8 8.5 - 10.2 07/11/2017 [facility] COMPREHENSIVE METABOLIC PANEL(DBIL NOT INCLUDED) CO2 30 21 - 32 07/11/2017 [facility] COMPREHENSIVE METABOLIC PANEL(DBIL NOT INCLUDED) Chloride 102 98 - 107 07/11/2017 [facility] COMPREHENSIVE METABOLIC PANEL(DBIL NOT INCLUDED) Creatinine 4.05 0.6 - 1.3 07/11/2017 [facility] COMPREHENSIVE METABOLIC PANEL(DBIL NOT INCLUDED) Glucose 108 70 - 99 07/11/2017 [facility] COMPREHENSIVE METABOLIC PANEL(DBIL NOT INCLUDED) Alk Phos 112 45 - 117 07/11/2017 [facility] COMPREHENSIVE METABOLIC PANEL(DBIL NOT INCLUDED) Potassium 4.8 3.5 - 5.1 07/11/2017 [facility] COMPREHENSIVE METABOLIC PANEL(DBIL NOT INCLUDED) Sodium 138 136 - 145 07/11/2017 [facility] COMPREHENSIVE METABOLIC PANEL(DBIL NOT INCLUDED) ALT 24 12 - 78 07/11/2017 [facility] COMPREHENSIVE METABOLIC PANEL(DBIL NOT INCLUDED) AST 19 15 - 37 07/11/2017 [facility] COMPREHENSIVE METABOLIC PANEL(DBIL NOT INCLUDED) Urea Nitrogen 66 7 - 18 07/11/2017 [facility] COMPREHENSIVE METABOLIC PANEL(DBIL NOT INCLUDED) T Bilirubin 0.4 0.2 - 1 07/11/2017 [facility] COMPREHENSIVE METABOLIC PANEL(DBIL NOT INCLUDED) T Protein 5.5 6.4 - 8.2 07/11/2017 [facility] COMPREHENSIVE METABOLIC PANEL(DBIL NOT INCLUDED) GFR, Estimated 15 mL/min/1.73 m2 07/11/2017 [facility] COMPREHENSIVE METABOLIC PANEL(DBIL NOT INCLUDED) GFR, Estim, Afr-Am 18 mL/min/1.73 m2 07/11/2017 [facility] COMPREHENSIVE METABOLIC PANEL(DBIL NOT INCLUDED) Anion Gap 6 07/11/2017 [facility] COMPREHENSIVE METABOLIC PANEL(DBIL NOT INCLUDED) Lab Interpretation Abnormal 07/11/2017 [facility] CRP, HIGH SENS CRP, high sens 0.835 0 - 0.3 07/11/2017 [facility] CRP, HIGH SENS Lab Interpretation Abnormal 07/11/2017 [facility] MAGNESIUM Magnesium 2.2 1.8 - 2.4 07/11/2017 [facility] PHOSPHORUS Phosphorus 5.1 2.5 - 4.9 07/11/2017 [facility] PHOSPHORUS Lab Interpretation Abnormal 07/11/2017 [facility] SED RATE Sed Rate 31 mm/Hr <20 07/11/2017 [facility] SED RATE Lab Interpretation Abnormal 07/11/2017 [facility] INTACT PTH Intact PTH 140.50 8.7 - 77.1 07/10/2017 [facility] INTACT PTH Lab Interpretation Abnormal 07/10/2017 [facility] LIVER PROFILE T Protein 5.1 6.4 - 8.2 07/10/2017 [facility] LIVER PROFILE Albumin 2.3 3.4 - 5 07/10/2017 [facility] LIVER PROFILE T Bilirubin 0.4 0.2 - 1 07/10/2017 [facility] LIVER PROFILE Alk Phos 116 45 - 117 07/10/2017 [facility] LIVER PROFILE AST 15 15 - 37 07/10/2017 [facility] LIVER PROFILE ALT 24 12 - 78 07/10/2017 [facility] LIVER PROFILE D Bilirubin 0.1 0 - 0.2 07/10/2017 [facility] LIVER PROFILE Lab Interpretation Abnormal 07/10/2017 [facility] PT/INR/PTT PT 14.2 Seconds 11.8 - 15.0 07/10/2017 [facility] PT/INR/PTT INR 1.1 SUGGESTED THERAPEUTIC RANGES: INR 2.0-3.0 for MODERATE INTENSITY ANTICOAGULATION INR 2.5-3.5 for HIGH INTENSITY ANTICOAGULATION 07/10/2017 [facility] PT/INR/PTT PTT 35.2 Seconds 23.6 - 36.4 07/10/2017 [facility] VIT D, 25-HYDROXY Vit D, 25-Hydroxy 11.4 30 - 100 07/10/2017 [facility] Vitamin D deficiency has been defined by the [place] [employer] and
Endocrine Society guideline as a level of serum 25-OH Vitamin D less than 20
ng/mL. The Endocrine Society further defines Vitamin D insufficiency as a
level between 21 and 29 ng/mL and sufficiency as a level between 30 and 100
ng/mL.

[facility] VIT D, 25-HYDROXY Lab Interpretation Abnormal 07/10/2017 [facility] RETIC COUNT Retic Count 1.1 0.5 - 1.8 07/10/2017 [facility] RETIC COUNT Immature Retic 7.7 2.3 - 13.4 07/10/2017 [facility] RETIC COUNT Ret Hgb Equivalent 34.00 30.8 - 36.6 07/10/2017 [facility] RETIC COUNT Absolute Retic 0.04 M/uL 0.03 - 0.10 07/10/2017 [facility] ELECTROPH, 24HR UR Volume 900 07/09/2017 [facility] ELECTROPH, 24HR UR Protein, Ur 2.29 g/day 07/09/2017 [facility] ELECTROPH, 24HR UR Comment Electronically signed out by: Jamila Mujica,PhD./[id number] (note) Interpretation:Marked proteinuria, no Bence Ohara protein. 07/09/2017 [facility] T PROT, TIMED UR T Prot (Period) 24 hrs 07/09/2017 [facility] T PROT, TIMED UR T Prot (Volume) 900 07/09/2017 [facility] T PROT, TIMED UR T Prot, Ur 2.539 07/09/2017 [facility] T PROT, TIMED UR T Prot(Calculated) 2285.1 mg/24 Hr 07/09/2017 [facility] FERRITIN Ferritin 51.20 26 - 388 07/09/2017 [facility] IRON PROFILE Iron 37 65 - 175 07/09/2017 [facility] IRON PROFILE TIBC 246 250 - 450 07/09/2017 [facility] IRON PROFILE % Iron Sat 15 07/09/2017 [facility] IRON PROFILE Lab Interpretation Abnormal 07/09/2017 [facility] T PROT/CREA RATIO,UR Creatinine, Ur 47.1 07/08/2017 [facility] T PROT/CREA RATIO,UR T Prot, Ur 2.314 07/08/2017 [facility] T PROT/CREA RATIO,UR T Prot/Crea Ratio,Ur 4.91 0.0 - 0.5 07/08/2017 [facility] T PROT/CREA RATIO,UR Lab Interpretation Abnormal 07/08/2017 [facility] KARI KARI Screen Negative NEG 07/08/2017 [facility] COMPLEMENT C3 Complement C3 134.0 90 - 180 07/08/2017 [facility] COMPLEMENT C4 Complement C4 27.2 10 - 40 07/08/2017 [facility] ELECTROPH, BLD Protein 5.0 07/08/2017 [facility] ELECTROPH, BLD Comment Electronically signed out by: Jamila Mujica,PhD./[id number] (note) INTERPRETATION: There is a decrease in albumin and serum protein levels. This suggests hemodilution, generalized malnutrition, and a protein losing state or a redistribution of body water. 07/08/2017 [facility] FREE KAPPA & LAMBDA LIGHT CHAINS, SERUM Free [place] Lt Ch 80.6 Reference range: 3.3 to 19.4 Unit: mg/L 07/08/2017 [facility] FREE KAPPA & LAMBDA LIGHT CHAINS, SERUM Free [place] Lt Ch 45.4 Reference range: 5.7 to 26.3 Unit: mg/L 07/08/2017 [facility] FREE KAPPA & LAMBDA LIGHT CHAINS, SERUM [place]/Lambda Ratio 1.78 Reference range: 0.26 to 1.65 07/08/2017 [facility] FREE KAPPA & LAMBDA LIGHT CHAINS, SERUM Lab Interpretation Abnormal 07/08/2017 [facility] HIV-1/HIV-2 ROUTINE SCREENING HIV-1/HIV-2 Negative NEG 07/08/2017 [facility] NEUTROPHILE AB MPO-ANCA (note) MPO: < 9.0 Test performed atLab Cristiane MPO Reference Interval: 0.0 - 9.0 U/ml IU/mL 07/08/2017 [facility] NEUTROPHILE AB PR3-ANCA (note) PR3: <3.5 Test performedatLab [place] PR3 Reference Interval 0.0 - 3.5 U/ ml IU/mL 07/08/2017 [facility] DUPLEX DOPPLER ABD/PEL VASCULAR STUDY, COMPLETE <p>IMPRESSION:</p><p>1.Mildly [...] Meghann Peres MD, 07/07/2017 11:02 AM 07/07/2017 [facility] DUPLEX DOPPLER ABD/PEL VASCULAR STUDY, COMPLETE <p>EXAM: [...] pleural effusions are present Other: None. 07/07/2017 [facility] DUPLEX DOPPLER ABD/PEL VASCULAR STUDY, COMPLETE <p styleCode="header">Interface, Rad/Mammog In - 07/07/2017 11:06 AM SENIOR PRODUCT ANALYST</p><p><span>EXAM: US RENAL WITH DOPPLER</span>

<span>DATE: 07/07/2017 9:59 [...] Meghann Peres MD, 07/07/2017 11:02 AM 07/07/2017 [facility] FREE T4 Free T4 1.02 0.89 - 1.76 07/06/2017 [facility] TSH TSH 3.16 uIU/mL 0.36 - 3.74 07/06/2017 [facility] TRANSTHORACIC ECHO (TTE) TRANSTHORACIC ECHO (TTE) Transthoracic Echo Report DINESH DIAZ Age:62 Gender: M :1955 Exam Date: 07/05/2017 07:14 Exam Location: [facility] Echo Ordering Phys: DENI OTOOLE V Referring Phys:[id number] Reading Phys:Mateo Deras MD Fellow Phys: Fellow Phys: Tile Helper: Tegan Morris Reason For Exam: Indications:pleural effusion, BLE edema, compliant on bp-meds/lasix ICD-9 Codes: Exam Type: Transthoracic Echo Procedure CPT:11157 Addtional CPT: Ht (in): 69 BSA: 1.93HR: [...] BP 43.5 cm LV Cardiac Output MOD [id number] cm/min LV Cardiac Index MOD BP 1799 cm/minm LA Volume 68.5 cm18 - 58 / 22 - 52 cm DOPPLER AV Peak Dafikpcm708 cm/s AV Peak Gradient7.9 mmHg AV Mean Kkzfxbqa05.7 cm/s AV Mean Gradient4 mmHg AV Velocity Time Integral 26.7 cm LVOT Peak Kanhmyzt430 cm/s LVOT Peak Gradient4.7 mmHg LVOT Mean Sexzwilo36.1 cm/s LVOT Mean Gradient2 mmHg LVOT Velocity Time Integral 18.9 cm LVOT Stroke Fmsmzg40.4 cm AV Area Cont Eq vti 2.6 cm AV Area Cont Eq pk2.9 cm Mitral E Point Velocity 118 cm/s Mitral A Point Velocity 84 cm/s Mitral E to A Ratio 1.4 MV Deceleration [place] 711 cm/s MV Deceleration Mzia992 ms PV Peak Yxgaugke93.7 cm/s PV Peak Gradient1.9 mmHg LV E' [...] BP 43.5 cm LV Cardiac Output MOD [id number] cm/min LV Cardiac Index MOD BP 1799 cm/minm LA Volume 68.5 cm18 - 58 / 22 - 52 cm DOPPLER AV Peak Ujdcrxmn397 cm/s AV Peak Gradient7.9 mmHg AV Mean Rjndtbxw97.7 cm/s AV Mean Gradient4 mmHg AV Velocity Time Integral 26.7 cm LVOT Peak Gifzppsk979 cm/s LVOT Peak Gradient4.7 mmHg LVOT Mean Lzzxnxee35.1 cm/s LVOT Mean Gradient2 mmHg LVOT Velocity Time Integral 18.9 cm LVOT Stroke Ipaugv52.4 cm AV Area Cont Eq vti 2.6 cm AV Area Cont Eq pk2.9 cm Mitral E Point Velocity 118 cm/s Mitral A Point Velocity 84 cm/s Mitral E to A Ratio 1.4 MV Deceleration [place] 711 cm/s MV Deceleration Meoo955 ms PV Peak Xutijmrh32.7 cm/s PV Peak Gradient1.9 mmHg LV E' Lateral Velocity6.1 cm/s Mitral E to LV E' Lateral Ratio 19.4 LV E' Septal Velocity 5.7 cm/s Mitral E to LV E' Septal Ratio20.8 07/05/2017 [facility] FOLIC ACID Folic Acid 8.3 5.39 - 24 07/05/2017 [facility] HEMOGLOBIN A1C Hemoglobin A1c 8.5 4.3 - 6.1 07/05/2017 High [facility] HEMOGLOBIN A1C Est Average Gluc 197.3 07/05/2017 [facility] HEMOGLOBIN A1C Lab Interpretation Abnormal 07/05/2017 [facility] HEPATITIS PANEL HCV IgG Negative NEG 07/05/2017 [facility] HEPATITIS PANEL HBsAg Negative NEG 07/05/2017 [facility] HEPATITIS PANEL HAV, IgM Negative NEG 07/05/2017 [facility] HEPATITIS PANEL HBcAb, IgM Negative NEG 07/05/2017 [facility] VITAMIN B12 Vitamin B12 732 211 - 911 07/05/2017 [facility] DUPLEX DOPPLER LOWER EXTREMITY VENOUS, BILATERAL <p>IMPRESSION:</p><p>1.No [...] lower extremity superficial soft tissue edema. This [facility] radiology report is a preliminary resident dictation untilfinalized by an attending.Changes to this preliminary report may occurin an additional preliminary or finalized version. Dictated By: Steven Elliott MD, 07/05/2017 3:56 AM I have reviewed the study and agree with the findings in this report. Signed By: Mervin Mendoza MD, 07/05/2017 4:30 AM 07/05/2017 [facility] DUPLEX DOPPLER LOWER EXTREMITY VENOUS, BILATERAL <p>EXAM: [...] lower extremity superficial soft tissue edema. 07/05/2017 [facility] DUPLEX DOPPLER LOWER EXTREMITY VENOUS, BILATERAL <p styleCode="header">Interface, Rad/Mammog In - 07/05/2017 4:34 AM SENIOR PRODUCT ANALYST</p><p><span>EXAM: US BILATERAL LOWER EXTREMITY VENOUS DOPPLER</span>

<span>DATE: [...] lower extremity superficial soft tissue edema.</span>

<span>This [facility] radiology report is a preliminary resident dictation [...] lower extremity superficial soft tissue edema. This [facility] radiology report is a preliminary resident dictation until finalized by an attending. Changes to this preliminary report may occur in an additional preliminary or finalized version. Dictated By: Steven Elliott MD, 07/05/2017 3:56 AM I have reviewed the study and agree with the findings in this report. Signed By: Mervin Mendoza MD, 07/05/2017 4:30 AM 07/05/2017 [facility] 12 LEAD EKG 12 LEAD EKG FOR [facility] Test Date:2017-07-04 Pat Name: DINESH DIAZDepartment: : Gender: MTechnician: [id number] :1955 Requested By: Order Number:Winston EVANS: Ruben Grant Measurements IntervalsAxis Rate: 78 P:15 MD: 160QRS:25 QRSD: 112T:203 QT: 379 QTc:434 Interpretive Statements SINUS RHYTHM MODERATE INTRAVENTRICULAR CONDUCTION DELAY POSSIBLE ANTEROSEPTAL INFARCTION, INDETERMINATE AGE NONSPECIFIC T WAVE ABNORMALITY POOR R WAVE PROGRESSION ABNORMAL ECG Electronically Signed On 07-05-17 19:07:02 SENIOR PRODUCT ANALYST by Ruben Grant 07/04/2017 [facility] POC CO2 POC 23 21 - 32 07/04/2017 Physician Notified [facility] POC Chloride POC 107 98 - 107 07/04/2017 [facility] POC Potassium POC 4.6 3.5 - 5.1 07/04/2017 [facility] POC Sodium POC 142 136 - 145 07/04/2017 [facility] POC Glucose POC 310 74 - 106 07/04/[address] [facility] POC Urea Nitrogen POC 41 7 - 18 07/04/[address] [facility] POC Creatinine POC 3.4 0.6 - 1.3 07/04/[address] [facility] POC Calcium Ionized POC 1.09 1.15 - 1.29 07/04/2017 Low [facility] POC Hemoglobin POC 14.6 14 - 18 07/04/2017 [facility] POC Hematocrit POC 43.0 40 - 54 07/04/2017 [facility] POC GFR, Estimated 18 mL/min/1.73 m2 07/04/2017 [facility] POC GFR, Estim, Afr-Am 22 mL/min/1.73 m2 07/04/2017 [facility] POC Lab Interpretation Abnormal 07/04/2017 [facility] TROPONIN I POC Troponin POC 0.04 0 - 0.08 07/04/2017 [facility] B NATRIURETIC PEPT B Natriuretic Pept 4625 0 - 100 07/04/2017 High [facility] B NATRIURETIC PEPT Lab Interpretation Abnormal 07/04/2017 [facility] UA CHEMISTRIES Color Yellow 07/04/2017 [facility] UA CHEMISTRIES Clarity Clear 07/04/2017 [facility] UA CHEMISTRIES Spec [place] 1.021 1.001 - 1.035 07/04/2017 [facility] UA CHEMISTRIES pH 6.0 5 - 8 07/04/2017 [facility] UA CHEMISTRIES Protein 3+ NEG 07/04/2017 Abnormal [facility] UA CHEMISTRIES Glucose 3+ NEG 07/04/2017 Abnormal [facility] UA CHEMISTRIES Ketone Negative NEG 07/04/2017 [facility] UA CHEMISTRIES Bilirubin Negative NEG 07/04/2017 [facility] UA CHEMISTRIES Nitrate Negative NEG 07/04/2017 [facility] UA CHEMISTRIES Urobilinogen <1.0 0.2 - 1 07/04/2017 [facility] UA CHEMISTRIES Leukocyte Negative NEG 07/04/2017 [facility] UA CHEMISTRIES Blood 1+ NEG 07/04/2017 Abnormal [facility] UA CHEMISTRIES RBC 9 /HPF 0 - 4 07/04/2017 High [facility] UA CHEMISTRIES WBC 8 /HPF 0 - 5 07/04/2017 High [facility] UA CHEMISTRIES Bacteria Few 07/04/2017 [facility] UA CHEMISTRIES Hyaline Cast 3 /LPF 07/04/2017 [facility] UA CHEMISTRIES Granular Cast 1 /LPF 07/04/2017 [facility] UA CHEMISTRIES Lab Interpretation Abnormal 07/04/2017 [facility] DIABETIC FOOT EXAM <p>Nena Gongora, NADINE 03/27/2017 [...] are normal,left foot appearance is normal. 03/27/2017 [facility] POC GROUP A STREP SCREEN Group A Strep POC neg Neg 03/27/2017 [facility] POC GROUP A STREP SCREEN GAS (Contr) pass Pass 03/27/2017 [facility] CHEM PANEL eGFR 46 04/05/2016 Result Comment: [...] should be multiplied by the estimated BMI. [facility] CHEM PANEL Glucose Lvl 270 70 - 99 04/05/2016 [facility] CHEM PANEL Creatinine Lvl 1.61 0.50 - 1.40 04/05/2016 [facility] CHEM PANEL BUN 33 7 - 22 04/05/2016 [facility] CHEM PANEL Calcium Lvl 8.3 8.5 - 10.5 04/05/2016 [facility] CHEM PANEL Chloride Lvl 104 95 - 109 04/05/2016 [facility] CHEM PANEL Potassium Lvl 4.3 3.5 - 5.1 04/05/2016 [facility] CHEM PANEL AGAP 11.3 10.0 - [...] Lymphocytes # 1.7 1.0 - 5.5 04/05/2016 [facility] HEMATOLOGY Monocytes # 0.7 0.0 - 0.8 04/05/2016 [facility] HEMATOLOGY MCHC 33.2 32.0 - 36.0 04/05/2016 [facility] HEMATOLOGY RDW 13.8 11.5 - 14.5 04/05/2016 [facility] HEMATOLOGY Platelet 187 133 - 450 04/05/2016 [facility] HEMATOLOGY MCV 85.7 80.0 - 94.0 04/05/2016 [facility] HEMATOLOGY MCH 28.4 27.0 - 31.0 04/05/2016 [facility] HEMATOLOGY MPV 7.8 7.4 - 10.4 04/05/2016 [facility] HEMATOLOGY WBC 7.0 3.7 - 10.4 04/05/2016 [facility] HEMATOLOGY Hgb 12.0 14.0 - 18.0 04/05/2016 [facility] HEMATOLOGY RBC 4.22 4.70 - 6.10 04/05/2016 [facility] HEMATOLOGY Hct 36.2 42.0 - 54.0 04/05/2016 [facility] CHEM PANEL Globulin 3.3 2.7 - 4.2 04/04/2016 [facility] CHEM PANEL A/G Ratio 1.0 0.7 - 1.6 04/04/2016 [facility] CHEM PANEL B/C Ratio 19 6 - 25 04/04/2016 [facility] CHEM PANEL AGAP 12.0 10.0 - 20.0 04/04/2016 [facility] CHEM PANEL eGFR 49 04/04/2016 Result [...] should be multiplied by the estimated BMI. [facility] CHEM PANEL Glucose Lvl 106 70 - 99 04/04/2016 [facility] CHEM PANEL BUN 29 7 - 22 04/04/2016 [facility] CHEM PANEL Creatinine Lvl 1.52 0.50 - 1.40 04/04/2016 [facility] CHEM PANEL Sodium Lvl 139 135 - 145 04/04/2016 [facility] CHEM PANEL Potassium Lvl 4.0 3.5 - 5.1 04/04/2016 [facility] CHEM PANEL Chloride Lvl 105 95 - 109 04/04/2016 [facility] CHEM PANEL CO2 26 24 - 32 04/04/2016 [facility] CHEM PANEL Calcium Lvl 8.8 8.5 - 10.5 04/04/2016 [facility] CHEM PANEL Total Protein 6.6 6.4 - 8.4 04/04/2016 [facility] CHEM PANEL ALT 14 0 - 65 04/04/2016 [facility] CHEM PANEL Albumin Lvl 3.3 3.5 - 5.0 04/04/2016 [facility] CHEM PANEL AST 12 0 - 37 04/04/2016 [facility] CHEM PANEL Alk Phos 69 39 - 136 04/04/2016 [facility] CHEM PANEL Bili Total 0.4 0.2 - 1.3 04/04/2016 [facility] HEMATOLOGY WBC 10.5 3.7 - 10.4 04/04/2016 [facility] HEMATOLOGY MPV 7.3 7.4 - 10.4 04/04/2016 [facility] HEMATOLOGY Platelet 210 133 - 450 04/04/2016 [facility] HEMATOLOGY MCHC 33.7 32.0 - 36.0 04/04/2016 [facility] HEMATOLOGY RDW 13.7 11.5 - 14.5 04/04/2016 [facility] HEMATOLOGY MCV 84.2 80.0 - 94.0 04/04/2016 [facility] HEMATOLOGY Hgb 12.2 14.0 - 18.0 04/04/2016 [facility] HEMATOLOGY Hct 36.2 42.0 - 54.0 04/04/2016 [facility] HEMATOLOGY MCH 28.4 27.0 - 31.0 04/04/2016 [facility] HEMATOLOGY RBC 4.30 4.70 - 6.10 04/04/2016 [facility] HEMATOLOGY Lymphocytes 18.8 20.0 - 40.0 04/04/2016 [facility] HEMATOLOGY Segs 72.2 45.0 - 75.0 04/04/2016 [facility] HEMATOLOGY Monocytes 6.9 2.0 - 12.0 04/04/2016 [facility] HEMATOLOGY Lymphocytes # 2.0 1.0 - 5.5 04/04/2016 [facility] HEMATOLOGY Eosinophils # 0.2 0.0 - 0.5 04/04/2016 [facility] HEMATOLOGY Segs-Bands # 7.6 1.5 - 8.1 04/04/2016 [facility] HEMATOLOGY Monocytes # 0.7 0.0 - 0.8 04/04/2016 [facility] HEMATOLOGY Basophils 0.3 0.0 - 1.0 04/04/2016 [facility] HEMATOLOGY Eosinophils 1.8 0.0 - 4.0 04/04/2016 [facility] LIPIDS CHD Risk 6.65 4.00 - 7.30 04/04/2016 [facility] LIPIDS VLDL 51 04/04/2016 [facility] LIPIDS LDL (Calculated) 124 <=99 mg/dL 04/04/2016 [facility] LIPIDS HDL 31 >=61 mg/dL 04/04/2016 [facility] LIPIDS Trig 254 <=149 mg/dL 04/04/2016 [facility] LIPIDS Chol 206 <=199 mg/dL 04/04/2016 [facility] SPECIAL CHEMISTRY Hgb A1C 7.6 <=5.6 % 04/04/2016 [facility] DRUG SCREEN UDS Note See Note *NA* (04/03/16 10:57 PM) 04/04/2016 [facility] DRUG SCREEN U Opiate Scr Negative *NA* (04/03/16 10:57 PM) Negative 04/04/2016 [facility] DRUG SCREEN U Cannab Scr Negative *NA* (04/03/16 10:57 PM) Negative 04/04/2016 [facility] DRUG SCREEN U Cocaine Scr Negative *NA* (04/03/16 10:57 PM) Negative 04/04/2016 [facility] DRUG SCREEN U Benzodia Scr Negative *NA* (04/03/16 10:57 PM) Negative 04/04/2016 [facility] DRUG SCREEN U Phencyc Scr Negative *NA* (04/03/16 10:57 PM) Negative 04/04/2016 [facility] DRUG SCREEN U Brittney Scr Negative *NA* (04/03/16 10:57 PM) Negative 04/04/2016 [facility] DRUG SCREEN U Amph Scr Negative *NA* (04/03/16 10:57 PM) Negative 04/04/2016 [facility] URINE AND STOOL UA Urobilinogen <=1.0 mg/dL 0.1 - 1.0 04/04/2016 [facility] URINE AND STOOL UA Blood Negative (04/03/16 10:57 PM) Negative 04/04/2016 [facility] URINE AND STOOL UA Leuk Est Negative (04/03/16 10:57 PM) Negative 04/04/2016 [facility] URINE AND STOOL UA Nitrite Negative (04/03/16 10:57 PM) Negative 04/04/2016 [facility] URINE AND STOOL UA WBC 1 0 - 5 04/04/2016 [facility] URINE AND STOOL UA Sq Epi Occasional /LPF Few /LPF 04/04/2016 [facility] URINE AND STOOL UA Hyal Cast 2 0 - 2 04/04/2016 [facility] URINE AND STOOL UA RBC 6 0 - 2 04/04/2016 [facility] URINE AND STOOL UA Ketones Negative mg/dL Negative mg/dL 04/04/2016 [facility] URINE AND STOOL UA Bili Negative *NA* (04/03/16 10:57 PM) Negative 04/04/2016 [facility] URINE AND STOOL UA Glucose 150 mg/dL Negative mg/dL 04/04/2016 [facility] URINE AND STOOL UA Color Ltyellow 04/04/2016 [facility] URINE AND STOOL UA Turbidity Clear (04/03/16 10:57 PM) Clear 04/04/2016 [facility] URINE AND STOOL UA Spec Grav 1.017 <=1.030 04/04/2016 [facility] URINE AND STOOL UA Protein 100 mg/dL Negative mg/dL 04/04/2016 [facility] URINE AND STOOL UA pH 6.0 5.0 - 8.0 04/04/2016 [facility] CARDIAC ENZYMES Troponin-I <0.02 0.00 - 0.40 04/04/2016 [facility] CARDIAC ENZYMES CK MB 3.3 0.5 - 3.6 04/04/2016 [facility] CARDIAC ENZYMES Total CK 74 12 - 191 04/04/2016 [facility] CARDIAC ENZYMES CK MB Index 4.5 0.0 - 2.5 04/04/2016 [facility] CHEM PANEL eGFR 45 04/04/2016 Result [...] should be multiplied by the estimated BMI. [facility] CHEM PANEL Total Protein 6.9 6.4 - 8.4 04/04/2016 [facility] CHEM PANEL AGAP 12.2 10.0 - 20.0 04/04/2016 [facility] CHEM PANEL A/G Ratio 1.0 0.7 - 1.6 04/04/2016 [facility] CHEM PANEL B/C Ratio 20 6 - 25 04/04/2016 [facility] CHEM PANEL Globulin 3.5 2.7 - 4.2 04/04/2016 [facility] CHEM PANEL Bili Total 0.5 0.2 - 1.3 04/04/2016 [facility] CHEM PANEL Albumin Lvl 3.4 3.5 - 5.0 04/04/2016 [facility] CHEM PANEL ALT 15 0 - 65 04/04/2016 [facility] CHEM PANEL Alk Phos 75 39 - 136 04/04/2016 [facility] CHEM PANEL AST 10 0 - 37 04/04/2016 [facility] CHEM PANEL Calcium Lvl 8.5 8.5 - 10.5 04/04/2016 [facility] CHEM PANEL Chloride Lvl 105 95 - 109 04/04/2016 [facility] CHEM PANEL CO2 26 24 - 32 04/04/2016 [facility] CHEM PANEL Sodium Lvl 139 135 - 145 04/04/2016 [facility] CHEM PANEL Potassium Lvl 4.2 3.5 - 5.1 04/04/2016 [facility] CHEM PANEL BUN 32 7 - 22 04/04/2016 [facility] CHEM PANEL Creatinine Lvl 1.63 0.50 - 1.40 04/04/2016 [facility] CHEM PANEL Glucose Lvl 129 70 - 99 04/04/2016 [facility] HEMATOLOGY PTT 26.6 22.9 - 35.8 04/04/2016 [facility] HEMATOLOGY INR 0.99 0.85 - 1.17 04/04/2016 [facility] HEMATOLOGY PT 13.4 12.0 - 14.7 04/04/2016 [facility] MCH 28.3 27.0 - 31.0 04/04/2016 [facility] HEMATOLOGY MCHC 33.6 32.0 - 36.0 04/04/2016 [facility] HEMATOLOGY RDW 13.4 11.5 - 14.5 04/04/2016 [facility] HEMATOLOGY MPV 7.4 7.4 - 10.4 04/04/2016 [facility] HEMATOLOGY Platelet 195 133 - 450 04/04/2016 [facility] HEMATOLOGY WBC 13.0 3.7 - 10.4 04/04/2016 [facility] HEMATOLOGY RBC 4.37 4.70 - 6.10 04/04/2016 [facility] HEMATOLOGY Hgb 12.4 14.0 - 18.0 04/04/2016 [facility] HEMATOLOGY Hct 36.8 42.0 - 54.0 04/04/2016 [facility] HEMATOLOGY MCV 84.3 80.0 - 94.0 04/04/2016 [facility] HEMATOLOGY Eosinophils # 0.3 0.0 - 0.5 04/04/2016 [facility] HEMATOLOGY Monocytes # 0.8 0.0 - 0.8 04/04/2016 [facility] HEMATOLOGY Basophils # 0.1 0.0 - 0.2 04/04/2016 [facility] HEMATOLOGY Lymphocytes # 1.5 1.0 - 5.5 04/04/2016 [facility] HEMATOLOGY Lymphocytes 11.7 20.0 - 40.0 04/04/2016 [facility] HEMATOLOGY Eosinophils 2.2 0.0 - 4.0 04/04/2016 [facility] HEMATOLOGY Monocytes 6.4 2.0 - 12.0 04/04/2016 [facility] Segs-Bands # 10.3 1.5 - 8.1 04/04/2016 [facility] HEMATOLOGY Basophils 0.4 0.0 - 1.0 04/04/2016 [facility] HEMATOLOGY Segs 79.3 45.0 - 75.0 04/04/2016 [facility] Pathology Reports No Data Provided for This Section Diagnostic Reports Report Value Date Source Elbow 3 views DX HISTORY: - M25.521 Pain in right elbow TECHNIQUE: AP, lateral, and oblique views of the right elbow. COMPARISON: None available. FINDINGS: Normal mineralization and anatomic alignment of the bones without fracture or dislocation. Ijtq-ur-tqwinhck osteoarthritic degenerative changes are present with at least one ossific body seen. There is no joint space effusion. Atherosclerotic vascular calcification is present. IMPRESSION: Degenerative change as above. No acute osseous injury. [id number] 06/08/2018 [facility] Chest 1view DX EXAM: [...] infectious process cannot be completely excluded. SL: [id number] 02/15/2018 [facility] Foot 3 views bilateral DX Bilateral [...] Small vessel arterial calcifications are again noted. [id number] 02/05/2018 [facility] Chest 1view DX Patient Name: DINESH DIAZ : 1955 Age: 62 years, Male MR: [id number] Study: Chest 1view DX 01/19/2018 10:37 AM [...] spine. IMPRESSION: No acute radiographic abnormality. SL: [id number] 01/19/2018 [facility] Chest 1 v for Placement DX Patient Name: DINESH DIAZ : 1955; Age: 62 years Male MR: [id number] Study: Chest 1 v for Placement DX [...] radiographic evidence of acute pulmonary disease. SL: [id number] 01/09/2018 [facility] Foot 3 views bilateral DX PROCEDURE: [...] No radiographic evidence for active osteomyelitis. SL: [id number] 01/02/2018 [facility] Brain wo contrast CT ADDENDUM: I [...] no mass, hemorrhage or subacute stroke. SL: [id number] 01/02/2018 [facility] Chest 1view DX Clinical Indication: - [...] for acute process in the chest. SL: [id number] 01/02/2018 [facility] CVC insert non-tunnel age 5+ yrs [...] micropuncture sheath was removed and a 7 [place] triple lumen central line placed and positioned [...] time was 0.3 minutes (1 mGy). 12/19/2017 [facility] Ext Lower Arterial bilat w pressure US Please refer to heart lab report, located under Vascular in CARE4. 12/14/2017 [facility] Foot series DX Study: Right foot, [...] vascular calcifications are noted. SL: [id number] 12/12/2017 [facility] Chest 1view DX Clinical Indication: - [...] No acute cardiopulmonary abnormality. 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: XR CHEST 2 VIEWS DATE: 07/09/2017 [...] Meghann Peres MD, 07/09/2017 11:13 AM 07/09/2017 [facility] U/S RENAL IMPRESSION:1.Mildly increased bilateral renal resistive [...] Meghann Peres MD, 07/07/2017 11:02 AM 07/07/2017 [facility] COMPUTED TOMOGRAPHY ABDOMEN AND PELVIS WITHOUT CONTRAST [...] Home Hernández M.D., 07/07/2017 9:11 AM 07/06/2017 [facility] XRAY SPINE CER 2-3 AP- LAT- ODONTOID [...] Jose Garvin MD, 02/06/2017 9:47 AM 02/03/2017 [facility] Carotid artery Doppler bilat US EXAM: Ultrasound [...] hemodynamically significant stenosis seen. SL: [id number] 04/04/2016 [facility] Brain wo contrast MRI Patient Name: DINESH DIAZ : 1955; Age: 60 years Male MR: [id number] Study: Brain wo contrast MRI 04/04/2016 1:15 [...] gadolinium is recommended to document stability. SL: [id number] 04/04/2016 [facility] Brain wo contrast CT I have reviewed this examination and I concur. Patient Name: DINESH DIAZ : 1955; Age: 60 years y/o Male MR: [id number] Study: Brain wo contrast CT 04/03/2016 8:37 [...] Unremarkable noncontrast head CT. SL: KAYCEE 04/03/2016 [facility] Chest 1view DX Patient Name: DINESH DIAZ : 1955; Age: 60 years y/o Male MR: [id number] Study: Chest 1view DX 04/03/2016 7:39 PM CDT Ordering Physician: Clinical Indication: Chest pain; Comparison: None 1 view chest Lungs are clear. Cardiomediastinal silhouette normal. There is no pleural effusion or pneumothorax. No osseous abnormalities. IMPRESSION: No acute finding. SL: [id number] 04/03/2016 [facility] Consultation Notes No Data Provided for This Section Discharge Summaries No Data Provided for This Section History and Physicals No Data Provided for This Section Vital Signs Vital Sign Value Date Comments Source Systolic (mm Hg) 169 02/16/2018 [facility] Diastolic (mm Hg) 68 02/16/2018 [facility] Temperature Oral (F) 97.5 F 02/16/2018 [facility] Heart Rate 73 02/16/2018 [facility] Respitory Rate 18 02/16/2018 [facility] Systolic (mm Hg) 110 02/16/2018 [facility] Diastolic (mm Hg) 94 02/16/2018 [facility] Respitory Rate 17 02/16/2018 [facility] Temperature Oral (F) 98.5 F 02/16/2018 [facility] Heart Rate 75 02/16/2018 [facility] Temperature Oral (F) 97.6 F 02/16/2018 [facility] Systolic (mm Hg) 145 02/16/2018 [facility] Diastolic (mm Hg) 82 02/16/2018 [facility] Respitory Rate 16 02/16/2018 [facility] Heart Rate 62 02/16/2018 [facility] BMI Calculated 20.27 02/16/2018 [facility] Height 175.26 cm 02/16/2018 [facility] Weight 62.273 02/16/2018 [facility] Systolic (mm Hg) 127 02/16/2018 [facility]: [facility] Diastolic (mm Hg) 79 02/16/2018 [facility]: [facility] Systolic (mm Hg) 125 02/15/2018 [facility]: [facility] Diastolic (mm Hg) 80 02/15/2018 [facility]: [facility] Heart Rate 64 {beats}/min 02/15/2018 SNF: [facility] Systolic (mm Hg) 122 02/15/2018 [facility]: [facility] Diastolic (mm Hg) 88 02/15/2018 [facility]: [facility] Systolic (mm Hg) 118 02/15/2018 [facility]: [facility] Diastolic (mm Hg) 83 02/15/2018 [facility]: [facility] Systolic (mm Hg) 128 02/15/2018 [facility]: [facility] Diastolic (mm Hg) 60 02/15/2018 [facility]: [facility] Heart Rate 83 {beats}/min 02/15/2018 [facility]: [facility] Respitory Rate 20 02/14/2018 [facility]: [facility] Systolic (mm Hg) 122 02/14/2018 [facility]: [facility] Diastolic (mm Hg) 65 02/14/2018 [facility]: [facility] Temperature Oral (F) 96.9 F 02/14/2018 [facility]: [facility] Heart Rate 76 {beats}/min 02/14/2018 [facility]: [facility] Systolic (mm Hg) 121 02/14/2018 [facility]: [facility] Diastolic (mm Hg) 67 02/14/2018 [facility]: [facility] Heart Rate 67 {beats}/min 02/14/2018 [facility]: [facility] Systolic (mm Hg) 115 02/14/2018 [facility]: [facility] Diastolic (mm Hg) 80 02/14/2018 [facility]: [facility] Systolic (mm Hg) 118 02/14/2018 [facility]: [facility] Diastolic (mm Hg) 85 02/14/2018 [facility]: [facility] Systolic (mm Hg) 134 02/14/2018 [facility]: [facility] Diastolic (mm Hg) 65 02/14/2018 [facility]: [facility] Systolic (mm Hg) 175 02/13/2018 [facility]: [facility] Diastolic (mm Hg) 60 02/13/2018 [facility]: [facility] Heart Rate 73 {beats}/min 02/13/2018 [facility]: [facility] Systolic (mm Hg) 175 02/13/2018 [facility]: [facility] Diastolic (mm Hg) 60 02/13/2018 [facility]: [facility] Weight 125.6 02/13/2018 [facility]: [facility] Height 69 02/13/2018 [facility]: [facility] Heart Rate 67 {beats}/min 02/13/2018 [facility]: [facility] Systolic (mm Hg) 162 02/13/2018 [facility]: [facility] Diastolic (mm Hg) 91 02/13/2018 [facility]: [facility] Heart Rate 66 {beats}/min 02/12/2018 [facility]: [facility] Systolic (mm Hg) 158 02/12/2018 [facility]: [facility] Diastolic (mm Hg) 84 02/12/2018 SNF: [facility] Respitory Rate 20 02/12/2018 SNF: [facility] Systolic (mm Hg) 127 02/12/2018 SNF: [facility] Diastolic (mm Hg) 79 02/12/2018 SNF: [facility] Temperature Oral (F) 98.7 F 02/12/2018 SNF: [facility] Heart Rate 87 {beats}/min 02/12/2018 SNF: [facility] Respitory Rate 18 02/12/2018 SNF: [facility] Temperature Oral (F) 98.8 F 02/12/2018 SNF: [facility] Systolic (mm Hg) 121 02/12/2018 SNF: [facility] Diastolic (mm Hg) 60 02/12/2018 SNF: [facility] Heart Rate 76 {beats}/min 02/12/2018 SNF: [facility] Systolic (mm Hg) 122 02/11/2018 SNF: [facility] Diastolic (mm Hg) 74 02/11/2018 SNF: [facility] Heart Rate 64 {beats}/min 02/11/2018 SNF: [facility] Systolic (mm Hg) 122 02/11/2018 SNF: [facility] Diastolic (mm Hg) 74 02/11/2018 SNF: [facility] Systolic (mm Hg) 155 02/11/2018 SNF: [facility] Diastolic (mm Hg) 87 02/11/2018 SNF: [facility] Heart Rate 64 {beats}/min 02/11/2018 SNF: [facility] Systolic (mm Hg) 150 02/11/2018 SNF: [facility] Diastolic (mm Hg) 89 02/11/2018 SNF: [facility] Systolic (mm Hg) 147 02/10/2018 SNF: [facility] Diastolic (mm Hg) 94 02/10/2018 SNF: [facility] Heart Rate 72 {beats}/min 02/10/2018 SNF: [facility] Systolic (mm Hg) 143 02/10/2018 SNF: [facility] Diastolic (mm Hg) 84 02/10/2018 SNF: [facility] Temperature Oral (F) 98.8 F 02/10/2018 SNF: [facility] Heart Rate 84 {beats}/min 02/10/2018 SNF: [facility] Respitory Rate 20 02/10/2018 SNF: [facility] Systolic (mm Hg) 139 02/10/2018 SNF: [facility] Diastolic (mm Hg) 62 02/10/2018 SNF: [facility] Respitory Rate 18 02/10/2018 [facility] Systolic (mm Hg) 165 02/10/2018 [facility] Diastolic (mm Hg) 75 02/10/2018 [facility] Heart Rate 70 02/10/2018 [facility] Heart Rate 75 02/10/2018 [facility] Temperature Oral (F) 97.5 F 02/10/2018 [facility] Systolic (mm Hg) 176 02/10/2018 [facility] Diastolic (mm Hg) 70 02/10/2018 [facility] Respitory Rate 18 02/10/2018 [facility] Systolic (mm Hg) 172 02/09/2018 [facility] Diastolic (mm Hg) 70 02/09/2018 [facility] Heart Rate 68 02/09/2018 [facility] Respitory Rate 18 02/09/2018 [facility] Temperature Oral (F) 98.8 F 02/09/2018 [facility] Temperature Oral (F) 98.0 F 02/09/2018 [facility] BMI Calculated 18.97 02/02/2018 [facility] Height 175.26 cm 02/02/2018 [facility] Weight 58.267 02/02/2018 [facility] Temperature Oral (F) 97.4 F 01/29/2018 [facility] Heart Rate 76 01/29/2018 [facility] Systolic (mm Hg) 181 01/29/2018 [facility] Diastolic (mm Hg) 80 01/29/2018 [facility] Respitory Rate 18 01/29/2018 [facility] Temperature Oral (F) 97.4 F 01/29/2018 [facility] Respitory Rate 19 01/29/2018 [facility] Heart Rate 74 01/29/2018 [facility] Systolic (mm Hg) 167 01/29/2018 [facility] Diastolic (mm Hg) 70 01/29/2018 [facility] Heart Rate 64 01/29/2018 [facility] Systolic (mm Hg) 105 01/29/2018 [facility] Diastolic (mm Hg) 55 01/29/2018 [facility] Respitory Rate 18 01/29/2018 [facility] Temperature Oral (F) 97.8 F 01/29/2018 [facility] Height 175.26 cm 01/03/2018 [facility] BMI Calculated 18.38 01/02/2018 [facility] Height 175.26 cm 01/02/2018 [facility] Weight 56.449 01/02/2018 [facility] Systolic (mm Hg) 170 12/21/2017 [facility] Diastolic (mm Hg) 85 12/21/2017 [facility] Respitory Rate 18 12/21/2017 [facility] Heart Rate 70 12/21/2017 [facility] Temperature Oral (F) 97.7 F 12/21/2017 [facility] Temperature Oral (F) 98.6 F 12/21/2017 [facility] Heart Rate 69 12/21/2017 [facility] Systolic (mm Hg) 172 12/21/2017 [facility] Diastolic (mm Hg) 86 12/21/2017 [facility] Respitory Rate 18 12/21/2017 [facility] Heart Rate 65 12/21/2017 [facility] Systolic (mm Hg) 170 12/21/2017 [facility] Diastolic (mm Hg) 80 12/21/2017 [facility] Respitory Rate 18 12/21/2017 [facility] Temperature Oral (F) 98.4 F 12/21/2017 [facility] BMI Calculated 18.87 12/13/2017 [facility] Height 177.8 cm 12/13/2017 [facility] Weight 59.659 12/13/2017 [facility] Weight 61.364 12/12/2017 [facility] Height 177.8 cm 12/12/2017 [facility] BMI Calculated 19.41 12/12/2017 [facility] Systolic (mm Hg) 144 11/30/2017 SNF: [facility] Diastolic (mm Hg) 74 11/30/2017 SNF: [facility] Heart Rate 63 {beats}/min 11/30/2017 SNF: [facility] Systolic (mm Hg) 149 11/30/2017 SNF: [facility] Diastolic (mm Hg) 84 11/30/2017 SNF: [facility] Heart Rate 66 {beats}/min 11/30/2017 SNF: [facility] Systolic (mm Hg) 138 11/29/2017 SNF: [facility] Diastolic (mm Hg) 72 11/29/2017 SNF: [facility] Heart Rate 61 {beats}/min 11/29/2017 SNF: [facility] Systolic (mm Hg) 144 11/28/2017 SNF: [facility] Diastolic (mm Hg) 68 11/28/2017 SNF: [facility] Heart Rate 60 {beats}/min 11/28/2017 SNF: [facility] Respitory Rate 20 11/28/2017 SNF: [facility] Systolic (mm Hg) 152 11/28/2017 SNF: [facility] Diastolic (mm Hg) 76 11/28/2017 SNF: [facility] Temperature Oral (F) 97.6 F 11/28/2017 SNF: [facility] Heart Rate 74 {beats}/min 11/28/2017 SNF: [facility] Respitory Rate 20 11/28/2017 SNF: [facility] Systolic (mm Hg) 152 11/28/2017 SNF: [facility] Diastolic (mm Hg) 76 11/28/2017 SNF: [facility] Temperature Oral (F) 97.6 F 11/28/2017 SNF: [facility] Heart Rate 74 {beats}/min 11/28/2017 SNF: [facility] Systolic (mm Hg) 181 11/28/2017 SNF: [facility] Diastolic (mm Hg) 93 11/28/2017 SNF: [facility] Heart Rate 72 {beats}/min 11/28/2017 SNF: [facility] Systolic (mm Hg) 208 11/27/2017 SNF: [facility] Diastolic (mm Hg) 82 11/27/2017 SNF: [facility] Heart Rate 80 {beats}/min 11/27/2017 SNF: [facility] Systolic (mm Hg) 146 11/27/2017 SNF: [facility] Diastolic (mm Hg) 76 11/27/2017 SNF: [facility] Heart Rate 65 {beats}/min 11/27/2017 SNF: [facility] Systolic (mm Hg) 160 11/26/2017 SNF: [facility] Diastolic (mm Hg) 78 11/26/2017 SNF: [facility] Heart Rate 63 {beats}/min 11/26/2017 SNF: [facility] Systolic (mm Hg) 132 11/26/2017 SNF: [facility] Diastolic (mm Hg) 78 11/26/2017 SNF: [facility] Heart Rate 70 {beats}/min 11/26/2017 SNF: [facility] Systolic (mm Hg) 158 11/25/2017 SNF: [facility] Diastolic (mm Hg) 78 11/25/2017 SNF: [facility] Heart Rate 68 {beats}/min 11/25/2017 SNF: [facility] Respitory Rate 18 11/25/2017 SNF: [facility] Systolic (mm Hg) 121 11/25/2017 SNF: [facility] Diastolic (mm Hg) 65 11/25/2017 SNF: [facility] Temperature Oral (F) 98.8 F 11/25/2017 SNF: [facility] Heart Rate 77 {beats}/min 11/25/2017 SNF: [facility] Respitory Rate 20 11/25/2017 SNF: [facility] Systolic (mm Hg) 143 11/25/2017 SNF: [facility] Diastolic (mm Hg) 76 11/25/2017 SNF: [facility] Temperature Oral (F) 97.7 F 11/25/2017 SNF: [facility] Heart Rate 80 {beats}/min 11/25/2017 SNF: [facility] Systolic (mm Hg) 177 11/25/2017 SNF: [facility] Diastolic (mm Hg) 73 11/25/2017 SNF: [facility] Heart Rate 79 {beats}/min 11/25/2017 SNF: [facility] Weight 127 11/24/2017 SNF: [facility] Systolic (mm Hg) 136 10/11/2017 SNF: [facility] Diastolic (mm Hg) 66 10/11/2017 SNF: [facility] Heart Rate 64 {beats}/min 10/11/2017 SNF: [facility] Systolic (mm Hg) 143 10/11/2017 SN[facility]: [facility] Diastolic (mm Hg) 67 10/11/2017 SNF: [facility] Temperature Oral (F) 98.8 F 10/11/2017 SNF: [facility] Heart Rate 67 {beats}/min 10/11/2017 SNF: [facility] Systolic (mm Hg) 141 10/11/2017 SNF: [facility] Diastolic (mm Hg) 62 10/11/2017 SNF: [facility] Heart Rate 60 {beats}/min 10/11/2017 SN[facility]: [facility] Systolic (mm Hg) 130 10/10/2017 SNF: [facility] Diastolic (mm Hg) 64 10/10/2017 SNF: [facility] Heart Rate 66 {beats}/min 10/10/2017 SNF: [facility] Systolic (mm Hg) 143 10/10/2017 SNF: [facility] Diastolic (mm Hg) 69 10/10/2017 SNF: [facility] Heart Rate 60 {beats}/min 10/10/2017 SN[facility]: [facility] Systolic (mm Hg) 127 10/09/2017 SNF: [facility] Diastolic (mm Hg) 60 10/09/2017 SNF: [facility] Heart Rate 62 {beats}/min 10/09/2017 SNF: [facility] Systolic (mm Hg) 123 10/09/2017 SN[facility]: [facility] Diastolic (mm Hg) 74 10/09/2017 SNF: [facility] Heart Rate 69 {beats}/min 10/09/2017 SN[facility]: [facility] Systolic (mm Hg) 160 10/08/2017 SN[facility]: [facility] Diastolic (mm Hg) 70 10/08/2017 SN[facility]: [facility] Heart Rate 60 {beats}/min 10/08/2017 SN[facility]: [facility] Systolic (mm Hg) 142 10/07/2017 SN[facility]: [facility] Diastolic (mm Hg) 80 10/07/2017 SN[facility]: [facility] Temperature Oral (F) 98.4 F 10/07/2017 SN[facility]: [facility] Heart Rate 65 {beats}/min 10/07/2017 SN[facility]: [facility] Systolic (mm Hg) 160 10/07/2017 SN[facility]: [facility] Diastolic (mm Hg) 84 10/07/2017 SN[facility]: [facility] Heart Rate 60 {beats}/min 10/07/2017 SN[facility]: [facility] Systolic (mm Hg) 160 10/07/2017 SN[facility]: [facility] Diastolic (mm Hg) 73 10/07/2017 SN[facility]: [facility] Heart Rate 60 {beats}/min 10/07/2017 SN[facility]: [facility] Respitory Rate 18 10/06/2017 SNF: [facility] Systolic (mm Hg) 132 10/06/2017 SN[facility]: [facility] Diastolic (mm Hg) 76 10/06/2017 SN[facility]: [facility] Temperature Oral (F) 98.7 F 10/06/2017 SNF: [facility] Heart Rate 76 {beats}/min 10/06/2017 SN[facility]: [facility] Respitory Rate 18 10/05/2017 SN[facility]: [facility] Temperature Oral (F) 98.3 F 10/05/2017 SNF: [facility] Systolic (mm Hg) 143 10/05/2017 SN[facility]: [facility] Diastolic (mm Hg) 60 10/05/2017 SN[facility]: [facility] Heart Rate 60 {beats}/min 10/05/2017 [facility]: [facility] Heart Rate 60 {beats}/min 10/05/2017 SN[facility]: [facility] Systolic (mm Hg) 153 10/05/2017 SN[facility]: [facility] Diastolic (mm Hg) 74 10/05/2017 [facility]: [facility] Heart Rate 64 {beats}/min 10/05/2017 SN[facility]: [facility] Weight 137.3 10/04/2017 SNF: [facility] Height 69 10/04/2017 SNF: [facility] Systolic (mm Hg) 170 10/04/2017 SN[facility]: [facility] Diastolic (mm Hg) 70 10/04/2017 SN[facility]: [facility] Heart Rate 62 {beats}/min 10/04/2017 SN[facility]: [facility] Respitory Rate 18 10/03/2017 SNF: [facility] Systolic (mm Hg) 116 10/03/2017 SN[facility]: [facility] Diastolic (mm Hg) 52 10/03/2017 SNF: [facility] Temperature Oral (F) 98.7 F 10/03/2017 SN[facility]: [facility] Heart Rate 62 {beats}/min 10/03/2017 SN[facility]: [facility] Heart Rate 58 {beats}/min 10/03/2017 SNF: [facility] Systolic (mm Hg) 155 10/03/2017 SN[facility]: [facility] Diastolic (mm Hg) 67 10/03/2017 SNF: [facility] Heart Rate 61 {beats}/min 10/03/2017 SNF: [facility] Systolic (mm Hg) 118 10/02/2017 SNF: [facility] Diastolic (mm Hg) 96 10/02/2017 SN[facility]: [facility] Heart Rate 60 {beats}/min 10/02/2017 SN[facility]: [facility] Systolic (mm Hg) 123 10/01/2017 SNF: [facility] Diastolic (mm Hg) 6 10/01/2017 SNF: [facility] Heart Rate 60 {beats}/min 10/01/2017 SN[facility]: [facility] Systolic (mm Hg) 130 09/30/2017 SNF: [facility] Diastolic (mm Hg) 58 09/30/2017 SNF: [facility] Temperature Oral (F) 98.4 F 09/30/2017 SNF: [facility] Temperature Oral (F) 98.3 F 09/30/2017 SNF: [facility] Systolic (mm Hg) 125 09/30/2017 SNF: [facility] Diastolic (mm Hg) 60 09/30/2017 SNF: [facility] Heart Rate 60 {beats}/min 09/30/2017 SNF: [facility] Heart Rate 60 {beats}/min 09/30/2017 SNF: [facility] Systolic (mm Hg) 125 09/30/2017 SNF: [facility] Diastolic (mm Hg) 60 09/30/2017 SNF: [facility] Heart Rate 60 {beats}/min 09/30/2017 SNF: [facility] Systolic (mm Hg) 136 09/29/2017 SNF: [facility] Diastolic (mm Hg) 60 09/29/2017 SNF: [facility] Heart Rate 54 {beats}/min 09/29/2017 SNF: [facility] Systolic (mm Hg) 198 09/29/2017 SNF: [facility] Diastolic (mm Hg) 78 09/29/2017 SNF: [facility] Heart Rate 60 {beats}/min 09/29/2017 SNF: [facility] Weight 137.3 09/28/2017 SNF: [facility] Height 69 09/28/2017 SNF: [facility] Respitory Rate 18 09/28/2017 SNF: [facility] Temperature Oral (F) 99.1 F 09/28/2017 SNF: [facility] Heart Rate 60 {beats}/min 09/28/2017 SNF: [facility] Systolic (mm Hg) 181 09/28/2017 SNF: [facility] Diastolic (mm Hg) 74 09/28/2017 SNF: [facility] Heart Rate 60 {beats}/min 09/28/2017 SNF: [facility] Systolic (mm Hg) 139 09/27/2017 SNF: [facility] Diastolic (mm Hg) 78 09/27/2017 SNF: [facility] Temperature Oral (F) 98.1 F 09/27/2017 SNF: [facility] Heart Rate 56 {beats}/min 09/27/2017 SNF: [facility] Respitory Rate 18 09/27/2017 SNF: [facility] Height 69 09/07/2017 SNF: [facility] Weight 137.3 09/07/2017 SNF: [facility] Systolic (mm Hg) 133 07/12/2017 [facility] Diastolic (mm Hg) 81 07/12/2017 [facility] Heart Rate 57 07/12/2017 [facility] Temperature Oral (F) 36.56 Zhanna 07/12/2017 [facility] Respitory Rate 20 07/12/2017 [facility] Weight 73.392 07/12/2017 [facility] BMI Calculated 23.89 07/12/2017 [facility] Height 175.3 cm 07/05/2017 [facility] Systolic (mm Hg) 160 04/05/2016 [facility] Diastolic (mm Hg) 91 04/05/2016 [facility] Systolic (mm Hg) 183 04/05/2016 [facility] Diastolic (mm Hg) 80 04/05/2016 [facility] Temperature Oral (F) 97.4 F 04/05/2016 [facility] Heart Rate 54 04/05/2016 [facility] Respitory Rate 16 04/05/2016 [facility] Respitory Rate 16 04/05/2016 [facility] Heart Rate 60 04/05/2016 [facility] Respitory Rate 16 04/05/2016 [facility] Systolic (mm Hg) 174 04/05/2016 [facility] Diastolic (mm Hg) 91 04/05/2016 [facility] Temperature Oral (F) 97.8 F 04/05/2016 [facility] Temperature Oral (F) 97.4 F 04/05/2016 [facility] Heart Rate 57 04/05/2016 [facility] Weight 68.636 04/04/2016 [facility] Height 175.26 cm 04/04/2016 [facility] BMI Calculated 22.35 04/04/2016 [facility] Weight 69.545 04/04/2016 [facility] BMI Calculated 22.32 04/04/2016 [facility] Height 176.53 cm 04/04/2016 [facility] Encounters Location Location Details Encounter Type Encounter Number Reason For Visit Attending Provider ADM Date DC Date Status Source [facility] Inpatient [id number] Ирина Traoremakeda 04/04/2016 04/05/2016 [facility] [place] [facility] [id number] 01/26/2017 [facility] [place] Office Visit [id number] Inadequately controlled diabetes mellitus Retinopathy Essential hypertension CKD (chronic kidney disease) stage 3, GFR 30-59 ml/min Anemia, unspecified Screening for colorectal cancer Nausea and vomiting, intractability of vomiting not specified, unspecified vomiting type Gastroesophageal reflux disease, esophagitis presence not specified Actinic keratosis Mason Laws MD 01/26/2017 01/26/2017 [facility] [place] [facility] Visit [id number] 01/27/2017 [facility] Scan [facility] Encounter [id number] Nausea and vomiting, intractability of vomiting not specified, unspecified vomiting type Mason Laws MD 01/27/2017 01/28/2017 [facility] Ophthalmology/Optometry [facility] Office Visit [id number] Moderate nonproliferative diabetic retinopathy of both eyes associated with type 2 diabetes mellitus, macular edema presence unspecified Hypertensive retinopathy, bilateral Combined forms of age-related cataract of both eyes Refractive error Lien Simmons OD 01/30/2017 01/30/2017 [facility] Office Visit [id number] S/P cervical spinal fusion Alberto Madrid MD 02/03/2017 02/03/2017 [facility] Encounter [id number] S/P cervical spinal fusion Mason Laws MD 02/03/2017 02/04/2017 [facility] [place] [facility] Visit [id number] 02/21/2017 [facility] [place] Office Visit [id number] Thalamic infarct, acute Essential hypertension CKD (chronic [...] both hands Tessie Arias MD 02/21/2017 02/21/2017 [facility] Medicine [facility] Rehab ([id number]) Office Visit [id number] Risa Carter MD 03/03/2017 03/03/2017 [facility] Dental [place] Office Visit [id number] Visit for dental examination Radha Salas DDS 03/03/2017 03/03/2017 [facility] Same Day Same Day [id number] Cough Shortness of breath Acute pharyngitis, unspecified etiology Type 2 diabetes mellitus with complication, with long-term current use of insulin Nena Gongora NP 03/27/2017 03/27/2017 [facility] Emergency Center ([id number]) [facility] Emergency [id number] Cough Pleural effusion Prabhakar Diop MD 03/27/2017 03/27/2017 [facility] [place] [facility] Visit [id number] 04/18/2017 [facility] Podiatry [place] Office Visit [id number] Callus Onychomycosis Diabetes mellitus type 2 with neurological manifestations Mason Laws MD 04/18/2017 04/18/2017 [facility] GI LAB Service [facility] Telephone [id number] Callie Sheppard 05/09/2017 [facility] Ophthalmology Office Visit [id number] Moderate nonproliferative diabetic retinopathy of both eyes associated with type 2 diabetes mellitus, macular edema presence unspecified Combined forms of age-related cataract of both eyes Rita East Physician 05/10/2017 05/10/2017 [facility] Ophthalmology Nurse Only [id number] Haily Ahumada 05/10/2017 05/10/2017 [facility] [place] Clinical Case Mgt [id number] Ligia Parada RN 05/25/2017 [facility] ([id number]) [facility] Emergency [id number] SOB (shortness of breath) CKD (chronic kidney disease) stage 3, GFR 30-59 ml/min Elif Taylor MD 05/31/2017 05/31/2017 [facility] [place] [facility] Visit [id number] 06/01/2017 [facility] Office Visit [id number] Alberto Madrid MD 06/02/2017 06/02/[address] [facility] Encounter [id number] CKD (chronic kidney disease) stage 3, GFR [...] diabetic nephropathy Tahmina Villeda Fellow() 07/04/2017 07/12/2017 [facility] [place] Telephone [id number] Domenica Ren 07/13/2017 [facility] [place] Telephone [id number] Madeline Talley 07/14/2017 [facility] [place] [facility] Visit [id number] 07/14/2017 [facility] [place] [facility] Visit [id number] 08/01/2017 [facility] [place] [facility] Visit [id number] 08/02/2017 [facility] [place] [facility] Visit [id number] 08/03/2017 [facility] [place] [facility] Visit [id number] 08/04/2017 [facility] Office Visit [id number] Alberto Madrid MD 08/11/2017 08/11/2017 [facility] [place] Office Visit [id number] Mateo Deras MD 10/03/2017 10/03/2017 [facility] Inpatient [id number] Zachary Greenwood 12/12/2017 12/22/2017 [facility] Inpatient [id number] Alcira Nwoha 01/02/2018 01/30/2018 [facility] Inpatient [id number] Nikky Fernandez 02/02/2018 02/10/2018 [facility] Observation [id number] Thomas Krunal 02/15/2018 02/17/2018 [facility] [id number] Ayush Park 06/08/2018 06/09/2018 [facility] Procedures Procedure Code Date Perfomer Comments Source Insertion of renal artery stent<sup>1</sup> [id number] left neck [place] Partial excision of kidney [id number] [facility] Insertion of renal artery stent<sup>1</sup> [id number] left neck [facility] Partial excision of kidney [id number] [facility] Assessment and Plan Assessment and Plan Date Source Extracted from:Title: [facility] Hospitalist Service Discharge Summary Author: Gorge Goetz MD Date: 02/16/18 [facility] Hospitalist Service Discharge Summary PATIENT NAME:DINESH DIAZ ATTENDING: GORGE DURBIN JR, MD ADMISSION DATE: 02/15/2018 15:57 DISCHARGE DATE:02/16/2018 17:05 DISCHARGE DIAGNOSIS: Fluid overload, unspecified (E87.70) CONSULTING PHYSICIANS/SERVICES: Mk Walters MD Office: Service: Nephrology DISCHARGE CONDITION: Fair HISTORY OF PRESENT ILLNESS: Please see admission history and physical for presenting details HOSPITAL COURSE: The patient was [place] the [facility] [place] [facility] as following his last discharge from the hospitalhe was supposed to receive hemodialysis [facility] however he was discharged from that facility. The nursing facility made attempts to secure hemodialysis at other facilities however this was not possible therefore he was admitted for hemodialysis. He underwent hemodialysis while in the hospital and was doing well thereafter. Social work was able to secure a chair time for dialysis, however this would not be until 02/21/18 in [place]. The patient was specifically instructed to avoid [...] PERTAINING TO DISCHARGE MEDICATIONS DISCHARGE FOLLOWUP: Outpatient [facility], Appointment is scheduled, within: Monday02/21/18, reason: Continued hemodialysis A total of 34 minutes was spent planning discharge which included bedside counseling. Extracted from:Title: Clinical Document Author: Mk Walters MD Date: 02/16/18 Nephrology Note Mk Walters MD [facility] Subjective: Patient seen and examine [...] No edema. Leg ulcers are healing well. 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 Assessment: Anemia ESRD DM2 [...] however, he was discharged back to the [place] [facility] and this patient has been readmitted because of issues with care. -- per Dr. Duenas [facility] course: # Bilateral foot necrotic ulcers [...] recommended SNF and he was discharged to [facility]. # ESRD, anemia of chronic disease [...] PCP within 1-2 weeks Nikky Fernandez MD [facility] Hospitalist Extracted from:Title: Progress Note [...] ppx: heparin Code: full Nikky Fernandez MD [facility] Hospitalist Extracted from:Title: Podiatry Consult [...] Dr. Alvarez will resume care on Monday02/10/2018 [facility] Extracted from:Title: Clinical Document Author: Ludwig [...] In Out Bal 12/20 24hr Tot 1302 [id number] 12/19 24hr Tot [id number] Labs (Last four charted values) WBC H [...] 0.9% IV 100 mL 1 gm IVPB [id number] 25 ml/hr 12/13/17 epoetin ruddy (Epogen (ESRD)) [...] No edema. Has left 2nd toe removed. 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 Assessment: 1. ESRD On HD on TTS schedule. 2. Hyperkalemia: Resolved. 3. Non compliance to dialysis treatment and medication. 4. PAD 5. Gangrene of the toes. Second big toe removed. 6. Cellulitis. Now the sepsis is improving and the white coumt is improving. Plan: Continue IV antibiotics and placement to a [place] and [place] [facility]. Will follow. Patient seen in the dialysis unit. Addendum by Mk Walters MD on 12/21/2017 09:29 Patient has poor flow in the catheter. Will instill CathFlow and try to dialyze him. Will also get Dr. Cheatham to get a tunnelled catheter. Extracted from:Title: Clinical Document Author: Jay Cheatham MD Date: 12/15/17 PATIENT ENCOUNTER: [id number] DATE OF : 1955 DATE OF SURGERY: [...] accessed under ultrasound guidance and a 5 Burkinan arterial sheath was placed. Omni Flush catheter [...] Therefore, systemic heparin was administered. A 6 Burkinan arterial sheath was placed in the right femoral artery (destination sheath). Predilation left using a 5 x 60 balloon was performed in the [id number] popliteal artery. The balloon angioplasty resulted in [...] lower extremities and his been treated at [facility]. He reports that his last angiogram was [...] 0.9% IV 100 mL 1 gm IVPB [id number] 25 ml/hr 12/13/17 clindamycin 900 mg IVPB [...] amputation of his left large toe at [place]. He states that he has not been [...] of imminent and life threatening deterioration. 12/22/2017 [facility] Extracted from:Title: Clinical Document Author: Lynda Espinosa MD Date: 04/05/16 Progress Note - Daily [facility] Completed: Mar, 12:13 by Lynad Espinosa MD RM: 228 - 1P, SE [...] neuro follow up in 2 weeks 04/05/2016 [facility] Plan of Care Plan of Care Date Source DM MICROALBUMIN URINE SCRN (YEARLY) 07/11/2018 [facility] DM HGBA1C (YEARLY) 07/05/2018 [facility] DM RETINAL EXAM (YEARLY) 05/10/2018 [facility] DM FOOT EXAM (YEARLY) 03/27/2018 [facility] COLORECTAL CANCER SCRN ANNUAL (FIT/FOBT) AGE 50 TO 75 2005 [facility] Social History Social History Date Source Smoking StatusStart DateEnd Date Unknown if ever smoked 02/16/2018 7:55:15 02/04/2018 SNF: [facility] Tobacco UseTypesPacks/DayYears UsedDate Never Smoker Smokeless Tobacco: Never Used Tobacco Cessation: Counseling Given: Yes Alcohol UseDrinks/Weekoz/WeekComments Yes 10 Cans of beer 5.0 6 pack of beer a week Sex Assigned at BirthDate Recorded Not on file 07/07/2017 [facility] Social History TypeResponse Substance Abuse Use: None. Alcohol Past, Type Beer. Last use: yesterday.1 Smoking Status Never smoker; Exposure to Tobacco Smoke None; Cigarette Smoking Last 365 Days No; Reg Smoking Cessation Counseling No entered on: 02/15/18 14 beers a week 04/04/2016 [facility] Social [facility] [place] TypeResponse Substance Abuse Use: None. Alcohol Past, [...] Alcohol/Drug Sister RelationNameStatusComments Father Mother Sister 01/19/2018 [facility] Advance Directives Order Name Results Value Date Source Advance Directives Advance Directives Cardiopulmonary Resuscitation 02/15/2018 SNF: [facility] [place] Advance Directives Advance Directives Cardiopulmonary Resuscitation 12/01/2017 SNF: [facility] [place] [facility] Advance Directives Advance Directives Cardiopulmonary Resuscitation 11/30/2017 SNF: [facility] Functional Status No Data Provided for This Section
--- NOTE | 2019-02-28 14:40 | NUR ---
1440pm received room 105 Called report to Angelina ZAMBRANO transfered via stretcher with tele for admission till surgical eval no fix [facility] DR Warren in cardiac failure per Dr camacho. Left sc permacath intact due for HD in am. Left iv intact no s/s infiltration.Pt aware of POC ds/rn
--- NOTE | 2019-02-28 14:45 | NUR ---
1445p Transfer to floor care No gross issues pain pallor pressure. Handoff completed with KENYA Alfaro at bedside Left pt with call light available bed in low position aware of POC. ds/rn
--- NOTE | 2019-02-28 14:49 | NUR ---
Patient admitted to unit from PACU. patient is post op heart cath for cardiac clearance for an AV fistula placement. Right groin access clean and dry. Pedal pulses palpable. Left foot has an old TMA. No wounds noted. Lung delacruz clear to auscultation. Bowel sounds present x4. Ambulates with a walker. Walker at bedside. Patient lives alone in a hotel. Left subclavian HD cath in place. Dressing clean and dry. No edema noted. Left wrist IV in place. IV fluids infusing. Call placed to renal dialysis center @ [phone] to confirm patient's social work nurse but no answer. Spoke with Dr. Ho regarding consult for dialysis and he informed that this is not his patient. Will call attending
--- NOTE | 2019-02-28 16:20 | NUR ---
Spoke with Dr. byers and new order for consult with Dr. castro. Call placed to Dr. Castro to inform
[2019-02-28] MEDS: CARVEDILOL 12.5 MG TAB PO SCH (17:30)
[2019-02-28] MEDS: PREGABALIN 75 MG CAP PO SCH (17:31)
[2019-02-28] MEDS: METOPROLOL TARTRATE 25 MG TAB PO SCH (17:31)
--- NOTE | 2019-02-28 18:53 | NUR ---
RECEIVED REPORT FROM PREVIOUS NURSE. PATIENT IN BED. CALL LIGHT WITHIN REACH
--- NOTE | 2019-02-28 19:10 | NUR ---
DR. TUCKER CALLED BACK AND WAS TOLD ABOUT PATIENT BEING ADMITTED AND DR. TUCKER SAID HE WILL COME SEE THE PATIENT IN THE MORNING
[2019-02-28] MEDS: HYDRALAZINE HCL 25 MG TAB PO SCH (20:29)
[2019-03-01] VITALS (7 sets, daily range): BP systolic 113–174; BP diastolic 62–102
--- NOTE | 2019-03-01 07:23 | NUR ---
GAVE REPORT TO ONCOMING NURSE. CALL LIGHT WITHIN REACH. PATIENT IN BED.
--- NOTE | 2019-03-01 07:57 | NUR ---
Received patient this morning and call to nephrology again for dialysis today. He was consulted yesterday and has not called back yet. Patient gets HD on MWF. A/Ox3, will monitor.
[2019-03-01] MEDS: LISINOPRIL 20 MG TAB PO SCH (09:00)
[2019-03-01] MEDS: HYDRALAZINE HCL 25 MG TAB PO SCH ×3 (09:00→21:23)
[2019-03-01] MEDS: NIFEDIPINE CR 30 MG TAB PO SCH (09:00)
[2019-03-01] MEDS: CARVEDILOL 12.5 MG TAB PO SCH ×2 (09:00→17:00)
[2019-03-01] MEDS: METOPROLOL TARTRATE 25 MG TAB PO SCH ×2 (09:00→17:00)
[2019-03-01] MEDS: PREGABALIN 75 MG CAP PO SCH ×2 (09:00→17:00)
[2019-03-01] MEDS ORDERED: LISINOPRIL 10 MG TAB PO SCH (09:00)
--- NOTE | 2019-03-01 09:30 | NUR ---
Patient signed consent for dialysis per orders by automated process operator.
--- NOTE | 2019-03-01 09:37 | NUR ---
Called and spoke with Hope at [facility] and notified patient needs dialysis today.
--- NOTE | 2019-03-01 09:57 | NUR ---
Patient alert and responsive, feels much better and BP stable at 107/58, rounds by Dr. García and no new orders.
--- NOTE | 2019-03-01 13:17 | NUR ---
IMM EXPLAINED TO PT, SIGNED BY PT AND PLACED ON CHART COPY TO PT IN CARE TRANSITIONS FOLDER
--- NOTE | 2019-03-01 14:00 | NUR ---
Patient alert and responsive, starting hemodialysis at this time and in stable condition
--- NOTE | 2019-03-01 15:05 | History and Physical ---
The patient is status post cardiac catheterization with baseline congestive heart failure, end-stage renal disease, on dialysis. HISTORY OF PRESENT ILLNESS: A 63-year-old male, status post left heart catheterization. Chronic congestive heart failure diagnosed with systolic coronary artery disease of lumbee vessel. The patient underwent cardiac catheterization. There is normal left main trunk. There is a large left anterior descending artery, which give rise to a medium-sized diagonal branch, was 100% occlusive. The left anterior descending artery immediately after the region of the diagonal branch. There was a small AV circumflex artery, which gives rise to a medium-sized bifurcation obtuse marginal branch. There was an 80% stenosis in the proximal AV circumflex artery and 80% stenosis in the mid AV circumflex artery. There is a large dominant right coronary artery with 90% stenosis right at the region of the posterior descending artery. The left ventriculogram demonstrates severe global left ventricular dysfunction with ejection fraction of 50%. The patient is now consulted with Dr. Walter Olvera for possible bypass graft surgery and the patient will need transfer upon accepting. PAST MEDICAL HISTORY: Hypertension, systolic dysfunction congestive heart failure chronically, coronary artery disease, end-stage renal disease, on dialysis. SOCIAL HISTORY: The patient does not smoke or use alcohol. No regular drug. ALLERGIES: NO KNOWN ALLERGIES. HOME MEDICATIONS: List reviewed. PHYSICAL EXAMINATION: VITAL SIGNS: Temperature is 98, blood pressure 174/102, pulse rate 59, respirations 18. GENERAL: The patient is not in acute distress. He is awake. HEENT: Normocephalic, atraumatic. Pupils reactive. Anicteric. NECK: Supple grossly. PULMONARY: Diminished breath sounds at the bases with some rales. CARDIOVASCULAR: S1, S2. Regular rate and rhythm. ABDOMEN: Soft, nontender, nondistended. EXTREMITIES: No gross cyanosis or edema. NEUROLOGIC: No gross focal deficit. LABORATORY DATA: Sodium is 141, potassium 4.2, chloride 100, bicarb 28, BUN 38, creatinine 5.4, glucose 155. WBC 6.5, hemoglobin 15, hematocrit 47, platelets 136. IMPRESSION: 1. Status post left heart catheterization with multivessel disease. 2. End-stage renal disease, on dialysis. 3. Hypertension. PLAN: Consultation with Dr. Walter Olvera. The patient is seen Dr. Mk Walters for his dialysis. The patient is stable. Dr. Von Mendez is on case as well, who did the left heart catheterization. The patient is stable, awaiting for further evaluation by Dr. Olvera. MD TONI Sosa/RYAN /[id number]
--- NOTE | 2019-03-01 15:11 | NUR ---
Rounds by Dr. Olvera and he wants patient to be transferred to the medical center and not discharged.
[2019-03-01] MEDS ORDERED: SODIUM CHLORIDE 0.9% 1000ML 2,000 ML IV PRN (15:30)
[2019-03-01] MEDS ORDERED: HEPARIN SOD (PORCINE) 1000 UNIT/ML SDV IV PRN (15:30)
[2019-03-01] MEDS ORDERED: SODIUM CHLORIDE 0.9% 250ML 500 ML IV PRN (15:30)
--- NOTE | 2019-03-01 15:32 | NUR ---
Nutrition Screen Note RD Recommendation for Physician: - Continue current diet - Recommend checking Phos with next lab draw Plan of Care: RD following, monitoring for tolerance and adequacy Nutrition reason for involvement: LOS Primary Diagnose(s): L heart cath PMH: ESRD on HD, CAD, CHF, HTN Ht: 69 in Wt: 134 lb BMI: 19.8 kg/m2 IBW: [address] Assessment: (03/01) 63 YOM admitted for L heart catheterization. Pt s/p L heart cath yesterday, pt found to have 5 vessel occlusion, and is now planned to AICD placed at some point. Pt sleeping at time of visit, could not wake, and no family present at bedside. Per RN pt eating well, no reported GI distress. Pt pending HD tx today. Pt discussed during am rounds. Chart reviewed. Labs and meds reviewed. Will monitor and continue to follow. Current Diet: Cardiac Malnutrition Evaluation (03/01/19) The patient does not meet criteria for a specified degree of malnutrition at this time. Will re-evaluate at follow-up as appropriate. Unable to evaluate at time of visit, no family present to provide hx. Diet Education Needs Assessment: Diet education indicated, pt not appropriate at this time- unable to wake. Nutrition Care Level: Low Signed: Layne Miramontes RD, LD, [facility]
--- NOTE | 2019-03-01 15:34 | NUR ---
Call to bath house attendant to clarify orders for Epogen 4000units SC.
[2019-03-01] MEDS ORDERED: EPOETIN ALFA 10000 UNIT/ML VIAL SC ONE (18:00)
--- NOTE | 2019-03-01 18:16 | NUR ---
Patient completing dialysis at this time, held beta blockers due to bradycardia, tolerating dialysis well, will monitor.
--- NOTE | 2019-03-01 18:21 | NUR ---
Per supervisor sewing department, Epogen to to give at this time
--- NOTE | 2019-03-01 20:02 | NUR ---
SPOKE TO DR. LAWRENCE AT THIS TIME TO CLARIFY LIFE VEST ORDER. INFORMED MD THAT DR. ALVAREZ WANTED PT TO BE TRANSFERRED DOWNTOWN INSTEAD OF DC HOME. MD ORDERED TO CANCEL LIFE VEST. ALSO MADE AWARE OF EPISODE OF VTACH AT 1625 AND SINUS TACH AT 1937. NO NEW ORDER.
--- NOTE | 2019-03-01 21:52 | Consultation ---
DATE OF CONSULTATION: 03/01/2019 REASON FOR CONSULT: Coronary artery disease, congestive heart failure with EF approximately 15%; requested by Dr. Von Mendez. HISTORY: This is a 63-year-old man with a history of alcohol abuse, who was on end-stage renal failure and was getting Cardiology clearance. During the evaluation, markedly depressed EF was noted. Cardiac catheterization was scheduled and was completed by Dr. Mendez on 02/28/2019 at [facility]. Catheterization reveals an occluded LAD, an 80% proximal lesion of the circumflex, and a 90% stenosis at the origin of the PDA. EF was 15% on left ventriculogram. An echocardiogram as an outpatient apparently also had EF 15%. The patient can walk about 1 block before his "legs give out." He denies PND, orthopnea, or peripheral edema. Activity is quite limited. He quit drinking about 3 years ago. He has no smoking history. The patient is a poor historian and states that he may have had 1 previous myocardial infarction. He also reports possible stroke with right lower extremity weakness, which is largely resolved. A carotid ultrasound performed on 03/01/2019 at [facility] does not show any significant carotid stenosis. MEDICATIONS: At home, metoprolol, hydralazine, nifedipine, carvedilol, lisinopril, meloxicam, Lyrica. PAST MEDICAL HISTORY: Positive for non-insulin dependent diabetes and hypertension. PAST SURGICAL HISTORY: Positive for foot surgery, melanoma excision, and spine surgery. FAMILY HISTORY: Unclear. Both mother and father are . ALLERGIES: NONE KNOWN. SOCIAL HISTORY: Lives by himself. Apparently has a daughter, who lives in [place]. Was a heavy drinker, but quit about 3 years ago. No smoking. No other drugs. REVIEW OF SYSTEMS: GENERAL: Positive for fatigue and malaise. NEUROLOGIC: Negative for focal weakness in extremities or dysarthria. HEENT: Positive for decreased vision and decreased hearing. CARDIAC: Positive for chest discomfort. Negative for palpitation. PULMONARY: Positive for shortness of breath. Negative for wheezing. GI: No constipation or diarrhea. : Negative for hematuria or dysuria. ENDOCRINE: Negative for polyuria or polydipsia. VASCULAR: Positive for possible claudication. HEMATOLOGIC: Negative for clotting or bleeding. SKIN: Negative for rashes or nonhealing ulcers. MUSCULOSKELETAL: Negative for joint pain. INFECTIOUS: Negative for fevers or chills. PSYCHIATRIC: Negative for depression or anxiety. PHYSICAL EXAMINATION: GENERAL: Thin, disheveled, chronically ill-appearing man, who is on dialysis. VITAL SIGNS: Blood pressure 115/75, pulse 80 and regular, respirations 16 and unlabored. NECK: Supple and nontender. No JVD. CARDIAC: Shows a regular rate and rhythm. There is a normal S1, S2. There is a soft 2/6 systolic murmur. No S3 or S4. LUNGS: Clear to auscultation and percussion bilaterally. ABDOMEN: Scaphoid, benign. Good bowel sounds. No hepatosplenomegaly. BACK: No CVA tenderness. No muscular spasm. EXTREMITIES: No cyanosis, clubbing or edema. VASCULAR: Carotids 2+/2+ bilaterally. No carotid bruits. Radials 1+/2+ bilaterally. Left femoral 1+/2+. Right femoral trace/2+. No pulses palpable in either lower extremities distal to either femoral artery. SKIN: No rashes or nonhealing ulcers. MUSCULOSKELETAL: Full range of motion at all joints. No joint swelling. NEUROLOGIC: Cranial nerves II through XII intact. Sensation intact to light touch and pinprick bilaterally. Strength 5/5 in all extremities. LYMPHATICS: Negative for cervical, clavicular, or femoral adenopathy. LABORATORY DATA: Cardiac catheterization as above. Echocardiogram as above. White count 6.9, hemoglobin 15.1, hematocrit 47.1, platelet count 136,000. INR 1.03. PT 14.0. Sodium 141, potassium 4.2, BUN 38, creatinine 5.5. Liver function tests are normal. IMPRESSION: Severe coronary artery disease and congestive heart failure. I agree with the need for further evaluation. Heart failure evaluation or high risk intervention may be warranted. We will discuss with his other physicians. Thank you very much for asking me to see this nice man. MD FIDE DiamondL/RYAN /[id number]
[2019-03-02] VITALS: BP 142/84
[2019-03-02 04:00] VITALS: BP 152/96
--- NOTE | 2019-03-02 07:29 | NUR ---
Received patient, alert and in bed sleeping, call light within reach, no adverse events overnight per report, bed in low locked position and will monitor.
[2019-03-02 08:18] VITALS: BP 152/96
[2019-03-02] MEDS: METOPROLOL TARTRATE 25 MG TAB PO SCH (09:00)
[2019-03-02] MEDS: CARVEDILOL 12.5 MG TAB PO SCH (09:00)
[2019-03-02] MEDS: LISINOPRIL 20 MG TAB PO SCH (09:00)
[2019-03-02] MEDS: HYDRALAZINE HCL 25 MG TAB PO SCH (09:00)
[2019-03-02] MEDS: PREGABALIN 75 MG CAP PO SCH (09:00)
[2019-03-02] MEDS: NIFEDIPINE CR 30 MG TAB PO SCH (09:00)
[2019-03-02 09:08] VITALS: BP 143/83
[2019-03-02] MEDS ORDERED: EPOETIN ALFA 10000 UNIT/ML VIAL SC NR (11:30)
--- NOTE | 2019-03-02 11:30 | NUR ---
Rounds by nephrologists and wants Epogen given today. Dose administered. Rounds by appeals nurse and informed patient does not want to go to the medical center right away. He wants to go home for about 2 days before he goes to the medical center. Call to [facility] and they have come in to place the Life [facility]est.
--- NOTE | 2019-03-02 14:14 | NUR ---
Patient alert and responsive, rounds by Dr. Mensah and call to Dr. Olvera regarding patient's intentions to discharge and follow up with surgery next week. Spoke with Dr. Olvera and Dr. Mensah spoke with him too and clarified and that patient will go home and Dr. Olvera's office will call to set up surgical procedure. Patient discharged by attending.
--- NOTE | 2019-03-02 14:15 | Discharge Summary ---
CONSULTANTS: Dr. Von Mendez. Dr. Mk Olvera FINAL DIAGNOSES: 1. Ischemic cardiomyopathy associated with multivessel disease, will need bypass graft surgery. 2. End-stage renal disease, on dialysis. HISTORY OF PRESENT ILLNESS: A 63 years male status post left heart catheterization done by Dr. Von Mendez. Postoperatively, the patient will require bypass surgery. The patient is on dialysis. Arrangement has been made for the patient to go to the [facility] for his surgery, but now the patient want to go home and he is very adamant. 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 The patient then will follow up with Dr. Olvera for plan for bypass surgery after outpatient visit. I discussed with the patient at length. A LifeVest has been arranged for the patient and he has in his room. 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 The patient is otherwise stable now. No chest pain or shortness of breath. He did receive dialysis and he will start dialysis on Monday. The patient is otherwise stable. MD TONI Sosa/RYAN /[id number]
--- NOTE | 2019-03-02 16:03 | NUR ---
Patient has Life [facility]est, provided with discharge documentation, no prescriptions, contacts given for Dr. Olvera's office, IV line removed and cath tip in place, dressing applied, patient is discharged but states will be leaving soon.
== END 2019-03-02 17:00 | disposition home or self-care (01) | DRG 286 ==
LOC: CATH LAB 06:03 → PACU V 13:54 → MED/SURG 14:56
PROVIDERS: ADMIT Internal Medicine Cardiovascular Disease; ATTEND Internal Medicine Cardiovascular Disease
PROC: 4A023N7 Measurement of Cardiac Sampling and Pressure, Left Heart, Percutaneous Approach (ICD-10-PCS; principal; 2019-02-28)
PROC: B2111ZZ Fluoroscopy of Multiple Coronary Arteries using Low Osmolar Contrast (ICD-10-PCS; 2019-02-28)
PROC: B2151ZZ Fluoroscopy of Left Heart using Low Osmolar Contrast (ICD-10-PCS; 2019-02-28)
PROC: 5A1D70Z Performance of Urinary Filtration, Intermittent, Less than 6 Hours Per Day (ICD-10-PCS; 2019-02-28)
DX: I25.10 Atherosclerotic heart disease of native coronary artery without angina pectoris (principal); N18.6 End stage renal disease; I13.2 Hypertensive heart and chronic kidney disease with heart failure and with stage 5 chronic kidney disease, or end stage renal disease; I50.22 Chronic systolic (congestive) heart failure; I25.82 Chronic total occlusion of coronary artery; E11.22 Type 2 diabetes mellitus with diabetic chronic kidney disease; Z99.2 Dependence on renal dialysis; F10.11 Alcohol abuse, in remission; I25.5 Ischemic cardiomyopathy; I25.2 Old myocardial infarction
CPT/HCPCS: 36415; 71046; 80053; 82948; 85025; 85610; 85730; 86704; 86705; 86706; 86707; 87340; 90962; 93458; 93880; C1760; C1769; J1644; J2001; J2250; J3010; J7030; Q4081; Q9967